=== PATIENT | male | born 1945 | race Caucasian/White ===

== ENCOUNTER → 2019-07-13 08:14 | Outpatient (BNVA) | payer MEDICARE, OTHER, SELFPAY | PROVIDERS: Family Provider Family Medicine; PCP Family Medicine; Referring Provider Family Medicine; Visit Provider Family Medicine | DX: E11.9 Type 2 diabetes mellitus without complications (principal) | CPT/HCPCS: 80048; 83036 ==

== ENCOUNTER → 2019-09-02 12:20 | Outpatient (BNVA) | payer MEDICARE, OTHER, SELFPAY | PROVIDERS: Family Provider Family Medicine; PCP Family Medicine; Referring Provider Family Medicine; Visit Provider Anesthesiology Pain Medicine | DX: M47.816 Spondylosis without myelopathy or radiculopathy, lumbar region (principal); Z79.891 Long term (current) use of opiate analgesic | CPT/HCPCS: 99205 ==

== ENCOUNTER → 2019-09-10 12:29 | Outpatient (BNVA) | payer MEDICARE, OTHER, SELFPAY | PROVIDERS: Family Provider Family Medicine; PCP Family Medicine; Visit Provider Anesthesiology Pain Medicine | DX: M47.816 Spondylosis without myelopathy or radiculopathy, lumbar region (principal) | CPT/HCPCS: 64635; 64636; 77003; J1030; J2001 ==

== ENCOUNTER → 2019-09-21 09:18 | Outpatient (BNVA) | payer MEDICARE, OTHER, SELFPAY | PROVIDERS: Family Provider Family Medicine; PCP Family Medicine; Visit Provider Family Medicine | DX: Z94.0 Kidney transplant status (principal) | CPT/HCPCS: 80053; 80197; 81000; 82310; 82570; 83735; 83970; 84156; 84550; 85025 ==

== ENCOUNTER → 2019-09-24 09:07 | Outpatient (BNVA) | payer MEDICARE, OTHER, SELFPAY | PROVIDERS: Family Provider Family Medicine; PCP Family Medicine; Visit Provider Anesthesiology Pain Medicine | DX: M47.816 Spondylosis without myelopathy or radiculopathy, lumbar region (principal); M54.9 Dorsalgia, unspecified; M54.2 Cervicalgia; M77.12 Lateral epicondylitis, left elbow | CPT/HCPCS: 99213 ==

== ENCOUNTER → 2019-10-12 08:58 | Outpatient (BNVA) | payer MEDICARE, OTHER, SELFPAY | PROVIDERS: Family Provider Family Medicine; PCP Family Medicine; Referring Provider Family Medicine; Visit Provider Family Medicine | DX: E11.9 Type 2 diabetes mellitus without complications (principal) | CPT/HCPCS: 80048; 82985 ==

== ENCOUNTER → 2019-11-16 09:10 | Outpatient (BNVA) | payer MEDICARE, OTHER, SELFPAY | PROVIDERS: Family Provider Family Medicine; PCP Family Medicine; Visit Provider Anesthesiology Pain Medicine | DX: M54.41 Lumbago with sciatica, right side (principal); M47.816 Spondylosis without myelopathy or radiculopathy, lumbar region; M54.9 Dorsalgia, unspecified; M54.2 Cervicalgia; M77.12 Lateral epicondylitis, left elbow; Z79.891 Long term (current) use of opiate analgesic | CPT/HCPCS: 99214 ==

== ENCOUNTER → 2019-11-24 13:28 | Outpatient (BNVA) | payer MEDICARE, OTHER, SELFPAY | PROVIDERS: Family Provider Family Medicine; PCP Family Medicine; Visit Provider Anesthesiology Pain Medicine | DX: M54.9 Dorsalgia, unspecified (principal); M54.41 Lumbago with sciatica, right side; M47.816 Spondylosis without myelopathy or radiculopathy, lumbar region; Z79.891 Long term (current) use of opiate analgesic | CPT/HCPCS: 64483; 64484; J1040; J2001; J3490 ==

== ENCOUNTER → 2019-12-17 09:08 | Outpatient (BNVA) | payer MEDICARE, OTHER, SELFPAY | PROVIDERS: Family Provider Family Medicine; PCP Family Medicine; Referring Provider Family Medicine; Visit Provider Family Medicine | DX: Z94.0 Kidney transplant status (principal) | CPT/HCPCS: 80053; 80197; 82310; 82570; 83735; 83970; 84156; 84550; 85025 ==

== ENCOUNTER → 2020-01-07 08:27 | Outpatient (BNVA) | payer MEDICARE, OTHER, SELFPAY | PROVIDERS: Family Provider Family Medicine; PCP Family Medicine; Visit Provider Family Medicine | DX: Z94.0 Kidney transplant status (principal) | CPT/HCPCS: 80053; 80197; 82310; 83735; 83970; 85025 ==

== ENCOUNTER 2020-01-17 13:28 | Emergency (ER) | payer MEDICARE, OTHER, SELFPAY ==
[2020-01-17 13:36] VITALS: BP 206/94; PULSE 79; RESP 20; TEMP 36.6; O2SAT 98; BMI 30.1
[2020-01-17 14:18] LABS: Basophils % 0.2 %; Eosinophils % 0.4 %; Hematocrit 47.9 % (42.0-52.0); Hemoglobin 14.9 g/dL (11.7-16.6); Lymphocytes # 0.9 10^3/uL (0.8-4.8); Lymphocytes % 10.2 %; Mean Corpuscular HGB Conc 31.1 g/dL (30.0-36.0); Mean Corpuscular Hemoglobin 27.7 pg (28.0-34.0); Mean Corpuscular Volume 89.2 fL (80-94); Mean Platelet Volume 10.1 fL (7.4-10.4); Monocytes # 0.9 10^3/uL (0.2-0.9); Monocytes % 9.2 %; Neutrophils # 7.33 10^3/uL (1.8-7.7); Neutrophils % 79.6 %; Nucleated Red Blood Cells % 0 %; Platelet Count 166 10^3/cmm (130-400); Red Blood Count 5.37 10^6/uL (4.1-5.3); Red Cell Distribution Width 14.5 % (12.1-15.1); White Blood Count 9.2 10^3/uL (4.0-10.0)
[2020-01-17 14:27] LABS: Partial Thromboplastin Time 35.8 SECONDS (23.9-36.7)
[2020-01-17 14:31] LABS: Urine Color Red (Yellow)
[2020-01-17 14:32] LABS: Bilirubin Urine Neg (NEGATIVE); Blood Urine 3+ (Negative); Glucose Urine UA Norm (Normal); Ketones Urine Negative (Negative); Leukocyte Esterase Urine 2+ (Negative); Nitrate Urine Negative (Negative); Protein Urine 1+ (Negative); Urobilinogen Urine Neg (Negative); pH Urine 8 (5-7)
[2020-01-17 14:33] LABS: Bacteria Urine 2+; RBC Urine 25-40 /hpf (0-2); Squamous Epithelial Cell Urine 0-4 (0-5); WBC Urine 55-80 /hpf (0-5)
[2020-01-17 14:34] LABS: Add Urine Culture? Yes
[2020-01-17 14:39] LABS: Alanine Aminotransferase 22 U/L (0-41); Albumin Level 4.7 g/dL (3.5-5.2); Alkaline Phosphatase 94 IU/L (40-130); Anion Gap 14.5 (5-19); Aspartate Amino Transferase 21 U/L (0-40); Blood Urea Nitrogen 18 mg/dL (8-23); Calcium 10.7 mg/dL (8.5-10.5); Carbon Dioxide 27 mmol/L (22-29); Chloride 102 mmol/L (98-107); Globulin 2.7 g/dL (1.3-4.6); Glucose 56 mg/dL (65-115); Osmolality Calculated 282 mOsm/kg (285-295); Potassium 4.5 mmol/L (3.5-5.1); Sodium 139 mmol/L (136-145); Total Protein 7.4 g/dL (6.6-8.7)
--- NOTE | 2020-01-17 14:41 | ED_ITS ---
HPI - Male Genitourinary General: Chief complaint: Urogenital-Male Stated complaint: blood in urine Time Seen by Provider: 01/17/20 14:04 History of Present Illness: HPI Narrative: Patient is a 74-year-old male who comes to the ED with UTI symptoms. Patient has a past medical history of diabetes, A. fib, dyslipidemia, end-stage renal disease with kidney transplant. The last 24 hours patient started developing increased urine frequency, visible blood in the urine and pain/burning sensation when urinating. Patient denies fever, chills, nausea/vomiting, abdominal pain, chest pain or shortness of breath or bowel symptoms. Associated symptoms: Reports dysuria and hematuria; Deny nausea or vomiting Review of Systems Const: Denies: fever(s), chills or fatigue Eyes: Denies: change in vision or eye discomfort ENMT: Denies: throat pain, odynophagia, nasal discharge or nasal congestion Card: Denies: chest pain, palpitations, edema, swelling of feet/ankles, dyspnea on exertion or orthopnea Resp: Denies: dyspnea, productive cough or non-productive cough GI: Denies: abdominal pain, nausea, vomiting, diarrhea, constipation or hematochezia : Reports: flank pain (Patient started developing some left flank pain today.), dysuria, urinary frequency and hematuria; Denies: difficulty urinating Musc: Denies: neck pain, back pain or extremity swelling Skin/Breast: Denies: rash or new lesions Neuro: Denies: headache(s), numbness in extremities or weakness in extremities PFS ED PFSH: Medical History Aortic root enlargement Diabetes Dyslipidemia End stage renal disease Essential hypertension assisted (current) use of opiate analgesic Myocardial infarction Pain management contract signed Paroxysmal atrial fibrillation Sleep apnea SVT (supraventricular tachycardia) Warfarin anticoagulation Surgical History Hx of amputation below knee Hx of CABG Hx of kidney transplant Family History Other CAD (coronary artery disease) Cancer Diabetes Hypertension Social History Smoking and tobacco status: former smoker Alcohol intake: former History of recent travel: No Physical Exam Const: COMMON NORMALS: no acute distress, patient oriented x3 and alert GENERAL APPEARANCE: cooperative and comfortable HENMT: COMMON NORMALS: normocephalic HEAD & SCALP: normocephalic MOUTH: Normal oral and palatal mucosa present THROAT: posterior oropharynx normal and uvula midline Neck/C-Spine: COMMON NORMALS: supple GENERAL: Yes normal visual inspection Resp: COMMON NORMALS: normal respiratory effort, No retractions, No use of accessory muscles and clear to auscultation bilaterally AUSCULTATION: clear to auscultation bilaterally Cardio: COMMON NORMALS: regular rate, S1 normal heart sound present, S2 normal heart sound present, No gallops present (Cardio), No clicks present (Cardio), No murmurs present (Cardio) and Peripheral pulses 2+ throughout RATE: regular rate RHYTHM: abnormal rhythm irregularly irregular HEART SOUNDS: S1 normal heart sound present and S2 normal heart sound present PERIPHERAL PULSES: Peripheral pulses 2+ throughout GI: COMMON NORMALS: Normal to inspection, nondistended, normoactive bowel sounds present, Soft to palpation and no masses AUSCULTATION: Yes normoactive bowel sounds PALPATION: Yes Soft to palpation and Yes Tenderness to palpation present (GI) Details: LLQ (Patient has had kidney transplant and it is placed in the left lower quadrant area of abdomen. He has some tenderness to palpation in that area.) : BLADDER/KIDNEY EXAM: Yes CVA tenderness on the left (Patient had left kidney transplanted and it is in his left lower quadrant of the abdomen and that is currently where he is tender upon palpation.) Back/Pelvis: GENERAL BACK: Yes CVA tenderness Extremity: GENERAL: Yes normal exam except as noted and Yes amputation (Left lower leg amputation above the knee.) Neuro: COMMON NORMALS: patient oriented x3 and moves all extremities SENSORIUM/ORIENTATION: Yes alert Skin: COMMON NORMALS: no rashes or lesions noted GENERAL SKIN EXAM: no rashes or lesions noted and dry skin Course Vital Signs: Vital signs: Vital Signs Temperature 97.9 F 01/17/20 13:36 Pulse Rate 98 01/17/20 16:28 Respiratory Rate 17 01/17/20 16:28 Blood Pressure 162/83 01/17/20 15:17 Pulse Oximetry 97 01/17/20 16:28 MDM - Male MDM Narrative: Medical decision making narrative: she saw patient is a 74-year-old male who comes to the ED with UTI symptoms. Symptoms started approximately 24 hours ago. Sensation when he urinates, blood in the urine and increased frequency.Symptoms include burning Patient has a past medical history of diabetes, A. fib, NC below the knee amputation, end-stage renal disease with kidney transplant approximately 8 years ago.Patient states this is the first UTI he has had since kidney transplant. White blood cell count 9.2. And a creatinine of 1.4 Which appears to be patient's baseline creatinine level after looking over previous labs. Patient was given a dose of IV Rocephin while here in the unit and discharged with a prescription of ciprofloxacin. I told patient to follow-up with his kidney doctor in the next 3 days to discuss UTI. I also told to follow-up with his PCP in 3 to 5 days. Return to ED precautions given. Patient understood and agreed with plan. Lab Data: Attestation: I reviewed the patient's lab results. Labs: Lab Results 01/17/20 01/17/20 01/17/20 Range/Units 13:59 14:13 14:13 WBC 9.2 (4.0-10.0) 10^3/ uL RBC 5.37 H (4.1-5.3) 10^6/u L Hgb 14.9 (11.7-16.6) g/dL Hct 47.9 (42.0-52.0) % MCV 89.2 (80-94) fL MCH 27.7 L (28.0-34.0) pg MCHC 31.1 (30.0-36.0) g/dL RDW 14.5 (12.1-15.1) % Plt Count 166 (130-400) 10^3/c mm MPV 10.1 (7.4-10.4) fL Neut % (Auto) 79.6 % Lymph % (Auto) 10.2 % [place] % (Auto) 9.2 % Eos % (Auto) 0.4 % Baso % (Auto) 0.2 % Neut # (Auto) 7.33 (1.8-7.7) 10^3/u L Lymph # (Auto) 0.9 (0.8-4.8) 10^3/u L [place] # (Auto) 0.9 (0.2-0.9) 10^3/u L Eos # (Auto) 0.0 (0.0-0.8) 10^3/u L Baso # (Auto) 0.0 (0.0-0.1) 10^3/u L Nucleated RBC % (a uto) 0 % Nucleated RBCs # 0.0 /100WBC PT 26.20 H (10.5-13.3) SECO NDS INR 2.30 H (0.8-1.2) APTT 35.8 (23.9-36.7) SECO NDS Sodium (136-145) mmol/L Potassium (3.5-5.1) mmol/L Chloride (98-107) mmol/L Carbon Dioxide (22-29) mmol/L Anion Gap (5-19) BUN (8-23) mg/dL Creatinine (0.7-1.2) mg/dL GFR Calculation Glucose (65-115) mg/dL Calculated Osmolal ity (285-295) mOsm/k g Calcium (8.5-10.5) mg/dL Total Bilirubin (0.15-1.2) mg/dL AST (0-40) U/L ALT (0-41) U/L Alkaline Phosphata se (40-130) IU/L Total Protein (6.6-8.7) g/dL Albumin (3.5-5.2) g/dL Globulin (1.3-4.6) g/dL Urine Color Red (Yellow) Urine Appearance Sl cloudy A (CLEAR) Urine pH 8 H (5-7) Ur Specific Gravit y 1.010 (1.005-1.030) Urine Protein 1+ H (Negative) Urine Glucose (UA) Norm (Normal) Urine Ketones Negative (Negative) Urine Blood 3+ H (Negative) Urine Nitrate Negative (Negative) Urine Bilirubin Neg (NEGATIVE) Urine Urobilinogen Neg (Negative) mg/dL Ur Leukocyte Kalee ase 2+ H (Negative) Urine RBC 25-40 H (0-2) /hpf Urine WBC 55-80 H (0-5) /hpf Ur Squamous Epith Cells 0-4 H (0-5) Amorphous Sediment Not Reportable Urine Bacteria 2+ H (NONE) 01/17/20 Range/Units 14:13 WBC (4.0-10.0) 10^3/ uL RBC (4.1-5.3) 10^6/u L Hgb (11.7-16.6) g/dL Hct (42.0-52.0) % MCV (80-94) fL MCH (28.0-34.0) pg MCHC (30.0-36.0) g/dL RDW (12.1-15.1) % Plt Count (130-400) 10^3/c mm MPV (7.4-10.4) fL Neut % (Auto) % Lymph % (Auto) % [place] % (Auto) % Eos % (Auto) % Baso % (Auto) % Neut # (Auto) (1.8-7.7) 10^3/u L Lymph # (Auto) (0.8-4.8) 10^3/u L [place] # (Auto) (0.2-0.9) 10^3/u L Eos # (Auto) (0.0-0.8) 10^3/u L Baso # (Auto) (0.0-0.1) 10^3/u L Nucleated RBC % (a uto) % Nucleated RBCs # /100WBC PT (10.5-13.3) SECO NDS INR (0.8-1.2) APTT (23.9-36.7) SECO NDS Sodium 139 (136-145) mmol/L Potassium 4.5 (3.5-5.1) mmol/L Chloride 102 (98-107) mmol/L Carbon Dioxide 27 (22-29) mmol/L Anion Gap 14.5 (5-19) BUN 18 (8-23) mg/dL Creatinine 1.4 H (0.7-1.2) mg/dL GFR Calculation Not Reportable Glucose 56 L (65-115) mg/dL Calculated Osmolal ity 282 L (285-295) mOsm/k g Calcium 10.7 H (8.5-10.5) mg/dL Total Bilirubin 1.0 (0.15-1.2) mg/dL AST 21 (0-40) U/L ALT 22 (0-41) U/L Alkaline Phosphata se 94 (40-130) IU/L Total Protein 7.4 (6.6-8.7) g/dL Albumin 4.7 (3.5-5.2) g/dL Globulin 2.7 (1.3-4.6) g/dL Urine Color (Yellow) Urine Appearance (CLEAR) Urine pH (5-7) Ur Specific Gravit y (1.005-1.030) Urine Protein (Negative) Urine Glucose (UA) (Normal) Urine Ketones (Negative) Urine Blood (Negative) Urine Nitrate (Negative) Urine Bilirubin (NEGATIVE) Urine Urobilinogen (Negative) mg/dL Ur Leukocyte Kalee ase (Negative) Urine RBC (0-2) /hpf Urine WBC (0-5) /hpf Ur Squamous Epith Cells (0-5) Amorphous Sediment Urine Bacteria (NONE) Discharge Plan Discharge Patient Disposition: Home Clinical Impression: Acute cystitis with hematuria Condition: Stable Prescriptions: New ciprofloxacin HCl 250 mg tablet 250 mg PO BID 10 Days Qty: 20 RF: 0 No Action aspirin [Adult Low Dose Aspirin] 81 mg tablet,delayed release (DR/EC) 81 mg PO DAILY RF: 0 tacrolimus 1 mg capsule 1 mg PO Q12H RF: 0 mycophenolate mofetil 250 mg capsule 500 mg PO BID RF: 0 prednisone 5 mg tablet 5 mg PO DAILY RF: 0 carvedilol 12.5 mg tablet 12.5 mg PO Q12H RF: 0 famotidine [Acid Black Oxide Coating Equipment Tender (famotidine)] 20 mg tablet 20 mg PO DAILY RF: 0 cholecalciferol (vitamin D3) 3,000 unit tablet 3,000 unit PO DAILY RF: 0 magnesium oxide 400 mg magnesium tablet 400 mg PO DAILY RF: 0 cetirizine [All Day Allergy (cetirizine)] 10 mg tablet 5 mg PO DAILY PRN (Reason: allergies) RF: 0 atorvastatin [Lipitor] 20 mg tablet 20 mg PO DAILY RF: 0 digoxin 125 mcg (0.125 mg) tablet 125 mcg PO DAILY 90 Days Qty: 90 RF: 3 warfarin 5 mg tablet 5 mg PO DAILY 90 Days Qty: 90 RF: 3 tamsulosin 0.4 mg capsule 0.4 mg PO DAILY 90 Days Qty: 90 RF: 3 amlodipine 5 mg tablet 5 mg PO DAILY RF: 0 insulin aspart U-100 [Novolog U-100 Insulin aspart] 100 unit/mL solution See Rx Instructions .ROUTE .COMPLEX RF: 0 Discharge Orders: Discharge Order (Routine); Ordered 01/17/20 Ordered By: Andrea Mejia Referrals: Mercy Priest MD [Primary Care Provider] - Discharge Diet: Regular Discharge Activity: Resume usual activity Patient Instructions: Urinary Tract Infection in Men (ED) Activity Restrictions/Additional Instructions: Follow-up with medical provider as directed in 3 to 5 days. Take medications as prescribed. Return to the ER or your medical provider if condition worsens. Please read and understand discharge instructions. If any questions, please ask. Discharge Date/Time: 01/17/20 16:11 Coding Level of Care Code ED Application Infrastructure Engineer for Chg Fwd Exam Comprehensive
[2020-01-17 15:17] VITALS: BP 162/83; PULSE 77; RESP 17; O2SAT 98
[2020-01-17] MEDS: cefTRIAXone 2,000 MG in sodium chloride 0.9% (plus) 50 ML 100 MG IV (15:42)
[2020-01-17 16:28] VITALS: PULSE 98; RESP 17; O2SAT 97
== END 2020-01-17 16:11 | disposition home or self-care (01) ==
PROVIDERS: Emergency Medicine; Emergency Provider Physician Assistant; PCP Family Medicine
DX: N30.01 Acute cystitis with hematuria (principal); Z79.01 Long term (current) use of anticoagulants; Z79.82 Long term (current) use of aspirin; Z79.4 Long term (current) use of insulin; E11.22 Type 2 diabetes mellitus with diabetic chronic kidney disease; I12.0 Hypertensive chronic kidney disease with stage 5 chronic kidney disease or end stage renal disease; N18.6 End stage renal disease; E78.5 Hyperlipidemia, unspecified; I25.2 Old myocardial infarction; I48.0 Paroxysmal atrial fibrillation; Z95.1 Presence of aortocoronary bypass graft; Z94.0 Kidney transplant status; Z87.891 Personal history of nicotine dependence
CPT/HCPCS: 12345; 36415; 80053; 81001; 85025; 85610; 85730; 87077; 87086; 87186; 96365; 99283; J0696

== ENCOUNTER 2020-01-17 18:57 | Emergency (ER) | payer MEDICARE, OTHER, SELFPAY ==
[2020-01-17 19:05] VITALS: BP 129/67; PULSE 112; RESP 18; TEMP 37.4; O2SAT 93
--- NOTE | 2020-01-17 19:17 | XRR_ITS ---
PROCEDURE INFORMATION: Exam: XR Chest, 1 View Exam date and time: 01/17/2020 8:11 PM Age: 74 years old Clinical indication: Prior surgery; Surgery date: 6+ months; Surgery type: Open heart-cabg. Kidney transplant; Patient HX: Fever, confusion. UTI TECHNIQUE: Imaging protocol: XR of the chest Views: 1 view. COMPARISON: CT chest wo con [id number] 06/02/2018 9:05 AM FINDINGS: Lungs: Mild airspace disease left lung base. Possible small subpulmonic effusion. Consider two-view chest. Pleural space: See Lungs finding. Heart/Mediastinum: Cardiac silhouette is enlarged. Bones/joints: prior sternotomy. Prior surgical fixation of the caudal aspect of the cervical spine. XR/XR chest 1V portable [id number] IMPRESSION: Mild airspace disease left lung base. Possible small subpulmonic effusion. Consider two-view chest.
--- NOTE | 2020-01-17 19:18 | ECG_ITS ---
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 Measurements Intervals [place] Rate: 103 P: IA: -1 QRS: 9 QRSD: 159 T: 60 QT: 316 QTc: 416 Interpretive Statements ATRIAL FIBRILLATION WITH RAPID VENTRICULAR RESPONSE RIGHT BUNDLE BRANCH BLOCK [120+ ms QRS DURATION, UPRIGHT V1, 40+ ms S IN I/aVL/V4/V5/V6] No previous ECG available for comparison Electronically Signed On 01-17-2020 21:33:59 CDT by Conchita Muhammad M.D. [id number]
[2020-01-17 19:31] VITALS: BP 145/82; PULSE 112; RESP 20; O2SAT 94
[2020-01-17 19:47] LABS: ABG PCO2 29.2 mmHg (35-45); ABG PH Result 7.48 (7.35-7.45); Arterial Blood Gas Hematocrit 42.3 % (42-52); Blood Gas Allen Test Pos; Blood Gas Sample Site Radial, left; Blood Gas Sample Type Arterial; HCO3 ABG 21.5 mmol/L (22-26)
[2020-01-17 19:54] LABS: Basophils % 0.2 %; Eosinophils % 0.2 %; Hematocrit 42.1 % (42.0-52.0); Hemoglobin 13.4 g/dL (11.7-16.6); Lymphocytes # 0.2 10^3/uL (0.8-4.8); Lymphocytes % 3.9 %; Mean Corpuscular HGB Conc 31.8 g/dL (30.0-36.0); Mean Corpuscular Hemoglobin 28.3 pg (28.0-34.0); Mean Corpuscular Volume 88.8 fL (80-94); Mean Platelet Volume 10.8 fL (7.4-10.4); Monocytes # 0.1 10^3/uL (0.2-0.9); Monocytes % 2.2 %; Neutrophils # 5.47 10^3/uL (1.8-7.7); Neutrophils % 92.8 %; Nucleated Red Blood Cells % 0 %; Platelet Count 116 10^3/cmm (130-400); Red Blood Count 4.74 10^6/uL (4.1-5.3); Red Cell Distribution Width 14.2 % (12.1-15.1); White Blood Count 5.9 10^3/uL (4.0-10.0)
[2020-01-17] MEDS: ondansetron 2 mg/ML SDV 2 mL 4 MG IVP (20:03)
[2020-01-17] MEDS: sodium chloride 0.9% 1,000 ML 999 ML IV ×2 (20:04→23:45)
[2020-01-17 20:05] LABS: Lactic Sepsis W/Reflex 1.8 mmol/L (0.5-2.2)
[2020-01-17 20:13] LABS: Alanine Aminotransferase 18 U/L (0-41); Albumin Level 3.9 g/dL (3.5-5.2); Alkaline Phosphatase 83 IU/L (40-130); Aspartate Amino Transferase 19 U/L (0-40); Blood Urea Nitrogen 25 mg/dL (8-23); Calcium 9.8 mg/dL (8.5-10.5); Carbon Dioxide 20 mmol/L (22-29); Chloride 101 mmol/L (98-107); Globulin 2.3 g/dL (1.3-4.6); Glucose 224 mg/dL (65-115); Magnesium 1.3 mg/dL (1.7-2.3); Osmolality Calculated 284 mOsm/kg (285-295); Sodium 135 mmol/L (136-145); Total Bilirubin 1.1 mg/dL (0.15-1.2); Total Protein 6.2 g/dL (6.6-8.7)
[2020-01-17 20:15] LABS: Troponin(5th) Baseline 56 ng/L (0-15)
--- NOTE | 2020-01-17 20:22 | CTR_ITS ---
PROCEDURE INFORMATION: Exam: CT Abdomen And Pelvis Without Contrast Exam date and time: 01/17/2020 8:48 PM Age: 74 years old Clinical indication: Abdominal pain; Prior surgery; Surgery type: Left kidney transplant, appy; Additional info: Flank/abdominal pain TECHNIQUE: Imaging protocol: Computed tomography of the abdomen and pelvis without contrast. Radiation optimization: All CT scans at this facility use at least one of these dose optimization techniques: automated exposure control; mA and/or kV adjustment per patient size (includes targeted exams where dose is matched to clinical indication); or iterative reconstruction. COMPARISON: CT abdomen pelvis wo con [id number] 05/20/2018 2:29 PM RADIATION DOSE METRICS: Total DLP (mGy-cm): 1673.51 FINDINGS: Lungs: Nonspecific bibasilar opacity is present, consistent with atelectasis, edema, or pneumonia. Heart: The heart is enlarged. The inferior vena cava is enlarged compatible probable right heart failure. Mediastinal space: A small hiatal hernia is present. Liver: There is a 1 cm hypodense lesion right lobe of the liver image 31 today that previously measured 6 mm. There is a 7 mm hypodensity in the posterior right lobe of the liver image 26 today that previously measured 5 mm. The liver is enlarged. Gallbladder and bile ducts: Multiple calcified gallstones are present. There is no wall thickening or pericholecystic fluid to suggest cholecystitis. Pancreas: Normal. No ductal dilation. Spleen: Normal. No splenomegaly. Adrenals: Normal. No mass. Kidneys and ureters: There is a transplanted kidney in the left iliac fossa. No hydronephrosis or obstructing calculus but there is abundant perinephric fat stranding which has increased since the prior exam. The measurement of the transplanted kidney is also slightly larger today measuring 9.1 by 6.2 by 9.0 cm or previously it was 8.9 by 6.0 x 8.6 cm. The [place] kidneys are atrophic with extensive renal vascular calcifications and/or nonobstructive nephrolithiasis without hydronephrosis. Stomach and bowel: There is no evidence of intestinal perforation or obstruction. There is no evidence of intestinal perforation or obstruction. There is no evidence of colitis/diverticulitis. Appendix: The appendix is not definitively identified. However, there is no CT evidence of a right lower quadrant inflammatory process. Intraperitoneal space: Unremarkable. No free air. No significant fluid collection. Vasculature: The aorta demonstrates moderate atherosclerotic calcification. Lymph nodes: Unremarkable.No enlarged lymph nodes. Bladder: There is nonspecific bladder wall thickening. This may be related to cystitis versus incomplete distention. Reproductive: The prostate demonstrates moderate nonspecific enlargement. The seminal vesicles are normal. Bones/joints: There is severe degenerative changes in the lower lumbar spine. No acute bony abnormality. Soft tissues: There is a fat-containing umbilical hernia. Other findings: . CT/CT kidney stone [id number] IMPRESSION: 1. Nonspecific bibasilar opacity is present, consistent with atelectasis, edema, or pneumonia. 2. There is a transplanted kidney in the left iliac fossa. No hydronephrosis or obstructing calculus but there is abundant perinephric fat stranding which has increased since the prior exam. Transplanted kidney is also larger concerning for edema as seen with rejection or pyelonephritis. 3. There is diffuse bladder wall thickening that may reflect lack of distention versus cystitis. 4. Two indeterminate small hypodensities are noted in the liver and appears slightly larger than the prior exam. This may reflect metastatic disease. MRI may be helpful for further characterization. Radiation Dose CTDIVOL = (mGy): DLP = 1673.51 (mGy-cm)
[2020-01-17 20:24] LABS: Alcohol Level < 10 mg/dL (0-10)
--- NOTE | 2020-01-17 20:42 | ED_ITS ---
Documented by User: Keke Hartley 01/17/20 23:30 HPI - Altered Mental Status General: Chief Complaint: Altered Mental Status Stated Complaint: fever Time Seen by Provider: 01/17/20 19:10 Source: patient Mode of arrival: wheelchair Limitations: no limitations History of Present Illness: HPI narrative: Mr. Kidd is a 74-year-old male brought in by his with report of altered mental status and fever. Of note the patient was seen earlier here today for a UTI and discharged home on Cipro. Please see that note for details. The patient's states as they were going home he was become more more confused and she can feel that he has a fever. The patient has a kidney transplant and is currently on mycophenolate, tacrolimus and prednisone. The patient here does respond to verbal stimuli will follow commands but appears confused. Is been no other changes since leaving the hospital according to his . All history is taken from the patient's and old charts. Review of Systems General: Reports: ROS unobtainable due to mental status PFSH ED PFSH: Medical History Aortic root enlargement Diabetes Dyslipidemia End stage renal disease Essential hypertension long-term (current) use of opiate analgesic Myocardial infarction Pain management contract signed Paroxysmal atrial fibrillation Sleep apnea SVT (supraventricular tachycardia) Warfarin anticoagulation Surgical History Hx of amputation below knee Hx of CABG Hx of kidney transplant Family History Other CAD (coronary artery disease) Cancer Diabetes Hypertension Social History Smoking and tobacco status: former smoker Alcohol intake: former History of recent travel: No Physical Exam Const: GENERAL APPEARANCE: lethargic ORIENTATION/CONSCIOUSNESS: Yes lethargic HENMT: COMMON NORMALS: normocephalic, atraumatic, external ears normal, EAC's normal and Normal external nose present HEAD & SCALP: normal to inspection, normocephalic and atraumatic FACE & SINUS: normal facial exam and face symmetric NOSE: Normal external nose present and Normal nares present EXTERNAL EAR: Yes external ears normal EXTERNAL AUDITORY CANAL: EAC's normal MOUTH: Normal oral and palatal mucosa present, lip normal and tongue normal Eye: COMMON NORMALS: Equal, round and reactive pupils present and conjunctivae normal GENERAL EYE: appearance normal, both eyes and all related structures ALIGNMENT: Yes alignment normal PERIORBITAL: periorbital findings normal EYELID: eyelids normal CONJUNCTIVA: Yes conjunctivae normal SCLERA: sclerae normal PUPIL: Yes Equal, round and reactive pupils present Neck/C-Spine: COMMON NORMALS: full ROM, no lymphadenopathy, supple, no meningeal signs and no JVD GENERAL: Yes normal visual inspection and Yes trachea midline Chest: COMMONS NORMALS: normal inspection of the chest and normal palpation of entire chest wall Resp: COMMON NORMALS: normal respiratory effort, No retractions and No use of accessory muscles EFFORT & INSPECTION: Yes able to speak in complete sentences and Yes symmetric chest movement AUSCULTATION: no crackles, no rales, no rhonchi and no wheezes Cardio: COMMON NORMALS: no JVD, regular rate, regular rhythm, S1 normal heart sound present and S2 normal heart sound present RATE: regular rate RHYTHM: regular rhythm HEART SOUNDS: S1 normal heart sound present, S2 normal heart sound present, no click, no gallops, no murmurs, no rubs and abnormal split S2 GI: COMMON NORMALS: Soft to palpation and No hepatosplenomegaly present PALPATION: Yes Soft to palpation, Yes Tenderness to palpation present (GI) (Mild diffusely), No Guarding due to palpation present (GI), No Rigid due to palpation, Yes No hepatosplenomegaly present, No Hernia present, No Palpable mas s present and No Pulsatile mass present : COMMON NORMALS: Yes no CVA tenderness BLADDER/KIDNEY EXAM: Yes no CVA tenderness Back/Pelvis: COMMON NORMALS: no CVA tenderness, thoracic and lumbar spine normal to inspection, no thoracic nor lumbar tenderness and thoraco-lumbar ROM normal Extremity: COMMON NORMALS: normal to inspection, full ROM, capillary refill normal, no joint enlargement, no clubbing, cyanosis or edema and no calf tenderness Neuro: MARY ANN COMA SCALE: document GCS findings Mary Ann coma scale eye opening: To sound Mary Ann coma scale verbal response: Confused Cameron coma scale motor response: Obey commands Cameron coma scale total score: 13 COMMON NORMALS: moves all extremities, no focal motor deficits and no sensory deficits noted SENSORIUM/ORIENTATION: Yes lethargic MENINGEAL SIGNS: Yes no meningeal signs Skin: COMMON NORMALS: no rashes or lesions noted, turgor normal, no jaundice, no petechiae and no mottling GENERAL SKIN EXAM: no rashes or lesions noted and turgor normal Course ED course: 2151 -patient is doing much better at this time. His mentation is clear he has a GCS of 15. Vital signs are still stable with good blood pressure he is slightly tachycardic in the 110s.. Vital Signs: Vital signs: Vital Signs Temperature 98.0 F 01/18/20 04:54 Pulse Rate 89 01/18/20 08:56 Respiratory Rate 20 H 01/18/20 08:56 Blood Pressure 119/68 01/18/20 08:56 Pulse Oximetry 92 01/18/20 08:56 MDM - Altered Mental Status MDM Narrative: Medical decision making narrative: 2314 -Case reviewed with Dr. Souza, he is not comfortable keeping the patient here as we do not handle transplants and we have no ICU beds available. Case was reviewed with Dr. Simpson, glass bulb silverer on-call for Dr. Varghese the patient's doctor who handles his transplant at [facility]. He agrees with continued IV maintenance fluids after bolus is finished along with Rocephin 1 g every 12 hours. As long as the patient's blood pressure maintains and he is not becoming hypotensive or more altered he believes he is appropriate for transfer. He understands concerning the patient's remark on CT about a questionable rejection but he states this is tremendously unlikely as far out as the patient is from transplant. The case was then reviewed with the hospitalist Dr. Hensley at [facility]. He agrees the patient needs to be transferred but as they have no beds available he cannot accept the patient. He anticipates in the morning beds will be available and the patient can be accepted at that time. He will not be accepting but would like patient's case again reviewed and his status reviewed with the [facility] hospitalist when a bed is available. I will continue IV fluids, IV antibiotics and the patient will be monitored closely. Currently he has stable vital signs, he has no complaints. His mentation is good with a GCS of 14-15. He is afebrile he has a stable heart rate and blood pressure and he is making urine. His is still present with him and is going to stay until she needs to go home. I will sign the case over to Dr. Chaves who will monitor the patient through the night and likely transfer the patient over in the morning. I did make family aware that he could become much more ill as being on multiple immunosuppressive medications makes him very susceptible to this. She is aware and wants to move forward with aggressive care. Dr. Simpson stated the patient could continue all of his medications but the mycophenolate should be held. Other immunosuppressive medications can be given and oncoming physicians can manage this depending on patient's condition. Lab Data: Attestation: I reviewed the patient's lab results. Labs: Lab Results 01/17/20 01/17/20 01/17/20 Range/Units 19:30 19:30 19:30 WBC 5.9 (4.0-10.0) 10^3/ uL RBC 4.74 (4.1-5.3) 10^6/u L Hgb 13.4 (11.7-16.6) g/dL Hct 42.1 (42.0-52.0) % MCV 88.8 (80-94) fL MCH 28.3 (28.0-34.0) pg MCHC 31.8 (30.0-36.0) g/dL RDW 14.2 (12.1-15.1) % Plt Count 116 L (130-400) 10^3/c mm MPV 10.8 H (7.4-10.4) fL Neut % (Auto) 92.8 % Lymph % (Auto) 3.9 % [place] % (Auto) 2.2 % Eos % (Auto) 0.2 % Baso % (Auto) 0.2 % Neut # (Auto) 5.47 (1.8-7.7) 10^3/u L Lymph # (Auto) 0.2 L (0.8-4.8) 10^3/u L [place] # (Auto) 0.1 L (0.2-0.9) 10^3/u L Eos # (Auto) 0.0 (0.0-0.8) 10^3/u L Baso # (Auto) 0.0 (0.0-0.1) 10^3/u L Nucleated RBC % (a uto) 0 % Nucleated RBCs # 0.0 /100WBC PT (10.5-13.3) SECO NDS INR (0.8-1.2) Specimen Type Sample Site ABG pH (7.35-7.45) ABG pCO2 (35-45) mmHg ABG pO2 (80.0-100.0) mmH g ABG HCO3 (22-26) mmol/L ABG Base Excess (-2.0-2.0) mmol/ L Kiran Test Hematocrit (42-52) % Hunting And Fishing Guide ID Sodium 135 L (136-145) mmol/L Potassium 4.0 (3.5-5.1) mmol/L Chloride 101 (98-107) mmol/L Carbon Dioxide 20 L (22-29) mmol/L Anion Gap 18.0 (5-19) BUN 25 H (8-23) mg/dL Creatinine 1.5 H (0.7-1.2) mg/dL GFR Calculation Not Reportable Glucose 224 H (65-115) mg/dL Calculated Osmolal ity 284 L (285-295) mOsm/k g Lactic Acid 1.8 (0.5-2.2) mmol/L Calcium 9.8 (8.5-10.5) mg/dL Magnesium 1.3 L (1.7-2.3) mg/dL Total Bilirubin 1.1 (0.15-1.2) mg/dL AST 19 (0-40) U/L ALT 18 (0-41) U/L Alkaline Phosphata se 83 (40-130) IU/L Troponin T Baselin e (0-15) ng/L Troponin T 120 Min [place] (0-15) ng/L Delta Troponin T (0-10) ABS# Troponin T Hi Sens 6Hr (0-15) ng/L Troponin T Hi Sens 6Hr Delta (0-12) ng/L Total Protein 6.2 L (6.6-8.7) g/dL Albumin 3.9 (3.5-5.2) g/dL Globulin 2.3 (1.3-4.6) g/dL Urine Color (Yellow) Urine Appearance (CLEAR) Urine pH (5-7) Ur Specific Gravit y (1.005-1.030) Urine Protein (Negative) Urine Glucose (UA) (Normal) Urine Ketones (Negative) Urine Blood (Negative) Urine Nitrate (Negative) Urine Bilirubin (NEGATIVE) Urine Urobilinogen (Negative) mg/dL Ur Leukocyte Kalee ase (Negative) Urine RBC (0-2) /hpf Urine WBC (0-5) /hpf Ur Squamous Epith Cells (0-5) Amorphous Sediment Urine Bacteria (NONE) Digoxin (0.6-1.2) ng/mL Ethyl Alcohol < 10 (0-10) mg/dL 01/17/20 01/17/20 01/17/20 Range/Units 19:30 19:30 19:35 WBC (4.0-10.0) 10^3/ uL RBC (4.1-5.3) 10^6/u L Hgb (11.7-16.6) g/dL Hct (42.0-52.0) % MCV (80-94) fL MCH (28.0-34.0) pg MCHC (30.0-36.0) g/dL RDW (12.1-15.1) % Plt Count (130-400) 10^3/c mm MPV (7.4-10.4) fL Neut % (Auto) % Lymph % (Auto) % [place] % (Auto) % Eos % (Auto) % Baso % (Auto) % Neut # (Auto) (1.8-7.7) 10^3/u L Lymph # (Auto) (0.8-4.8) 10^3/u L [place] # (Auto) (0.2-0.9) 10^3/u L Eos # (Auto) (0.0-0.8) 10^3/u L Baso # (Auto) (0.0-0.1) 10^3/u L Nucleated RBC % (a uto) % Nucleated RBCs # /100WBC PT 28.40 H (10.5-13.3) SECO NDS INR 2.55 H (0.8-1.2) Specimen Type Arterial Sample Site Radial, left ABG pH 7.48 H (7.35-7.45) ABG pCO2 29.2 L (35-45) mmHg ABG pO2 54.0 L (80.0-100.0) mmH g ABG HCO3 21.5 L (22-26) mmol/L ABG Base Excess -1.0 (-2.0-2.0) mmol/ L Kiran Test Pos Hematocrit 42.3 (42-52) % Hunting And Fishing Guide ID ellpe Sodium (136-145) mmol/L Potassium (3.5-5.1) mmol/L Chloride (98-107) mmol/L Carbon Dioxide (22-29) mmol/L Anion Gap (5-19) BUN (8-23) mg/dL Creatinine (0.7-1.2) mg/dL GFR Calculation Glucose (65-115) mg/dL Calculated Osmolal ity (285-295) mOsm/k g Lactic Acid (0.5-2.2) mmol/L Calcium (8.5-10.5) mg/dL Magnesium (1.7-2.3) mg/dL Total Bilirubin (0.15-1.2) mg/dL AST (0-40) U/L ALT (0-41) U/L Alkaline Phosphata se (40-130) IU/L Troponin T Baselin e 56 H (0-15) ng/L Troponin T 120 Min [place] (0-15) ng/L Delta Troponin T (0-10) ABS# Troponin T Hi Sens 6Hr (0-15) ng/L Troponin T Hi Sens 6Hr Delta (0-12) ng/L Total Protein (6.6-8.7) g/dL Albumin (3.5-5.2) g/dL Globulin (1.3-4.6) g/dL Urine Color (Yellow) Urine Appearance (CLEAR) Urine pH (5-7) Ur Specific Gravit y (1.005-1.030) Urine Protein (Negative) Urine Glucose (UA) (Normal) Urine Ketones (Negative) Urine Blood (Negative) Urine Nitrate (Negative) Urine Bilirubin (NEGATIVE) Urine Urobilinogen (Negative) mg/dL Ur Leukocyte Kalee ase (Negative) Urine RBC (0-2) /hpf Urine WBC (0-5) /hpf Ur Squamous Epith Cells (0-5) Amorphous Sediment Urine Bacteria (NONE) Digoxin (0.6-1.2) ng/mL Ethyl Alcohol (0-10) mg/dL 01/17/20 01/17/20 01/17/20 Range/Units 21:04 21:04 21:13 WBC (4.0-10.0) 10^3/ uL RBC (4.1-5.3) 10^6/u L Hgb (11.7-16.6) g/dL Hct (42.0-52.0) % MCV (80-94) fL MCH (28.0-34.0) pg MCHC (30.0-36.0) g/dL RDW (12.1-15.1) % Plt Count (130-400) 10^3/c mm MPV (7.4-10.4) fL Neut % (Auto) % Lymph % (Auto) % [place] % (Auto) % Eos % (Auto) % Baso % (Auto) % Neut # (Auto) (1.8-7.7) 10^3/u L Lymph # (Auto) (0.8-4.8) 10^3/u L [place] # (Auto) (0.2-0.9) 10^3/u L Eos # (Auto) (0.0-0.8) 10^3/u L Baso # (Auto) (0.0-0.1) 10^3/u L Nucleated RBC % (a uto) % Nucleated RBCs # /100WBC PT (10.5-13.3) SECO NDS INR (0.8-1.2) Specimen Type Sample Site ABG pH (7.35-7.45) ABG pCO2 (35-45) mmHg ABG pO2 (80.0-100.0) mmH g ABG HCO3 (22-26) mmol/L ABG Base Excess (-2.0-2.0) mmol/ L Kiran Test Hematocrit (42-52) % Hunting And Fishing Guide ID Sodium (136-145) mmol/L Potassium (3.5-5.1) mmol/L Chloride (98-107) mmol/L Carbon Dioxide (22-29) mmol/L Anion Gap (5-19) BUN (8-23) mg/dL Creatinine (0.7-1.2) mg/dL GFR Calculation Glucose (65-115) mg/dL Calculated Osmolal ity (285-295) mOsm/k g Lactic Acid (0.5-2.2) mmol/L Calcium (8.5-10.5) mg/dL Magnesium (1.7-2.3) mg/dL Total Bilirubin (0.15-1.2) mg/dL AST (0-40) U/L ALT (0-41) U/L Alkaline Phosphata se (40-130) IU/L Troponin T Baselin e (0-15) ng/L Troponin T 120 Min [place] 73.92 H (0-15) ng/L Delta Troponin T 17.92 H* (0-10) ABS# Troponin T Hi Sens 6Hr (0-15) ng/L Troponin T Hi Sens 6Hr Delta (0-12) ng/L Total Protein (6.6-8.7) g/dL Albumin (3.5-5.2) g/dL Globulin (1.3-4.6) g/dL Urine Color Katie (Yellow) Urine Appearance Cloudy (CLEAR) Urine pH 5 (5-7) Ur Specific Gravit y 1.015 (1.005-1.030) Urine Protein 3+ H (Negative) Urine Glucose (UA) Trace H (Normal) Urine Ketones 1+ H (Negative) Urine Blood 3+ H (Negative) Urine Nitrate Negative (Negative) Urine Bilirubin Neg (NEGATIVE) Urine Urobilinogen Norm (Negative) mg/dL Ur Leukocyte Kalee ase Negative (Negative) Urine RBC Too numerous to c nt H (0-2) /hpf Urine WBC Too numerous to c nt H (0-5) /hpf Ur Squamous Epith Cells 5-10 H (0-5) Amorphous Sediment Not Reportable Urine Bacteria 2+ H (NONE) Digoxin 0.9 (0.6-1.2) ng/mL Ethyl Alcohol (0-10) mg/dL 01/18/20 Range/Units 01:38 WBC (4.0-10.0) 10^3/ uL RBC (4.1-5.3) 10^6/u L Hgb (11.7-16.6) g/dL Hct (42.0-52.0) % MCV (80-94) fL MCH (28.0-34.0) pg MCHC (30.0-36.0) g/dL RDW (12.1-15.1) % Plt Count (130-400) 10^3/c mm MPV (7.4-10.4) fL Neut % (Auto) % Lymph % (Auto) % [place] % (Auto) % Eos % (Auto) % Baso % (Auto) % Neut # (Auto) (1.8-7.7) 10^3/u L Lymph # (Auto) (0.8-4.8) 10^3/u L [place] # (Auto) (0.2-0.9) 10^3/u L Eos # (Auto) (0.0-0.8) 10^3/u L Baso # (Auto) (0.0-0.1) 10^3/u L Nucleated RBC % (a uto) % Nucleated RBCs # /100WBC PT (10.5-13.3) SECO NDS INR (0.8-1.2) Specimen Type Sample Site ABG pH (7.35-7.45) ABG pCO2 (35-45) mmHg ABG pO2 (80.0-100.0) mmH g ABG HCO3 (22-26) mmol/L ABG Base Excess (-2.0-2.0) mmol/ L Kiran Test Hematocrit (42-52) % Hunting And Fishing Guide ID Sodium (136-145) mmol/L Potassium (3.5-5.1) mmol/L Chloride (98-107) mmol/L Carbon Dioxide (22-29) mmol/L Anion Gap (5-19) BUN (8-23) mg/dL Creatinine (0.7-1.2) mg/dL GFR Calculation Glucose (65-115) mg/dL Calculated Osmolal ity (285-295) mOsm/k g Lactic Acid (0.5-2.2) mmol/L Calcium (8.5-10.5) mg/dL Magnesium (1.7-2.3) mg/dL Total Bilirubin (0.15-1.2) mg/dL AST (0-40) U/L ALT (0-41) U/L Alkaline Phosphata se (40-130) IU/L Troponin T Baselin e (0-15) ng/L Troponin T 120 Min [place] (0-15) ng/L Delta Troponin T (0-10) ABS# Troponin T Hi Sens 6Hr 71.00 H (0-15) ng/L Troponin T Hi Sens 6Hr Delta 15.00 H* (0-12) ng/L Total Protein (6.6-8.7) g/dL Albumin (3.5-5.2) g/dL Globulin (1.3-4.6) g/dL Urine Color (Yellow) Urine Appearance (CLEAR) Urine pH (5-7) Ur Specific Gravit y (1.005-1.030) Urine Protein (Negative) Urine Glucose (UA) (Normal) Urine Ketones (Negative) Urine Blood (Negative) Urine Nitrate (Negative) Urine Bilirubin (NEGATIVE) Urine Urobilinogen (Negative) mg/dL Ur Leukocyte Kalee ase (Negative) Urine RBC (0-2) /hpf Urine WBC (0-5) /hpf Ur Squamous Epith Cells (0-5) Amorphous Sediment Urine Bacteria (NONE) Digoxin (0.6-1.2) ng/mL Ethyl Alcohol (0-10) mg/dL Imaging Data^: CXR: My impression: No acute cardiopulmonary findings. CT Head: Radiologist's impression: [place] [address] CT Scan Report Signed Patient: Jaya Kidd Sr Unit #: [id number] : 1945 Age/Sex: 74 / M ADM Date: 01/17/20 Loc: ER Room/Bed: Attending Dr: Ordering Provider/Ordering MD: Keke Hartley DO Date of Service: 01/17/20 Procedure(s): CT head wo con* [id number] Accession Number(s): [id number] Report Number: [id number] PROCEDURE INFORMATION: Exam: CT Head Without Contrast Exam date and time: 01/17/2020 9:12 PM Age: 74 years old Clinical indication: Altered mental status/memory loss; Additional info: AMS TECHNIQUE: Imaging protocol: Computed tomography of the head without contrast. Radiation optimization: All CT scans at this facility use at least one of these dose optimization techniques: automated exposure control; mA and/or kV adjustment per patient size (includes targeted exams where dose is matched to clinical indication); or iterative reconstruction. COMPARISON: No relevant prior studies available. RADIATION DOSE METRICS: Total DLP (mGy-cm): 859.21 FINDINGS: Brain: There is volume loss and periventricular low density compatible with chronic small vessel disease changes. There is no acute hemorrhage, edema or mass effect. Ventricles: Normal. No ventriculomegaly. Bones/joints: Unremarkable. No acute fracture. Sinuses: There is mild mucosal thickening in the sinuses. No air-fluid levels. Mastoid air cells: There is trace opacification of the right mastoid air cells. The left mastoid air cells are clear. Soft tissues: Unremarkable. CT/CT head wo con* [id number] IMPRESSION: 1. No acute intracranial abnormality. 2. Trace opacification of the right mastoid air cells. Radiation Dose CTDIVOL = (mGy): DLP = 859.21 (mGy-cm) Dictated By: Jocy Blackwood Signed By: Jocy Blackwood Signed Date/Time: 01/17/202138 DD/ 37 CT Abd/Pel: Radiologist's impression: [place] [address] CT Scan Report Signed Patient: Jaya Kidd Sr Unit #: [id number] : 1945 Age/Sex: 74 / M ADM Date: 01/17/20 Loc: ER Room/Bed: Attending Dr: Ordering Provider/Ordering MD: Keke Hartley DO Date of Service: 01/17/20 Procedure(s): CT kidney stone 23027 Accession Number(s): [id number] Report Number: [id number] PROCEDURE INFORMATION: Exam: CT Abdomen And Pelvis Without Contrast Exam date and time: 01/17/2020 8:48 PM Age: 74 years old Clinical indication: Abdominal pain; Prior surgery; Surgery type: Left kidney transplant, appy; Additional info: Flank/abdominal pain TECHNIQUE: Imaging protocol: Computed tomography of the abdomen and pelvis without contrast. Radiation optimization: All CT scans at this facility use at least one of these dose optimization techniques: automated exposure control; mA and/or kV adjustment per patient size (includes targeted exams where dose is matched to clinical indication); or iterative reconstruction. COMPARISON: CT abdomen pelvis wo con [id number] 05/20/2018 2:29 PM RADIATION DOSE METRICS: Total DLP (mGy-cm): 1673.51 FINDINGS: Lungs: Nonspecific bibasilar opacity is present, consistent with atelectasis, edema, or pneumonia. Heart: The heart is enlarged. The inferior vena cava is enlarged compatible probable right heart failure. Mediastinal space: A small hiatal hernia is present. Liver: There is a 1 cm hypodense lesion right lobe of the liver image 31 today that previously measured 6 mm. There is a 7 mm hypodensity in the posterior right lobe of the liver image 26 today that previously measured 5 mm. The liver is enlarged. Gallbladder and bile ducts: Multiple calcified gallstones are present. There is no wall thickening or pericholecystic fluid to suggest cholecystitis. Pancreas: Normal. No ductal dilation. Spleen: Normal. No splenomegaly. Adrenals: Normal. No mass. Kidneys and ureters: There is a transplanted kidney in the left iliac fossa. No hydronephrosis or obstructing calculus but there is abundant perinephric fat stranding which has increased since the prior exam. The measurement of the transplanted kidney is also slightly larger today measuring 9.1 by 6.2 by 9.0 cm or previously it was 8.9 by 6.0 x 8.6 cm. The [place] kidneys are atrophic with extensive renal vascular calcifications and/or nonobstructive nephrolithiasis without hydronephrosis. Stomach and bowel: There is no evidence of intestinal perforation or obstruction. There is no evidence of intestinal perforation or obstruction. There is no evidence of colitis/diverticulitis. Appendix: The appendix is not definitively identified. However, there is no CT evidence of a right lower quadrant inflammatory process. Intraperitoneal space: Unremarkable. No free air. No significant fluid collection. Vasculature: The aorta demonstrates moderate atherosclerotic calcification. Lymph nodes: Unremarkable.No enlarged lymph nodes. Bladder: There is nonspecific bladder wall thickening. This may be related to cystitis versus incomplete distention. Reproductive: The prostate demonstrates moderate nonspecific enlargement. The seminal vesicles are normal. Bones/joints: There is severe degenerative changes in the lower lumbar spine. No acute bony abnormality. Soft tissues: There is a fat-containing umbilical hernia. Other findings: . CT/CT kidney stone [id number] IMPRESSION: 1. Nonspecific bibasilar opacity is present, consistent with atelectasis, edema, or pneumonia. 2. There is a transplanted kidney in the left iliac fossa. No hydronephrosis or obstructing calculus but there is abundant perinephric fat stranding which has increased since the prior exam. Transplanted kidney is also larger concerning for edema as seen with rejection or pyelonephritis. 3. There is diffuse bladder wall thickening that may reflect lack of distention versus cystitis. 4. Two indeterminate small hypodensities are noted in the liver and appears slightly larger than the prior exam. This may reflect metastatic disease. MRI may be helpful for further characterization. Radiation Dose CTDIVOL = (mGy): DLP = 1673.51 (mGy-cm) Dictated By: Jocy Blackwood Signed By: Jocy Blackwood Signed Date/Time: 01/17/202117 DD/ 16 EKG Data^: EKG 1: Attestation: I personally reviewed and interpreted this EKG as follows: EKG interpretation date: 01/17/20 EKG interpretation time: 20:00 Interpretation: Atrial fibrillation with a ventricular rate of 103 beats a minute, for about a branch block, no with acute ST-T wave changes. Similar to previous. Confirm no STEMI with Dr. Doran EKG 2: Attestation: I personally reviewed and interpreted this EKG as follows: EKG interpretation date: 01/17/20 EKG interpretation time: 22:09 Interpretation: Atrial fibrillation with a rate of 98 beats a minute, right bundle branch block, nonspecific ST-T wave changes. Similar to previous. No STEMI confirm with Dr. Doran. Discharge Plan Discharge Patient Disposition: Xfer Short-Term Hosp Clinical Impression: Hx of kidney transplant, Acute pyelonephritis Sepsis Qualifiers: Sepsis type: sepsis due to unspecified organism Sepsis acute organ dysfunction status: without acute organ dysfunction Qualified Code(s): A41.9 - Sepsis, unspecified organism Altered mental status Qualifiers: Altered mental status type: coma Coma depth: Mary Ann coma 13-15 Coma timing: at arrival to emergency department Qualified Code(s): R40.2412 - Cameron coma scale score 13-15, at arrival to emergency department Condition: Stable Referrals: Mercy Priest MD [Primary Care Provider] - Sign Out Sign Out Data: Patient Sign Out occurred on 01/18/20 at 06:21. Patient's care was discussed, and care was transferred from to Heath Saavedra DO. Coding Level of Care Code ED Real Time Analyst for Chg Fwd Exam Comprehensive Documented by User: Ila Chaves MD 01/18/20 05:33 HPI - Altered Mental Status General: Chief Complaint: Altered Mental Status Stated Complaint: fever Time Seen by Provider: 01/17/20 19:10 PFSH ED PFSH: Medical History Aortic root enlargement Diabetes Dyslipidemia End stage renal disease Essential hypertension long-term (current) use of opiate analgesic Myocardial infarction Pain management contract signed Paroxysmal atrial fibrillation Sleep apnea SVT (supraventricular tachycardia) Warfarin anticoagulation Surgical History Hx of amputation below knee Hx of CABG Hx of kidney transplant Family History Other CAD (coronary artery disease) Cancer Diabetes Hypertension Social History Smoking and tobacco status: former smoker Alcohol intake: former History of recent travel: No Course Vital Signs: Vital signs: Vital Signs Temperature 98.0 F 01/18/20 04:54 Pulse Rate 89 01/18/20 08:56 Respiratory Rate 20 H 01/18/20 08:56 Blood Pressure 119/68 01/18/20 08:56 Pulse Oximetry 92 01/18/20 08:56 MDM - Altered Mental Status MDM Narrative: Medical decision making narrative: Care turned over to me from Dr. Cheema. Patient has been stable with normal blood pressure. Patient is awaiting bed at [facility] and will transfer care to Dr. Saavedra in the ER at this time until patient gets a bed available at [facility]. Lab Data: Labs: Lab Results 01/17/20 01/17/20 01/17/20 Range/Units 19:30 19:30 19:30 WBC 5.9 (4.0-10.0) 10^3/ uL RBC 4.74 (4.1-5.3) 10^6/u L Hgb 13.4 (11.7-16.6) g/dL Hct 42.1 (42.0-52.0) % MCV 88.8 (80-94) fL MCH 28.3 (28.0-34.0) pg MCHC 31.8 (30.0-36.0) g/dL RDW 14.2 (12.1-15.1) % Plt Count 116 L (130-400) 10^3/c mm MPV 10.8 H (7.4-10.4) fL Neut % (Auto) 92.8 % Lymph % (Auto) 3.9 % [place] % (Auto) 2.2 % Eos % (Auto) 0.2 % Baso % (Auto) 0.2 % Neut # (Auto) 5.47 (1.8-7.7) 10^3/u L Lymph # (Auto) 0.2 L (0.8-4.8) 10^3/u L [place] # (Auto) 0.1 L (0.2-0.9) 10^3/u L Eos # (Auto) 0.0 (0.0-0.8) 10^3/u L Baso # (Auto) 0.0 (0.0-0.1) 10^3/u L Nucleated RBC % (a uto) 0 % Nucleated RBCs # 0.0 /100WBC PT (10.5-13.3) SECO NDS INR (0.8-1.2) Specimen Type Sample Site ABG pH (7.35-7.45) ABG pCO2 (35-45) mmHg ABG pO2 (80.0-100.0) mmH g ABG HCO3 (22-26) mmol/L ABG Base Excess (-2.0-2.0) mmol/ L Kiran Test Hematocrit (42-52) % Hunting And Fishing Guide ID Sodium 135 L (136-145) mmol/L Potassium 4.0 (3.5-5.1) mmol/L Chloride 101 (98-107) mmol/L Carbon Dioxide 20 L (22-29) mmol/L Anion Gap 18.0 (5-19) BUN 25 H (8-23) mg/dL Creatinine 1.5 H (0.7-1.2) mg/dL GFR Calculation Not Reportable Glucose 224 H (65-115) mg/dL Calculated Osmolal ity 284 L (285-295) mOsm/k g Lactic Acid 1.8 (0.5-2.2) mmol/L Calcium 9.8 (8.5-10.5) mg/dL Magnesium 1.3 L (1.7-2.3) mg/dL Total Bilirubin 1.1 (0.15-1.2) mg/dL AST 19 (0-40) U/L ALT 18 (0-41) U/L Alkaline Phosphata se 83 (40-130) IU/L Troponin T Baselin e (0-15) ng/L Troponin T 120 Min re[place]sparks (0-15) ng/L Delta Troponin T (0-10) ABS# Troponin T Hi Sens 6Hr (0-15) ng/L Troponin T Hi Sens 6Hr Delta (0-12) ng/L Total Protein 6.2 L (6.6-8.7) g/dL Albumin 3.9 (3.5-5.2) g/dL Globulin 2.3 (1.3-4.6) g/dL Urine Color (Yellow) Urine Appearance (CLEAR) Urine pH (5-7) Ur Specific Gravit y (1.005-1.030) Urine Protein (Negative) Urine Glucose (UA) (Normal) Urine Ketones (Negative) Urine Blood (Negative) Urine Nitrate (Negative) Urine Bilirubin (NEGATIVE) Urine Urobilinogen (Negative) mg/dL Ur Leukocyte Kalee ase (Negative) Urine RBC (0-2) /hpf Urine WBC (0-5) /hpf Ur Squamous Epith Cells (0-5) Amorphous Sediment Urine Bacteria (NONE) Digoxin (0.6-1.2) ng/mL Ethyl Alcohol < 10 (0-10) mg/dL 01/17/20 01/17/20 01/17/20 Range/Units 19:30 19:30 19:35 WBC (4.0-10.0) 10^3/ uL RBC (4.1-5.3) 10^6/u L Hgb (11.7-16.6) g/dL Hct (42.0-52.0) % MCV (80-94) fL MCH (28.0-34.0) pg MCHC (30.0-36.0) g/dL RDW (12.1-15.1) % Plt Count (130-400) 10^3/c mm MPV (7.4-10.4) fL Neut % (Auto) % Lymph % (Auto) % [place] % (Auto) % Eos % (Auto) % Baso % (Auto) % Neut # (Auto) (1.8-7.7) 10^3/u L Lymph # (Auto) (0.8-4.8) 10^3/u L [place] # (Auto) (0.2-0.9) 10^3/u L Eos # (Auto) (0.0-0.8) 10^3/u L Baso # (Auto) (0.0-0.1) 10^3/u L Nucleated RBC % (a uto) % Nucleated RBCs # /100WBC PT 28.40 H (10.5-13.3) SECO NDS INR 2.55 H (0.8-1.2) Specimen Type Arterial Sample Site Radial, left ABG pH 7.48 H (7.35-7.45) ABG pCO2 29.2 L (35-45) mmHg ABG pO2 54.0 L (80.0-100.0) mmH g ABG HCO3 21.5 L (22-26) mmol/L ABG Base Excess -1.0 (-2.0-2.0) mmol/ L Kiran Test Pos Hematocrit 42.3 (42-52) % Hunting And Fishing Guide ID ellpe Sodium (136-145) mmol/L Potassium (3.5-5.1) mmol/L Chloride (98-107) mmol/L Carbon Dioxide (22-29) mmol/L Anion Gap (5-19) BUN (8-23) mg/dL Creatinine (0.7-1.2) mg/dL GFR Calculation Glucose (65-115) mg/dL Calculated Osmolal ity (285-295) mOsm/k g Lactic Acid (0.5-2.2) mmol/L Calcium (8.5-10.5) mg/dL Magnesium (1.7-2.3) mg/dL Total Bilirubin (0.15-1.2) mg/dL AST (0-40) U/L ALT (0-41) U/L Alkaline Phosphata se (40-130) IU/L Troponin T Baselin e 56 H (0-15) ng/L Troponin T 120 Min reno-sparks (0-15) ng/L Delta Troponin T (0-10) ABS# Troponin T Hi Sens 6Hr (0-15) ng/L Troponin T Hi Sens 6Hr Delta (0-12) ng/L Total Protein (6.6-8.7) g/dL Albumin (3.5-5.2) g/dL Globulin (1.3-4.6) g/dL Urine Color (Yellow) Urine Appearance (CLEAR) Urine pH (5-7) Ur Specific Gravit y (1.005-1.030) Urine Protein (Negative) Urine Glucose (UA) (Normal) Urine Ketones (Negative) Urine Blood (Negative) Urine Nitrate (Negative) Urine Bilirubin (NEGATIVE) Urine Urobilinogen (Negative) mg/dL Ur Leukocyte Kalee ase (Negative) Urine RBC (0-2) /hpf Urine WBC (0-5) /hpf Ur Squamous Epith Cells (0-5) Amorphous Sediment Urine Bacteria (NONE) Digoxin (0.6-1.2) ng/mL Ethyl Alcohol (0-10) mg/dL 01/17/20 01/17/20 01/17/20 Range/Units 21:04 21:04 21:13 WBC (4.0-10.0) 10^3/ uL RBC (4.1-5.3) 10^6/u L Hgb (11.7-16.6) g/dL Hct (42.0-52.0) % MCV (80-94) fL MCH (28.0-34.0) pg MCHC (30.0-36.0) g/dL RDW (12.1-15.1) % Plt Count (130-400) 10^3/c mm MPV (7.4-10.4) fL Neut % (Auto) % Lymph % (Auto) % [place] % (Auto) % Eos % (Auto) % Baso % (Auto) % Neut # (Auto) (1.8-7.7) 10^3/u L Lymph # (Auto) (0.8-4.8) 10^3/u L [place] # (Auto) (0.2-0.9) 10^3/u L Eos # (Auto) (0.0-0.8) 10^3/u L Baso # (Auto) (0.0-0.1) 10^3/u L Nucleated RBC % (a uto) % Nucleated RBCs # /100WBC PT (10.5-13.3) SECO NDS INR (0.8-1.2) Specimen Type Sample Site ABG pH (7.35-7.45) ABG pCO2 (35-45) mmHg ABG pO2 (80.0-100.0) mmH g ABG HCO3 (22-26) mmol/L ABG Base Excess (-2.0-2.0) mmol/ L Kiran Test Hematocrit (42-52) % Hunting [employer] Fishing Guide ID Sodium (136-145) mmol/L Potassium (3.5-5.1) mmol/L Chloride (98-107) mmol/L Carbon Dioxide (22-29) mmol/L Anion Gap (5-19) BUN (8-23) mg/dL Creatinine (0.7-1.2) mg/dL GFR Calculation Glucose (65-115) mg/dL Calculated Osmolal ity (285-295) mOsm/k g Lactic Acid (0.5-2.2) mmol/L Calcium (8.5-10.5) mg/dL Magnesium (1.7-2.3) mg/dL Total Bilirubin (0.15-1.2) mg/dL AST (0-40) U/L ALT (0-41) U/L Alkaline Phosphata se (40-130) IU/L Troponin T Baselin e (0-15) ng/L Troponin T 120 Min [place] 73.92 H (0-15) ng/L Delta Troponin T 17.92 H* (0-10) ABS# Troponin T Hi Sens 6Hr (0-15) ng/L Troponin T Hi Sens 6Hr Delta (0-12) ng/L Total Protein (6.6-8.7) g/dL Albumin (3.5-5.2) g/dL Globulin (1.3-4.6) g/dL Urine Color Katie (Yellow) Urine Appearance Cloudy (CLEAR) Urine pH 5 (5-7) Ur Specific Gravit y 1.015 (1.005-1.030) Urine Protein 3+ H (Negative) Urine Glucose (UA) Trace H (Normal) Urine Ketones 1+ H (Negative) Urine Blood 3+ H (Negative) Urine Nitrate Negative (Negative) Urine Bilirubin Neg (NEGATIVE) Urine Urobilinogen Norm (Negative) mg/dL Ur Leukocyte Kalee ase Negative (Negative) Urine RBC Too numerous to c nt H (0-2) /hpf Urine WBC Too numerous to c nt H (0-5) /hpf Ur Squamous Epith Cells 5-10 H (0-5) Amorphous Sediment Not Reportable Urine Bacteria 2+ H (NONE) Digoxin 0.9 (0.6-1.2) ng/mL Ethyl Alcohol (0-10) mg/dL 01/18/20 Range/Units 01:38 WBC (4.0-10.0) 10^3/ uL RBC (4.1-5.3) 10^6/u L Hgb (11.7-16.6) g/dL Hct (42.0-52.0) % MCV (80-94) fL MCH (28.0-34.0) pg MCHC (30.0-36.0) g/dL RDW (12.1-15.1) % Plt Count (130-400) 10^3/c mm MPV (7.4-10.4) fL Neut % (Auto) % Lymph % (Auto) % [place] % (Auto) % Eos % (Auto) % Baso % (Auto) % Neut # (Auto) (1.8-7.7) 10^3/u L Lymph # (Auto) (0.8-4.8) 10^3/u L [place] # (Auto) (0.2-0.9) 10^3/u L Eos # (Auto) (0.0-0.8) 10^3/u L Baso # (Auto) (0.0-0.1) 10^3/u L Nucleated RBC % (a uto) % Nucleated RBCs # /100WBC PT (10.5-13.3) SECO NDS INR (0.8-1.2) Specimen Type Sample Site ABG pH (7.35-7.45) ABG pCO2 (35-45) mmHg ABG pO2 (80.0-100.0) mmH g ABG HCO3 (22-26) mmol/L ABG Base Excess (-2.0-2.0) mmol/ L Kiran Test Hematocrit (42-52) % Hunting And Fishing Guide ID Sodium (136-145) mmol/L Potassium (3.5-5.1) mmol/L Chloride (98-107) mmol/L Carbon Dioxide (22-29) mmol/L Anion Gap (5-19) BUN (8-23) mg/dL Creatinine (0.7-1.2) mg/dL GFR Calculation Glucose (65-115) mg/dL Calculated Osmolal ity (285-295) mOsm/k g Lactic Acid (0.5-2.2) mmol/L Calcium (8.5-10.5) mg/dL Magnesium (1.7-2.3) mg/dL Total Bilirubin (0.15-1.2) mg/dL AST (0-40) U/L ALT (0-41) U/L Alkaline Phosphata se (40-130) IU/L Troponin T Baselin e (0-15) ng/L Troponin T 120 Min [place] (0-15) ng/L Delta Troponin T (0-10) ABS# Troponin T Hi Sens 6Hr 71.00 H (0-15) ng/L Troponin T Hi Sens 6Hr Delta 15.00 H* (0-12) ng/L Total Protein (6.6-8.7) g/dL Albumin (3.5-5.2) g/dL Globulin (1.3-4.6) g/dL Urine Color (Yellow) Urine Appearance (CLEAR) Urine pH (5-7) Ur Specific Gravit y (1.005-1.030) Urine Protein (Negative) Urine Glucose (UA) (Normal) Urine Ketones (Negative) Urine Blood (Negative) Urine Nitrate (Negative) Urine Bilirubin (NEGATIVE) Urine Urobilinogen (Negative) mg/dL Ur Leukocyte Kalee ase (Negative) Urine RBC (0-2) /hpf Urine WBC (0-5) /hpf Ur Squamous Epith Cells (0-5) Amorphous Sediment Urine Bacteria (NONE) Digoxin (0.6-1.2) ng/mL Ethyl Alcohol (0-10) mg/dL Discharge Plan Discharge Patient Disposition: Xfer Short-Term Hosp Clinical Impression: Hx of kidney transplant, Acute pyelonephritis Sepsis Qualifiers: Sepsis type: sepsis due to unspecified organism Sepsis acute organ dysfunction status: without acute organ dysfunction Qualified Code(s): A41.9 - Sepsis, unspecified organism Altered mental status Qualifiers: Altered mental status type: coma Coma depth: Cameron coma 13-15 Coma timing: at arrival to emergency department Qualified Code(s): R40.2412 - Cameron coma scale score 13-15, at arrival to emergency department Condition: Stable Referrals: Mercy Priest MD [Primary Care Provider] - Sign Out Sign Out Data: Patient Sign Out occurred on 01/18/20 at 06:21. Patient's care was discussed, and care was transferred from to Heath Saavedra DO. 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 Myocardial infarction Pain management contract signed Paroxysmal atrial fibrillation Sleep apnea SVT (supraventricular tachycardia) Warfarin anticoagulation Surgical History Hx of amputation below knee Hx of CABG Hx of kidney transplant Family History Other CAD (coronary artery disease) Cancer Diabetes Hypertension Social History Smoking and tobacco status: former smoker Alcohol intake: former History of recent travel: No Course Vital Signs: Vital signs: Vital Signs Temperature 98.0 F 01/18/20 04:54 Pulse Rate 89 01/18/20 08:56 Respiratory Rate 20 H 01/18/20 08:56 Blood Pressure 119/68 01/18/20 08:56 Pulse Oximetry 92 01/18/20 08:56 MDM - Altered Mental Status MDM Narrative: Medical decision making narrative: Care assumed a change of shift the patient is stable. Discussed with [facility] transfer they would like to go ahead and transfer me to your at this point are still waiting to establish bed. Reviewed the case with the ER doctor they will accept on transfer ER to ER on effect admission from their emergency room. Patient remained stable at this time Lab Data: Labs: Lab Results 01/17/20 01/17/20 01/17/20 Range/Units 19:30 19:30 19:30 WBC 5.9 (4.0-10.0) 10^3/ uL RBC 4.74 (4.1-5.3) 10^6/u L Hgb 13.4 (11.7-16.6) g/dL Hct 42.1 (42.0-52.0) % MCV 88.8 (80-94) fL MCH 28.3 (28.0-34.0) pg MCHC 31.8 (30.0-36.0) g/dL RDW 14.2 (12.1-15.1) % Plt Count 116 L (130-400) 10^3/c mm MPV 10.8 H (7.4-10.4) fL Neut % (Auto) 92.8 % Lymph % (Auto) 3.9 % [place] % (Auto) 2.2 % Eos % (Auto) 0.2 % Baso % (Auto) 0.2 % Neut # (Auto) 5.47 (1.8-7.7) 10^3/u L Lymph # (Auto) 0.2 L (0.8-4.8) 10^3/u L [place] # (Auto) 0.1 L (0.2-0.9) 10^3/u L Eos # (Auto) 0.0 (0.0-0.8) 10^3/u L Baso # (Auto) 0.0 (0.0-0.1) 10^3/u L Nucleated RBC % (a uto) 0 % Nucleated RBCs # 0.0 /100WBC PT (10.5-13.3) SECO NDS INR (0.8-1.2) Specimen Type Sample Site ABG pH (7.35-7.45) ABG pCO2 (35-45) mmHg ABG pO2 (80.0-100.0) mmH g ABG HCO3 (22-26) mmol/L ABG Base Excess (-2.0-2.0) mmol/ L Kiran Test Hematocrit (42-52) % Hunting And Fishing Guide ID Sodium 135 L (136-145) mmol/L Potassium 4.0 (3.5-5.1) mmol/L Chloride 101 (98-107) mmol/L Carbon Dioxide 20 L (22-29) mmol/L Anion Gap 18.0 (5-19) BUN 25 H (8-23) mg/dL Creatinine 1.5 H (0.7-1.2) mg/dL GFR Calculation Not Reportable Glucose 224 H (65-115) mg/dL Calculated Osmolal ity 284 L (285-295) mOsm/k g Lactic Acid 1.8 (0.5-2.2) mmol/L Calcium 9.8 (8.5-10.5) mg/dL Magnesium 1.3 L (1.7-2.3) mg/dL Total Bilirubin 1.1 (0.15-1.2) mg/dL AST 19 (0-40) U/L ALT 18 (0-41) U/L Alkaline Phosphata se 83 (40-130) IU/L Troponin T Baselin e (0-15) ng/L Troponin T 120 Min [place] (0-15) ng/L Delta Troponin T (0-10) ABS# Troponin T Hi Sens 6Hr (0-15) ng/L Troponin T Hi Sens 6Hr Delta (0-12) ng/L Total Protein 6.2 L (6.6-8.7) g/dL Albumin 3.9 (3.5-5.2) g/dL Globulin 2.3 (1.3-4.6) g/dL Urine Color (Yellow) Urine Appearance (CLEAR) Urine pH (5-7) Ur Specific Gravit y (1.005-1.030) Urine Protein (Negative) Urine Glucose (UA) (Normal) Urine Ketones (Negative) Urine Blood (Negative) Urine Nitrate (Negative) Urine Bilirubin (NEGATIVE) Urine Urobilinogen (Negative) mg/dL Ur Leukocyte Kalee ase (Negative) Urine RBC (0-2) /hpf Urine WBC (0-5) /hpf Ur Squamous Epith Cells (0-5) Amorphous Sediment Urine Bacteria (NONE) Digoxin (0.6-1.2) ng/mL Ethyl Alcohol < 10 (0-10) mg/dL 07/27/20 07/27/20 07/27/20 Range/Units 19:30 19:30 19:35 WBC (4.0-10.0) 10^3/ uL RBC (4.1-5.3) 10^6/u L Hgb (11.7-16.6) g/dL Hct (42.0-52.0) % MCV (80-94) fL MCH (28.0-34.0) pg MCHC (30.0-36.0) g/dL RDW (12.1-15.1) % Plt Count (130-400) 10^3/c mm MPV (7.4-10.4) fL Neut % (Auto) % Lymph % (Auto) % [place] % (Auto) % Eos % (Auto) % Baso % (Auto) % Neut # (Auto) (1.8-7.7) 10^3/u L Lymph # (Auto) (0.8-4.8) 10^3/u L [place] # (Auto) (0.2-0.9) 10^3/u L Eos # (Auto) (0.0-0.8) 10^3/u L Baso # (Auto) (0.0-0.1) 10^3/u L Nucleated RBC % (a uto) % Nucleated RBCs # /100WBC PT 28.40 H (10.5-13.3) SECO NDS INR 2.55 H (0.8-1.2) Specimen Type Arterial Sample Site Radial, left ABG pH 7.48 H (7.35-7.45) ABG pCO2 29.2 L (35-45) mmHg ABG pO2 54.0 L (80.0-100.0) mmH g ABG HCO3 21.5 L (22-26) mmol/L ABG Base Excess -1.0 (-2.0-2.0) mmol/ L Kiran Test Pos Hematocrit 42.3 (42-52) % Hunting And Fishing Guide ID ellpe Sodium (136-145) mmol/L Potassium (3.5-5.1) mmol/L Chloride (98-107) mmol/L Carbon Dioxide (22-29) mmol/L Anion Gap (5-19) BUN (8-23) mg/dL Creatinine (0.7-1.2) mg/dL GFR Calculation Glucose (65-115) mg/dL Calculated Osmolal ity (285-295) mOsm/k g Lactic Acid (0.5-2.2) mmol/L Calcium (8.5-10.5) mg/dL Magnesium (1.7-2.3) mg/dL Total Bilirubin (0.15-1.2) mg/dL AST (0-40) U/L ALT (0-41) U/L Alkaline Phosphata se (40-130) IU/L Troponin T Baselin e 56 H (0-15) ng/L Troponin T 120 Min re[place]-sparks (0-15) ng/L Delta Troponin T (0-10) ABS# Troponin T Hi Sens 6Hr (0-15) ng/L Troponin T Hi Sens 6Hr Delta (0-12) ng/L Total Protein (6.6-8.7) g/dL Albumin (3.5-5.2) g/dL Globulin (1.3-4.6) g/dL Urine Color (Yellow) Urine Appearance (CLEAR) Urine pH (5-7) Ur Specific Gravit y (1.005-1.030) Urine Protein (Negative) Urine Glucose (UA) (Normal) Urine Ketones (Negative) Urine Blood (Negative) Urine Nitrate (Negative) Urine Bilirubin (NEGATIVE) Urine Urobilinogen (Negative) mg/dL Ur Leukocyte Kalee ase (Negative) Urine RBC (0-2) /hpf Urine WBC (0-5) /hpf Ur Squamous Epith Cells (0-5) Amorphous Sediment Urine Bacteria (NONE) Digoxin (0.6-1.2) ng/mL Ethyl Alcohol (0-10) mg/dL 01/17/20 01/17/20 01/17/20 Range/Units 21:04 21:04 21:13 WBC (4.0-10.0) 10^3/ uL RBC (4.1-5.3) 10^6/u L Hgb (11.7-16.6) g/dL Hct (42.0-52.0) % MCV (80-94) fL MCH (28.0-34.0) pg MCHC (30.0-36.0) g/dL RDW (12.1-15.1) % Plt Count (130-400) 10^3/c mm MPV (7.4-10.4) fL Neut % (Auto) % Lymph % (Auto) % [place] % (Auto) % Eos % (Auto) % Baso % (Auto) % Neut # (Auto) (1.8-7.7) 10^3/u L Lymph # (Auto) (0.8-4.8) 10^3/u L [place] # (Auto) (0.2-0.9) 10^3/u L Eos # (Auto) (0.0-0.8) 10^3/u L Baso # (Auto) (0.0-0.1) 10^3/u L Nucleated RBC % (a uto) % Nucleated RBCs # /100WBC PT (10.5-13.3) SECO NDS INR (0.8-1.2) Specimen Type Sample Site ABG pH (7.35-7.45) ABG pCO2 (35-45) mmHg ABG pO2 (80.0-100.0) mmH g ABG HCO3 (22-26) mmol/L ABG Base Excess (-2.0-2.0) mmol/ L Kiran Test Hematocrit (42-52) % Hunting And Fishing Guide ID Sodium (136-145) mmol/L Potassium (3.5-5.1) mmol/L Chloride (98-107) mmol/L Carbon Dioxide (22-29) mmol/L Anion Gap (5-19) BUN (8-23) mg/dL Creatinine (0.7-1.2) mg/dL GFR Calculation Glucose (65-115) mg/dL Calculated Osmolal ity (285-295) mOsm/k g Lactic Acid (0.5-2.2) mmol/L Calcium (8.5-10.5) mg/dL Magnesium (1.7-2.3) mg/dL Total Bilirubin (0.15-1.2) mg/dL AST (0-40) U/L ALT (0-41) U/L Alkaline Phosphata se (40-130) IU/L Troponin T Baselin e (0-15) ng/L Troponin T 120 Min re[place]sparks 73.92 H (0-15) ng/L Delta Troponin T 17.92 H* (0-10) ABS# Troponin T Hi Sens 6Hr (0-15) ng/L Troponin T Hi Sens 6Hr Delta (0-12) ng/L Total Protein (6.6-8.7) g/dL Albumin (3.5-5.2) g/dL Globulin (1.3-4.6) g/dL Urine Color Katie (Yellow) Urine Appearance Cloudy (CLEAR) Urine pH 5 (5-7) Ur Specific Gravit y 1.015 (1.005-1.030) Urine Protein 3+ H (Negative) Urine Glucose (UA) Trace H (Normal) Urine Ketones 1+ H (Negative) Urine Blood 3+ H (Negative) Urine Nitrate Negative (Negative) Urine Bilirubin Neg (NEGATIVE) Urine Urobilinogen Norm (Negative) mg/dL Ur Leukocyte Kalee ase Negative (Negative) Urine RBC Too numerous to c nt H (0-2) /hpf Urine WBC Too numerous to c nt H (0-5) /hpf Ur Squamous Epith Cells 5-10 H (0-5) Amorphous Sediment Not Reportable Urine Bacteria 2+ H (NONE) Digoxin 0.9 (0.6-1.2) ng/mL Ethyl Alcohol (0-10) mg/dL 01/17/ Range/Units 01:38 WBC (4.0-10.0) 10^3/ uL RBC (4.1-5.3) 10^6/u L Hgb (11.7-16.6) g/dL Hct (42.0-52.0) % MCV (80-94) fL MCH (28.0-34.0) pg MCHC (30.0-36.0) g/dL RDW (12.1-15.1) % Plt Count (130-400) 10^3/c mm MPV (7.4-10.4) fL Neut % (Auto) % Lymph % (Auto) % [place] % (Auto) % Eos % (Auto) % Baso % (Auto) % Neut # (Auto) (1.8-7.7) 10^3/u L Lymph # (Auto) (0.8-4.8) 10^3/u L [place] # (Auto) (0.2-0.9) 10^3/u L Eos # (Auto) (0.0-0.8) 10^3/u L Baso # (Auto) (0.0-0.1) 10^3/u L Nucleated RBC % (a uto) % Nucleated RBCs # /100WBC PT (10.5-13.3) SECO NDS INR (0.8-1.2) Specimen Type Sample Site ABG pH (7.35-7.45) ABG pCO2 (35-45) mmHg ABG pO2 (80.0-100.0) mmH g ABG HCO3 (22-26) mmol/L ABG Base Excess (-2.0-2.0) mmol/ L Kiran Test Hematocrit (42-52) % Hunting And Fishing Guide ID Sodium (136-145) mmol/L Potassium (3.5-5.1) mmol/L Chloride (98-107) mmol/L Carbon Dioxide (22-29) mmol/L Anion Gap (5-19) BUN (8-23) mg/dL Creatinine (0.7-1.2) mg/dL GFR Calculation Glucose (65-115) mg/dL Calculated Osmolal ity (285-295) mOsm/k g Lactic Acid (0.5-2.2) mmol/L Calcium (8.5-10.5) mg/dL Magnesium (1.7-2.3) mg/dL Total Bilirubin (0.15-1.2) mg/dL AST (0-40) U/L ALT (0-41) U/L Alkaline Phosphata se (40-130) IU/L Troponin T Baselin e (0-15) ng/L Troponin T 120 Min [place] (0-15) ng/L Delta Troponin T (0-10) ABS# Troponin T Hi Sens 6Hr 71.00 H (0-15) ng/L Troponin T Hi Sens 6Hr Delta 15.00 H* (0-12) ng/L Total Protein (6.6-8.7) g/dL Albumin (3.5-5.2) g/dL Globulin (1.3-4.6) g/dL Urine Color (Yellow) Urine Appearance (CLEAR) Urine pH (5-7) Ur Specific Gravit y (1.005-1.030) Urine Protein (Negative) Urine Glucose (UA) (Normal) Urine Ketones (Negative) Urine Blood (Negative) Urine Nitrate (Negative) Urine Bilirubin (NEGATIVE) Urine Urobilinogen (Negative) mg/dL Ur Leukocyte Kalee ase (Negative) Urine RBC (0-2) /hpf Urine WBC (0-5) /hpf Ur Squamous Epith Cells (0-5) Amorphous Sediment Urine Bacteria (NONE) Digoxin (0.6-1.2) ng/mL Ethyl Alcohol (0-10) mg/dL Discharge Plan Discharge Patient Disposition: Xfer Short-Term Hosp Clinical Impression: Hx of kidney transplant, Acute pyelonephritis Sepsis Qualifiers: Sepsis type: sepsis due to unspecified organism Sepsis acute organ dysfunction status: without acute organ dysfunction Qualified Code(s): A41.9 - Sepsis, unspecified organism Altered mental status Qualifiers: Altered mental status type: coma Coma depth: Cameron coma 13-15 Coma timing: at arrival to emergency department Qualified Code(s): R40.2412 - Cameron coma scale score 13-15, at arrival to emergency department Condition: Stable Referrals: Mercy Priest MD [Primary Care Provider] - Sign Out Sign Out Data: Patient Sign Out occurred on 01/18/20 at 06:21. Patient's care was discussed, and care was transferred from to Heath Saavedra DO. Coding Level of Care Code ED Real Time Analyst for Chg Fwd Exam Comprehensive
[2020-01-17 21:03] LABS: INR 2.55 (0.8-1.2)
--- NOTE | 2020-01-17 21:10 | CTR_ITS ---
PROCEDURE INFORMATION: Exam: CT Head Without Contrast Exam date and time: 01/17/2020 9:12 PM Age: 74 years old Clinical indication: Altered mental status/memory loss; Additional info: AMS TECHNIQUE: Imaging protocol: Computed tomography of the head without contrast. Radiation optimization: All CT scans at this facility use at least one of these dose optimization techniques: automated exposure control; mA and/or kV adjustment per patient size (includes targeted exams where dose is matched to clinical indication); or iterative reconstruction. COMPARISON: No relevant prior studies available. RADIATION DOSE METRICS: Total DLP (mGy-cm): 859.21 FINDINGS: Brain: There is volume loss and periventricular low density compatible with chronic small vessel disease changes. There is no acute hemorrhage, edema or mass effect. Ventricles: Normal. No ventriculomegaly. Bones/joints: Unremarkable. No acute fracture. Sinuses: There is mild mucosal thickening in the sinuses. No air-fluid levels. Mastoid air cells: There is trace opacification of the right mastoid air cells. The left mastoid air cells are clear. Soft tissues: Unremarkable. CT/CT head wo con* [id number] IMPRESSION: 1. No acute intracranial abnormality. 2. Trace opacification of the right mastoid air cells. Radiation Dose CTDIVOL = (mGy): DLP = 859.21 (mGy-cm)
--- NOTE | 2020-01-17 21:18 | ECG_ITS ---
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 Measurements Intervals [place] Rate: 93 P: NE: -1 QRS: 7 QRSD: 148 T: 60 QT: 307 QTc: 383 Interpretive Statements ATRIAL FIBRILLATION RIGHT BUNDLE BRANCH BLOCK [120+ ms QRS DURATION, UPRIGHT V1, 40+ ms S IN I/aVL/V4/V5/V6] INTERPRETATION BASED ON A DEFAULT AGE OF 40 YEARS Compared to ECG 01/17/2020 20:00:43 No significant changes Electronically Signed On 01-18-2020 20:44:29 CDT by Angel Elliott M.D. [id number]
[2020-01-17 21:43] LABS: Digoxin 0.9 ng/mL (0.6-1.2)
[2020-01-17 21:44] LABS: Troponin 5 2HR 73.92 ng/L (0-15)
[2020-01-17 22:03] VITALS: BP 125/62; PULSE 94; RESP 18; O2SAT 91
[2020-01-17 22:05] LABS: Troponin 5 2HR Delta 17.92 ABS# (0-10)
[2020-01-17 22:43] LABS: Glucose Urine UA Trace (Normal); Protein Urine 3+ (Negative); Specific Gravity, Urine 1.015 (1.005-1.030); Urine Appearance Cloudy (CLEAR); Urine Color Amber (Yellow); pH Urine 5 (5-7)
[2020-01-17 22:44] LABS: Add Urine Culture? Yes; Bacteria Urine 2+; Bilirubin Urine Neg (NEGATIVE); Blood Urine 3+ (Negative); Ketones Urine 1+ (Negative); Leukocyte Esterase Urine Negative (Negative); Nitrate Urine Negative (Negative); RBC Urine TOO NUMEROUS TO CNT /hpf (0-2); Urobilinogen Urine Norm (Negative); WBC Urine TOO NUMEROUS TO CNT /hpf (0-5)
[2020-01-17] MEDS: piperacillin-tazobactam 3.375 GM in sodium chloride 0.9% (plus) 50 ML IV (22:45)
[2020-01-17] MEDS: magnesium sulfate premix 2 GM/50 ML PIGGYBACK IV (23:05)
[2020-01-17 23:52] VITALS: BP 131/72; PULSE 102; RESP 24; TEMP 37; O2SAT 98
[2020-01-18] VITALS (13 sets, daily range): BP systolic 106–145; BP diastolic 58–93; PULSE 84–112; RESP 18–28; TEMP 36.7; O2SAT 92–98
[2020-01-18] MEDS: cefTRIAXone 1,000 MG in sodium chloride 0.9% (plus) 50 ML 100 MG IV (01:03)
[2020-01-18] MEDS: lactated ringers 1,000 ML 150 ML IV ×2 (01:04→07:55)
--- NOTE | 2020-01-18 01:18 | ECG_ITS ---
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 Measurements Intervals [place] Rate: 88 P: [place]: -1 QRS: 14 QRSD: 154 T: 0 QT: 323 QTc: 391 Interpretive Statements ATRIAL FIBRILLATION RIGHT BUNDLE BRANCH BLOCK [120+ ms QRS DURATION, UPRIGHT V1, 40+ ms S IN I/aVL/V4/V5/V6] Compared to ECG 01/17/2020 23:40:34 No significant changes Electronically Signed On 01-18-2020 20:45:31 CDT by Angel Elliott M.D. [id number]
--- NOTE | 2020-01-18 02:39 | PC.NURSE ---
Pt with sore tailbone and arthritis in back. Moved to inpatient bed for comfort. Pt states pain is now resolved. Current BG on monitor 127. Denies return of chest pain at this time.
--- NOTE | 2020-01-18 04:45 | PC.NURSE ---
Pt with return of chest pain, 01/30. MD Chaves aware
[2020-01-18] MEDS: morphine 4 mg/mL SDV 1 mL IVP (04:56)
--- NOTE | 2020-01-18 06:59 | PC.NURSE ---
Report received a this time from IRVIN Wheat.
--- NOTE | 2020-01-18 09:05 | PC.NURSE ---
Per Dr. Saavedra patient can take home medication. gave patient oral medications that physician was okay with. The following list of medications is what the patient took at this time: aspirin, carvedilol, vitamin D3, magnesium oxide, and warfarin.
[2020-01-18 09:48] LABS: Blood Gas CCRB Time 1915
[2020-01-18] MEDS: digoxin 125 mcg Tablet PO (09:48)
== END 2020-01-18 10:55 | disposition short-term general hospital (02) ==
PROVIDERS: Emergency Medicine; Emergency Provider Family Medicine; PCP Family Medicine
DX: A41.9 Sepsis, unspecified organism (principal); N10 Acute pyelonephritis; R40.2412 Glasgow coma scale score 13-15, at arrival to emergency department; Z94.0 Kidney transplant status; E11.22 Type 2 diabetes mellitus with diabetic chronic kidney disease; I12.0 Hypertensive chronic kidney disease with stage 5 chronic kidney disease or end stage renal disease; N18.6 End stage renal disease; E78.5 Hyperlipidemia, unspecified; I25.2 Old myocardial infarction; I48.0 Paroxysmal atrial fibrillation; Z89.519 Acquired absence of unspecified leg below knee; Z95.1 Presence of aortocoronary bypass graft; Z87.891 Personal history of nicotine dependence; N30.01 Acute cystitis with hematuria; Z79.01 Long term (current) use of anticoagulants; Z79.82 Long term (current) use of aspirin; Z79.4 Long term (current) use of insulin
CPT/HCPCS: 12345; 36415; 36600; 70450; 71045; 74176; 80053; 80162; 80307; 81001; 82803; 83605; 83735; 84484; 85025; 85610; 85730; 87040; 87077; 87086; 87186; 93005; 96360; 96361; 96365; 96366; 96367; 96368; 96375; 99283; 99284; 99285; J0696; J2270; J2405; J2543; J3475; J7030

== ENCOUNTER 2020-02-15 09:35 | Emergency (ER) | payer MEDICARE, OTHER, SELFPAY ==
[2020-02-15 09:52] VITALS: BP 139/69; PULSE 55; RESP 18; TEMP 36.6; O2SAT 94; BMI 29.5
--- NOTE | 2020-02-15 10:17 | W.ED.UPPEXIN ---
HPI - Extremity Injury (Upper) General: Chief Complaint: Extremity Injury, Upper Stated Complaint: SEVER PAIN IN ARM, LEFT Time Seen by Provider: 02/15/20 09:56 Source: patient and family Mode of arrival: ambulatory Limitations: no limitations History of Present Illness: HPI narrative: Patient is a 74-year-old male who presents to ED today with complaint of left arm pain/injury. Patient tells me a few days ago he was carrying heavy loads when his lower extremity prosthesis gave out causing him to fall onto the left elbow. Patient tells me he was able to use the extremity fairly normally over the past 2 days however beginning yesterday pain and swelling have increased to the point where he feels he can no longer move it. No other injuries sustained during fall. MD complaint: injury to: left and elbow Onset (ago): day(s) Other Extremity Injury: Left: elbow Other injuries: none Place: home Severity: moderate Relieving factors: immobilization Exacerbating factors: movement of extremity Context: fall and direct blow Associated symptoms: Reports no associated symptoms; Denies weakness in extremities Review of Systems Musc: Reports: joint pain (L elbow), joint swelling (L elbow) and limited range of motion; Denies: joint redness or joint warmth Neuro: Denies: numbness in extremities, weakness in extremities or sensory changes PFS ED PFSH: Medical History (Updated 02/15/20 @ 11:[address]) Aortic root enlargement Diabetes Dyslipidemia End stage renal disease Essential hypertension half-way (current) use of opiate analgesic Myocardial infarction Pain management contract signed Paroxysmal atrial fibrillation Sleep apnea SVT (supraventricular tachycardia) Warfarin anticoagulation Surgical History Hx of amputation below knee Hx of CABG Hx of kidney transplant Family History Other CAD (coronary artery disease) Cancer Diabetes Hypertension Social History Smoking and tobacco status: former smoker Alcohol intake: former History of recent travel: No Physical Exam Const: COMMON NORMALS: no acute distress, patient oriented x3, no limitations and alert Extremity: GENERAL: Yes normal exam except as noted LEFT UPPER EXTREMITY: Yes elbow joint (swelling/TTP noted; elbow held in slight flexion) Left elbow: Yes inspection (effusion noted), Yes ROM (cannot fully extend or flex elbow; has only about 20-30 degrees of movement) and Yes neurovascular exam (normal) Neuro: COMMON NORMALS: patient oriented x3 and no sensory deficits noted SENSORIUM/ORIENTATION: Yes alert Skin: COMMON NORMALS: no rashes or lesions noted GENERAL SKIN EXAM: no rashes or lesions noted Course Vital Signs: Vital signs: Vital Signs Temperature 97.8 F 02/15/20 09:52 Pulse Rate 55 L 02/15/20 09:52 Respiratory Rate 18 02/15/20 09:52 Blood Pressure 139/69 02/15/20 09:52 Pulse Oximetry 94 02/15/20 09:52 MDM - Extremity Injury (Upper) MDM Narrative: Medical decision making narrative: will go ahead and splint and have him followup with orthopedics Imaging Data^: XR L elbow: Radiologist's impression: [place] [address] XRay Report Signed Patient: Jaya Kidd Sr Unit #: [id number] : 1945 Age/Sex: 74 / M ADM Date: 02/15/20 Loc: ER Room/Bed: Attending Dr: Ordering Provider/Ordering MD: Daniella Arevalo Date of Service: 02/15/20 Procedure(s): XR elbow LT min 3V* [id number] Accession Number(s): [id number] Report Number: [id number] PROCEDURE INFORMATION: Exam: XR Left Elbow Exam date and time: 02/15/2020 10:44 AM Age: 74 years old Clinical indication: Pain and injury or trauma; Injury history: Not specified; Initial encounter; Blunt trauma (contusions or hematomas; Elbow; Left; Swelling; Additional info: Pain, swelling, injury TECHNIQUE: Imaging protocol: XR Left elbow. Views: 3 or more views. COMPARISON: No relevant prior studies available. FINDINGS: Bones/joints: There is an elbow joint effusion with elevated fat pad signs. There are osteoarthritic changes across the ulnohumeral and radiocapitellar joints including joint space narrowing, subchondral cystic/sclerotic changes, and marginal osteophyte formations. Soft tissues: There is edema in the soft tissues There are benign-appearing soft tissue calcifications. Vasculature: There are peripheral vascular calcifications. XR/XR elbow LT min 3V* [id number] IMPRESSION: Acute fractures not visualized. However there is an elbow joint effusion raising the possibility of an occult nonvisualized fracture. Dictated By: Linn Quintanilla MD Signed By: Linn Quintanilla MD Signed Date/Time: 02/15/201137 DD/ 1137 Discharge Plan Discharge Patient Disposition: Home Clinical Impression: Effusion of left elbow Occult fracture of left elbow Qualifiers: Encounter type: initial encounter Fracture type: closed Qualified Code(s): S42.402A - Unspecified fracture of lower end of left humerus, initial encounter for closed fracture Condition: Stable Prescriptions: No Action aspirin [Adult Low Dose Aspirin] 81 mg tablet,delayed release (DR/EC) 81 mg PO DAILY RF: 0 tacrolimus 1 mg capsule 1 mg PO Q12H RF: 0 mycophenolate mofetil 250 mg capsule 500 mg PO BID RF: 0 prednisone 5 mg tablet 5 mg PO DAILY RF: 0 carvedilol 12.5 mg tablet 12.5 mg PO Q12H RF: 0 famotidine [Acid [employer] Bagger (famotidine)] 20 mg tablet 20 mg PO DAILY RF: 0 cholecalciferol (vitamin D3) 3,000 unit tablet 3,000 unit PO DAILY RF: 0 magnesium oxide 400 mg magnesium tablet 400 mg PO DAILY RF: 0 cetirizine [All Day Allergy (cetirizine)] 10 mg tablet 5 mg PO DAILY PRN (Reason: allergies) RF: 0 atorvastatin [Lipitor] 20 mg tablet 20 mg PO DAILY RF: 0 digoxin 125 mcg (0.125 mg) tablet 125 mcg PO DAILY 90 Days Qty: 90 RF: 3 warfarin 5 mg tablet 5 mg PO DAILY 90 Days Qty: 90 RF: 3 tamsulosin 0.4 mg capsule 0.4 mg PO DAILY 90 Days Qty: 90 RF: 3 amlodipine 5 mg tablet 5 mg PO DAILY RF: 0 insulin aspart U-100 [Novolog U-100 Insulin aspart] 100 unit/mL solution See Rx Instructions .ROUTE .COMPLEX RF: 0 Discharge Orders: Discharge Order (Routine); Ordered 02/15/20 Ordered By: Daniella Arevalo Referrals: Mercy Priest MD [Primary Care Provider] - Activity Restrictions/Additional Instructions: As discussed, case management should contact you to set you up with your orthopedic followup appointment. Coding Level of Care Code ED Physical Education Professor for Chg Fwd Exam Expanded Problem Focused
--- NOTE | 2020-02-15 11:30 | DCPLANNER ---
manager convention was asked to schedule a follow up appointment for patient with ortho. manager convention called the ortho clinic, spoke with Dawna, gave clinic patients information. manager convention was told that patients information would be printed and reviewed. Clinic will call patient with appointment information.
[2020-02-15 12:35] VITALS: BP 125/75; PULSE 70; RESP 16; O2SAT 98
--- NOTE | 2020-02-15 12:35 | PC.NURSE ---
Adult arm sling applied to left arm
--- NOTE | 2020-02-16 15:21 | PC.NURSE ---
Called and spoke with pain management to inform them of prescription for hydrocodone to assure that patient would not be in violation of pain contract prior to offering patient prescription. Guerita child reports that this would not be considered violation of pain contract for patient.
--- NOTE | 2020-02-18 16:26 | DCPLANNER ---
Patient has a follow up appointment scheduled for Sunday, February 23, 2020 at 11:[address] Quiñones. Clinic will call patient with appointment information.
--- NOTE | 2020-03-21 08:12 | DCPLANNER ---
Patient had a follow up appointment scheduled for 02.23.20 with ortho - patient did attend the appointment.
== END 2020-02-15 12:36 | disposition home or self-care (01) ==
PROVIDERS: Emergency Provider Physician Assistant; PCP Family Medicine
DX: M25.422 Effusion, left elbow (principal); S42.402G Unspecified fracture of lower end of left humerus, subsequent encounter for fracture with delayed healing; W19.XXXD Unspecified fall, subsequent encounter; Z79.01 Long term (current) use of anticoagulants; Z79.82 Long term (current) use of aspirin; Z79.4 Long term (current) use of insulin; E78.5 Hyperlipidemia, unspecified; I12.0 Hypertensive chronic kidney disease with stage 5 chronic kidney disease or end stage renal disease; E11.22 Type 2 diabetes mellitus with diabetic chronic kidney disease; N18.6 End stage renal disease; I25.2 Old myocardial infarction; I48.0 Paroxysmal atrial fibrillation; Z95.1 Presence of aortocoronary bypass graft; Z94.0 Kidney transplant status; Z89.519 Acquired absence of unspecified leg below knee; Z87.891 Personal history of nicotine dependence
CPT/HCPCS: 12345; 29105; 73080; 99283; A4590

== ENCOUNTER → 2020-02-25 11:36 | Outpatient (BNVA) | payer MEDICARE, OTHER, SELFPAY | PROVIDERS: PCP Family Medicine; Visit Provider Urology | DX: R31.0 Gross hematuria (principal) | CPT/HCPCS: 80053; 81001; 88112 ==

== ENCOUNTER → 2020-04-11 08:31 | Outpatient (BNVA) | payer MEDICARE, OTHER, SELFPAY | PROVIDERS: PCP Family Medicine; Visit Provider Family Medicine | DX: Z94.0 Kidney transplant status (principal) | CPT/HCPCS: 80053; 80197; 81000; 82310; 82570; 83735; 83970; 84156; 84550; 85025 ==

== ENCOUNTER → 2020-05-09 11:32 | Outpatient (BNVA) | payer MEDICARE, OTHER, SELFPAY | PROVIDERS: PCP Family Medicine; Visit Provider Family Medicine | DX: Z94.0 Kidney transplant status (principal); I21.9 Acute myocardial infarction, unspecified; Z00.00 Encounter for general adult medical examination without abnormal findings; I48.0 Paroxysmal atrial fibrillation | CPT/HCPCS: 80048; 82310; 83036; 83721; 83970; 84100; 84443; 84460 ==

== ENCOUNTER → 2020-07-17 09:06 | Outpatient (BNVA) | payer MEDICARE, OTHER, SELFPAY | PROVIDERS: PCP Family Medicine; Visit Provider Family Medicine | DX: Z94.0 Kidney transplant status (principal) | CPT/HCPCS: 80053; 80197; 81003; 82310; 82570; 83735; 83970; 84156; 84550; 85025 ==

== ENCOUNTER → 2020-08-16 09:33 | Outpatient (BNVA) | payer MEDICARE, OTHER, SELFPAY | PROVIDERS: PCP Family Medicine; Visit Provider Family Medicine | DX: E11.9 Type 2 diabetes mellitus without complications (principal) | CPT/HCPCS: 80048; 83036; 84460 ==

== ENCOUNTER 2020-09-27 11:03 | Emergency (ER) | payer MEDICARE, OTHER, SELFPAY ==
[2020-09-27] VITALS (11 sets, daily range): BP systolic 161–173; BP diastolic 83–127; PULSE 73–87; RESP 20–22; TEMP 37.1; O2SAT 87–95; BMI 30.1
--- NOTE | 2020-09-27 11:21 | XR_ITS ---
WS: [id number] Portable AP upright chest, 09/27/2020 Clinical Data: covid sx Comparison: Portable chest, 01/17/2020. Findings: Scattered bilateral patchy opacities are noted which are consistent with pneumonia. No nodu les, masses or effusions are seen. The heart is normal. The pulmonary vascularity is not increased. N o pneumothorax is seen. Midline sternotomy sutures are present. The aortic arch and descending aorta show minimal calcification and tortuosity. The patient has had an anterior cervical disc fusion. XR/XR chest 1V portable [id number] Impression: 1. Scattered patchy pulmonary opacities consistent with pneumonia. 2. Atherosclerosis.
--- NOTE | 2020-09-27 11:29 | ED_ITS ---
HPI - COVID General: Chief Complaint: COVID symptoms Stated Complaint: covid symptoms Time Seen by Provider: 09/27/20 11:08 Triage information: Has fever, cough or shortness of breath . Exposure to COVID + person last 14 days History of Present Illness: HPI Narrative: Patient is a 75-year-old male who comes to the ER complaining of Covid symptoms. He has a history of coronary artery disease, OK, A. fib on Coumadin, end-stage renal disease formerly on dialysis now post kidney transplant, diabetes on insulin pump with left lower extremity amputation. He says he is illiterate and prefers that I get history from his . I spoke with his on the phone who had Covid herself a couple weeks ago. She says he started getting sick on the (10 days ago) and about 6 days ago he started to develop diarrhea for which they have been taking Imodium with some relief. He is eating and drinking less and she has been forcing him to drink Gatorade and Pedialyte to keep him hydrated. COVID 19 common symptoms: positive non-productive cough; negative productive cough, dyspnea, fatigue, headache(s), throat pain, nasal congestion or diarrhea COVID 19 other sytmptoms: negative chest pain or confusion COVID Results: SARS-CoV-2 Antigen (Rapid) Positive (Negative) H 09/27/20 12:40 09/27/20 Review of Systems General: Reports: 10 or more systems reviewed and unremarkable except in HPI and below Const: Denies: fatigue Eyes: Denies: change in vision, blurry vision or eye redness ENMT: Denies: throat pain, swelling of lips/tongue, ear or mastoid pain or nasal congestion Card: Denies: chest pain, palpitations, irregular heart rhythm, edema, dyspnea on exertion or orthopnea Resp: Reports: non-productive cough; Denies: dyspnea or productive cough GI: Denies: abdominal pain, diarrhea or GI cramping : Denies: flank pain, urinary frequency or urinary urgency Musc: Denies: neck pain, back pain, extremity pain, joint pain, joint redness, limited range of motion or muscle weakness Skin/Breast: Denies: rash, pruritus, erythema, skin pain or skin tenderness Neuro: Denies: headache(s), numbness in extremities, weakness in extremities, sensory changes, difficulty walking, dizziness, confusion or Slurred speech present Psych: Denies: anxiety or depression Endo: Denies: polyuria All/Imm: Denies: urticaria, throat swelling or tongue swelling PFSH ED PFSH: Medical History (Updated 09/27/20 @ 19:47 by Indra Bobo MD) Aortic root enlargement Diabetes Dyslipidemia End stage renal disease Essential hypertension manager support (current) use of opiate analgesic Myocardial infarction Pain management contract signed Paroxysmal atrial fibrillation Sleep apnea SVT (supraventricular tachycardia) Warfarin anticoagulation Surgical History Hx of amputation below knee Hx of CABG Hx of kidney transplant Family History Other CAD (coronary artery disease) Cancer Diabetes Hypertension Social History Smoking and tobacco status: former smoker Alcohol intake: former Adopted: No Caregiver/support person: No Lives independently: No Household members: spouse Marital status: Current occupational status: retired and disabled History of recent travel: No Physical Exam Const: COMMON NORMALS: no acute distress, average body habitus, patient oriented x3, no limitations, healthy appearing, alert and well nourished GENERAL APPEARANCE: cooperative, comfortable, well kempt and well developed ORIENTATION/CONSCIOUSNESS: Yes awake, Yes oriented to person, Yes oriented to place and Yes oriented to time HENMT: COMMON NORMALS: normocephalic, external ears normal and Normal external nose present HEAD & SCALP: normal to inspection and normocephalic NOSE: Normal external nose present EXTERNAL EAR: Yes external ears normal MOUTH: Normal oral and palatal mucosa present THROAT: posterior oropharynx normal Eye: COMMON NORMALS: Equal, round and reactive pupils present and EOMs intact bilaterally GENERAL EYE: appearance normal, both eyes and all related structures PUPIL: Yes Equal, round and reactive pupils present Neck/C-Spine: COMMON NORMALS: full ROM, no lymphadenopathy, no meningeal signs and no JVD GENERAL: Yes normal visual inspection Lymph: LYMPHATIC: no lymphadenopathy noted Chest: COMMONS NORMALS: normal inspection of the chest and normal palpation of entire chest wall Resp: COMMON NORMALS: normal respiratory effort, No retractions, No use of accessory muscles, clear to auscultation bilaterally and percussion normal EFFORT & INSPECTION: Yes able to speak in complete sentences AUSCULTATION: clear to auscultation bilaterally PERCUSSION: percussion normal Cardio: COMMON NORMALS: no JVD, regular rate, regular rhythm, S1 normal heart sound present, S2 normal heart sound present and Peripheral pulses 2+ throughout RATE: regular rate RHYTHM: regular rhythm HEART SOUNDS: S1 normal heart sound present and S2 normal heart sound present PERIPHERAL PULSES: Peripheral pulses 2+ throughout GI: COMMON NORMALS: Normal to inspection, nondistended, normoactive bowel sounds present, Soft to palpation, non-tender and no masses INSPECTION: Yes normal to inspection PALPATION: Yes Soft to palpation : COMMON NORMALS: Yes no CVA tenderness BLADDER/KIDNEY EXAM: Yes no CVA tenderness Back/Pelvis: COMMON NORMALS: no CVA tenderness, thoracic and lumbar spine normal to inspection, no thoracic nor lumbar tenderness and thoraco-lumbar ROM normal Extremity: COMMON NORMALS: normal to inspection, full ROM, capillary refill normal, no joint enlargement and no pedal edema NARRATIVE EXTREMITY EXAM: Left leg amputation chronically. Right lower extremity mild 1+ edema. GENERAL: Yes normal exam except as noted Neuro: COMMON NORMALS: patient oriented x3, CN's II-XII intact bilaterally, moves all extremities, no focal motor deficits, no sensory deficits noted and gait normal SENSORIUM/ORIENTATION: Yes alert, Yes oriented to person, Yes oriented to place and Yes oriented to time MENINGEAL SIGNS: Yes no meningeal signs Psych: COMMON NORMALS: mental status grossly normal, Normal thought process present, cooperative, normal affect and speech normal APPEARANCE: Yes well kempt ATTITUDE: Yes calm SPEECH: Yes normal speech THOUGHT PROCESS: Normal thought process present Skin: COMMON NORMALS: no rashes or lesions noted GENERAL SKIN EXAM: no rashes or lesions noted Course Vital Signs: Vital signs: Vital Signs Temperature 98.7 F 09/27/20 11:09 Pulse Rate 83 09/27/20 18:44 Respiratory Rate 20 H 09/27/20 18:44 Blood Pressure 173/98 09/27/20 18:44 Pulse Oximetry 92 09/27/20 18:44 MDM - COVID MDM Narrative: Medical decision making narrative: Patient came in with Covid symptoms and acute kidney injury. He is positive for Covid and likely has a kidney injury from dehydration related to feeling sick. Discussed with Dr. Rodriguez who recommended transfer to a center with nephrology. [facility] for [facility]. Lab Data: Labs: Lab Results 09/27/20 09/27/20 09/27/20 Range/Units 12:07 12:07 12:07 WBC 4.4 (4.0-10.0) 10^3/ uL RBC 5.10 (4.1-5.3) 10^6/u L Hgb 13.7 (11.7-16.6) g/dL Hct 42.6 (42.0-52.0) % MCV 83.5 (80-94) fL MCH 26.9 L (28.0-34.0) pg MCHC 32.2 (30.0-36.0) g/dL RDW 14.3 (12.1-15.1) % Plt Count 119 L (130-400) 10^3/c mm MPV 11.5 H (7.4-10.4) fL Neut % (Auto) 73.4 % Lymph % (Auto) 14.4 % [place] % (Auto) 11.5 % Eos % (Auto) 0.2 % Baso % (Auto) 0.0 % Neut # (Auto) 3.26 (1.8-7.7) 10^3/u L Lymph # (Auto) 0.6 L (0.8-4.8) 10^3/u L [place] # (Auto) 0.5 (0.2-0.9) 10^3/u L Eos # (Auto) 0.0 (0.0-0.8) 10^3/u L Baso # (Auto) 0.0 (0.0-0.1) 10^3/u L Nucleated RBC % (a uto) 0 % Nucleated RBCs # 0.0 /100WBC PT 89.40 H (12.1-14.9) SECO NDS INR 10.82 H* (0.8-1.2) D-Dimer 0.68 H (0-0.59) ug/mIFE U Sodium 135 L (136-145) mmol/L Potassium 5.0 (3.5-5.1) mmol/L Chloride 104 (98-107) mmol/L Carbon Dioxide 18 L (22-29) mmol/L Anion Gap 18.0 (5-19) BUN 79 H (8-23) mg/dL Creatinine 2.5 H (0.7-1.2) mg/dL GFR Calculation Not Reportable Glucose 269 H (65-115) mg/dL Calculated Osmolal ity 313 H (285-295) mOsm/k g Lactate (0.5-2.2) mmol/L Calcium 9.6 (8.5-10.5) mg/dL Total Bilirubin 0.5 (0.15-1.2) mg/dL AST 19 (0-40) U/L ALT 11 (0-41) U/L Alkaline Phosphata se 96 (40-130) IU/L Troponin T Baselin e (0-15) ng/L Troponin T 120 Min [place] (0-15) ng/L Delta Troponin T (0-10) ABS# NT-Pro-B Natriuret Pep 6209 H (0-125) pg/mL Total Protein 6.8 (6.6-8.7) g/dL Albumin 3.7 (3.5-5.2) g/dL Globulin 3.1 (1.3-4.6) g/dL Urine Color (Yellow) Urine Appearance (CLEAR) Urine pH (5-7) Ur Specific Gravit y (1.005-1.030) Urine Protein (Negative) Urine Glucose (UA) (Normal) Urine Ketones (Negative) Urine Blood (Negative) Urine Nitrate (Negative) Urine Bilirubin (Negative) Urine Urobilinogen (Negative) mg/dL Ur Leukocyte Kalee ase (Negative) Urine RBC (0-2) /hpf Urine WBC (0-5) /hpf Ur Squamous Epith Cells (0-5) /hpf Ur Transition Epit h Cell /hpf Amorphous Sediment Urine Bacteria (NONE) /hpf SARS-CoV-2 Ag (Rap id) (Negative) 09/27/20 09/27/20 09/27/20 Range/Units 12:07 12:07 12:40 WBC (4.0-10.0) 10^3/ uL RBC (4.1-5.3) 10^6/u L Hgb (11.7-16.6) g/dL Hct (42.0-52.0) % MCV (80-94) fL MCH (28.0-34.0) pg MCHC (30.0-36.0) g/dL RDW (12.1-15.1) % Plt Count (130-400) 10^3/c mm MPV (7.4-10.4) fL Neut % (Auto) % Lymph % (Auto) % [place] % (Auto) % Eos % (Auto) % Baso % (Auto) % Neut # (Auto) (1.8-7.7) 10^3/u L Lymph # (Auto) (0.8-4.8) 10^3/u L [place] # (Auto) (0.2-0.9) 10^3/u L Eos # (Auto) (0.0-0.8) 10^3/u L Baso # (Auto) (0.0-0.1) 10^3/u L Nucleated RBC % (a uto) % Nucleated RBCs # /100WBC PT (12.1-14.9) SECO NDS INR (0.8-1.2) D-Dimer (0-0.59) ug/mIFE U Sodium (136-145) mmol/L Potassium (3.5-5.1) mmol/L Chloride (98-107) mmol/L Carbon Dioxide (22-29) mmol/L Anion Gap (5-19) BUN (8-23) mg/dL Creatinine (0.7-1.2) mg/dL GFR Calculation Glucose (65-115) mg/dL Calculated Osmolal ity (285-295) mOsm/k g Lactate 1.6 (0.5-2.2) mmol/L Calcium (8.5-10.5) mg/dL Total Bilirubin (0.15-1.2) mg/dL AST (0-40) U/L ALT (0-41) U/L Alkaline Phosphata se (40-130) IU/L Troponin T Baselin e 79 H (0-15) ng/L Troponin T 120 Min [place] (0-15) ng/L Delta Troponin T (0-10) ABS# NT-Pro-B Natriuret Pep (0-125) pg/mL Total Protein (6.6-8.7) g/dL Albumin (3.5-5.2) g/dL Globulin (1.3-4.6) g/dL Urine Color (Yellow) Urine Appearance (CLEAR) Urine pH (5-7) Ur Specific Gravit y (1.005-1.030) Urine Protein (Negative) Urine Glucose (UA) (Normal) Urine Ketones (Negative) Urine Blood (Negative) Urine Nitrate (Negative) Urine Bilirubin (Negative) Urine Urobilinogen (Negative) mg/dL Ur Leukocyte Kalee ase (Negative) Urine RBC (0-2) /hpf Urine WBC (0-5) /hpf Ur Squamous Epith Cells (0-5) /hpf Ur Transition Epit h Cell /hpf Amorphous Sediment Urine Bacteria (NONE) /hpf SARS-CoV-2 Ag (Rap id) Positive H (Negative) 09/27/20 09/27/20 Range/Units 13:20 16:49 WBC (4.0-10.0) 10^3/ uL RBC (4.1-5.3) 10^6/u L Hgb (11.7-16.6) g/dL Hct (42.0-52.0) % MCV (80-94) fL MCH (28.0-34.0) pg MCHC (30.0-36.0) g/dL RDW (12.1-15.1) % Plt Count (130-400) 10^3/c mm MPV (7.4-10.4) fL Neut % (Auto) % Lymph % (Auto) % [place] % (Auto) % Eos % (Auto) % Baso % (Auto) % Neut # (Auto) (1.8-7.7) 10^3/u L Lymph # (Auto) (0.8-4.8) 10^3/u L [place] # (Auto) (0.2-0.9) 10^3/u L Eos # (Auto) (0.0-0.8) 10^3/u L Baso # (Auto) (0.0-0.1) 10^3/u L Nucleated RBC % (a uto) % Nucleated RBCs # /100WBC PT (12.1-14.9) SECO NDS INR (0.8-1.2) D-Dimer (0-0.59) ug/mIFE U Sodium (136-145) mmol/L Potassium (3.5-5.1) mmol/L Chloride (98-107) mmol/L Carbon Dioxide (22-29) mmol/L Anion Gap (5-19) BUN (8-23) mg/dL Creatinine (0.7-1.2) mg/dL GFR Calculation Glucose (65-115) mg/dL Calculated Osmolal ity (285-295) mOsm/k g Lactate (0.5-2.2) mmol/L Calcium (8.5-10.5) mg/dL Total Bilirubin (0.15-1.2) mg/dL AST (0-40) U/L ALT (0-41) U/L Alkaline Phosphata se (40-130) IU/L Troponin T Baselin e (0-15) ng/L Troponin T 120 Min [place] 76.81 H (0-15) ng/L Delta Troponin T -2.19 L (0-10) ABS# NT-Pro-B Natriuret Pep (0-125) pg/mL Total Protein (6.6-8.7) g/dL Albumin (3.5-5.2) g/dL Globulin (1.3-4.6) g/dL Urine Color Yellow (Yellow) Urine Appearance Sl hazy (CLEAR) Urine pH 5 (5-7) Ur Specific Gravit y 1.015 (1.005-1.030) Urine Protein Trace (Negative) Urine Glucose (UA) 2+ (Normal) Urine Ketones 1+ H (Negative) Urine Blood 2+ H (Negative) Urine Nitrate Negative (Negative) Urine Bilirubin Neg (Negative) Urine Urobilinogen Norm (Negative) mg/dL Ur Leukocyte Kalee ase 2+ H (Negative) Urine RBC 0-4 H (0-2) /hpf Urine WBC 80-100 H (0-5) /hpf Ur Squamous Epith Cells 10-15 H (0-5) /hpf Ur Transition Epit h Cell 0-4 /hpf Amorphous Sediment Not Reportable Urine Bacteria 1+ H (NONE) /hpf SARS-CoV-2 Ag (Rap id) (Negative) COVID Results: SARS-CoV-2 Antigen (Rapid) Positive (Negative) H 09/27/20 12:40 09/27/20 Discharge Plan Discharge Patient Disposition: Xfer Short-Term Hosp Clinical Impression: Acute kidney injury, COVID-19 Referrals: Priest,Druery, MD [Primary Care Provider] - Coding Level of Care Code ED Clubhouse Manager for Chg Fwd Exam Comprehensive
--- NOTE | 2020-09-27 11:29 | ECG_ITS ---
[facility] Test Date: 2020-09-27 Pat Name: Jaya Kidd Sr Department: Room: Gender: Male Operations Management Professionals: : 1945 Requested By: Indra Bobo Order Number: [id number] Reading MD: TARUN HARMAN Measurements Intervals [place] Rate: 76 P: MA: QRS: 13 QRSD: 157 T: 23 QT: 368 QTc: 415 Interpretive Statements Paced rhythm ABNORMAL RHYTHM ECG Compared to ECG 01/18/2020 05:11:53 Atrial fibrillation no longer present Right bundle-branch block no longer present Electronically Signed On 09-27-2020 20:21:42 CDT by TARUN HARMAN [id number]
--- NOTE | 2020-09-27 11:59 | USCV_ITS ---
Bernabe Parisi Jaya Age: 75 Gender: M : 1945 Exam Date: 09/27/2020 12:29 Ordering Phys: Indra Bobo MD Technologist: Saadia Campo [place] [facility] [place] Indication: DVT HISTORY: DVT. PROCEDURES: Venous duplex imaging was performed in only the right lower extremity. The following venous structures were evaluated: common femoral vein, profunda vein, proximal portion of the greater saphenous vein, superficial femoral vein, and the popliteal vein. In addition, the posterior tibial and peroneal trunk were evaluated. Serial compression, augmentation maneuvers, and spectral Doppler flow evaluation were performed. FINDINGS: Normal 2-D Doppler and augmentation and compressibility throughout the lower extremity venous structures. Additional imaging through the proximal calf veins also reveals no thrombus. Limited evaluation of the greater saphenous vein is patent with no thrombus.. CONCLUSIONS No evidence of right lower extremity DVT. Rick Bernstein MD (Electronically Signed) Final Date: 27 September 2020 16:52 S
[2020-09-27] MEDS: sodium chloride 0.9% 1,000 ML 999 ML IV (12:21)
[2020-09-27 12:22] LABS: Eosinophils % 0.2 %; Hematocrit 42.6 % (42.0-52.0); Hemoglobin 13.7 g/dL (11.7-16.6); Lymphocytes # 0.6 10^3/uL (0.8-4.8); Lymphocytes % 14.4 %; Mean Corpuscular HGB Conc 32.2 g/dL (30.0-36.0); Mean Corpuscular Hemoglobin 26.9 pg (28.0-34.0); Mean Corpuscular Volume 83.5 fL (80-94); Mean Platelet Volume 11.5 fL (7.4-10.4); Monocytes # 0.5 10^3/uL (0.2-0.9); Monocytes % 11.5 %; Neutrophils # 3.26 10^3/uL (1.8-7.7); Neutrophils % 73.4 %; Nucleated Red Blood Cells % 0 %; Platelet Count 119 10^3/cmm (130-400); Red Cell Distribution Width 14.3 % (12.1-15.1); White Blood Count 4.4 10^3/uL (4.0-10.0)
[2020-09-27 12:36] LABS: D Dimer 0.68 ug/mIFEU (0-0.59); Lactate (Lactic Acid level) 1.6 mmol/L (0.5-2.2)
[2020-09-27 12:38] LABS: Troponin(5th) Baseline 79 ng/L (0-15)
[2020-09-27 12:57] LABS: INR 10.82 (0.8-1.2)
--- NOTE | 2020-09-27 12:58 | PC.NURSE ---
INR of 10.82
[2020-09-27 13:13] LABS: SARS Covid-2 Antigen Positive (Negative)
[2020-09-27] MEDS: levofloxacin-dextrose 5 % 750 MG/150 ML PREMIX 100 MG IV (13:22)
[2020-09-27] MEDS: phytonadione (ADULT) 10 mg/mL Ampule 1 mL 5 MG PO (13:22)
[2020-09-27 13:27] LABS: Alanine Aminotransferase 11 U/L (0-41); Albumin Level 3.7 g/dL (3.5-5.2); Alkaline Phosphatase 96 IU/L (40-130); Aspartate Amino Transferase 19 U/L (0-40); Blood Urea Nitrogen 79 mg/dL (8-23); Calcium 9.6 mg/dL (8.5-10.5); Carbon Dioxide 18 mmol/L (22-29); Chloride 104 mmol/L (98-107); Globulin 3.1 g/dL (1.3-4.6); Glucose 269 mg/dL (65-115); NT Pro B Type Natriuretic Pept 6209 pg/mL (0-125); Osmolality Calculated 313 mOsm/kg (285-295); Sodium 135 mmol/L (136-145); Total Bilirubin 0.5 mg/dL (0.15-1.2); Total Protein 6.8 g/dL (6.6-8.7)
--- NOTE | 2020-09-27 13:29 | ECG_ITS ---
[facility] Test Date: 2020-09-27 Pat Name: Jaya Kidd Sr Department: Room: Gender: Male Iv Rn: : 1945 Requested By: Indra Bobo Order Number: [id number] Elena MD: TARUN HARMAN Measurements Intervals [place] Rate: 70 P: [place]: QRS: 26 QRSD: 161 T: 26 QT: 378 QTc: 410 Interpretive Statements ATRIAL FIBRILLATION RIGHT BUNDLE BRANCH BLOCK [120+ ms QRS DURATION, UPRIGHT V1, 40+ ms S IN I/aVL/V4/V5/V6] Compared to ECG 09/27/2020 11:58:38 Right bundle-branch block now present Ventricular-paced complex(es) or rhythm no longer present Electronically Signed On 09-27-2020 20:26:14 CDT by TARUN HARMAN [email or web address]-[email or web address]/store/OM/[id number]
[2020-09-27 13:53] LABS: Troponin 5 2HR 76.81 ng/L (0-15)
[2020-09-27 13:54] LABS: Troponin 5 2HR Delta -2.19 ABS# (0-10)
[2020-09-27] MEDS: dexamethasone 10 mg/mL INJ IVP (14:44)
[2020-09-27 17:13] LABS: Add Urine Microscopic? YES; Bilirubin Urine Neg (Negative); Blood Urine 2+ (Negative); Glucose Urine UA 2+ (Normal); Ketones Urine 1+ (Negative); Leukocyte Esterase Urine 2+ (Negative); Nitrate Urine Negative (Negative); Protein Urine Trace (Negative); Specific Gravity, Urine 1.015 (1.005-1.030); Urine Appearance SL Hazy (CLEAR); Urine Color Yellow (Yellow); Urobilinogen Urine Norm (Negative); pH Urine 5 (5-7)
[2020-09-27 17:34] LABS: Add Urine Culture? No; Bacteria Urine 1+ /hpf; RBC Urine 0-4 /hpf (0-2); Transitional Epi Cells Urine 0-4 /hpf; WBC Urine 80-100 /hpf (0-5)
== END 2020-09-27 19:28 | disposition short-term general hospital (02) ==
PROVIDERS: Emergency Provider Family Medicine; PCP Family Medicine
DX: U07.1 COVID-19 (principal); N17.9 Acute kidney failure, unspecified; E11.22 Type 2 diabetes mellitus with diabetic chronic kidney disease; I12.0 Hypertensive chronic kidney disease with stage 5 chronic kidney disease or end stage renal disease; N18.6 End stage renal disease; E78.5 Hyperlipidemia, unspecified; I25.2 Old myocardial infarction; Z95.1 Presence of aortocoronary bypass graft; Z89.519 Acquired absence of unspecified leg below knee; Z87.891 Personal history of nicotine dependence
CPT/HCPCS: 36415; 71045; 80053; 81001; 83605; 83880; 84484; 85025; 85378; 85610; 87040; 87426; 93005; 93971; 96365; 96375; 99285; J1100; J1956; J3430; J7030

== ENCOUNTER → 2020-10-09 10:16 | Outpatient (BNVA) | payer MEDICARE, OTHER, SELFPAY | PROVIDERS: PCP Family Medicine; Visit Provider Family Medicine | DX: Z79.01 Long term (current) use of anticoagulants (principal); I10 Essential (primary) hypertension; Z94.0 Kidney transplant status | CPT/HCPCS: 80053; 80197; 82310; 83970; 84550; 85025; 85610 ==

== ENCOUNTER → 2020-10-12 09:08 | Outpatient (BNVA) | payer MEDICARE, OTHER, SELFPAY | PROVIDERS: PCP Family Medicine; Visit Provider Family Medicine | DX: N18.6 End stage renal disease (principal); Z79.01 Long term (current) use of anticoagulants | CPT/HCPCS: 80197 ==

== ENCOUNTER 2020-11-03 11:20 | Emergency (ER) | payer MEDICARE, OTHER, SELFPAY ==
[2020-11-03 11:54] VITALS: BP 145/45; PULSE 74; RESP 16; TEMP 36.6; O2SAT 98; BMI 30.5
--- NOTE | 2020-11-03 13:01 | XR_ITS ---
WS: [id number] Left knee, 3 views, 11/03/2020 Clinical Data: stump with erythema Comparison: None. Findings: No fractures or dislocations are seen. The patient has had a below the knee amputation. There are tamara cifications in the chondral cartilages. There is narrowing of the medial joint compartment. There is a small osteophyte of the medial femoral condyle. The patella is intact. There is calcification in th e wall of the superficial femoral artery and its distal branches.There are other small subcutaneous v ascular calcifications in the stump. XR/XR knee LT 3V* [id number] Impression: 1. Medial joint compartment narrowing of the left knee. 2. Chondral joint calcifications. 3. Below the knee amputation. Kellgren-Aquiles Classification: grade 2 (minimal): definite osteophytes and p ossible joint space narrowing
--- NOTE | 2020-11-03 13:02 | ED_ITS ---
HPI - Extremity Problem General: Chief complaint: Extremity Problem,Nontraumatic Stated complaint: Inflammation/Redness Time Seen by Provider: 11/03/20 12:58 History of Present Illness: HPI Narrative: Patient presents with a 2-day history of redness to his left BKA after he let his stump hit a chair the stump has got redder over the last couple days and is painful MD Complaint: extremity pain and extremity swelling Onset (ago): day(s) Location: left, lower extremity and knee Severity scale (1-10): 4 Quality: aching Relieving factors: immobilization Exacerbating factors: range of motion Associated symptoms: Reports no associated symptoms; Deny chest pain, fever(s) or rash Review of Systems Const: Denies: fever(s), chills or body aches Eyes: Denies: change in vision or blurry vision ENMT: Denies: throat pain or nasal congestion Card: Denies: chest pain or dyspnea on exertion Resp: Denies: dyspnea, productive cough or non-productive cough GI: Denies: abdominal pain, nausea or vomiting : Denies: difficulty urinating Musc: Reports: extremity pain, joint pain and joint swelling (Left BKA is tender mild erythema) Skin/Breast: Denies: rash Neuro: Denies: headache(s) Psych: Denies: anxiety or depression Quoc/Lymph: Denies: easy bruising PFSH ED PFSH: Medical History Aortic root enlargement Diabetes Dyslipidemia End stage renal disease 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 Myocardial infarction Pain management contract signed Paroxysmal atrial fibrillation Sleep apnea SVT (supraventricular tachycardia) Warfarin anticoagulation Surgical History Hx of amputation below knee Hx of CABG Hx of kidney transplant Family History Other CAD (coronary artery disease) Cancer Diabetes Hypertension Social History Smoking and tobacco status: former smoker Alcohol intake: former Adopted: No Caregiver/support person: No Lives independently: No Household members: spouse Marital status: Current occupational status: retired and disabled History of recent travel: No Physical Exam Const: COMMON NORMALS: no acute distress, average body habitus and patient oriented x3 HENMT: COMMON NORMALS: normocephalic HEAD & SCALP: normal to inspection and normocephalic FACE & SINUS: normal facial exam Eye: COMMON NORMALS: conjunctivae normal GENERAL EYE: appearance normal, both eyes and all related structures CONJUNCTIVA: Yes conjunctivae normal Neck/C-Spine: COMMON NORMALS: no JVD Chest: COMMONS NORMALS: normal inspection of the chest Resp: COMMON NORMALS: normal respiratory effort and clear to auscultation bilaterally AUSCULTATION: clear to auscultation bilaterally Cardio: COMMON NORMALS: no JVD, regular rate and regular rhythm RATE: regu lar rate RHYTHM: regular rhythm GI: COMMON NORMALS: Normal to inspection, nondistended, normoactive bowel sounds present Extremity: COMMON NORMALS: full ROM LEFT LOWER EXTREMITY: Yes knee joint (Mild erythema with tenderness above the knee joint) Neuro: COMMON NORMALS: patient oriented x3 Course Vital Signs: Vital signs: Vital Signs Temperature 97.9 F 11/03/20 11:54 Pulse Rate 74 11/03/20 11:54 Respiratory Rate 16 11/03/20 11:54 Blood Pressure 145/45 11/03/20 11:54 Pulse Oximetry 98 11/03/20 11:54 Discharge Plan Discharge Prescriptions: No Action aspirin [Adult Low Dose Aspirin] 81 mg tablet,delayed release (DR/EC) 81 mg PO QAM RF: 0 tacrolimus 1 mg capsule 1 mg PO Q12H RF: 0 mycophenolate mofetil 250 mg capsule 500 mg PO BID RF: 0 prednisone 5 mg tablet 5 mg PO QAM RF: 0 cholecalciferol (vitamin D3) 3,000 unit tablet 3,000 unit PO QAM RF: 0 magnesium oxide 400 mg magnesium tablet 400 mg PO QAM RF: 0 cetirizine [All Day Allergy (cetirizine)] 10 mg tablet 10 mg PO DAILY PRN (Reason: allergies) RF: 0 carvedilol 12.5 mg tablet 12.5 mg PO Q12H Qty: 180 RF: 2 amlodipine 5 mg tablet See Rx Instructions .ROUTE .COMPLEX Qty: 90 RF: 0 tamsulosin 0.4 mg capsule 0.4 mg PO BEDTIME Qty: 90 RF: 2 digoxin 125 mcg (0.125 mg) tablet 125 mcg PO DAILY 90 Days Qty: 90 RF: 3 Dayquil Gel Caps 2 cap PO PRN RF: 0 Nyquil Gel Caps 2 cap PO PRN RF: 0 Lipitor 20 mg tablet 20 mg PO BEDTIME RF: 0 Novolog U-100 Insulin aspart 100 unit/mL solution See Rx Instructions .ROUTE .COMPLEX RF: 0 warfarin 5 mg tablet See Rx Instructions .ROUTE .COMPLEX RF: 0 Coding Level of Care Code ED Night Auditor for Antionette Fenton
[2020-11-03 13:20] LABS: Basophils % 0.2 %; Eosinophils % 0.5 %; Hematocrit 34.9 % (42.0-52.0); Hemoglobin 10.7 g/dL (11.7-16.6); Lymphocytes # 0.6 10^3/uL (0.8-4.8); Lymphocytes % 6.9 %; Mean Corpuscular HGB Conc 30.7 g/dL (30.0-36.0); Mean Corpuscular Hemoglobin 27.5 pg (28.0-34.0); Mean Corpuscular Volume 89.7 fL (80-94); Mean Platelet Volume 9.9 fL (7.4-10.4); Monocytes # 0.8 10^3/uL (0.2-0.9); Monocytes % 9.8 %; Neutrophils # 6.67 10^3/uL (1.8-7.7); Neutrophils % 82.1 %; Nucleated Red Blood Cells % 0 %; Platelet Count 149 10^3/cmm (130-400); Red Blood Count 3.89 10^6/uL (4.1-5.3); Red Cell Distribution Width 15.5 % (12.1-15.1); White Blood Count 8.1 10^3/uL (4.0-10.0)
[2020-11-03] MEDS: cefTRIAXone 1,000 MG in sodium chloride 0.9% (plus) 50 ML 100 MG IV (13:40)
[2020-11-03 14:33] VITALS: BP 148/66; PULSE 63; O2SAT 92
== END 2020-11-03 14:33 | disposition home or self-care (01) ==
PROVIDERS: Emergency Provider Nurse Practitioner Family; PCP Family Medicine
DX: M79.605 Pain in left leg (principal); Z89.512 Acquired absence of left leg below knee; Z79.82 Long term (current) use of aspirin; Z79.01 Long term (current) use of anticoagulants; Z79.4 Long term (current) use of insulin; E78.5 Hyperlipidemia, unspecified; E11.22 Type 2 diabetes mellitus with diabetic chronic kidney disease; I12.0 Hypertensive chronic kidney disease with stage 5 chronic kidney disease or end stage renal disease; N18.6 End stage renal disease; I25.2 Old myocardial infarction; I48.0 Paroxysmal atrial fibrillation; Z95.1 Presence of aortocoronary bypass graft; Z94.0 Kidney transplant status; Z87.891 Personal history of nicotine dependence
CPT/HCPCS: 73562; 85025; 96365; 99283; J0696

== ENCOUNTER → 2020-11-23 09:58 | Outpatient (BNVA) | payer MEDICARE, OTHER, SELFPAY | PROVIDERS: PCP Family Medicine; Visit Provider Family Medicine | DX: E11.9 Type 2 diabetes mellitus without complications (principal); I73.9 Peripheral vascular disease, unspecified; Z94.0 Kidney transplant status | CPT/HCPCS: 80048; 83036 ==

== ENCOUNTER → 2021-01-10 08:18 | Outpatient (BNVA) | payer MEDICARE, OTHER, SELFPAY | PROVIDERS: PCP Family Medicine; Visit Provider Family Medicine | DX: Z94.0 Kidney transplant status (principal) | CPT/HCPCS: 80053; 80197; 82310; 83735; 83970; 84550; 85025 ==

== ENCOUNTER → 2021-01-17 08:46 | Outpatient (BNVA) | payer MEDICARE, OTHER, SELFPAY | PROVIDERS: PCP Family Medicine; Visit Provider Family Medicine | DX: Z94.0 Kidney transplant status (principal) | CPT/HCPCS: 80053; 80197; 82310; 82570; 83735; 83970; 84156; 84550; 85025 ==

== ENCOUNTER → 2021-03-14 09:16 | Outpatient (BNVA) | payer MEDICARE, OTHER, SELFPAY | PROVIDERS: PCP Family Medicine; Visit Provider Family Medicine | DX: Z94.0 Kidney transplant status (principal) | CPT/HCPCS: 80053; 80197; 81003; 82310; 82570; 83735; 83970; 84156; 84550; 85025; 87077; 87086; 87184 ==

== ENCOUNTER 2021-03-19 12:53 | Emergency (ER) | payer MEDICARE, OTHER, SELFPAY ==
[2021-03-19 14:31] VITALS: BP 164/84; PULSE 71; RESP 12; TEMP 36.9; O2SAT 97; BMI 29.4
--- NOTE | 2021-03-19 17:08 | ECG_ITS ---
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 Measurements Intervals [place] Rate: 61 P: [place]: QRS: 18 QRSD: 152 T: 33 QT: 376 QTc: 379 Interpretive Statements ATRIAL FIBRILLATION RIGHT BUNDLE BRANCH BLOCK [120+ ms QRS DURATION, UPRIGHT V1, 40+ ms S IN I/aVL/V4/V5/V6] Compared to ECG 11/04/2018 11:02:21 Ventricular premature complex(es) no longer present Aberrant conduction of supraventricular beat(s) no longer present Electronically Signed On 03-19-2021 22:07:28 CDT by Ha Dutton M.D. [id number]
--- NOTE | 2021-03-19 17:08 | CTR_ITS ---
PROCEDURE INFORMATION: Exam: CT Head Without Contrast Exam date and time: 03/19/2021 5:08 PM Age: 75 years old Clinical indication: Injury or trauma; Fall; Blunt trauma (contusions or hematomas); Without loss of consciousness TECHNIQUE: Imaging protocol: Computed tomography of the head without contrast. Radiation optimization: All CT scans at this facility use at least one of these dose optimization techniques: automated exposure control; mA and/or kV adjustment per patient size (includes targeted exams where dose is matched to clinical indication); or iterative reconstruction. COMPARISON: CT head wo con* [id number] 01/17/2020 9:18 PM RADIATION DOSE METRICS: Total DLP (mGy-cm): 866.82 FINDINGS: Brain: There is diffuse cerebral atrophy and chronic microvascular white matter disease. There is a focal hypodensity in the left thalamus suggesting a chronic lacunar infarct. There is no acute intracranial hemorrhage. Cerebral ventricles: There is mild ex vacuo dilation of the lateral ventricles. The basal cisterns are unremarkable. Paranasal sinuses: The paranasal sinuses are clear. Mastoid air cells: The mastoid air cells are clear. Bones/joints: The calvarium is intact. Soft tissues: The visible extracranial soft tissues are unremarkable. CT/CT head wo con* [id number] IMPRESSION: 1. No acute intracranial abnormality. 2. Old lacunar infarct in the left thalamus. Radiation Dose CTDIVOL = (mGy): DLP = 866.82 (mGy-cm)
--- NOTE | 2021-03-19 17:08 | CTR_ITS ---
PROCEDURE INFORMATION: Exam: CT Cervical Spine Without Contrast Exam date and time: 03/19/2021 5:08 PM Age: 75 years old Clinical indication: Injury or trauma; Blunt trauma; Injury details: Fall off ladder; Prior surgery TECHNIQUE: Imaging protocol: Computed tomography images of the cervical spine without contrast. Radiation optimization: All CT scans at this facility use at least one of these dose optimization techniques: automated exposure control; mA and/or kV adjustment per patient size (includes targeted exams where dose is matched to clinical indication); or iterative reconstruction. COMPARISON: CT head wo con* [id number] 03/19/2021 5:36 PM RADIATION DOSE METRICS: Total DLP (mGy-cm): 745.44 FINDINGS: Bones/joints: Spinal alignment is normal. Vertebral body height is maintained. There is anterior fusion from C5 through C7 with a vertebral cage at C6. No acute fracture. Discs/Spinal canal/Neural foramina: There is mild spinal canal narrowing at C1-C2. Lungs: Lung apices are normal. Vasculature: There is mild atherosclerotic disease of the carotid arteries bilaterally. Soft tissues: There is marked ligamentous hypertrophy about the dens. Soft tissues in the neck and thoracic inlet are unremarkable. CT/CT cervical spin wo con* [id number] IMPRESSION: No acute fracture. Radiation Dose CTDIVOL = (mGy): DLP = 745.44 (mGy-cm)
--- NOTE | 2021-03-19 17:08 | CTR_ITS ---
PROCEDURE INFORMATION: Exam: CT Abdomen And Pelvis With Contrast Exam date and time: 03/19/2021 5:08 PM Age: 75 years old Clinical indication: Abdominal pain; Flank; Right; Prior surgery; Surgery type: Appy, triple bypass, kidney transplant, insulin pump; Additional info: Fall, trauma, right flank pain, on warfarin TECHNIQUE: Imaging protocol: Computed tomography of the abdomen and pelvis with contrast. Radiation optimization: All CT scans at this facility use at least one of these dose optimization techniques: automated exposure control; mA and/or kV adjustment per patient size (includes targeted exams where dose is matched to clinical indication); or iterative reconstruction. Contrast material: OMNI 300; Contrast volume: 95 ml; Contrast route: INTRAVENOUS (IV); COMPARISON: CT kidney stone [id number] 01/17/2020 8:47 PM RADIATION DOSE METRICS: Total DLP (mGy-cm): 1755.92 FINDINGS: Lungs: There is mild dependent atelectasis at the lung bases. Pleural spaces: There is a small left pleural effusion. Heart: The heart is mildly enlarged. Liver: There are 3 hypodense lesions in the right lobe of the liver, the largest measuring 9 mm on image 16. These are not significantly changed from the prior noncontrast examination. There is also an 8 x 17 mm hypodense lesion in the inferior tip the right lobe of the liver such as on image number 24 which is present in retrospect on the prior examination and not significantly changed. Gallbladder and bile ducts: Possible gallstones. These are not as well seen as on the prior study. There is no gallbladder wall thickening or pericholecystic fluid. Pancreas: The pancreas is normal. Spleen: Normal. No splenomegaly. Adrenal glands: The adrenal glands are normal. Kidneys and ureters: [place] kidneys are atrophic. There is transplant kidney on the left side of the pelvis with cysts in the upper and lower poles in some mild atrophy in the lower pole. Allowing for technical differences between the studies there is no significant change. There is no hydronephrosis. Stomach and bowel: There is no evidence of colitis/diverticulitis. There is no evidence of intestinal obstruction. Appendix: Not Identified Intraperitoneal space: There is no evidence of free intraperitoneal fluid. Vasculature: The aorta demonstrates moderate atherosclerotic calcification. There is no evidence of an abdominal aortic aneurysm. Lymph nodes: Unremarkable. No enlarged lymph nodes. Urinary bladder: There is moderate thickening of the urinary bladder not changed from previous. This may be due to muscular hypertrophy from chronic outlet obstruction. Please correlate for any clinical signs or symptoms of urinary tract infection. Reproductive: The prostate demonstrates marked nonspecific enlargement. The seminal vesicles are normal. Bones/joints: Unremarkable. No acute fracture. Soft tissues: Unremarkable. CT/CT abdomen pelvis w con* [id number] IMPRESSION: 1. No acute intra-abdominal finding. 2. Chronic findings as described above not significantly changed. COMMENTS: Consistent with the [place] [employer]'s Incidental Findings Committee white paper (J Am Miguel Radiol 2018): Any incidental renal lesion less than 1 cm or classified as too small to characterize, or any incidental cystic renal lesion characterized as simple-appearing, is likely benign. No follow-up imaging is recommended for these lesions per consensus recommendations based on imaging criteria. Radiation Dose CTDIVOL = (mGy): DLP = 1755.92 (mGy-cm)
--- NOTE | 2021-03-19 17:10 | ED_ITS ---
HPI - Fall General: Chief Complaint: Fall Stated Complaint: Back Pain from fall Time Seen by Provider: 03/19/21 16:49 History of Present Illness: HPI Narrative: 75-year-old male who is on warfarin presents due to small right ear laceration and right flank pain since a fall on Friday. Does report hitting his head but denies any headache or neck pain. States that he fell off of the ladder for 1 step but hit it small side table on the way down and shattered it. Does not know date with tetanus shot. Denies any focal numbness weakness or tingling. Denies any chest pain or shortness of breath. Denies any prodrome prior to the fall. Review of Systems Narrative: - CONSTITUTIONAL: Denies weight loss, fever and chills. - HEENT: Denies changes in vision and hearing. - RESPIRATORY: Denies SOB and cough. - CV: Denies palpitations and CP. - GI: Reports right flank pain. Denies abdominal pain, nausea, vomiting and diarrhea. - : Denies dysuria and urinary frequency. - MSK: Denies myalgia and joint pain. - SKIN: Denies rash and pruritus. - NEUROLOGICAL: Denies headache, weakness, numbness and syncope. 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 Myocardial infarction Pain management contract signed Paroxysmal atrial fibrillation Sleep apnea SVT (supraventricular tachycardia) Warfarin anticoagulation Surgical History Hx of amputation below knee Hx of CABG Hx of kidney transplant Family History Other CAD (coronary artery disease) Cancer Diabetes Hypertension Social History Smoking and tobacco status: former smoker Alcohol intake: former Adopted: No Caregiver/support person: No Lives independently: No Household members: spouse Marital status: Current occupational status: retired and disabled History of recent travel: No Physical Exam Narrative: EXAM NARRATIVE: - GENERAL: Alert and oriented x 3. No acute distress. Well-nourished. - EYES: EOMI. Anicteric. - HENT: Small partially healing laceration of the right ear, approximately 2 cm, no sign of basilar skull fracture, no C-spine tenderness. Moist mucous membranes. No scleral icterus. No cervical lymphadenopathy. - LUNGS: Clear to auscultation bilaterally. No accessory muscle use. Equal lung sounds bilaterally. No respiratory distress. - CARDIOVASCULAR: Regular rate and rhythm. No murmur. No JVD. - ABDOMEN: Soft, non-tender and non-distended. Right flank pain, no flank pain on the left, no hematoma no rebound or guarding, negative Jeffrey sign. No palpable masses. - EXTREMITIES: No edema. Non-tender. - SKIN: No rashes or lesions. Warm. - NEUROLOGIC: No meningismus or focal neurological deficits. CN II-XII grossly intact. - PSYCHIATRIC: Cooperative. Appropriate mood and affect. Course Vital Signs: Vital signs: Vital Signs Temperature 98.4 F 03/19/21 14:31 Pulse Rate 71 03/19/21 14:31 Respiratory Rate 12 03/19/21 14:31 Blood Pressure 164/84 03/19/21 14:31 Pulse Oximetry 97 03/19/21 14:31 MDM - Fall MDM Narrative: Medical decision making narrative: 75-year-old male presents with flank pain after fall. States it was mechanical fall. Does have a history of chronic A. fib and is on warfarin. INR mildly subtherapeutic instructed to follow-up with warfarin clinic. CT scan of the head C-spine and abdomen pelvis does not reveal any intracranial hemorrhage fracture dislocation or other acute intra-abdominal etiology. There is no peritoneal or retroperitoneal hematoma. Remainder of lab work is unremarkable except for chronically elevated creatinine which is at his baseline. Prescription for tramadol provided due to pain patient stating that he was told previously by his regular doctor and he cannot take NSAIDs or Tylenol long-term. At this time I believe patient would be safe for discharge and outpatient follow-up. Return precautions provided. Plan was reviewed with the patient who expressed understanding. Questions answered. Patient will follow up with PCP. Patient discharged in stable condition. Lab Data: Labs: Lab Results 03/19/21 03/19/21 03/19/21 17:20 17:20 17:20 WBC 6.9 10^3/uL 10^3/ uL (4.0-10.0) RBC 4.19 10^6/uL 10^6 /uL (4.1-5.3) Hgb 11.1 g/dL L g/dL (11.7-16.6) Hct 36.0 % L % (42.0-52.0) MCV 85.9 fl fl (80-94) MCH 26.5 pg L pg (28.0-34.0) MCHC 30.8 g/dL g/dL (30.0-36.0) RDW 15.0 % % (12.1-15.1) Plt Count 142 10^3/cmm 10^3 /cmm (130-400) MPV 10.8 fL H fL (7.4-10.4) Neut % (Auto) 80.1 % % Lymph % (Auto) 12.9 % % [place] % (Auto) 6.3 % % Eos % (Auto) 0.1 % % Baso % (Auto) 0.3 % % Neut # (Auto) 5.51 10^3/uL 10^3 /uL (1.8-7.7) Lymph # (Auto) 0.9 10^3/uL 10^3/ uL (0.8-4.8) [place] # (Auto) 0.4 10^3/uL 10^3/ uL (0.2-0.9) Eos # (Auto) 0.0 10^3/uL 10^3/ uL (0.0-0.8) Baso # (Auto) 0.0 10^3/uL 10^3/ uL (0.0-0.1) Nucleated RBC % (a uto) 0 % % Nucleated RBCs # 0.0 /100WBC /100W BC PT 21.30 SECONDS H S ECONDS (12.1-14.9) INR 1.80 H (0.8-1.2) APTT 36.6 SECONDS SECO NDS (23.9-36.7) Sodium 137 mmol/L mmol/L (136-145) Potassium 4.8 mmol/L mmol/L (3.5-5.1) Chloride 102 mmol/L mmol/L (98-107) Carbon Dioxide 23 mmol/L mmol/L (22-29) Anion Gap 16.8 (5-19) BUN 28 mg/dL H mg/dL (8-23) Creatinine 1.6 mg/dL H mg/dL (0.7-1.2) GFR Calculation Not Reportable Glucose 226 mg/dL H mg/dL (65-115) Calculated Osmolal ity 297 mOsm/kg H mOs m/kg (285-295) Calcium 9.2 mg/dL mg/dL (8.5-10.5) Total Bilirubin 0.8 mg/dL mg/dL (0.15-1.2) AST 13 U/L U/L (0-40) ALT 9 U/L U/L (0-41) Alkaline Phosphata se 92 IU/L IU/L (40-130) Total Protein 5.9 g/dL L g/dL (6.6-8.7) Albumin 3.5 g/dL g/dL (3.5-5.2) Globulin 2.4 g/dL g/dL (1.3-4.6) EKG Data^: EKG 1: Other EKG comments: A. fib, rate of 61, with bundle branch block, otherwise no sign of acute ischemia or other acute abnormality. Discharge Plan Discharge Prescriptions: No Action tacrolimus 1 mg capsule See Rx Instructions .ROUTE .COMPLEX RF: 0 mycophenolate mofetil 250 mg capsule 500 mg PO BID@0900,2100 RF: 0 prednisone 5 mg tablet 5 mg PO DAILY@0900 RF: 0 cholecalciferol (vitamin D3) 3,000 unit tablet 3,000 unit PO DAILY@0900 RF: 0 cetirizine [All Day Allergy (cetirizine)] 10 mg tablet 10 mg PO DAILY PRN (Reason: allergies) RF: 0 carvedilol 12.5 mg tablet 12.5 mg PO Q12H Qty: 180 RF: 2 warfarin 5 mg tablet See Rx Instructions .ROUTE .COMPLEX Qty: 90 RF: 3 amlodipine 5 mg tablet 10 mg PO DAILY@0900 Qty: 180 RF: 2 hydrochlorothiazide 12.5 mg tablet 25 mg PO DAILY Qty: 90 RF: 2 hydralazine 100 mg tablet 100 mg PO TID Qty: 270 RF: 3 atorvastatin [Lipitor] 20 mg tablet 20 mg PO BEDTIME@2100 Qty: 90 RF: 1 lisinopril 40 mg tablet 40 mg PO DAILY Qty: 90 RF: 1 sodium bicarbonate 650 mg tablet 1,300 mg PO TID@09,12,21 RF: 0 Combigan 0.2-0.5 % Drops 1 drp ophthalmic (eye) BEDTIME@2100 RF: 0 tamsulosin 0.4 mg capsule 0.4 mg PO BEDTIME@2100 RF: 0 digoxin 125 mcg (0.125 mg) tablet 125 mcg PO DAILY@0900 RF: 0 insulin aspart U-100 [Novolog U-100 Insulin aspart] 100 unit/mL solution See Rx Instructions .ROUTE .COMPLEX RF: 0 Coding Level of Care Code ED Agronomy Research Manager for Antionette Fenton
[2021-03-19] MEDS: HYDROcodone-acetaminophen 5-325 mg Tablet 1 TAB PO (17:24)
[2021-03-19] MEDS: tetanus-diphtheria tox (adult) 0.5 mL SDV IM (17:25)
[2021-03-19 17:28] LABS: Basophils % 0.3 %; Eosinophils % 0.1 %; Hemoglobin 11.1 g/dL (11.7-16.6); Lymphocytes # 0.9 10^3/uL (0.8-4.8); Lymphocytes % 12.9 %; Mean Corpuscular HGB Conc 30.8 g/dL (30.0-36.0); Mean Corpuscular Hemoglobin 26.5 pg (28.0-34.0); Mean Corpuscular Volume 85.9 fl (80-94); Mean Platelet Volume 10.8 fL (7.4-10.4); Monocytes # 0.4 10^3/uL (0.2-0.9); Monocytes % 6.3 %; Neutrophils # 5.51 10^3/uL (1.8-7.7); Neutrophils % 80.1 %; Nucleated Red Blood Cells % 0 %; Platelet Count 142 10^3/cmm (130-400); Red Blood Count 4.19 10^6/uL (4.1-5.3); White Blood Count 6.9 10^3/uL (4.0-10.0)
[2021-03-19 17:41] LABS: Partial Thromboplastin Time 36.6 SECONDS (23.9-36.7)
[2021-03-19] MEDS: iodixanol 320 mg/mL 100mL Btl IV (17:45)
[2021-03-19 17:47] LABS: Alanine Aminotransferase 9 U/L (0-41); Albumin Level 3.5 g/dL (3.5-5.2); Alkaline Phosphatase 92 IU/L (40-130); Aspartate Amino Transferase 13 U/L (0-40); Blood Urea Nitrogen 28 mg/dL (8-23); Calcium 9.2 mg/dL (8.5-10.5); Carbon Dioxide 23 mmol/L (22-29); Chloride 102 mmol/L (98-107); Globulin 2.4 g/dL (1.3-4.6); Glucose 226 mg/dL (65-115); Osmolality Calculated 297 mOsm/kg (285-295); Sodium 137 mmol/L (136-145); Total Bilirubin 0.8 mg/dL (0.15-1.2); Total Protein 5.9 g/dL (6.6-8.7)
[2021-03-19 17:48] LABS: Anion Gap 16.8 (5-19); Potassium 4.8 mmol/L (3.5-5.1)
== END 2021-03-19 19:00 | disposition home or self-care (01) ==
PROVIDERS: Emergency Provider Emergency Medicine; PCP Family Medicine
DX: M54.9 Dorsalgia, unspecified (principal); R10.9 Unspecified abdominal pain; Z79.01 Long term (current) use of anticoagulants; Z79.4 Long term (current) use of insulin; E11.22 Type 2 diabetes mellitus with diabetic chronic kidney disease; I12.0 Hypertensive chronic kidney disease with stage 5 chronic kidney disease or end stage renal disease; N18.6 End stage renal disease; E78.5 Hyperlipidemia, unspecified; I25.2 Old myocardial infarction; Z95.1 Presence of aortocoronary bypass graft; Z89.519 Acquired absence of unspecified leg below knee; Z94.0 Kidney transplant status; Z87.891 Personal history of nicotine dependence; Z23 Encounter for immunization
CPT/HCPCS: 70450; 72125; 74177; 80053; 85025; 85610; 85730; 90471; 90714; 93005; 99283; Q9967

== ENCOUNTER → 2021-03-23 09:37 | Outpatient (BNVA) | payer MEDICARE, OTHER, SELFPAY | PROVIDERS: PCP Family Medicine; Visit Provider Family Medicine | DX: Z94.0 Kidney transplant status (principal); E78.5 Hyperlipidemia, unspecified | CPT/HCPCS: 80197; 83036 ==

== ENCOUNTER → 2021-04-18 09:37 | Outpatient (BNVA) | payer MEDICARE, OTHER, SELFPAY | PROVIDERS: PCP Family Medicine; Visit Provider Internal Medicine Nephrology | DX: Z94.0 Kidney transplant status (principal) | CPT/HCPCS: 80053; 80197; 81000; 82310; 82570; 83735; 83970; 84156; 84550; 85025 ==

== ENCOUNTER 2021-05-25 15:19 | Emergency (ER) | payer MEDICARE, OTHER, SELFPAY ==
[2021-05-25 15:35] VITALS: BP 132/66; PULSE 80; RESP 16; TEMP 36.8; O2SAT 97
--- NOTE | 2021-05-25 15:41 | XR_ITS ---
WS: [id number] Portable AP upright chest, 05/25/2021 Clinical Data: chest pain Comparison: Portable chest, 09/27/2020. Findings: No nodules, masses or effusions are seen. The heart is normal. The pulmonary vascularity is not increased. No pneumonia or pneumothorax is seen. The previously noted patchy pulmonary opacities have almost totally cleared. There is only a small residual. The aortic arch and descending aorta ar e tortuous. There are midline sternotomy sutures. XR/XR chest 1V portable [id number] Impression: 1. Atherosclerosis. 2. Almost total clearing of pulmonary opacities.
--- NOTE | 2021-05-25 16:42 | W.ED.GENADLT ---
Documented by User: Danita Hollingsworth MD 05/25/21 18:11 HPI - General Adult General: Chief complaint: Chest Pain Stated complaint: CP Time Seen by Provider: 05/25/21 16:13 History of Present Illness: HPI narrative: CC: Chest Pain HPI: This is a [75] yo patient hx of L BKA, renal transplant, CABG, HTN, HLD, DM followed by Marija presenting to the ED complaining of acute sudden onset intermittent sharp chest pain x since 10 am after patient found out that he needs biopsy for his ears. Patient tells me he is worried that he may have cancer which caused him to have some chest pain. Patient reports pain is sharp and transient lasting for a few seconds at a time. Patient was seen earlier today by Dr. Dutton from Cardiology in his office for routine evaluation and was told to go see a warp tying machine tender and a primary care doctor for his ear lesion. no associated with shortness of breath, chest pain or dyspnea on exertion. Pain is not tearing in nature and does not radiate to the back. Pain not associated with vomiting or PO intake. Denies any recent sympathomimetic drug use. Patient denies any cough. Denies palpitations, dysphagia, diaphoresis, radiation of pain to bilateral arms, jaw. Denies F/N/V/D. Patient denies any recent immobility, surgery, unilateral leg swelling, or prior PE. Patient denies any orthopnea. Onset: 10am Duration: ongoing for the last 6 hrs Location: home Severity: mild/moderate Review of Systems Narrative: Constitutional: No fever, no chills. HEENT: No vision changes, no sore throat. CV: +chest pain, no palpitations. PULM: No cough, No dyspnea. GI: No abdominal pain, no N/V/D. : No dysuria, no frequency, no hematuria. MSKEL: No arthralgias, no edema. SKIN: No new rashes, no lesions. NEURO: No headache, no focal weakness. HEME: No easy bleeding or bruising. PSYCH: No change in mood or affect. 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) use of opiate analgesic Myocardial infarction Pain management contract signed Paroxysmal atrial fibrillation Sleep apnea SVT (supraventricular tachycardia) Warfarin anticoagulation Surgical History Hx of amputation below knee Hx of CABG Hx of kidney transplant Family History Other CAD (coronary artery disease) Cancer Diabetes Hypertension Social History (Updated 05/25/21 @ 10:23 by Sita Oh RN) Smoking and tobacco status: former smoker Alcohol intake: current Alcohol intake frequency: holidays/special occasions only Adopted: No Caregiver/support person: No Lives independently: No Household members: spouse Marital status: Current occupational status: retired and disabled History of recent travel: No Physical Exam Narrative: EXAM NARRATIVE: Head: Atraumatic, normocephalic Eyes: PERRL, EOMI, conjunctiva without injection ENT: Throat without erythema, lesions or exudate, MMM NECK: Supple, trachea midline, no JVD LUNGS: LCTA CV: RRR, S1,S2, no murmurs, rubs, gallops. 2+ peripheral pulses in UEs ABDOMEN: Soft, nontender, nondistended, BS x4, no rigidity, no guarding, no rebound EXTREMITY: Normal ROM, no pitting edema, no calf tenderness to palpation SKIN: No rash or erythema NEURO: Awake and alert. No focal motor deficits. PSYCH: Normal mood and affect. Course Vital Signs: Vital signs: Vital Signs Temperature 98.2 F 05/25/21 15:35 Pulse Rate 70 05/25/21 20:33 Respiratory Rate 16 05/25/21 20:33 Blood Pressure 152/51 05/25/21 20:33 Pulse Oximetry 95 05/25/21 20:33 MDM - General Adult MDM Narrative: Medical decision making narrative: [75]yo patient w/ hx of CABG, HTN, HLD, DM, renal transplant, L BKA presenting to the ED with evaluation of new onset sharp chest pain lasting f6 hrs. HDS, pulse 2+ radially bilaterally, no signs of fluid overload, AAOx3, neuro exam intact. Given History and Exam today I have no suspicion for ACS, Pneumothorax, Pneumonia, Pulmonary Embolus, Tamponade, Aortic Dissection or other emergent problems as a cause for this presentation. Workup: ECG, CXR, CBC, BMP, Troponin x 2 Interventions: ASA, tylenol Findings: ECG: No overt evidence of STEMI, hyperacute T waves, localizable STD or T wave inversions. No evidence of Brugada?s sign, delta wave, epsilon wave, significantly prolonged QTc, or malignant arrhythmia. No Q waves. [6:00pm] First troponin of 85, pending repeat. Cr of 1.7, rocio lgive 500c of IVF. Case signed out to Dr. Velásquez Lab Data: Labs: Lab Results 05/25/21 05/25/21 05/25/21 16:45 16:45 16:45 WBC 6.9 10^3/uL 10^3/ uL (4.0-10.0) RBC 4.25 10^6/uL 10^6 /uL (4.1-5.3) Hgb 11.5 g/dL L g/dL (11.7-16.6) Hct 36.7 % L % (42.0-52.0) MCV 86.4 fl fl (80-94) MCH 27.1 pg L pg (28.0-34.0) MCHC 31.3 g/dL g/dL (30.0-36.0) RDW 14.5 % % (12.1-15.1) Plt Count 127 10^3/cmm L 10 ^3/cmm (130-400) MPV 10.5 fL H fL (7.4-10.4) Neut % (Auto) 78.1 % % Lymph % (Auto) 11.9 % % [place] % (Auto) 9.6 % % Eos % (Auto) 0.0 % % Baso % (Auto) 0.3 % % Neut # (Auto) 5.36 10^3/uL 10^3 /uL (1.8-7.7) Lymph # (Auto) 0.8 10^3/uL 10^3/ uL (0.8-4.8) [place] # (Auto) 0.7 10^3/uL 10^3/ uL (0.2-0.9) Eos # (Auto) 0.0 10^3/uL 10^3/ uL (0.0-0.8) Baso # (Auto) 0.0 10^3/uL 10^3/ uL (0.0-0.1) Nucleated RBC % (a uto) 0 % % Nucleated RBCs # 0.0 /100WBC /100W BC PT 21.60 SECONDS H S ECONDS (12.1-14.9) INR 1.83 H (0.8-1.2) APTT 41.6 SECONDS H SE CONDS (23.9-36.7) Sodium 139 mmol/L mmol/L (136-145) Potassium 4.8 mmol/L mmol/L (3.5-5.1) Chloride 106 mmol/L mmol/L (98-107) Carbon Dioxide 19 mmol/L L mmol/ L (22-29) Anion Gap 18.8 (5-19) BUN 33 mg/dL H mg/dL (8-23) Creatinine 1.7 mg/dL H mg/dL (0.7-1.2) GFR Calculation Not Reportable Glucose 160 mg/dL H mg/dL (65-115) Calculated Osmolal ity 299 mOsm/kg H mOs m/kg (285-295) Calcium 8.9 mg/dL mg/dL (8.5-10.5) Total Bilirubin 0.7 mg/dL mg/dL (0.15-1.2) AST 9 U/L U/L (0-40) ALT 7 U/L U/L (0-41) Alkaline Phosphata se 79 IU/L IU/L (40-130) Creatine Kinase 55 U/L U/L (39-308) Troponin T Baselin e Troponin T 120 Min [place] Troponin T NT-Pro-B Natriuret Pep 3566 pg/mL H pg/m L (0-125) Total Protein 5.7 g/dL L g/dL (6.6-8.7) Albumin 3.9 g/dL g/dL (3.5-5.2) Globulin 1.8 g/dL g/dL (1.3-4.6) Lipase 17 U/L U/L (13-60) 05/25/21 05/25/21 16:45 18:51 WBC RBC Hgb Hct MCV MCH MCHC RDW Plt Count MPV Neut % (Auto) Lymph % (Auto) [place] % (Auto) Eos % (Auto) Baso % (Auto) Neut # (Auto) Lymph # (Auto) [place] # (Auto) Eos # (Auto) Baso # (Auto) Nucleated RBC % (a uto) Nucleated RBCs # PT INR APTT Sodium Potassium Chloride Carbon Dioxide Anion Gap BUN Creatinine GFR Calculation Glucose Calculated Osmolal ity Calcium Total Bilirubin AST ALT Alkaline Phosphata se Creatine Kinase Troponin T Baselin e 85 ng/L H ng/L (0-15) Troponin T 120 Min [place] 71.95 ng/L H ng/L (0-15) Delta Troponin T -13.05 ABS# L ABS # (0-10) NT-Pro-B Natriuret Pep Total Protein Albumin Globulin Lipase Imaging Data^: Other Imaging: Radiologist's impression: [address] [id number] ReportSigned Patient: Jaya Kidd SrUnit #: [id number]: 1945cct#:[id number]/Sex: 75 / MADM Date: 05/25/21Loc: ERRoom/Bed:Attending Dr: Ordering Provider/Ordering MD: Avelina Judge Date of Service: 05/25/21 Procedure(s): XR chest 1V portable [id number] Accession Number(s): [id number] Report Number: [id number] WS: [id number] Portable AP upright chest, 05/25/2021 Clinical Data: chest pain Comparison: Portable chest, 09/27/2020. Findings: No nodules, masses or effusions are seen. The heart is normal. The pulmonary vascularity is not increased. No pneumonia or pneumothorax is seen. The previously noted patchy pulmonary opacities have almost totally cleared. There is only a small residual. The aortic arch and descending aorta are tortuous. There are midline sternotomy sutures. XR/XR chest 1V portable [id number] Impression: 1. Atherosclerosis. 2. Almost total clearing of pulmonary opacities. Dictated By:Alejandrina Justin MDSigned By:Alejandrina Justin MDSigned Date/Time:05/25/211558DD/ 57 Discharge Plan Discharge Patient Disposition: Home Clinical Impression: Chest pain Condition: Stable Prescriptions: New acetaminophen 500 mg tablet 500 mg PO Q6H PRN (Reason: pain) 5 Days Qty: 20 RF: 0 No Action tacrolimus 1 mg capsule See Rx Instructions .ROUTE .COMPLEX RF: 0 mycophenolate mofetil 250 mg capsule 500 mg PO BID@0900,2100 RF: 0 prednisone 5 mg tablet 5 mg PO DAILY@0900 RF: 0 cholecalciferol (vitamin D3) 3,000 unit tablet 3,000 unit PO DAILY@0900 RF: 0 cetirizine [All Day Allergy (cetirizine)] 10 mg tablet 10 mg PO DAILY PRN (Reason: allergies) RF: 0 aspirin [Adult Low Dose Aspirin] 81 mg tablet,delayed release (DR/EC) 81 mg PO DAILY RF: 0 famotidine 20 mg tablet 20 mg PO DAILY RF: 0 furosemide 20 mg tablet 20 mg PO DAILY PRNRF: 0 warfarin 5 mg tablet See Rx Instructions .ROUTE .COMPLEX Qty: 90 RF: 3 amlodipine 5 mg tablet 10 mg PO DAILY@0900 Qty: 180 RF: 2 hydrochlorothiazide 12.5 mg tablet 25 mg PO DAILY Qty: 90 RF: 2 atorvastatin [Lipitor] 20 mg tablet 20 mg PO BEDTIME@2100 Qty: 90 RF: 1 carvedilol 25 mg tablet 25 mg PO BID Qty: 180 RF: 2 hydralazine 100 mg tablet 100 mg PO TID Qty: 270 RF: 3 insulin aspart U-100 [Novolog U-100 Insulin aspart] 100 unit/mL solution See Rx Instructions .ROUTE .COMPLEX Qty: 10 RF: 6 sodium bicarbonate 650 mg tablet 1,300 mg PO TID@,,21 RF: 0 tamsulosin 0.4 mg capsule 0.4 mg PO BEDTIME@2100 RF: 0 digoxin 125 mcg (0.125 mg) tablet 125 mcg PO DAILY@0900 RF: 0 Lidoderm 5 % adhesive patch,medicated 1 patch topical DAILY Qty: 7 RF: 0 tramadol 50 mg tablet 50 mg PO Q8H PRN (Reason: pain) Qty: 9 RF: 0 Discharge Orders: Discharge ED (Routine); Ordered 05/25/21 Ordered By: Tylor Velásquez Referrals: Mercy Priest MD [Primary Care Provider] - Ha Dutton M.D [Physician] - 4-7 days Discharge Diet: Advance as tolerated Discharge Activity: Resume usual activity Patient Instructions: Chest Pain (ED) Activity Restrictions/Additional Instructions: Come back to the emergency room if your chest pain worsens, have any fever or chills, worsening shortness of breath, worsening exertional lightheadedness, or any new or concerning complaints. 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) use of opiate analgesic Myocardial infarction Pain management contract signed Paroxysmal atrial fibrillation Sleep apnea SVT (supraventricular tachycardia) Warfarin anticoagulation Surgical History Hx of amputation below knee Hx of CABG Hx of kidney transplant Family History Other CAD (coronary artery disease) Cancer Diabetes Hypertension Social History (Updated 05/25/21 @ 10:23 by Sita Oh RN) Smoking and tobacco status: former smoker Alcohol intake: current Alcohol intake frequency: holidays/special occasions only Adopted: No Caregiver/support person: No Lives independently: No Household members: spouse Marital status: Current occupational status: retired and disabled History of recent travel: No Course Vital Signs: Vital signs: Vital Signs Temperature 98.2 F 05/25/21 15:35 Pulse Rate 70 05/25/21 20:33 Respiratory Rate 16 05/25/21 20:33 Blood Pressure 152/51 05/25/21 20:33 Pulse Oximetry 95 05/25/21 20:33 MDM - General Adult MDM Narrative: Medical decision making narrative: 75-year-old gentleman checked out to me by Dr. Hollingsworth at shift change. This gentleman has a history of coronary disease, and had intermittent sharp chest pains today. He has renal insufficiency as well. He has a BUN of 33 and a creatinine of 1.7 which is slightly above his baseline. His EKG did not show acute signs of ST change. His troponin at time 0 was 85. His 2-hour troponin was actually 73. This gentleman is pain-free. He wishes to go home. Dr. Hollingsworth had spoken with his property technician earlier in the day, and the property technician felt that if his troponin did not rise at 2 hours, that he could indeed go home, and follow-up as an outpatient Lab Data: Labs: Lab Results 05/25/21 05/25/21 05/25/21 16:45 16:45 16:45 WBC 6.9 10^3/uL 10^3/ uL (4.0-10.0) RBC 4.25 10^6/uL 10^6 /uL (4.1-5.3) Hgb 11.5 g/dL L g/dL (11.7-16.6) Hct 36.7 % L % (42.0-52.0) MCV 86.4 fl fl (80-94) MCH 27.1 pg L pg (28.0-34.0) MCHC 31.3 g/dL g/dL (30.0-36.0) RDW 14.5 % % (12.1-15.1) Plt Count 127 10^3/cmm L 10 ^3/cmm (130-400) MPV 10.5 fL H fL (7.4-10.4) Neut % (Auto) 78.1 % % Lymph % (Auto) 11.9 % % [place] % (Auto) 9.6 % % Eos % (Auto) 0.0 % % Baso % (Auto) 0.3 % % Neut # (Auto) 5.36 10^3/uL 10^3 /uL (1.8-7.7) Lymph # (Auto) 0.8 10^3/uL 10^3/ uL (0.8-4.8) [place] # (Auto) 0.7 10^3/uL 10^3/ uL (0.2-0.9) Eos # (Auto) 0.0 10^3/uL 10^3/ uL (0.0-0.8) Baso # (Auto) 0.0 10^3/uL 10^3/ uL (0.0-0.1) Nucleated RBC % (a uto) 0 % % Nucleated RBCs # 0.0 /100WBC /100W BC PT 21.60 SECONDS H S ECONDS (12.1-14.9) INR 1.83 H (0.8-1.2) APTT 41.6 SECONDS H SE CONDS (23.9-36.7) Sodium 139 mmol/L mmol/L (136-145) Potassium 4.8 mmol/L mmol/L (3.5-5.1) Chloride 106 mmol/L mmol/L (98-107) Carbon Dioxide 19 mmol/L L mmol/ L (22-29) Anion Gap 18.8 (5-19) BUN 33 mg/dL H mg/dL (8-23) Creatinine 1.7 mg/dL H mg/dL (0.7-1.2) GFR Calculation Not Reportable Glucose 160 mg/dL H mg/dL (65-115) Calculated Osmolal ity 299 mOsm/kg H mOs m/kg (285-295) Calcium 8.9 mg/dL mg/dL (8.5-10.5) Total Bilirubin 0.7 mg/dL mg/dL (0.15-1.2) AST 9 U/L U/L (0-40) ALT 7 U/L U/L (0-41) Alkaline Phosphata se 79 IU/L IU/L (40-130) Creatine Kinase 55 U/L U/L (39-308) Troponin T Baselin e Troponin T 120 Min [place] Troponin T NT-Pro-B Natriuret Pep 3566 pg/mL H pg/m L (0-125) Total Protein 5.7 g/dL L g/dL (6.6-8.7) Albumin 3.9 g/dL g/dL (3.5-5.2) Globulin 1.8 g/dL g/dL (1.3-4.6) Lipase 17 U/L U/L (13-60) 05/25/21 05/25/21 16:45 18:51 WBC RBC Hgb Hct MCV MCH MCHC RDW Plt Count MPV Neut % (Auto) Lymph % (Auto) [place] % (Auto) Eos % (Auto) Baso % (Auto) Neut # (Auto) Lymph # (Auto) [place] # (Auto) Eos # (Auto) Baso # (Auto) Nucleated RBC % (a uto) Nucleated RBCs # PT INR APTT Sodium Potassium Chloride Carbon Dioxide Anion Gap BUN Creatinine GFR Calculation Glucose Calculated Osmolal ity Calcium Total Bilirubin AST ALT Alkaline Phosphata se Creatine Kinase Troponin T Baselin e 85 ng/L H ng/L (0-15) Troponin T 120 Min [place] 71.95 ng/L H ng/L (0-15) Delta Troponin T -13.05 ABS# L ABS # (0-10) NT-Pro-B Natriuret Pep Total Protein Albumin Globulin Lipase Discharge Plan Discharge Patient Disposition: Home Clinical Impression: Chest pain Condition: Stable Prescriptions: New acetaminophen 500 mg tablet 500 mg PO Q6H PRN (Reason: pain) 5 Days Qty: 20 RF: 0 No Action tacrolimus 1 mg capsule See Rx Instructions .ROUTE .COMPLEX RF: 0 mycophenolate mofetil 250 mg capsule 500 mg PO BID@0900,2100 RF: 0 prednisone 5 mg tablet 5 mg PO DAILY@0900 RF: 0 cholecalciferol (vitamin D3) 3,000 unit tablet 3,000 unit PO DAILY@0900 RF: 0 cetirizine [All Day Allergy (cetirizine)] 10 mg tablet 10 mg PO DAILY PRN (Reason: allergies) RF: 0 aspirin [Adult Low Dose Aspirin] 81 mg tablet,delayed release (DR/EC) 81 mg PO DAILY RF: 0 famotidine 20 mg tablet 20 mg PO DAILY RF: 0 furosemide 20 mg tablet 20 mg PO DAILY PRNRF: 0 warfarin 5 mg tablet See Rx Instructions .ROUTE .COMPLEX Qty: 90 RF: 3 amlodipine 5 mg tablet 10 mg PO DAILY@0900 Qty: 180 RF: 2 hydrochlorothiazide 12.5 mg tablet 25 mg PO DAILY Qty: 90 RF: 2 atorvastatin [Lipitor] 20 mg tablet 20 mg PO BEDTIME@2100 Qty: 90 RF: 1 carvedilol 25 mg tablet 25 mg PO BID Qty: 180 RF: 2 hydralazine 100 mg tablet 100 mg PO TID Qty: 270 RF: 3 insulin aspart U-100 [Novolog U-100 Insulin aspart] 100 unit/mL solution See Rx Instructions .ROUTE .COMPLEX Qty: 10 RF: 6 sodium bicarbonate 650 mg tablet 1,300 mg PO TID@09,12, RF: 0 tamsulosin 0.4 mg capsule 0.4 mg PO BEDTIME@2100 RF: 0 digoxin 125 mcg (0.125 mg) tablet 125 mcg PO DAILY@0900 RF: 0 Lidoderm 5 % adhesive patch,medicated 1 patch topical DAILY Qty: 7 RF: 0 tramadol 50 mg tablet 50 mg PO Q8H PRN (Reason: pain) Qty: 9 RF: 0 Discharge Orders: Discharge ED (Routine); Ordered 05/25/21 Ordered By: Tylor Velásquez Referrals: Mercy Priest MD [Primary Care Provider] - Ha Dutton M.D [Physician] - 4-7 days Discharge Diet: Advance as tolerated Discharge Activity: Resume usual activity Patient Instructions: Chest Pain (ED) Activity Restrictions/Additional Instructions: Come back to the emergency room if your chest pain worsens, have any fever or chills, worsening shortness of breath, worsening exertional lightheadedness, or any new or concerning complaints. Coding Level of Care Code ED Ski Instructor for Antionette Fenton
[2021-05-25 16:55] LABS: Basophils % 0.3 %; Hematocrit 36.7 % (42.0-52.0); Hemoglobin 11.5 g/dL (11.7-16.6); Lymphocytes # 0.8 10^3/uL (0.8-4.8); Lymphocytes % 11.9 %; Mean Corpuscular HGB Conc 31.3 g/dL (30.0-36.0); Mean Corpuscular Hemoglobin 27.1 pg (28.0-34.0); Mean Corpuscular Volume 86.4 fl (80-94); Mean Platelet Volume 10.5 fL (7.4-10.4); Monocytes # 0.7 10^3/uL (0.2-0.9); Monocytes % 9.6 %; Neutrophils # 5.36 10^3/uL (1.8-7.7); Neutrophils % 78.1 %; Nucleated Red Blood Cells % 0 %; Platelet Count 127 10^3/cmm (130-400); Red Blood Count 4.25 10^6/uL (4.1-5.3); Red Cell Distribution Width 14.5 % (12.1-15.1); White Blood Count 6.9 10^3/uL (4.0-10.0)
[2021-05-25 17:06] LABS: INR 1.83 (0.8-1.2)
[2021-05-25 17:07] LABS: Partial Thromboplastin Time 41.6 SECONDS (23.9-36.7)
[2021-05-25 17:12] LABS: Alanine Aminotransferase 7 U/L (0-41); Albumin Level 3.9 g/dL (3.5-5.2); Alkaline Phosphatase 79 IU/L (40-130); Aspartate Amino Transferase 9 U/L (0-40); Globulin 1.8 g/dL (1.3-4.6)
[2021-05-25 17:14] LABS: Troponin(5th) Baseline 85 ng/L (0-15)
[2021-05-25 17:35] LABS: Anion Gap 18.8 (5-19); Blood Urea Nitrogen 33 mg/dL (8-23); Calcium 8.9 mg/dL (8.5-10.5); Carbon Dioxide 19 mmol/L (22-29); Glucose 160 mg/dL (65-115); Lipase 17 U/L (13-60); NT Pro B Type Natriuretic Pept 3566 pg/mL (0-125); Osmolality Calculated 299 mOsm/kg (285-295); Total Bilirubin 0.7 mg/dL (0.15-1.2); Total Protein 5.7 g/dL (6.6-8.7)
[2021-05-25 17:36] LABS: Chloride 106 mmol/L (98-107); Creatine Phosphokinase 55 U/L (39-308); Potassium 4.8 mmol/L (3.5-5.1); Sodium 139 mmol/L (136-145)
[2021-05-25] MEDS: aspirin 325 mg Tablet PO (18:11)
[2021-05-25] MEDS: acetaminophen 500 mg Tablet PO (18:11)
[2021-05-25] MEDS: sodium chloride 0.9% 500 ML IV (18:14)
[2021-05-25 19:07] VITALS: BP 150/65; PULSE 61; O2SAT 96
[2021-05-25 19:27] LABS: Troponin 5 2HR 71.95 ng/L (0-15)
[2021-05-25 19:32] LABS: Troponin 5 2HR Delta -13.05 ABS# (0-10)
[2021-05-25 19:59] VITALS: BP 140/57; PULSE 69; O2SAT 96
[2021-05-25 20:33] VITALS: BP 152/51; PULSE 70; RESP 16; O2SAT 95
--- NOTE | 2021-05-29 10:54 | DCPLANNER ---
manager parking had message to schedule an outpatient stress test for patient. manager parking faxed signed order to centralize scheduling, who will call patient with appointment information. manager parking scheduled a follow up appointment for patient with [facility]. manager parking spoke with Latosha, gave clinic patients information. A follow up appointment is scheduled for Saturday, June 05, 2021 at 3:15 with Arely Carmona. manager parking called patient, spoke with his , gave her the appointment information.
--- NOTE | 2021-07-05 06:59 | DCPLANNER ---
Patient had a follow up appointment scheduled for 06.05.21 with [facility] - patient did attend appointment. Patient had a stress test scheduled for 06.29.21 - patient did not attend stress test.
== END 2021-05-25 20:34 | disposition home or self-care (01) ==
PROVIDERS: Physician Assistant; Emergency Provider Emergency Medicine; PCP Family Medicine
DX: R07.9 Chest pain, unspecified (principal); Z79.01 Long term (current) use of anticoagulants; Z79.82 Long term (current) use of aspirin; Z79.4 Long term (current) use of insulin; E78.5 Hyperlipidemia, unspecified; E11.22 Type 2 diabetes mellitus with diabetic chronic kidney disease; I12.0 Hypertensive chronic kidney disease with stage 5 chronic kidney disease or end stage renal disease; N18.6 End stage renal disease; I25.2 Old myocardial infarction; Z95.1 Presence of aortocoronary bypass graft; Z94.0 Kidney transplant status; Z89.519 Acquired absence of unspecified leg below knee; Z87.891 Personal history of nicotine dependence
CPT/HCPCS: 36415; 71045; 80053; 82550; 83690; 83880; 84484; 85025; 85610; 85730; 96360; 99284; J7040

== ENCOUNTER → 2021-06-04 09:48 | Outpatient (BNVA) | payer MEDICARE, OTHER, SELFPAY | PROVIDERS: PCP Family Medicine; Visit Provider Anesthesiology Pain Medicine | DX: M47.816 Spondylosis without myelopathy or radiculopathy, lumbar region (principal); M77.12 Lateral epicondylitis, left elbow; M25.551 Pain in right hip; M25.552 Pain in left hip; Z79.891 Long term (current) use of opiate analgesic | CPT/HCPCS: 99214 ==

== ENCOUNTER → 2021-06-14 12:23 | Outpatient (BNVA) | payer MEDICARE, OTHER, SELFPAY | PROVIDERS: PCP Family Medicine; Visit Provider Anesthesiology Pain Medicine | DX: M47.816 Spondylosis without myelopathy or radiculopathy, lumbar region (principal); Z94.0 Kidney transplant status; Z79.891 Long term (current) use of opiate analgesic | CPT/HCPCS: 64493; 64494; 64495; 80053; 80197; 81003; 82310; 82570; 83735; 83970; 84156; 84550; 85025; J3490 ==

== ENCOUNTER → 2021-07-12 08:54 | Outpatient (BNVA) | payer MEDICARE, OTHER, SELFPAY | PROVIDERS: PCP Family Medicine; Visit Provider Anesthesiology Pain Medicine | DX: E11.29 Type 2 diabetes mellitus with other diabetic kidney complication (principal); M47.816 Spondylosis without myelopathy or radiculopathy, lumbar region; M54.2 Cervicalgia; N18.32 Chronic kidney disease, stage 3b; M77.12 Lateral epicondylitis, left elbow; Z94.0 Kidney transplant status; Z79.891 Long term (current) use of opiate analgesic | CPT/HCPCS: 80053; 80197; 81000; 82043; 82310; 83735; 83970; 84550; 85025; 87086; 99214 ==

== ENCOUNTER → 2021-07-18 12:44 | Outpatient (BNVA) | payer MEDICARE, OTHER, SELFPAY | PROVIDERS: PCP Family Medicine; Visit Provider Anesthesiology Pain Medicine | DX: Z79.891 Long term (current) use of opiate analgesic (principal) | CPT/HCPCS: 64635; 64636; J1030 ==

== ENCOUNTER 2021-07-20 13:09 | Outpatient (CLI) | payer MEDICARE, OTHER, SELFPAY ==
--- NOTE | 2021-07-20 15:15 | XRR_ITS ---
PROCEDURE INFORMATION: Exam: XR Right Foot Exam date and time: 07/20/2021 3:15 PM Age: 76 years old Clinical indication: Condition or disease; Synovial cyst and other: Dm w foot ulcer; Ankle and foot; Right; Additional info: Dm w/foot ulcer TECHNIQUE: Imaging protocol: XR Right foot. Views: 3 or more views. COMPARISON: No relevant prior studies available. FINDINGS: Bones/joints: Post amputation changes through the proximal phalanx of the 5th digit. The residual osseous structures are intact. No irregular osseous erosions. Extensive vascular calcifications of the foot and ankle noted. Soft tissues: Normal. XR/XR foot RT min 3V* [id number] IMPRESSION: No evidence of acute osteomyelitis.
== END 2021-07-20 13:10 | disposition home or self-care (01) ==
LOC: WOUND 15:14 → RAD 15:15
PROVIDERS: PCP Family Medicine; Visit Provider Surgery
DX: E11.621 Type 2 diabetes mellitus with foot ulcer (principal)
CPT/HCPCS: 11042; 73630; 99213

== ENCOUNTER → 2021-07-31 13:37 | Outpatient (BNVA) | payer MEDICARE, OTHER, SELFPAY | PROVIDERS: PCP Family Medicine; Visit Provider Anesthesiology Pain Medicine | DX: Z79.891 Long term (current) use of opiate analgesic (principal); M47.816 Spondylosis without myelopathy or radiculopathy, lumbar region | CPT/HCPCS: 64635; 64636 ==

== ENCOUNTER 2021-08-01 12:24 | Inpatient (IN) | payer MEDICARE, OTHER, SELFPAY ==
[2021-08-01 12:27] VITALS: PULSE 90; RESP 18; TEMP 37; O2SAT 94; BMI 29.4
--- NOTE | 2021-08-01 12:32 | ECG_ITS ---
[facility] Test Date: 2021-08-01 Pat Name: Jaya Kidd Department: Room: Gender: Male Mallet And Die Cutter: : 1945 Requested By: Andrea Mejia Order Number: [id number] Parker MD: Conchita Muhammad M.D. Measurements Intervals [place] Rate: 74 P: ID: QRS: 8 QRSD: 144 T: 28 QT: 354 QTc: 393 Interpretive Statements ATRIAL FIBRILLATION RIGHT BUNDLE BRANCH BLOCK [120+ ms QRS DURATION, UPRIGHT V1, 40+ ms S IN I/aVL/V4/V5/V6] Compared to ECG 03/19/2021 18:24:40 No significant changes Electronically Signed On 08-01-2021 19:22:40 CUSTOMER OPERATIONS MANAGER by Conchita Muhammad M.D. [id number]
--- NOTE | 2021-08-01 12:32 | XR_ITS ---
WS: [id number] PORTABLE CHEST HISTORY: sob COMPARISON: 05/25/2021 Prior median sternotomy. There is mild interstitial thickening throughout both lungs. Scattered bilateral pulmonary opacificat ions. The pulmonary vasculature does appear normal. LEFT costophrenic angle is not included in this e xamination. No effusions. Cardiac size: Mildly enlarged cardiac silhouette. Mediastinum/Aorta: Mildly dilated pulmonary arteries. Mild atherosclerosis aorta. Resection of the distal RIGHT clavicle. Prior fusion hardware in the cervical region. XR/XR chest 1V portable [id number] IMPRESSION: 1. Scattered opacifications throughout both lungs. May be due to pneumonitis, consider Covid pneumonia. 2. No focal pneumonia. 3. Status post CABG. 4. Pulmonary hypertension.
--- NOTE | 2021-08-01 14:32 | ECG_ITS ---
[facility] Test Date: 2021-08-01 Pat Name: Jaya Kidd Department: Room: Gender: Male Personal Lines Advisor: : 1945 Requested By: Andrea Mejia Order Number: [id number] Parker MD: Conchita Muhammad M.D. Measurements Intervals [place] Rate: 79 P: NV: QRS: 17 QRSD: 149 T: 30 QT: 364 QTc: 418 Interpretive Statements ATRIAL FIBRILLATION WITH ABERRANT CONDUCTION OR VENTRICULAR PREMATURE COMPLEXES RIGHT BUNDLE BRANCH BLOCK [120+ ms QRS DURATION, UPRIGHT V1, 40+ ms S IN I/aVL/V4/V5/V6] Compared to ECG 08/01/2021 13:16:56 Ventricular premature complex(es) now present Aberrant conduction of supraventricular beat(s) now present Electronically Signed On 08-01-2021 19:37:35 GENERAL DISTILLERY WORKER by Conchita Muhammad M.D. [id number]
[2021-08-01 14:48] LABS: Basophils % 0.2 %; Eosinophils % 0.2 %; Hematocrit 36.4 % (42.0-52.0); Hemoglobin 11.7 g/dL (11.7-16.6); Lymphocytes # 0.6 10^3/uL (0.8-4.8); Lymphocytes % 11.3 %; Mean Corpuscular HGB Conc 32.1 g/dL (30.0-36.0); Mean Corpuscular Hemoglobin 27.2 pg (28.0-34.0); Mean Corpuscular Volume 84.7 fl (80-94); Mean Platelet Volume 10.4 fL (7.4-10.4); Monocytes # 0.4 10^3/uL (0.2-0.9); Monocytes % 7.6 %; Neutrophils # 4.12 10^3/uL (1.8-7.7); Neutrophils % 80.5 %; Nucleated Red Blood Cells % 0 %; Platelet Count 134 10^3/cmm (130-400); Red Cell Distribution Width 14.3 % (12.1-15.1); White Blood Count 5.1 10^3/uL (4.0-10.0)
[2021-08-01 15:25] LABS: Alanine Aminotransferase 11 U/L (0-41); Albumin Level 3.6 g/dL (3.5-5.2); Alkaline Phosphatase 76 IU/L (40-130); Anion Gap 20.1 (5-19); Aspartate Amino Transferase 27 U/L (0-40); Blood Urea Nitrogen 42 mg/dL (8-23); Calcium 9.8 mg/dL (8.5-10.5); Carbon Dioxide 20 mmol/L (22-29); Chloride 103 mmol/L (98-107); Globulin 2.5 g/dL (1.3-4.6); Glucose 129 mg/dL (65-115); Lipase 13 U/L (13-60); NT Pro B Type Natriuretic Pept 8207 pg/mL (0-125); Osmolality Calculated 298 mOsm/kg (285-295); Potassium 5.1 mmol/L (3.5-5.1); Sodium 138 mmol/L (136-145); Total Bilirubin 0.7 mg/dL (0.15-1.2); Total Protein 6.1 g/dL (6.6-8.7)
[2021-08-01 15:35] LABS: Troponin(5th) Baseline 125 ng/L (0-15)
[2021-08-01 16:49] VITALS: BP 141/59; PULSE 84; RESP 22; O2SAT 92
--- NOTE | 2021-08-01 16:52 | XR_ITS ---
WS: [id number] XR foot RT 2V [id number] REASON FOR EXAM: eval for infection FINDINGS: There is been amputation of the fifth toe distal to the fifth metatarsal. Extensive small vessel calcification the foot indicative of diabetes. There are no bony changes in the fifth metatarsal suspicious for osteomyelitis. 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 No interval change compared to the examination of 07/20/2021. XR/XR foot RT 2V [id number] IMPRESSION: Stable examination post dilatation of the right fifth toe. No findings of osteomyelitis.
--- NOTE | 2021-08-01 17:00 | ED_ITS ---
Documented by User: Danita Hollingsworth MD 08/04/21 08:19 HPI - General Adult General: Chief complaint: Fever Stated complaint: SOB Time Seen by Provider: 08/01/21 15:36 History of Present Illness: 76-year-old male with a history of ESRD on kidney transplant, chronic right foot ulcer, left vraca-siw-yvla amputation, prior history of UTI, diabetes presenting to the emergency room for complaint concerns of cough generalized weakness malaise since Friday. Per patient's , there is concern the patient has been running a fever since Friday. Patient's is concerned the patient has urinary tract infection again. Patient denies any urinary symptoms, including flank pain, dysuria, polyuria hematuria. No exposure to Covid contact. Patient denies any active chest pain or shortness of breath over the week. Patient denies any nausea/vomiting, abdominal pain. 2 weeks, patient underwent x-ray of the left foot and was not found to have osteomyelitis. Patient has chronic wound care for the left foot wound. Onset:4 days ago Duration:4 days Location:home Severity:moderate Associated symptoms: Reports dyspnea; Deny chest pain, nausea, rash, palpitations or vomiting Review of Systems Const: Denies: fever(s) or chills Eyes: Denies: change in vision ENMT: Denies: mouth pain Card: Denies: chest pain or palpitations Resp: Reports: dyspnea and non-productive cough GI: Denies: abdominal pain, nausea, vomiting or diarrhea : Denies: dysuria Musc: Denies: extremity pain Skin/Breast: Denies: rash or new lesions Neuro: Denies: weakness in extremities Psych: Reports: other (Normal mood) Quoc/Lymph: Denies: easy bruising PFS ED PFSH: Medical History (Updated 08/05/21 @ 10:27 by Angel Souza MD) Aortic root enlargement Arteriovenous fistula of right upper extremity CAD (coronary artery disease) COVID-19 (~09/2020) COVID-19 vaccine administered moderna x 2 doses Diabetes Dyslipidemia 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 Essential hypertension Paroxysmal atrial fibrillation Peripheral artery disease Prostatic enlargement Sleep apnea SVT (supraventricular tachycardia) Warfarin anticoagulation Surgical History (Updated 08/03/21 @ 18:12 by Shannon Ashley MD) History of angioplasty of peripheral vessel (~10/2020) History of arthroscopy of both knees History of cystoscopy History of hand surgery (~2018) right thumb History of neck surgery C6 corpectomy, C5-6, C6-7 anterior discectomy, C5-C7 plate and screw fixati on, C5-C7 fusion History of partial amputation of toe of right foot (~2010) right 5th History of repair of right rotator cuff History of selective injection of anesthetic agent around lumbar nerve root L3,4,5 left and right 05/2021 History of shoulder surgery History of tonsillectomy (~2012) Hx of amputation below knee (~2018) Hx of appendectomy Hx of CABG (~2005) Hx of kidney transplant (~2011) [facility] Other postprocedural status radiofrequency ablation right L2-5 08/2019 radiofrequency ablation right L3-S1 06/2021 radiofrequency ablation left L3- S1 07/2021 Status post epidural steroid injection L4-5 right 11/2019 L3,4,5 left and right 05/2021 Family History Other CAD (coronary artery disease) Cancer Diabetes Hypertension Social History (Updated 08/03/21 @ 18:07 by Shannon Ashley MD) Smoking and tobacco status: never smoked Alcohol intake: current Alcohol intake frequency: holidays/special occasions only Substance/Drug Use: never Adopted: No Household members: spouse Marital status: Current occupational status: retired and disabled Physical Exam Const: COMMON NORMALS: alert HENMT: COMMON NORMALS: atraumatic HEAD & SCALP: atraumatic MOUTH: moist mucous membranes not abnormal Eye: COMMON NORMALS: EOMs intact bilaterally and conjunctivae normal CONJUNCTIVA: Yes conjunctivae normal Neck/C-Spine: COMMON NORMALS: full ROM and supple Resp: COMMON NORMALS: normal respiratory effort OTHER: + Coarse breath sounds bilaterally Cardio: COMMON NORMALS: regular rate RATE: regular rate GI: COMMON NORMALS: Soft to palpation and non-tender PALPATION: Yes Soft to palpation Extremity: COMMON NORMALS: full ROM Neuro: SENSORIUM/ORIENTATION: Yes alert MOTOR EXAM: No Abnormal motor strength present and Other motor observations present (no focal motor deficits) Psych: COMMON NORMALS: speech normal SPEECH: Yes normal speech MOOD & AFFECT: Yes euthymic mood Course Vital Signs: Vital signs: Vital Signs Temperature 98.6 F 08/06/21 08:00 Pulse Rate 70 08/06/21 10:01 Respiratory Rate 19 H 08/06/21 10:01 Blood Pressure 135/56 08/06/21 10:01 Pulse Oximetry 98 08/06/21 10:01 [facility] - General Adult Medical Decision Making 76-year-old male with history of ESRD s/p kidney transplant, DM, L AKA, CHF em ergency room with 1 week of generalized weakness, cough, dyspnea and fatigue. Patient on exam, has coarse breath sounds. Troponin appears to elevated at 125 with a delta of 14. Patient is also noted to have [place] 8207. Creatinine appears to be elevated to 2.0 from 1.4- 1.6. Setting of dyspnea, CAD and CKD in the setting of transplant, this is concerning for acute kidney rejection. Patient will need to be transferred to tertiary center for further management and stabilization. Patient is afebrile here in the emergency room, white count within normal limit, x-rays consistent with diffuse patchy infiltrate. His Covid test is negative today. D-dimer appears to be elevated today to 1.27. However given the fact the patient has a single transplant kidney with [facility], decision was made to defer CT at this time for evaluation of PE. Patient is covid positive today. Case was discussed with Dr. DELEON from [facility] transplant team who agreed with the transfer to [facility] for concerns of acute kidney rejection, CHF exacerbation, troponin elevation, and worsening dyspnea. Disposition: Transfer to outside hospital Lab Data : 08/06/21 02:37 08/06/21 06:43 Radiology Impressions Foot X-Ray 08/01/21 16:52 IMPRESSION: Stable examination post dilatation of the right fifth toe. No findings of osteomyelitis. Chest X-Ray 08/03/21 07:44 IMPRESSION: Suspect superimposition of subacute lung process on chronic central lobar emp hysema. This could be pneumonitis or pulmonary edema. Findings are more prominent on the current examination. Laboratory Results WBC 4.2 10^3/uL (4.0-10.0) 08/03/21 08:37 RBC 4.01 10^6/uL (4.1-5.3) L 08/03/21 08:37 Hgb 10.7 g/dL (11.7-16.6) L 08/03/21 08:37 Hct 33.3 % (42.0-52.0) L 08/03/21 08:37 MCV 83.0 fl (80-94) 08/03/21 08:37 MCH 26.7 pg (28.0-34.0) L 08/03/21 08:37 MCHC 32.1 g/dL (30.0-36.0) 08/03/21 08:37 RDW 13.8 % (12.1-15.1) 08/03/21 08:37 Plt Count 129 10^3/cmm (130-400) L 08/03/21 08:37 MPV 10.2 fL (7.4-10.4) 08/03/21 08:37 Neut % (Auto) 73.6 % 08/03/21 08:37 Lymph % (Auto) 16.6 % 08/03/21 08:37 [place] % (Auto) 9.2 % 08/03/21 08:37 Eos % (Auto) 0.2 % 08/03/21 08:37 Baso % (Auto) 0.2 % 08/03/21 08:37 Neut # (Auto) 3.05 10^3/uL (1.8-7.7) 08/03/21 08:37 Lymph # (Auto) 0.7 10^3/uL (0.8-4.8) L 08/03/21 08:37 [place] # (Auto) 0.4 10^3/uL (0.2-0.9) 08/03/21 08:37 Eos # (Auto) 0.0 10^3/uL (0.0-0.8) 08/03/21 08:37 Baso # (Auto) 0.0 10^3/uL (0.0-0.1) 08/03/21 08:37 Nucleated RBC % (auto) 0 % 08/03/21 08:37 Nucleated RBCs # 0.0 /100WBC 08/03/21 08:37 PT 30.00 SECONDS (12.1-14.9) H 08/03/21 08:37 INR 2.80 (0.8-1.2) H 08/03/21 08:37 Fibrinogen 551 mg/dL (174-498) H 08/03/21 08:37 D-Dimer 1.19 ug/mIFEU (0-0.59) H 08/01/21 17:23 Specimen Type Arterial 08/03/21 08:17 Sample Site Brachial, left 08/03/21 08:17 ABG pH 7.47 (7.35-7.45) H 08/03/21 08:17 ABG pCO2 31.9 mmHg (35-45) L 08/03/21 08:17 ABG pO2 74.5 mmHg (80.0-100.0) L 08/03/21 08:17 ABG HCO3 23.0 mmol/L (22-26) 08/03/21 08:17 ABG O2 Saturation 95.8 08/03/21 08:17 ABG Base Excess -0.1 mmol/L (-2.0-2.0) 08/03/21 08:17 Kiran Test N/a 08/03/21 08:17 A-a O2 Gradient 14.4 mmHg (5-10) H 08/03/21 08:17 Hematocrit 34.3 % (42-52) L 08/03/21 08:17 Hgb O2 Saturation 94.3 % (95-100) L 08/03/21 08:17 Carboxyhemoglobin 0.8 %THgb (0.4-20.1) 08/03/21 08:17 Methemoglobin 0.7 % (0.4-1.5) 08/03/21 08:17 Total Hemoglobin 11.2 g/dL (14-18) L 08/03/21 08:17 Sodium 135.0 mmol/L (131-143) 08/03/21 08:17 Potassium 4.3 mmol/L (3.5-5.0) 08/03/21 08:17 Glucose 258.0 mg/dL (70-115) H 08/03/21 08:17 O2 Delivery Device Nc 08/03/21 08:17 O2 Liters/Min 3.0 % 08/03/21 08:17 FiO2 32.0 % 08/03/21 08:17 Classifications Officer Cc/Cm ID Amh 08/03/21 08:17 Sodium 135 mmol/L (136-145) L 08/03/21 08:37 Potassium 4.5 mmol/L (3.5-5.1) 08/03/21 08:37 Chloride 100 mmol/L (98-107) 08/03/21 08:37 Carbon Dioxide 21 mmol/L (22-29) L 08/03/21 08:37 Anion Gap 18.5 (5-19) 08/03/21 08:37 BUN 44 mg/dL (8-23) H 08/03/21 08:37 Creatinine 2.0 mg/dL (0.7-1.2) H 08/03/21 08:37 GFR Calculation Not Reportable 08/03/21 08:37 Glucose 267 mg/dL (65-115) H 08/03/21 08:37 POC Glucose 201 mg/dL (70-110) H 08/03/21 18:01 Calculated Osmolality 301 mOsm/kg (285-295) H 08/03/21 08:37 Lactic Acid 1.0 mmol/L (0.5-2.2) 08/03/21 08:37 Calcium 8.6 mg/dL (8.5-10.5) 08/03/21 08:37 Magnesium 1.8 mg/dL (1.7-2.3) 08/03/21 08:37 Ferritin 912 ng/mL (30-400) H 08/03/21 08:37 Total Bilirubin 0.8 mg/dL (0.15-1.2) 08/03/21 08:37 AST 24 U/L (0-40) 08/03/21 08:37 ALT 11 U/L (0-41) 08/03/21 08:37 Alkaline Phosphatase 81 IU/L (40-130) 08/03/21 08:37 Creatine Kinase 111 U/L (39-308) 08/03/21 08:37 Troponin T Gen 5 ng/L 104 ng/L (0-15) H* 08/03/21 08:37 Troponin T Baseline 125 ng/L (0-15) H* 08/01/21 14:38 Troponin T 120 Minute 114.2 ng/L (0-15) H 08/01/21 16:29 Delta Troponin T -10.8 ABS# (0-10) L 08/01/21 16:29 Troponin T Hi Sens 6Hr 97.84 ng/L (0-15) H 08/01/21 20:28 Troponin T Hi Sens 6Hr Delta -27.16 ng/L (0-12) L 08/01/21 20:28 C-Reactive Protein 109.9 mg/L (0.0-4.9) H 08/03/21 08:37 NT-Pro-B Natriuret Pep 33488 pg/mL (0-125) H 08/03/21 08:37 Total Protein 5.1 g/dL (6.6-8.7) L 08/03/21 08:37 Albumin 3.3 g/dL (3.5-5.2) L 08/03/21 08:37 Globulin 1.8 g/dL (1.3-4.6) 08/03/21 08:37 Lipase 13 U/L (13-60) 08/01/21 14:38 Procalcitonin 0.47 ng/mL (0-0.5) 08/03/21 08:37 Urine Color Dark yellow (Yellow) 08/03/21 15:15 Urine Appearance Clear (CLEAR) 08/03/21 15:15 Urine pH 5 (5-7) 08/03/21 15:15 Ur Specific [place] 1.015 (1.005-1.030) 08/03/21 15:15 Urine Protein Neg (Negative) 08/03/21 15:15 Urine Glucose (UA) 1+ (Normal) H 08/03/21 15:15 Urine Ketones Negative (Negative) 08/03/21 15:15 Urine Blood Neg (Negative) 08/03/21 15:15 Urine Nitrate Negative (Negative) 08/03/21 15:15 Urine Bilirubin 1+ (Negative) H 08/03/21 15:15 Urine Urobilinogen 1 mg/dL (Negative) H 08/03/21 15:15 Ur Leukocyte Esterase Negative (Negative) 08/03/21 15:15 Ur Microscopic Indic Cancelled 08/03/21 15:15 Urine RBC None /hpf (0-2) 08/03/21 15:15 Urine WBC 0-4 /hpf (0-5) H 08/03/21 15:15 Ur Squamous Epith Cells 0-4 /hpf (0-5) H 08/03/21 15:15 Amorphous Sediment Not Reportable 08/03/21 15:15 Urine Bacteria 1+ /hpf (NONE) H 08/03/21 15:15 Digoxin 1.3 ng/mL (0.6-1.2) H 08/03/21 08:37 Coronavirus 229E (PCR) Not detected (NOT DETECT) 08/01/21 17:17 SARS-CoV-2 (PCR) Detected (NOT DETECT) A 08/01/21 17:17 SARS-CoV-2 Ag (Rapid) Negative (Negative) 08/01/21 16:53 Imaging Data Other Imaging: Radiologist's impression: [address] [address] XRay Report Signed Patient: Jaya Kidd Unit #: [id number] : 1945 Age/Sex: 76 / M ADM Date: 08/01/21 Loc: ER Room/Bed: Attending Dr: Ordering Provider/Ordering MD: Andrea Mejia Date of Service: 08/01/21 Procedure(s): XR chest 1V portable [id number] Accession Number(s): [id number] Report Number: [id number] WS: [id number] PORTABLE CHEST HISTORY: sob COMPARISON: 05/25/2021 Prior median sternotomy. There is mild interstitial thickening throughout both lungs. Scattered bilateral pulmonary opacifications. The pulmonary vasculature does appear normal. LEFT costophrenic angle is not included in this examination. No effusions. Cardiac size: Mildly enlarged cardiac silhouette. Mediastinum/Aorta: Mildly dilated pulmonary arteries. Mild atherosclerosis aorta. Resection of the distal RIGHT clavicle. Prior fusion hardware in the cervical region. XR/XR chest 1V portable [id number] IMPRESSION: ? 1.? Scattered opacifications throughout both lungs. May be due to pneumonitis, consider Covid pneumonia. 2.? No focal pneumonia. 3.? Status post CABG. 4.? Pulmonary hypertension. ? ? ? 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, Elevated troponin, Acute dyspnea, Generalized weakness, CHF exacerbation Condition: Stable Coding Level of Care Code ED Lead Advisor for Chg Fwd Exam Comprehensive Documented by User: Heath Saavedra DO 08/06/21 15:12 HPI - General Adult General: Chief complaint: Fever Stated complaint: SOB Time Seen by Provider: 08/01/21 15:36 PFSH ED PFSH: Medical History (Updated 08/05/21 @ 10:27 by Angel Souza MD) Aortic root enlargement Arteriovenous fistula of right upper extremity CAD (coronary artery disease) COVID-19 (~09/2020) COVID-19 vaccine administered moderna x 2 doses Diabetes Dyslipidemia 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 Essential hypertension Paroxysmal atrial fibrillation Peripheral artery disease Prostatic enlargement Sleep apnea SVT (supraventricular tachycardia) Warfarin anticoagulation Surgical History (Updated 08/03/21 @ 18:12 by Shannon Ashley MD) History of angioplasty of peripheral vessel (~10/2020) History of arthroscopy of both knees History of cystoscopy History of hand surgery (~2018) right thumb History of neck surgery C6 corpectomy, C5-6, C6-7 anterior discectomy, C5-C7 plate and screw fixation, C5-C7 fusion History of partial amputation of toe of right foot (~2010) right 5th History of repair of right rotator cuff History of selective injection of anesthetic agent around lumbar nerve root L3,4,5 left and right 05/2021 History of shoulder surgery History of tonsillectomy (~2012) Hx of amputation below knee (~2018) Hx of appendectomy Hx of CABG (~2005) Hx of kidney transplant (~2011) [facility] Other postprocedural status radiofrequency ablation right L2-5 08/2019 radiofrequency ablation right L3-S1 06/2021 radiofrequency ablation left L3- S1 07/2021 Status post epidural steroid injection L4-5 right 11/2019 L3,4,5 left and right 05/2021 Family History Other CAD (coronary artery disease) Cancer Diabetes Hypertension Social History (Updated 08/03/21 @ 18:07 by Shannon Ashley MD) Smoking and tobacco status: never smoked Alcohol intake: current Alcohol intake frequency: holidays/special occasions only Substance/Drug Use: never Adopted: No Household members: spouse Marital status: Current occupational status: retired and disabled Course Vital Signs: Vital signs: Vital Signs Temperature 98.6 F 08/06/21 08:00 Pulse Rate 70 08/06/21 10:01 Respiratory Rate 19 H 08/06/21 10:01 Blood Pressure 135/56 08/06/21 10:01 Pulse Oximetry 98 08/06/21 10:01 [facility] - General Adult Medical Decision Making 76-year-old male with history of ESRD s/p kidney transplant, DM, L AKA, CHF emergency room with 1 week of generalized weakness, cough, dyspnea and fatigue. Patient on exam, has coarse breath sounds. Troponin appears to elevated at 125 with a delta of 14. Patient is also noted to [place] 8207. Creatinine appears to be elevated to 2.0 from 1.4- 1.6. Setting of dyspnea, CAD and CKD in the setting of transplant, this is concerning for acute kidney rejection. Patient will need to be transferred to tertiary center for further management and stabilization. Patient is afebrile here in the emergency room, white count within normal limit, x-rays consistent with diffuse patchy infiltrate. His Covid test is negative today. D-dimer appears to be elevated today to 1.27. However given the fact the patient has a single transplant kidney with [facility], decision was made to defer CT at this time for evaluation of PE. Patient is covid positive today. Case was discussed with Dr. DELEON from [facility] transplant team who agreed with the transfer to [facility] for concerns of acute kidney rejection, CHF exacerbation, troponin elevation, and worsening dyspnea. Disposition: Transfer to outside hospital Patient had long wait in the emergency room for bed.Ultimately decided to admit the patient here until transfer could be completed when a bed became available and [place]. Patient would receive more appropriate care on the floor and would not affect the transfer option. Discussed with hospitalist orders written. Lab Data : 08/06/21 02:37 08/06/21 06:43 Radiology Impressions Foot X-Ray 08/01/21 16:52 IMPRESSION: Stable examination post dilatation of the right fifth toe. No findings of osteomyelitis. Chest X-Ray 08/03/21 07:44 IMPRESSION: Suspect superimposition of subacute lung process on chronic central lobar emphysema. This could be pneumonitis or pulmonary edema. Findings are more prominent on the current examination. Laboratory Results WBC 4.2 10^3/uL (4.0-10.0) 08/03/21 08:37 RBC 4.01 10^6/uL (4.1-5.3) L 08/03/21 08:37 Hgb 10.7 g/dL (11.7-16.6) L 08/03/21 08:37 Hct 33.3 % (42.0-52.0) L 08/03/21 08:37 MCV 83.0 fl (80-94) 08/03/21 08:37 MCH 26.7 pg (28.0-34.0) L 08/03/21 08:37 MCHC 32.1 g/dL (30.0-36.0) 08/03/21 08:37 RDW 13.8 % (12.1-15.1) 08/03/21 08:37 Plt Count 129 10^3/cmm (130-400) L 08/03/21 08:37 MPV 10.2 fL (7.4-10.4) 08/03/21 08:37 Neut % (Auto) 73.6 % 08/03/21 08:37 Lymph % (Auto) 16.6 % 08/03/21 08:37 [place] % (Auto) 9.2 % 08/03/21 08:37 Eos % (Auto) 0.2 % 08/03/21 08:37 Baso % (Auto) 0.2 % 08/03/21 08:37 Neut # (Auto) 3.05 10^3/uL (1.8-7.7) 08/03/21 08:37 Lymph # (Auto) 0.7 10^3/uL (0.8-4.8) L 08/03/21 08:37 [place] # (Auto) 0.4 10^3/uL (0.2-0.9) 08/03/21 08:37 Eos # (Auto) 0.0 10^3/uL (0.0-0.8) 08/03/21 08:37 Baso # (Auto) 0.0 10^3/uL (0.0-0.1) 08/03/21 08:37 Nucleated RBC % (auto) 0 % 08/03/21 08:37 Nucleated RBCs # 0.0 /100WBC 08/03/21 08:37 PT 30.00 SECONDS (12.1-14.9) H 08/03/21 08:37 INR 2.80 (0.8-1.2) H 08/03/21 08:37 Fibrinogen 551 mg/dL (174-498) H 08/03/21 08:37 D-Dimer 1.19 ug/mIFEU (0-0.59) H 08/01/21 17:23 Specimen Type Arterial 08/03/21 08:17 Sample Site Brachial, left 08/03/21 08:17 ABG pH 7.47 (7.35-7.45) H 08/03/21 08:17 ABG pCO2 31.9 mmHg (35-45) L 08/03/21 08:17 ABG pO2 74.5 mmHg (80.0-100.0) L 08/03/21 08:17 ABG HCO3 23.0 mmol/L (22-26) 08/03/21 08:17 ABG O2 Saturation 95.8 08/03/21 08:17 ABG Base Excess -0.1 mmol/L (-2.0-2.0) 08/03/21 08:17 Kiran Test N/a 08/03/21 08:17 A-a O2 Gradient 14.4 mmHg (5-10) H 08/03/21 08:17 Hematocrit 34.3 % (42-52) L 08/03/21 08:17 Hgb O2 Saturation 94.3 % (95-100) L 08/03/21 08:17 Carboxyhemoglobin 0.8 %THgb (0.4-20.1) 08/03/21 08:17 Methemoglobin 0.7 % (0.4-1.5) 08/03/21 08:17 Total Hemoglobin 11.2 g/dL (14-18) L 08/03/21 08:17 Sodium 135.0 mmol/L (131-143) 08/03/21 08:17 Potassium 4.3 mmol/L (3.5-5.0) 08/03/21 08:17 Glucose 258.0 mg/dL (70-115) H 08/03/21 08:17 O2 Delivery Device Nc 08/03/21 08:17 O2 Liters/Min 3.0 % 08/03/21 08:17 FiO2 32.0 % 08/03/21 08:17 Classifications Officer Cc/Cm ID Amh 08/03/21 08:17 Sodium 135 mmol/L (136-145) L 08/03/21 08:37 Potassium 4.5 mmol/L (3.5-5.1) 08/03/21 08:37 Chloride 100 mmol/L (98-107) 08/03/21 08:37 Carbon Dioxide 21 mmol/L (22-29) L 08/03/21 08:37 Anion Gap 18.5 (5-19) 08/03/21 08:37 BUN 44 mg/dL (8-23) H 08/03/21 08:37 Creatinine 2.0 mg/dL (0.7-1.2) H 08/03/21 08:37 GFR Calculation Not Reportable 08/03/21 08:37 Glucose 267 mg/dL (65-115) H 08/03/21 08:37 POC Glucose 201 mg/dL (70-110) H 08/03/21 18:01 Calculated Osmolality 301 mOsm/kg (285-295) H 08/03/21 08:37 Lactic Acid 1.0 mmol/L (0.5-2.2) 08/03/21 08:37 Calcium 8.6 mg/dL (8.5-10.5) 08/03/21 08:37 Magnesium 1.8 mg/dL (1.7-2.3) 08/03/21 08:37 Ferritin 912 ng/mL (30-400) H 08/03/21 08:37 Total Bilirubin 0.8 mg/dL (0.15-1.2) 08/03/21 08:37 AST 24 U/L (0-40) 08/03/21 08:37 ALT 11 U/L (0-41) 08/03/21 08:37 Alkaline Phosphatase 81 IU/L (40-130) 08/03/21 08:37 Creatine Kinase 111 U/L (39-308) 08/03/21 08:37 Troponin T Gen 5 ng/L 104 ng/L (0-15) H* 08/03/21 08:37 Troponin T Baseline 125 ng/L (0-15) H* 08/01/21 14:38 Troponin T 120 Minute 114.2 ng/L (0-15) H 08/01/21 16:29 Delta Troponin T -10.8 ABS# (0-10) L 08/01/21 16:29 Troponin T Hi Sens 6Hr 97.84 ng/L (0-15) H 08/01/21 20:28 Troponin T Hi Sens 6Hr Delta -27.16 ng/L (0-12) L 08/01/21 20:28 C-Reactive Protein 109.9 mg/L (0.0-4.9) H 08/03/21 08:37 NT-Pro-B Natriuret Pep 66626 pg/mL (0-125) H 08/03/21 08:37 Total Protein 5.1 g/dL (6.6-8.7) L 08/03/21 08:37 Albumin 3.3 g/dL (3.5-5.2) L 08/03/21 08:37 Globulin 1.8 g/dL (1.3-4.6) 08/03/21 08:37 Lipase 13 U/L (13-60) 08/01/21 14:38 Procalcitonin 0.47 ng/mL (0-0.5) 08/03/21 08:37 Urine Color Dark yellow (Yellow) 08/03/21 15:15 Urine Appearance Clear (CLEAR) 08/03/21 15:15 Urine pH 5 (5-7) 08/03/21 15:15 Ur Specific [place] 1.015 (1.005-1.030) 08/03/21 15:15 Urine Protein Neg (Negative) 08/03/21 15:15 Urine Glucose (UA) 1+ (Normal) H 08/03/21 15:15 Urine Ketones Negative (Negative) 08/03/21 15:15 Urine Blood Neg (Negative) 08/03/21 15:15 Urine Nitrate Negative (Negative) 08/03/21 15:15 Urine Bilirubin 1+ (Negative) H 08/03/21 15:15 Urine Urobilinogen 1 mg/dL (Negative) H 08/03/21 15:15 Ur Leukocyte Esterase Negative (Negative) 08/03/21 15:15 Ur Microscopic Indic Cancelled 08/03/21 15:15 Urine RBC None /hpf (0-2) 08/03/21 15:15 Urine WBC 0-4 /hpf (0-5) H 08/03/21 15:15 Ur Squamous Epith Cells 0-4 /hpf (0-5) H 08/03/21 15:15 Amorphous Sediment Not Reportable 08/03/21 15:15 Urine Bacteria 1+ /hpf (NONE) H 08/03/21 15:15 Digoxin 1.3 ng/mL (0.6-1.2) H 08/03/21 08:37 Coronavirus 229E (PCR) Not detected (NOT DETECT) 08/01/21 17:17 SARS-CoV-2 (PCR) Detected (NOT DETECT) A 08/01/21 17:17 SARS-CoV-2 Ag (Rapid) Negative (Negative) 08/01/21 16:53 Discharge Plan Discharge Patient Disposition: Transfer to ED Admit Provider: Shannon Ashley Clinical Impression: 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
[2021-08-01 17:31] LABS: SARS Covid-2 Antigen Negative (Negative)
[2021-08-01 17:39] LABS: Procalcitonin 0.37 ng/mL (0-0.5)
[2021-08-01 17:52] LABS: D Dimer 1.19 ug/mIFEU (0-0.59)
[2021-08-01 18:01] LABS: Troponin 5 2HR 114.2 ng/L (0-15); Troponin 5 2HR Delta -10.8 ABS# (0-10)
[2021-08-01 18:04] LABS: Add Urine Microscopic? YES; Bilirubin Urine Neg (Negative); Blood Urine 3+ (Negative); Glucose Urine UA Norm (Normal); Ketones Urine Negative (Negative); Leukocyte Esterase Urine Negative (Negative); Nitrate Urine Negative (Negative); Protein Urine Trace (Negative); Urine Appearance Clear (CLEAR); Urine Color Yellow (Yellow); Urobilinogen Urine 1 mg/dL (Negative); pH Urine 5 (5-7)
[2021-08-01 18:05] LABS: RBC Urine >100 /hpf (0-2); Squamous Epithelial Cell Urine RARE /hpf (0-5); WBC Urine 0-4 /hpf (0-5)
[2021-08-01 18:06] LABS: Add Urine Culture? Yes
--- NOTE | 2021-08-01 18:32 | ECG_ITS ---
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 Measurements Intervals Rudy Rate: 75 P: WI: QRS: 30 QRSD: 144 T: 41 QT: 347 QTc: 388 Interpretive Statements ATRIAL FIBRILLATION WITH ABERRANT CONDUCTION OR VENTRICULAR PREMATURE COMPLEXES RIGHT BUNDLE BRANCH BLOCK [120+ ms QRS DURATION, UPRIGHT V1, 40+ ms S IN I/aVL/V4/V5/V6] Compared to ECG 08/01/2021 16:15:31 No significant changes Electronically Signed On 08-01-2021 19:30:55 MANUFACTURING INTERN by Conchita Muhammad M.D. [id number]
[2021-08-01 20:20] LABS: Adenovirus Not Detected (NOT DETECT); Chlamydia Pneumoniae Not Detected (NOT DETECT); Coronavirus 229E,HKU1,NL63,OC4 Not Detected (NOT DETECT); Human Metapneumovirus Not Detected (NOT DETECT); Human Rhinovirus/Enterovirus Not Detected (NOT DETECT); Influenza A Not Detected (NOT DETECT); Influenza A H1 Not Detected (NOT DETECT); Influenza A H1-2009 Not Detected (NOT DETECT); Influenza A H3 Not Detected (NOT DETECT); Influenza B Not Detected (NOT DETECT); Mycoplasma Pneumoniae Not Detected (NOT DETECT); Parainfluenza Virus Type 1 Not Detected (NOT DETECT); Parainfluenza Virus Type 2 Not Detected (NOT DETECT); Parainfluenza Virus Type 3 Not Detected (NOT DETECT); Parainfluenza Virus Type 4 Not Detected (NOT DETECT); Respiratory Syncytial Virus A Not Detected (NOT DETECT); Respiratory Syncytial Virus B Not Detected (NOT DETECT); SARS-COV-2 Detected (NOT DETECT)
[2021-08-01] MEDS: FUROsemide 10 mg/mL SDV 4mL 40 MG IVP (20:29)
[2021-08-01 20:32] VITALS: PULSE 76; RESP 20; TEMP 36.8; O2SAT 92
[2021-08-01 21:18] LABS: Troponin 5 6HR 97.84 ng/L (0-15)
[2021-08-01 23:20] VITALS: BP 174/86; PULSE 85; RESP 22; O2SAT 99
[2021-08-02] VITALS (14 sets, daily range): BP systolic 125–176; BP diastolic 60–85; PULSE 75–98; RESP 14–29; TEMP 37.2; O2SAT 81–98
--- NOTE | 2021-08-02 19:56 | PC.NURSE ---
patient report received patient resting in room awaiting transport. NAD
[2021-08-02 23:15] LABS: Hematocrit 35.2 % (42.0-52.0); Hemoglobin 11.2 g/dL (11.7-16.6); Lymphocytes # 0.8 10^3/uL (0.8-4.8); Lymphocytes % 21.2 %; Mean Corpuscular HGB Conc 31.8 g/dL (30.0-36.0); Mean Corpuscular Hemoglobin 26.5 pg (28.0-34.0); Mean Corpuscular Volume 83.2 fl (80-94); Mean Platelet Volume 10.9 fL (7.4-10.4); Monocytes # 0.3 10^3/uL (0.2-0.9); Monocytes % 8.7 %; Neutrophils % 69.8 %; Nucleated Red Blood Cells % 0 %; Platelet Count 133 10^3/cmm (130-400); Red Blood Count 4.23 10^6/uL (4.1-5.3); Red Cell Distribution Width 13.9 % (12.1-15.1); White Blood Count 3.6 10^3/uL (4.0-10.0)
[2021-08-02 23:43] LABS: Alanine Aminotransferase 10 U/L (0-41); Albumin Level 3.6 g/dL (3.5-5.2); Alkaline Phosphatase 85 IU/L (40-130); Anion Gap 19.6 (5-19); Aspartate Amino Transferase 24 U/L (0-40); Blood Urea Nitrogen 43 mg/dL (8-23); Calcium 8.7 mg/dL (8.5-10.5); Carbon Dioxide 20 mmol/L (22-29); Chloride 100 mmol/L (98-107); Globulin 1.9 g/dL (1.3-4.6); Glucose 260 mg/dL (65-115); Osmolality Calculated 300 mOsm/kg (285-295); Potassium 4.6 mmol/L (3.5-5.1); Sodium 135 mmol/L (136-145); Total Bilirubin 0.9 mg/dL (0.15-1.2); Total Protein 5.5 g/dL (6.6-8.7)
[2021-08-03] VITALS (9 sets, daily range): BP systolic 108–164; BP diastolic 39–71; PULSE 59–93; RESP 12–26; TEMP 36.6; O2SAT 94–98
[2021-08-03 02:11] LABS: Glucose Point of Care 319 mg/dL (70-110)
[2021-08-03 05:07] LABS: Glucose Point of Care 334 mg/dL (70-110)
[2021-08-03 07:24] LABS: Glucose Point of Care 262 mg/dL (70-110)
--- NOTE | 2021-08-03 07:43 | ECG_ITS ---
[facility] Test Date: 2021-08-03 Pat Name: Jaya Kidd Department: Room: Gender: Male Bell Maker: : [id number] Requested By: Heath Delcid Order Number: [id number] Reading MD: TARUN HARMAN Measurements Intervals [place] Rate: 76 P: [place]: QRS: 36 QRSD: 145 T: 24 QT: 359 QTc: 404 Interpretive Statements ATRIAL FIBRILLATION RIGHT BUNDLE BRANCH BLOCK [120+ ms QRS DURATION, UPRIGHT V1, 40+ ms S IN I/aVL/V4/V5/V6] ST DEPRESSION, CONSIDER SUBENDOCARDIAL INJURY [0.1+ mV ST DEPRESSION] Compared to ECG 08/01/2021 19:00:28 ST (T wave) deviation now present Ventricular premature complex(es) no longer present Aberrant conduction of supraventricular beat(s) no longer present Electronically Signed On 08-03-2021 22:55:17 WOOD BLOCK ARTIST by TARUN HARMAN [id number]
--- NOTE | 2021-08-03 07:44 | XR_ITS ---
WS: [id number] XR chest 1V portable [id number] REASON FOR EXAM: dyspnea/cough FINDINGS: Post aortocoronary bypass surgery. Heart at the upper limits of normal in size. Reviewing previous chest chest x-ray from 05/25/2021 as well as the most recent examination of 2 there appears to be an increase in the course interstitial changes throughout both lungs and more a ccentuation of the lucencies throughout the lung parenchyma. There is blunting of the right costophrenic angle on the current study as well as on the previous exa mination of 08/01/2021 however the blunting is not seen on the previous examination of 05/25/2021. The minor fissure is accentuated with fluid. No other interval change or new finding. XR/XR chest 1V portable [id number] IMPRESSION: Suspect superimposition of subacute lung process on chronic central lobar emphy sema. This could be pneumonitis or pulmonary edema. Findings are more prominent on the current examination.
--- NOTE | 2021-08-03 08:06 | PC.NURSE ---
PATIENT ON CONTINUOUS BEDSIDE CARDIAC, BP AND O2 MONITOR.
[2021-08-03 08:28] LABS: ABG PCO2 31.9 mmHg (35-45); ABG PH Result 7.47 (7.35-7.45); Alveolar-Arterial Oxygen Gradi 14.4 mmHg (5-10); Arterial Blood Gas Hematocrit 34.3 % (42-52); Base Excess ABG -0.1 mmol/L (-2.0-2.0); Blood Gas Operator Identificat AMH; Blood Gas Sample Site Brachial, left; Blood Gas Sample Type Arterial; Carboxyhemoglobin 0.8 %THgb (0.4-20.1); HGB O2 Sat 94.3 % (95-100); Methemoglobin 0.7 % (0.4-1.5); Oxygen Device NC; Oxygen Saturation ABG 95.8; PO2 ABG 74.5 mmHg (80.0-100.0); Potassium Level - ABG 4.3 mmol/L (3.5-5.0); Total Hemoglobin 11.2 g/dL (14-18)
[2021-08-03 08:43] LABS: Glucose Point of Care 232 mg/dL (70-110)
[2021-08-03] MEDS: tamsulosin 0.4 mg Capsule PO ×2 (08:43→23:01)
[2021-08-03] MEDS: sodium bicarbonate 650 mg Tablet 1300 MG PO ×3 (08:44→23:00)
[2021-08-03] MEDS: amlodipine 5 mg Tablet PO (08:44)
[2021-08-03] MEDS: warfarin 5 mg Tablet PO (08:44)
[2021-08-03] MEDS: lisinopril 20 mg Tablet 40 MG PO (08:44)
[2021-08-03] MEDS: aspirin 325 mg Tablet 81 MG PO (08:45)
[2021-08-03] MEDS: atorvastatin 40 mg Tablet 20 MG PO (08:45)
[2021-08-03] MEDS: hyDRALAzine 50 mg Tablet PO ×3 (08:45→23:00)
[2021-08-03] MEDS: carvedilol 25 mg Tablet PO (08:45)
[2021-08-03 08:51] LABS: Basophils % 0.2 %; Eosinophils % 0.2 %; Hematocrit 33.3 % (42.0-52.0); Hemoglobin 10.7 g/dL (11.7-16.6); Lymphocytes # 0.7 10^3/uL (0.8-4.8); Lymphocytes % 16.6 %; Mean Corpuscular HGB Conc 32.1 g/dL (30.0-36.0); Mean Corpuscular Hemoglobin 26.7 pg (28.0-34.0); Mean Platelet Volume 10.2 fL (7.4-10.4); Monocytes # 0.4 10^3/uL (0.2-0.9); Monocytes % 9.2 %; Neutrophils # 3.05 10^3/uL (1.8-7.7); Neutrophils % 73.6 %; Nucleated Red Blood Cells % 0 %; Platelet Count 129 10^3/cmm (130-400); Red Blood Count 4.01 10^6/uL (4.1-5.3); Red Cell Distribution Width 13.8 % (12.1-15.1); White Blood Count 4.2 10^3/uL (4.0-10.0)
[2021-08-03] MEDS: insulin lispro 100 unit/1 mL SUBCUT (08:55)
[2021-08-03] MEDS: digoxin 125 mcg Tablet PO (09:07)
[2021-08-03] MEDS: predniSONE 5 mg Tablet PO (09:08)
[2021-08-03 09:14] LABS: Alanine Aminotransferase 11 U/L (0-41); Albumin Level 3.3 g/dL (3.5-5.2); Alkaline Phosphatase 81 IU/L (40-130); Anion Gap 18.5 (5-19); Aspartate Amino Transferase 24 U/L (0-40); Blood Urea Nitrogen 44 mg/dL (8-23); Calcium 8.6 mg/dL (8.5-10.5); Carbon Dioxide 21 mmol/L (22-29); Chloride 100 mmol/L (98-107); Globulin 1.8 g/dL (1.3-4.6); Glucose 267 mg/dL (65-115); Magnesium 1.8 mg/dL (1.7-2.3); Osmolality Calculated 301 mOsm/kg (285-295); Potassium 4.5 mmol/L (3.5-5.1); Sodium 135 mmol/L (136-145); Total Bilirubin 0.8 mg/dL (0.15-1.2); Total Protein 5.1 g/dL (6.6-8.7)
[2021-08-03] MEDS: tacrolimus 0.5 mg Capsule 1 MG PO (09:37)
--- NOTE | 2021-08-03 09:59 | P.CONIM_ITS ---
Providers/Reason For Consult Consulting Physician/Specialty*: Nephrology Reason for Consult*: Eval renal transplant Primary Care Provider: Mercy Priest MD History of Present Illness History of Present Illness Thank you consultation, today had the pleasure reviewing this 76-year-old gentleman for evaluation and management of kidney transplant. He presented to our facility back on 08/01/2021, and has unfortunately had to reside in the emergency room since as there is limited beds on the medical floor. He presented with shortness of breath and was subsequently found to have Covid. Admission chest x-ray demonstrates an increase in coarse interstitial changes throughout both lungs. He is currently oxygenating on 2 L nasal cannula. He had a kidney transplant back in 2010. He is unclear as to the course of his end-stage kidney disease, stating that he was an alcoholic at the time, however, I suspect he did not treat his underlying hypertension and diabetes. He is unaware of his baseline renal function, however, I do see his serum creatinine level of 1.4 on 07/12/2021. For his immunosuppression he takes a combination of tacrolimus 1 mg twice a day, mycophenolate mofetil, 500 mg twice a day, prednisone 5 mg once a day. His last tacrolimus level was on 07/12/2021 was 4.2. He denies any recent changes to his immunosuppressive therapy. Urinalysis performed on admission demonstrates 3+ blood, greater than 100 red blood cells per high-powered field, no white blood cells. He denies bladder outflow obstructive symptoms. He is eating and drinking well. No extremity edema, no other symptoms of hypervolemia. No uremic symptoms. Review of Systems Narrative: ROS - 12 point review of systems completed per HPI and subjective assessment, this includes Constitutional: No weakness, fatigue Respiratory: No SOB on exertion, comfortable at rest CardioVasc: No chest pain, palpitations Gastrointestinal: No nausea, no vomiting Neurological: No seizures, no AMS Derm: No new rashes, lesions or wounds Immunological: No seasonal and no food allergies Medications/Allergies Home Medications Medication Instructions Recorded Confirmed Last Taken Type cetirizine 10 mg tablet (All Day 10 mg PO DAILY@09 09/02/19 08/02/21 11/03/20 History Allergy (cetirizine)) cholecalciferol (vitamin D3) 75 3,000 unit PO DAILY@0900 09/02/19 08/02/21 11/03/20 History mcg (3,000 unit) tablet mycophenolate mofetil 250 mg 500 mg PO BID@0900,2100 09/02/19 08/02/21 11/03/20 History capsule prednisone 5 mg tablet 5 mg PO DAILY@0900 09/02/19 08/02/21 11/03/20 History digoxin 125 mcg (0.125 mg) tablet 125 mcg PO DAILY@0900 11/03/20 08/02/21 0 11/03/20 History sodium bicarbonate 650 mg tablet 1,300 mg PO TID@11/03/20 08/02/21 11/03/20 History tamsulosin 0.4 mg capsule 0.4 mg PO BEDTIME@209911/03/20 08/02/21 11/02/20 History warfarin 5 mg tablet See Rx Instructions .ROUTE 11/29/20 08/02/21 Unknown Rx .COMPLEX #90 tab amlodipine 5 mg tablet 10 mg PO DAILY@0900 #180 tab 12/31/20 08/02/21 Unknown Rx insulin aspart U-100 100 unit/mL See Rx Instructions .ROUTE 05/23/21 08/02/21 Unknown Rx subcutaneous solution (Novolog .COMPLEX #10 ml U-100 Insulin aspart) aspirin 81 mg tablet,delayed 81 mg PO DAILY@05/25/21 08/02/21 Unknown History release (Adult Low Dose Aspirin) famotidine 20 mg tablet 20 mg PO DAILY@05/25/21 08/02/21 Unknown History furosemide 20 mg tablet 20 mg PO DAILY PRN 05/25/21 08/02/21 Unknown History tramadol 50 mg tablet 50 mg PO BID PRN #45 tab 06/04/21 08/02/21 Unknown Rx atorvastatin 20 mg tablet (Lipitor) 20 mg PO BEDTIME@2100 #90 tab 07/16/21 08/02/21 Unknown Rx carvedilol 25 mg tablet 25 mg PO BID@08/02/21 08/02/21 Unknown History hydralazine 100 mg tablet 100 mg PO TID@,08/02/21 08/02/21 Unknown History hydrochlorothiazide 12.5 mg tablet 25 mg PO DAILY@08/02/21 08/02/21 Unknown History lisinopril 40 mg tablet 40 mg PO DAILY@08/02/21 08/02/21 Unknown History tacrolimus 1 mg capsule, 1 mg PO BID@08/02/21 08/02/21 Unknown History immediate-release Allergies Allergy/AdvReac Type Severity Reaction Status Date / Time No Known Allergies Allergy Verified 08/02/21 08:04 Current Medications Generic Name Dose Route Start Last Admin Trade Name Casey PRN Reason Stop Dose Admin Amlodipine Besylate 5 mg 08/03/21 09:00 08/03/21 08:44 Amlodipine 5 Mg Tablet PO 5 mg DAILY GLADIS Administration Aspirin 81 mg 08/03/21 09:00 08/03/21 08:45 Aspirin 325 Mg Tablet PO 81 mg DAILY GLADIS Administration Atorvastatin Calcium 20 mg 08/03/21 09:00 08/03/21 08:45 Atorvastatin 40 Mg Tablet PO 20 mg DAILY GLADIS Administration Carvedilol 25 mg 08/03/21 09:00 08/03/21 08:45 Carvedilol 25 Mg Tablet PO 25 mg BID GLADIS Administration Digoxin 125 mcg 08/03/21 09:00 08/03/21 09:07 Digoxin 125 Mcg Tablet PO 125 mcg DAILY GLADIS Administration Hydralazine HCl 50 mg 08/03/21 09:00 08/03/21 08:45 Hydralazine 50 Mg Tablet PO 50 mg TID GLADIS Administration Insulin Human Lispro 0 unit 08/03/21 08:00 08/03/21 08:55 Insulin Lispro 100 Unit/1 Ml SUBCUT 10 unit WM&BEDTIME GLADIS Administration Protocol Sodium Bicarbonate 1,300 mg 08/03/21 09:00 08/03/21 08:44 Sodium Bicarbonate 650 Mg Tablet PO 1,300 mg TID GLADIS Administration PFSH Acute PFSH: Medical History Aortic root enlargement Diabetes Dyslipidemia End stage renal disease Essential hypertension [facility] (current) use of opiate analgesic Myocardial infarction Pain management contract signed Paroxysmal atrial fibrillation Sleep apnea SVT (supraventricular tachycardia) Warfarin anticoagulation Surgical History Hx of amputation below knee Hx of CABG Hx of kidney transplant Family History Other CAD (coronary artery disease) Cancer Diabetes Hypertension Social History Alcohol intake: current Alcohol intake frequency: holidays/special occasions only Adopted: No Caregiver/support person: No Lives independently: No Household members: spouse Marital status: Current occupational status: retired and disabled History of recent travel: No Vitals/I&O/Wt Last Vital Signs Temp 98.9 F 08/02/21 00:05 Pulse 93 08/03/21 09:07 Resp 24 H 08/03/21 09:01 BP 141/69 08/03/21 09:01 Pulse Ox 94 08/03/21 09:01 Weight last 48 hrs Weight 92.986 kg Physical Exam 2 Narrative: Constitutional: Awake, comfortable HEENT: Wet mucosa, no jvp, non icteric Lungs: Bilaterally clear without discernible wheeze, rales in all lung zones CVS: S1 S2, no murmurs Abdo: Soft, BS ok Ext 4: Minimal edema, peripheral perfusion with no cyanosis Neurological: Grossly non-focal Data : 08/03/21 08:37 08/03/21 08:37 Micro: Microbiology 08/03/21 08:25 Blood Culture - Preliminary Blood SPECIMEN COLLECTED 08/03/21 08:15 Blood Culture - Preliminary Blood SPECIMEN COLLECTED A&P Assessment and plan (1) Hx of kidney transplant: 1. Allograft Creatinine above baseline, unclear etiology, likely related to acute Covid infection. Defer IV hydration at this time as he has a good oral intake. Typically on Lasix at home, hold this for the time being. Serum creatinine slightly improved since yesterday from 2.1 down to 2.0 and not far from his baseline of 1.4 mg/dL. Close monitoring of renal function over the next few days Avoid usual nephrotoxic agents 2. Immunosuppression He did miss his medication over the last 48 hours during his time in the emergency room, this is being resumed, continue home medication dosing. No need to check Prograf level and likely to be low as he did miss a few pills. 3. Hematuria This is new, unclear etiology, will need to have urology evaluate him for this can be done as an outpatient for cystoscopy. We will send urine for cytology. If renal function does get worse, we can evaluate for acute glomerulonephritis but this is less likely. 4. Chemistry Minor noncritical aberration, typically on sodium bicarbonate, continue this therapy. 5. Shortness of breath Symptoms consistent with Covid pneumonitis. Currently on low-dose oxygen. Management per medical team. 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
[2021-08-03 10:57] LABS: Digoxin 1.3 ng/mL (0.6-1.2)
--- NOTE | 2021-08-03 11:40 | P.HP_ITS ---
Providers/Chief Complaint Primary Care Provider: Mercy Priest MD Chief Complaint: SOB History of Present Illness Jaya iKdd Sr is a 76 year old male Medications/Allergies Home Medications Medication Instructions Recorded Confirmed Last Taken Type cetirizine 10 mg tablet (All Day 10 mg PO DAILY@09 09/02/19 08/02/21 11/03/20 History Allergy (cetirizine)) cholecalciferol (vitamin D3) 75 3,000 unit PO DAILY@0900 09/02/19 08/02/21 11/03/20 History mcg (3,000 unit) tablet mycophenolate mofetil 250 mg 500 mg PO BID@0900,2100 09/02/19 08/02/21 11/03/20 History capsule prednisone 5 mg tablet 5 mg PO DAILY@0900 09/02/19 08/02/21 11/03/20 History digoxin 125 mcg (0.125 mg) tablet 125 mcg PO DAILY@0900 11/03/20 08/02/21 11/03/20 History sodium bicarbonate 650 mg tablet 1,300 mg PO TID@11/03/20 08/02/21 11/03/20 History tamsulosin 0.4 mg capsule 0.4 mg PO BEDTIME@209911/03/20 08/02/21 11/02/20 History warfarin 5 mg tablet See Rx Instructions .ROUTE 11/29/20 08/02/21 Unknown Rx .COMPLEX #90 tab amlodipine 5 mg tablet 10 mg PO DAILY@0900 #180 tab 12/31/20 08/02/21 Unknown Rx insulin aspart U-100 100 unit/mL See Rx Instructions .ROUTE 05/23/21 08/02/21 Unknown Rx subcutaneous solution (Novolog .COMPLEX #10 ml U-100 Insulin aspart) aspirin 81 mg tablet,delayed 81 mg PO DAILY@05/25/21 08/02/21 Unknown History release (Adult Low Dose Aspirin) famotidine 20 mg tablet 20 mg PO DAILY@05/25/21 08/02/21 Unknown History furosemide 20 mg tablet 20 mg PO DAILY PRN 05/25/21 08/02/21 Unknown History tramadol 50 mg tablet 50 mg PO BID PRN #45 tab 06/04/21 08/02/21 Unknown Rx atorvastatin 20 mg tablet (Lipitor) 20 mg PO BEDTIME@2100 #90 tab 07/16/21 08/02/21 Unknown Rx carvedilol 25 mg tablet 25 mg PO BID@08/02/21 08/02/21 Unknown History hydralazine 100 mg tablet 100 mg PO TID@,,08/02/21 08/02/21 Unknown History hydrochlorothiazide 12.5 mg tablet 25 mg PO DAILY@08/02/21 08/02/21 Unknown History lisinopril 40 mg tablet 40 mg PO DAILY@08/02/21 08/02/21 Unknown History tacrolimus 1 mg capsule, 1 mg PO BID@08/02/21 08/02/21 Unknown History immediate-release Allergies Allergy/AdvReac Type Severity Reaction Status Date / Time No Known Allergies Allergy Verified 08/02/21 08:04 PFSH Acute PFSH: Medical History Aortic root enlargement Diabetes Dyslipidemia End stage renal disease 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 Myocardial infarction Pain management contract signed Paroxysmal atrial fibrillation Sleep apnea SVT (supraventricular tachycardia) Warfarin anticoagulation Surgical History Hx of amputation below knee Hx of CABG Hx of kidney transplant Family History Other CAD (coronary artery disease) Cancer Diabetes Hypertension Social History Alcohol intake: current Alcohol intake frequency: holidays/special occasions only Adopted: No Caregiver/support person: No Lives independently: No Household members: spouse Marital status: Current occupational status: retired and disabled History of recent travel: No Vitals/I&O/Wt Last Vital Signs Temp 98.9 F 08/02/21 00:05 Pulse 59 L 08/03/21 11:16 Resp 14 08/03/21 11:16 BP 132/52 08/03/21 11:16 Pulse Ox 94 08/03/21 11:16 Weight last 48 hrs Weight 92.986 kg Data : 08/03/21 08:37 08/03/21 08:37 Other Labs: Radiology Impressions Foot X-Ray 08/01/21 16:52 IMPRESSION: Stable examination post dilatation of the right fifth toe. No findings of osteomyelitis. Chest X-Ray 08/03/21 07:44 IMPRESSION: Suspect superimposition of subacute lung process on chronic central lobar emphysema. This could be pneumonitis or pulmonary edema. Findings are more prominent on the current examination. Laboratory Results WBC 4.2 10^3/uL (4.0-10.0) 08/03/21 08:37 RBC 4.01 10^6/uL (4.1-5.3) L 08/03/21 08:37 Hgb 10.7 g/dL (11.7-16.6) L 08/03/21 08:37 Hct 33.3 % (42.0-52.0) L 08/03/21 08:37 MCV 83.0 fl (80-94) 08/03/21 08:37 MCH 26.7 pg (28.0-34.0) L 08/03/21 08:37 MCHC 32.1 g/dL (30.0-36.0) 08/03/21 08:37 RDW 13.8 % (12.1-15.1) 08/03/21 08:37 Plt Count 129 10^3/cmm (130-400) L 08/03/21 08:37 MPV 10.2 fL (7.4-10.4) 08/03/21 08:37 Neut % (Auto) 73.6 % 08/03/21 08:37 Lymph % (Auto) 16.6 % 08/03/21 08:37 [place] % (Auto) 9.2 % 08/03/21 08:37 Eos % (Auto) 0.2 % 08/03/21 08:37 Baso % (Auto) 0.2 % 08/03/21 08:37 Neut # (Auto) 3.05 10^3/uL (1.8-7.7) 08/03/21 08:37 Lymph # (Auto) 0.7 10^3/uL (0.8-4.8) L 08/03/21 08:37 [place] # (Auto) 0.4 10^3/uL (0.2-0.9) 08/03/21 08:37 Eos # (Auto) 0.0 10^3/uL (0.0-0.8) 08/03/21 08:37 Baso # (Auto) 0.0 10^3/uL (0.0-0.1) 08/03/21 08:37 Nucleated RBC % (auto) 0 % 08/03/21 08:37 Nucleated RBCs # 0.0 /100WBC 08/03/21 08:37 PT 30.00 SECONDS (12.1-14.9) H 08/03/21 08:37 INR 2.80 (0.8-1.2) H 08/03/21 08:37 D-Dimer 1.19 ug/mIFEU (0-0.59) H 08/01/21 17:23 Specimen Type Arterial 08/03/21 08:17 Sample Site Brachial, left 08/03/21 08:17 ABG pH 7.47 (7.35-7.45) H 08/03/21 08:17 ABG pCO2 31.9 mmHg (35-45) L 08/03/21 08:17 ABG pO2 74.5 mmHg (80.0-100.0) L 08/03/21 08:17 ABG HCO3 23.0 mmol/L (22-26) 08/03/21 08:17 ABG O2 Saturation 95.8 08/03/21 08:17 ABG Base Excess -0.1 mmol/L (-2.0-2.0) 08/03/21 08:17 Kiran Test N/a 08/03/21 08:17 A-a O2 Gradient 14.4 mmHg (5-10) H 08/03/21 08:17 Hematocrit 34.3 % (42-52) L 08/03/21 08:17 Hgb O2 Saturation 94.3 % (95-100) L 08/03/21 08:17 Carboxyhemoglobin 0.8 %THgb (0.4-20.1) 08/03/21 08:17 Methemoglobin 0.7 % (0.4-1.5) 08/03/21 08:17 Total Hemoglobin 11.2 g/dL (14-18) L 08/03/21 08:17 Sodium 135.0 mmol/L (131-143) 08/03/21 08:17 Potassium 4.3 mmol/L (3.5-5.0) 08/03/21 08:17 Glucose 258.0 mg/dL (70-115) H 08/03/21 08:17 O2 Delivery Device Nc 08/03/21 08:17 O2 Liters/Min 3.0 % 08/03/21 08:17 FiO2 32.0 % 08/03/21 08:17 Filler Block Inserter Remover ID Amh 08/03/21 08:17 Sodium 135 mmol/L (136-145) L 08/03/21 08:37 Potassium 4.5 mmol/L (3.5-5.1) 08/03/21 08:37 Chloride 100 mmol/L (98-107) 08/03/21 08:37 Carbon Dioxide 21 mmol/L (22-29) L 08/03/21 08:37 Anion Gap 18.5 (5-19) 08/03/21 08:37 BUN 44 mg/dL (8-23) H 08/03/21 08:37 Creatinine 2.0 mg/dL (0.7-1.2) H 08/03/21 08:37 GFR Calculation Not Reportable 08/03/21 08:37 Glucose 267 mg/dL (65-115) H 08/03/21 08:37 POC Glucose 232 mg/dL (70-110) H 08/03/21 08:20 Calculated Osmolality 301 mOsm/kg (285-295) H 08/03/21 08:37 Lactic Acid 1.0 mmol/L (0.5-2.2) 08/03/21 08:37 Calcium 8.6 mg/dL (8.5-10.5) 08/03/21 08:37 Magnesium 1.8 mg/dL (1.7-2.3) 08/03/21 08:37 Total Bilirubin 0.8 mg/dL (0.15-1.2) 08/03/21 08:37 AST 24 U/L (0-40) 08/03/21 08:37 ALT 11 U/L (0-41) 08/03/21 08:37 Alkaline Phosphatase 81 IU/L (40-130) 08/03/21 08:37 Troponin T Baseline 125 ng/L (0-15) H* 08/01/21 14:38 Troponin T 120 Minute 114.2 ng/L (0-15) H 08/01/21 16:29 Delta Troponin T -10.8 ABS# (0-10) L 08/01/21 16:29 Troponin T Hi Sens 6Hr 97.84 ng/L (0-15) H 08/01/21 20:28 Troponin T Hi Sens 6Hr Delta -27.16 ng/L (0-12) L 08/01/21 20:28 C-Reactive Protein 127.0 mg/L (0.0-4.9) H 08/01/21 14:38 NT-Pro-B Natriuret Pep 8207 pg/mL (0-125) H 08/01/21 14:38 Total Protein 5.1 g/dL (6.6-8.7) L 08/03/21 08:37 Albumin 3.3 g/dL (3.5-5.2) L 08/03/21 08:37 Globulin 1.8 g/dL (1.3-4.6) 08/03/21 08:37 Lipase 13 U/L (13-60) 08/01/21 14:38 Procalcitonin 0.37 ng/mL (0-0.5) 08/01/21 14:38 Urine Color Yellow (Yellow) 08/01/21 17:17 Urine Appearance Clear (CLEAR) 08/01/21 17:17 Urine pH 5 (5-7) 08/01/21 17:17 Ur Specific Ruth 1.010 (1.005-1.030) 08/01/21 17:17 Urine Protein Trace (Negative) 08/01/21 17:17 Urine Glucose (UA) Norm (Normal) 08/01/21 17:17 Urine Ketones Negative (Negative) 08/01/21 17:17 Urine Blood 3+ (Negative) H 08/01/21 17:17 Urine Nitrate Negative (Negative) 08/01/21 17:17 Urine Bilirubin Neg (Negative) 08/01/21 17:17 Urine Urobilinogen 1 mg/dL (Negative) H 08/01/21 17:17 Ur Leukocyte Esterase Negative (Negative) 08/01/21 17:17 Urine RBC >100 /hpf (0-2) H 08/01/21 17:17 Urine WBC 0-4 /hpf (0-5) H 08/01/21 17:17 Ur Squamous Epith Cells Rare /hpf (0-5) 08/01/21 17:17 Amorphous Sediment Not Reportable 08/01/21 17:17 Urine Bacteria None /hpf (NONE) 08/01/21 17:17 Digoxin 1.3 ng/mL (0.6-1.2) H 08/03/21 08:37 Coronavirus 229E (PCR) Not detected (NOT DETECT) 08/01/21 17:17 SARS-CoV-2 (PCR) Detected (NOT DETECT) A 08/01/21 17:17 SARS-CoV-2 Ag (Rapid) Negative (Negative) 08/01/21 16:53 Micro: Microbiology 08/03/21 08:25 Blood Culture - Preliminary Blood SPECIMEN COLLECTED 08/03/21 08:15 Blood Culture - Preliminary Blood SPECIMEN COLLECTED Coding Level of Care Code 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
[2021-08-03 13:13] LABS: Glucose Point of Care 96 mg/dL (70-110)
--- NOTE | 2021-08-03 13:47 | P.HP_ITS ---
Providers/Chief Complaint Admitting Physician: Shannon Ashley MD Primary Care Provider: Mercy Priest MD Chief Complaint: SOB History of Present Illness Jaya Kidd Sr is a 76 year old male who presented to the emergency room on August 01 with complaint of difficulty breathing. He had a head headache, malaise, productive cough without any blood noted. Denied runny nose, sore throat, loss of taste or smell. He had had some diarrhea but denied any vomiting. Symptoms began initially with fever on Friday. Given the diarrhea and some dysuria, concern was for possibility of urinary tract infection. Work- up in the emergency room ended up revealing positive SARS-CoV-2 PCR along with findings of pneumonitis on chest x-ray. In addition to this patient was noted to have increased creatinine at 2.0 and hematuria on urinalysis. Last creatinine on July 12 was 1.4. He is chronically on tacrolimus, CellCept and prednisone as he is a kidney transplant patient. Concern on August 01 was for acute rejection. Arrangements were made for transfer to [facility] where his kidney transplant was performed back in 2011. Patient has been waiting in the emergency room greater than 48 hours for a bed. Hospitalist were called today for admission here while patient continues to wait for the bed there. In talking with patient's , prior to the onset of fever Mr. Kidd had been having a progressively worsening wound to his right foot. He has a history of previous fifth toe amputation on the right and BKA on the left due to peripheral arterial disease. He had been having increasing lower extremity edema in the right foot. He saw his primary care provider on July 16. At that time, diuretic therapy, which had previously been as needed was scheduled daily to help with the swelling. also reports that creatinine generally runs the range of 1.4-2.0, fluctuating intermittently. Tacrolimus level when last checked was 4.2, just under the usual range. His manager latin is in [place]. At the present time, patient's breathing is better. He continues to require 2 L of oxygen. He denies any chest pain. Has not been up walking around but no dizziness or syncope. He did receive Moderna vaccine x 2 doses and had COVID requiring hospitalization last year inn September. Review of Systems Const: Reports: fever(s) (Now resolved), chills, fatigue and malaise; Denies: body aches Eyes: Denies: change in vision ENMT: Reports: dry mouth; Denies: throat pain or nasal congestion Card: Reports: edema, dyspnea on exertion and orthopnea; Denies: chest pain, palpitations or lightheadedness Resp: Reports: dyspnea, productive cough, non-productive cough, wheezing, change in phlegm color and chest congestion (Improved); Denies: pain on inspiration or hemoptysis GI: Reports: diarrhea; Denies: abdominal pain, nausea, vomiting or hematochezia : Reports: difficulty urinating and urinary frequency Musc: Reports: neck pain (Chronic), back pain (Chronic) and other (Prosthesis to left lower extremity) Skin/Breast: Reports: non-healing lesions (Right foot, has been seen in wound care recently); Denies: pruritus Neuro: Reports: headache(s), numbness in extremities (Neuropathy) and weakness in extremities (More generalized than focal); Denies: confusion or involuntary movements Quoc/Lymph: Reports: easy bruising and other (No recent bleeding) Medications/Allergies Home Medications Medication Instructions Recorded Confirmed Last Taken Type cetirizine 10 mg tablet (All Day 10 mg PO DAILY@09/02/19 08/02/21 11/03/20 History Allergy (cetirizine)) cholecalciferol (vitamin D3) 75 3,000 unit PO DAILY@0909/02/19 08/02/21 11/03/20 History mcg (3,000 unit) tablet mycophenolate mofetil 250 mg 500 mg PO BID@0900,2100 09/02/19 08/02/21 11/03/20 History capsule prednisone 5 mg tablet 5 mg PO DAILY@0900 09/02/19 08/02/21 11/03/20 History digoxin 125 mcg (0.125 mg) tablet 125 mcg PO DAILY@89911/03/20 08/02/21 11/03/20 History sodium bicarbonate 650 mg tablet 1,300 mg PO TID@11/03/20 08/02/21 11/03/20 History tamsulosin 0.4 mg capsule 0.4 mg PO BEDTIME@2100 11/03/20 08/02/21 11/02/20 History warfarin 5 mg tablet See Rx Instructions .ROUTE 11/29/20 08/02/21 Unknown Rx .COMPLEX #90 tab amlodipine 5 mg tablet 10 mg PO DAILY@0900 #180 tab 12/31/20 08/02/21 Unknown Rx insulin aspart U-100 100 unit/mL See Rx Instructions .ROUTE 05/23/21 08/02/21 U nknown Rx subcutaneous solution (Novolog .COMPLEX #10 ml U-100 Insulin aspart) aspirin 81 mg tablet,delayed 81 mg PO DAILY@05/25/21 08/02/21 Unknown History release (Adult Low Dose Aspirin) famotidine 20 mg tablet 20 mg PO DAILY@05/25/21 08/02/21 Unknown History furosemide 20 mg tablet 20 mg PO DAILY PRN 05/25/21 08/02/21 Unknown History tramadol 50 mg tablet 50 mg PO BID PRN #45 tab 06/04/21 08/02/21 Unknown Rx atorvastatin 20 mg tablet (Lipitor) 20 mg PO BEDTIME@2100 #90 tab 07/16/21 08/02/21 Unknown Rx carvedilol 25 mg tablet 25 mg PO BID@08/02/21 08/02/21 Unknown History hydralazine 100 mg tablet 100 mg PO TID@,,08/02/21 08/02/21 Unknown History hydrochlorothiazide 12.5 mg tablet 25 mg PO DAILY@08/02/21 08/02/21 Unknown History lisinopril 40 mg tablet 40 mg PO DAILY@08/02/21 08/02/21 Unknown History tacrolimus 1 mg capsule, 1 mg PO BID@,08/02/21 08/02/21 Unknown History immediate-release Allergies Allergy/AdvReac Type Severity Reaction Status Date / Time No Known Allergies Allergy Verified 08/02/21 08:04 PFSH Acute PFSH: Medical History (Updated 08/03/21 @ 20:21 by Shannon Ashley MD) Aortic root enlargement Arteriovenous fistula of right upper extremity CAD (coronary artery disease) COVID-19 (~09/2020) COVID-19 vaccine administered moderna x 2 doses Diabetes Dyslipidemia 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 Essential hypertension Paroxysmal atrial fibrillation Peripheral artery disease Prostatic enlargement Sleep apnea SVT (supraventricular tachycardia) Warfarin anticoagulation Surgical History (Updated 08/03/21 @ 18:12 by Shannon Ashley MD) History of angioplasty of peripheral vessel (~10/2020) History of arthroscopy of both knees History of cystoscopy History of hand surgery (~2018) right thumb History of neck surgery C6 corpectomy, C5-6, C6-7 anterior discectomy, C5-C7 plate and screw fixation, C5-C7 fusion History of partial amputation of toe of right foot (~2010) right 5th History of repair of right rotator cuff History of selective injection of anesthetic agent around lumbar nerve root L3,4,5 left and right 05/2021 History of shoulder surgery History of tonsillectomy (~2012) Hx of amputation below knee (~2018) Hx of appendectomy Hx of CABG (~2005) Hx of kidney transplant (~2011) [facility] Other postprocedural status radiofrequency ablation right L2-5 08/2019 radiofrequency ablation right L3-S1 06/2021 radiofrequency ablation left L3- S1 07/2021 Status post epidural steroid injection L4-5 right 11/2019 L3,4,5 left and right 05/2021 Family History Other CAD (coronary artery disease) Cancer Diabetes Hypertension Social History (Updated 08/03/21 @ 18:07 by Shannon Ashley MD) Smoking and tobacco status: never smoked Alcohol intake: current Alcohol intake frequency: holidays/special occasions only Substance/Drug Use: never Adopted: No Household members: spouse Marital status: Current occupational status: retired and disabled Vitals/I&O/Wt Last Vital Signs Temp 98.9 F 08/02/21 00:05 Pulse 59 L 08/03/21 11:16 Resp 14 08/03/21 11:16 BP 132/52 08/03/21 11:16 Pulse Ox 94 08/03/21 11:16 Physical Exam Narrative: Constitutional: Awake and alert, sitting up in bed HEENT: Normocephalic, atraumatic, pupils are equally reactive, nasopharynx with some clear rhinorrhea, oropharynx with dry mucous membranes but clear Neck: Evidence of prior fusion, nontender Respiratory: Crackles at both bases, scattered wheeze, no accessory muscle use presently at rest Cardiovascular: Regular rhythm, no murmurs gallops or rubs, no JVD Abdomen: Soft, nontender, positive bowel sounds Extremities: Left BKA, right lower extremity with 1+ pitting edema, no calf tenderness, capillary refill 2 seconds in right foot, no mottling Skin: Eschar formation measuring 10 cm x 2 cm on the lateral aspect of the right foot with mid area having some yellow slough around the edges, no purulence, thin line of surrounding erythema Neuro: Decreased sensation at the right foot, good strength at the right foot, handgrip equal, speech clear with an accident, face symmetric, no abnormal movements Psych: Normal affect Data : 08/03/21 08:37 08/03/21 08:37 Other Labs: Radiology Impressions Foot X-Ray 08/01/21 16:52 IMPRESSION: Stable examination post dilatation of the right fifth toe. No findings of osteomyelitis. Chest X-Ray 08/03/21 07:44 IMPRESSION: Suspect superimposition of subacute lung process on chronic central lobar emphysema. This could be pneumonitis or pulmonary edema. Findings are more promi nent on the current examination. Laboratory Results WBC 4.2 10^3/uL (4.0-10.0) 08/03/21 08:37 RBC 4.01 10^6/uL (4.1-5.3) L 08/03/21 08:37 Hgb 10.7 g/dL (11.7-16.6) L 08/03/21 08:37 Hct 33.3 % (42.0-52.0) L 08/03/21 08:37 MCV 83.0 fl (80-94) 08/03/21 08:37 MCH 26.7 pg (28.0-34.0) L 08/03/21 08:37 MCHC 32.1 g/dL (30.0-36.0) 08/03/21 08:37 RDW 13.8 % (12.1-15.1) 08/03/21 08:37 Plt Count 129 10^3/cmm (130-400) L 08/03/21 08:37 MPV 10.2 fL (7.4-10.4) 08/03/21 08:37 Neut % (Auto) 73.6 % 08/03/21 08:37 Lymph % (Auto) 16.6 % 08/03/21 08:37 Turner % (Auto) 9.2 % 08/03/21 08:37 Eos % (Auto) 0.2 % 08/03/21 08:37 Baso % (Auto) 0.2 % 08/03/21 08:37 Neut # (Auto) 3.05 10^3/uL (1.8-7.7) 08/03/21 08:37 Lymph # (Auto) 0.7 10^3/uL (0.8-4.8) L 08/03/21 08:37 Turner # (Auto) 0.4 10^3/uL (0.2-0.9) 08/03/21 08:37 Eos # (Auto) 0.0 10^3/uL (0.0-0.8) 08/03/21 08:37 Baso # (Auto) 0.0 10^3/uL (0.0-0.1) 08/03/21 08:37 Nucleated RBC % (auto) 0 % 08/03/21 08:37 Nucleated RBCs # 0.0 /100WBC 08/03/21 08:37 PT 30.00 SECONDS (12.1-14.9) H 08/03/21 08:37 INR 2.80 (0.8-1.2) H 08/03/21 08:37 D-Dimer 1.19 ug/mIFEU (0-0.59) H 08/01/21 17:23 Specimen Type Arterial 08/03/21 08:17 Sample Site Brachial, left 08/03/21 08:17 ABG pH 7.47 (7.35-7.45) H 08/03/21 08:17 ABG pCO2 31.9 mmHg (35-45) L 08/03/21 08:17 ABG pO2 74.5 mmHg (80.0-100.0) L 08/03/21 08:17 ABG HCO3 23.0 mmol/L (22-26) 08/03/21 08:17 ABG O2 Saturation 95.8 08/03/21 08:17 ABG Base Excess -0.1 mmol/L (-2.0-2.0) 08/03/21 08:17 Kiran Test N/a 08/03/21 08:17 A-a O2 Gradient 14.4 mmHg (5-10) H 08/03/21 08:17 Hematocrit 34.3 % (42-52) L 08/03/21 08:17 Hgb O2 Saturation 94.3 % (95-100) L 08/03/21 08:17 Carboxyhemoglobin 0.8 %THgb (0.4-20.1) 08/03/21 08:17 Methemoglobin 0.7 % (0.4-1.5) 08/03/21 08:17 Total Hemoglobin 11.2 g/dL (14-18) L 08/03/21 08:17 Sodium 135.0 mmol/L (131-143) 08/03/21 08:17 Potassium 4.3 mmol/L (3.5-5.0) 08/03/21 08:17 Glucose 258.0 mg/dL (70-115) H 08/03/21 08:17 O2 Delivery Device Nc 08/03/21 08:17 O2 Liters/Min 3.0 % 08/03/21 08:17 FiO2 32.0 % 08/03/21 08:17 Compliance Counsel ID Amh 08/03/21 08:17 Sodium 135 mmol/L (136-145) L 08/03/21 08:37 Potassium 4.5 mmol/L (3.5-5.1) 08/03/21 08:37 Chloride 100 mmol/L (98-107) 08/03/21 08:37 Carbon Dioxide 21 mmol/L (22-29) L 08/03/21 08:37 Anion Gap 18.5 (5-19) 08/03/21 08:37 BUN 44 mg/dL (8-23) H 08/03/21 08:37 Creatinine 2.0 mg/dL (0.7-1.2) H 08/03/21 08:37 GFR Calculation Not Reportable 08/03/21 08:37 Glucose 267 mg/dL (65-115) H 08/03/21 08:37 POC Glucose 96 mg/dL (70-110) 08/03/21 13:09 Calculated Osmolality 301 mOsm/kg (285-295) H 08/03/21 08:37 Lactic Acid 1.0 mmol/L (0.5-2.2) 08/03/21 08:37 Calcium 8.6 mg/dL (8.5-10.5) 08/03/21 08:37 Magnesium 1.8 mg/dL (1.7-2.3) 08/03/21 08:37 Total Bilirubin 0.8 mg/dL (0.15-1.2) 08/03/21 08:37 AST 24 U/L (0-40) 08/03/21 08:37 ALT 11 U/L (0-41) 08/03/21 08:37 Alkaline Phosphatase 81 IU/L (40-130) 08/03/21 08:37 Troponin T Baseline 125 ng/L (0-15) H* 08/01/21 14:38 Troponin T 120 Minute 114.2 ng/L (0-15) H 08/01/21 16:29 Delta Troponin T -10.8 ABS# (0-10) L 08/01/21 16:29 Troponin T Hi Sens 6Hr 97.84 ng/L (0-15) H 08/01/21 20:28 Troponin T Hi Sens 6Hr Delta -27.16 ng/L (0-12) L 08/01/21 20:28 C-Reactive Protein 127.0 mg/L (0.0-4.9) H 08/01/21 14:38 NT-Pro-B Natriuret Pep 8207 pg/mL (0-125) H 08/01/21 14:38 Total Protein 5.1 g/dL (6.6-8.7) L 08/03/21 08:37 Albumin 3.3 g/dL (3.5-5.2) L 08/03/21 08:37 Globulin 1.8 g/dL (1.3-4.6) 08/03/21 08:37 Lipase 13 U/L (13-60) 08/01/21 14:38 Procalcitonin 0.37 ng/mL (0-0.5) 08/01/21 14:38 Urine Color Yellow (Yellow) 08/01/21 17:17 Urine Appearance Clear (CLEAR) 08/01/21 17:17 Urine pH 5 (5-7) 08/01/21 17:17 Ur Specific Potter 1.010 (1.005-1.030) 08/01/21 17:17 Urine Protein Trace (Negative) 08/01/21 17:17 Urine Glucose (UA) Norm (Normal) 08/01/21 17:17 Urine Ketones Negative (Negative) 08/01/21 17:17 Urine Blood 3+ (Negative) H 08/01/21 17:17 Urine Nitrate Negative (Negative) 08/01/21 17:17 Urine Bilirubin Neg (Negative) 08/01/21 17:17 Urine Urobilinogen 1 mg/dL (Negative) H 08/01/21 17:17 Ur Leukocyte Esterase Negative (Negative) 08/01/21 17:17 Urine RBC >100 /hpf (0-2) H 08/01/21 17:17 Urine WBC 0-4 /hpf (0-5) H 08/01/21 17:17 Ur Squamous Epith Cells Rare /hpf (0-5) 08/01/21 17:17 Amorphous Sediment Not Reportable 08/01/21 17:17 Urine Bacteria None /hpf (NONE) 08/01/21 17:17 Digoxin 1.3 ng/mL (0.6-1.2) H 08/03/21 08:37 Coronavirus 229E (PCR) Not detected (NOT DETECT) 08/01/21 17:17 SARS-CoV-2 (PCR) Detected (NOT DETECT) A 08/01/21 17:17 SARS-CoV-2 Ag (Rapid) Negative (Negative) 08/01/21 16:53 Laboratory Tests 08/01/21 08/01/21 08/01/21 14:38 14:38 14:38 WBC 5.1 Hgb 11.7 Hct 36.4 L Plt Count 134 Neut # (Auto) 4.12 Lymph # (Auto) 0.6 L D-Dimer 1.19 H Sodium 138 Potassium 5.1 Chloride 103 Carbon Dioxide 20 L Anion Gap 20.1 H BUN 42 H Creatinine 2.0 H Glucose 129 H Calcium 9.8 Total Bilirubin 0.7 AST 27 ALT 11 Alkaline Phosphatase 76 Total Protein 6.1 L Albumin 3.6 Lipase 13 08/01/21 08/01/21 08/01/21 14:38 16:29 17:17 Urine Color Yellow Urine Appearance Clear Urine pH 5 Ur Specific Potter 1.010 Urine Protein Trace Urine Glucose (UA) Norm Urine Ketones Negative Urine Blood 3+ H Urine Nitrate Negative Urine Bilirubin Neg Urine Urobilinogen 1 H Ur Leukocyte Esterase Negative Urine RBC >100 H Urine WBC 0-4 H Ur Squamous Epith Cells Rare Urine Bacteria None Micro: Microbiology 08/03/21 08:25 Blood Culture - Preliminary Blood SPECIMEN COLLECTED 08/03/21 08:15 Blood Culture - Preliminary Blood SPECIMEN COLLECTED Urine culture from 08/01/2021 is no growth to date A&P Assessment and plan (1) COVID-19: Symptom onset around 07/30/2021 with fever Positive Covid PCR on 08/01/2021 Oxygen requirement noted on 08/01/2021 -currently on 2 L by nasal cannula D-dimer was 1.19, no CTA secondary to kidney transplant status, chronically on Coumadin with therapeutic INR Ferritin 912 CRP 127 > 109 CK 111 Procalcitonin 0.47 Blood cultures have been collected Will put on remdesivir monitoring renal function, discussed with patient and his risk and benefits including that we have to monitor his kidney function and the short duration of intended treatment Dexamethasone 6 mg IV daily, hold prednisone which is chronic in the interim and will need to taper back down to 5 mg at completion of therapy Vitamin C, vitamin D and zinc Monitor inflammatory markers Status: Acute (2) Hx of kidney transplant: Transplant in 2011 Baseline creatinine per ranges from 1.4-2.0 generally speaking Some dysuria with microscopic hematuria on urine Recent regular use of diuretic therapy secondary to peripheral edema and diabetic foot wound Appreciate nephrology input Noted patient had both hydrochlorothiazide and Lasix on home medication list; at discharge may need to adjust schedule of medications based on renal function; both presently held Monitor volume status for need to resume some degree of diuresis Hold home lisinopril presently At this point in time my suspicion for acute rejection is low and I think increased BUN and creatinine are probably from increased diuresis in the couple of weeks preceding presentation to the ED. Timing between the labs on July 12 to when the Lasix was started go along with this. COVID is probably also a contributing factor. Will reevaluate renal function tomorrow but if remains stable may not require transfer to transplant center, though will need close follow-up Status: Chronic (3) Long-term use of high-risk medication: Tacrolimus, CellCept and chronic steroids Continue home tacrolimus and CellCept Hold prednisone while on dexamethasone Status: Chronic (4) CAD (coronary artery disease): History of prior coronary artery bypass Elevated troponin with downward trending delta, EKGs at admission without acute ST segment changes and patient denies any episodes of chest pain. Looking back at previous labs troponin is usually in the 70s. With hypoxemia present on admission, feel abnormality likely type II process secondary to COVID and hypoxemia at this time. Clinically improved without complaints of chest pain Elevated BNP with small right effusion and opacities suggestive of pulmonary edema in addition to lower extremity edema Recheck troponin level and EKG Limited echocardiogram to evaluate ejection fraction and right ventricular pressures Continue home aspirin, statin, carvedilol Status: Chronic Qualifiers: Coronary Disease-Associated Artery/Lesion type: bypass graft [place] vs. 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 peripheral arterial disease, neuropathy and chronic kidney disease Sliding scale insulin, monitoring blood sugars while on increased steroids Status: Chronic Qualifiers: Diabetes mellitus type: type 2 Diabetes mellitus intermediate card tender insulin use: with intermediate card tender use Diabetes mellitus complication detail: with peripheral angiopathy without gangrene Diabetes mellitus complication status: with circulatory complication Qualified Code(s): E11.51 - Type 2 diabetes mellitus with diabetic peripheral angiopathy without gangrene; 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 (6) Diabetic ulcer of foot associated with diabetes mellitus due to underlying condition, with fat layer exposed: Has been seen at wound care clinic recently, strip prior fifth digit amputation on same foot and BKA on the left Hydrofera Blue given wet areas of eschar Keep lower extremity elevated Status: Chronic Qualifiers: Diabetic foot ulcer location: midfoot Laterality: right Qualified Code(s): E08.621 - Diabetes mellitus due to underlying condition with foot ulcer; L97.412 - Non-pressure chronic ulcer of right heel and midfoot with fat layer exposed (7) Paroxysmal atrial fibrillation: On chronic digoxin, digoxin level is slightly elevated presently despite not having medicines for couple of days Telemetry monitoring Recheck digoxin level in a couple of days May need to restart it every other day dosing Status: Chronic (8) Warfarin anticoagulation: On Coumadin secondary to atrial fibrillation history with therapeutic INR Continue Coumadin, watch levels over the next couple of days, goal INR 2-3 Status: Chronic (9) Essential hypertension: Chronically on amlodipine, carvedilol, hydralazine, prednisone, hydrochlorothiazide and as needed Lasix; blood pressures here have ranged from 120s to 170s systolic most recently around 110 systolic after resumption of some blood pressure medications today by ED physician Hold amlodipine secondary to peripheral edema as blood pressures allow Hold home lisinopril secondary to increasing creatinine as blood pressures allow Diuretic therapy is currently held secondary to increasing creatinine Continue home carvedilol at usual dosing Home hydralazine was resumed at half usual dosing, will monitor response Status: Chronic Plan History of BPH on chronic Flomax which I will continue Allergies on chronic cetirizine which I will continue Inpatient admission Further plans of care pending results of above Coumadin provides appropriate VTE prophylaxis with therapeutic INR Chronically on Pepcid which is currently adequate for GI prophylaxis at renal dosing Currently anticipate discharge home, possibly with oxygen therapy Given that patient defers to his so much and answering questions and at times does not understand questions asked, if we are able to appropriately accommodated I will approve to stay to participate in patient's care; she has had COVID previously, is vaccinated, is not currently symptomatic or febril e. We reviewed the risk including that she could still potentially get COVID from him. She understands risk including that COVID could be severe disease. Supportive care otherwise Full code Attestations Medical Necessity Statement*: Anticipated stay greater than two midnights in patient with history of kidney transplant on chronic immunosuppressive therapy presenting with difficulty breathing. He was found to be Covid positive. He is requiring 2 L of oxygen presently and other treatment as outlined above. At risk of rapid clinical decline up to and including the possibility of without treatment and intervention. Coding Level of Care Code Acute Systems Checkout Mechanic for [facility] [place] Diagnoses COVID-19 U07.1 Hx of kidney transplant Z94.0 Long-term use of high-risk medication Z79.899 Diabetes E11.51; Z79.4 Diabetes mellitus type: type 2 Diabetes mellitus intermediate card tender insulin use: with half-way use Diabetes mellitus complication detail: with peripheral angiopathy without gangrene Diabetes mellitus complication status: with circulatory complication Paroxysmal atrial fibrillation I48.0 Warfarin anticoagulation Z79.01 CAD (coronary artery disease) I25.810 Coronary Disease-Associated Artery/Lesion type: bypass graft [place] vs. transplanted heart: [place] heart Associated angina: without angina Essential hypertension I10 Diabetic ulcer of foot associated with diabetes mellitus due to underlying condition, with fat layer exposed E08.621; L97.412 Diabetic foot ulcer location: midfoot Laterality: right
[2021-08-03 14:48] LABS: Glucose Point of Care 133 mg/dL (70-110)
[2021-08-03 15:36] LABS: Glucose Urine UA 1+ (Normal); Protein Urine Neg (Negative); Specific Gravity, Urine 1.015 (1.005-1.030); Urine Appearance Clear (CLEAR); Urine Color Dark Yellow (Yellow); pH Urine 5 (5-7)
[2021-08-03 15:37] LABS: Bilirubin Urine 1+ (Negative); Blood Urine Neg (Negative); Ketones Urine Negative (Negative); Leukocyte Esterase Urine Negative (Negative); Nitrate Urine Negative (Negative); Urobilinogen Urine 1 mg/dL (Negative)
[2021-08-03 17:03] LABS: Add Urine Culture? No; Bacteria Urine 1+ /hpf; Squamous Epithelial Cell Urine 0-4 /hpf (0-5); WBC Urine 0-4 /hpf (0-5)
[2021-08-03 17:08] LABS: Fibrinogen 551 mg/dL (174-498)
[2021-08-03 17:44] LABS: NT Pro B Type Natriuretic Pept 11817 pg/mL (0-125); Procalcitonin 0.47 ng/mL (0-0.5)
[2021-08-03 17:55] LABS: C Reactive Protein 109.9 mg/L (0.0-4.9); Creatine Phosphokinase 111 U/L (39-308); Ferritin 912 ng/mL (30-400)
[2021-08-03 18:11] LABS: Troponin T (5th) Once 104 ng/L (0-15)
[2021-08-03] MEDS: dexamethasone 4 mg/mL INJ 6 MG IVP (21:20)
[2021-08-03] MEDS: remdesivir 200 MG in sodium chloride 0.9% (100 ml) 60 ML 100 MG IV (22:57)
[2021-08-03] MEDS: docusate sodium 100 mg Capsule PO (22:59)
[2021-08-03] MEDS: heparin 5,000 unit/mL INJ 1 mL 5000 UNIT SUBCUT (23:00)
[2021-08-04] VITALS (7 sets, daily range): BP systolic 113–149; BP diastolic 44–71; PULSE 60–85; RESP 12–20; TEMP 36.4–36.7; O2SAT 90–97
[2021-08-04 04:39] LABS: Glucose Point of Care 154 mg/dL (70-110)
[2021-08-04 04:39] LABS: Glucose Point of Care 201 mg/dL (70-110)
--- NOTE | 2021-08-04 06:40 | PM.PN ---
Subjective Subjective: Mr. Kidd feels well today with no specific complaints. Not a huge amount of urine output has been recorded, however, he reports passing urine okay. Breathing comfortably on 2 L nasal cannula. No other severe symptoms of Covid at this time. No extremity edema, no other hypervolemic symptoms. Clear urine. Vitals/I&O/Wt Last Vital Signs Temp 97.6 F 08/04/21 04:00 Pulse 74 08/04/21 04:00 Resp 17 08/04/21 04:00 BP 127/56 08/04/21 04:00 Pulse Ox 97 08/04/21 04:00 08/03/21 08/03/21 08/04/21 14:59 22:59 06:59 Intake Total 500 / 500 Balance 500 / 500 Physical Exam Narrative: Constitutional: Awake, comfortable HEENT: Wet mucosa, no jvp, non icteric Lungs: Bilaterally clear without discernible wheeze, rales in all lung zones CVS: S1 S2, no murmurs Abdo: Soft, BS ok Ext 4: Minimal edema, peripheral perfusion with no cyanosis Neurological: Grossly non-focal Data : 08/03/21 08:37 08/03/21 08:37 Micro: Microbiology 08/01/21 17:17 Urine Culture - Preliminary Urine,Clean Catch 08/03/21 08:25 Blood Culture - Preliminary Blood SPECIMEN COLLECTED 08/03/21 08:15 Blood Culture - Preliminary Blood SPECIMEN COLLECTED A&P Assessment and plan (1) Hx of kidney transplant: 1. Allograft Labs pending for today. No reason to suspect renal function getting worse. Defer IV hydration at this time as he has a good oral intake. Typically on Lasix at home, hold this for the time being. On admission, creat from 2.1 down to 2.0 and not far from his baseline of 1.4 mg/dL. Close monitoring of renal function over the next few days Avoid usual nephrotoxic agents 2. Immunosuppression Continue combination CellCept, Prograf and now on IV Decadron. If Covid pneumonitis gets much worse, I will hold the CellCept. 3. Hematuria On admission urinalysis showed microscopic hematuria, however, this was not present on repeat samples. Continue to monitor. May need urology evaluation as an outpatient. 4. Chemistry Pending 5. Shortness of breath Symptoms consistent with Covid pneumonitis. Currently on low-dose oxygen. Management per medical team. Andrea Ibrahim MD Nephrology [phone] Patient seen and examined via telemedicine, with the assistance of the bedside RN > 25 min spent in evaluation and mgmt of patient Status: Chronic Attestations Medical Necessity Statement*: K transplant Coding Level of Care Code Acute Jacquard Loom Fixer for Marcosg Fwd Diagnoses Hx of kidney transplant Z94.0
[2021-08-04 06:41] LABS: Hematocrit 36.5 % (42.0-52.0); Hemoglobin 11.1 g/dL (11.7-16.6); Lymphocytes # 0.4 10^3/uL (0.8-4.8); Lymphocytes % 13.1 %; Mean Corpuscular HGB Conc 30.4 g/dL (30.0-36.0); Mean Corpuscular Hemoglobin 26.4 pg (28.0-34.0); Mean Corpuscular Volume 86.7 fl (80-94); Mean Platelet Volume 10.6 fL (7.4-10.4); Monocytes # 0.1 10^3/uL (0.2-0.9); Monocytes % 2.8 %; Neutrophils # 2.42 10^3/uL (1.8-7.7); Neutrophils % 83.8 %; Nucleated Red Blood Cells % 0 %; Platelet Count 136 10^3/cmm (130-400); Red Blood Count 4.21 10^6/uL (4.1-5.3); Red Cell Distribution Width 13.7 % (12.1-15.1); White Blood Count 2.9 10^3/uL (4.0-10.0)
[2021-08-04 06:42] LABS: Glucose Point of Care 453 mg/dL (70-110)
[2021-08-04 07:21] LABS: INR 3.24 (0.8-1.2)
[2021-08-04] MEDS: heparin 5,000 unit/mL INJ 1 mL 5000 UNIT SUBCUT ×3 (07:36→20:19)
[2021-08-04] MEDS: cetirizine 10 mg Tablet PO (08:05)
[2021-08-04] MEDS: carvedilol 25 mg Tablet PO ×2 (08:05→17:25)
[2021-08-04] MEDS: aspirin 325 mg Tablet 81 MG PO (08:05)
[2021-08-04] MEDS: insulin lispro 100 unit/1 mL SUBCUT ×3 (08:05→17:24)
[2021-08-04] MEDS: sodium bicarbonate 650 mg Tablet 1300 MG PO ×3 (08:06→20:19)
[2021-08-04] MEDS: zinc gluconate 50 mg Tablet PO (08:06)
[2021-08-04] MEDS: cholecalciferol (vitamin D3) 1,000 unit Tablet 2000 UNIT PO (08:06)
[2021-08-04] MEDS: docusate sodium 100 mg Capsule PO ×2 (08:07→17:25)
[2021-08-04] MEDS: atorvastatin 40 mg Tablet 20 MG PO (08:07)
[2021-08-04] MEDS: hyDRALAzine 50 mg Tablet PO ×3 (08:07→20:19)
[2021-08-04] MEDS: famotidine 20 mg Tablet PO (08:07)
[2021-08-04] MEDS: ascorbic acid 500 mg Tablet PO ×2 (08:07→17:25)
[2021-08-04 08:15] LABS: Slide Review Slide Review Perform
[2021-08-04] MEDS: tacrolimus 0.5 mg Capsule 1 MG PO ×2 (08:20→17:25)
[2021-08-04 11:23] LABS: Anion Gap 29.3 (5-19); Blood Urea Nitrogen 73 mg/dL (8-23); C Reactive Protein 74.9 mg/L (0.0-4.9); Calcium 9.4 mg/dL (8.5-10.5); Carbon Dioxide 12 mmol/L (22-29); Chloride 96 mmol/L (98-107); Ferritin 980 ng/mL (30-400); Magnesium 1.9 mg/dL (1.7-2.3); Osmolality Calculated 319 mOsm/kg (285-295); Phosphorus 4.5 mg/dL (2.5-4.5); Potassium 5.3 mmol/L (3.5-5.1); Sodium 132 mmol/L (136-145)
[2021-08-04 11:29] LABS: Glucose 513 mg/dL (65-115)
[2021-08-04 11:53] LABS: Glucose Point of Care 513 mg/dL (70-110)
[2021-08-04 12:08] LABS: Estmated Average Glucose 157; Hemoglobin A1C 7.1 % (4.0-6.0)
[2021-08-04] MEDS: insulin lispro 100 unit/1 mL 15 UNIT SUBCUT ×2 (12:33→17:23)
[2021-08-04] MEDS: lactated ringers 500 ML 999 ML IV (13:23)
--- NOTE | 2021-08-04 15:00 | P.PN_ITS ---
Subjective Subjective: Patient this morning was saturating well on 2 L nasal cannula he did not complain of any chest pain or shortness of breath Endorsing voiding urine Appreciate nephro recommendations Vitals/I&O/Wt Last Vital Signs Temp 97.7 F 08/04/21 12:22 Pulse 61 08/04/21 12:22 Resp 12 08/04/21 12:22 BP 144/60 08/04/21 12:22 Pulse Ox 94 08/04/21 12:22 08/04/21 08/04/21 08/04/21 06:59 14:59 22:59 Intake Total 500 / 500 740 / 740 Output Total 200 / 200 Balance 500 / 500 540 / 540 Physical Exam Narrative: Patient was laying comfortably in his bed Saturating well on 2 L nasal cannula Watching television Awake and alert Fatigue and lethargic Nonfocal neuro exam Was able to follow commands Pleasant and cooperative during my evaluation Clinically does show signs of mild dehydration Active stridor or wheezing EOMI, PERRLA Data : 08/04/21 06:16 08/04/21 10:26 Micro: Microbiology 08/03/21 08:25 Blood Culture - Preliminary Blood NEGATIVE TO DATE 08/03/21 08:15 Blood Culture - Preliminary Blood NEGATIVE TO DATE 08/01/21 17:17 Urine Culture - Preliminary Urine,Clean Catch A&P Assessment and plan (1) Chronic kidney disease: Status: Acute (2) COVID-19: Status: Acute (3) Long-term use of high-risk medication: Status: Chronic (4) Peripheral artery disease: Status: Chronic (5) Generalized weakness: Status: Acute (6) Diabetes: Status: Chronic Qualifiers: Diabetes mellitus type: type 2 Diabetes mellitus long term care pharmacist insulin use: with assisted use Diabetes mellitus complication status: with circulatory complication Diabetes mellitus complication detail: with peripheral angiopathy without gangrene Qualified Code(s): E11.51 - Type 2 diabetes mellitus with dustin betic peripheral angiopathy without gangrene; Z79.4 - detention (current) use of insulin Plan COVID-19 related hypoxia No acute respiratory failure Doing well on 2 L nasal cannula Continue Decadron and remdesivir Closely monitor for worsening of kidney and renal function Immunocompromised Not a candidate of Actemra or baricitinib Chronic kidney disease Immunocompromised Patient takes prednisone at baseline currently on Decadron Appreciate nephro recommendations Creatinine has not worsened significantly A. fib without RVR Continue Coumadin and AV raymond blocking agents Digoxin level can be checked within 48 hours Full code Consistent carb Hyperglycemia given 15 units of insulin NovoLog, will add Lantus, check A1c level Attestations Medical Necessity Statement*: Continue medical management Time Spent in Patient Care: 15mins Coding Level of Care Code Acute Brim Presser for g Fwd Diagnoses Chronic kidney disease N18.9 COVID-19 U07.1 Long-term use of high-risk medication Z79.899 Peripheral artery disease I73.9 Generalized weakness R53.1 Diabetes E11.51; Z79.4 Diabetes mellitus type: type 2 Diabetes mellitus long term care pharmacist insulin use: with assisted use Diabetes mellitus complication status: with circulatory complication Diabetes mellitus complication detail: with peripheral angiopathy without gangrene
[2021-08-04] MEDS: warfarin 2 mg Tablet 4 MG PO (15:47)
[2021-08-04] MEDS: sodium chloride 0.9% 1,000 ML 999 ML IV (16:04)
--- NOTE | 2021-08-04 16:09 | PC.NURSE ---
pt INR was 3.24, pharmacy notified, consult order for dosing review put in by pharmacy. new dose of 4mg warfarin authorized to give as a one time dose. pt is to tentatively take regular dose tomorrow, with consideration of AM lab draws tomorrow.
[2021-08-04 16:47] LABS: Glucose Point of Care 533 mg/dL (70-110)
[2021-08-04] MEDS: remdesivir 100 MG in sodium chloride 0.9% (100 ml) 80 ML IV (17:24)
[2021-08-04 17:27] LABS: Lactate (Lactic Acid level) 1.8 mmol/L (0.5-2.2)
[2021-08-04 17:46] LABS: Ketone (Acetest) Serum Negative (Negative)
[2021-08-04 18:53] LABS: Anion Gap 23.1 (5-19); Blood Urea Nitrogen 80 mg/dL (8-23); Calcium 9.1 mg/dL (8.5-10.5); Carbon Dioxide 14 mmol/L (22-29); Chloride 95 mmol/L (98-107); Glucose 490 mg/dL (65-115); Osmolality Calculated 310 mOsm/kg (285-295); Potassium 5.1 mmol/L (3.5-5.1); Sodium 127 mmol/L (136-145)
[2021-08-04] MEDS: sodium chloride 0.9% 1,000 ML 100 ML IV (20:14)
[2021-08-04] MEDS: tamsulosin 0.4 mg Capsule PO (20:19)
[2021-08-04] MEDS: insulin glargine 100 units/1 mL 10 UNIT SUBCUT (20:19)
--- NOTE | 2021-08-04 20:31 | USCV_ITS ---
Jaya Kidd Age: 76 Gender: M : 1945 Exam Date: 08/04/2021 15:14 Ordering Phys: Shannon Ashley MD Technologist: SOBIA [place] [facility] [place]: [place], FLUID OVERLOAD BP: / HR: Rhythm: Sinus Technical Quality: Adequate MEASUREMENTS (Male / Female) Normal Values FINDINGS Left Ventricle LV systolic function is normal with EF of 55-60% Right Ventricle Grossly normal in size and function Right Atrium Left Atrium LA is severely dilated Mitral Valve Mitral valve is thickened. Aortic Valve Aortic valve is thickened Tricuspid Valve Grossly normal Pulmonic Valve Not visualized Pericardium Normal Aorta Aortic root is enlarged CONCLUSIONS Limited echocardiogram performed to assess LV systolic function LV systolic function is normal with EF of 55-60% LA is severely dilated No gross valvular abnormalities Aortic root is mildly enlarged Ha Dutton MD (Electronically Signed) Final Date: 04 August 2021 20:23 S
[2021-08-04 20:45] LABS: Glucose Point of Care 450 mg/dL (70-110)
[2021-08-04] MEDS: insulin lispro 100 unit/1 mL 10 UNIT SUBCUT (21:01)
[2021-08-04 22:12] LABS: Glucose Point of Care 433 mg/dL (70-110)
[2021-08-05] VITALS (14 sets, daily range): BP systolic 117–151; BP diastolic 49–72; PULSE 57–71; RESP 0–27; TEMP 36.3–36.9; O2SAT 91–96
[2021-08-05] MEDS: heparin 5,000 unit/mL INJ 1 mL 5000 UNIT SUBCUT (04:42)
[2021-08-05] MEDS: sodium chloride 0.9% 1,000 ML 100 ML IV (06:04)
[2021-08-05 06:28] LABS: Glucose Point of Care 481 mg/dL (70-110)
[2021-08-05 06:41] LABS: Hematocrit 36.7 % (42.0-52.0); Hemoglobin 10.6 g/dL (11.7-16.6); Lymphocytes # 0.5 10^3/uL (0.8-4.8); Mean Corpuscular HGB Conc 28.9 g/dL (30.0-36.0); Mean Corpuscular Volume 93.4 fl (80-94); Mean Platelet Volume 11.3 fL (7.4-10.4); Monocytes # 0.4 10^3/uL (0.2-0.9); Monocytes % 5.2 %; Neutrophils # 7.07 10^3/uL (1.8-7.7); Neutrophils % 88.1 %; Nucleated Red Blood Cells % 0 %; Platelet Count 147 10^3/cmm (130-400); Red Blood Count 3.93 10^6/uL (4.1-5.3); Red Cell Distribution Width 13.9 % (12.1-15.1)
[2021-08-05 07:29] LABS: Calcium 7.6 mg/dL (8.5-10.5); Carbon Dioxide 12 mmol/L (22-29); Chloride 96 mmol/L (98-107); Osmolality Calculated 313 mOsm/kg (285-295); Sodium 127 mmol/L (136-145)
[2021-08-05 07:38] LABS: Digoxin 2.1 ng/mL (0.6-1.2)
[2021-08-05 07:47] LABS: INR 7.12 (0.8-1.2)
[2021-08-05 08:04] LABS: Blood Urea Nitrogen 83 mg/dL (8-23); Glucose 526 mg/dL (65-115)
[2021-08-05] MEDS: famotidine 20 mg Tablet PO (08:21)
[2021-08-05] MEDS: zinc gluconate 50 mg Tablet PO (08:21)
[2021-08-05] MEDS: cholecalciferol (vitamin D3) 1,000 unit Tablet 2000 UNIT PO (08:21)
[2021-08-05] MEDS: tacrolimus 0.5 mg Capsule 1 MG PO (08:21)
[2021-08-05] MEDS: carvedilol 25 mg Tablet PO ×2 (08:22→18:13)
[2021-08-05] MEDS: aspirin 325 mg Tablet 81 MG PO (08:22)
[2021-08-05] MEDS: atorvastatin 40 mg Tablet 20 MG PO (08:22)
[2021-08-05] MEDS: cetirizine 10 mg Tablet PO (08:22)
[2021-08-05] MEDS: ascorbic acid 500 mg Tablet PO ×2 (08:23→18:13)
[2021-08-05] MEDS: hyDRALAzine 50 mg Tablet PO (08:23)
[2021-08-05] MEDS: sodium bicarbonate 650 mg Tablet 1300 MG PO (08:23)
[2021-08-05] MEDS: docusate sodium 100 mg Capsule PO (08:23)
[2021-08-05] MEDS: insulin lispro 100 unit/1 mL 10 UNIT SUBCUT (08:23)
[2021-08-05] MEDS: insulin lispro 100 unit/1 mL SUBCUT ×3 (08:24→12:31)
[2021-08-05] MEDS: insulin glargine 100 units/1 mL 10 UNIT SUBCUT (08:27)
--- NOTE | 2021-08-05 08:36 | PM.PN ---
Subjective Subjective: feels better. no n/v/neil/cp. dec sob. states temps improving Medications: Reviewed: Yes Medication Review Details: Current Medications Acetaminophen (Acetaminophen 325 Mg Tablet) 650 mg PO Q6H PRN PRN Reason: Mild/Mod Pain Or Temp >/= 101 Albuterol Sulfate (Albuterol 8 Gm Mdi) 2 puff INHALATION Q4H.RESPIRATORY PRN PRN Reason: SHORTNESS OF BREATH Albuterol/Ipratropium (Ipratropium-Albuterol 3 Ml Neb) 3 ml INHALATION Q4H.RESPIRATORY PRN PRN Reason: SHORTNESS OF BREATH Ascorbic Acid (Ascorbic Acid 500 Mg Tablet) 500 mg PO BID [facility] Last Admin: 08/05/21 08:23 Dose: 500 mg Documented by: Aspirin (Aspirin 325 Mg Tablet) 81 mg PO DAILY [facility] Last Admin: 08/05/21 08:22 Dose: 81 mg Documented by: Atorvastatin Calcium (Atorvastatin 40 Mg Tablet) 20 mg PO DAILY [facility] Last Admin: 08/05/21 08:22 Dose: 20 mg Documented by: Bisacodyl (Bisacodyl 5 Mg Tablet) 10 mg PO DAILY PRN; Protocol PRN Reason: Constipation (see protocol) Carvedilol (Carvedilol 25 Mg Tablet) 25 mg PO BID [facility] Last Admin: 08/05/21 08:22 Dose: 25 mg Documented by: Cetirizine HCl (Cetirizine 10 Mg Tablet) 10 mg PO DAILY@09 [facility] Last Admin: 08/05/21 08:22 Dose: 10 mg Documented by: Dexamethasone (Dexamethasone 4 Mg/Ml Inj) 6 mg IVP Q24H [facility] Last Admin: 08/03/21 21:20 Dose: 6 mg Documented by: Dextrose (Dextrose 50% Syringe 50 Ml) 25 ml IVP ONCE PRN; Protocol PRN Reason: hypoglycemia protocol Dextrose (Dextrose 50% Syringe 50 Ml) 50 ml IVP PRN PRN; Protocol PRN Reason: hypoglycemia protocol Docusate Sodium (Docusate Sodium 100 Mg Capsule) 100 mg PO BID [facility] Last Admin: 08/05/21 08:23 Dose: 100 mg Documented by: Famotidine (Famotidine 20 Mg Tablet) 20 mg PO DAILY@09 [facility] Last Admin: 08/05/21 08:21 Dose: 20 mg Documented by: Glucagon (Glucagon 1 Mg/Ml Inj 1 Ml) 1 mg IM ONCE PRN; Protocol PRN Reason: Adult Acute Hypoglycemia Prot. Heparin Sodium (Porcine) (Heparin 5,000 Unit/Ml Inj 1 Ml) 5,000 unit SUBCUT Q8H [facility] Last Admin: 08/05/21 04:42 Dose: 5,000 unit Documented by: Hydralazine HCl (Hydralazine 50 Mg Tablet) 50 mg PO TID [facility] Last Admin: 08/05/21 08:23 Dose: 50 mg Documented by: Dextrose (D5w) 500 mls @ 100 mls/hr IV ONCE PRN; Protocol PRN Reason: Adult Acute Hypoglycemia Prot Remdesivir 100 mg/ Sodium (Chloride) 80 mls @ 100 mls/hr IV Q24H [facility] Stop: 08/07/21 18:47 Last Infusion: 08/04/21 18:29 Dose: Infused Documented by: Sodium Chloride (Sodium Chloride 0.9%) 1,000 mls @ 100 mls/hr IV .Q10H [facility] Last Admin: 08/05/21 06:04 Dose: 100 mls/hr Documented by: Insulin Glargine (Insulin Glargine 100 Units/1 Ml) 10 unit SUBCUT BEDTIME [facility] Last Admin: 08/04/21 20:19 Dose: 10 unit Documented by: Insulin Human Lispro (Insulin Lispro 100 Unit/1 Ml) 0 unit SUBCUT TIDWM [facility]; Protocol Last Admin: 08/05/21 08:24 Dose: 18 unit Documented by: Insulin Human Lispro (Insulin Lispro 100 Unit/1 Ml) 5 unit SUBCUT AC [facility] Mycophenolate Mofetil (Mycophenolate Mofetil 500 Mg Tablet) 500 mg PO BID [facility] Last Admin: 08/05/21 08:23 Dose: 500 mg Documented by: Ondansetron HCl (Ondansetron 2 Mg/Ml Sdv 2 Ml) 4 mg IVP Q8H PRN PRN Reason: vomiting, or N/V if npo Sodium Bicarbonate (Sodium Bicarbonate 650 Mg Tablet) 1,300 mg PO TID [facility] Last Admin: 08/05/21 08:23 Dose: 1,300 mg Documented by: Tacrolimus (Tacrolimus 0.5 Mg Capsule) 1 mg PO BID [facility] Last Admin: 08/05/21 08:21 Dose: 1 mg Documented by: Tamsulosin HCl (Tamsulosin 0.4 Mg Capsule) 0.4 mg PO BEDTIME@2100 [facility] Last Admin: 08/04/21 20:19 Dose: 0.4 mg Documented by: Tramadol HCl (Tramadol 50 Mg Tablet) 50 mg PO BID PRN PRN Reason: pain Vitamin D (Cholecalciferol (Vitamin D3) 1,000 Unit Tablet) 2,000 unit PO DAILY [facility] Last Admin: 08/05/21 08:21 Dose: 2,000 unit Documented by: Warfarin Sodium (Warfarin 2.5 Mg Tablet) 2.5 mg PO SuFr [facility] Warfarin Sodium (Warfarin 5 Mg Tablet) 5 mg PO MoSa [facility] Warfarin Sodium (Warfarin 7.5 Mg Tablet) 7.5 mg PO Tu [facility] Zinc Gluconate (Zinc Gluconate 50 Mg Tablet) 50 mg PO DAILY [facility] Last Admin: 08/05/21 08:21 Dose: 50 mg Documented by: Vitals/I&O/Wt Last Vital Signs Temp 98.4 F 08/05/21 04:21 Pulse 68 08/05/21 04:21 Resp 18 08/05/21 04:21 BP 130/63 08/05/21 04:21 Pulse Ox 96 08/05/21 04:21 08/04/21 08/05/21 08/05/21 22:59 06:59 14:59 Intake Total 1320 / 2060 983.333 / 3043.333 Output Total 80 / 280 250 / 530 150 / 150 Balance 1240 / 1780 733.333 / 2513.333 -150 / -150 Physical Exam Narrative: comfortable, NARD vss heent- nc/at, eomi neck supple lungs ronchi b/l heart- irre irreg, no rub abd soft, nt, nd, + bs ext no edema neuro a,a, o x 3 Data : 08/05/21 06:18 08/05/21 06:18 Micro: Microbiology 08/01/21 17:17 Urine Culture - Final Urine,Clean Catch 08/03/21 08:25 Blood Culture - Preliminary Blood NEGATIVE TO DATE 08/03/21 08:15 Blood Culture - Preliminary Blood NEGATIVE TO DATE A&P Assessment and plan (1) Hx of kidney transplant: 76 yr old man Renal tx w/ CKD stage 3 - baseline cr 1.4 mg/dl. Pt here w/ COVID-19 pna 1. renal tx w/ CKD stage 3 -pth 147 2. 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 inc AGMA- repeat ua- ketones neg yesterday. Q DKA -bicarb drip -check abg, beta- hydroxybuterate 4. Hematuria On admission urinalysis showed microscopic hematuria, however, this was not present on repeat samples. Continue to monitor. May need urology evaluation as an outpatient. 5. INR 7.12- hold coumadin- may need reversal if needs dialysis 6. hyponatremia from mireille, prerenal, and hyperglycemia Patient seen and examined via telemedicine, with the assistance of the bedside RN > 30 min spent in evaluation and mgmt of patient Status: Chronic Plan see above Attestations Medical Necessity Statement*: mireille, hyperkalemia, Q DKA, covid-19 Time Spent in Patient Care: 16 - 35 minutes (>than 50% of time spent in counselling and/or direct pt care on unit). Coding Level of Care Code Acute Dyehouse Worker for Antionette Fenton Diagnoses Hx of kidney transplant Z94.0
[2021-08-05] MEDS: sodium polystyrene sulfonate 15 gm/60 mL Btl 30 GM PO (09:06)
[2021-08-05] MEDS: sodium chloride 0.9% 500 ML 999 ML IV (09:09)
[2021-08-05 09:28] LABS: ABG PCO2 28.6 mmHg (35-45); ABG PH Result 7.39 (7.35-7.45); Alveolar-Arterial Oxygen Gradi 10.1 mmHg (5-10); Arterial Blood Gas Hematocrit 33.7 % (42-52); Base Excess ABG -6.8 mmol/L (-2.0-2.0); Blood Gas Allen Test Pos; Blood Gas Operator Identificat MONRO; Blood Gas Sample Site Brachial, left; Blood Gas Sample Type Arterial; Carboxyhemoglobin 0.6 %THgb (0.4-20.1); HCO3 ABG 17.2 mmol/L (22-26); Ionized Calcium Level - ABG 1.2 mmol/L (1.1-1.4); Methemoglobin 1.2 % (0.4-1.5); Oxygen Device NC; Oxygen Saturation ABG 96.8; PO2 ABG 86.6 mmHg (80.0-100.0); Potassium Level - ABG 4.8 mmol/L (3.5-5.0)
[2021-08-05 09:31] LABS: Ketone (Acetest) Serum Positive (Negative)
--- NOTE | 2021-08-05 10:24 | PM.PN ---
Subjective Subjective: Yesterday for his hyperglycemia he did not respond to NovoLog and fluid boluses Will transfer to ICU for DKA management Did speak with Dr. Martinez Patient is stating that he has not been using insulin properly because he ran out of insulin and he requires insulin pump for management of his diabetes Mostly he uses 25 to 30 units in a day In terms of COVID-19 he is on 2 L nasal cannula no overnight events, Did speak with the patient that at this point there is no acute indication for him to be transferred to [facility], Dr. Martinez is plan to watch him here, holding his immunosuppressive's Today we will repeat BMP every 4 hours Start insulin drip Vitals/I&O/Wt Last Vital Signs Temp 97.4 F L 08/05/21 08:00 Pulse 66 08/05/21 09:29 Resp 18 08/05/21 09:29 BP 151/61 08/05/21 08:00 Pulse Ox 96 08/05/21 09:29 08/04/21 08/05/21 08/05/21 22:59 06:59 14:59 Intake Total 1320 / 2060 983.333 / 3043.333 Output Total 80 / 280 250 / 530 150 / 150 Balance 1240 / 1780 733.333 / 2513.333 -150 / -150 Physical Exam Narrative: Patient is awake and alert He was eating breakfast Abdomen soft Saturating well on 2 L nasal cannula No active shortness of breath or chest pain Looks euvolemic is accompanying him Nonfocal neuro exam Data : 08/05/21 06:18 08/05/21 06:18 Micro: Microbiology 08/01/21 17:17 Urine Culture - Final Urine,Clean Catch 08/03/21 08:25 Blood Culture - Preliminary Blood NEGATIVE TO DATE 08/03/21 08:15 Blood Culture - Preliminary Blood NEGATIVE TO DATE A&P Assessment and plan (1) Acute kidney injury superimposed on chronic kidney disease: Status: Acute (2) COVID-19: Status: Acute (3) Long-term use of high-risk medication: Status: Chronic (4) Peripheral artery disease: Status: Chronic (5) CAD (coronary artery disease): Status: Chronic Qualifiers: Coronary Disease-Associated Artery/Lesion type: bypass graft [place] vs. transplanted heart: [place] heart Associated angina: without angina Qualified Code(s): I25.810 - Atherosclerosis of coronary artery bypass graft(s) without angina pectoris (6) Generalized weakness: Status: Acute (7) Warfarin anticoagulation: Status: Chronic (8) Paroxysmal atrial fibrillation: Status: Chronic (9) Aortic root enlargement: Status: Chronic (10) Sleep apnea: Status: Chronic Qualifiers: Sleep apnea type: obstructive Qualified Code(s): G47.33 - Obstructive sleep apnea (adult) (pediatric) (11) Hx of kidney transplant: Status: Chronic (12) End stage renal disease: Status: Chronic (13) Essential hypertension: Status: Chronic Plan DKA Transfer to ICU Start insulin Target blood sugar 100 4280 Stop insulin once blood sugar below 200 Stop insulin if potassium less than 3.5 Currently potassium is 6.0, We will give him Kayexalate as well however insulin infusion will definitely help it as well 1 g calcium gluconate Keep normal saline without potassium supplementation for now at 100 mL/h Change diet to clear liquid COVID-19 related hypoxia Currently doing well on 2 L nasal cannula Resume Decadron and remdesivir, Closely monitor creatinine as remdesivir has reported side effects of abnormal LFTs and worsening of creatinine Acute on chronic kidney disease Creatinine has worsened Dr. Loyd recommended holding immunosuppressive agents for now, plan is to monitor his urine output correlate with creatinine, Bicarb tablets added Supratherapeutic INR pharmacy consulted for Coumadin dosing, holding Coumadin today Patient takes Coumadin for history of A. fib High digoxin level, hold for now, no signs of abnormal rhythm, check EKG Heparin for DVT prophylaxis Critical diet Transfer to ICU Full code updated Attestations Medical Necessity Statement*: ICU Time Spent in Patient Care: 15 minutes Coding Level of Care Code Acute Service Desk Associate for g Fwd Diagnoses Acute kidney injury superimposed on chronic kidney disease N17.9; N18.9 COVID-19 U07.1 Long-term use of high-risk medication Z79.899 Peripheral artery disease I73.9 CAD (coronary artery disease) I25.810 Coronary Disease-Associated Artery/Lesion type: bypass graft [place] vs. transplanted heart: [place] heart Associated angina: without angina Generalized weakness R53.1 Warfarin anticoagulation Z79.01 Paroxysmal atrial fibrillation I48.0 Aortic root enlargement I77.89 Sleep apnea G47.33 Sleep apnea type: obstructive Hx of kidney transplant Z94.0 End stage renal disease N18.6 Essential hypertension I10
[2021-08-05 11:23] LABS: Glucose Point of Care 488 mg/dL (70-110)
--- NOTE | 2021-08-05 12:24 | PC.NURSE ---
subq heparin being held today per dr kirkpatrick d/t elevated INR of 7.12
[2021-08-05 13:01] LABS: Alanine Aminotransferase 13 U/L (0-41); Albumin Level 2.7 g/dL (3.5-5.2); Alkaline Phosphatase 73 IU/L (40-130); Anion Gap 18.8 (5-19); Aspartate Amino Transferase 19 U/L (0-40); Calcium 8.8 mg/dL (8.5-10.5); Carbon Dioxide 17 mmol/L (22-29); Chloride 100 mmol/L (98-107); Creatinine Clr Calc Pharmacy 25.6017; Globulin 2.4 g/dL (1.3-4.6); Glucose 464 mg/dL (65-115); Osmolality Calculated 321 mOsm/kg (285-295); Potassium 4.8 mmol/L (3.5-5.1); Sodium 131 mmol/L (136-145); Total Bilirubin 0.4 mg/dL (0.15-1.2); Total Protein 5.1 g/dL (6.6-8.7)
[2021-08-05 13:21] LABS: Blood Urea Nitrogen 94 mg/dL (8-23)
--- NOTE | 2021-08-05 14:30 | PC.NURSE ---
Pt arrived to ICU from [facility]. No oxygen, pt on room air. No shortness of breath or other distress noted. Peripheral IV noted in Left Forearm with Bicarb fluids infusing, see MAR. Sinus rhythm on monitor. at bedside, rearranging room. Awaitng insulin gtt arrival from pharmacy. Pt denies pain at this time.
--- NOTE | 2021-08-05 14:45 | PC.NURSE ---
report given to Elissa BRYAN in ICU, pt taken by bed accompanied by spouse for handoff.
[2021-08-05] MEDS: calcium gluconate 0.9% NaCL 1 GM/50 ML PREMIX IV (15:21)
[2021-08-05] MEDS: sodium polystyrene sulfonate 15 gm/60 mL Btl PO (15:21)
[2021-08-05] MEDS: insulin regular-human 250 UNIT in sodium chloride 0.9% 250 ML 8.79 UNIT IV (15:40)
[2021-08-05 15:52] LABS: Anion Gap 20.4 (5-19); Calcium 8.6 mg/dL (8.5-10.5); Carbon Dioxide 16 mmol/L (22-29); Chloride 100 mmol/L (98-107); Glucose 342 mg/dL (65-115); Osmolality Calculated 315 mOsm/kg (285-295); Potassium 4.4 mmol/L (3.5-5.1); Sodium 132 mmol/L (136-145)
[2021-08-05 16:00] LABS: Glucose Point of Care 351 mg/dL (70-110)
[2021-08-05 16:11] LABS: Blood Urea Nitrogen 90 mg/dL (8-23)
[2021-08-05 17:51] LABS: Alanine Aminotransferase 13 U/L (0-41); Albumin Level 2.8 g/dL (3.5-5.2); Alkaline Phosphatase 76 IU/L (40-130); Anion Gap 21.5 (5-19); Aspartate Amino Transferase 22 U/L (0-40); Calcium 8.3 mg/dL (8.5-10.5); Carbon Dioxide 18 mmol/L (22-29); Chloride 99 mmol/L (98-107); Globulin 2.2 g/dL (1.3-4.6); Glucose 308 mg/dL (65-115); Osmolality Calculated 316 mOsm/kg (285-295); Potassium 4.5 mmol/L (3.5-5.1); Sodium 134 mmol/L (136-145); Total Bilirubin 0.4 mg/dL (0.15-1.2)
[2021-08-05 18:03] LABS: Blood Urea Nitrogen 86 mg/dL (8-23)
[2021-08-05] MEDS: remdesivir 100 MG in sodium chloride 0.9% (100 ml) 80 ML IV (18:14)
--- NOTE | 2021-08-05 19:31 | PC.NURSE ---
Shift Note Frequent safety and comfort rounds continue. Orders and/or nursing care completed as indicated. Patient monitored for response to intervention and treatment(s). Education provided includes Remdesivir, Insulin gtt, Docusate sodium, visitor leaving mask on so as not to expose others, and plan of care. Patient and/or admitting representative verbalized understanding of plan of care, medications and progress. Anion gap remains elevated. Pt remoains on insulin gtt. His potassium level WNL. BUN decreasing but still high, Creatinine holding steady at 2.8. Pt had two loose yellow BM in ICU. Will continue to monitor.
--- NOTE | 2021-08-05 19:45 | PC.NURSE ---
Heparin Not Administered Heparin 5000 units due at 2030. Patient's pt 62.4 and INR 7.12; Dr. Munguia called to clarify order. Verbal order received to hold heparin dose. Medication not administered.
[2021-08-05 19:57] LABS: Add Urine Culture? No; Amorphous Sediment Urine 1+ /hpf; Bacteria Urine TRACE /hpf; Bilirubin Urine Neg (Negative); Blood Urine Neg (Negative); Glucose Urine UA 2+ (Normal); Hyaline Casts Urine 0-4 /lpf; Ketones Urine Negative (Negative); Leukocyte Esterase Urine Negative (Negative); Mucus Urine TRACE /hpf; Nitrate Urine Negative (Negative); Protein Urine Neg (Negative); RBC Urine 0-4 /hpf (0-2); Squamous Epithelial Cell Urine 0-4 /hpf (0-5); Urine Appearance Clear (CLEAR); Urine Color Yellow (Yellow); Urobilinogen Urine Norm (Negative); pH Urine 5 (5-7)
[2021-08-05] MEDS: tamsulosin 0.4 mg Capsule PO (20:05)
[2021-08-05] MEDS: dexamethasone 4 mg/mL INJ 6 MG IVP (20:05)
[2021-08-05 20:18] LABS: Glucose Point of Care 308 mg/dL (70-110)
[2021-08-05 22:07] LABS: Glucose Point of Care 137 mg/dL (70-110)
[2021-08-05 22:07] LABS: Glucose Point of Care 239 mg/dL (70-110)
[2021-08-05] MEDS: dextrose 5%-sod chloride 0.9% 1,000 ML 100 ML IV (22:28)
[2021-08-05 23:04] LABS: Glucose Point of Care 108 mg/dL (70-110)
[2021-08-05 23:16] LABS: Anion Gap 19.8 (5-19); Calcium 9.1 mg/dL (8.5-10.5); Carbon Dioxide 19 mmol/L (22-29); Chloride 100 mmol/L (98-107); Glucose 114 mg/dL (65-115); Osmolality Calculated 308 mOsm/kg (285-295); Potassium 3.8 mmol/L (3.5-5.1); Sodium 135 mmol/L (136-145)
[2021-08-05 23:17] LABS: Blood Urea Nitrogen 89 mg/dL (8-23); Creatinine Clr Calc Pharmacy 28.5557
--- NOTE | 2021-08-05 23:21 | PC.NURSE ---
Physician Communication Critical lab blood culture: 1 of 4 bottles positive for gram positive cocci. Dr. Munguia notified of this as well as patient's blood sugar being <200. Orders received to decrease bicarb drip to 25 ml/hr, start D5NS at 100 ml/hr, continue insulin drip until further notice and physician to put in vancomycin order. Orders carried out as indicated.
[2021-08-05 23:38] LABS: Bacillus cereus group Not Detected (NOT DETECT); Bacillus subtillis group Not Detected (NOT DETECT); Corynebacterium Detected (NOT DETECT); Cutibacterium acnes (P.acnes) Not Detected (NOT DETECT); Enterococcus Not Detected (NOT DETECT); Enterococcus faecalis Not Detected (NOT DETECT); Enterococcus faecium Not Detected (NOT DETECT); Lactobacillus species Not Detected (NOT DETECT); Listeria Not Detected (NOT DETECT); Listeria monocytogenes Not Detected (NOT DETECT); Micrococcus Not Detected (NOT DETECT); Pan Candida Not Detected (NOT DETECT); Pan Gram-Negative Not Detected (NOT DETECT); Staphylococcus epidermidis Not Detected (NOT DETECT); Staphylococcus lugdunensis Not Detected (NOT DETECT); Staphylococcus species Not Detected (NOT DETECT); Streptococcus agalactiae Not Detected (NOT DETECT); Streptococcus anginosus group Not Detected (NOT DETECT); Streptococcus pneumoniae Not Detected (NOT DETECT); Streptococcus pyogenes Not Detected (NOT DETECT); Streptococcus species Not Detected (NOT DETECT)
[2021-08-06] VITALS (17 sets, daily range): BP systolic 88–161; BP diastolic 45–96; PULSE 61–84; RESP 12–25; TEMP 36.7–37; O2SAT 90–98; BMI 30.5
--- NOTE | 2021-08-06 00:23 | PC.PHAR ---
Pharmacokinetic dosing service Date: 08/06/21 Time: 29 Objective: Patient: Jaya Kidd Floor: ICU-8 Age: 76 yo Serum creatinine: 2.6 mg/dL Height: 70.0 Inches Weight (kg): 92.986 Diagnosis: Relevant medical/social history: Cultures and sensitivities: Other labs: Assessment: IBW (kg): 73.00 Dosing wt(kg): 92.986 Estimated Creatinine clearance (ml/min): 25.7 CRCL method: Cockcroft and Gault using ibw(default). Drug selected: Vancomycin Loading dose (mg): 0 Vd (liters): 83.7 (factor used: 0.9 L/kg) Thompson (hr-1): 0.026 Half life (hrs): 26.66 Recommended dose: 1250 mg Interval: 24 hrs Infusion time (hrs): 1.5 Predicted peak (mcg/mL): 31.6 Predicted trough (mcg/mL): 17.60 Total body weight is being used for vancomycin dosing. Renal function is stable [ ] /unstable [ ] Recommendations: Give Vancomycin 1250 mg q 24 hrs with an expected Cpeak of 31.6 mcg/ml and an expected Ctrough of 17.60 mcg/ml Renal dosing of other antibiotics (review renal dosing of other medications and list guidelines here): Thank you for the consult, will continue to follow. Signature: Ora Case [facility]
[2021-08-06] MEDS: vancomycin 1,250 MG/250 ML PIGGYBACK 250 MG IV (01:12)
[2021-08-06 01:20] LABS: Glucose Point of Care 100 mg/dL (70-110)
[2021-08-06 01:20] LABS: Glucose Point of Care 102 mg/dL (70-110)
[2021-08-06 02:50] LABS: Hematocrit 32.8 % (42.0-52.0); Hemoglobin 10.4 g/dL (11.7-16.6); Lymphocytes # 0.5 10^3/uL (0.8-4.8); Lymphocytes % 5.2 %; Mean Corpuscular HGB Conc 31.7 g/dL (30.0-36.0); Mean Corpuscular Hemoglobin 26.5 pg (28.0-34.0); Mean Corpuscular Volume 83.5 fl (80-94); Mean Platelet Volume 10.8 fL (7.4-10.4); Monocytes # 0.3 10^3/uL (0.2-0.9); Monocytes % 2.9 %; Neutrophils # 8.49 10^3/uL (1.8-7.7); Neutrophils % 91.5 %; Nucleated Red Blood Cells % 0 %; Platelet Count 149 10^3/cmm (130-400); Red Blood Count 3.93 10^6/uL (4.1-5.3); Red Cell Distribution Width 13.8 % (12.1-15.1); White Blood Count 9.3 10^3/uL (4.0-10.0)
[2021-08-06 03:11] LABS: Alanine Aminotransferase 15 U/L (0-41); Albumin Level 2.9 g/dL (3.5-5.2); Alkaline Phosphatase 74 IU/L (40-130); Aspartate Amino Transferase 24 U/L (0-40); Calcium 8.3 mg/dL (8.5-10.5); Carbon Dioxide 18 mmol/L (22-29); Chloride 102 mmol/L (98-107); Globulin 2.1 g/dL (1.3-4.6); Glucose 109 mg/dL (65-115); Magnesium 1.9 mg/dL (1.7-2.3); Osmolality Calculated 306 mOsm/kg (285-295); Phosphorus 3.9 mg/dL (2.5-4.5); Sodium 135 mmol/L (136-145); Total Bilirubin 0.4 mg/dL (0.15-1.2)
[2021-08-06 03:15] LABS: Anion Gap 19.4 (5-19); Blood Urea Nitrogen 83 mg/dL (8-23); Potassium 4.4 mmol/L (3.5-5.1)
[2021-08-06 03:17] LABS: INR 6.87 (0.8-1.2)
[2021-08-06 07:26] LABS: Anion Gap 19.5 (5-19); Carbon Dioxide 16 mmol/L (22-29); Chloride 102 mmol/L (98-107); Glucose 164 mg/dL (65-115); Osmolality Calculated 305 mOsm/kg (285-295); Potassium 4.5 mmol/L (3.5-5.1); Sodium 133 mmol/L (136-145)
[2021-08-06 07:31] LABS: Blood Urea Nitrogen 83 mg/dL (8-23)
[2021-08-06 07:43] LABS: Glucose Point of Care 316 mg/dL (70-110)
[2021-08-06 07:43] LABS: Glucose Point of Care 292 mg/dL (70-110)
[2021-08-06 07:43] LABS: Glucose Point of Care 307 mg/dL (70-110)
[2021-08-06 07:56] LABS: Glucose Point of Care 139 mg/dL (70-110)
[2021-08-06 07:56] LABS: Glucose Point of Care 170 mg/dL (70-110)
[2021-08-06 07:56] LABS: Glucose Point of Care 124 mg/dL (70-110)
[2021-08-06 07:56] LABS: Glucose Point of Care 88 mg/dL (70-110)
[2021-08-06 07:56] LABS: Glucose Point of Care 153 mg/dL (70-110)
[2021-08-06 07:56] LABS: Glucose Point of Care 109 mg/dL (70-110)
--- NOTE | 2021-08-06 08:05 | PM.PN ---
Subjective Subjective: feels better. comfortable in bed. no n/v/f/c/neil/d/leg pains. states he is urinating Medications: Reviewed: Yes Medication Review Details: Current Medications Acetaminophen (Acetaminophen 325 Mg Tablet) 650 mg PO Q6H PRN PRN Reason: Mild/Mod Pain Or Temp >/= 101 Albuterol Sulfate (Albuterol 8 Gm Mdi) 2 puff INHALATION Q4H.RESPIRATORY PRN PRN Reason: SHORTNESS OF BREATH Albuterol/Ipratropium (Ipratropium-Albuterol 3 Ml Neb) 3 ml INHALATION Q4H.RESPIRATORY PRN PRN Reason: SHORTNESS OF BREATH Ascorbic Acid (Ascorbic Acid 500 Mg Tablet) 500 mg PO BID [facility] Last Admin: 08/05/21 18:13 Dose: 500 mg Documented by: Aspirin (Aspirin 325 Mg Tablet) 81 mg PO DAILY [facility] Last Admin: 08/05/21 08:22 Dose: 81 mg Documented by: Atorvastatin Calcium (Atorvastatin 40 Mg Tablet) 20 mg PO DAILY [facility] Last Admin: 08/05/21 08:22 Dose: 20 mg Documented by: Bisacodyl (Bisacodyl 5 Mg Tablet) 10 mg PO DAILY PRN; Protocol PRN Reason: Constipation (see protocol) Carvedilol (Carvedilol 25 Mg Tablet) 25 mg PO BID [facility] Last Admin: 08/05/21 18:13 Dose: 25 mg Documented by: Cetirizine HCl (Cetirizine 10 Mg Tablet) 10 mg PO DAILY@09 [facility] Last Admin: 08/05/21 08:22 Dose: 10 mg Documented by: Dexamethasone (Dexamethasone 4 Mg/Ml Inj) 6 mg IVP Q24H [facility] Last Admin: 08/05/21 20:05 Dose: 6 mg Documented by: Dextrose (Dextrose 50% Syringe 50 Ml) 25 ml IVP ONCE PRN; Protocol PRN Reason: hypoglycemia protocol Dextrose (Dextrose 50% Syringe 50 Ml) 50 ml IVP PRN PRN; Protocol PRN Reason: hypoglycemia protocol Docusate Sodium (Docusate Sodium 100 Mg Capsule) 100 mg PO BID [facility] Last Admin: 08/05/21 18:55 Dose: Not Given Documented by: Famotidine (Famotidine 20 Mg Tablet) 20 mg PO DAILY@09 [facility] Last Admin: 08/05/21 08:21 Dose: 20 mg Documented by: Glucagon (Glucagon 1 Mg/Ml Inj 1 Ml) 1 mg IM ONCE PRN; Protocol PRN Reason: Adult Acute Hypoglycemia Prot. Heparin Sodium (Porcine) (Heparin 5,000 Unit/Ml Inj 1 Ml) 5,000 unit SUBCUT Q8H [facility] Last Admin: 08/05/21 19:48 Dose: Not Given Documented by: Dextrose (D5w) 500 mls @ 100 mls/hr IV ONCE PRN; Protocol PRN Reason: Adult Acute Hypoglycemia Prot Remdesivir 100 mg/ Sodium (Chloride) 80 mls @ 100 mls/hr IV Q24H [facility] Stop: 08/07/21 18:47 Last Infusion: 08/05/21 19:10 Dose: Infused Documented by: Sodium Bicarbonate 75 meq/ (Sodium Chloride) 1,000 mls @ 25 mls/hr IV .Q24H [facility] Last Admin: 08/05/21 22:34 Dose: Not Given Documented by: Dextrose/Sodium Chloride (Dextrose 5%-Sod Chloride 0.9%) 1,000 mls @ 100 mls/hr IV .Q10H [facility] Last Admin: 08/05/21 22:28 Dose: 100 mls/hr Documented by: Vancomycin/PEG/NADA/Lysine/Water (Vancocin) 1,250 mg in 250 mls @ 250 mls/hr IV Q24H [facility] Last Infusion: 08/06/21 02:27 Dose: Infused Documented by: Insulin Glargine (Insulin Glargine 100 Units/1 Ml) 10 unit SUBCUT BEDTIME [facility] Last Admin: 08/05/21 19:52 Dose: Not Given Documented by: Insulin Human Lispro (Insulin Lispro 100 Unit/1 Ml) 0 unit SUBCUT TIDWM [facility]; Protocol Last Admin: 08/05/21 17:48 Dose: Not Given Documented by: Insulin Human Lispro (Insulin Lispro 100 Unit/1 Ml) 5 unit SUBCUT AC [facility] Last Admin: 08/05/21 12:30 Dose: 5 unit Documented by: Ondansetron HCl (Ondansetron 2 Mg/Ml Sdv 2 Ml) 4 mg IVP Q8H PRN PRN Reason: vomiting, or N/V if npo Tamsulosin HCl (Tamsulosin 0.4 Mg Capsule) 0.4 mg PO BEDTIME@2100 [facility] Last Admin: 08/05/21 20:05 Dose: 0.4 mg Documented by: Tramadol HCl (Tramadol 50 Mg Tablet) 50 mg PO BID PRN PRN Reason: pain Vitamin D (Cholecalciferol (Vitamin D3) 1,000 Unit Tablet) 2,000 unit PO DAILY [facility] Last Admin: 08/05/21 08:21 Dose: 2,000 unit Documented by: Warfarin Sodium (Warfarin 5 Mg Tablet) 5 mg PO MoSa [facility] Zinc Gluconate (Zinc Gluconate 50 Mg Tablet) 50 mg PO DAILY [facility] Last Admin: 08/05/21 08:21 Dose: 50 mg Documented by: Vitals/I&O/Wt Last Vital Signs Temp 98.4 F 08/06/21 04:01 Pulse 65 08/06/21 06:00 Resp 20 H 08/06/21 06:00 BP 143/52 08/06/21 06:00 Pulse Ox 93 08/06/21 06:00 08/05/21 08/06/21 08/06/21 22:59 06:59 14:59 Intake Total 1261.293 / 2612.960 385.33 / 2998.290 0.9 / 0.9 Output Total 315 / 465 775 / 1240 Balance 946.293 / 2147.960 -389.67 / 1758.290 0.9 / 0.9 Weight last 48 hrs Weight 96.479 kg Physical Exam Narrative: comfortable, NARD vss heent- nc/at, eomi neck supple lungs ronchi b/l heart- irreg irreg, no rub abd soft, nt, nd, + bs ext no edema neuro a,a, o x 3 Data : 08/06/21 02:37 08/06/21 06:43 Micro: Microbiology 08/03/21 08:15 Blood Culture - Preliminary Blood Corynebacterium species A&P Assessment and plan (1) Hx of kidney transplant: 76 yr old man Renal tx w/ CKD stage 3 - baseline cr 1.4 mg/dl. Pt here w/ COVID-19 pna 1. renal tx w/ CKD stage 3 -pth 147 2. 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 inc AGMA- abg w/ excellent resp compensation -AG down to 15 -likely DKA-his serum ketones were + yesterday. urine ketines remained neg -cont insulin -change ivf to LR 4. Hematuria On admission urinalysis showed microscopic hematuria, however, this was not present on repeat samples. Continue to monitor. May need urology evaluation as an outpatient. 5. INR 6.87- hold coumadin- 6. hyponatremia from mireille, prerenal, and hyperglycemia -imnproved Patient seen and examined via telemedicine, with the assistance of the bedside RN 30 min spent in evaluation and mgmt of patient Status: Chronic Plan see above Attestations Medical Necessity Statement*: mireille, renal tx, dka, covid Time Spent in Patient Care: 16 - 35 minutes (>than 50% of time spent in counselling and/or direct pt care on unit). Coding Level of Care Code Acute Chemical Plant Worker for Antionette Fenton Diagnoses Hx of kidney transplant Z94.0
[2021-08-06 08:10] LABS: Glucose Point of Care 198 mg/dL (70-110)
[2021-08-06] MEDS: dextrose 5%-sod chloride 0.9% 1,000 ML 100 ML IV (09:00)
[2021-08-06] MEDS: lactated ringers 1,000 ML 100 ML IV ×2 (09:02→22:57)
[2021-08-06] MEDS: insulin lispro 100 unit/1 mL SUBCUT ×5 (09:03→18:06)
[2021-08-06] MEDS: cholecalciferol (vitamin D3) 1,000 unit Tablet 2000 UNIT PO (09:04)
[2021-08-06] MEDS: ascorbic acid 500 mg Tablet PO ×2 (09:04→17:56)
[2021-08-06] MEDS: famotidine 20 mg Tablet PO (09:04)
[2021-08-06] MEDS: zinc gluconate 50 mg Tablet PO (09:04)
[2021-08-06] MEDS: carvedilol 25 mg Tablet PO ×2 (09:05→17:56)
[2021-08-06] MEDS: atorvastatin 40 mg Tablet 20 MG PO (09:05)
[2021-08-06] MEDS: aspirin 81 mg EC Tablet PO (09:05)
[2021-08-06] MEDS: tacrolimus 0.5 mg Capsule 1 MG PO ×2 (09:05→18:05)
[2021-08-06] MEDS: cetirizine 10 mg Tablet PO (09:05)
--- NOTE | 2021-08-06 10:14 | PC.CHAP ---
Pastoral Care Encounter/Spiritual Assessment Type of Contact [] Declined mechanical manufacturing engineer visit [] Patient/Family/Request visit [] Outpatient visit [] Follow-up visit [] Physician referral [] Code/Alert [x] Routine visit [] Staff referral [] Actively dying [x] Patient sleeping [] Family support [] [] Out of room [] Palliative care [] [] Receiving care in room [] Pre-surgical visit [] Trauma [] Long length of stay [x] ICU visit [] Other: Relational/Emotional Strength [] Patient feels connected with others/family/visitors/staff [] Distress [] Loneliness/isolation [] Abandonment Spirituality of Patient [] Person of Katherine [] Attends Cheondoism of their Katherine [] Believes in Prayer [] Reads Bible or Anglican materials [] There are Spiritual issues to be addressed Molding Plasterer Interventions [x] Prayer [] Active listening [] Non-anxious presence [] Spiritual/emotional support [] Crisis/trauma care [] Spiritual counseling [] Bereavement support [] Provided bereavement packet [] Provided Bible/devotional materials [] Provided toy/stuffed animal, coloring book to patient or family member [] Provided Communion [] Anointing/[place] [] Salvation [x] Completed spiritual assessment [] Other: Impact on Illness or Injury [] Angry [] Fearful [] Anxious [] Often cries [] Exhaustion [] Unable to work [] Unable to attend anabaptist [] Unable to walk/stand [] Unable to read [] Unable to drive [] Unable to eat/drink [] Unable to sleep [] Unable to be with family [] Patient intubated [] Other: Summary Time spent with patient
--- NOTE | 2021-08-06 10:45 | PM.PN ---
Subjective Subjective: DKA has resolved Supratherapeutic INR holding Coumadin I am planning to keep him on 5 units premeal along Lantus 10 units patient at home takes 1 unit of insulin per hour and boluses with his meals so on average she takes about 25 to 30 units a day Appreciate nephro recommendations Normal saline changed to LR Creatinine improved to 2.2 Patient clinically is doing much better off oxygen, doing well on room air Had 1 bowel movement as well Vitals/I&O/Wt Last Vital Signs Temp 98.4 F 08/06/21 04:01 Pulse 84 08/06/21 08:23 Resp 16 08/06/21 08:23 BP 143/52 08/06/21 06:00 Pulse Ox 95 08/06/21 08:23 08/05/21 08/06/21 08/06/21 22:59 06:59 14:59 Intake Total 1311.293 / 2662.960 385.33 / 3048.290 1262.54 / 1262.54 Output Total 315 / 465 775 / 1240 Balance 996.293 / 2197.960 -389.67 / 1317.120 5777.54 / 1262.54 Weight last 48 hrs Weight 96.479 kg Physical Exam Narrative: Patient is doing much better On room air Saturating well S1, S2 Bilateral breath sound without adventitious rhonchi or crackles Euvolemic Nonfocal neuro exam at the bedside Patient is in good spirits Appears hydrated Was eating breakfast in the morning Data : 08/06/21 02:37 08/06/21 06:43 Micro: Microbiology 08/03/21 08:15 Blood Culture - Preliminary Blood Corynebacterium species A&P Assessment and plan (1) Acute kidney injury superimposed on chronic kidney disease: Status: Acute (2) COVID-19: Status: Acute (3) Long-term use of high-risk medication: Status: Chronic (4) Peripheral artery disease: Status: Chronic (5) CAD (coronary artery disease): Status: Chronic Qualifiers: Coronary Disease-Associated Artery/Lesion type: bypass graft [place] vs. transplanted heart: [place] heart Associated angina: without angina Qualified Code(s): I25.810 - Atherosclerosis of coronary artery bypass graft(s) without angina pectoris (6) Generalized weakness: Status: Acute (7) Diabetes: Status: Chronic Qualifiers: Diabetes mellitus type: type 2 Diabetes mellitus termite control representative insulin use: with termite control representative use Diabetes mellitus complication status: with circulatory complication Diabetes mellitus complication detail: with peripheral angiopathy without gangrene Qualified Code(s): E11.51 - Type 2 diabetes mellitus with diabetic peripheral angiopathy without gangrene; Z79.4 - termite control representative (current) use of insulin (8) Warfarin anticoagulation: Status: Chronic (9) Paroxysmal atrial fibrillation: Status: Chronic (10) Aortic root enlargement: Status: Chronic (11) Sleep apnea: Status: Chronic Qualifiers: Sleep apnea type: obstructive Qualified Code(s): G47.33 - Obstructive sleep apnea (adult) (pediatric) (12) Hx of kidney transplant: Status: Chronic Plan DKA: Resolved COVID-19 with pneumonia Currently on room air Plan to continue steroids at this point considering kidney transplant history and COVID-19 related pneumonia Finish 5 days of remdesivir Acute on chronic kidney disease related to hyperglycemia and underlying COVID-19, creatinine improved with IV fluid hydration and improvement in blood glucose appreciate nephro recommendations Patient is not requiring transfer to [facility] at this point Close monitor for urine output and correlation with creatinine Tacrolimus has been initiated by wedding photographer No leukocytosis or fever, I do believe blood culture positive with corynebacterium is a contamination: We will discontinue vancomycin Hyperglycemia to be controlled with Lantus 10 units at night and premeal insulin insulin drip has been turned off normal saline switch to LR At home was using 1 unit of insulin per hour plus boluses Hematuria: Resolved A. fib without RVR: Supratherapeutic INR, holding Coumadin, continue Coreg Digoxin on hold no signs of arrhythmia Patient will be discharged once cleared by wedding photographer, in terms of COVID-19 and hyperglycemia is doing significantly better as compared to on day of admission Attestations Medical Necessity Statement*: Can be transferred out of ICU to [facility] Time Spent in Patient Care: Medical management to be continued, spent 15 minutes Coding Level of Care Code Acute Electronic Game Developer for g Fwd Diagnoses Acute kidney injury superimposed on chronic kidney disease N17.9; N18.9 COVID-19 U07.1 Long-term use of high-risk medication Z79.899 Peripheral artery disease I73.9 CAD (coronary artery disease) I25.810 Coronary Disease-Associated Artery/Lesion type: bypass graft [place] vs. transplanted heart: [place] heart Associated angina: without angina Generalized weakness R53.1 Diabetes E11.51; Z79.4 Diabetes mellitus type: type 2 Diabetes mellitus group home insulin use: with group home use Diabetes mellitus complication status: with circulatory complication Diabetes mellitus complication detail: with peripheral angiopathy without gangrene Warfarin anticoagulation Z79.01 Paroxysmal atrial fibrillation I48.0 Aortic root enlargement I77.89 Sleep apnea G47.33 Sleep apnea type: obstructive Hx of kidney transplant Z94.0
[2021-08-06 11:56] LABS: Glucose Point of Care 320 mg/dL (70-110)
--- NOTE | 2021-08-06 14:04 | PC.SOCIAL ---
IMM Update IMM updated with patient's . Verbalized an understanding. Initialled, dated, timed, and placed in chart.
[2021-08-06 17:09] LABS: Glucose Point of Care 357 mg/dL (70-110)
[2021-08-06] MEDS: remdesivir 100 MG in sodium chloride 0.9% (100 ml) 80 ML IV (17:56)
--- NOTE | 2021-08-06 19:31 | PC.NURSE ---
Shift Note: Pt rested in bed most of the day. Pt sits on side of bed to use urinal . He has had good ouput of 1000 ml clear yellow urine. His fistula on the right arm has a thrill and bruit. Lung sounds were coarse in the bases. Pt has remained on room air, maintained an O2 sat greater than 94% throughout the shift. Blood sugars have been high at lunch and dinner. He has a set dose of 5 units then a high dose sliding scale for correction. remains at bedside. Frequent safety and comfort rounds continue. Orders and/or nursing care completed as indicated. Patient monitored for response to intervention and treatment(s). Education provided includes Lab values, Remdesivir, insulin and protonix . Patient and/or vaccine customer representative verbalized understanding of plan of care and medications. and Will continue to monitor.
[2021-08-06] MEDS: insulin glargine 100 units/1 mL 10 UNIT SUBCUT (20:21)
[2021-08-06] MEDS: tamsulosin 0.4 mg Capsule PO (20:22)
[2021-08-06] MEDS: dexamethasone 4 mg/mL INJ 6 MG IVP (20:22)
[2021-08-06 20:55] LABS: Glucose Point of Care 415 mg/dL (70-110)
--- NOTE | 2021-08-06 21:25 | PC.NURSE ---
Hygiene Patient received complete bed bath, gown change, and linen change at this time. Patient able to transfer to chair from bed and back to be with standby assistance only. All vital signs stable, patient tolerated activity well.
[2021-08-07] VITALS (30 sets, daily range): BP systolic 109–176; BP diastolic 56–85; PULSE 55–82; RESP 13–26; TEMP 36.2–36.8; O2SAT 79–99; BMI 30.9
[2021-08-07 03:54] LABS: Alanine Aminotransferase 16 U/L (0-41); Albumin Level 2.6 g/dL (3.5-5.2); Alkaline Phosphatase 80 IU/L (40-130); Aspartate Amino Transferase 21 U/L (0-40); Blood Urea Nitrogen 75 mg/dL (8-23); Calcium 9.3 mg/dL (8.5-10.5); Carbon Dioxide 16 mmol/L (22-29); Chloride 102 mmol/L (98-107); Globulin 2.7 g/dL (1.3-4.6); Glucose 435 mg/dL (65-115); Magnesium 1.7 mg/dL (1.7-2.3); Osmolality Calculated 311 mOsm/kg (285-295); Phosphorus 3.6 mg/dL (2.5-4.5); Sodium 130 mmol/L (136-145); Total Bilirubin 0.5 mg/dL (0.15-1.2); Total Protein 5.3 g/dL (6.6-8.7)
[2021-08-07 03:55] LABS: Creatinine Clr Calc Pharmacy 47.2035
[2021-08-07 03:56] LABS: Anion Gap 17.5 (5-19); Potassium 5.5 mmol/L (3.5-5.1)
[2021-08-07 04:24] LABS: Vancomycin Trough 7.4 ug/mL (10-15)
[2021-08-07 06:40] LABS: Glucose Point of Care 474 mg/dL (70-110)
--- NOTE | 2021-08-07 07:54 | PM.PN ---
Subjective Subjective: still tired. glucose is high. no n/v/f/c/neil/d Medications: Reviewed: Yes Medication Review Details: Current Medications Acetaminophen (Acetaminophen 325 Mg Tablet) 650 mg PO Q6H PRN PRN Reason: Mild/Mod Pain Or Temp >/= 101 Albuterol Sulfate (Albuterol 8 Gm Mdi) 2 puff INHALATION Q4H.RESPIRATORY PRN PRN Reason: SHORTNESS OF BREATH Albuterol/Ipratropium (Ipratropium-Albuterol 3 Ml Neb) 3 ml INHALATION Q4H.RESPIRATORY PRN PRN Reason: SHORTNESS OF BREATH Ascorbic Acid (Ascorbic Acid 500 Mg Tablet) 500 mg PO BID [facility] Last Admin: 08/06/21 17:56 Dose: 500 mg Documented by: Aspirin (Aspirin 81 Mg Ec Tablet) 81 mg PO DAILY [facility] Last Admin: 08/06/21 09:05 Dose: 81 mg Documented by: Atorvastatin Calcium (Atorvastatin 40 Mg Tablet) 20 mg PO DAILY [facility] Last Admin: 08/06/21 09:05 Dose: 20 mg Documented by: Bisacodyl (Bisacodyl 5 Mg Tablet) 10 mg PO DAILY PRN; Protocol PRN Reason: Constipation (see protocol) Carvedilol (Carvedilol 25 Mg Tablet) 25 mg PO BID [facility] Last Admin: 08/06/21 17:56 Dose: 25 mg Documented by: Cetirizine HCl (Cetirizine 10 Mg Tablet) 10 mg PO DAILY@09 [facility] Last Admin: 08/06/21 09:05 Dose: 10 mg Documented by: Dexamethasone (Dexamethasone 4 Mg/Ml Inj) 6 mg IVP Q24H [facility] Last Admin: 08/06/21 20:22 Dose: 6 mg Documented by: Dextrose (Dextrose 50% Syringe 50 Ml) 25 ml IVP ONCE PRN; Protocol PRN Reason: hypoglycemia protocol Dextrose (Dextrose 50% Syringe 50 Ml) 50 ml IVP PRN PRN; Protocol PRN Reason: hypoglycemia protocol Docusate Sodium (Docusate Sodium 100 Mg Capsule) 100 mg PO BID [facility] Last Admin: 08/06/21 18:05 Dose: Not Given Documented by: Famotidine (Famotidine 20 Mg Tablet) 20 mg PO DAILY@09 [facility] Last Admin: 08/06/21 09:04 Dose: 20 mg Documented by: Glucagon (Glucagon 1 Mg/Ml Inj 1 Ml) 1 mg IM ONCE PRN; Protocol PRN Reason: Adult Acute Hypoglycemia Prot. Heparin Sodium (Porcine) (Heparin 5,000 Unit/Ml Inj 1 Ml) 5,000 unit SUBCUT Q8H [facility] Last Admin: 08/05/21 19:48 Dose: Not Given Documented by: Dextrose (D5w) 500 mls @ 100 mls/hr IV ONCE PRN; Protocol PRN Reason: Adult Acute Hypoglycemia Prot Remdesivir 100 mg/ Sodium (Chloride) 80 mls @ 100 mls/hr IV Q24H [facility] Stop: 08/07/21 18:47 Last Admin: 08/06/21 17:56 Dose: 100 mls/hr Documented by: Lactated Ringer's (Lactated Ringers) 1,000 mls @ 100 mls/hr IV .Q10H [facility] Last Admin: 08/07/21 07:19 Dose: Not Given Documented by: Insulin Glargine (Insulin Glargine 100 Units/1 Ml) 10 unit SUBCUT BEDTIME [facility] Last Admin: 08/06/21 20:21 Dose: 10 unit Documented by: Insulin Glargine (Insulin Glargine 100 Units/1 Ml) 10 unit SUBCUT BREAKFAST [facility] Insulin Human Lispro (Insulin Lispro 100 Unit/1 Ml) 0 unit SUBCUT TIDWM [facility]; Protocol Last Admin: 08/06/21 18:05 Dose: 16 unit Documented by: Insulin Human Lispro (Insulin Lispro 100 Unit/1 Ml) 8 unit SUBCUT AC [facility] Ondansetron HCl (Ondansetron 2 Mg/Ml Sdv 2 Ml) 4 mg IVP Q8H PRN PRN Reason: vomiting, or N/V if npo Tacrolimus (Tacrolimus 0.5 Mg Capsule) 1 mg PO BID [facility] Last Admin: 08/06/21 18:05 Dose: 1 mg Documented by: Tamsulosin HCl (Tamsulosin 0.4 Mg Capsule) 0.4 mg PO BEDTIME@2100 [facility] Last Admin: 08/06/21 20:22 Dose: 0.4 mg Documented by: Tramadol HCl (Tramadol 50 Mg Tablet) 50 mg PO BID PRN PRN Reason: pain Vitamin D (Cholecalciferol (Vitamin D3) 1,000 Unit Tablet) 2,000 unit PO DAILY [facility] Last Admin: 08/06/21 09:04 Dose: 2,000 unit Documented by: Warfarin Sodium (Warfarin 5 Mg Tablet) 5 mg PO MoSa [facility] Zinc Gluconate (Zinc Gluconate 50 Mg Tablet) 50 mg PO DAILY [facility] Last Admin: 08/06/21 09:04 Dose: 50 mg Documented by: Vitals/I&O/Wt Last Vital Signs Temp 98.3 F 08/07/21 04:00 Pulse 70 08/07/21 06:01 Resp 15 08/07/21 06:01 BP 168/83 08/07/21 06:01 Pulse Ox 89 L 08/07/21 06:01 08/06/21 08/07/21 08/07/21 22:59 06:59 14:59 Intake Total 2500.000 / 4512.540 897 / 5409.540 Output Total 775 / 1775 875 / 2650 Balance 1725.000 / 2737.540 22 / 2759.540 Weight last 48 hrs Weight 97.976 kg Weight 96.479 kg Physical Exam Narrative: comfortable, NARD vss heent- nc/at, eomi neck supple lungs ronchi b/l heart- irreg irreg, no rub abd soft, nt, nd, + bs ext no edema neuro a,a, o x 3 Data : 08/06/21 02:37 08/07/21 03:26 Micro: Microbiology 08/03/21 08:15 Blood Culture - Preliminary Blood Corynebacterium species A&P Assessment and plan (1) Hx of kidney transplant: 76 yr old man Renal tx w/ CKD stage 3 - baseline cr 1.4 mg/dl. Pt here w/ COVID-19 pna 1. renal tx w/ CKD stage 3 -pth 147 2. 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 inc AGMA- abg w/ excellent resp compensation -AG down to 15 -likely DKA-his serum ketones were + yesterday. urine ketines remained neg -will d/c ivf 4.poor DM control. his hyperglycemia is causing hyponatremia and hyperkalemia -dm control per medicine -lowwer steroids per medicine should help w/ gluc 5. INR 6.87- hold coumadin- reepat inr 6. covid -19 per medicine Patient seen and examined via telemedicine, with the assistance of the bedside RN 30 min spent in evaluation and mgmt of patient Status: Chronic Plan see above Attestations Medical Necessity Statement*: covid-19, mireille in renal tx Time Spent in Patient Care: 16 - 35 minutes (>than 50% of time spent in counselling and/or direct pt care on unit). Coding Level of Care Code Acute Supervisor Packing Room for Antionette Fenton Diagnoses Hx of kidney transplant Z94.0
[2021-08-07] MEDS: insulin lispro 100 unit/1 mL 10 UNIT SUBCUT (08:10)
[2021-08-07] MEDS: aspirin 81 mg EC Tablet PO (08:11)
[2021-08-07] MEDS: insulin lispro 100 unit/1 mL SUBCUT (08:11)
[2021-08-07] MEDS: atorvastatin 40 mg Tablet 20 MG PO (08:11)
[2021-08-07] MEDS: carvedilol 25 mg Tablet PO ×2 (08:12→18:42)
[2021-08-07] MEDS: zinc gluconate 50 mg Tablet PO (08:12)
[2021-08-07] MEDS: ascorbic acid 500 mg Tablet PO ×2 (08:12→18:41)
[2021-08-07] MEDS: cholecalciferol (vitamin D3) 1,000 unit Tablet 2000 UNIT PO (08:13)
[2021-08-07] MEDS: cetirizine 10 mg Tablet PO (08:13)
[2021-08-07] MEDS: famotidine 20 mg Tablet PO (08:13)
[2021-08-07] MEDS: tacrolimus 0.5 mg Capsule 1 MG PO ×2 (08:13→18:42)
[2021-08-07 10:48] LABS: INR 6.25 (0.8-1.2)
--- NOTE | 2021-08-07 12:06 | P.PN_ITS ---
Subjective Subjective: For hyperkalemia we will give Kayexalate Doing well on room air Insulin-dependent will be restarted today as he received 41 units of insulin last 24 hours, His creatinine function has improved significantly, appreciate nephro recommendations, This morning I gave him extra units of insulin and escalated his premeals to 8 units however I am planning to discontinue after reinitiate insulin pump, his will bring in insulin from home Decrease LR fluids to 75 mill per hour Vitals/I&O/Wt Last Vital Signs Temp 97.1 F L 08/07/21 08:00 Pulse 64 08/07/21 10:00 Resp 22 H 08/07/21 10:00 BP 146/56 08/07/21 10:00 Pulse Ox 99 08/07/21 10:00 08/06/21 08/07/21 08/07/21 22:59 06:59 14:59 Intake Total 2500.000 / 4512.540 897 / 5409.540 480 / 480 Output Total 775 / 1775 875 / 2650 675 / 675 Balance 1725.000 / 2737.540 22 / 2759.540 -195 / -195 Weight last 48 hrs Weight 97.976 kg Weight 96.479 kg Physical Exam Narrative: Patient was laying flat No orthopnea PND No signs of fluid overload Doing well on room air Abdomen soft No audible stridor or wheezing Nonfocal neuro exam at the bedside Alert oriented Data : 08/06/21 02:37 08/07/21 03:26 Micro: Microbiology 08/03/21 08:15 Blood Culture - Preliminary Blood Corynebacterium species A&P Assessment and plan (1) Acute kidney injury superimposed on chronic kidney disease: Status: Acute (2) COVID-19: Status: Acute (3) Peripheral artery disease: Status: Chronic (4) Generalized weakness: Status: Acute (5) Hx of kidney transplant: Status: Chronic (6) End stage renal disease: Status: Chronic Plan DKA: Resolved Hyperglycemia We will restart insulin pump today He required 41 units of insulin total in last 24 hours and he is still hyperglycemic, insulin pump will be considered the best remedy of his hyperglycemia at this point We will discontinue long-acting insulin after initiation of insulin pump I plan to decrease his LR to 75 mill per hour COVID-19 pneumonia not requiring oxygen Holding off on steroids because of severe excursions on POC glucose We will stop remdesivir Acute on chronic kidney disease: Creatinine has improved significantly, creatinine improved more than his baseline value I am planning to discharge him in next 24 hours after management of hyperglycemia Slu transfer canceled, transfer line was notified Renal diet DVT prophylaxis: Patient is still supratherapeutic Holding Coumadin A. fib without RVR Hyperkalemia: Given Kayexalate He can be transferred out of ICU Appreciate nephro recommendations, currently on mycophenolate, tacrolimus Attestations Medical Necessity Statement*: Discharge tomorrow Time Spent in Patient Care: 20min Coding Level of Care Code Acute Gear Machine Operator General for g Fwd Diagnoses Acute kidney injury superimposed on chronic kidney disease N17.9; N18.9 COVID-19 U07.1 Peripheral artery disease I73.9 Generalized weakness R53.1 Hx of kidney transplant Z94.0 End stage renal disease N18.6
[2021-08-07 12:20] LABS: Glucose Point of Care 380 mg/dL (70-110)
[2021-08-07] MEDS: sodium polystyrene sulfonate 15 gm/60 mL Btl PO (12:23)
[2021-08-07] MEDS: lactated ringers 1,000 ML 75 ML IV (13:27)
--- NOTE | 2021-08-07 15:31 | PC.NURSE ---
NUrse redresed wound to right foot. Sterile saline rinse. Applied hydrofera blue and covaderm.
--- NOTE | 2021-08-07 16:44 | PC.NURSE ---
Transferred patient to [facility] surge room 260. Report given to Jaelyn. Transfer was uneventful. Belongings sent with patient included his dexcom, insulin pump, vial of novolog, prosthetic leg, tablet PC, and clothing. Dr andrade notified of transfer.
[2021-08-07 16:54] LABS: Glucose Point of Care 251 mg/dL (70-110)
[2021-08-07 21:09] LABS: Glucose Point of Care 230 mg/dL (70-110)
[2021-08-07] MEDS: tamsulosin 0.4 mg Capsule PO (22:22)
[2021-08-08] VITALS: BP 159/64; PULSE 68; RESP 19; TEMP 36.8
[2021-08-08 03:38] VITALS: BP 148/76; PULSE 63; RESP 19; TEMP 36.6; O2SAT 95
[2021-08-08] MEDS: lactated ringers 1,000 ML 75 ML IV (03:46)
[2021-08-08 04:06] LABS: Glucose Point of Care 169 mg/dL (70-110)
[2021-08-08 05:15] LABS: Hematocrit 35.3 % (42.0-52.0); Hemoglobin 10.7 g/dL (11.7-16.6); Lymphocytes # 0.7 10^3/uL (0.8-4.8); Lymphocytes % 9.5 %; Mean Corpuscular HGB Conc 30.3 g/dL (30.0-36.0); Mean Corpuscular Hemoglobin 26.3 pg (28.0-34.0); Mean Corpuscular Volume 86.7 fl (80-94); Mean Platelet Volume 10.1 fL (7.4-10.4); Monocytes # 0.4 10^3/uL (0.2-0.9); Monocytes % 5.2 %; Neutrophils # 6.11 10^3/uL (1.8-7.7); Neutrophils % 84.1 %; Nucleated Red Blood Cells % 0 %; Platelet Count 157 10^3/cmm (130-400); Red Blood Count 4.07 10^6/uL (4.1-5.3); White Blood Count 7.3 10^3/uL (4.0-10.0)
[2021-08-08 05:32] LABS: Alanine Aminotransferase 14 U/L (0-41); Albumin Level 2.8 g/dL (3.5-5.2); Alkaline Phosphatase 69 IU/L (40-130); Anion Gap 16.2 (5-19); Aspartate Amino Transferase 15 U/L (0-40); Blood Urea Nitrogen 66 mg/dL (8-23); Calcium 8.6 mg/dL (8.5-10.5); Carbon Dioxide 19 mmol/L (22-29); Chloride 108 mmol/L (98-107); Globulin 1.9 g/dL (1.3-4.6); Glucose 147 mg/dL (65-115); Osmolality Calculated 308 mOsm/kg (285-295); Phosphorus 3.3 mg/dL (2.5-4.5); Potassium 5.2 mmol/L (3.5-5.1); Sodium 138 mmol/L (136-145); Total Bilirubin 0.4 mg/dL (0.15-1.2); Total Protein 4.7 g/dL (6.6-8.7)
[2021-08-08 05:40] LABS: INR 6.45 (0.8-1.2)
[2021-08-08 06:20] LABS: Glucose Point of Care 147 mg/dL (70-110)
[2021-08-08 07:38] VITALS: BP 171/84; PULSE 74; RESP 13; O2SAT 94
[2021-08-08 08:31] VITALS: PULSE 71; RESP 18; O2SAT 93
--- NOTE | 2021-08-08 08:51 | P.PN_ITS ---
Subjective Subjective: feels well. no n/v/f/c/neil Medications: Reviewed: Yes Medication Review Details: Current Medications Acetaminophen (Acetaminophen 325 Mg Tablet) 650 mg PO Q6H PRN PRN Reason: Mild/Mod Pain Or Temp >/= 101 Albuterol Sulfate (Albuterol 8 Gm Mdi) 2 puff INHALATION Q4H.RESPIRATORY PRN PRN Reason: SHORTNESS OF BREATH Albuterol/Ipratropium (Ipratropium-Albuterol 3 Ml Neb) 3 ml INHALATION Q 4H.RESPIRATORY PRN PRN Reason: SHORTNESS OF BREATH Ascorbic Acid (Ascorbic Acid 500 Mg Tablet) 500 mg PO BID [facility] Last Admin: 08/07/21 18:41 Dose: 500 mg Documented by: Aspirin (Aspirin 81 Mg Ec Tablet) 81 mg PO DAILY [facility] Last Admin: 08/07/21 08:11 Dose: 81 mg Documented by: Atorvastatin Calcium (Atorvastatin 40 Mg Tablet) 20 mg PO DAILY [facility] Last Admin: 08/07/21 08:11 Dose: 20 mg Documented by: Bisacodyl (Bisacodyl 5 Mg Tablet) 10 mg PO DAILY PRN; Protocol PRN Reason: Constipation (see protocol) Carvedilol (Carvedilol 25 Mg Tablet) 25 mg PO BID [facility] Last Admin: 08/07/21 18:42 Dose: 25 mg Documented by: Cetirizine HCl (Cetirizine 10 Mg Tablet) 10 mg PO DAILY@09 [facility] Last Admin: 08/07/21 08:13 Dose: 10 mg Documented by: Dexamethasone (Dexamethasone 4 Mg/Ml Inj) 6 mg IVP Q24H [facility] Last Admin: 08/06/21 20:22 Dose: 6 mg Documented by: Dextrose (Dextrose 50% Syringe 50 Ml) 25 ml IVP ONCE PRN; Protocol PRN Reason: hypoglycemia protocol Dextrose (Dextrose 50% Syringe 50 Ml) 50 ml IVP PRN PRN; Protocol PRN Reason: hypoglycemia protocol Docusate Sodium (Docusate Sodium 100 Mg Capsule) 100 mg PO BID [facility] Last Admin: 08/07/21 18:44 Dose: Not Given Documented by: Famotidine (Famotidine 20 Mg Tablet) 20 mg PO DAILY@09 [facility] Last Admin: 08/07/21 08:13 Dose: 20 mg Documented by: Glucagon (Glucagon 1 Mg/Ml Inj 1 Ml) 1 mg IM ONCE PRN; Protocol PRN Reason: Adult Acute Hypoglycemia Prot. Heparin Sodium (Porcine) (Heparin 5,000 Unit/Ml Inj 1 Ml) 5,000 unit SUBCUT Q8H [facility] Last Admin: 08/05/21 19:48 Dose: Not Given Documented by: Dextrose (D5w) 500 mls @ 100 mls/hr IV ONCE PRN; Protocol PRN Reason: Adult Acute Hypoglycemia Prot Lactated Ringer's (Lactated Ringers) 1,000 mls @ 75 mls/hr IV .[id number] [facility] Last Admin: 08/08/21 03:46 Dose: 75 mls/hr Documented by: Mycophenolate Mofetil (Mycophenolate Mofetil 500 Mg Tablet) 500 mg PO BID [facility] Last Admin: 08/07/21 18:41 Dose: 500 mg Documented by: Ondansetron HCl (Ondansetron 2 Mg/Ml Sdv 2 Ml) 4 mg IVP Q8H PRN PRN Reason: vomiting, or N/V if npo Tacrolimus (Tacrolimus 0.5 Mg Capsule) 1 mg PO BID [facility] Last Admin: 08/07/21 18:42 Dose: 1 mg Documented by: Tamsulosin HCl (Tamsulosin 0.4 Mg Capsule) 0.4 mg PO BEDTIME@2100 [facility] Last Admin: 08/07/21 22:22 Dose: 0.4 mg Documented by: Vitamin D (Cholecalciferol (Vitamin D3) 1,000 Unit Tablet) 2,000 unit PO DAILY [facility] Last Admin: 08/07/21 08:13 Dose: 2,000 unit Documented by: Warfarin Sodium (Warfarin 5 Mg Tablet) 5 mg PO MoSa [facility] Zinc Gluconate (Zinc Gluconate 50 Mg Tablet) 50 mg PO DAILY [facility] Last Admin: 08/07/21 08:12 Dose: 50 mg Documented by: Vitals/I&O/Wt Last Vital Signs Temp 97.8 F 08/08/21 03:38 Pulse 71 08/08/21 08:31 Resp 18 08/08/21 08:31 BP 171/84 08/08/21 07:38 Pulse Ox 93 08/08/21 08:31 08/07/21 08/08/21 08/08/21 22:59 06:59 14:59 Intake Total 1440 / 2160 1600 / 3760 Output Total 1750 / 2425 Balance 1440 / 1485 -150 / 1335 Weight last 48 hrs Weight 88.949 kg Weight 97.976 kg Physical Exam Narrative: comfortable, NARD vss heent- nc/at, eomi neck supple lungs improved air movement b/l heart- +s1, s2, no rub abd soft, nt, nd, + bs ext no edema neuro a,a, o x 3 Data : 08/08/21 04:19 08/08/21 04:19 Micro: Microbiology 08/03/21 08:25 Blood Culture - Final Blood NO GROWTH AFTER 5 DAYS A&P Assessment and plan (1) Hx of kidney transplant: 76 yr old man Renal tx w/ CKD stage 3 - baseline cr 1.4 mg/dl. Pt here w/ COVID-19 pna 1. renal tx w/ CKD stage 3 -pth 147 2. MIREILLE in renal tx- cr improved from 2.8 to 1.5 mg/dl- close to baseline Allograft kidney -cont prograf and cellcept Close monitoring of renal function over the next few days Avoid usual nephrotoxic agents 3. non AGMA from ns ivf and ckd 4. DM control per medicine. 5. hyperkalmeia -low k diet 5. INR 6.45- hold coumadin- repeat inr 6. covid -19 per medicine Patient seen and examined via telemedicine, with the assistance of the bedside RN 30 min spent in evaluation and mgmt of patient Status: Chronic Plan see above Attestations Medical Necessity Statement*: renal transplant MIREILLE-improving Time Spent in Patient Care: 16 - 35 minutes (>than 50% of time spent in counselling and/or direct pt care on unit) . 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
--- NOTE | 2021-08-08 08:53 | PC.SOCIAL ---
IMM Update Pg. 2 of IMM updated and reviewed with patient, who verbalized understanding. Copy provided.
[2021-08-08] MEDS: carvedilol 25 mg Tablet PO (09:38)
[2021-08-08] MEDS: aspirin 81 mg EC Tablet PO (09:38)
[2021-08-08] MEDS: atorvastatin 40 mg Tablet 20 MG PO (09:38)
[2021-08-08] MEDS: cetirizine 10 mg Tablet PO (09:38)
[2021-08-08] MEDS: ascorbic acid 500 mg Tablet PO (09:38)
[2021-08-08] MEDS: zinc gluconate 50 mg Tablet PO (09:38)
[2021-08-08] MEDS: cholecalciferol (vitamin D3) 1,000 unit Tablet 2000 UNIT PO (09:38)
[2021-08-08] MEDS: tacrolimus 0.5 mg Capsule 1 MG PO (09:39)
[2021-08-08 10:17] VITALS: O2SAT 97; O2SAT 98
--- NOTE | 2021-08-08 11:32 | PM.DCS ---
Discharge Providers Date of Admission: 08/03/21 18:47 Date of Discharge: August 08, 2021 Attending Provider at Admission: Shannon Ashley MD Attending Provider at Discharge: Angel Souza MD Primary Care Provider: Mercy Priest MD Diagnoses at Discharge Discharge Diagnosis (1) Hx of kidney transplant: Status: Chronic Permanent problem details: [facility] Reason for Visit Reason for Visit: SOB Discharge Data Studies Completed and Pending Completed Studies During Hospitalization Category Date Time Status XR chest 1V portable [id number] Stat Exams 08/01/21 12:32 Completed XR chest 1V portable [id number] Stat Exams 08/03/21 07:44 Completed XR foot RT 2V [id number] Urgent Exams 08/01/21 16:52 Completed CV. echo limited [id number] Routine Ultrasound 08/04/21 20:31 Completed Pending at discharge Category Date Time Status Beta-Hydroxybutyrate Stat Lab 08/05/21 06:18 Received Complete Blood Count w/Auto AM LABS Lab 08/09/21 04:00 Ordered Complete Blood Count w/Auto AM LABS Lab 08/10/21 04:00 Ordered Complete Blood Count w/Auto AM LABS Lab 08/11/21 04:00 Ordered Comprehensive Metabolic Panel AM LABS Lab 08/09/21 04:00 Ordered Comprehensive Metabolic Panel AM LABS Lab 08/10/21 04:00 Ordered Comprehensive Metabolic Panel AM LABS Lab 08/11/21 04:00 Ordered FK 506 (Tacrolimus) PRE TREATMENT Lab 08/09/21 08:00 Ordered Magnesium AM LABS Lab 08/09/21 04:00 Ordered Magnesium AM LABS Lab 08/10/21 04:00 Ordered Magnesium AM LABS Lab 08/11/21 04:00 Ordered Phosphorus AM LABS Lab 08/09/21 04:00 Ordered Phosphorus AM LABS Lab 08/10/21 04:00 Ordered Phosphorus AM LABS Lab 08/11/21 04:00 Ordered Prothrombin Time INR AM LABS Lab 08/09/21 04:00 Ordered Prothrombin Time INR AM LABS Lab 08/10/21 04:00 Ordered Cytology [PTH] Routine Pth 08/03/21 11:35 Uncollected Radiology Impressions Foot X-Ray 08/01/21 16:52 IMPRESSION: Stable examination post dilatation of the right fifth toe. No findings of osteomyelitis. Chest X-Ray 08/03/21 07:44 IMPRESSION: Suspect superimposition of subacute lung process on chronic central lobar emphysema. This could be pneumonitis or pulmonary edema. Findings are more prominent on the current examination. Laboratory Results WBC 7.3 10^3/uL (4.0-10.0) 08/08/21 04:19 RBC 4.07 10^6/uL (4.1-5.3) L 08/08/21 04:19 Hgb 10.7 g/dL (11.7-16.6) L 08/08/21 04:19 Hct 35.3 % (42.0-52.0) L 08/08/21 04:19 MCV 86.7 fl (80-94) 08/08/21 04:19 MCH 26.3 pg (28.0-34.0) L 08/08/21 04:19 MCHC 30.3 g/dL (30.0-36.0) 08/08/21 04:19 RDW 14.0 % (12.1-15.1) 08/08/21 04:19 Plt Count 157 10^3/cmm (130-400) 08/08/21 04:19 MPV 10.1 fL (7.4-10.4) 08/08/21 04:19 Neut % (Auto) 84.1 % 08/08/21 04:19 Lymph % (Auto) 9.5 % 08/08/21 04:19 Dare % (Auto) 5.2 % 08/08/21 04:19 Eos % (Auto) 0.0 % 08/08/21 04:19 Baso % (Auto) 0.0 % 08/08/21 04:19 Neut # (Auto) 6.11 10^3/uL (1.8-7.7) 08/08/21 04:19 Lymph # (Auto) 0.7 10^3/uL (0.8-4.8) L 08/08/21 04:19 Dare # (Auto) 0.4 10^3/uL (0.2-0.9) 08/08/21 04:19 Eos # (Auto) 0.0 10^3/uL (0.0-0.8) 08/08/21 04:19 Baso # (Auto) 0.0 10^3/uL (0.0-0.1) 08/08/21 04:19 Nucleated RBC % (auto) 0 % 08/08/21 04:19 Nucleated RBCs # 0.0 /100WBC 08/08/21 04:19 PT 57.20 SECONDS (12.1-14.9) H 08/08/21 04:19 INR 6.45 (0.8-1.2) H* 08/08/21 04:19 Fibrinogen 551 mg/dL (174-498) H 08/03/21 08:37 D-Dimer 1.19 ug/mIFEU (0-0.59) H 08/01/21 17:23 Specimen Type Arterial 08/05/21 09:16 Sample Site Brachial, left 08/05/21 09:16 ABG pH 7.39 (7.35-7.45) 08/05/21 09:16 ABG pCO2 28.6 mmHg (35-45) L 08/05/21 09:16 ABG pO2 86.6 mmHg (80.0-100.0) 08/05/21 09:16 ABG HCO3 17.2 mmol/L (22-26) L 08/05/21 09:16 ABG O2 Saturation 96.8 08/05/21 09:16 ABG Base Excess -6.8 mmol/L (-2.0-2.0) L 08/05/21 09:16 Kiran Test Pos 08/05/21 09:16 A-a O2 Gradient 10.1 mmHg (5-10) H 08/05/21 09:16 Hematocrit 33.7 % (42-52) L 08/05/21 09:16 Hgb O2 Saturation 95.0 % (95-100) 08/05/21 09:16 Carboxyhemoglobin 0.6 %THgb (0.4-20.1) 08/05/21 09:16 Methemoglobin 1.2 % (0.4-1.5) 08/05/21 09:16 Total Hemoglobin 11.0 g/dL (14-18) L 08/05/21 09:16 Sodium 129.0 mmol/L (131-143) L 08/05/21 09:16 Potassium 4.8 mmol/L (3.5-5.0) 08/05/21 09:16 Glucose 529.0 mg/dL (70-115) H 08/05/21 09:16 Ionized Calcium 1.2 mmol/L (1.1-1.4) 08/05/21 09:16 O2 Delivery Device Nc 08/05/21 09:16 O2 Liters/Min 2.0 % 08/05/21 09:16 FiO2 28.0 % 08/05/21 09:16 Dental Service Chief ID Db 08/05/21 09:16 Sodium 138 mmol/L (136-145) 08/08/21 04:19 Potassium 5.2 mmol/L (3.5-5.1) H 08/08/21 04:19 Chloride 108 mmol/L (98-107) H 08/08/21 04:19 Carbon Dioxide 19 mmol/L (22-29) L 08/08/21 04:19 Anion Gap 16.2 (5-19) 08/08/21 04:19 BUN 66 mg/dL (8-23) H 08/08/21 04:19 Creatinine 1.5 mg/dL (0.7-1.2) H 08/08/21 04:19 GFR Calculation Not Reportable 08/08/21 04:19 Glucose 147 mg/dL (65-115) H 08/08/21 04:19 POC Glucose 147 mg/dL (70-110) H 08/08/21 06:01 Estimat Average Glucose 157 08/04/21 06:16 Hemoglobin A1c 7.1 % (4.0-6.0) H 08/04/21 06:16 Calculated Osmolality 308 mOsm/kg (285-295) H 08/08/21 04:19 Lactic Acid 1.0 mmol/L (0.5-2.2) 08/03/21 08:37 Lactate 1.8 mmol/L (0.5-2.2) 08/04/21 16:15 Calcium 8.6 mg/dL (8.5-10.5) 08/08/21 04:19 Phosphorus 3.3 mg/dL (2.5-4.5) 08/08/21 04:19 Magnesium 1.7 mg/dL (1.7-2.3) 08/07/21 03:26 Ferritin 980 ng/mL (30-400) H 08/04/21 10:26 Total Bilirubin 0.4 mg/dL (0.15-1.2) 08/08/21 04:19 AST 15 U/L (0-40) 08/08/21 04:19 ALT 14 U/L (0-41) 08/08/21 04:19 Alkaline Phosphatase 69 IU/L (40-130) 08/08/21 04:19 Creatine Kinase 111 U/L (39-308) 08/03/21 08:37 Troponin T Gen 5 ng/L 104 ng/L (0-15) H* 08/03/21 08:37 Troponin T Baseline 125 ng/L (0-15) H* 08/01/21 14:38 Troponin T 120 Minute 114.2 ng/L (0-15) H 08/01/21 16:29 Delta Troponin T -10.8 ABS# (0-10) L 08/01/21 16:29 Troponin T Hi Sens 6Hr 97.84 ng/L (0-15) H 08/01/21 20:28 Troponin T Hi Sens 6Hr Delta -27.16 ng/L (0-12) L 08/01/21 20:28 C-Reactive Protein 74.9 mg/L (0.0-4.9) H 08/04/21 10:26 NT-Pro-B Natriuret Pep 82679 pg/mL (0-125) H 08/03/21 08:37 Total Protein 4.7 g/dL (6.6-8.7) L 08/08/21 04:19 Albumin 2.8 g/dL (3.5-5.2) L 08/08/21 04:19 Globulin 1.9 g/dL (1.3-4.6) 08/08/21 04:19 Lipase 13 U/L (13-60) 08/01/21 14:38 Procalcitonin 0.47 ng/mL (0-0.5) 08/03/21 08:37 Urine Color Yellow (Yellow) 08/05/21 19:20 Urine Appearance Clear (CLEAR) 08/05/21 19:20 Urine pH 5 (5-7) 08/05/21 19:20 Ur Specific [place] 1.020 (1.005-1.030) 08/05/21 19:20 Urine Protein Neg (Negative) 08/05/21 19:20 Urine Glucose (UA) 2+ (Normal) H 08/05/21 19:20 Urine Ketones Negative (Negative) 08/05/21 19:20 Urine Blood Neg (Negative) 08/05/21 19:20 Urine Nitrate Negative (Negative) 08/05/21 19:20 Urine Bilirubin Neg (Negative) 08/05/21 19:20 Urine Urobilinogen Norm mg/dL (Negative) 08/05/21 19:20 Ur Leukocyte Esterase Negative (Negative) 08/05/21 19:20 Ur Microscopic Indic Cancelled 08/03/21 15:15 Urine RBC 0-4 /hpf (0-2) H 08/05/21 19:20 Urine WBC 5-10 /hpf (0-5) H 08/05/21 19:20 Ur Squamous Epith Cells 0-4 /hpf (0-5) H 08/05/21 19:20 Amorphous Sediment 1+ /hpf 08/05/21 19:20 Urine Bacteria Trace /hpf (NONE) 08/05/21 19:20 Hyaline Casts 0-4 /lpf H 08/05/21 19:20 Urine Mucus Trace /hpf 08/05/21 19:20 Vancomycin Trough 7.4 ug/mL (10-15) L 08/07/21 03:26 Digoxin 2.1 ng/mL (0.6-1.2) H 08/05/21 06:18 Serum Ketones Positive (Negative) H 08/05/21 06:18 Coronavirus 229E (PCR) Not detected (NOT DETECT) 08/01/21 17:17 SARS-CoV-2 (PCR) Detected (NOT DETECT) A 08/01/21 17:17 SARS-CoV-2 Ag (Rapid) Negative (Negative) 08/01/21 16:53 Vitals Last Vital Signs Temp 97.8 F 08/08/21 03:38 Pulse 71 08/08/21 08:31 Resp 18 08/08/21 08:31 BP 171/84 08/08/21 07:38 Pulse Ox 97 08/08/21 10:17 Discharge Plan Discharge Patient Disposition: Home Condition: Stable Prescriptions: New albuterol sulfate 90 mcg/actuation HFA aerosol inhaler 2 inh inhalation Q8H PRN (Reason: shortness of breath or wheezing) Qty: 8.5 3RF Continued tramadol 50 mg tablet 50 mg PO BID PRN (Reason: pain) Qty: 45 0RF methylprednisolone acetate [Depo-Medrol] 40 mg/mL suspension 40 mg Infiltration ONCE Qty: 1 0RF atorvastatin [Lipitor] 20 mg tablet 20 mg PO BEDTIME@2099 Qty: 90 1RF mycophenolate mofetil 250 mg capsule 500 mg PO BID@899,2099 0RF prednisone 5 mg tablet 5 mg PO DAILY@00 0RF cholecalciferol (vitamin D3) 3,000 unit tablet 3,000 unit PO DAILY@0900 0RF cetirizine [All Day Allergy (cetirizine)] 10 mg tablet 10 mg PO DAILY@09 0RF aspirin [Adult Low Dose Aspirin] 81 mg tablet,delayed release (DR/EC) 81 mg PO DAILY@09 0RF famotidine 20 mg tablet 20 mg PO DAILY@ 0RF furosemide 20 mg tablet 20 mg PO DAILY PRN (Reason: Edema) 0RF amlodipine 5 mg tablet 10 mg PO DAILY@0900 Qty: 180 2RF insulin aspart U-100 [Novolog U-100 Insulin aspart] 100 unit/mL solution See Rx Instructions .ROUTE .COMPLEX Qty: 10 6RF Rx Instructions: basal-midnight to 7 am-.800 units per hour basal-07:00 to 13:00-1.00 units per hour basal-13:00 to 19:00-1.20 units per hour basal-19:00 to 00:00-1.20 units per hour meal bolus-1 unit per 8 carbs sodium bicarbonate 650 mg tablet 1,300 mg PO TID@, 0RF tamsulosin 0.4 mg capsule 0.4 mg PO BEDTIME@2099 0RF lisinopril 40 mg tablet 40 mg PO DAILY@ 0RF tacrolimus 1 mg capsule 1 mg PO BID@ 0RF carvedilol 25 mg tablet 25 mg PO BID@ 0RF Rx Instructions: Check heartrate prior to taking, if 60 or below only take 12.5mg (1/2 tablet) hydralazine 100 mg tablet 100 mg PO TID@, 0RF hydrochlorothiazide 12.5 mg tablet 25 mg PO DAILY@ 0RF Held warfarin 5 mg tablet See Rx Instructions .ROUTE .COMPLEX Qty: 90 3RF Hold Instructions: Resume on 08/11/21. recheck INR Rx Instructions: 2.5mg po daily @09:00 on sun and fri, 5mg on fri and fri, 7.5mg on , and nothing on fri and digoxin 125 mcg (0.125 mg) tablet 125 mcg PO DAILY@0900 0RF Hold Instructions: Resume on 08/22/21. Discharge Orders: Discharge Order (Routine); Ordered 08/08/21 Ordered By: Angel Souza Other Ambulatory Orders: Digoxin (Routine) Timeframe: 3 Days Facility: [facility] - Location: Lab - Main Lab Ordered By: nAgel Souza Prothrombin Time INR ( DIRECTED) Timeframe: 20210811 Facility: [facility] - Location: Lab - Main Lab Ordered By: Angel Souza Prothrombin Time INR ( DIRECTED) Timeframe: 20210812 Facility: [facility] - Location: Lab - Main Lab Ordered By: Angel Souza Prothrombin Time INR ( DIRECTED) Timeframe: 20210813 Facility: [facility] - Location: Lab - Main Lab Ordered By: Angel Souza Referrals: Mercy Priest MD [Primary Care Provider] - 08/13/21 11:00 am () Discharge Diet: Diabetic Discharge Activity: Increase activity as tolerated Patient Instructions: Opioid Safety Discharge Attestations Time Spent in Discharge Care*: less than 30 min Quality Metrics Clinical Quality Measures [ No reported AMI, CVA or VTE this stay] Coding Level of Care Code Acute Chg FW DC note Diagnoses Hx of kidney transplant Z94.0
--- NOTE | 2021-08-08 11:49 | PM.DCS ---
Discharge Providers Date of Admission: 08/03/21 18:47 Date of Discharge: August 08, 2021 Attending Provider at Admission: Shannon Ashley MD Attending Provider at Discharge: Angel Souza MD Primary Care Provider: Mercy Priest MD Diagnoses at Discharge Discharge Diagnosis (1) Hx of kidney transplant: Status: Chronic Permanent problem details: [facility] Reason for Visit Reason for Visit: SOB Hospital Course Hospital Course Patient was admitted on 08/03 for management of hyperglycemia, COVID-19 loaded hypoxia. Initially he was requiring 2 to 3 L of oxygen however we were able to wean him off to room air. History of kidney transplant, his creatinine was high at the time of admission, nephrology was consulted, he waited for a long time in the ER however we were not able to find a bed at u. After initiation of Decadron he went into DKA, was transferred to ICU, DKA resolved within 18 to 20 hours, after DKA resolved he required 41 units of insulin and that did not make a significant difference to control his blood sugar they were consistently above 400s. I asked his to bring insulin from home and start insulin pump which significantly improved his blood sugar levels. Patient will be discharged home on 08/08 without significant change in his home medications. Nephrology did start mycophenolate and tacrolimus during this hospitalization. His creatinine improved significantly after resolution of DKA. Creatinine on admission 2.0, peaked at 2.8, at the time of discharge 1.5 after IV fluid hydration. His transfers was counseled I called transfer line myself. For his A. fib he takes Coumadin, he remained supratherapeutic, digoxin level was also high I am holding Coumadin and digoxin, giving him prescription to get his INR checked, he will also get digoxin level checked within few days Physical Exam Narrative: Patient was laying flat No orthopnea PND No signs of fluid overload Doing well on room air Abdomen soft No audible stridor or wheezing Nonfocal neuro exam at the bedside Alert oriented Discharge Data Studies Completed and Pending Completed Studies During Hospitalization Category Date Time Status XR chest 1V portable [id number] Stat Exams 08/01/21 12:32 Completed XR chest 1V portable [id number] Stat Exams 08/03/21 07:44 Completed XR foot RT 2V [id number] Urgent Exams 08/01/21 16:52 Completed CV. echo limited [id number] Routine Ultrasound 08/04/21 20:31 Completed Pending at discharge Category Date Time Status Beta-Hydroxybutyrate Stat Lab 08/05/21 06:18 Received Complete Blood Count w/Auto AM LABS Lab 08/09/21 04:00 Ordered Complete Blood Count w/Auto AM LABS Lab 08/10/21 04:00 Ordered Complete Blood Count w/Auto AM LABS Lab 08/11/21 04:00 Ordered Comprehensive Metabolic Panel AM LABS Lab 08/09/21 04:00 Ordered Comprehensive Metabolic Panel AM LABS Lab 08/10/21 04:00 Ordered Comprehensive Metabolic Panel AM LABS Lab 08/11/21 04:00 Ordered FK [id number] (Tacrolimus) PRE TREATMENT Lab 08/09/21 08:00 Ordered Magnesium AM LABS Lab 08/09/21 04:00 Ordered Magnesium AM LABS Lab 08/10/21 04:00 Ordered Magnesium AM LABS Lab 08/11/21 04:00 Ordered Phosphorus AM LABS Lab 08/09/21 04:00 Ordered Phosphorus AM LABS Lab 08/10/21 04:00 Ordered Phosphorus AM LABS Lab 08/11/21 04:00 Ordered Prothrombin Time INR AM LABS Lab 08/09/21 04:00 Ordered Prothrombin Time INR AM LABS Lab 08/10/21 04:00 Ordered Cytology [PTH] Routine Pth 08/03/21 11:35 Uncollected Radiology Impressions Foot X-Ray 08/01/21 16:52 IMPRESSION: Stable examination post dilatation of the right fifth toe. No findings of osteomyelitis. Chest X-Ray 08/03/21 07:44 IMPRESSION: Suspect superimposition of subacute lung process on chronic central lobar emphysema. This could be pneumonitis or pulmonary edema. Findings are more prominent on the current examination. Laboratory Results WBC 7.3 10^3/uL (4.0-10.0) 08/08/21 04:19 RBC 4.07 10^6/uL (4.1-5.3) L 08/08/21 04:19 Hgb 10.7 g/dL (11.7-16.6) L 08/08/21 04:19 Hct 35.3 % (42.0-52.0) L 08/08/21 04:19 MCV 86.7 fl (80-94) 08/08/21 04:19 MCH 26.3 pg (28.0-34.0) L 08/08/21 04:19 MCHC 30.3 g/dL (30.0-36.0) 08/08/21 04:19 RDW 14.0 % (12.1-15.1) 08/08/21 04:19 Plt Count 157 10^3/cmm (130-400) 08/08/21 04:19 MPV 10.1 fL (7.4-10.4) 08/08/21 04:19 Neut % (Auto) 84.1 % 08/08/21 04:19 Lymph % (Auto) 9.5 % 08/08/21 04:19 [place] % (Auto) 5.2 % 08/08/21 04:19 Eos % (Auto) 0.0 % 08/08/21 04:19 Baso % (Auto) 0.0 % 08/08/21 04:19 Neut # (Auto) 6.11 10^3/uL (1.8-7.7) 08/08/21 04:19 Lymph # (Auto) 0.7 10^3/uL (0.8-4.8) L 08/08/21 04:19 [place] # (Auto) 0.4 10^3/uL (0.2-0.9) 08/08/21 04:19 Eos # (Auto) 0.0 10^3/uL (0.0-0.8) 08/08/21 04:19 Baso # (Auto) 0.0 10^3/uL (0.0-0.1) 08/08/21 04:19 Nucleated RBC % (auto) 0 % 08/08/21 04:19 Nucleated RBCs # 0.0 /100WBC 08/08/21 04:19 PT 57.20 SECONDS (12.1-14.9) H 08/08/21 04:19 INR 6.45 (0.8-1.2) H* 08/08/21 04:19 Fibrinogen 551 mg/dL (174-498) H 08/03/21 08:37 D-Dimer 1.19 ug/mIFEU (0-0.59) H 08/01/21 17:23 Specimen Type Arterial 08/05/21 09:16 Sample Site Brachial, left 08/05/21 09:16 ABG pH 7.39 (7.35-7.45) 08/05/21 09:16 ABG pCO2 28.6 mmHg (35-45) L 08/05/21 09:16 ABG pO2 86.6 mmHg (80.0-100.0) 08/05/21 09:16 ABG HCO3 17.2 mmol/L (22-26) L 08/05/21 09:16 ABG O2 Saturation 96.8 08/05/21 09:16 ABG Base Excess -6.8 mmol/L (-2.0-2.0) L 08/05/21 09:16 Kiran Test Pos 08/05/21 09:16 A-a O2 Gradient 10.1 mmHg (5-10) H 08/05/21 09:16 Hematocrit 33.7 % (42-52) L 08/05/21 09:16 Hgb O2 Saturation 95.0 % (95-100) 08/05/21 09:16 Carboxyhemoglobin 0.6 %THgb (0.4-20.1) 08/05/21 09:16 Methemoglobin 1.2 % (0.4-1.5) 08/05/21 09:16 Total Hemoglobin 11.0 g/dL (14-18) L 08/05/21 09:16 Sodium 129.0 mmol/L (131-143) L 08/05/21 09:16 Potassium 4.8 mmol/L (3.5-5.0) 08/05/21 09:16 Glucose 529.0 mg/dL (70-115) H 08/05/21 09:16 Ionized Calcium 1.2 mmol/L (1.1-1.4) 08/05/21 09:16 O2 Delivery Device Nc 08/05/21 09:16 O2 Liters/Min 2.0 % 08/05/21 09:16 FiO2 28.0 % 08/05/21 09:16 Gyroscopic Engineering Technician ID [place] 08/05/21 09:16 Sodium 138 mmol/L (136-145) 08/08/21 04:19 Potassium 5.2 mmol/L (3.5-5.1) H 08/08/21 04:19 Chloride 108 mmol/L (98-107) H 08/08/21 04:19 Carbon Dioxide 19 mmol/L (22-29) L 08/08/21 04:19 Anion Gap 16.2 (5-19) 08/08/21 04:19 BUN 66 mg/dL (8-23) H 08/08/21 04:19 Creatinine 1.5 mg/dL (0.7-1.2) H 08/08/21 04:19 GFR Calculation Not Reportable 08/08/21 04:19 Glucose 147 mg/dL (65-115) H 08/08/21 04:19 POC Glucose 147 mg/dL (70-110) H 08/08/21 06:01 Estimat Average Glucose 157 08/04/21 06:16 Hemoglobin A1c 7.1 % (4.0-6.0) H 08/04/21 06:16 Calculated Osmolality 308 mOsm/kg (285-295) H 08/08/21 04:19 Lactic Acid 1.0 mmol/L (0.5-2.2) 08/03/21 08:37 Lactate 1.8 mmol/L (0.5-2.2) 08/04/21 16:15 Calcium 8.6 mg/dL (8.5-10.5) 08/08/21 04:19 Phosphorus 3.3 mg/dL (2.5-4.5) 08/08/21 04:19 Magnesium 1.7 mg/dL (1.7-2.3) 08/07/21 03:26 Ferritin 980 ng/mL (30-400) H 08/04/21 10:26 Total Bilirubin 0.4 mg/dL (0.15-1.2) 08/08/21 04:19 AST 15 U/L (0-40) 08/08/21 04:19 ALT 14 U/L (0-41) 08/08/21 04:19 Alkaline Phosphatase 69 IU/L (40-130) 08/08/21 04:19 Creatine Kinase 111 U/L (39-308) 08/03/21 08:37 Troponin T Gen 5 ng/L 104 ng/L (0-15) H* 08/03/21 08:37 Troponin T Baseline 125 ng/L (0-15) H* 08/01/21 14:38 Troponin T 120 Minute 114.2 ng/L (0-15) H 08/01/21 16:29 Delta Troponin T -10.8 ABS# (0-10) L 08/01/21 16:29 Troponin T Hi Sens 6Hr 97.84 ng/L (0-15) H 08/01/21 20:28 Troponin T Hi Sens 6Hr Delta -27.16 ng/L (0-12) L 08/01/21 20:28 C-Reactive Protein 74.9 mg/L (0.0-4.9) H 08/04/21 10:26 NT-Pro-B Natriuret Pep 73560 pg/mL (0-125) H 08/03/21 08:37 Total Protein 4.7 g/dL (6.6-8.7) L 08/08/21 04:19 Albumin 2.8 g/dL (3.5-5.2) L 08/08/21 04:19 Globulin 1.9 g/dL (1.3-4.6) 08/08/21 04:19 Lipase 13 U/L (13-60) 08/01/21 14:38 Procalcitonin 0.47 ng/mL (0-0.5) 08/03/21 08:37 Urine Color Yellow (Yellow) 08/05/21 19:20 Urine Appearance Clear (CLEAR) 08/05/21 19:20 Urine pH 5 (5-7) 08/05/21 19:20 Ur Specific [place] 1.020 (1.005-1.030) 08/05/21 19:20 Urine Protein Neg (Negative) 08/05/21 19:20 Urine Glucose (UA) 2+ (Normal) H 08/05/21 19:20 Urine Ketones Negative (Negative) 08/05/21 19:20 Urine Blood Neg (Negative) 08/05/21 19:20 Urine Nitrate Negative (Negative) 08/05/21 19:20 Urine Bilirubin Neg (Negative) 08/05/21 19:20 Urine Urobilinogen Norm mg/dL (Negative) 08/05/21 19:20 Ur Leukocyte Esterase Negative (Negative) 08/05/21 19:20 Ur Microscopic Indic Cancelled 08/03/21 15:15 Urine RBC 0-4 /hpf (0-2) H 08/05/21 19:20 Urine WBC 5-10 /hpf (0-5) H 08/05/21 19:20 Ur Squamous Epith Cells 0-4 /hpf (0-5) H 08/05/21 19:20 Amorphous Sediment 1+ /hpf 08/05/21 19:20 Urine Bacteria Trace /hpf (NONE) 08/05/21 19:20 Hyaline Casts 0-4 /lpf H 08/05/21 19:20 Urine Mucus Trace /hpf 08/05/21 19:20 Vancomycin Trough 7.4 ug/mL (10-15) L 08/07/21 03:26 Digoxin 2.1 ng/mL (0.6-1.2) H 08/05/21 06:18 Serum Ketones Positive (Negative) H 08/05/21 06:18 Coronavirus 229E (PCR) Not detected (NOT DETECT) 08/01/21 17:17 SARS-CoV-2 (PCR) Detected (NOT DETECT) A 08/01/21 17:17 SARS-CoV-2 Ag (Rapid) Negative (Negative) 08/01/21 16:53 Vitals Last Vital Signs Temp 97.8 F 08/08/21 03:38 Pulse 71 08/08/21 08:31 Resp 18 08/08/21 08:31 BP 171/84 08/08/21 07:38 Pulse Ox 97 08/08/21 10:17 Discharge Plan Discharge Patient Disposition: Home Condition: Stable Prescriptions: New albuterol sulfate 90 mcg/actuation HFA aerosol inhaler 2 inh inhalation Q8H PRN (Reason: shortness of breath or wheezing) Qty: 8.5 3RF Continued tramadol 50 mg tablet 50 mg PO BID PRN (Reason: pain) Qty: 45 0RF methylprednisolone acetate [Depo-Medrol] 40 mg/mL suspension 40 mg Infiltration ONCE Qty: 1 0RF atorvastatin [Lipitor] 20 mg tablet 20 mg PO BEDTIME@2100 Qty: 90 1RF mycophenolate mofetil 250 mg capsule 500 mg PO BID@0900,2100 0RF prednisone 5 mg tablet 5 mg PO DAILY@0900 0RF cholecalciferol (vitamin D3) 3,000 unit tablet 3,000 unit PO DAILY@0900 0RF cetirizine [All Day Allergy (cetirizine)] 10 mg tablet 10 mg PO DAILY@09 0RF aspirin [Adult Low Dose Aspirin] 81 mg tablet,delayed release (DR/EC) 81 mg PO DAILY@09 0RF famotidine 20 mg tablet 20 mg PO DAILY@09 0RF furosemide 20 mg tablet 20 mg PO DAILY PRN (Reason: Edema) 0RF amlodipine 5 mg tablet 10 mg PO DAILY@0900 Qty: 180 2RF insulin aspart U-100 [Novolog U-100 Insulin aspart] 100 unit/mL solution See Rx Instructions .ROUTE .COMPLEX Qty: 10 6RF Rx Instructions: basal-midnight to 7 am-.800 units per hour basal-07:00 to 13:00-1.00 units per hour basal-13:00 to 19:00-1.20 units per hour basal-19:00 to 00:00-1.20 units per hour meal bolus-1 unit per 8 carbs sodium bicarbonate 650 mg tablet 1,300 mg PO TID@,, 0RF tamsulosin 0.4 mg capsule 0.4 mg PO BEDTIME@2099 0RF lisinopril 40 mg tablet 40 mg PO DAILY@ 0RF tacrolimus 1 mg capsule 1 mg PO BID@ 0RF carvedilol 25 mg tablet 25 mg PO BID@, 0RF Rx Instructions: Check heartrate prior to taking, if 60 or below only take 12.5mg (1/2 tablet) hydralazine 100 mg tablet 100 mg PO TID@,, 0RF hydrochlorothiazide 12.5 mg tablet 25 mg PO DAILY@ 0RF Held warfarin 5 mg tablet See Rx Instructions .ROUTE .COMPLEX Qty: 90 3RF Hold Instructions: Resume on 08/11/21. recheck INR Rx Instructions: 2.5mg po daily @09:00 on sun and fri, 5mg on fri and fri, 7.5mg on , and nothing on fri and digoxin 125 mcg (0.125 mg) tablet 125 mcg PO DAILY@0900 0RF Hold Instructions: Resume on 08/22/21. Discharge Orders: Discharge Order (Routine); Ordered 08/08/21 Ordered By: Angel Souza Other Ambulatory Orders: Digoxin (Routine) Timeframe: 3 Days Facility: [facility] - Location: Lab - Main Lab Ordered By: Angel Souza Prothrombin Time INR ( DIRECTED) Timeframe: 20210811 Facility: [facility] - Location: Lab - Main Lab Ordered By: Angel Souza Prothrombin Time INR ( DIRECTED) Timeframe: 20210812 Facility: [facility] - Location: Lab - Main Lab Ordered By: Angel Souza Prothrombin Time INR ( DIRECTED) Timeframe: 20210813 Facility: [facility] - Location: Lab - Main Lab Ordered By: Angel Souza Referrals: Mercy Priest MD [Primary Care Provider] - 08/13/21 11:00 am () Discharge Diet: Diabetic Discharge Activity: Increase activity as tolerated Patient Instructions: Albuterol (By breathing) (ProAir, AccuNeb, Proventil, Proventil..., Chronic Kidney Disease (DC), COVID-19 (Coronavirus Disease 2019) (DC), Opioid Safety Discharge Attestations Time Spent in Discharge Care*: less than 30 min Quality Metrics Clinical Quality Measures [ No reported AMI, CVA or VTE this stay] Coding Level of Care Code Acute Chg DC note Diagnoses Hx of kidney transplant Z94.0
[2021-08-08 12:02] LABS: Glucose Point of Care 212 mg/dL (70-110)
--- NOTE | 2021-08-08 14:19 | PC.NURSE ---
1210 patient and given discharge instructions and verbalized understanding of instructions. patient taken to private vehicle via wheelchair. patient assisted into vehicle.
[2021-08-08 14:23] VITALS: BP 171/84; PULSE 71; RESP 18; TEMP 36.6; O2SAT 93
[2021-08-10 05:23] LABS: Beta-Hydroxybutyrate 2.37 mmol/L
== END 2021-08-08 14:25 | disposition home or self-care (01) | DRG 698 ==
LOC: ER 08-03 18:01 → MEDSURG 08-03 18:47 → ICU 08-05 14:26 → MEDSURG 08-07 16:04
PROVIDERS: Emergency Medicine; Internal Medicine Nephrology; Physician Assistant; Admitting Provider Hospitalist; Emergency Provider Family Medicine; PCP Family Medicine; Visit Provider Internal Medicine
DX: E11.22 Type 2 diabetes mellitus with diabetic chronic kidney disease (principal); U07.1 COVID-19; J12.82 Pneumonia due to coronavirus disease 2019; Z94.0 Kidney transplant status; D68.8 Other specified coagulation defects; D84.821 Immunodeficiency due to drugs; E11.10 Type 2 diabetes mellitus with ketoacidosis without coma; E11.621 Type 2 diabetes mellitus with foot ulcer; E11.51 Type 2 diabetes mellitus with diabetic peripheral angiopathy without gangrene; I12.9 Hypertensive chronic kidney disease with stage 1 through stage 4 chronic kidney disease, or unspecified chronic kidney disease; N18.30 Chronic kidney disease, stage 3 unspecified; Z98.62 Peripheral vascular angioplasty status; Z89.512 Acquired absence of left leg below knee; Z87.440 Personal history of urinary (tract) infections; I25.10 Atherosclerotic heart disease of native coronary artery without angina pectoris; Z95.1 Presence of aortocoronary bypass graft; Z86.16 Personal history of COVID-19; E78.5 Hyperlipidemia, unspecified; I48.0 Paroxysmal atrial fibrillation; N40.0 Benign prostatic hyperplasia without lower urinary tract symptoms; G47.33 Obstructive sleep apnea (adult) (pediatric); Z79.4 Long term (current) use of insulin; Z79.82 Long term (current) use of aspirin; Z79.52 Long term (current) use of systemic steroids; Z79.891 Long term (current) use of opiate analgesic; N17.9 Acute kidney failure, unspecified; Z79.899 Other long term (current) drug therapy; F10.21 Alcohol dependence, in remission
CPT/HCPCS: 36415; 36416; 36592; 36600; 64635; 64636; 71045; 73620; 80048; 80051; 80053; 80162; 80202; 81001; 82009; 82010; 82330; 82550; 82728; 82805; 82962; 83036; 83605; 83690; 83735; 83880; 84100; 84145; 84484; 85025; 85378; 85384; 85610; 86140; 87040; 87086; 87150; 87205; 87426; 87635; 93005; 93308; 96372; 99285; J0610; J1100; J1644; J1815 ×2; J1940; J3370; J7030; J7040; J7050; J7507; J7512; J7517; Q3014

== ENCOUNTER 2021-08-12 21:25 | Emergency (ER) | payer MEDICARE, OTHER, SELFPAY ==
[2021-08-12 21:31] VITALS: BP 191/76; PULSE 81; RESP 16; TEMP 36.4; O2SAT 98; BMI 29.4
--- NOTE | 2021-08-12 21:57 | ED_ITS ---
HPI - Male Genitourinary General: Chief complaint: Urogenital-Male Stated complaint: trouble urinating, had kidnet transplant Time Seen by Provider: 08/12/21 21:37 Source: patient Mode of arrival: ambulatory Limitations: no limitations History of Present Illness: 76-year-old male states that he does have a history of a kidney transplant he was admitted here recently for COVID discharged 2 to 3 days ago. States he been doing well taking Lasix and been urinating states since this morning though he has not been able to urinate. States he feels like his bladder is full and he just cannot get anything out and he is having lower abdominal pain he rates pain a 7 out of 10 denies any worsening improving factors. 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 Aortic root enlargement Arteriovenous fistula of right upper extremity CAD (coronary artery disease) COVID-19 (~09/2020) COVID-19 vaccine administered moderna x 2 doses Diabetes Diabetic ulcer of foot associated with diabetes mellitus due to underlying condition, with fat layer exposed Dyslipidemia Elevated troponin 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 Essential hypertension Generalized weakness Long-term use of high-risk medication cellcept, tacrolimus, and chronic prednisone for transplant status Paroxysmal atrial fibrillation Peripheral artery disease Prostatic enlargement Sleep apnea SVT (supraventricular tachycardia) Warfarin anticoagulation Surgical History History of angioplasty of peripheral vessel (~10/2020) History of arthroscopy of both knees History of cystoscopy History of hand surgery (~2018) right thumb History of neck surgery C6 corpectomy, C5-6, C6-7 anterior discectomy, C5-C7 plate and screw fixation, C5-C7 fusion History of partial amputation of toe of right foot (~2010) right 5th History of repair of right rotator cuff History of selective injection of anesthetic agent around lumbar nerve root L3,4,5 left and right 05/2021 History of shoulder surgery History of tonsillectomy (~2012) Hx of amputation below knee (~2018) Hx of appendectomy Hx of CABG (~2005) Hx of kidney transplant (~2011) [facility] Other postprocedural status radiofrequency ablation right L2-5 08/2019 radiofrequency ablation right L3-S1 06/2021 radiofrequency ablation left L3- S1 07/2021 Status post epidural steroid injection L4-5 right 11/2019 L3,4,5 left and right 05/2021 Family History Other CAD (coronary artery disease) Cancer Diabetes Hypertension Social History Smoking and tobacco status: never smoked Alcohol intake: current Alcohol intake frequency: holidays/special occasions only Adopted: No Household members: spouse Marital status: Current occupational status: retired and disabled Physical Exam Const: COMMON NORMALS: no acute distress, patient oriented x3 and healthy appearing HENMT: COMMON NORMALS: normocephalic and atraumatic HEAD & SCALP: normocephalic and atraumatic Eye: COMMON NORMALS: Equal, round and reactive pupils present and EOMs intact bilaterally PUPIL: Yes Equal, round and reactive pupils present Neck/C-Spine: COMMON NORMALS: full ROM and supple Chest: COMMONS NORMALS: normal inspection of the chest and normal palpation of entire chest wall Resp: COMMON NORMALS: normal respiratory effort, No retractions, No use of accessory muscles and clear to auscultation bilaterally AUSCULTATION: clear to auscultation bilaterally Cardio: COMMON NORMALS: regular rate, regular rhythm and No murmurs present (Cardio) RATE: regular rate RHYTHM: regular rhythm GI: COMMON NORMALS: non-tender and no masses OTHER: Distention and tenderness over bladder Extremity: COMMON NORMALS: normal to inspection and full ROM Neuro: COMMON NORMALS: patient oriented x3, moves all extremities and no focal motor deficits Psych: COMMON NORMALS: mental status grossly normal, Normal thought process present and cooperative THOUGHT PROCESS: Normal thought process present Skin: COMMON NORMALS: no rashes or lesions noted and no wounds GENERAL SKIN EXAM: no rashes or lesions noted Course Vital Signs: Vital signs: Vital Signs Temperature 97.5 F L 08/12/21 21:31 Pulse Rate 82 08/12/21 22:37 Respiratory Rate 17 08/12/21 22:37 Blood Pressure 180/65 08/12/21 22:37 Pulse Oximetry 95 08/12/21 22:37 MDM - Male Medical Decision Making Patient presents here with urinary retention he feels much improved here after Ledezma had over a liter out we will place a leg bag he is to follow-up with urology return if worsening kidney function here is normal Lab Data : 08/12/21 21:58 08/12/21 21:58 Laboratory Results WBC 6.4 10^3/uL (4.0-10.0) 08/12/21 21:58 RBC 4.35 10^6/uL (4.1-5.3) 08/12/21 21:58 Hgb 11.6 g/dL (11.7-16.6) L 08/12/21 21:58 Hct 37.0 % (42.0-52.0) L 08/12/21 21:58 MCV 85.1 fl (80-94) 08/12/21 21:58 MCH 26.7 pg (28.0-34.0) L 08/12/21 21:58 MCHC 31.4 g/dL (30.0-36.0) 08/12/21 21:58 RDW 14.4 % (12.1-15.1) 08/12/21 21:58 Plt Count 176 10^3/cmm (130-400) 08/12/21 21:58 MPV 9.8 fL (7.4-10.4) 08/12/21 21:58 Neut % (Auto) 71.0 % 08/12/21 21:58 Lymph % (Auto) 15.6 % 08/12/21 21:58 [place] % (Auto) 10.8 % 08/12/21 21:58 Eos % (Auto) 1.1 % 08/12/21 21:58 Baso % (Auto) 0.2 % 08/12/21 21:58 Neut # (Auto) 4.52 10^3/uL (1.8-7.7) 08/12/21 21:58 Lymph # (Auto) 1.0 10^3/uL (0.8-4.8) 08/12/21 21:58 [place] # (Auto) 0.7 10^3/uL (0.2-0.9) 08/12/21 21:58 Eos # (Auto) 0.1 10^3/uL (0.0-0.8) 08/12/21 21:58 Baso # (Auto) 0.0 10^3/uL (0.0-0.1) 08/12/21 21:58 Nucleated RBC % (auto) 0 % 08/12/21 21:58 Nucleated RBCs # 0.0 /100WBC 08/12/21 21:58 PT 35.70 SECONDS (12.1-14.9) H 08/12/21 22:35 INR 3.50 (0.8-1.2) H 08/12/21 22:35 Sodium 134 mmol/L (136-145) L 08/12/21 21:58 Potassium 5.6 mmol/L (3.5-5.1) H 08/12/21 21:58 Chloride 101 mmol/L (98-107) 08/12/21 21:58 Carbon Dioxide 20 mmol/L (22-29) L 08/12/21 21:58 Anion Gap 18.6 (5-19) 08/12/21 21:58 BUN 35 mg/dL (8-23) H 08/12/21 21:58 Creatinine 1.5 mg/dL (0.7-1.2) H 08/12/21 21:58 GFR Calculation Not Reportable 08/12/21 21:58 Glucose 185 mg/dL (65-115) H 08/12/21 21:58 Calculated Osmolality 291 mOsm/kg (285-295) 08/12/21 21:58 Calcium 9.7 mg/dL (8.5-10.5) 08/12/21 21:58 Total Bilirubin 1.0 mg/dL (0.15-1.2) 08/12/21 21:58 AST 29 U/L (0-40) 08/12/21 21:58 ALT 21 U/L (0-41) 08/12/21 21:58 Alkaline Phosphatase 109 IU/L (40-130) 08/12/21 21:58 Total Protein 6.4 g/dL (6.6-8.7) L 08/12/21 21:58 Albumin 3.9 g/dL (3.5-5.2) 08/12/21 21:58 Globulin 2.5 g/dL (1.3-4.6) 08/12/21 21:58 Urine Color Yellow (Yellow) 08/12/21 22:18 Urine Appearance Clear (CLEAR) 08/12/21 22:18 Urine pH 7 (5-7) 08/12/21 22:18 Ur Specific [place] 1.005 (1.005-1.030) 08/12/21 22:18 Urine Protein Neg (Negative) 08/12/21 22:18 Urine Glucose (UA) 2+ (Normal) H 08/12/21 22:18 Urine Ketones Negative (Negative) 08/12/21 22:18 Urine Blood 2+ (Negative) H 08/12/21 22:18 Urine Nitrate Negative (Negative) 08/12/21 22:18 Urine Bilirubin Neg (Negative) 08/12/21 22:18 Urine Urobilinogen Norm mg/dL (Negative) 08/12/21 22:18 Ur Leukocyte Esterase Negative (Negative) 08/12/21 22:18 Urine RBC 25-40 /hpf (0-2) H 08/12/21 22:18 Urine WBC 0-4 /hpf (0-5) H 08/12/21 22:18 Ur Squamous Epith Cells 0-4 /hpf (0-5) H 08/12/21 22:18 Amorphous Sediment Not Reportable 08/12/21 22:18 Urine Bacteria 2+ /hpf (NONE) H 08/12/21 22:18 Digoxin 0.3 ng/mL (0.6-1.2) L 08/12/21 21:58 Discharge Plan Discharge Patient Disposition: Home Clinical Impression: Acute retention of urine Condition: Stable Prescriptions: No Action tramadol 50 mg tablet 50 mg PO BID PRN (Reason: pain) Qty: 45 0RF methylprednisolone acetate [Depo-Medrol] 40 mg/mL suspension 40 mg Infiltration ONCE Qty: 1 0RF atorvastatin [Lipitor] 20 mg tablet 20 mg PO BEDTIME@2100 Qty: 90 1RF mycophenolate mofetil 250 mg capsule 500 mg PO BID@899,2099 0RF prednisone 5 mg tablet 5 mg PO DAILY@899 0RF cholecalciferol (vitamin D3) 3,000 unit tablet 3,000 unit PO DAILY@899 0RF cetirizine [All Day Allergy (cetirizine)] 10 mg tablet 10 mg PO DAILY@09 0RF aspirin [Adult Low Dose Aspirin] 81 mg tablet,delayed release (DR/EC) 81 mg PO DAILY@ 0RF famotidine 20 mg tablet 20 mg PO DAILY@ 0RF furosemide 20 mg tablet 20 mg PO DAILY PRN (Reason: Edema) 0RF warfarin 5 mg tablet See Rx Instructions .ROUTE .COMPLEX Qty: 90 3RF Hold Instructions: Resume on 08/11/21. recheck INR Rx Instructions: 2.5mg po daily @09:00 on fri and fri, 5mg on fri and fri, 7.5mg on , and nothing on fri and amlodipine 5 mg tablet 10 mg PO DAILY@0900 Qty: 180 2RF insulin aspart U-100 [Novolog U-100 Insulin aspart] 100 unit/mL solution See Rx Instructions .ROUTE .COMPLEX Qty: 10 6RF Rx Instructions: basal-midnight to 7 am-.800 units per hour basal-07:00 to 13:00-1.00 units per hour basal-13:00 to 19:00-1.20 units per hour basal-19:00 to 00:00-1.20 units per hour meal bolus-1 unit per 8 carbs sodium bicarbonate 650 mg tablet 1,300 mg PO TID@ 0RF tamsulosin 0.4 mg capsule 0.4 mg PO BEDTIME@2099 0RF digoxin 125 mcg (0.125 mg) tablet 125 mcg PO DAILY@899 0RF Hold Instructions: Resume on 08/22/21. lisinopril 40 mg tablet 40 mg PO DAILY@ 0RF tacrolimus 1 mg capsule 1 mg PO BID@ 0RF carvedilol 25 mg tablet 25 mg PO BID@ 0RF Rx Instructions: Check heartrate prior to taking, if 60 or below only take 12.5mg (1/2 tablet) hydralazine 100 mg tablet 100 mg PO TID@,, 0RF hydrochlorothiazide 12.5 mg tablet 25 mg PO DAILY@09 0RF albuterol sulfate 90 mcg/actuation HFA aerosol inhaler 2 inh inhalation Q8H PRN (Reason: shortness of breath or wheezing) Qty: 8.5 3RF Discharge Orders: Discharge ED (Routine); Ordered 08/12/21 Ordered By: Ila Chaves Referrals: Mercy Priest MD [Primary Care Provider] - Moe Mcintyre MD [Physician] - 1-3 days Discharge Diet: Advance as tolerated Discharge Activity: Resume usual activity Patient Instructions: Urinary Retention in Men (ED), Acute Urinary Retention in Women (ED) Coding Level of Care Code ED Hospital Insurance Representative for Chg Fwd Exam Comprehensive
[2021-08-12 22:01] VITALS: BP 171/82; PULSE 87; RESP 19; O2SAT 98
[2021-08-12 22:03] LABS: Basophils % 0.2 %; Eosinophils # 0.1 10^3/uL (0.0-0.8); Eosinophils % 1.1 %; Hemoglobin 11.6 g/dL (11.7-16.6); Lymphocytes % 15.6 %; Mean Corpuscular HGB Conc 31.4 g/dL (30.0-36.0); Mean Corpuscular Hemoglobin 26.7 pg (28.0-34.0); Mean Corpuscular Volume 85.1 fl (80-94); Mean Platelet Volume 9.8 fL (7.4-10.4); Monocytes # 0.7 10^3/uL (0.2-0.9); Monocytes % 10.8 %; Neutrophils # 4.52 10^3/uL (1.8-7.7); Nucleated Red Blood Cells % 0 %; Platelet Count 176 10^3/cmm (130-400); Red Blood Count 4.35 10^6/uL (4.1-5.3); Red Cell Distribution Width 14.4 % (12.1-15.1); White Blood Count 6.4 10^3/uL (4.0-10.0)
[2021-08-12 22:22] LABS: Alanine Aminotransferase 21 U/L (0-41); Albumin Level 3.9 g/dL (3.5-5.2); Alkaline Phosphatase 109 IU/L (40-130); Anion Gap 18.6 (5-19); Aspartate Amino Transferase 29 U/L (0-40); Blood Urea Nitrogen 35 mg/dL (8-23); Calcium 9.7 mg/dL (8.5-10.5); Carbon Dioxide 20 mmol/L (22-29); Chloride 101 mmol/L (98-107); Globulin 2.5 g/dL (1.3-4.6); Glucose 185 mg/dL (65-115); Osmolality Calculated 291 mOsm/kg (285-295); Potassium 5.6 mmol/L (3.5-5.1); Sodium 134 mmol/L (136-145); Total Protein 6.4 g/dL (6.6-8.7)
[2021-08-12 22:23] LABS: Digoxin 0.3 ng/mL (0.6-1.2)
--- NOTE | 2021-08-12 22:24 | PC.NURSE ---
after placement of early catheter patient with noted quick 1000cc clear, yellow return noted. patients Early clamped to prevent bladder spasms. patient in no obivous distress. family at bedside.
[2021-08-12 22:37] VITALS: BP 180/65; PULSE 82; RESP 17; O2SAT 95
[2021-08-12 22:45] LABS: Add Urine Microscopic? YES; Bilirubin Urine Neg (Negative); Blood Urine 2+ (Negative); Glucose Urine UA 2+ (Normal); Ketones Urine Negative (Negative); Leukocyte Esterase Urine Negative (Negative); Nitrate Urine Negative (Negative); Protein Urine Neg (Negative); Specific Gravity, Urine 1.005 (1.005-1.030); Urine Appearance Clear (CLEAR); Urine Color Yellow (Yellow); Urobilinogen Urine Norm (Negative); pH Urine 7 (5-7)
[2021-08-12 22:47] LABS: Add Urine Culture? Yes; Bacteria Urine 2+ /hpf; RBC Urine 25-40 /hpf (0-2); Squamous Epithelial Cell Urine 0-4 /hpf (0-5); WBC Urine 0-4 /hpf (0-5)
[2021-08-12 23:48] VITALS: BP 184/74; PULSE 76; RESP 17; O2SAT 98
--- NOTE | 2021-08-13 11:12 | DCPLANNER ---
Addendum entered by Maddy Beck 09/14/21 12:05: Patient had a follow up appointment scheduled for 08.27.[address] Mcintyre - patient did attend appointment. Addendum entered by Maddy Beck 08/14/21 07:57: Patient has a follow up appointment scheduled for Friday, August 27, 2021 at 8:30 with SYSTEMS DESIGN ENGINEER, Leah. Clinic will call patient with appointment information. Addendum entered by Maddy Beck 08/13/21 11:22: Patients primary care physician is Dr. Priest, correctional counselor/case manager called the nurse of Dr. Priest to let the physician know that patient was seen in the ER and was being referred to Dr. Mcintyre. Original Note: data deliverables manager had message to schedule a follow up appointment for patient with Dr. Mcintyre. data deliverables manager emailed patients information to Michael Ching and Julie in the office of Dr. Mcintyre. Clinic will call patient with appointment information.
== END 2021-08-12 23:57 | disposition home or self-care (01) ==
PROVIDERS: Emergency Provider Emergency Medicine; PCP Family Medicine
DX: R33.9 Retention of urine, unspecified (principal); Z79.01 Long term (current) use of anticoagulants; Z79.82 Long term (current) use of aspirin; Z79.4 Long term (current) use of insulin; I25.10 Atherosclerotic heart disease of native coronary artery without angina pectoris; E78.5 Hyperlipidemia, unspecified; E11.22 Type 2 diabetes mellitus with diabetic chronic kidney disease; I12.0 Hypertensive chronic kidney disease with stage 5 chronic kidney disease or end stage renal disease; N18.6 End stage renal disease; Z94.0 Kidney transplant status; Z95.1 Presence of aortocoronary bypass graft; Z89.519 Acquired absence of unspecified leg below knee
CPT/HCPCS: 51702; 80053; 80162; 81001; 85025; 85610; 87086; 99283

== ENCOUNTER → 2021-08-14 09:39 | Outpatient (BNVA) | payer MEDICARE, OTHER, SELFPAY | PROVIDERS: PCP Family Medicine; Visit Provider Anesthesiology Pain Medicine | DX: M47.816 Spondylosis without myelopathy or radiculopathy, lumbar region (principal); M54.2 Cervicalgia; M77.12 Lateral epicondylitis, left elbow; Z87.891 Personal history of nicotine dependence; Z79.891 Long term (current) use of opiate analgesic | CPT/HCPCS: 99214 ==

== ENCOUNTER 2021-08-24 10:36 | Outpatient (CLI) | payer MEDICARE, OTHER, SELFPAY | END 2021-08-24 10:37 | disposition home or self-care (01) | LOC: WOUND 10:39 | PROVIDERS: PCP Family Medicine; Visit Provider Surgery | DX: E11.621 Type 2 diabetes mellitus with foot ulcer (principal); L97.412 Non-pressure chronic ulcer of right heel and midfoot with fat layer exposed | CPT/HCPCS: 99213 ==

== ENCOUNTER 2021-08-24 11:47 | Emergency (ER) | payer MEDICARE, OTHER, SELFPAY ==
[2021-08-24 12:03] VITALS: BP 112/35; PULSE 80; RESP 18; TEMP 37; O2SAT 97; BMI 26.5
--- NOTE | 2021-08-24 12:51 | ED_ITS ---
HPI - Recheck/Abnormal Lab/Rx General: Chief Complaint: Recheck/Abnormal Lab/Rx Stated Complaint: Wound care sent, ptinr pooling blood in R foot Time Seen by Provider: 08/24/21 12:48 History of Present Illness: Mr. Kidd is a 76-year-old gentleman with complex past medical history on oral anticoagulation with warfarin for atrial fibrillation (no history of mechanical valve) who presents to the emergency department from wound clinic for supratherapeutic INR. He reports being on warfarin for approximately 3 years and has had intermittently mildly supratherapeutic readings however without known provoking factor INR has been greater than 8 last week and then again this week. He held his warfarin 2 days as directed last week and then resumed normal and has again held for 2 days this week. He has noticed increased bruising and pooling of blood in his right foot which is the one for which she sees wound care. He saw wound care and they noted perhaps progression of wound though no evidence of superimposed infection or other additional concern to be dressed in the emergency department. He otherwise has many chronic conditions and is somewhat frail in health however denies acute changes. No falls or head trauma, no confusion reported or new neurologic deficits. Patient does have a Ledezma catheter and has not noticed blood. Overall the course of symptoms has persisted. No other specific exacerbating relieving factors identified. 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 Aortic root enlargement Arteriovenous fistula of right upper extremity CAD (coronary artery disease) COVID-19 (~09/2020) COVID-19 vaccine administered moderna x 2 doses Diabetes Diabetic ulcer of foot associated with diabetes mellitus due to underlying co ndition, with fat layer exposed Dyslipidemia Elevated troponin 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 Essential hypertension Generalized weakness Long-term use of high-risk medication cellcept, tacrolimus, and chronic prednisone for transplant status Paroxysmal atrial fibrillation Peripheral artery disease Prostatic enlargement Sleep apnea SVT (supraventricular tachycardia) Urinary retention Warfarin anticoagulation Surgical History History of angioplasty of peripheral vessel (~10/2020) History of arthroscopy of both knees History of cystoscopy History of hand surgery (~2018) right thumb History of neck surgery C6 corpectomy, C5-6, C6-7 anterior discectomy, C5-C7 plate and screw fixation, C5-C7 fusion History of partial amputation of toe of right foot (~2010) right 5th History of repair of right rotator cuff History of selective injection of anesthetic agent around lumbar nerve root L3,4,5 left and right 05/2021 History of shoulder surgery History of tonsillectomy (~2012) Hx of amputation below knee (~2018) Hx of appendectomy Hx of CABG (~2005) Hx of kidney transplant (~2011) [facility] Other postprocedural status radiofrequency ablation right L2-5 08/2019 radiofrequency ablation right L3-S1 06/2021 radiofrequency ablation left L3- S1 07/2021 Status post epidural steroid injection L4-5 right 11/2019 L3,4,5 left and right 05/2021 Family History Mother , AT AGE 94 Heart attack Father , AT AGE 45 MVA (motor vehicle accident) Other CAD (coronary artery disease) Cancer Diabetes Hypertension Social History Smoking and tobacco status: former smoker Alcohol intake: current Alcohol intake frequency: holidays/special occasions only Adopted: No Household members: spouse Marital status: Current occupational status: retired and disabled History of recent travel: No Physical Exam Const: COMMON NORMALS: alert GENERAL APPEARANCE: cooperative, well developed and ill appearing (Chronically) HENMT: COMMON NORMALS: normocephalic and atraumatic HEAD & SCALP: normocephalic and atraumatic Eye: COMMON NORMALS: conjunctivae normal CONJUNCTIVA: Yes conjunctivae normal SCLERA: sclerae normal Neck/C-Spine: COMMON NORMALS: supple GENERAL: Yes trachea midline Resp: COMMON NORMALS: normal respiratory effort EFFORT & INSPECTION: Yes able to speak in complete sentences Cardio: COMMON NORMALS: regular rate and regular rhythm RATE: regular rate RHYTHM: regular rhythm GI: COMMON NORMALS: Soft to palpation PALPATION: Yes Soft to palpation and No Tenderness to palpation present (GI) PERCUSSION: normal to percussion Extremity: NARRATIVE EXTREMITY EXAM: Left lower extremity prosthetic Right lower extremity chronic vascular changes in the calf region and edema. On the arch of the foot there is mild amounts of ecchymosis and petechiae. Neuro: COMMON NORMALS: moves all extremities SENSORIUM/ORIENTATION: Yes alert and No Orientation impaired Psych: COMMON NORMALS: mental status grossly normal and Normal thought process present THOUGHT PROCESS: Normal thought process present Course ED course: - Patient was seen and evaluated by me at bedside - Patient placed on cardiac monitors, IV access obtained - Initial evaluation notable for exam as above, no active hemorrhage appreciated. Region of ecchymosis is relatively small - Labs notable for no leukocytosis, hemoglobin decreased from prior however does not require transfusion. Blood count is low. INR 4.36. Metabolic panel without acute electrolyte derangement. - Imaging notable for soft tissue swelling which is similar without evidence of gross osteomyelitis on x-ray imaging - Upon serial reexamination after treatment the patient was similar - Based on patient history, evaluation, labs, and imaging as interpreted the most likely cause of the patient's condition is elevated INR - The results of ED evaluation were discussed with the patient including prescriptions and/or symptomatic cares (if applicable) including appropriate and responsible use, followup plan, and return precautions. The patient verbalized understanding and felt safe for discharge. - Patient discharged in satisfactory condition. Note: Click bubbles or prepopulated nieto in note writing are used for assistance with data collection and billing and are inherently more limited than narrative and other text portions of this note. Please use narrative for additional clinical history and defer to narrative/free test for any case of contradictory information. If information appears in only free text or click bubble it should be considered present or absent as reported. Please contact note underwriter for clarifications of clinical information or contradictory information. MDM is a brief summary, contradictory or erroneous seeming information should be clarified and full note should be reviewed. Vital Signs: Vital signs: Vital Signs Temperature 98.6 F 08/24/21 12:03 Pulse Rate 77 08/24/21 16:58 Respiratory Rate 16 08/24/21 16:58 Blood Pressure 164/52 08/24/21 16:58 Pulse Oximetry 98 08/24/21 16:58 MDM - Recheck/Abnormal Lab/Rx Medical Decision Making 76-year-old gentleman with complex past medical history including chronic known recent supratherapeutic INR presenting due to concern regarding bleeding around chronic wound. No evidence of bleeding actively on clinical exam. INR has improved however plan to instruct patient to hold 2 more days of warfarin and have recheck and discuss with managing provider. Satisfactory for outpatient management with strict return precautions. Medical Records I reviewed the patient's medical records. Lab Data I reviewed the patient's lab results. : 08/24/21 13:40 08/24/21 14:19 Radiology Impressions Foot X-Ray 08/24/21 13:04 Impression: 1. Absence of the right fifth toe. 2. Swelling of the dorsum of the foot unchanged. 3. No evidence of osteomyelitis. Laboratory Results WBC 9.6 10^3/uL (4.0-10.0) 08/24/21 13:40 RBC 3.48 10^6/uL (4.1-5.3) L 08/24/21 13:40 Hgb 9.3 g/dL (11.7-16.6) L 08/24/21 13:40 Hct 31.0 % (42.0-52.0) L 08/24/21 13:40 MCV 89.1 fl (80-94) 08/24/21 13:40 MCH 26.7 pg (28.0-34.0) L 08/24/21 13:40 MCHC 30.0 g/dL (30.0-36.0) 08/24/21 13:40 RDW 15.9 % (12.1-15.1) H 08/24/21 13:40 Plt Count 98 10^3/cmm (130-400) L 08/24/21 13:40 MPV 10.7 fL (7.4-10.4) H 08/24/21 13:40 Neut % (Auto) 87.6 % 08/24/21 13:40 Lymph % (Auto) 4.6 % 08/24/21 13:40 [place] % (Auto) 7.4 % 08/24/21 13:40 Eos % (Auto) 0.0 % 08/24/21 13:40 Baso % (Auto) 0.2 % 08/24/21 13:40 Neut # (Auto) 8.39 10^3/uL (1.8-7.7) H 08/24/21 13:40 Lymph # (Auto) 0.4 10^3/uL (0.8-4.8) L 08/24/21 13:40 [place] # (Auto) 0.7 10^3/uL (0.2-0.9) 08/24/21 13:40 Eos # (Auto) 0.0 10^3/uL (0.0-0.8) 08/24/21 13:40 Baso # (Auto) 0.0 10^3/uL (0.0-0.1) 08/24/21 13:40 Nucleated RBC % (auto) 0 % 08/24/21 13:40 Nucleated RBCs # 0.0 /100WBC 08/24/21 13:40 PT 42.30 SECONDS (12.1-14.9) H 08/24/21 13:40 INR 4.36 (0.8-1.2) H 08/24/21 13:40 APTT 59.1 SECONDS (23.9-36.7) H 08/24/21 13:40 Sodium 138 mmol/L (136-145) 08/24/21 14:19 Potassium 4.9 mmol/L (3.5-5.1) 08/24/21 14:19 Chloride 106 mmol/L (98-107) 08/24/21 14:19 Carbon Dioxide 21 mmol/L (22-29) L 08/24/21 14:19 Anion Gap 15.9 (5-19) 08/24/21 14:19 BUN 29 mg/dL (8-23) H 08/24/21 14:19 Creatinine 1.5 mg/dL (0.7-1.2) H 08/24/21 14:19 GFR Calculation Not Reportable 08/24/21 14:19 Glucose 179 mg/dL (65-115) H 08/24/21 14:19 Calculated Osmolality 296 mOsm/kg (285-295) H 08/24/21 14:19 Calcium 8.8 mg/dL (8.5-10.5) 08/24/21 14:19 Total Bilirubin 1.1 mg/dL (0.15-1.2) 08/24/21 14:19 AST 18 U/L (0-40) 08/24/21 14:19 ALT 9 U/L (0-41) 08/24/21 14:19 Alkaline Phosphatase 100 IU/L (40-130) 08/24/21 14:19 Total Protein 6.1 g/dL (6.6-8.7) L 08/24/21 14:19 Albumin 3.3 g/dL (3.5-5.2) L 08/24/21 14:19 Globulin 2.8 g/dL (1.3-4.6) 08/24/21 14:19 Discharge Plan Discharge Patient Disposition: Home Clinical Impression: Supratherapeutic INR, Anemia, Thrombocytopenia Condition: Stable Prescriptions: No Action atorvastatin [Lipitor] 20 mg tablet 20 mg PO BEDTIME@2100 Qty: 90 1RF tramadol 50 mg tablet 50 mg PO BID PRN (Reason: pain) Qty: 45 0RF mycophenolate mofetil 250 mg capsule 500 mg PO BID@0900,2100 0RF prednisone 5 mg tablet 5 mg PO DAILY@0900 0RF cholecalciferol (vitamin D3) 3,000 unit tablet 3,000 unit PO DAILY@0900 0RF cetirizine [All Day Allergy (cetirizine)] 10 mg tablet 10 mg PO DAILY@09 0RF aspirin [Adult Low Dose Aspirin] 81 mg tablet,delayed release (DR/EC) 81 mg PO DAILY@09 0RF famotidine 20 mg tablet 20 mg PO DAILY@09 0RF furosemide 20 mg tablet 20 mg PO DAILY PRN (Reason: Edema) 0RF warfarin 5 mg tablet See Rx Instructions .ROUTE .COMPLEX Qty: 90 3RF Hold Instructions: Resume on 08/11/21. recheck INR Rx Instructions: SUN 2.5MG - MON 5MG - TUES 7.5MG - WED NONE - THURS NONE - FRI 2.5MG - SAT 5MG amlodipine 5 mg tablet 10 mg PO DAILY@0900 Qty: 180 2RF insulin aspart U-100 [Novolog U-100 Insulin aspart] 100 unit/mL solution See Rx Instructions .ROUTE .COMPLEX Qty: 10 6RF Rx Instructions: basal-midnight to 7 am-.800 units per hour basal-07:00 to 13:00-1.00 units per hour basal-13:00 to 19:00-1.20 units per hour basal-19:00 to 00:00-1.20 units per hour meal bolus-1 unit per 8 carbs sodium bicarbonate 650 mg tablet 1,300 mg PO TID@,, 0RF tamsulosin 0.4 mg capsule 0.4 mg PO BEDTIME@2100 0RF digoxin 125 mcg (0.125 mg) tablet 125 mcg PO DAILY@0900 0RF Hold Instructions: Resume on 08/22/21. lisinopril 40 mg tablet 40 mg PO DAILY@09 0RF tacrolimus 1 mg capsule 1 mg PO BID@, 0RF carvedilol 25 mg tablet 25 mg PO BID@, 0RF Rx Instructions: Check heartrate prior to taking, if 60 or below only take 12.5mg (1/2 tablet) hydralazine 100 mg tablet 100 mg PO TID@,, 0RF hydrochlorothiazide 12.5 mg tablet 25 mg PO DAILY@09 0RF Discharge Orders: Discharge ED (Routine); Ordered 08/24/21 Ordered By: Antonio Gatica Referrals: Mercy Priest MD [Primary Care Provider] - Discharge Diet: Usual diet Discharge Activity: Resume usual activity Patient Instructions: Anemia (ED), Elevated INR (ED), Thrombocytopenia (ED) Activity Restrictions/Additional Instructions: Thank you for visiting the emergency department. You were seen and evaluated for concern over bleeding and elevated INR. Based on your INR I recommend holding your warfarin for 2 more days and then recheck and follow-up with your primary care provider. Please return to the emergency department for worsening bleeding, any falls or trauma, or anything else that you are concerned about and feel needs emergency department evaluation. Coding Level of Care Code ED Micropaleontologist for Antionette Fwmolly Exam Comprehensive
--- NOTE | 2021-08-24 13:04 | XR_ITS ---
WS: [id number] Right foot, 3 views, 08/24/2021 Clinical Data: diabetic wound Comparison: Right foot, 08/01/2021. Findings: There is absence of the right fifth toe. There is flexion deformity of the right first through fourth toes. There are no fractures or dislocations. There is no bone destruction or erosion. There is soft tissue swelling over the dorsum of the foot unchanged. There are extensive vascular calcifications and smal l fascial calcifications on the plantar surface of the foot. XR/XR foot RT min 3V* [id number] Impression: 1. Absence of the right fifth toe. 2. Swelling of the dorsum of the foot unchanged. 3. No evidence of osteomyelitis.
[2021-08-24 13:46] LABS: Basophils % 0.2 %; Hemoglobin 9.3 g/dL (11.7-16.6); Lymphocytes # 0.4 10^3/uL (0.8-4.8); Lymphocytes % 4.6 %; Mean Corpuscular Hemoglobin 26.7 pg (28.0-34.0); Mean Corpuscular Volume 89.1 fl (80-94); Mean Platelet Volume 10.7 fL (7.4-10.4); Monocytes # 0.7 10^3/uL (0.2-0.9); Monocytes % 7.4 %; Neutrophils # 8.39 10^3/uL (1.8-7.7); Neutrophils % 87.6 %; Nucleated Red Blood Cells % 0 %; Platelet Count 98 10^3/cmm (130-400); Red Blood Count 3.48 10^6/uL (4.1-5.3); Red Cell Distribution Width 15.9 % (12.1-15.1); White Blood Count 9.6 10^3/uL (4.0-10.0)
[2021-08-24 14:00] LABS: INR 4.36 (0.8-1.2)
[2021-08-24 14:01] LABS: Partial Thromboplastin Time 59.1 SECONDS (23.9-36.7)
[2021-08-24 14:44] LABS: Alanine Aminotransferase 9 U/L (0-41); Albumin Level 3.3 g/dL (3.5-5.2); Alkaline Phosphatase 100 IU/L (40-130); Anion Gap 15.9 (5-19); Blood Urea Nitrogen 29 mg/dL (8-23); Calcium 8.8 mg/dL (8.5-10.5); Carbon Dioxide 21 mmol/L (22-29); Chloride 106 mmol/L (98-107); Globulin 2.8 g/dL (1.3-4.6); Glucose 179 mg/dL (65-115); Osmolality Calculated 296 mOsm/kg (285-295); Potassium 4.9 mmol/L (3.5-5.1); Sodium 138 mmol/L (136-145); Total Bilirubin 1.1 mg/dL (0.15-1.2); Total Protein 6.1 g/dL (6.6-8.7)
[2021-08-24 14:52] LABS: Aspartate Amino Transferase 18 U/L (0-40)
[2021-08-24 16:58] VITALS: BP 164/52; PULSE 77; RESP 16; O2SAT 98
== END 2021-08-24 15:50 | disposition home or self-care (01) ==
PROVIDERS: Emergency Provider Emergency Medicine; PCP Family Medicine
DX: R79.1 Abnormal coagulation profile (principal); D64.9 Anemia, unspecified; D69.6 Thrombocytopenia, unspecified; Z79.01 Long term (current) use of anticoagulants; Z79.82 Long term (current) use of aspirin; Z79.4 Long term (current) use of insulin; Z87.891 Personal history of nicotine dependence; I25.10 Atherosclerotic heart disease of native coronary artery without angina pectoris; E11.22 Type 2 diabetes mellitus with diabetic chronic kidney disease; I12.0 Hypertensive chronic kidney disease with stage 5 chronic kidney disease or end stage renal disease; N18.6 End stage renal disease; E78.5 Hyperlipidemia, unspecified; Z95.1 Presence of aortocoronary bypass graft; Z89.519 Acquired absence of unspecified leg below knee; Z94.0 Kidney transplant status; E11.621 Type 2 diabetes mellitus with foot ulcer; L97.412 Non-pressure chronic ulcer of right heel and midfoot with fat layer exposed
CPT/HCPCS: 73630; 80053; 85025; 85610; 85730; 99213; 99283

== ENCOUNTER 2021-08-31 12:55 | Outpatient (CLI) | payer MEDICARE, OTHER, SELFPAY | END 2021-08-31 12:56 | disposition home or self-care (01) | LOC: WOUND 12:56 | PROVIDERS: PCP Family Medicine; Visit Provider Surgery | DX: E11.621 Type 2 diabetes mellitus with foot ulcer (principal); I96 Gangrene, not elsewhere classified; L97.412 Non-pressure chronic ulcer of right heel and midfoot with fat layer exposed; Z87.891 Personal history of nicotine dependence | CPT/HCPCS: 11043; 87070; 87077; 87176; 87186; 87205 ==

== ENCOUNTER 2021-09-07 12:51 | Outpatient (CLI) | payer MEDICARE, OTHER, SELFPAY | END 2021-09-07 12:52 | disposition home or self-care (01) | LOC: WOUND 12:52 | PROVIDERS: PCP Family Medicine; Visit Provider Surgery | DX: E11.621 Type 2 diabetes mellitus with foot ulcer (principal); Z87.891 Personal history of nicotine dependence; L97.512 Non-pressure chronic ulcer of other part of right foot with fat layer exposed; I96 Gangrene, not elsewhere classified | CPT/HCPCS: 11043; A6219 ==

== ENCOUNTER → 2021-09-14 09:44 | Outpatient (BNVA) | payer MEDICARE, OTHER, SELFPAY | PROVIDERS: PCP Nurse Practitioner; Visit Provider Nurse Practitioner Family | DX: E21.0 Primary hyperparathyroidism (principal) | CPT/HCPCS: 11042; 80048; 80061; 83036 ==

== ENCOUNTER 2021-09-19 12:14 | Inpatient (IN) | payer MEDICARE, OTHER, SELFPAY ==
[2021-09-19] VITALS (7 sets, daily range): BP systolic 110–153; BP diastolic 36–71; PULSE 73–88; RESP 18–20; TEMP 36.8; O2SAT 92–97; BMI 28.4
--- NOTE | 2021-09-19 12:54 | ED_ITS ---
HPI - SOB/Dyspnea General: Chief Complaint: Shortness of Breath/Dyspnea Stated Complaint: No appitie, SOB Time Seen by Provider: 09/19/21 12:54 History of Present Illness: HPI Narrative: Mr. Kidd is a 76-year-old gentleman with complex past medical history i ncluding hypertension, hyperlipidemia, heart failure, atrial fibrillation on oral anticoagulation, diabetes, chronic wounds, and transplanted kidney who presents to the emergency department due to generalized symptoms. Onset of symptoms was approximately 3 weeks ago when he had generalized malaise and increasing shortness of breath. He endorses 1 week of worsening symptoms that are now moderate to severe. He has had poor p.o. intake, diarrhea whenever he does have p.o. intake, shortness of breath, and generalized weakness. He denies associated vomiting or abdominal pain. His chronic lower extremity wounds are similar to prior and have not worsened. He denies fevers chills. No other sp ecific changes in health, exacerbating, or alleviating factors identified. Patient did receive flu shot and Covid vaccine. Onset (ago): week(s) Timing: progressively worsening Severity: moderate Exacerbating factors: exertion and other Relieving factors: nothing Review of Systems General: Reports: 10 or more systems reviewed and unremarkable except in HPI and below PFSH ED PFSH: Medical History (Updated 09/20/21 @ 13:21 by Kristin Bhat MD) Aortic root enlargement Arteriovenous fistula of right upper extremity CAD (coronary artery disease) Chronic kidney disease COVID-19 Had twice 09/2020 and 07/2021 COVID-19 vaccine administered moderna x 2 doses Diabetes Type 2, with insulin pump and continuous glucose monitoring, history of DKA when insulin pump not utilized Diabetic ulcer of foot associated with diabetes mellitus due to underlying condition, with fat layer exposed Dyslipidemia Elevated troponin 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 Essential hypertension Insulin pump in place Long-term use of high-risk medication cellcept, tacrolimus, and chronic prednisone for transplant status Paroxysmal atrial fibrillation Peripheral artery disease Prostatic enlargement Sleep apnea SVT (supraventricular tachycardia) Urinary retention Warfarin anticoagulation Surgical History (Updated 09/19/21 @ 16:10 by Shannon Ashley MD) History of angioplasty of peripheral vessel (~10/2020) History of arthroscopy of both knees History of cystoscopy History of hand surgery (~2018) right thumb History of neck surgery C6 corpectomy, C5-6, C6-7 anterior discectomy, C5-C7 plate and screw fix ation, C5-C7 fusion History of partial amputation of toe of right foot (~2010) right 5th History of repair of right rotator cuff History of selective injection of anesthetic agent around lumbar nerve root L3,4,5 left and right 05/2021 History of shoulder surgery History of tonsillectomy (~2012) Hx of amputation below knee (~2018) Hx of appendectomy Hx of CABG (~2005) Hx of kidney transplant (~2011) [facility] Other postprocedural status radiofrequency ablation right L2-5 08/2019 radiofrequency ablation right L3-S1 06/2021 radiofrequency ablation left L3- S1 07/2021 Status post epidural steroid injection L4-5 right 11/2019 L3,4,5 left and right 05/2021 Family History Mother , AT AGE 94 Heart attack Father , AT AGE 45 MVA (motor vehicle accident) Other CAD (coronary artery disease) Cancer Diabetes Hypertension Social History (Updated 09/19/21 @ 20:27 by Shannon Ashley MD) Smoking and tobacco status: former smoker Alcohol intake: current Alcohol intake frequency: holidays/special occasions only Adopted: No Household members: spouse Marital status: Current occupational status: retired and disabled Physical Exam Const: COMMON NORMALS: alert GENERAL APPEARANCE: cooperative, well developed and ill appearing (Mildly, acute on chronic) HENMT: COMMON NORMALS: normocephalic and atraumatic HEAD & SCALP: normocephalic and atraumatic THROAT: posterior oropharynx normal OTHER: Poor dentition without evidence of abscess Eye: COMMON NORMALS: conjunctivae normal CONJUNCTIVA: Yes conjunctivae normal SCLERA: sclerae normal Neck/C-Spine: COMMON NORMALS: supple GENERAL: Yes trachea midline Resp: COMMON NORMALS: normal respiratory effort EFFORT & INSPECTION: Yes able to speak in complete sentences AUSCULTATION: diminished lung sounds Cardio: COMMON NORMALS: regular rate and regular rhythm RATE: regular rate RHYTHM: regular rhythm GI: COMMON NORMALS: Soft to palpation PALPATION: Yes Soft to palpation and No Tenderness to palpation present (GI) PERCUSSION: normal to percussion Extremity: NARRATIVE EXTREMITY EXAM: Left prior amputation, right in soft wound protective boot GENERAL: Yes normal exam except as noted and No edema Neuro: COMMON NORMALS: moves all extremities SENSORIUM/ORIENTATION: Yes alert and No Orientation impaired Psych: COMMON NORMALS: mental status grossly normal and Normal thought process present THOUGHT PROCESS: Normal thought process present Course ED course: - Patient was seen and evaluated by me at bedside - Patient placed on cardiac monitors, IV access obtained - Initial evaluation notable for exam as above, nonfocal, nontoxic - Gentle IV fluids given history of heart failure - Labs and chest x-ray personally interpreted by me. EKGs from 1330 and 1538 interpreted and notable for atrial fibrillation with controlled ventricular response, right bundle branch block. No stemi. - Labs notable for no leukocytosis, hemoglobin somewhat worse than normal. Metabolic panel with MIREILLE, hyperkalemia. Initial troponin elevated likely secondary to CKD, repeat improved. Urinalysis without evidence of infection. Digoxin level 2.1 (supratherapeutic) - Hyperkalemia treatment ordered - Imaging notable for chest x-ray with residual mild interstitial infiltrate in the right lower lobe, cardiac enlargement, blunted right costophrenic angle. Renal transplant ultrasound pending - Upon serial reexamination after treatment the patient was similar - Based on patient history, evaluation, and testing as interpreted the most likely cause of the patient's condition is MIREILLE with supratherapeutic digoxin level - The results of ED evaluation were discussed with the patient including plan for admission due to requirement for level of care not available if discharged to prevent significant worsening/deterioration. - Admitting service was contacted and Dr Ashley with the hospitalist service agreed to admit the patient however this is pending nephrology consult for possibility of need for outside transfer. Per investigation of chart apparently the patient had a 2-week course of Bactrim that preceded the symptoms. This was given for wounds. - Patient was admitted without further deterioration or significant events. Note: Click bubbles or prepopulated nieto in note writing are used for assistance with data collection and billing and are inherently more limited than narrative and other text portions of this note. Please use narrative for additional clinical history and defer to narrative/free test for any case of contradictory information. If information appears in only free text or click bubble it should be considered present or absent as reported. Please contact note technical writer and editor for clarifications of clinical information or contradictory information. MDM is a brief summary, contradictory or erroneous seeming information should be clarified and full note should be reviewed. Vital Signs: Vital signs: Vital Signs Temperature 97.7 F 09/25/21 16:51 Pulse Rate 74 09/25/21 16:51 Respiratory Rate 18 09/25/21 16:51 Blood Pressure 167/77 09/25/21 16:51 Pulse Oximetry 96 09/25/21 16:51 MDM - SOB/Dyspnea Medical Decision Making 76-year-old gentleman with complex past medical history presenting with generalized symptoms. Patient found to have MIREILLE and supratherapeutic digoxin level which likely explains symptoms. Admitted for further management. Medical Records I reviewed the patient's medical records. Lab Data I reviewed the patient's lab results. : 09/25/21 04:41 09/25/21 04:41 Labs/Radiology: Radiology Impressions Chest X-Ray 09/19/21 13:11 IMPRESSION: 1. Residual mild interstitial infiltrate in the right lower lung zone when compared to prior study. 2. Cardiac enlargement. 3. Blunted right costophrenic angle which may represent small pleural effusion or pleural thickening. Renal Ultrasound 09/19/21 15:03 IMPRESSION: 1. Mild hydronephrosis of the transplant kidney with 186 cc postvoid residual of the bladder. 2. No significant resistive waveforms or elevated peak systolic velocities of the transplant renal artery and segmental/arcuate branches. Transplant renal vein is patent. Laboratory Results WBC 5.3 10^3/uL (4.0-10.0) 09/19/21 13:28 RBC 3.26 10^6/uL (4.1-5.3) L 09/19/21 13:28 Hgb 8.5 g/dL (11.7-16.6) L 09/19/21 13:28 Hct 28.2 % (42.0-52.0) L 09/19/21 13:28 MCV 86.5 fl (80-94) 09/19/21 13:28 MCH 26.1 pg (28.0-34.0) L 09/19/21 13:28 MCHC 30.1 g/dL (30.0-36.0) 09/19/21 13:28 RDW 16.0 % (12.1-15.1) H 09/19/21 13:28 Plt Count 191 10^3/cmm (130-400) 09/19/21 13:28 MPV 9.8 fL (7.4-10.4) 09/19/21 13:28 Neut % (Auto) 81.5 % 09/19/21 13:28 Lymph % (Auto) 9.2 % 09/19/21 13:28 [place] % (Auto) 8.1 % 09/19/21 13:28 Eos % (Auto) 0.2 % 09/19/21 13:28 Baso % (Auto) 0.4 % 09/19/21 13:28 Neut # (Auto) 4.33 10^3/uL (1.8-7.7) 09/19/21 13:28 Lymph # (Auto) 0.5 10^3/uL (0.8-4.8) L 09/19/21 13:28 [place] # (Auto) 0.4 10^3/uL (0.2-0.9) 09/19/21 13:28 Eos # (Auto) 0.0 10^3/uL (0.0-0.8) 09/19/21 13:28 Baso # (Auto) 0.0 10^3/uL (0.0-0.1) 09/19/21 13:28 Nucleated RBC % (auto) 0 % 09/19/21 13:28 Nucleated RBCs # 0.0 /100WBC 09/19/21 13:28 PT 58.70 SECONDS (12.1-14.9) H 09/19/21 13:28 INR 6.66 (0.8-1.2) H* 09/19/21 13:28 Sodium 133 mmol/L (136-145) L 09/19/21 13:28 Sodium Cancelled 09/19/21 13:28 Potassium 6.2 mmol/L (3.5-5.1) H 09/19/21 13:28 Potassium Cancelled 09/19/21 13:28 Chloride 106 mmol/L (98-107) 09/19/21 13:28 Chloride Cancelled 09/19/21 13:28 Carbon Dioxide 19 mmol/L (22-29) L 09/19/21 13:28 Carbon Dioxide Cancelled 09/19/21 13:28 Anion Gap 14.2 (5-19) 09/19/21 13:28 Anion Gap Cancelled 09/19/21 13:28 BUN 34 mg/dL (8-23) H 09/19/21 13:28 BUN Cancelled 09/19/21 13:28 Creatinine 3.0 mg/dL (0.7-1.2) H 09/19/21 13:28 Creatinine Cancelled 09/19/21 13:28 GFR Calculation Cancelled 09/19/21 13:28 GFR Calculation Not Reportable 09/19/21 13:28 Glucose 189 mg/dL (65-115) H 09/19/21 13:28 Glucose Cancelled 09/19/21 13:28 Calculated Osmolality 289 mOsm/kg (285-295) 09/19/21 13:28 Calculated Osmolality Cancelled 09/19/21 13:28 Uric Acid 8.4 mg/dL (3.4-7.0) H 09/19/21 13:28 Calcium 9.6 mg/dL (8.5-10.5) 09/19/21 13:28 Calcium Cancelled 09/19/21 13:28 Iron 18 ug/dL (59-158) L 09/19/21 13:28 TIBC 172 mcg/dl 09/19/21 13:28 % Saturation 10.4 % (20-50) L 09/19/21 13:28 Unsat Iron Binding 154 ug/dL (112-347) 09/19/21 13:28 Total Bilirubin 0.6 mg/dL (0.15-1.2) 09/19/21 13:28 AST 18 U/L (0-40) 09/19/21 13:28 ALT 9 U/L (0-41) 09/19/21 13:28 Alkaline Phosphatase 113 IU/L (40-130) 09/19/21 13:28 Troponin T Baseline 101 ng/L (0-15) H* 09/19/21 13:28 C-Reactive Protein 45.1 mg/L (0.0-4.9) H 09/19/21 13:28 Total Protein 6.3 g/dL (6.6-8.7) L 09/19/21 13:28 Albumin 3.5 g/dL (3.5-5.2) 09/19/21 13:28 Globulin 2.8 g/dL (1.3-4.6) 09/19/21 13:28 Procalcitonin 0.43 ng/mL (0-0.5) 09/19/21 13:28 Urine Color Yellow (Yellow) 09/19/21 13:55 Urine Appearance Clear (CLEAR) 09/19/21 13:55 Urine pH 9 (5-7) H 09/19/21 13:55 Ur Specific [place] 1.015 (1.005-1.030) 09/19/21 13:55 Urine Protein Neg (Negative) 09/19/21 13:55 Urine Glucose (UA) Trace (Normal) H 09/19/21 13:55 Urine Ketones Negative (Negative) 09/19/21 13:55 Urine Blood Neg (Negative) 09/19/21 13:55 Urine Nitrate Negative (Negative) 09/19/21 13:55 Urine Bilirubin Neg (Negative) 09/19/21 13:55 Prot Sulfosalicylic Acd Negative (Negative) 09/19/21 13:55 Urine Urobilinogen 4 mg/dL (Negative) H 09/19/21 13:55 Ur Leukocyte Esterase Negative (Negative) 09/19/21 13:55 Urine RBC None /hpf (0-2) 09/19/21 13:55 Urine WBC 5-10 /hpf (0-5) H 09/19/21 13:55 Ur Squamous Epith Cells 5-10 /hpf (0-5) H 09/19/21 13:55 Amorphous Sediment Not Reportable 09/19/21 13:55 Urine Bacteria Trace /hpf (NONE) 09/19/21 13:55 Ur Random Sodium 169 mmol/L 09/19/21 13:55 Ur Random Potassium 16 mmol/L 09/19/21 13:55 Ur Random Chloride 93 mmol/L 09/19/21 13:55 Digoxin 2.1 ng/mL (0.6-1.2) H 09/19/21 13:28 Coronavirus 229E (PCR) Not detected (NOT DETECT) 09/19/21 13:36 SARS-CoV-2 (PCR) Not detected (NOT DETECT) 09/19/21 13:36 Discharge Plan Discharge Patient Disposition: Admitted As Inpatient Admit Provider: Shannon Ashley Clinical Impression: MIREILLE (acute kidney injury), Hyperkalemia, Dehydration Digoxin toxicity Qualifiers: Encounter type: initial encounter Injury intent: accidental or unintentional Qualified Code(s): T46.0X1A - Poisoning by cardiac-stimulant glycosides and drugs of similar action, accidental (unintentional), initial encounter Anemia Qualifiers: Anemia type: due to chronic kidney disease Chronic kidney disease stage: on chronic dialysis Qualified Code(s): N18.6 - End stage renal disease Condition: Stable Discharge Activity: Resume usual activity Coding Level of Care Code ED Music Engraver for Antionette Fwd Exam Comprehensive
--- NOTE | 2021-09-19 13:11 | XR_ITS ---
WS: [id number] Exam: XR chest 1V portable [id number] Date/Time of Exam: 09/19/2021 1:11 PM Reason For Exam: sob Comparison 08/03/2021. Mild interstitial infiltrate seen in the right lower lung zone. Blunted right costophrenic angle may represent small pleural effusion or pleural thickening. The heart is enlarged but unchanged in size. The mediastinum is normal in contour. Signs of previous CABG surgery. Fusion hardware noted in the lo wer C-spine. XR/XR chest 1V portable [id number] IMPRESSION: 1. Residual mild interstitial infiltrate in the right lower lung zone when comp ared to prior study. 2. Cardiac enlargement. 3. Blunted right costophrenic angle which may represent small pleural effusion or pleural thickening.
--- NOTE | 2021-09-19 13:12 | ECG_ITS ---
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 Measurements Intervals [place] Rate: 72 P: [place]: QRS: 27 QRSD: 171 T: 0 QT: 331 QTc: 363 Interpretive Statements ATRIAL FIBRILLATION RIGHT BUNDLE BRANCH BLOCK [120+ ms QRS DURATION, UPRIGHT V1, 40+ ms S IN I/aVL/V4/V5/V6] Compared to ECG 08/03/2021 08:12:21 ST (T wave) deviation no longer present Electronically Signed On 09-19-2021 17:08:04 CDT by Malik Collins M.D. [id number]
[2021-09-19 13:41] LABS: Basophils % 0.4 %; Eosinophils % 0.2 %; Hematocrit 28.2 % (42.0-52.0); Hemoglobin 8.5 g/dL (11.7-16.6); Lymphocytes # 0.5 10^3/uL (0.8-4.8); Lymphocytes % 9.2 %; Mean Corpuscular HGB Conc 30.1 g/dL (30.0-36.0); Mean Corpuscular Hemoglobin 26.1 pg (28.0-34.0); Mean Corpuscular Volume 86.5 fl (80-94); Mean Platelet Volume 9.8 fL (7.4-10.4); Monocytes # 0.4 10^3/uL (0.2-0.9); Monocytes % 8.1 %; Neutrophils # 4.33 10^3/uL (1.8-7.7); Neutrophils % 81.5 %; Nucleated Red Blood Cells % 0 %; Platelet Count 191 10^3/cmm (130-400); Red Blood Count 3.26 10^6/uL (4.1-5.3); White Blood Count 5.3 10^3/uL (4.0-10.0)
[2021-09-19] MEDS: sodium chloride 0.9% 1,000 ML 500 ML IV (13:54)
[2021-09-19 14:06] LABS: Troponin(5th) Baseline 101 ng/L (0-15)
[2021-09-19 14:06] LABS: Bilirubin Urine Neg (Negative); Blood Urine Neg (Negative); Glucose Urine UA Trace (Normal); Ketones Urine Negative (Negative); Nitrate Urine Negative (Negative); Protein Urine Neg (Negative); Specific Gravity, Urine 1.015 (1.005-1.030); Urine Appearance Clear (CLEAR); Urine Color Yellow (Yellow); pH Urine 9 (5-7)
[2021-09-19 14:07] LABS: Leukocyte Esterase Urine Negative (Negative); Sulfosalicylic Acid Urine Negative (Negative); Urobilinogen Urine 4 mg/dL (Negative)
[2021-09-19 14:08] LABS: Alanine Aminotransferase 9 U/L (0-41); Albumin Level 3.5 g/dL (3.5-5.2); Alkaline Phosphatase 113 IU/L (40-130); Anion Gap 14.2 (5-19); Aspartate Amino Transferase 18 U/L (0-40); Blood Urea Nitrogen 34 mg/dL (8-23); C Reactive Protein 45.1 mg/L (0.0-4.9); Calcium 9.6 mg/dL (8.5-10.5); Carbon Dioxide 19 mmol/L (22-29); Chloride 106 mmol/L (98-107); Globulin 2.8 g/dL (1.3-4.6); Glucose 189 mg/dL (65-115); Osmolality Calculated 289 mOsm/kg (285-295); Potassium 6.2 mmol/L (3.5-5.1); Sodium 133 mmol/L (136-145); Total Bilirubin 0.6 mg/dL (0.15-1.2); Total Protein 6.3 g/dL (6.6-8.7)
[2021-09-19 14:09] LABS: Digoxin 2.1 ng/mL (0.6-1.2)
[2021-09-19 14:14] LABS: Procalcitonin 0.43 ng/mL (0-0.5)
[2021-09-19] MEDS: calcium gluconate 0.9% NaCL 1 GM/50 ML PREMIX IV (14:57)
[2021-09-19] MEDS: insulin regular-human 100 units/1 mL 10 UNIT IVP (14:59)
--- NOTE | 2021-09-19 15:03 | USR_ITS ---
PROCEDURE INFORMATION: Exam: US Abdomen; Limited Exam date and time: 09/19/2021 3:46 PM Age: 76 years old Clinical indication: Other: Unable to eat or drink due to odd taste in his mouth; Prior surgery; Surgery date: 6+ months; Patient HX: Evaluate xplnt kidney. Elevated creat = 3.5; Elevated potassium >6; HX renal xplnt 2010; Iddm with insulin pump. Xplnt kidney in the left pelvis = 8.86 x 5.3 x 4.6cm , cortex = 2.33cm; There is mild hydronephrosis in the superior calyces of the xplnt kidney. Doppler of the proximal anastomosis with the left eia = 145 cm/sec and triphasic; Proximal anastomosis = 94cm /sec and biphasic, resistive waveform. The segmental arteries are also biphasic with a resistive waveform. [place] kidneys are grossly abnormal with multiple nephrolithes, very thin cortex measurements; [place] rkid = 9.11 x 4.14 x 4.9cm cortex = 0.45cm; [place] lkid = 7.97 x 4.69 x 5.37cm; Cortex = 0.79cm; The prostate measures 4.19 x 2.44 x 4.00cm (21.4 cm3); The urinary bladder was initially volume estimated at 174 ml; No ureteral jet was seen at the trigone. I searched for a possible left sided attachment of the ureter and finally located a small jet on the left side of the urinary bladder. Post void, after urinating 80ml, was again volume estimated at 186ml. ; Additional info: Renal transplant eval. Evaluate xplnt kidney. Elevated creat = 3.5; Elevated potassium >6; HX renal xplnt 2010; Iddm with insulin pump. Xplnt kidney in the left pelvis = 8.86 x 5.3 x 4.6cm , cortex = 2.33cm; There is mild hydronephrosis in the superior calyces of the xplnt kidney. Doppler of the proximal anastomosis with the left eia = 145 cm/sec and triphasic; Proximal anastomosis = 94cm /sec and biphasic, resistive waveform. The segmental arteries are also biphasic with a resistive waveform. [place] kidneys are grossly abnormal with multiple nephrolithes, very thin cortex measurements; [place] rkid = 9.11 x 4.14 x 4.9cm cortex = 0.45cm; [place] lkid = 7.97 x 4.69 x 5.37cm; Cortex = 0.79cm; The prostate measures 4.19 x 2.44 x 4.00cm (21.4 cm3); The urinary bladder was initially volume estimated at 174 ml; No ureteral jet was seen at the trigone. I searched for a possible left sided attachment of the ureter and finally located a small jet on the left side of the urinary bladder. Post void, after urinating 80ml, was again volume estimated at 186ml. TECHNIQUE: Imaging protocol: US abdomen. Real time ultrasound with image documentation. Limited exam focused on the region of clinical interest. COMPARISON: CT abdomen pelvis w con* [id number] 03/19/2021 5:41 PM FINDINGS: Left iliac fossa transplant kidney measures 8.9 cm in length. Mild hydronephrosis. Patent transplant renal vein. Transplant renal artery peak systolic velocity ranges between 81-145 cm/s. No tardus parvus waveforms. Segmental/arcuate arteries do not demonstrate significant resistive waveforms or tardus parvus waveforms. 186 cc postvoid residual. Prostate measures 4.2 x 4.0 x 2.4 cm. Atrophic appearance of the [place] kidneys. US/CV renal transplant [id number] IMPRESSION: 1. Mild hydronephrosis of the transplant kidney with 186 cc postvoid residual of the bladder. 2. No significant resistive waveforms or elevated peak systolic velocities of the transplant renal artery and segmental/arcuate branches. Transplant renal vein is patent.
--- NOTE | 2021-09-19 15:12 | ECG_ITS ---
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 Measurements Intervals [place] Rate: 73 P: [place]: QRS: 44 QRSD: 153 T: 0 QT: 342 QTc: 379 Interpretive Statements ATRIAL FIBRILLATION RIGHT BUNDLE BRANCH BLOCK [120+ ms QRS DURATION, UPRIGHT V1, 40+ ms S IN I/aVL/V4/V5/V6] Compared to ECG 09/19/2021 13:30:56 No significant changes Electronically Signed On 09-19-2021 17:18:50 CDT by Malik Collins M.D. [id number]
--- NOTE | 2021-09-19 15:34 | PC.NURSE ---
FSBS 191
--- NOTE | 2021-09-19 15:42 | PM.HP ---
Providers/Chief Complaint Admitting Physician: Shannon Ashley MD Primary Care Provider: Harriet Rae -SEASONAL DRIVER Chief Complaint: No appitie, SOB History of Present Illness Jaya Kidd Sr is a 76 year old male with multiple medical problems who presented to the emergency room with chief complaint of not feeling well. Symptoms have been going on for a week or 2. He has become gradually but progressively weaker. He has had increasing difficulty maintaining adequate oral intake. He reports having diarrhea every time he eats shortly after oral intake. He has had nausea but no vomiting. Was having his usual bowel pattern of alternating formed and soft stools about a week and a half ago. Denies chest pain but has had increasing difficulty breathing. Dyspnea is not necessarily exertional or strictly supine in nature, can occur at rest in an upright position He is a known diabetic and his blood sugars have been okay. He is chronically on an insulin pump and has continuous glucose monitoring. An isatu on his phone notifies both him and separately his if his blood sugars are out of range. He denies any fevers. He has not had upper respiratory symptoms such as runny nose or sore throat. Denies headaches. Has not really had a cough. Denies any dysuria presently but did have significant urinary retention (1 L) at the beginning of this month which necessitated placement of Early catheter. He was seen at Dr. Mcintyre's office afterwards and instructed on intermittent self-catheterization until his postvoid residual remained low which happened a few days ago by report. He is chronically immunosuppressed for renal transplant status, taking tacrolimus, mycophenolate and prednisone. He follows with nephrology in [place]. He has been followed at wound care clinic here for nonhealing ulcer on his right foot. He was prescribed Bactrim, based on wound culture sensitivities, on 09/05 and completed the course this past Friday. The frequent diarrhea started about several days after antibiotics were initiated. He has not had any falls or dizziness but his weakness has continued to worsen. With his known past medical history as outlined below, and his became concerned and came in for evaluation. In the ER, vital signs were unrevealing however work-up showed evidence of acute kidney injury with associated hyperkalemia, digoxin toxicity, elevated INR and other abnormalities as described. With these findings he is being admitted for further evaluation and treatment. Of note he had laboratory studies done on September 14 that were to be sent to his doctor in [place]. At that time BUN and creatinine were 42/3.3. Todays value is 34/3.0. Baseline creatinine of late ranges from 1.4-1.7. Review of Systems Const: Reports: change in appetite, fatigue and malaise; Denies: fever(s), chills or change in weight Eyes: Denies: change in vision ENMT: Denies: throat pain or nasal congestion Card: Denies: chest pain, palpitations or edema Resp: Reports: dyspnea and non-productive cough; Denies: productive cough or pain on inspiration GI: Reports: nausea and diarrhea; Denies: abdominal pain, vomiting, constipation, hematochezia or melena : Reports: urinary hesitancy and difficulty starting urination; Denies: flank pain, dysuria, urinary frequency, urinary urgency or hematuria Musc: Reports: back pain (chronic), muscle weakness and other (no issues with prosthesis) Skin/Breast: Reports: lesions (right foot); Denies: rash or pruritus Neuro: Denies: headache(s), frequent falls, dizziness or behavioral changes Endo: Denies: polydipsia Quoc/Lymph: Reports: easy bruising and easy bleeding Medications/Allergies Home Medications Medication Instructions Recorded Confirmed Last Taken Type cetirizine 10 mg tablet (All Day 10 mg PO DAILY@09/02/19 09/19/21 09/19/21 History Allergy (cetirizine)) cholecalciferol (vitamin D3) 75 3,000 unit PO DAILY@0909/02/19 09/19/21 09/19/21 History mcg (3,000 unit) tablet mycophenolate mofetil 250 mg 500 mg PO BID@0900,209909/02/19 09/19/21 09/19/21 History capsule prednisone 5 mg tablet 5 mg PO DAILY@89909/02/19 09/19/21 09/19/21 History digoxin 125 mcg (0.125 mg) tablet 125 mcg PO DAILY@00 11/03/20 09/19/21 09/19/21 History sodium bicarbonate 650 mg tablet 1,300 mg PO TID@11/03/20 09/19/21 09/19/21 History tamsulosin 0.4 mg capsule 0.4 mg PO BEDTIME@2100 11/03/20 09/19/21 09/18/21 History warfarin 5 mg tablet See Rx Instructions .ROUTE 11/29/20 09/19/21 09/18/21 Rx .COMPLEX #90 tab insulin aspart U-100 100 unit/mL See Rx Instructions .ROUTE 05/23/21 09/19/21 09/19/21 Rx subcutaneous solution (Novolog .COMPLEX #10 ml U-100 Insulin aspart) aspirin 81 mg tablet,delayed 81 mg PO DAILY@05/25/21 09/19/21 09/19/21 History release (Adult Low Dose Aspirin) famotidine 20 mg tablet 20 mg PO DAILY@05/25/21 09/19/21 09/19/21 History furosemide 20 mg tablet 20 mg PO DAILY PRN 05/25/21 09/19/21 08/24/21 09:00 History atorvastatin 20 mg tablet (Lipitor) 20 mg PO BEDTIME@2100 #90 tab 07/16/21 09/19/21 09/18/21 Rx carvedilol 25 mg tablet 25 mg PO BID@08/02/21 09/19/21 09/19/21 History hydralazine 100 mg tablet 100 mg PO TID@08/02/21 09/19/21 09/19/21 History hydrochlorothiazide 12.5 mg tablet 25 mg PO DAILY@08/02/21 09/19/21 09/19/21 History lisinopril 40 mg tablet 40 mg PO DAILY@08/02/21 09/19/21 09/19/21 History tacrolimus 1 mg capsule, 1 mg PO BID@08/02/21 09/19/21 09/19/21 History immediate-release sodium hypochlorite 0.125 % 1 applic TOPICAL DAILY #473 ml 09/07/21 09/19/21 09/19/21 Rx solution (Dakin's Solution) amlodipine 5 mg tablet 10 mg PO DAILY@0900 #180 tab 09/13/21 09/19/21 09/19/21 Rx Allergies Allergy/AdvReac Type Severity Reaction Status Date / Time sulfamethoxazole AdvReac Intermediate acute Verified 09/19/21 21:02 [From kidney Sulfamethoxazole-Trimethoprim] injury and high INR trimethoprim AdvReac Intermediate acute Verified 09/19/21 21:02 [From kidney Sulfamethoxazole-Trimethoprim] injury and high INR PFSH Acute PFSH: Medical History (Updated 09/19/21 @ 21:26 by Shannon Ashley MD) Aortic root enlargement Arteriovenous fistula of right upper extremity CAD (coronary artery disease) Chronic kidney disease COVID-19 Had twice 09/2020 and 07/2021 COVID-19 vaccine administered moderna x 2 doses Diabetes Type 2, with insulin pump and continuous glucose monitoring, history of DKA when insulin pump not utilized Diabetic ulcer of foot associated with diabetes mellitus due to underlying condition, with fat layer exposed Dyslipidemia Elevated troponin 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 Essential hypertension Insulin pump in place Long-term use of high-risk medication cellcept, tacrolimus, and chronic prednisone for transplant status Paroxysmal atrial fibrillation Peripheral artery disease Prostatic enlargement Sleep apnea SVT (supraventricular tachycardia) Urinary retention Warfarin anticoagulation Surgical History (Updated 09/19/21 @ 16:10 by Shannon Ashley MD) History of angioplasty of peripheral vessel (~10/2020) History of arthroscopy of both knees History of cystoscopy History of hand surgery (~2018) right thumb History of neck surgery C6 corpectomy, C5-6, C6-7 anterior discectomy, C5-C7 plate and screw fixation, C5-C7 fusion History of partial amputation of toe of right foot (~2010) right 5th History of repair of right rotator cuff History of selective injection of anesthetic agent around lumbar nerve root L3,4,5 left and right 05/2021 History of shoulder surgery History of tonsillectomy (~2012) Hx of amputation below knee (~2018) Hx of appendectomy Hx of CABG (~2005) Hx of kidney transplant (~2011) [facility] Other postprocedural status radiofrequency ablation right L2-5 08/2019 radiofrequency ablation right L3-S1 06/2021 radiofrequency ablation left L3-S1 07/2021 Status post epidural steroid injection L4-5 right 11/2019 L3,4,5 left and right 05/2021 Family History Mother , AT AGE 94 Heart attack Father , AT AGE 45 MVA (motor vehicle accident) Other CAD (coronary artery disease) Cancer Diabetes Hypertension Social History (Updated 09/19/21 @ 20:27 by Shannon Ashley MD) Smoking and tobacco status: former smoker Alcohol intake: current Alcohol intake frequency: holidays/special occasions only Substance/Drug Use: never Adopted: No Household members: spouse Marital status: Current occupational status: retired and disabled Vitals/I&O/Wt Last Vital Signs Temp 98.3 F 09/19/21 12:42 Pulse 76 09/19/21 15:26 Resp 20 H 09/19/21 15:26 BP 110/62 09/19/21 15:26 Pulse Ox 92 09/19/21 15:26 Weight last 48 hrs Weight 89.811 kg Physical Exam Narrative: Constitutional: Patient is sleepy but easily arouses to answer questions as best he can, looks both acutely and chronically ill HEENT: Normocephalic, atraumatic, pupils are equally reactive, dry mucous membranes Neck: Prior fusion, nontender Respiratory: Clear to auscultation bilaterally without any rales rhonchi or wheezes Cardiovascular: Irregularly irregular rhythm, positive thrill right forearm AV fistula Abdomen: Soft, nontender, positive bowel sounds Extremities: 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 Dressing and boot were not removed at this time. noted this morning during dressing change and reported no worsening. Skin: Dry, scattered minor bruising at sites of blood draws, some blood noted on the bed where he bled from blood draw, no rashes, again wound to right foot was not directly evaluated at this time Neuro: Speech clear although has a discernible accent, face symmetric, handgrip equal, no abnormal movements, moves both lower extremities Psych: Normal affect Data : 09/19/21 13:28 09/19/21 13:28 Other Labs: Radiology Impressions Chest X-Ray 09/19/21 13:11 IMPRESSION: 1. Residual mild interstitial infiltrate in the right lower lung zone when compared to prior study. 2. Cardiac enlargement. 3. Blunted right costophrenic angle which may represent small pleural effusion or pleural thickening. Laboratory Results WBC 5.3 10^3/uL (4.0-10.0) 09/19/21 13:28 RBC 3.26 10^6/uL (4.1-5.3) L 09/19/21 13:28 Hgb 8.5 g/dL (11.7-16.6) L 09/19/21 13:28 Hct 28.2 % (42.0-52.0) L 09/19/21 13:28 MCV 86.5 fl (80-94) 09/19/21 13:28 MCH 26.1 pg (28.0-34.0) L 09/19/21 13:28 MCHC 30.1 g/dL (30.0-36.0) 09/19/21 13:28 RDW 16.0 % (12.1-15.1) H 09/19/21 13:28 Plt Count 191 10^3/cmm (130-400) 09/19/21 13:28 MPV 9.8 fL (7.4-10.4) 09/19/21 13:28 Neut % (Auto) 81.5 % 09/19/21 13:28 Lymph % (Auto) 9.2 % 09/19/21 13:28 [place] % (Auto) 8.1 % 09/19/21 13:28 Eos % (Auto) 0.2 % 09/19/21 13:28 Baso % (Auto) 0.4 % 09/19/21 13:28 Neut # (Auto) 4.33 10^3/uL (1.8-7.7) 09/19/21 13:28 Lymph # (Auto) 0.5 10^3/uL (0.8-4.8) L 09/19/21 13:28 [place] # (Auto) 0.4 10^3/uL (0.2-0.9) 09/19/21 13:28 Eos # (Auto) 0.0 10^3/uL (0.0-0.8) 09/19/21 13:28 Baso # (Auto) 0.0 10^3/uL (0.0-0.1) 09/19/21 13:28 Nucleated RBC % (auto) 0 % 09/19/21 13:28 Nucleated RBCs # 0.0 /100WBC 09/19/21 13:28 Sodium 133 mmol/L (136-145) L 09/19/21 13:28 Potassium 6.2 mmol/L (3.5-5.1) H 09/19/21 13:28 Chloride 106 mmol/L (98-107) 09/19/21 13:28 Carbon Dioxide 19 mmol/L (22-29) L 09/19/21 13:28 Anion Gap 14.2 (5-19) 09/19/21 13:28 BUN 34 mg/dL (8-23) H 09/19/21 13:28 Creatinine 3.0 mg/dL (0.7-1.2) H 09/19/21 13:28 GFR Calculation Not Reportable 09/19/21 13:28 Glucose 189 mg/dL (65-115) H 09/19/21 13:28 Calculated Osmolality 289 mOsm/kg (285-295) 09/19/21 13:28 Calcium 9.6 mg/dL (8.5-10.5) 09/19/21 13:28 Total Bilirubin 0.6 mg/dL (0.15-1.2) 09/19/21 13:28 AST 18 U/L (0-40) 09/19/21 13:28 ALT 9 U/L (0-41) 09/19/21 13:28 Alkaline Phosphatase 113 IU/L (40-130) 09/19/21 13:28 Troponin T Baseline 101 ng/L (0-15) H* 09/19/21 13:28 C-Reactive Protein 45.1 mg/L (0.0-4.9) H 09/19/21 13:28 Total Protein 6.3 g/dL (6.6-8.7) L 09/19/21 13:28 Albumin 3.5 g/dL (3.5-5.2) 09/19/21 13:28 Globulin 2.8 g/dL (1.3-4.6) 09/19/21 13:28 Procalcitonin 0.43 ng/mL (0-0.5) 09/19/21 13:28 Urine Color Yellow (Yellow) 09/19/21 13:55 Urine Appearance Clear (CLEAR) 09/19/21 13:55 Urine pH 9 (5-7) H 09/19/21 13:55 Ur Specific [place] 1.015 (1.005-1.030) 09/19/21 13:55 Urine Protein Neg (Negative) 09/19/21 13:55 Urine Glucose (UA) Trace (Normal) H 09/19/21 13:55 Urine Ketones Negative (Negative) 09/19/21 13:55 Urine Blood Neg (Negative) 09/19/21 13:55 Urine Nitrate Negative (Negative) 09/19/21 13:55 Urine Bilirubin Neg (Negative) 09/19/21 13:55 Prot Sulfosalicylic Acd Negative (Negative) 09/19/21 13:55 Urine Urobilinogen 4 mg/dL (Negative) H 09/19/21 13:55 Ur Leukocyte Esterase Negative (Negative) 09/19/21 13:55 Digoxin 2.1 ng/mL (0.6-1.2) H 09/19/21 13:28 Coronavirus 229E (PCR) Not detected (NOT DETECT) 09/19/21 13:36 SARS-CoV-2 (PCR) Not detected (NOT DETECT) 09/19/21 13:36 Other data: Echo from August 04, 2021 ?LV systolic function is normal with EF of 55-60% ?LA is severely dilated ?No gross valvular abnormalities ?Aortic root is mildly enlarged A&P Assessment and plan (1) MIREILLE (acute kidney injury): On chronic kidney disease in a transplanted kidney, creatinine essentially double baseline Strongly suspect this is related to recent Bactrim administration plus or minus bladder outlet obstruction from known prostrate enlargement ATN from hypotension, other medications (including home HCTZ, lasix, lisinopril), infection, stones, rejection or other etiologies also in differential Status: Acute (2) Hyperkalemia: Status: Acute (3) Digoxin toxicity: Related to above On digoxin due to history of paroxysmal atrial fibrillation Status: Acute Qualifiers: Encounter type: initial encounter Injury intent: accidental or unintentional Qualified Code(s): T46.0X1A - Poisoning by cardiac-stimulant glycosides and drugs of similar action, accidental (unintentional), initial encounter (4) Transplanted kidney: 2010, cadaveric, performed at [facility] Chronically on tacrolimus, cellcept, prednisone Status: Chronic (5) Warfarin anticoagulation: Supratherapeutic INR at 6.6 - reports home INR machine has showed level of 8 last week and this week, coumadin has been held Has had easy bleeding at home recently On for history of paroxysmal atrial fibrillation Status: Chronic (6) Anemia: With drop in hemoglobin from baseline, describes some increase in bleeding with cuts lately and blood draws today, but not enough to account for drop. Chronic losses from foot wound a consideration as are GI losses. Impact from kidney dysfunction, given now 3 episodes of acute kidney injury since May 2021 as well. Status: Acute Qualifiers: Anemia type: due to chronic kidney disease Chronic kidney disease stage: on chronic dialysis Qualified Code(s): N18.6 - End stage renal disease; D63.1 - Anemia in chronic kidney disease; Z99.2 - Dependence on renal dialysis (7) Elevated troponin: Has had elevated troponin levels for a while, though values since he had COVID in Jul 2021 are higher, no reports of chest pain Known history of CAD s/p prior CABG 09/27/20 05/25/21 08/01/21 08/03/21 09/19/21 12:07 16:45 14:38 08:37 13:28 Troponin T Baseline 79 H 85 H 125 H* 104 H* 101 H* Status: Acute (8) Elevated C-reactive protein (CRP): Downward trend from prior recent values 08/01/21 08/03/21 08/04/21 09/19/21 14:38 08:37 10:26 13:28 C-Reactive Protein 127.0 H 109.9 H 74.9 H 45.1 H Status: Acute (9) Diarrhea: Occurs every time he eats primarily suggestive of a dumping type syndrome, denies significant constipation preceeding onset, began after started antibiotics Status: Acute (10) Urinary retention: Known prostatic hypertrophy, on flomax, had acute urinary retention early August with 1L after early placement, has been seen at Dr Mcintyre office, instructed on intermittent self cath which he continued until few days ago when post void residuals were improved Status: Chronic (11) Diabetic ulcer of foot associated with diabetes mellitus due to underlying condition, with fat layer exposed: Followed at wound care clinic weekly, presently getting bid wound care changes with Dakin's solution Status post course of bactrim which completed Friday (for morganella morganii and alcaligenes feacalis from wound culture, both multi-drug resisitent) Status: Chronic Qualifiers: Diabetic foot ulcer location: midfoot Laterality: right Qualified Code(s): E08.621 - Diabetes mellitus due to underlying condition with foot ulcer; L97.412 - Non-pressure chronic ulcer of right heel and midfoot with fat layer exposed (12) Diabetes: Type 2, with insulin pump and continuous glucose monitoring A1c 09/14 was 6.25 Status: Chronic Qualifiers: Diabetes mellitus complication detail: with peripheral angiopathy without gangrene Diabetes mellitus complication status: with circulatory complication Diabetes mellitus chemical recovery operator insulin use: with chemical recovery operator use Diabetes mellitus type: type 2 Qualified Code(s): E11.51 - Type 2 diabetes mellitus with diabetic peripheral angiopathy without gangrene; Z79.4 - custodial (current) use of insulin (13) Paroxysmal atrial fibrillation: Currently in rate controlled atrial fibrillation Chronically on coreg and digoxin Status: Chronic (14) Long-term use of high-risk medication: On cellcept, tacrolimus, and chronic prednisone for transplant status Status: Chronic (15) Hypertension: Chronically on amlodipine, hydralazine, HCTZ, lasix in addition to coreg Current blood pressures are at mid normal range Status: Chronic Qualifiers: Hypertension type: renovascular hypertension Qualified Code(s): I15.0 - Renovascular hypertension (16) Dyslipidemia: Chronically on statin Status: Chronic Plan Inpatient admission Nephrology consultation IV fluids Status post usual hyperkalemia care in the emergency room plus a dose of Kayexalate Hold Lasix, HCTZ, lisinopril Recheck electrolytes later this evening and then serially, addressing accordingly Check CK level Renal transplant ultrasound Continue prednisone, tacrolimus and cellcept (or as per nephrology) Will send tracolimis level for transplant team to have at follow up, but usually takes several days to a week or so to get back results at our facility Strict I's and O's Hold digoxin Decrease carvedilol to 12.5 mg twice a day Telemetry monitoring Continue hydralazine as needed Presently holding amlodipine in addition to potentially other antihypertensive agents noted above Monitor blood pressures for need to add additional coverage Had echocardiogram done August 04, 2021, results as noted above Status post 2.5 mg oral vitamin K Follow serial INR Coumadin is held Check Hemoccult of stool and repeat H&H, may see further drop with fluids received Check TIBC Continue serial cardiac enzymes Continue home aspirin and statin Monitor for any chest pain symptoms which might merit further cardiac evaluation Will repeat CRP tomorrow Send stool for C. difficile and white blood cells Intermittent self-catheterization or bladder scan and straight cath as needed Continue home Flomax Continue usual wound care with Dakin's solution twice daily wet-to-dry dressings Allow use of patient's home insulin pump with to manage as per usual scale; should patient have evidence of persistent hypoglycemia insulin pump will be removed at such time and patient managed accordingly. Last hospital stay patient developed DKA when insulin pump was removed Check TSH Will change to proton pump inhibitor instead of patients usual H2 waqas for GI prophylaxis No pharmacological prophylaxis due to elevated INR, anemia with recent drop in hemoglobin No mechanical prophylaxis due to left BKA and RLE with dressed wound and dayan boot in place, known PAD Supportive care otherwise Findings, concerns and plans were discussed with patient and and both were given an opportunity to ask questions I did add Bactrim as a drug with adverse reaction of acute kidney injury and elevated INR, discussed with patient and , including that this is not necessarily an allergy but would require close monitoring of kidney function and INR should Bactrim be necessary for treatment going forward. Iterated that Bactrim is a very appropriate antibiotic particularly for skin wounds and in this setting where it was prescribed, a very appropriate antibiotic choice given the abnormalities identified on culture. Further explained that I cannot be 100% certain at this moment that the Bactrim was the cause of current presentation but that I was leaning towards this. Both expressed understanding. Currently anticipate disposition home with close outpatient follow-up May benefit from a local provider who can help with overall management on an ongoing basis, particularly given the repeated admissions and ED visits lately. Patient had had lab done 5 days prior to presentation indicating the significant renal dysfunction but was not contacted regarding these results. A local provider may not make a difference in such a scenario, with the comorbidities that patient has, but it is something to consider going forward as we see if there are ways to enhance outpatient care such that he does not require the same degree of ED and inpatient visits going forward. CODE STATUS was discussed with patient and his . She does have power of attendance clerk to make decisions from healthcare standpoint for him should he not be able to make decisions and both she and patient desire for FULL CODE. Attestations Medical Necessity Statement*: Anticipated stay greater than two midnights in this gentleman with a history of renal transplant, chronically immunosuppressed, presenting with acute kidney injury, hyperkalemia, dioxin toxicity, warfarin coagulopathy, among other problems above. Requires close monitoring, IV fluids, serial lab and supportive care along with further evaluation. Plans are as noted above. Coding Level of Care Code Acute Line Manager for Chg Fwd Diagnoses MIREILLE (acute kidney injury) N17.9 Digoxin toxicity T46.0X1A Encounter type: initial encounter Injury intent: accidental or unintentional Diabetic ulcer of foot associated with diabetes mellitus due to underlying condition, with fat layer exposed E08.621; L97.412 Diabetic foot ulcer location: midfoot Laterality: right Transplanted kidney Z94.0 Diabetes E11.51; Z79.4 Diabetes mellitus complication detail: with peripheral angiopathy without gangrene Diabetes mellitus complication status: with circulatory complication Diabetes mellitus chemical recovery operator insulin use: with chemical recovery operator use Diabetes mellitus type: type 2 Long-term use of high-risk medication Z79.899 Paroxysmal atrial fibrillation I48.0 Dyslipidemia E78.5 Anemia N18.6; D63.1; Z99.2 Anemia type: due to chronic kidney disease Chronic kidney disease stage: on chronic dialysis Hyperkalemia E87.5 Urinary retention R33.9 Warfarin anticoagulation Z79.01 Hypertension I15.0 Hypertension type: renovascular hypertension Diarrhea R19.7 Elevated C-reactive protein (CRP) R79.82 Elevated troponin R77.8
[2021-09-19 15:44] LABS: Adenovirus Not Detected (NOT DETECT); Chlamydia Pneumoniae Not Detected (NOT DETECT); Coronavirus 229E,HKU1,NL63,OC4 Not Detected (NOT DETECT); Human Metapneumovirus Not Detected (NOT DETECT); Human Rhinovirus/Enterovirus Not Detected (NOT DETECT); Influenza A Not Detected (NOT DETECT); Influenza A H1 Not Detected (NOT DETECT); Influenza A H1-2009 Not Detected (NOT DETECT); Influenza A H3 Not Detected (NOT DETECT); Influenza B Not Detected (NOT DETECT); Mycoplasma Pneumoniae Not Detected (NOT DETECT); Parainfluenza Virus Type 1 Not Detected (NOT DETECT); Parainfluenza Virus Type 2 Not Detected (NOT DETECT); Parainfluenza Virus Type 3 Not Detected (NOT DETECT); Parainfluenza Virus Type 4 Not Detected (NOT DETECT); Respiratory Syncytial Virus A Not Detected (NOT DETECT); Respiratory Syncytial Virus B Not Detected (NOT DETECT); SARS-COV-2 Not Detected (NOT DETECT)
[2021-09-19 16:27] LABS: Troponin 5 2HR 90.61 ng/L (0-15)
[2021-09-19 16:35] LABS: INR 6.66 (0.8-1.2)
--- NOTE | 2021-09-19 16:39 | P.CONIM_ITS ---
Providers/Reason For Consult Consulting Physician/Specialty*: francheska spivey md / telenephrology Reason for Consult*: MIREILLE, CKD 3, hyperkalemia, hyponatremia Requesting Physician: Dr Iza Ayoub Attending Physician: Dr Iza Ayoub Primary Care Provider: Harriet Rae -CLIENT SERVICES SPECIALIST History of Present Illness History of Present Illness Jaya Kidd Sr is a 76 year old male h/o CAdaveric renal tx in 2010- on tacrolimus, MMF, and prednisone, h/o a fib, recent COVID-19 + and MIREILLE in Jul 2021. PVD w/ leg wounds and infection, IDDM,obesity, and htn. Pt also recently had urinary retention, had f/u w/ - Dr. Leah Vaughn- he did self cath at home until a few days ago- when he said his PVR were low. Pt is here now w/ wekaness, diarrhea, nausea, poor po intake, and SOB. Pt found hypotensive, MIREILLE, hytperkalemia, and hyponatremia. Pts baseline cr is 1.5- developed MIREILLE in Jul 2021- CR improved to 1.5 mg/dl- on 08/12 and 08/24/21. By 09/14/21- cvr was 3.3 and today cr is 3 Review of Systems Narrative: weak, poor sugar control, headaches, n/d/sob, no swelling. Poor memory, no cp, no abd pain. states he is urinating. Medications/Allergies Home Medications Medication Instructions Recorded Confirmed Last Taken Type cetirizine 10 mg tablet (All Day 10 mg PO DAILY@09/02/19 09/19/21 09/19/21 History Allergy (cetirizine)) cholecalciferol (vitamin D3) 75 3,000 unit PO DAILY@89909/02/19 09/19/21 09/19/21 History mcg (3,000 unit) tablet mycophenolate mofetil 250 mg 500 mg PO BID@09,209909/02/19 09/19/21 09/19/21 History capsule prednisone 5 mg tablet 5 mg PO DAILY@89909/02/19 09/19/21 09/19/21 History digoxin 125 mcg (0.125 mg) tablet 125 mcg PO DAILY@89911/03/20 09/19/21 09/19/21 History sodium bicarbonate 650 mg tablet 1,300 mg PO TID@,,11/03/20 09/19/21 09/19/21 History tamsulosin 0.4 mg capsule 0.4 mg PO BEDTIME@2100 11/03/20 09/19/21 09/18/21 History warfarin 5 mg tablet See Rx Instructions .ROUTE 11/29/20 09/19/21 09/18/21 Rx .COMPLEX #90 tab insulin aspart U-100 100 unit/mL See Rx Instructions .ROUTE 05/23/21 09/19/21 09/19/21 Rx subcutaneous solution (Novolog .COMPLEX #10 ml U-100 Insulin aspart) aspirin 81 mg tablet,delayed 81 mg PO DAILY@05/25/21 09/19/21 09/19/21 H istory release (Adult Low Dose Aspirin) famotidine 20 mg tablet 20 mg PO DAILY@05/25/21 09/19/21 09/19/21 History furosemide 20 mg tablet 20 mg PO DAILY PRN 05/25/21 09/19/21 08/24/21 09:00 History atorvastatin 20 mg tablet (Lipitor) 20 mg PO BEDTIME@2100 #90 tab 07/16/21 09/19/21 09/18/21 Rx carvedilol 25 mg tablet 25 mg PO BID@08/02/21 09/19/21 09/19/21 History hydralazine 100 mg tablet 100 mg PO TID@08/02/21 09/19/21 09/19/21 History hydrochlorothiazide 12.5 mg tablet 25 mg PO DAILY@08/02/21 09/19/21 09/19/21 History lisinopril 40 mg tablet 40 mg PO DAILY@08/02/21 09/19/21 09/19/21 History tacrolimus 1 mg capsule, 1 mg PO BID@08/02/21 09/19/21 09/19/21 History immediate-release sodium hypochlorite 0.125 % 1 applic TOPICAL DAILY #473 ml 09/07/21 09/19/21 09/19/21 Rx solution (Dakin's Solution) amlodipine 5 mg tablet 10 mg PO DAILY@0900 #180 tab 09/13/21 09/19/21 09/19/21 Rx Allergies Allergy/AdvReac Type Severity Reaction Status Date / Time No Known Allergies Allergy Verified 09/19/21 14:31 PFSH Acute PFSH: Medical History (Updated 09/19/21 @ 16:10 by Shannon Ayoub MD) Aortic root enlargement Arteriovenous fistula of right upper extremity CAD (coronary artery disease) Chronic kidney disease COVID-19 (~09/2020) COVID-19 vaccine administered moderna x 2 doses Diabetes Diabetic ulcer of foot associated with diabetes mellitus due to underlying condition, with fat layer exposed Dyslipidemia Elevated troponin 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 Essential hypertension Long-term use of high-risk medication cellcept, tacrolimus, and chronic prednisone for transplant status Paroxysmal atrial fibrillation Peripheral artery disease Prostatic enlargement Sleep apnea SVT (supraventricular tachycardia) Urinary retention Warfarin anticoagulation Surgical History (Updated 09/19/21 @ 16:10 by Shannon Ayoub MD) History of angioplasty of peripheral vessel (~10/2020) History of arthroscopy of both knees History of cystoscopy History of hand surgery (~2018) right thumb History of neck surgery C6 corpectomy, C5-6, C6-7 anterior discectomy, C5-C7 plate and screw fixation, C5-C7 fusion History of partial amputation of toe of right foot (~2010) right 5th History of repair of right rotator cuff History of selective injection of anesthetic agent around lumbar nerve root L3,4,5 left and right 05/2021 History of shoulder surgery History of tonsillectomy (~2012) Hx of amputation below knee (~2018) Hx of appendectomy Hx of CABG (~2005) Hx of kidney transplant (~2011) [facility] Other postprocedural status radiofrequency ablation right L2-5 08/2019 radiofrequency ablation right L3-S1 06/2021 radiofrequency ablation left L3- S1 07/2021 Status post epidural steroid injection L4-5 right 11/2019 L3,4,5 left and right 05/2021 Family History Mother , AT AGE 94 Heart attack Father , AT AGE 45 MVA (motor vehicle accident) Other CAD (coronary artery disease) Cancer Diabetes Hypertension Social History (Updated 09/19/21 @ 16:06 by Shannon Ayoub MD) Smoking and tobacco status: former smoker Alcohol intake: current Alcohol intake frequency: holidays/special occasions only Adopted: No Household members: spouse Marital status: Current occupational status: retired and disabled Vitals/I&O/Wt Last Vital Signs Temp 98.3 F 09/19/21 12:42 Pulse 76 09/19/21 15:26 Resp 20 H 09/19/21 15:26 BP 110/62 09/19/21 15:26 Pulse Ox 92 09/19/21 15:26 Weight last 48 hrs Weight 89.811 kg Physical Exam Narrative: obese man in bed, NARD vs noted heent- nc/at, eomi, anicteric neck supple lungs andres heart irreg irreg abd soft, nt, nd, + bs ext no edema, foot wound neuro- a,a, o x 2+ Data : 09/19/21 13:28 09/19/21 13:28 A&P Assessment and plan (1) MIREILLE (acute kidney injury): 76 yr old man DM, CAD, cadaeric renal tx, PVD 1. CKD stage 3- baseline cr 1.5 mg/dl- renal tx -w/ GI symptoms- hold MMF -check tacro level in am -cont prednisone 2. MIREILLE- Q med related- pt on 2 diuretics, lisinopril, dig, DM meds. and not eating well. -check ua, ur na, cr, eos -hold javid-i, diuretics, metformin, digoxin -start IVF -no significant hydronephrosis on renal us 3. hypoantremia- likely dry and from HCTZ give ns ivf 4. hyperkalemia- fromn MIREILLE, DM , and lisinopril rx medically 5. a fib- hold dig and monitor dig levels 6. met aciodsis-Non AG- from renal failure 7. DM control per PMD 8. anemia, renal tx, prednisone use, diarrhea, nausea- consider GI eval for endoscopy Status: Acute Plan see above Consult Attestations Medical Necessity Statement: MIREILLE, hyperkalemia, DM, high dig level Time Spent in Patient Care: Greater than 35 minutes (>than 50% of time spent in counselling and/or direct pt care on unit) . Coding Level of Care Code Acute [employer] Room Attendant for [facility] Raymond Diagnoses MIREILLE (acute kidney injury) N17.9
[2021-09-19 17:26] LABS: Iron 18 ug/dL (59-158); Percent Saturation 10.4 % (20-50); Total Iron Binding Capacity 172 mcg/dl; Unsaturated Iron Binding 154 ug/dL (112-347)
[2021-09-19 17:43] LABS: Add Urine Microscopic? YES
[2021-09-19 18:01] LABS: Add Urine Culture? No; Bacteria Urine TRACE /hpf
[2021-09-19 18:07] LABS: Uric Acid 8.4 mg/dL (3.4-7.0)
[2021-09-19 18:10] LABS: Potassium, Radom Urine 16 mmol/L; Urine Random Chloride 93 mmol/L; Urine Random Sodium 169 mmol/L
[2021-09-19] MEDS: phytonadione (ADULT) 10 mg/mL Ampule 1 mL 2.5 MG PO (18:15)
[2021-09-19] MEDS: sodium polystyrene sulfonate 15 gm/60 mL Btl PO (18:48)
--- NOTE | 2021-09-19 19:12 | ECG_ITS ---
[facility] Test Date: 2021-09-19 Pat Name: Jaya Kidd Department: Room: 250 Gender: Male Creative Technologist: : 1945 Requested By: Antonio Gatica Order Number: [id number] Elena MD: Emmanuel Cornell M.D. Measurements Intervals [place] Rate: 77 P: UT: QRS: 20 QRSD: 166 T: 0 QT: 344 QTc: 390 Interpretive Statements ATRIAL FIBRILLATION RIGHT BUNDLE BRANCH BLOCK [120+ ms QRS DURATION, UPRIGHT V1, 40+ ms S IN I/aVL/V4/V5/V6] Compared to ECG 09/19/2021 15:38:40 No significant changes Electronically Signed On 09-21-2021 13:44:49 CDT by Emmanuel Cornell M.D. [id number]
[2021-09-19 20:59] LABS: Troponin 5 6HR 108.7 ng/L (0-15); Troponin 5 6HR Delta 7.7 ng/L (0-12)
[2021-09-19 21:04] LABS: Anion Gap 14.7 (5-19); Blood Urea Nitrogen 34 mg/dL (8-23); Calcium 9.7 mg/dL (8.5-10.5); Carbon Dioxide 15 mmol/L (22-29); Chloride 107 mmol/L (98-107); Glucose 148 mg/dL (65-115); Osmolality Calculated 282 mOsm/kg (285-295); Potassium 5.7 mmol/L (3.5-5.1); Sodium 131 mmol/L (136-145)
[2021-09-19] MEDS: tamsulosin 0.4 mg Capsule PO (22:01)
[2021-09-19] MEDS: atorvastatin 40 mg Tablet 20 MG PO (22:01)
[2021-09-19] MEDS: carvedilol 25 mg Tablet 12.5 MG PO (22:01)
[2021-09-19] MEDS: sodium chloride 0.9% 1,000 ML 75 ML IV (22:02)
[2021-09-19] MEDS: sodium bicarbonate 650 mg Tablet 1300 MG PO (22:02)
[2021-09-19 23:45] LABS: Potassium 5.8 mmol/L (3.5-5.1)
[2021-09-20] VITALS (10 sets, daily range): BP systolic 124–174; BP diastolic 51–76; PULSE 74–88; RESP 17–18; TEMP 36.7–37.1; O2SAT 90–96
[2021-09-20 00:51] LABS: Glucose Point of Care 62 mg/dL (70-110)
[2021-09-20] MEDS: tacrolimus 0.5 mg Capsule 1 MG PO ×3 (00:53→21:09)
--- NOTE | 2021-09-20 04:26 | PC.NURSE ---
Pt lying in bed resting and talking to staff. Pt resp even and non-labored no distress or sob noted. IV patent no redness or swelling noted. Pt had no c/o pain or discomfort at the present time. No needs voiced at the present time. Call light in reach. at bedside.
[2021-09-20 05:35] LABS: Basophils % 0.3 %; Eosinophils % 0.2 %; Hematocrit 28.4 % (42.0-52.0); Hemoglobin 8.4 g/dL (11.7-16.6); Lymphocytes # 0.7 10^3/uL (0.8-4.8); Lymphocytes % 11.2 %; Mean Corpuscular HGB Conc 29.6 g/dL (30.0-36.0); Mean Corpuscular Hemoglobin 25.8 pg (28.0-34.0); Mean Corpuscular Volume 87.1 fl (80-94); Mean Platelet Volume 9.9 fL (7.4-10.4); Monocytes # 0.5 10^3/uL (0.2-0.9); Monocytes % 8.5 %; Neutrophils # 4.68 10^3/uL (1.8-7.7); Neutrophils % 79.3 %; Nucleated Red Blood Cells % 0 %; Platelet Count 195 10^3/cmm (130-400); Red Blood Count 3.26 10^6/uL (4.1-5.3); White Blood Count 5.9 10^3/uL (4.0-10.0)
[2021-09-20 05:59] LABS: Calcium 9.5 mg/dL (8.5-10.5)
[2021-09-20 06:07] LABS: Parathyroid Hormone 167.8 pg/mL (15-65)
[2021-09-20 06:09] LABS: Hepatitis B Surface AB 51.9 (11.5-1000); Hepatitis B Surface Antigen Non-Reactive (Nonreactive); Hepatitis C Virus Antibody Non-Reactive (Nonreactive)
[2021-09-20 06:10] LABS: Alanine Aminotransferase 10 U/L (0-41); Albumin Level 3.5 g/dL (3.5-5.2); Alkaline Phosphatase 121 IU/L (40-130); Anion Gap 17.3 (5-19); Aspartate Amino Transferase 19 U/L (0-40); Blood Urea Nitrogen 30 mg/dL (8-23); C Reactive Protein 55.3 mg/L (0.0-4.9); Calcium 9.9 mg/dL (8.5-10.5); Carbon Dioxide 18 mmol/L (22-29); Chloride 107 mmol/L (98-107); Creatine Phosphokinase 60 U/L (39-308); Ferritin 359 ng/mL (30-400); Globulin 3.1 g/dL (1.3-4.6); Glucose 92 mg/dL (65-115); Magnesium 1.9 mg/dL (1.7-2.3); Osmolality Calculated 290 mOsm/kg (285-295); Phosphorus 2.4 mg/dL (2.5-4.5); Potassium 5.3 mmol/L (3.5-5.1); Sodium 137 mmol/L (136-145); Total Bilirubin 0.7 mg/dL (0.15-1.2); Total Protein 6.6 g/dL (6.6-8.7)
[2021-09-20 06:15] LABS: Thyroid Stimulating Hormone 9.05 uIU/mL (0.27-4.20)
[2021-09-20 06:19] LABS: 25 Hydroxy Vitamin D 43 ng/mL (30-100)
[2021-09-20 07:41] LABS: INR 3.92 (0.8-1.2)
[2021-09-20] MEDS: ferrous sulfate EC 325 mg Tablet PO ×3 (08:01→17:20)
[2021-09-20] MEDS: cetirizine 10 mg Tablet PO (08:01)
[2021-09-20] MEDS: sodium bicarbonate 650 mg Tablet 1300 MG PO ×3 (08:01→21:09)
[2021-09-20] MEDS: cholecalciferol (vitamin D3) 1,000 unit Tablet 3000 UNIT PO (08:01)
[2021-09-20] MEDS: predniSONE 5 mg Tablet PO (08:02)
[2021-09-20] MEDS: carvedilol 25 mg Tablet 12.5 MG PO ×2 (08:02→21:07)
[2021-09-20] MEDS: pantoprazole DR 40 mg Tablet PO (08:02)
[2021-09-20] MEDS: aspirin 81 mg EC Tablet PO (08:02)
[2021-09-20] MEDS: sodium hypochlorite 0.125% Btl 473 mL 1 APPLIC TOPICAL (08:03)
--- NOTE | 2021-09-20 08:53 | P.PN_ITS ---
Subjective Subjective: feels better. still sob. in a fib. no n/v/f/c/neil/cp Medications: Reviewed: Yes Medication Review Details: Current Medications Acetaminophen (Acetaminophen 325 Mg Tablet) 650 mg PO Q6H PRN PRN Reason: Mild/Mod Pain Or Temp >/= 101 Aspirin (Aspirin 81 Mg Ec Tablet) 81 mg PO DAILY@09 [facility] Last Admin: 09/20/21 08:02 Dose: 81 mg Documented by: Atorvastatin Calcium (Atorvastatin 40 Mg Tablet) 20 mg PO BEDTIME [facility] Last Admin: 09/19/21 22:01 Dose: 20 mg Documented by: Calcium Carbonate (Calcium Carbonate 500 Mg Chew Tablet) 500 mg PO Q4H PRN PRN Reason: DYSPEPSI Carvedilol (Carvedilol 25 Mg Tablet) 12.5 mg PO BID@ [facility] Last Admin: 09/20/21 08:02 Dose: 12.5 mg Documented by: Cetirizine HCl (Cetirizine 10 Mg Tablet) 10 mg PO DAILY@ [facility] Last Admin: 09/20/21 08:01 Dose: 10 mg Documented by: Dextrose (Dextrose 50% Syringe 50 Ml) 25 ml IVP ONCE PRN; Protocol PRN Reason: hypoglycemia protocol Dextrose (Dextrose 50% Syringe 50 Ml) 50 ml IVP PRN PRN; Protocol PRN Reason: hypoglycemia protocol Ferrous Sulfate (Ferrous Sulfate Ec 325 Mg Tablet) 325 mg PO TIDWM [facility] Last Admin: 09/20/21 08:01 Dose: 325 mg Documented by: Glucagon (Glucagon 1 Mg/Ml Inj 1 Ml) 1 mg IM ONCE PRN; Protocol PRN Reason: Adult Acute Hypoglycemia Prot. Hydralazine HCl (Hydralazine 50 Mg Tablet) 50 mg PO TID PRN PRN Reason: sbp > 160 Sodium Chloride (Sodium Chloride 0.9%) 1,000 mls @ 75 mls/hr IV .[id number] [facility] Last Admin: 09/19/21 22:02 Dose: 75 mls/hr Documented by: Dextrose (D5w) 500 mls @ 100 mls/hr IV ONCE PRN; Protocol PRN Reason: Adult Acute Hypoglycemia Prot Non-Formulary Medication (Insulin Aspart U-100 [Novolog U-100 Insulin Aspart]) 0 unit SUBCUT .COMPLEX [facility] Ondansetron HCl (Ondansetron 2 Mg/Ml Sdv 2 Ml) 4 mg IVP Q8H PRN PRN Reason: vomiting, or N/V if npo Pantoprazole Sodium (Pantoprazole Dr 40 Mg Tablet) 40 mg PO DAILY [facility] Last Admin: 09/20/21 08:02 Dose: 40 mg Documented by: Prednisone (Prednisone 5 Mg Tablet) 5 mg PO DAILY@0900 [facility] Last Admin: 09/20/21 08:02 Dose: 5 mg Documented by: Sodium Bicarbonate (Sodium Bicarbonate 650 Mg Tablet) 1,300 mg PO TID@ [facility] Last Admin: 09/20/21 08:01 Dose: 1,300 mg Documented by: Sodium Hypochlorite (Sodium Hypochlorite 0.125% Btl 473 Ml) 1 applic TOPICAL DAILY [facility] Last Admin: 09/20/21 08:03 Dose: 1 applic Documented by: Tacrolimus (Tacrolimus 0.5 Mg Capsule) 1 mg PO BID@ [facility] Last Admin: 09/20/21 08:08 Dose: 1 mg Documented by: Tamsulosin HCl (Tamsulosin 0.4 Mg Capsule) 0.4 mg PO BEDTIME@2100 [facility] Last Admin: 09/19/21 22:01 Dose: 0.4 mg Documented by: Vitamin D (Cholecalciferol (Vitamin D3) 1,000 Unit Tablet) 3,000 unit PO DAILY [facility] Last Admin: 09/20/21 08:01 Dose: 3,000 unit Documented by: Vitals/I&O/Wt Last Vital Signs Temp 98.8 F 09/20/21 08:00 Pulse 87 09/20/21 08:00 Resp 18 09/20/21 08:00 BP 149/76 09/20/21 08:00 Pulse Ox 90 09/20/21 08:00 09/19/21 09/20/21 09/20/21 22:59 06:59 14:59 Intake Total 1100 / 1100 Output Total 200 / 200 200 / 400 Balance 900 / 900 -200 / 700 Weight last 48 hrs Weight 89.811 kg Weight 89.811 kg Physical Exam Narrative: obese man in bed, NARD vs noted heent- nc/at, eomi, anicteric neck supple lungs clear heart irreg irreg abd soft, nt, nd, + bs ext - chronic leg changes and skin thickening, foot wound neuro- a,a, o x 3 Data : 09/20/21 04:29 09/20/21 04:29 Micro: Microbiology 09/19/21 19:23 Occult Blood (FIT) - Final Stool Routine Collection A&P Assessment and plan (1) Chronic kidney disease: 76 yr old man DM, CAD, cadaeric renal tx, PVD 1. CKD stage 3-? baseline cr 1.5 mg/dl- renal tx -w/ GI symptoms- hold MMF till improving. hopefully restart soon -check tacro level -cont prednisone 2. MIREILLE- Q med related- pt on 2 diuretics, lisinopril, dig, DM meds.? and not eating well. -u/a- alkalotic, trace gluc,5-110 wbc and 5-10 sq epi - ur na elevated at 169, await ur eos -cr improving off of javid-i, diuretics, metformin, digoxin -hold IVF -nild hydronephrosis of renal tx on renal us, 186 ml pvr. mild hydro should be followed w/ urology or renal tx center. however, is likely normal 3. hypoantremia- likely dry and from HCTZ -improved 4. hyperkalemia- fromn MIREILLE, DM , and lisinopril improving 5. a fib- hold dig and monitor dig levels 6. met aciodsis-Non AG- from renal failure -improving 7. DM control? per PMD 8. anemia, renal tx, prednisone use, diarrhea, nausea-? consider GI eval for endoscopy seen and examine dw/ RN- telehealth visit Status: Chronic Qualifiers: Chronic kidney disease stage: stage 3 (moderate) Chronic kidney disease stage 3 subtype: stage 3a (GFR 45-59) Qualified Code(s): N18.31 - Chronic kidney disease, stage 3a Plan see above Attestations Medical Necessity Statement*: mireille, diarrhea, renal tx Time Spent in Patient Care: 16 - 35 minutes (>than 50% of time spent in counselling and/or direct pt care on unit) . Coding Level of Care Code Acute Network Internship for [facility] Fwd Diagnoses Chronic kidney disease N18.31 Chronic kidney disease stage: stage 3 (moderate) Chronic kidney disease stage 3 subtype: stage 3a (GFR 45-59)
[2021-09-20 09:19] LABS: Digoxin 1.3 ng/mL (0.6-1.2)
[2021-09-20] MEDS: sodium chloride 0.9% 1,000 ML 75 ML IV ×2 (10:01→21:20)
--- NOTE | 2021-09-20 10:57 | PC.CHAP ---
Pastoral Care Encounter/Spiritual Assessment Type of Contact [] Declined surgeon's assistant visit [] Patient/Family/Request visit [] Outpatient visit [] Follow-up visit [] Physician referral [] Code/Alert [x] Routine visit [] Staff referral [] Actively dying [] Patient sleeping [] Family support [] [] Out of room [] Palliative care [] [x] Receiving care in room [] Pre-surgical visit [] Trauma [x] Long length of stay [] ICU visit [] Other: Relational/Emotional Strength [x] Patient feels connected with others/family/visitors/staff [] Distress [] Loneliness/isolation [] Abandonment Spirituality of Patient [x] Person of Katherine [] Attends Mormon of their Katherine [x] Believes in Prayer [] Reads Bible or Pentecostal materials [] There are Spiritual issues to be addressed Doper Operator Interventions [x] Prayer [x] Active listening [x] Non-anxious presence [x] Spiritual/emotional support [] Crisis/trauma care [x] Spiritual counseling [] Bereavement support [] Provided bereavement packet [] Provided Bible/devotional materials [] Provided toy/stuffed animal, coloring book to patient or family member [] Provided Communion [] Anointing/[place] [] Salvation [x] Completed spiritual assessment [] Other: Impact on Illness or Injury [] Angry [] Fearful [x] Anxious [] Often cries [] Exhaustion [x] Unable to work [] Unable to attend cheondoism [] Unable to walk/stand [] Unable to read [] Unable to drive [] Unable to eat/drink [] Unable to sleep [] Unable to be with family [] Patient intubated [] Other: Summary Heart rate and having a hard time eating food need dential work over time will get to go home at some point + 1 Time spent with patient 10 mins
[2021-09-20 12:08] LABS: Glucose Point of Care 55 mg/dL (70-110)
--- NOTE | 2021-09-20 13:13 | PM.PN ---
Subjective Subjective: Has occaisional mild SOB. Had a low BS of 55 this am. Pt wants to manage his DM by himself and refuses our intervention. Denies CP Vitals/I&O/Wt Last Vital Signs Temp 98.3 F 09/20/21 11:59 Pulse 85 09/20/21 11:59 Resp 18 09/20/21 11:59 BP 165/67 09/20/21 11:59 Pulse Ox 92 09/20/21 11:59 09/19/21 09/20/21 09/20/21 22:59 06:59 14:59 Intake Total 1100 / 1100 1378.75 / 1378.75 Output Total 200 / 200 200 / 400 Balance 900 / 900 -200 / 700 1378.75 / 1378.75 Weight last 48 hrs Weight 89.811 kg Weight 89.811 kg Physical Exam Narrative: NAD CVS: S1S2, IRRR, Mur (-) Resp: CTA Abd soft, NT, BS+ Edema trace COMMUNITY WORKER A&Ox3 Skin: Rt Foot ulcer Data : 09/20/21 04:29 09/20/21 04:29 Micro: Microbiology 09/19/21 19:23 Occult Blood (FIT) - Final Stool Routine Collection A&P Assessment and plan (1) Paroxysmal atrial fibrillation: rate controlled Status: Chronic (2) Diabetes: has hypoglycemic episode. On Insulin Pump Status: Chronic Qualifiers: Diabetes mellitus type: type 2 Diabetes mellitus terminal manager insulin use: with terminal manager use Diabetes mellitus complication status: with circulatory complication Diabetes mellitus complication detail: with peripheral angiopathy without gangrene Qualified Code(s): E11.51 - Type 2 diabetes mellitus with diabetic peripheral angiopathy without gangrene; Z79.4 - termite control service representative (current) use of insulin (3) Pressure ulcer of right foot: no d/c Status: Chronic Qualifiers: Pressure injury stage: stage 2 Qualified Code(s): L89.892 - Pressure ulcer of other site, stage 2 (4) CAD (coronary artery disease): stable Status: Chronic Qualifiers: Coronary Disease-Associated Artery/Lesion type: bypass graft [place] vs. transplanted heart: [place] heart Associated angina: without angina Qualified Code(s): I25.810 - Atherosclerosis of coronary artery bypass graft(s) without angina pectoris (5) Diabetic ulcer of foot associated with diabetes mellitus due to underlying condition, with fat layer exposed: Rt foot ulcer Status: Chronic Qualifiers: Diabetic foot ulcer location: midfoot Laterality: right Qualified Code(s): E08.621 - Diabetes mellitus due to underlying condition with foot ulcer; L97.412 - Non-pressure chronic ulcer of right heel and midfoot with fat layer exposed (6) Acute on chronic kidney failure: due to recent Bactrim use, dehydration Status: Acute (7) Digoxin toxicity: Asymp Status: Acute Qualifiers: Encounter type: initial encounter Injury intent: accidental or unintentional Qualified Code(s): T46.0X1A - Poisoning by cardiac-stimulant glycosides and drugs of similar action, accidental (unintentional), initial encounter (8) Hyperkalemia: due to MIREILLE. Status: Acute (9) Anemia: due chr kid dis Status: Acute Qualifiers: Anemia type: due to chronic kidney disease Chronic kidney disease stage: on chronic dialysis Qualified Code(s): N18.6 - End stage renal disease; D63.1 - Anemia in chronic kidney disease; Z99.2 - Dependence on renal dialysis (10) Dehydration: due to recent diarrhea Status: Acute (11) Transplanted kidney: Status: Chronic (12) Hypertension: stable Status: Chronic Qualifiers: Hypertension type: renovascular hypertension Qualified Code(s): I15.0 - Renovascular hypertension Plan IVF Hold Digoxin, Coumadin Hold MMF until renal function at baseline F/U BMP Hypoglycemia protocol [place] level Nephro following Attestations Medical Necessity Statement*: Pt in MIREILLE, hyperkalemic, digoxin and Coumadin toxicity. Will nneed continued hospitalization and further management Time Spent in Patient Care: 40 min Coding Level of Care Code Acute Billet Sawyer for g Fwd Diagnoses Paroxysmal atrial fibrillation I48.0 Diabetes E11.51; Z79.4 Diabetes mellitus type: type 2 Diabetes mellitus terminal manager insulin use: with terminal manager use Diabetes mellitus complication status: with circulatory complication Diabetes mellitus complication detail: with peripheral angiopathy without gangrene Pressure ulcer of right foot L89.892 Pressure injury stage: stage 2 CAD (coronary artery disease) I25.810 Coronary Disease-Associated Artery/Lesion type: bypass graft [place] vs. transplanted heart: [place] heart Associated angina: without angina Diabetic ulcer of foot associated with diabetes mellitus due to underlying condition, with fat layer exposed E08.621; L97.412 Diabetic foot ulcer location: midfoot Laterality: right Acute on chronic kidney failure N17.9; N18.9 Digoxin toxicity T46.0X1A Encounter type: initial encounter Injury intent: accidental or unintentional Hyperkalemia E87.5 Anemia N18.6; D63.1; Z99.2 Anemia type: due to chronic kidney disease Chronic kidney disease stage: on chronic dialysis Dehydration E86.0 Transplanted kidney Z94.0 Hypertension I15.0 Hypertension type: renovascular hypertension
[2021-09-20 15:00] LABS: Anion Gap 14.2 (5-19); Blood Urea Nitrogen 28 mg/dL (8-23); Calcium 9.4 mg/dL (8.5-10.5); Carbon Dioxide 17 mmol/L (22-29); Chloride 111 mmol/L (98-107); Glucose 141 mg/dL (65-115); Osmolality Calculated 290 mOsm/kg (285-295); Potassium 6.2 mmol/L (3.5-5.1); Sodium 136 mmol/L (136-145)
[2021-09-20 15:01] LABS: Digoxin 1.3 ng/mL (0.6-1.2)
--- NOTE | 2021-09-20 15:21 | PC.NURSE ---
Patient blood sugar dropped into the 50, oral supplements given and it came back up, MD aware. Vitals stable. Patient is still having frequent loose bowel movements. Will do wound care around 1700. No pain reported. Will continue to monitor and give report to night nurse.
[2021-09-20] MEDS: atorvastatin 40 mg Tablet 20 MG PO (21:08)
[2021-09-20] MEDS: tamsulosin 0.4 mg Capsule PO (21:11)
--- NOTE | 2021-09-20 23:33 | PC.NURSE ---
URINE RETENTION/LEDEZMA Pt having difficulties with urination tonight. Says he had been going fine until tonight. Only voiding minute amts and feels lilke he needs to urinate all the time. Does have recent history of requiring self cathing. Bladder found to be distended and tenderness present. Bladder scan showed >845ml Dr Calderón was called and Ledezma placed with 800ml urine return. Ledezma to bedside drainage and secured with statlock. Voicing relief after Ledezma placed
[2021-09-21] VITALS (9 sets, daily range): BP systolic 120–174; BP diastolic 49–92; PULSE 67–88; RESP 15–22; TEMP 36.4–37.5; O2SAT 92–94
[2021-09-21 03:46] LABS: Basophils % 0.4 %; Eosinophils % 0.4 %; Hematocrit 28.2 % (42.0-52.0); Hemoglobin 7.8 g/dL (11.7-16.6); Lymphocytes # 0.6 10^3/uL (0.8-4.8); Lymphocytes % 12.4 %; Mean Corpuscular HGB Conc 27.7 g/dL (30.0-36.0); Mean Platelet Volume 9.4 fL (7.4-10.4); Monocytes # 0.4 10^3/uL (0.2-0.9); Monocytes % 8.7 %; Neutrophils # 3.82 10^3/uL (1.8-7.7); Neutrophils % 77.7 %; Nucleated Red Blood Cells % 0 %; Platelet Count 156 10^3/cmm (130-400); Red Cell Distribution Width 15.9 % (12.1-15.1); White Blood Count 4.9 10^3/uL (4.0-10.0)
[2021-09-21 04:02] LABS: INR 1.76 (0.8-1.2)
[2021-09-21 04:04] LABS: Digoxin 1.1 ng/mL (0.6-1.2)
[2021-09-21 04:10] LABS: Alanine Aminotransferase 10 U/L (0-41); Albumin Level 2.8 g/dL (3.5-5.2); Alkaline Phosphatase 109 IU/L (40-130); Anion Gap 13.7 (5-19); Aspartate Amino Transferase 18 U/L (0-40); Blood Urea Nitrogen 27 mg/dL (8-23); Calcium 9.4 mg/dL (8.5-10.5); Carbon Dioxide 17 mmol/L (22-29); Chloride 111 mmol/L (98-107); Glucose 101 mg/dL (65-115); Magnesium 1.7 mg/dL (1.7-2.3); Osmolality Calculated 287 mOsm/kg (285-295); Phosphorus 2.1 mg/dL (2.5-4.5); Potassium 5.7 mmol/L (3.5-5.1); Sodium 136 mmol/L (136-145); Total Bilirubin 0.6 mg/dL (0.15-1.2); Total Protein 5.8 g/dL (6.6-8.7)
--- NOTE | 2021-09-21 05:02 | PC.NURSE ---
SHIFT SUMMARY Has rested for intervals. Had total of 1400ml urine from the Ledezma after placed. Urine with slight pink tinge this morning and has some blood drops from penis. Up to [facility]SC this am for large soft formed BM. Says is glad not diarrhea anymore. stays with pt. Pt has insulin pump with Dexcom monitoring. Pt and watch BS very closely and he will eat something if needed. Lowest reading tonight was 99 around midnight. Robert wet to dry dressing change was done to wound R foot this am.
[2021-09-21] MEDS: sodium bicarbonate 650 mg Tablet 1300 MG PO ×3 (08:31→20:13)
[2021-09-21] MEDS: cetirizine 10 mg Tablet PO (08:31)
[2021-09-21] MEDS: ferrous sulfate EC 325 mg Tablet PO ×3 (08:31→18:07)
[2021-09-21] MEDS: aspirin 81 mg EC Tablet PO (08:31)
[2021-09-21] MEDS: cholecalciferol (vitamin D3) 1,000 unit Tablet 3000 UNIT PO (08:31)
[2021-09-21] MEDS: carvedilol 25 mg Tablet 12.5 MG PO ×2 (08:32→20:12)
[2021-09-21] MEDS: predniSONE 5 mg Tablet PO (08:32)
[2021-09-21] MEDS: pantoprazole DR 40 mg Tablet PO (08:32)
[2021-09-21] MEDS: sodium hypochlorite 0.125% Btl 473 mL 1 APPLIC TOPICAL (08:33)
[2021-09-21] MEDS: tacrolimus 0.5 mg Capsule 1 MG PO ×2 (08:33→22:31)
--- NOTE | 2021-09-21 10:40 | PM.PN ---
Subjective Subjective: Mr. Kidd does feel better today with resolution of his diarrhea. Eating and drinking a little bit more. Remains on intravenous fluid. Minimal extremity edema with some slight swelling in his right leg. Breathing comfortably at rest. No uremic symptoms. Ledezma catheter placed after some urinary retention and now has some hematuria. No uremic symptoms. Good urine output otherwise. Hemodynamics look stable. Vitals/I&O/Wt Last Vital Signs Temp 98.5 F 09/21/21 08:00 Pulse 83 09/21/21 08:00 Resp 17 09/21/21 08:00 BP 134/72 09/21/21 08:00 Pulse Ox 93 09/21/21 07:45 09/20/21 09/21/21 09/21/21 22:59 06:59 14:59 Intake Total 848.75 / 2227.50 240 / 2467.50 360 / 360 Output Total 430 / 430 1710 / 2140 450 / 450 Balance 418.75 / 1797.50 -1470 / 327.50 -90 / -90 Weight last 48 hrs Weight 86.273 kg Weight 89.811 kg Weight 89.811 kg Physical Exam Narrative: Constitutional: Awake, comfortable HEENT: Wet mucosa, no jvp, non icteric Lungs: Bilaterally clear without discernible wheeze, rales in all lung zones CVS: S1 S2, no murmurs Abdo: Soft, BS ok, palpable transplant Ext 4: Minimal edema, peripheral perfusion with no cyanosis Neurological: Grossly non-focal Urinary Catheter Management: Ledezma: Cath Placed During This Visit: yes Reason for Continuing Indwelling Catheter: Acute Urinary Retention or Obstruction Urinary Catheter Date of Insertion: 09/20/21 Urinary Catheter Time of Insertion: 23:31 Data : 09/21/21 03:00 09/21/21 03:00 Micro: Microbiology 09/19/21 19:23 Stool Lactoferrin - Final Stool C.difficile Toxin B Gene (PCR) - Final A&P Assessment and plan (1) Transplanted kidney: 1. Allograft Baseline creatinine 1.5-1.7 mg/dL, creatinine improving, now 2.1 mg/dL with good urine output. MIRE[place]LE likely secondary to prerenal azotemia from intravascular volume depletion from diarrhea, high risk of having Prograf toxicity as well, level is pending. Renal function recovering which is reassuring If he has had robust oral intake today, we can consider stopping his intravenous fluid. Dose medication for GFR less than 30 Avoid usual nephrotoxic agents 2. Immunosuppression Currently on tacrolimus 1 mg p.o. twice a day as well as prednisone 5 mg daily. CellCept currently on hold, continue to hold for time being. Prograf level currently pending 3. Chemistry Combination hyperkalemia, acidosis, likely secondary to acute kidney injury and rule out Prograf toxicity (this causes type IV RTA). Currently on sodium bicarbonate Low potassium diet Pending renal recovery. 4. Diarrhea Diarrhea now resolving I doubt CellCept enteropathy given that he has been on this medication now for some time. 5. Diabetic foot wound Management per general medicine, wound care etc. 6. Hematuria Likely secondary to Ledezma trauma. Urine remains pink-tinged. We can attempt Ledezma catheter removal in the next few days with close monitoring prior to discharge. 7. Anemia Monitor H/H, low iron, will load with Venofer and give EPO x 1 also Thank you for consultation Andrea Ibrahim MD Nephrology [phone] Patient seen and examined via telemedicine, with the assistance of the bedside RN > 25 min spent in evaluation and mgmt of patient Status: Chronic Attestations Medical Necessity Statement*: renal transplant Coding Level of Care Code Acute Supervisor [employer]ating [employer] Point [employer] for Antionette Fenton Diagnoses Transplanted kidney Z94.0
--- NOTE | 2021-09-21 11:42 | P.PN_ITS ---
Subjective Subjective: Doing better. Had some bleed from the Ledezma cath insertion site from pulling the cath. Foly cath was flushed w/ resolution of hematuria. No further diarrhea. Had reg BM today. Denied N/V Vitals/I&O/Wt Last Vital Signs Temp 98.5 F 09/21/21 08:00 Pulse 83 09/21/21 08:00 Resp 17 09/21/21 08:00 BP 134/72 09/21/21 08:00 Pulse Ox 93 09/21/21 07:45 09/20/21 09/21/21 09/21/21 22:59 06:59 14:59 Intake Total 848.75 / 2227.50 240 / 2467.50 360 / 360 Output Total 430 / 430 1710 / 2140 450 / 450 Balance 418.75 / 1797.50 -1470 / 327.50 -90 / -90 Weight last 48 hrs Weight 86.273 kg Weight 89.811 kg Weight 89.811 kg Physical Exam Narrative: NAD CVS: S1S2, IRRR, Mur (-) Resp: CTA Abd soft, NT, BS+ Edema trace [employer] A&Ox3 Skin: Rt Foot ulcer Urinary Catheter Management: Ledezma: Cath Placed During This Visit: yes Reason for Continuing Indwelling Catheter: Acute Urinary Retention or Obstruction Urinary Catheter Date of Insertion: 09/20/21 Urinary Catheter Time of Insertion: 23:31 Data : 09/21/21 03:00 09/21/21 03:00 Micro: Microbiology 09/19/21 19:23 Stool Lactoferrin - Final Stool C.difficile Toxin B Gene (PCR) - Final A&P Assessment and plan (1) Acute on chronic kidney failure: Improving renal func. Cr 2.1 now. Due to dehydration from diarrhea, Bactrim, Status: Acute (2) Hyperkalemia: high but improving Status: Acute (3) Digoxin toxicity: better Status: Acute Qualifiers: Encounter type: initial encounter Injury intent: accidental or unintentional Qualified Code(s): T46.0X1A - Poisoning by cardiac-stimulant glycosides and drugs of similar action, accidental (unintentional), initial encounter (4) Warfarin anticoagulation: Toxicity improving Status: Chronic (5) Diabetes: stable On Insulin Pump Status: Chronic Qualifiers: Diabetes mellitus type: type 2 Diabetes mellitus group home insulin use: with vice president fixed income use Diabetes mellitus complication status: with circulatory complication Diabetes mellitus complication detail: with peripheral angiopathy without gangrene Qualified Code(s): E11.51 - Type 2 diabetes mellitus with diabetic peripheral angiopathy without gangrene; Z79.4 - invasive cardiovascular technologist (current) use of insulin (6) Diabetic ulcer of foot associated with diabetes mellitus due to underlying condition, with fat layer exposed: no change Status: Chronic Qualifiers: Diabetic foot ulcer location: midfoot Laterality: right Qualified Cod e(s): E08.621 - Diabetes mellitus due to underlying condition with foot ulcer; L97.412 - Non-pressure chronic ulcer of right heel and midfoot with fat layer exposed (7) Urinary retention: Has Foleys cath Status: Chronic (8) Transplanted kidney: Status: Chronic (9) Dehydration: being corrected Status: Acute (10) Anemia: asymp Status: Acute Qualifiers: Anemia type: due to chronic kidney disease Chronic kidney disease stage: on chronic dialysis Qualified Code(s): N18.6 - End stage renal disease; D63.1 - Anemia in chronic kidney disease; Z99.2 - Dependence on renal dialysis (11) Paroxysmal atrial fibrillation: rate controlled Status: Chronic (12) Diarrhea: better Status: Acute Plan Continue IVF for 1 more day as oral fluid intake is low Continue Holding Tacrolimus, F/U Level F/U renal func Attestations Medical Necessity Statement*: Pt w/ Ac on CRI, hyperkalemia, Coumadin toxicity, dehydration needs continued hospitalization for furthe stabilzation of the pt Time Spent in Patient Care: 40 min Coding Level of Care Code Acute Process Line Operator for Chg Fwd Diagnoses Acute on chronic kidney failure N17.9; N18.9 Hyperkalemia E87.5 Digoxin toxicity T46.0X1A Encounter type: initial encounter Injury intent: accidental or unintentional Warfarin anticoagulation Z79.01 Diabetes E11.51; Z79.4 Diabetes mellitus type: type 2 Diabetes mellitus group home insulin use: with vice president fixed income use Diabetes mellitus complication status: with circulatory complication Diabetes mellitus complication detail: with peripheral angiopathy without gangrene Diabetic ulcer of foot associated with diabetes mellitus due to underlying condition, with fat layer exposed E08.621; L97.412 Diabetic foot ulcer location: midfoot Laterality: right Urinary retention R33.9 Transplanted kidney Z94.0 Dehydration E86.0 Anemia N18.6; D63.1; Z99.2 Anemia type: due to chronic kidney disease Chronic kidney disease stage: on chronic dialysis Paroxysmal atrial fibrillation I48.0 Diarrhea R19.7
[2021-09-21] MEDS: iron sucrose 200 MG in sodium chloride 0.9% (100 ml) 100 ML 220 MG IV (11:44)
--- NOTE | 2021-09-21 13:20 | PC.NURSE ---
Reported to Dr. Bhat @ [phone] patient has had a few large blood clots around penis this am. Patient had a early cath placed last night and urine is reddish tented.
--- NOTE | 2021-09-21 17:45 | PC.NURSE ---
Message to Dr. Bhat: Just letting you know, 250-1 has a early. I told you this am he had a couple big clots around the opening of the penis. They placed this cath last night. The urine is still bloody. I flushed earlier today to make sure there were no clots. I have check cath to make sure it is flowing. Patient has not had any discomfort or distention. He does have a CBC in am. Just letting you know.
--- NOTE | 2021-09-21 19:04 | PC.NURSE ---
Notified Dr. Bhat of this nurse feels the patient needs to have an H/H ordered due to low hgb from this am and bleeding today. He verbally approved the order. Order was put in by this nurse.
[2021-09-21] MEDS: tamsulosin 0.4 mg Capsule PO (20:13)
[2021-09-21] MEDS: atorvastatin 40 mg Tablet 20 MG PO (20:13)
[2021-09-22] VITALS (12 sets, daily range): BP systolic 134–176; BP diastolic 67–88; PULSE 66–92; RESP 17–20; TEMP 36.4–37.1; O2SAT 91–97
[2021-09-22 02:40] LABS: Basophils % 0.2 %; Eosinophils % 0.4 %; Hematocrit 24.5 % (42.0-52.0); Hemoglobin 7.3 g/dL (11.7-16.6); Lymphocytes # 0.7 10^3/uL (0.8-4.8); Mean Corpuscular HGB Conc 29.8 g/dL (30.0-36.0); Mean Corpuscular Hemoglobin 26.1 pg (28.0-34.0); Mean Corpuscular Volume 87.5 fl (80-94); Mean Platelet Volume 10.1 fL (7.4-10.4); Monocytes # 0.5 10^3/uL (0.2-0.9); Monocytes % 11.5 %; Neutrophils # 3.27 10^3/uL (1.8-7.7); Neutrophils % 72.2 %; Nucleated Red Blood Cells % 0 %; Platelet Count 157 10^3/cmm (130-400); Red Cell Distribution Width 15.9 % (12.1-15.1); White Blood Count 4.5 10^3/uL (4.0-10.0)
[2021-09-22 03:12] LABS: Alanine Aminotransferase 9 U/L (0-41); Alkaline Phosphatase 100 IU/L (40-130); Anion Gap 12.9 (5-19); Aspartate Amino Transferase 14 U/L (0-40); Blood Urea Nitrogen 24 mg/dL (8-23); Calcium 9.3 mg/dL (8.5-10.5); Carbon Dioxide 18 mmol/L (22-29); Chloride 110 mmol/L (98-107); Globulin 2.5 g/dL (1.3-4.6); Glucose 208 mg/dL (65-115); Magnesium 1.6 mg/dL (1.7-2.3); Osmolality Calculated 290 mOsm/kg (285-295); Phosphorus 2.1 mg/dL (2.5-4.5); Potassium 5.9 mmol/L (3.5-5.1); Sodium 135 mmol/L (136-145); Total Bilirubin 0.5 mg/dL (0.15-1.2); Total Protein 5.5 g/dL (6.6-8.7)
[2021-09-22 03:18] LABS: INR 1.63 (0.8-1.2)
--- NOTE | 2021-09-22 05:45 | PC.NURSE ---
Addendum entered by Linn Villar RN 09/22/21 05:50: Physician notified of morning lab results including hyperkalemia. Original Note: Patient AAOx4, BP elevated with remaining VSS, at bedside, continues to have hematuria with blood clots in early and around it and penis/urethra. Requiring manual flush a couple times throughout shift. Good UOP into early maintained with early and irrigation. Frequent turns with assistance. No new events or needs. Room clean and clutter free, will report to oncoming nurse at shift change.
[2021-09-22] MEDS: carvedilol 25 mg Tablet 12.5 MG PO ×2 (08:29→20:02)
[2021-09-22] MEDS: ferrous sulfate EC 325 mg Tablet PO ×3 (08:29→17:45)
[2021-09-22] MEDS: sodium bicarbonate 650 mg Tablet 1300 MG PO ×3 (08:29→20:02)
[2021-09-22] MEDS: cholecalciferol (vitamin D3) 1,000 unit Tablet 3000 UNIT PO (08:29)
[2021-09-22] MEDS: cetirizine 10 mg Tablet PO (08:29)
[2021-09-22] MEDS: pantoprazole DR 40 mg Tablet PO (08:29)
[2021-09-22] MEDS: tacrolimus 0.5 mg Capsule 1 MG PO ×2 (08:30→20:02)
[2021-09-22] MEDS: predniSONE 5 mg Tablet PO (08:30)
[2021-09-22] MEDS: aspirin 81 mg EC Tablet PO (08:30)
[2021-09-22] MEDS: sodium hypochlorite 0.125% Btl 473 mL 1 APPLIC TOPICAL (08:32)
--- NOTE | 2021-09-22 09:21 | PM.PN ---
Subjective Subjective: Mr. Kidd remains comfortable today. Doing well. No diarrhea. Good urine output. Minimal extremity edema. Ledezma catheter remains in with pink lemonade colored urine. No overt hematuria. Hemodynamics reviewed, remained stable. Medications: Reviewed: Yes Medication Review Details: Current Medications Acetaminophen (Acetaminophen 325 Mg Tablet) 650 mg PO Q6H PRN PRN Reason: Mild/Mod Pain Or Temp >/= 101 Aspirin (Aspirin 81 Mg Ec Tablet) 81 mg PO DAILY@ [facility] Last Admin: 09/20/21 08:02 Dose: 81 mg Documented by: Atorvastatin Calcium (Atorvastatin 40 Mg Tablet) 20 mg PO BEDTIME [facility] Last Admin: 09/19/21 22:01 Dose: 20 mg Documented by: Calcium Carbonate (Calcium Carbonate 500 Mg Chew Tablet) 500 mg PO Q4H PRN PRN Reason: DYSPEPSI Carvedilol (Carvedilol 25 Mg Tablet) 12.5 mg PO BID@ [facility] Last Admin: 09/20/21 08:02 Dose: 12.5 mg Documented by: Cetirizine HCl (Cetirizine 10 Mg Tablet) 10 mg PO DAILY@ [facility] Last Admin: 09/20/21 08:01 Dose: 10 mg Documented by: Dextrose (Dextrose 50% Syringe 50 Ml) 25 ml IVP ONCE PRN; Protocol PRN Reason: hypoglycemia protocol Dextrose (Dextrose 50% Syringe 50 Ml) 50 ml IVP PRN PRN; Protocol PRN Reason: hypoglycemia protocol Ferrous Sulfate (Ferrous Sulfate Ec 325 Mg Tablet) 325 mg PO TIDWM [facility] Last Admin: 09/20/21 08:01 Dose: 325 mg Documented by: Glucagon (Glucagon 1 Mg/Ml Inj 1 Ml) 1 mg IM ONCE PRN; Protocol PRN Reason: Adult Acute Hypoglycemia Prot. Hydralazine HCl (Hydralazine 50 Mg Tablet) 50 mg PO TID PRN PRN Reason: sbp > 160 Sodium Chloride (Sodium Chloride 0.9%) 1,000 mls @ 75 mls/hr IV .[id number] [facility] Last Admin: 09/19/21 22:02 Dose: 75 mls/hr Documented by: Dextrose (D5w) 500 mls @ 100 mls/hr IV ONCE PRN; Protocol PRN Reason: Adult Acute Hypoglycemia Prot Non-Formulary Medication (Insulin Aspart U-100 [Novolog U-100 Insulin Aspart]) 0 unit SUBCUT .COMPLEX GLADIS Ondansetron HCl (Ondansetron 2 Mg/Ml Sdv 2 Ml) 4 mg IVP Q8H PRN PRN Reason: vomiting, or N/V if npo Pantoprazole Sodium (Pantoprazole Dr 40 Mg Tablet) 40 mg PO DAILY [facility] Last Admin: 09/20/21 08:02 Dose: 40 mg Documented by: Prednisone (Prednisone 5 Mg Tablet) 5 mg PO DAILY@0900 [facility] Last Admin: 09/20/21 08:02 Dose: 5 mg Documented by: Sodium Bicarbonate (Sodium Bicarbonate 650 Mg Tablet) 1,300 mg PO TID@ [facility] Last Admin: 09/20/21 08:01 Dose: 1,300 mg Documented by: Sodium Hypochlorite (Sodium Hypochlorite 0.125% Btl 473 Ml) 1 applic TOPICAL DAILY [facility] Last Admin: 09/20/21 08:03 Dose: 1 applic Documented by: Tacrolimus (Tacrolimus 0.5 Mg Capsule) 1 mg PO BID@ [facility] Last Admin: 09/20/21 08:08 Dose: 1 mg Documented by: Tamsulosin HCl (Tamsulosin 0.4 Mg Capsule) 0.4 mg PO BEDTIME@2100 [facility] Last Admin: 09/19/21 22:01 Dose: 0.4 mg Documented by: Vitamin D (Cholecalciferol (Vitamin D3) 1,000 Unit Tablet) 3,000 unit PO DAILY [facility] Last Admin: 09/20/21 08:01 Dose: 3,000 unit Documented by: Vitals/I&O/Wt Last Vital Signs Temp 98.8 F 09/22/21 07:03 Pulse 73 09/22/21 07:03 Resp 18 09/22/21 07:03 BP 149/72 09/22/21 07:03 Pulse Ox 91 09/22/21 07:03 09/21/21 09/22/21 09/22/21 22:59 06:59 14:59 Intake Total 1455 / 2055 180 / 2235 240 / 240 Output Total 1050 / 1500 1700 / 3200 Balance 405 / 555 -1520 / -965 240 / 240 Weight last 48 hrs Weight 86.183 kg Weight 86.273 kg Physical Exam Narrative: Constitutional: Awake, comfortable HEENT: Wet mucosa, no jvp, non icteric Lungs: Bilaterally clear without discernible wheeze, rales in all lung zones CVS: S1 S2, no murmurs Abdo: Soft, BS ok, palpable transplant Ext 4: Minimal edema, peripheral perfusion with no cyanosis Neurological: Grossly non-focal Urinary Catheter Management: Ledezma: Cath Placed During This Visit: yes Reason for Continuing Indwelling Catheter: Accurate Measurement of Urinary Output in Critically Ill Patients Urinary Catheter Date of Insertion: 09/20/21 Urinary Catheter Time of Insertion: 23:31 Data : 09/22/21 02:30 09/22/21 02:30 A&P Assessment and plan (1) Transplanted kidney: 1. Allograft Baseline creatinine 1.5-1.7 mg/dL, Creatinine slightly increased since yesterday, 2.1 now 2.3. Likely prerenal on admission, although, his lack of ongoing recovery is concerning. Prograf levels look okay at 4.8 If he fails to continue to recover, would consider transplant renal biopsy and with this in mind we will hold aspirin for the time being. Repeat labs this afternoon Immunosuppression as below If he has had robust oral intake today, we can consider stopping his intravenous fluid. Dose medication for GFR less than 30 Avoid usual nephrotoxic agents 2. Immunosuppression Currently on tacrolimus 1 mg p.o. twice a day as well as prednisone 5 mg daily. CellCept to resume 500mg po daily Prograf level 4.8, repeat trough pending 3. Chemistry Combination hyperkalemia, acidosis, likely secondary to acute kidney injury and Prograf Add Jessicainef Currently on sodium bicarbonate Low potassium diet + 1 dose of kayexalate Repeat BMP later today 4. Diarrhea Diarrhea now resolving I doubt CellCept enteropathy given that he has been on this medication now for some time. 5. Diabetic foot wound Management per general medicine, wound care etc. 6. Hematuria Likely secondary to Ledezma trauma. Urine remains pink-tinged. We can attempt Ledezma catheter removal in the next few days with close monitoring prior to discharge. 7. Anemia Monitor H/H, low iron, will load with Venofer and EPO x 1 also on 09/21 Thank you for consultation Andrea Ibrahim MD Nephrology [phone] Patient seen and examined via telemedicine, with the assistance of the bedside RN > 25 min spent in evaluation and mgmt of patient Status: Chronic Attestations Medical Necessity Statement*: transplant care Coding Level of Care Code Acute Central Processing Tech for Chg Fwd Diagnoses Transplanted kidney Z94.0
[2021-09-22] MEDS: iron sucrose 200 MG in sodium chloride 0.9% (100 ml) 100 ML 220 MG IV (09:45)
[2021-09-22] MEDS: sodium polystyrene sulfonate 15 gm/60 mL Btl PO (09:45)
[2021-09-22] MEDS: fludrocortisone 0.1 mg Tablet PO (09:45)
--- NOTE | 2021-09-22 10:42 | PC.SOCIAL ---
IMM update IMM updated with patient and . Copy Pg 2 provided. Verbalized an understanding. Initialled, dated, timed, and placed in chart.
--- NOTE | 2021-09-22 12:20 | PM.PN ---
Subjective Subjective: Patient was seen and examined this morning, continue to have hematuria, hb has down trended to 7.3 today,patient deny any active complain,wants to go home,also want to work with physical therapy. His other vitals and labs have been reviewed. Medications: Reviewed: Yes Medication Review Details: Current Medications Acetaminophen (Acetaminophen 325 Mg Tablet) 650 mg PO Q6H PRN PRN Reason: Mild/Mod Pain Or Temp >/= 101 Aspirin (Aspirin 81 Mg Ec Tablet) 81 mg PO DAILY@ [facility] Last Admin: 09/20/21 08:02 Dose: 81 mg Documented by: Atorvastatin Calcium (Atorvastatin 40 Mg Tablet) 20 mg PO BEDTIME [facility] Last Admin: 09/19/21 22:01 Dose: 20 mg Documented by: Calcium Carbonate (Calcium Carbonate 500 Mg Chew Tablet) 500 mg PO Q4H PRN PRN Reason: DYSPEPSI Carvedilol (Carvedilol 25 Mg Tablet) 12.5 mg PO BID@ [facility] Last Admin: 09/20/21 08:02 Dose: 12.5 mg Documented by: Cetirizine HCl (Cetirizine 10 Mg Tablet) 10 mg PO DAILY@ [facility] Last Admin: 09/20/21 08:01 Dose: 10 mg Documented by: Dextrose (Dextrose 50% Syringe 50 Ml) 25 ml IVP ONCE PRN; Protocol PRN Reason: hypoglycemia protocol Dextrose (Dextrose 50% Syringe 50 Ml) 50 ml IVP PRN PRN; Protocol PRN Reason: hypoglycemia protocol Ferrous Sulfate (Ferrous Sulfate Ec 325 Mg Tablet) 325 mg PO TIDWM [facility] Last Admin: 09/20/21 08:01 Dose: 325 mg Documented by: Glucagon (Glucagon 1 Mg/Ml Inj 1 Ml) 1 mg IM ONCE PRN; Protocol PRN Reason: Adult Acute Hypoglycemia Prot. Hydralazine HCl (Hydralazine 50 Mg Tablet) 50 mg PO TID PRN PRN Reason: sbp > 160 Sodium Chloride (Sodium Chloride 0.9%) 1,000 mls @ 75 mls/hr IV .[id number] [facility] Last Admin: 09/19/21 22:02 Dose: 75 mls/hr Documented by: Dextrose (D5w) 500 mls @ 100 mls/hr IV ONCE PRN; Protocol PRN Reason: Adult Acute Hypoglycemia Prot Non-Formulary Medication (Insulin Aspart U-100 [Novolog U-100 Insulin Aspart]) 0 unit SUBCUT .COMPLEX [facility] Ondansetron HCl (Ondansetron 2 Mg/Ml Sdv 2 Ml) 4 mg IVP Q8H PRN PRN Reason: vomiting, or N/V if npo Pantoprazole Sodium (Pantoprazole Dr 40 Mg Tablet) 40 mg PO DAILY [facility] Last Admin: 09/20/21 08:02 Dose: 40 mg Documented by: Prednisone (Prednisone 5 Mg Tablet) 5 mg PO DAILY@0900 [facility] Last Admin: 09/20/21 08:02 Dose: 5 mg Documented by: Sodium Bicarbonate (Sodium Bicarbonate 650 Mg Tablet) 1,300 mg PO TID@ [facility] Last Admin: 09/20/21 08:01 Dose: 1,300 mg Documented by: Sodium Hypochlorite (Sodium Hypochlorite 0.125% Btl 473 Ml) 1 applic TOPICAL DAILY [facility] Last Admin: 09/20/21 08:03 Dose: 1 applic Documented by: Tacrolimus (Tacrolimus 0.5 Mg Capsule) 1 mg PO BID@ [facility] Last Admin: 09/20/21 08:08 Dose: 1 mg Documented by: Tamsulosin HCl (Tamsulosin 0.4 Mg Capsule) 0.4 mg PO BEDTIME@2100 [facility] Last Admin: 09/19/21 22:01 Dose: 0.4 mg Documented by: Vitamin D (Cholecalciferol (Vitamin D3) 1,000 Unit Tablet) 3,000 unit PO DAILY [facility] Last Admin: 09/20/21 08:01 Dose: 3,000 unit Documented by: Vitals/I&O/Wt Last Vital Signs Temp 98.6 F 09/22/21 10:59 Pulse 81 09/22/21 10:59 Resp 17 09/22/21 10:59 BP 134/72 09/22/21 10:59 Pulse Ox 91 09/22/21 10:59 09/21/21 09/22/21 09/22/21 22:59 06:59 14:59 Intake Total 1455 / 2055 180 / 2235 240 / 240 Output Total 1050 / 1500 1700 / 3200 Balance 405 / 555 -1520 / -965 240 / 240 Weight last 48 hrs Weight 86.183 kg Weight 86.273 kg Physical Exam Const: COMMON NORMALS: patient oriented x3 HENMT: COMMON NORMALS: normocephalic and atraumatic HEAD & SCALP: normocephalic and atraumatic Chest: CHEST: Yes Symmetrical chest wall rise Resp: COMMON NORMALS: normal respiratory effort, No retractions, No use of accessory muscles and clear to auscultation bilaterally EFFORT & INSPECTION: Yes symmetric chest movement AUSCULTATION: clear to auscultation bilaterally Cardio: COMMON NORMALS: regular rate, regular rhythm, S1 normal heart sound present, S2 normal heart sound present, No gallops present (Cardio), No murmurs present (Cardio), No rub (Cardio) and Peripheral pulses 2+ throughout RATE: regular rate RHYTHM: regular rhythm HEART SOUNDS: S1 normal heart sound present and S2 normal heart sound present PERIPHERAL PULSES: Peripheral pulses 2+ throughout GI: COMMON NORMALS: Normal to inspection, nondistended, normoactive bowel sounds present, Soft to palpation, non-tender, No hepatosplenomegaly present and no masses AUSCULTATION: Yes normoactive bowel sounds PALPATION: Yes Soft to palpation and Yes No hepatosplenomegaly present RECTAL EXAM: Yes deferred Neuro: COMMON NORMALS: patient oriented x3 Urinary Catheter Management: Ledezma: Cath Placed During This Visit: yes Reason for Continuing Indwelling Catheter: Accurate Measurement of Urinary Output in Critically Ill Patients Urinary Catheter Date of Insertion: 09/20/21 Urinary Catheter Time of Insertion: 23:31 Data : 09/22/21 02:30 09/22/21 02:30 A&P Assessment and plan (1) Acute on chronic kidney failure: Improving renal func. Cr 2.1 now. Due to dehydration from diarrhea, Bactrim, Status: Acute (2) Hyperkalemia: high but improving Status: Acute (3) Digoxin toxicity: better Status: Acute Qualifiers: Encounter type: initial encounter Injury intent: accidental or unintentional Qualified Code(s): T46.0X1A - Poisoning by cardiac-stimulant glycosides and drugs of similar action, accidental (unintentional), initial encounter (4) Warfarin anticoagulation: Toxicity improving Status: Chronic (5) Diabetes: stable On Insulin Pump Status: Chronic Qualifiers: Diabetes mellitus complication detail: with peripheral angiopathy without gangrene Diabetes mellitus complication status: with circulatory complication Diabetes mellitus adjunct faculty for medical terminology insulin use: with adjunct faculty for medical terminology use Diabetes mellitus type: type 2 Qualified Code(s): E11.51 - Type 2 diabetes mellitus with diabetic peripheral angiopathy without gangrene; Z79.4 - snf (current) use of insulin (6) Diabetic ulcer of foot associated with diabetes mellitus due to underlying condition, with fat layer exposed: no change Status: Chronic Qualifiers: Diabetic foot ulcer location: midfoot Laterality: right Qualified Code(s): E08.621 - Diabetes mellitus due to underlying condition with foot ulcer; L97.412 - Non-pressure chronic ulcer of right heel and midfoot with fat layer exposed (7) Urinary retention: Has Foleys cath Status: Chronic (8) Transplanted kidney: Status: Chronic (9) Dehydration: being corrected Status: Acute (10) Anemia: asymp Status: Acute Qualifiers: Anemia type: due to chronic kidney disease Chronic kidney disease stage: on chronic dialysis Qualified Code(s): N18.6 - End stage renal disease; D63.1 - Anemia in chronic kidney disease; Z99.2 - Dependence on renal dialysis (11) Paroxysmal atrial fibrillation: rate controlled Status: Chronic (12) Diarrhea: better Status: Acute Plan 76 year old male with PMH of 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 PVD w/ leg wounds and infection, IDDM,obesity, and htn.? Pt also recently had urinary retention, had f/u w/ - Dr. Leah Vaughn- he did self cath at home until a few days ago- when he said his PVR were low.? Came in with c/o wekaness, diarrhea, nausea, poor po intake, and SOB.? On Admission he was hypotensive, MIREILLE, hytperkalemia, and hyponatremia. #Assessment : MIREILLE ON CKD Stage 3 : Multifactorail Diuretic,diarrhea,medications, Baseline SCR : 1.5 Admission SCR : 3 Random Urine Na :160 and CR: , Monitor BMP Monitor I/O Charting Avoid Nephrt Has received I.V Hydration which has been stopped #Cadaveric renal tx in 2010 on tacrolimus, MMF, and prednisone #Anemia DALJIT ( Serum iron low as well as % Saturation , ferritin : 359 ( likely due to renal disease ) I.V Venofer, followed by EPO IU PRBC Monitor H&h # Hematuria :Likely 2/2 to supratherapeutic INR Folley in place No need for CBI For now Folley flush Continue urology f/u as outpatient Was doing self cath prior to admission. #Hyperkalemia : Routine management Monitor Serum K Tele #Hx A.Fib :H/R Well controlled Continue Carvedilol On DIgoxin ( Currently on hold ) On Warfarin( On Hold ) # Diarrhea : C.Diff :Negative #Urinary Retention : Ledezma In place #DM On Insulin Pump #Code Status :Full code Attestations Medical Necessity Statement*: Patient needs to be in hospital for the manement of MIREILLE,Anemia,hyperkalemia. Time Spent in Patient Care: Greater than 35 minutes (>than 50% of time spent in counselling and/or direct pt care on unit). Coding Level of Care Code Acute Process Plant Operator for Chg Fwd Exam Detailed Diagnoses Acute on chronic kidney failure N17.9; N18.9 Hyperkalemia E87.5 Digoxin toxicity T46.0X1A Encounter type: initial encounter Injury intent: accidental or unintentional Warfarin anticoagulation Z79.01 Diabetes E11.51; Z79.4 Diabetes mellitus complication detail: with peripheral angiopathy without gangrene Diabetes mellitus complication status: with circulatory complication Diabetes mellitus care home insulin use: with care home use Diabetes mellitus type: type 2 Diabetic ulcer of foot associated with diabetes mellitus due to underlying condition, with fat layer exposed E08.621; L97.412 Diabetic foot ulcer location: midfoot Laterality: right Urinary retention R33.9 Transplanted kidney Z94.0 Dehydration E86.0 Anemia N18.6; D63.1; Z99.2 Anemia type: due to chronic kidney disease Chronic kidney disease stage: on chronic dialysis Paroxysmal atrial fibrillation I48.0 Diarrhea R19.7
--- NOTE | 2021-09-22 14:31 | PC.PT ---
PT eval attempted but nursing requested him to be on hold today. Pt has low hemaglobin and just started recieving blood and it will take three hours. Nursing suggested seeing him when Hemoglobin is up tomorrow. Will re attempt tomorrow.
[2021-09-22 18:04] LABS: Anion Gap 13.7 (5-19); Blood Urea Nitrogen 24 mg/dL (8-23); Calcium 9.4 mg/dL (8.5-10.5); Carbon Dioxide 18 mmol/L (22-29); Chloride 105 mmol/L (98-107); Glucose 308 mg/dL (65-115); Osmolality Calculated 288 mOsm/kg (285-295); Potassium 5.7 mmol/L (3.5-5.1); Sodium 131 mmol/L (136-145)
[2021-09-22 19:58] LABS: Hematocrit 26.9 % (42.0-52.0); Hemoglobin 8.2 g/dL (11.7-16.6)
[2021-09-22] MEDS: tamsulosin 0.4 mg Capsule PO (20:02)
[2021-09-22] MEDS: atorvastatin 40 mg Tablet 20 MG PO (20:02)
[2021-09-23] VITALS (9 sets, daily range): BP systolic 134–166; BP diastolic 71–79; PULSE 72–86; RESP 16–18; TEMP 36.7–37.4; O2SAT 92–96
--- NOTE | 2021-09-23 05:44 | PC.NURSE ---
Patient slept well throughout night, AAOx4 with less lethargy, hematuria seems to be improving and no manual flush to early throughout shift. No c/o pain, VSS, remains at bedside. No new events or concerns, good UOP, excited to work with PT tomorrow. Will report to oncoming nurse at shift change.
[2021-09-23 06:36] LABS: Basophils % 0.4 %; Eosinophils % 0.5 %; Hematocrit 26.4 % (42.0-52.0); Lymphocytes # 0.8 10^3/uL (0.8-4.8); Lymphocytes % 15.2 %; Mean Corpuscular HGB Conc 30.3 g/dL (30.0-36.0); Mean Corpuscular Hemoglobin 26.5 pg (28.0-34.0); Mean Corpuscular Volume 87.4 fl (80-94); Mean Platelet Volume 9.7 fL (7.4-10.4); Monocytes # 0.7 10^3/uL (0.2-0.9); Monocytes % 11.7 %; Neutrophils # 3.93 10^3/uL (1.8-7.7); Neutrophils % 70.9 %; Nucleated Red Blood Cells % 0 %; Platelet Count 159 10^3/cmm (130-400); Red Blood Count 3.02 10^6/uL (4.1-5.3); Red Cell Distribution Width 15.9 % (12.1-15.1); White Blood Count 5.5 10^3/uL (4.0-10.0)
[2021-09-23 07:13] LABS: Anion Gap 14.2 (5-19); Blood Urea Nitrogen 23 mg/dL (8-23); Calcium 9.5 mg/dL (8.5-10.5); Carbon Dioxide 18 mmol/L (22-29); Chloride 108 mmol/L (98-107); Glucose 236 mg/dL (65-115); Osmolality Calculated 291 mOsm/kg (285-295); Potassium 5.2 mmol/L (3.5-5.1); Sodium 135 mmol/L (136-145)
[2021-09-23] MEDS: ferrous sulfate EC 325 mg Tablet PO ×2 (08:12→17:54)
[2021-09-23] MEDS: cetirizine 10 mg Tablet PO (08:12)
[2021-09-23] MEDS: sodium bicarbonate 650 mg Tablet 1300 MG PO ×3 (08:12→20:42)
[2021-09-23] MEDS: cholecalciferol (vitamin D3) 1,000 unit Tablet 3000 UNIT PO (08:12)
[2021-09-23] MEDS: pantoprazole DR 40 mg Tablet PO (08:12)
[2021-09-23] MEDS: predniSONE 5 mg Tablet PO (08:12)
[2021-09-23] MEDS: tacrolimus 0.5 mg Capsule 1 MG PO ×2 (08:13→20:41)
[2021-09-23] MEDS: carvedilol 25 mg Tablet 12.5 MG PO ×2 (08:13→20:41)
[2021-09-23] MEDS: sodium hypochlorite 0.125% Btl 473 mL 1 APPLIC TOPICAL (08:18)
[2021-09-23] MEDS: fludrocortisone 0.1 mg Tablet PO (08:24)
--- NOTE | 2021-09-23 08:33 | PM.PN ---
Subjective Subjective: feels well. no n/v/f/c/neil/d/leg pains Medications: Reviewed: Yes Medication Review Details: Current Medications Acetaminophen (Acetaminophen 325 Mg Tablet) 650 mg PO Q6H PRN PRN Reason: Mild/Mod Pain Or Temp >/= 101 Atorvastatin Calcium (Atorvastatin 40 Mg Tablet) 20 mg PO BEDTIME [facility] Last Admin: 09/22/21 20:02 Dose: 20 mg Documented by: Calcium Carbonate (Calcium Carbonate 500 Mg Chew Tablet) 500 mg PO Q4H PRN PRN Reason: DYSPEPSI Carvedilol (Carvedilol 25 Mg Tablet) 12.5 mg PO BID@ [facility] Last Admin: 09/23/21 08:13 Dose: 12.5 mg Documented by: Cetirizine HCl (Cetirizine 10 Mg Tablet) 10 mg PO DAILY@ [facility] Last Admin: 09/23/21 08:12 Dose: 10 mg Documented by: Dextrose (Dextrose 50% Syringe 50 Ml) 25 ml IVP ONCE PRN; Protocol PRN Reason: hypoglycemia protocol Dextrose (Dextrose 50% Syringe 50 Ml) 50 ml IVP PRN PRN; Protocol PRN Reason: hypoglycemia protocol Ferrous Sulfate (Ferrous Sulfate Ec 325 Mg Tablet) 325 mg PO TIDWM [facility] Last Admin: 09/23/21 08:12 Dose: 325 mg Documented by: Fludrocortisone Acetate (Fludrocortisone 0.1 Mg Tablet) 0.1 mg PO DAILY [facility] Last Admin: 09/23/21 08:24 Dose: 0.1 mg Documented by: Glucagon (Glucagon 1 Mg/Ml Inj 1 Ml) 1 mg IM ONCE PRN; Protocol PRN Reason: Adult Acute Hypoglycemia Prot. Hydralazine HCl (Hydralazine 50 Mg Tablet) 50 mg PO TID PRN PRN Reason: sbp > 160 Dextrose (D5w) 500 mls @ 100 mls/hr IV ONCE PRN; Protocol PRN Reason: Adult Acute Hypoglycemia Prot Iron Sucrose 200 mg/ Sodium (Chloride) 110 mls @ 220 mls/hr IV Q24H [facility] Stop: 09/25/21 11:14 Last Infusion: 09/22/21 10:15 Dose: Infused Documented by: Mycophenolate Mofetil (Mycophenolate Mofetil 500 Mg Tablet) 500 mg PO DAILY [facility] Last Admin: 09/23/21 08:24 Dose: 500 mg Documented by: Non-Formulary Medication (Insulin Aspart U-100 [Novolog U-100 Insulin Aspart]) 0 unit SUBCUT .COMPLEX [facility] Ondansetron HCl (Ondansetron 2 Mg/Ml Sdv 2 Ml) 4 mg IVP Q8H PRN PRN Reason: vomiting, or N/V if npo Pantoprazole Sodium (Pantoprazole Dr 40 Mg Tablet) 40 mg PO DAILY [facility] Last Admin: 09/23/21 08:12 Dose: 40 mg Documented by: Prednisone (Prednisone 5 Mg Tablet) 5 mg PO DAILY@0900 [facility] Last Admin: 09/23/21 08:12 Dose: 5 mg Documented by: Sodium Bicarbonate (Sodium Bicarbonate 650 Mg Tablet) 1,300 mg PO TID@ [facility] Last Admin: 09/23/21 08:12 Dose: 1,300 mg Documented by: Sodium Hypochlorite (Sodium Hypochlorite 0.125% Btl 473 Ml) 1 applic TOPICAL DAILY [facility] Last Admin: 09/23/21 08:18 Dose: 1 applic Documented by: Tacrolimus (Tacrolimus 0.5 Mg Capsule) 1 mg PO BID@ [facility] Last Admin: 09/23/21 08:13 Dose: 1 mg Documented by: Tamsulosin HCl (Tamsulosin 0.4 Mg Capsule) 0.4 mg PO BEDTIME@2100 [facility] Last Admin: 09/22/21 20:02 Dose: 0.4 mg Documented by: Vitamin D (Cholecalciferol (Vitamin D3) 1,000 Unit Tablet) 3,000 unit PO DAILY [facility] Last Admin: 09/23/21 08:12 Dose: 3,000 unit Documented by: Vitals/I&O/Wt Last Vital Signs Temp 98.4 F 09/23/21 07:06 Pulse 81 09/23/21 07:06 Resp 18 09/23/21 07:06 BP 164/72 09/23/21 07:06 Pulse Ox 96 09/23/21 07:06 09/22/21 09/23/21 09/23/21 22:59 06:59 14:59 Intake Total 700 / 1290 Output Total 250 / 950 1600 / 2550 Balance 450 / 340 -1600 / -1260 Weight last 48 hrs Weight 85.411 kg Weight 86.183 kg Physical Exam Narrative: obese man in bed, NARD vs noted heent- nc/at, eomi, anicteric neck supple lungs clear heart irreg irreg abd soft, nt, nd, + bs ext - chronic leg changes and skin thickening, rt foot wound wrapped neuro- a,a, o x 3 Urinary Catheter Management: Ledezma: Cath Placed During This Visit: yes Reason for Continuing Indwelling Catheter: Acute Urinary Retention or Obstruction Urinary Catheter Date of Insertion: 09/20/21 Urinary Catheter Time of Insertion: 23:31 Data : 09/23/21 06:15 09/23/21 06:15 A&P Assessment and plan (1) Transplanted kidney: 1. Allograft Baseline creatinine 1.5-1.7 mg/dL. -?MIREILLE- Q med related- pt on 2 diuretics, lisinopril, dig, DM meds.? and not eating well. -u/a- alkalotic, trace gluc,5-110 wbc and 5-10 sq epi - ur na elevated at 169, await ur eos -cr improving off of javid-i, diuretics, metformin, digoxin -Prograf levels look okay at 4.8 d/c intravenous fluid. Dose medication for GFR less than 30 Avoid usual nephrotoxic agents 2. Immunosuppression Currently on tacrolimus 1 mg p.o. twice a day as well as prednisone 5 mg daily. CellCept to inc to 500mg po bid Prograf level 4.8, repeat trough pending 3. Chemistry Combination hyperkalemia, acidosis, likely secondary to acute kidney injury and Prograf -improving on Florinef, and sodium bicarbonate Low potassium diet 4. Diarrhea Diarrhea now resolving 5. htn-add norvasc 5 daily 6. Diabetic foot wound Management per general medicine, wound care etc. 7. Hematuria Likely secondary to Ledezma trauma. Urine remains pink-tinged. We can attempt Ledezma catheter removal in the next few days with close monitoring prior to discharge. 8. Anemia Monitor H/H, low iron, will load with Venofer and EPO x 1 also on 09/21 9. hyponatremia -likely from hctz Thank you for consultation Patient seen and examined via telemedicine, with the assistance of the bedside RN > 25 min spent in evaluation and mgmt of patient Status: Chronic Plan as above Attestations Medical Necessity Statement*: mireille, diarrhea Time Spent in Patient Care: 16 - 35 minutes (>than 50% of time spent in counselling and/or direct pt care on unit). Coding Level of Care Code Acute Analytical Data Scientist for Chg Fwd Diagnoses Transplanted kidney Z94.0
[2021-09-23] MEDS: iron sucrose 200 MG in sodium chloride 0.9% (100 ml) 100 ML 220 MG IV (11:41)
--- NOTE | 2021-09-23 13:33 | P.PN_ITS ---
Subjective Subjective: Patient was seen and examined this morning, hematuria is clearing, robust urine output, serum creatinine is improving, hemoglobin this morning is stable at 8, hyperkalemia is improving serum potassium is 5.2. Diarrhea is improving Medications: Reviewed: Yes Medication Review Details: Current Medications Acetaminophen (Acetaminophen 325 Mg Tablet) 650 mg PO Q6H PRN PRN Reason: Mild/Mod Pain Or Temp >/= 101 Aspirin (Aspirin 81 Mg Ec Tablet) 81 mg PO DAILY@ [facility] Last Admin: 09/20/21 08:02 Dose: 81 mg Documented by: Atorvastatin Calcium (Atorvastatin 40 Mg Tablet) 20 mg PO BEDTIME [facility] Last Admin: 09/19/21 22:01 Dose: 20 mg Documented by: Calcium Carbonate (Calcium Carbonate 500 Mg Chew Tablet) 500 mg PO Q4H PRN PRN Reason: DYSPEPSI Carvedilol (Carvedilol 25 Mg Tablet) 12.5 mg PO BID@ [facility] Last Admin: 09/20/21 08:02 Dose: 12.5 mg Documented by: Cetirizine HCl (Cetirizine 10 Mg Tablet) 10 mg PO DAILY@ [facility] Last Admin: 09/20/21 08:01 Dose: 10 mg Documented by: Dextrose (Dextrose 50% Syringe 50 Ml) 25 ml IVP ONCE PRN; Protocol PRN Reason: hypoglycemia protocol Dextrose (Dextrose 50% Syringe 50 Ml) 50 ml IVP PRN PRN; Protocol PRN Reason: hypoglycemia protocol Ferrous Sulfate (Ferrous Sulfate Ec 325 Mg Tablet) 325 mg PO TIDWM [facility] Last Admin: 09/20/21 08:01 Dose: 325 mg Documented by: Glucagon (Glucagon 1 Mg/Ml Inj 1 Ml) 1 mg IM ONCE PRN; Protocol PRN Reason: Adult Acute Hypoglycemia Prot. Hydralazine HCl (Hydralazine 50 Mg Tablet) 50 mg PO TID PRN PRN Reason: sbp > 160 Sodium Chloride (Sodium Chloride 0.9%) 1,000 mls @ 75 mls/hr IV .[id number] [facility] Last Admin: 09/19/21 22:02 Dose: 75 mls/hr Documented by: Dextrose (D5w) 500 mls @ 100 mls/hr IV ONCE PRN; Protocol PRN Reason: Adult Acute Hypoglycemia Prot Non-Formulary Medication (Insulin Aspart U-100 [Novolog U-100 Insulin Aspart]) 0 unit SUBCUT .COMPLEX [facility] Ondansetron HCl (Ondansetron 2 Mg/Ml Sdv 2 Ml) 4 mg IVP Q8H PRN PRN Reason: vomiting, or N/V if npo Pantoprazole Sodium (Pantoprazole Dr 40 Mg Tablet) 40 mg PO DAILY [facility] Last Admin: 09/20/21 08:02 Dose: 40 mg Documented by: Prednisone (Prednisone 5 Mg Tablet) 5 mg PO DAILY@0900 [facility] Last Admin: 09/20/21 08:02 Dose: 5 mg Documented by: Sodium Bicarbonate (Sodium Bicarbonate 650 Mg Tablet) 1,300 mg PO TID@ [facility] Last Admin: 09/20/21 08:01 Dose: 1,300 mg Documented by: Sodium Hypochlorite (Sodium Hypochlorite 0.125% Btl 473 Ml) 1 applic TOPICAL DAILY [facility] Last Admin: 09/20/21 08:03 Dose: 1 applic Documented by: Tacrolimus (Tacrolimus 0.5 Mg Capsule) 1 mg PO BID@ [facility] Last Admin: 09/20/21 08:08 Dose: 1 mg Documented by: Tamsulosin HCl (Tamsulosin 0.4 Mg Capsule) 0.4 mg PO BEDTIME@2100 [facility] Last Admin: 09/19/21 22:01 Dose: 0.4 mg Documented by: Vitamin D (Cholecalciferol (Vitamin D3) 1,000 Unit Tablet) 3,000 unit PO DAILY [facility] Last Admin: 09/20/21 08:01 Dose: 3,000 unit Documented by: Vitals/I&O/Wt Last Vital Signs Temp 98.4 F 09/23/21 11:39 Pulse 81 09/23/21 11:39 Resp 17 09/23/21 11:39 BP 148/71 09/23/21 11:39 Pulse Ox 94 09/23/21 11:39 09/22/21 09/23/21 09/23/21 22:59 06:59 14:59 Intake Total 700 / 1290 240 / 240 Output Total 250 / 950 1600 / 2550 Balance 450 / 340 -1600 / -1260 240 / 240 Weight last 48 hrs Weight 85.411 kg Weight 86.183 kg Physical Exam Const: COMMON NORMALS: patient oriented x3 HENMT: COMMON NORMALS: normocephalic and atraumatic HEAD & SCALP: normocephalic and atraumatic Chest: CHEST: Yes Symmetrical chest wall rise Resp: COMMON NORMALS: normal respiratory effort, No retractions, No use of accessory muscles and clear to auscultation bilaterally EFFORT & INSPECTION: Yes symmetric chest movement AUSCULTATION: clear to auscultation bilaterally Cardio: COMMON NORMALS: regular rate, regular rhythm, S1 normal heart sound present, S2 normal heart sound present, No gallops present (Cardio), No murmurs present (Cardio), No rub (Cardio) and Peripheral pulses 2+ throughout RATE: r egular rate RHYTHM: regular rhythm HEART SOUNDS: S1 normal heart sound present and S2 normal heart sound present PERIPHERAL PULSES: Peripheral pulses 2+ throughout GI: COMMON NORMALS: Normal to inspection, nondistended, normoactive bowel sounds present, Soft to palpation, non-tender, No hepatosplenomegaly present and no masses AUSCULTATION: Yes normoactive bowel sounds PALPATION: Yes Soft to palpation and Yes No hepatosplenomegaly present RECTAL EXAM: Yes deferred Extremity: COMMON NORMALS: no clubbing, cyanosis or edema and no pedal edema Neuro: COMMON NORMALS: patient oriented x3 Urinary Catheter Management: Ledezma: Cath Placed During This Visit: yes Reason for Continuing Indwelling Catheter: Acute Urinary Retention or Obstruction Urinary Catheter Date of Insertion: 09/20/21 Urinary Catheter Time of Insertion: 23:31 Data : 09/23/21 06:15 09/23/21 06:15 A&P Assessment and plan (1) Acute on chronic kidney failure: Improving renal func. Cr 2.1 now. 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 Diabetes mellitus complication status: with circulatory complication Diabetes mellitus complication detail: with peripheral angiopathy without gangrene Qualified Code(s): E11.51 - Type 2 diabetes mellitus with diabetic peripheral angiopathy without gangrene; Z79.4 - assisted (current) use of insulin (6) Diabetic ulcer of foot associated with diabetes mellitus due to underlying condition, with fat layer exposed: no change Status: Chronic Qualifiers: Diabetic foot ulcer location: midfoot Laterality: right Qualified Code(s): E08.621 - Diabetes mellitus due to underlying condition with foot ulcer; L97.412 - Non-pressure chronic ulcer of right heel and midfoot with fat layer exposed (7) Urinary retention: Has Foleys cath Status: Chronic (8) Transplanted kidney: Status: Chronic (9) Dehydration: being corrected Status: Acute (10) Anemia: asymp Status: Acute Qualifiers: Anemia type: due to chronic kidney disease Chronic kidney disease stage: on chronic dialysis Qualified Code(s): N18.6 - End stage renal disease; D63.1 - Anemia in chronic kidney disease; Z99.2 - Dependence on renal dialysis (11) Paroxysmal atrial fibrillation: rate controlled Status: Chronic (12) Diarrhea: better Status: Acute Plan 76 year old male with PMH of 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 PVD w/ leg wounds and infection, IDDM,obesity, and htn.? Pt also recently had urinary retention, had f/u w/ - Dr. Leah Vaughn- he did self cath at home until a few days ago- when he said his PVR were low.? Came in with c/o wekaness, diarrhea, nausea, poor po intake, and SOB.? On Admission he was hypotensive, MIREILLE, hytperkalemia, and hyponatremia. #Assessment : MIREILLE ON CKD Stage 3 : Multifactorail Diuretic,diarrhea,medications, Baseline SCR : 1.5 Admission SCR : 3 Random Urine Na :160 and CR: , Monitor BMP Monitor I/O Charting Avoid Nephrt Has received I.V Hydration which has been stopped #Cadaveric renal tx in 2010 on tacrolimus, MMF, and prednisone Tacrolimus level: 4.8 ( 09/20) Follow repeat tacrolimus level #Anemia DALJIT ( Serum iron low as well as % Saturation , ferritin : 359 ( likely due to renal disease ) I.V Venofer, followed by EPO IU PRBC Monitor H&h # Hematuria :Likely 2/2 to supratherapeutic INR Folley in place No need for CBI For now Folley flush Continue urology f/u as outpatient Was doing self cath prior to admission. #Hyperkalemia : Routine management Monitor Serum K Tele #Hx A.Fib :H/R Well controlled Continue Carvedilol On DIgoxin ( Currently on hold ) On Warfarin( On Hold ) # Diarrhea : C.Diff :Negative #Urinary Retention : Ledezma In place #DM On Insulin Pump #Code Status :Full code Attestations Medical Necessity Statement*: Patient is still in hospital for management of MIREILLE, hematuria, anemia, hyperkalemia Time Spent in Patient Care: Greater than 35 minutes (>than 50% of time spent in counselling and/or direct pt care on unit) . 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 Scientist for [employer]ette Fenton Diagnoses Acute on chronic kidney failure N17.9; N18.9 Hyperkalemia E87.5 Digoxin toxicity T46.0X1A Encounter type: initial encounter Injury intent: accidental or unintentional Warfarin anticoagulation Z79.01 Diabetes E11.51; Z79.4 Diabetes mellitus type: type 2 Diabetes mellitus watermelon harvesting supervisor insulin use: with watermelon harvesting supervisor use Diabetes mellitus complication status: with circulatory complication Diabetes mellitus complication detail: with peripheral angiopathy without gangrene Diabetic ulcer of foot associated with diabetes mellitus due to underlying con dition, with fat layer exposed E08.621; L97.412 Diabetic foot ulcer location: midfoot Laterality: right Urinary retention R33.9 Transplanted kidney Z94.0 Dehydration E86.0 Anemia N18.6; D63.1; Z99.2 Anemia type: due to chronic kidney disease Chronic kidney disease stage: on chronic dialysis Paroxysmal atrial fibrillation I48.0 Diarrhea R19.7
[2021-09-23] MEDS: atorvastatin 40 mg Tablet 20 MG PO (20:42)
[2021-09-23] MEDS: tamsulosin 0.4 mg Capsule PO (20:42)
[2021-09-24] VITALS (19 sets, daily range): BP systolic 139–176; BP diastolic 40–84; PULSE 65–84; RESP 15–18; TEMP 36.5–37.2; O2SAT 94–98
[2021-09-24 04:48] LABS: Basophils % 0.4 %; Eosinophils % 0.8 %; Hematocrit 24.4 % (42.0-52.0); Hemoglobin 7.2 g/dL (11.7-16.6); Lymphocytes % 19.9 %; Mean Corpuscular HGB Conc 29.5 g/dL (30.0-36.0); Mean Corpuscular Hemoglobin 25.9 pg (28.0-34.0); Mean Corpuscular Volume 87.8 fl (80-94); Mean Platelet Volume 10.2 fL (7.4-10.4); Monocytes # 0.5 10^3/uL (0.2-0.9); Monocytes % 10.7 %; Neutrophils # 3.42 10^3/uL (1.8-7.7); Neutrophils % 67.4 %; Nucleated Red Blood Cells % 0.6 %; Platelet Count 185 10^3/cmm (130-400); Red Blood Count 2.78 10^6/uL (4.1-5.3); White Blood Count 5.1 10^3/uL (4.0-10.0)
[2021-09-24 05:05] LABS: Blood Urea Nitrogen 21 mg/dL (8-23); Calcium 9.5 mg/dL (8.5-10.5); Carbon Dioxide 20 mmol/L (22-29); Chloride 110 mmol/L (98-107); Glucose 190 mg/dL (65-115); Magnesium 1.4 mg/dL (1.7-2.3); Osmolality Calculated 294 mOsm/kg (285-295); Phosphorus 2.3 mg/dL (2.5-4.5); Sodium 138 mmol/L (136-145)
[2021-09-24 05:08] LABS: Digoxin 0.6 ng/mL (0.6-1.2)
--- NOTE | 2021-09-24 05:32 | PC.NURSE ---
SHIFT SUMMARY Has rested well without c/o or distress. stays with pt and monitors BS on Dexcom. Says BS does much better with continuous insulin pump going. Robert wet to dry dressing change done this am to wound right foot. Is dreading Ledezma removal today. Is afraid will have trouble again with voiding
--- NOTE | 2021-09-24 07:41 | PM.PN ---
Subjective Subjective: feels better. still w/ rt foot wound. no n/v/f/c/neil/d/sob. states hematuria cleared. still w/ a early Medications: Reviewed: Yes Medication Review Details: Current Medications Acetaminophen (Acetaminophen 325 Mg Tablet) 650 mg PO Q6H PRN PRN Reason: Mild/Mod Pain Or Temp >/= 101 Atorvastatin Calcium (Atorvastatin 40 Mg Tablet) 20 mg PO BEDTIME [facility] Last Admin: 09/23/21 20:42 Dose: 20 mg Documented by: Calcium Carbonate (Calcium Carbonate 500 Mg Chew Tablet) 500 mg PO Q4H PRN PRN Reason: DYSPEPSI Carvedilol (Carvedilol 25 Mg Tablet) 12.5 mg PO BID@ [facility] Last Admin: 09/23/21 20:41 Dose: 12.5 mg Documented by: Cetirizine HCl (Cetirizine 10 Mg Tablet) 10 mg PO DAILY@ [facility] Last Admin: 09/23/21 08:12 Dose: 10 mg Documented by: Dextrose (Dextrose 50% Syringe 50 Ml) 25 ml IVP ONCE PRN; Protocol PRN Reason: hypoglycemia protocol Dextrose (Dextrose 50% Syringe 50 Ml) 50 ml IVP PRN PRN; Protocol PRN Reason: hypoglycemia protocol Ferrous Sulfate (Ferrous Sulfate Ec 325 Mg Tablet) 325 mg PO TIDWM [facility] Last Admin: 09/23/21 20:40 Dose: Not Given Documented by: Fludrocortisone Acetate (Fludrocortisone 0.1 Mg Tablet) 0.1 mg PO DAILY [facility] Last Admin: 09/23/21 08:24 Dose: 0.1 mg Documented by: Glucagon (Glucagon 1 Mg/Ml Inj 1 Ml) 1 mg IM ONCE PRN; Protocol PRN Reason: Adult Acute Hypoglycemia Prot. Hydralazine HCl (Hydralazine 50 Mg Tablet) 50 mg PO TID PRN PRN Reason: sbp > 160 Dextrose (D5w) 500 mls @ 100 mls/hr IV ONCE PRN; Protocol PRN Reason: Adult Acute Hypoglycemia Prot Iron Sucrose 200 mg/ Sodium (Chloride) 110 mls @ 220 mls/hr IV Q24H [facility] Stop: 09/25/21 11:14 Last Admin: 09/23/21 11:41 Dose: 220 mls/hr Documented by: Mycophenolate Mofetil (Mycophenolate Mofetil 500 Mg Tablet) 500 mg PO BID [facility] Last Admin: 09/23/21 18:06 Dose: 500 mg Documented by: Non-Formulary Medication (Insulin Aspart U-100 [Novolog U-100 Insulin Aspart]) 0 unit SUBCUT .COMPLEX [facility] Ondansetron HCl (Ondansetron 2 Mg/Ml Sdv 2 Ml) 4 mg IVP Q8H PRN PRN Reason: vomiting, or N/V if npo Pantoprazole Sodium (Pantoprazole Dr 40 Mg Tablet) 40 mg PO DAILY [facility] Last Admin: 09/23/21 08:12 Dose: 40 mg Documented by: Prednisone (Prednisone 5 Mg Tablet) 5 mg PO DAILY@0900 [facility] Last Admin: 09/23/21 08:12 Dose: 5 mg Documented by: Sodium Bicarbonate (Sodium Bicarbonate 650 Mg Tablet) 1,300 mg PO TID@, [facility] Last Admin: 09/23/21 20:42 Dose: 1,300 mg Documented by: Sodium Hypochlorite (Sodium Hypochlorite 0.125% Btl 473 Ml) 1 applic TOPICAL DAILY [facility] Last Admin: 09/23/21 08:18 Dose: 1 applic Documented by: Tacrolimus (Tacrolimus 0.5 Mg Capsule) 1 mg PO BID@ [facility] Last Admin: 09/23/21 20:41 Dose: 1 mg Documented by: Tamsulosin HCl (Tamsulosin 0.4 Mg Capsule) 0.4 mg PO BEDTIME@2100 [facility] Last Admin: 09/23/21 20:42 Dose: 0.4 mg Documented by: Vitamin D (Cholecalciferol (Vitamin D3) 1,000 Unit Tablet) 3,000 unit PO DAILY [facility] Last Admin: 09/23/21 08:12 Dose: 3,000 unit Documented by: Vitals/I&O/Wt Last Vital Signs Temp 98.0 F 09/24/21 07:02 Pulse 75 09/24/21 07:02 Resp 18 09/24/21 07:02 BP 147/78 09/24/21 07:02 Pulse Ox 97 09/24/21 07:02 09/23/21 09/24/21 09/24/21 22:59 06:59 14:59 Intake Total 480 / 1080 240 / 1320 Output Total 1200 / 1200 850 / 2050 Balance -720 / -120 -610 / -730 Weight last 48 hrs Weight 84.731 kg Weight 85.411 kg Physical Exam Narrative: obese man in bed, NARD vs noted heent- nc/at, eomi, anicteric neck supple lungs clear heart irreg irreg abd soft, nt, nd, + bs + early- clear urine ext - chronic leg changes and skin thickening, rt foot wound wrapped neuro- a,a, o x 3 Urinary Catheter Management: Early: Cath Placed During This Visit: yes Reason for Continuing Indwelling Catheter: Acute Urinary Retention or Obstruction Urinary Catheter Date of Insertion: 09/20/21 Urinary Catheter Time of Insertion: 23: Data : 09/24/21 04:06 09/24/21 04:06 A&P Assessment and plan (1) Transplanted kidney: 1. Allograft Baseline creatinine 1.5-1.7 mg/dL. -?MIREILLE- Q med related- pt on 2 diuretics, lisinopril, dig, DM meds.? and not eating well. -u/a- alkalotic, trace gluc,5-110 wbc and 5-10 sq epi - ur na elevated at 169 -cr improving off of javid-i, diuretics, metformin, digoxin -Prograf levels look okay at 4.8 Dose medication for CKD stage 3 b Avoid usual nephrotoxic agents -uinary retention -per urology- would want to d/c early if possible soon 2. Immunosuppression Currently on tacrolimus 1 mg p.o. twice a day as well as prednisone 5 mg daily. CellCept 500mg po bid -inc dose prior to d/c to tid Prograf level 4.8, repeat trough pending 3. Chemistry Combination hyperkalemia, acidosis, likely secondary to acute kidney injury and Prograf -improved on Florinef, and sodium bicarbonate Low potassium diet -replace magnesium -monitor phos 4.anemia - venofer and epo -monitor hgb. consider prbc tx 5. htn-add norvasc 5 daily 6. Diabetic foot wound Management per general medicine, wound care etc. 7. a fib and bp controlled Thank you for consultation Patient seen and examined via telemedicine, with the assistance of the bedside RN > 25 min spent in evaluation and mgmt of patient Status: Chronic Plan as above Attestations Medical Necessity Statement*: per medicine. renal fxn back to baseline Time Spent in Patient Care: 16 - 35 minutes (>than 50% of time spent in counselling and/or direct pt care on unit). Coding Level of Care Code Acute Tank Charger for Chg Fwd Diagnoses Transplanted kidney Z94.0
[2021-09-24] MEDS: ferrous sulfate EC 325 mg Tablet PO ×3 (09:13→17:49)
[2021-09-24] MEDS: tacrolimus 0.5 mg Capsule 1 MG PO ×2 (09:14→21:20)
[2021-09-24] MEDS: carvedilol 25 mg Tablet 12.5 MG PO ×2 (09:14→21:20)
[2021-09-24] MEDS: sodium bicarbonate 650 mg Tablet 1300 MG PO ×3 (09:15→21:20)
[2021-09-24] MEDS: fludrocortisone 0.1 mg Tablet PO (09:15)
[2021-09-24] MEDS: pantoprazole DR 40 mg Tablet PO (09:15)
[2021-09-24] MEDS: predniSONE 5 mg Tablet PO (09:15)
[2021-09-24] MEDS: cholecalciferol (vitamin D3) 1,000 unit Tablet 3000 UNIT PO (09:15)
[2021-09-24] MEDS: cetirizine 10 mg Tablet PO (09:15)
[2021-09-24] MEDS: sodium hypochlorite 0.125% Btl 473 mL 1 APPLIC TOPICAL (09:16)
--- NOTE | 2021-09-24 10:22 | P.PN_ITS ---
Subjective Subjective: Patient was seen and examined this morning, renal function has continued to improve, urine has cleared, hyperkalemia has resolved Unfortunately his hemoglobin 7.2 today, plan is to transfuse him 2 units PRBC and monitor H&H. Medications: Reviewed: Yes Medication Review Details: Current Medications Acetaminophen (Acetaminophen 325 Mg Tablet) 650 mg PO Q6H PRN PRN Reason: Mild/Mod Pain Or Temp >/= 101 Atorvastatin Calcium (Atorvastatin 40 Mg Tablet) 20 mg PO BEDTIME [facility] Last Admin: 09/23/21 20:42 Dose: 20 mg Documented by: Calcium Carbonate (Calcium Carbonate 500 Mg Chew Tablet) 500 mg PO Q4H PRN PRN Reason: DYSPEPSI Carvedilol (Carvedilol 25 Mg Tablet) 12.5 mg PO BID@ [facility] Last Admin: 09/23/21 20:41 Dose: 12.5 mg Documented by: Cetirizine HCl (Cetirizine 10 Mg Tablet) 10 mg PO DAILY@ [facility] Last Admin: 09/23/21 08:12 Dose: 10 mg Documented by: Dextrose (Dextrose 50% Syringe 50 Ml) 25 ml IVP ONCE PRN; Protocol PRN Reason: hypoglycemia protocol Dextrose (Dextrose 50% Syringe 50 Ml) 50 ml IVP PRN PRN; Protocol PRN Reason: hypoglycemia protocol Ferrous Sulfate (Ferrous Sulfate Ec 325 Mg Tablet) 325 mg PO TIDWM [facility] Last Admin: 09/23/21 20:40 Dose: Not Given Documented by: Fludrocortisone Acetate (Fludrocortisone 0.1 Mg Tablet) 0.1 mg PO DAILY [facility] Last Admin: 09/23/21 08:24 Dose: 0.1 mg Documented by: Glucagon (Glucagon 1 Mg/Ml Inj 1 Ml) 1 mg IM ONCE PRN; Protocol PRN Reason: Adult Acute Hypoglycemia Prot. Hydralazine HCl (Hydralazine 50 Mg Tablet) 50 mg PO TID PRN PRN Reason: sbp > 160 Dextrose (D5w) 500 mls @ 100 mls/hr IV ONCE PRN; Protocol PRN Reason: Adult Acute Hypoglycemia Prot Iron Sucrose 200 mg/ Sodium (Chloride) 110 mls @ 220 mls/hr IV Q24H [facility] Stop: 09/25/21 11:14 Last Admin: 09/23/21 11:41 Dose: 220 mls/hr Documented by: Mycophenolate Mofetil (Mycophenolate Mofetil 500 Mg Tablet) 500 mg PO BID [facility] Last Admin: 09/23/21 18:06 Dose: 500 mg Documented by: Non-Formulary Medication (Insulin Aspart U-100 [Novolog U-100 Insulin Aspart]) 0 unit SUBCUT .COMPLEX [facility] Ondansetron HCl (Ondansetron 2 Mg/Ml Sdv 2 Ml) 4 mg IVP Q8H PRN PRN Reason: vomiting, or N/V if npo Pantoprazole Sodium (Pantoprazole Dr 40 Mg Tablet) 40 mg PO DAILY [facility] Last Admin: 09/23/21 08:12 Dose: 40 mg Documented by: Prednisone (Prednisone 5 Mg Tablet) 5 mg PO DAILY@0900 [facility] Last Admin: 09/23/21 08:12 Dose: 5 mg Documented by: Sodium Bicarbonate (Sodium Bicarbonate 650 Mg Tablet) 1,300 mg PO TID@, [facility] Last Admin: 09/23/21 20:42 Dose: 1,300 mg Documented by: Sodium Hypochlorite (Sodium Hypochlorite 0.125% Btl 473 Ml) 1 applic TOPICAL DAILY [facility] Last Admin: 09/23/21 08:18 Dose: 1 applic Documented by: Tacrolimus (Tacrolimus 0.5 Mg Capsule) 1 mg PO BID@ [facility] Last Admin: 09/23/21 20:41 Dose: 1 mg Documented by: Tamsulosin HCl (Tamsulosin 0.4 Mg Capsule) 0.4 mg PO BEDTIME@2100 [facility] Last Admin: 09/23/21 20:42 Dose: 0.4 mg Documented by: Vitamin D (Cholecalciferol (Vitamin D3) 1,000 Unit Tablet) 3,000 unit PO DAILY [facility] Last Admin: 09/23/21 08:12 Dose: 3,000 unit Documented by: Vitals/I&O/Wt Last Vital Signs Temp 98.0 F 09/24/21 07:02 Pulse 78 09/24/21 08:56 Resp 18 09/24/21 07:02 BP 147/78 09/24/21 07:02 Pulse Ox 95 09/24/21 08:56 09/23/21 09/24/21 09/24/21 22:59 06:59 14:59 Intake Total 480 / 1080 240 / 1320 480 / 480 Output Total 1200 / 1200 850 / 2050 Balance -720 / -120 -610 / -730 480 / 480 Weight last 48 hrs Weight 84.731 kg Weight 85.411 kg Physical Exam Const: COMMON NORMALS: patient oriented x3 HENMT: COMMON NORMALS: normocephalic and atraumatic HEAD & SCALP: normocephalic and atraumatic Chest: CHEST: Yes Symmetrical chest wall rise Resp: COMMON NORMALS: normal respiratory effort, No retractions, No use of accessory muscles and clear to auscultation bilaterally EFFORT & INSPECTION: Yes symmetric chest movement AUSCULTATION: clear to auscultation bilaterally Cardio: COMMON NORMALS: regular rate, regular rhythm, S1 normal heart sound present, S2 normal heart sound present, No gallops present (Cardio), No murmurs present (Cardio), No rub (Cardio) and Peripheral pulses 2+ throughout RATE: regular rate RHYTHM: regular rhythm HEART SOUNDS: S1 normal heart sound present and S2 normal heart sound present PERIPHERAL PULSES: Peripheral pulses 2+ throughout GI: COMMON NORMALS: Normal to inspection, nondistended, normoactive bowel sounds present, Soft to palpation, non-tender, No hepatosplenomegaly present and no masses AUSCULTATION: Yes normoactive bowel sounds PALPATION: Yes Soft to palpation and Yes No hepatosplenomegaly present RECTAL EXAM: Yes deferred Extremity: COMMON NORMALS: no clubbing, cyanosis or edema and no pedal edema Neuro: COMMON NORMALS: patient oriented x3 Urinary Catheter Management: Ledezma: Cath Placed During This Visit: yes Reason for Continuing Indwelling Catheter: Acute Urinary Retention or Obstruction Urinary Catheter Date of Insertion: 09/20/21 Urinary Catheter Time of Insertion: 23:31 Data : 09/24/21 04:06 09/24/21 04:06 A&P Assessment and plan (1) Acute on chronic kidney failure: Improving renal func. Cr 2.1 now. Due to dehydration from diarrhea, Bactrim, Status: Acute (2) Hyperkalemia: high but improving Status: Acute (3) Digoxin toxicity: better Status: Acute Qualifiers: Encounter type: initial encounter Injury intent: accidental or unintentional Qualified Code(s): T46.0X1A - Poisoning by cardiac-stimulant glycosides and drugs of similar action, accidental (unintentional), initial encounter (4) Warfarin anticoagulation: Toxicity improving Status: Chronic (5) Diabetes: stable On Insulin Pump Status: Chronic Qualifiers: Diabetes mellitus complication detail: with peripheral angiopathy without gangrene Diabetes mellitus complication status: with circulatory complication Diabetes mellitus terminal supervisor insulin use: with fci use Diabetes mellitus type: type 2 Qualified Code(s): E11.51 - Type 2 diabetes mellitus with diabetic peripheral angiopathy without gangrene; Z79.4 - terminal supervisor (current) use of insulin (6) Diabetic ulcer of foot associated with diabetes mellitus due to underlying condition, with fat layer exposed: no change Status: Chronic Qualifiers: Diabetic foot ulcer location: midfoot Laterality: right Qualified Code(s): E08.621 - Diabetes mellitus due to underlying condition with foot ulcer; L97.412 - Non-pressure chronic ulcer of right heel and midfoot with fat layer exposed (7) Urinary retention: Has Foleys cath Status: Chronic (8) Transplanted kidney: Status: Chronic (9) Dehydration: being corrected Status: Acute (10) Anemia: asymp Status: Acute Qualifiers: Anemia type: due to chronic kidney disease Chronic kidney disease stage: on chronic dialysis Qualified Code(s): N18.6 - End stage renal disease; D63.1 - Anemia in chronic kidney disease; Z99.2 - Dependence on renal dialysis (11) Paroxysmal atrial fibrillation: rate controlled Status: Chronic (12) Diarrhea: better Status: Acute Plan 76 year old male with PMH of 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 PVD w/ leg wounds and infection, IDDM,obesity, and htn.? Pt also recently had urinary retention, had f/u w/ - Dr. Leah Vaughn- he did self cath at home until a few days ago- when he said his PVR were low.? Came in with c/o wekaness, diarrhea, nausea, poor po intake, and SOB.? On Admission he was hypotensive, MIREILLE, hytperkalemia, and hyponatremia. #Assessment : MIREILLE ON CKD Stage 3 : Multifactorail Diuretic,diarrhea,medications, Baseline SCR : 1.5 Admission SCR : 3 Random Urine Na :160 and CR: , Monitor BMP Monitor I/O Charting Avoid Nephrt Has received I.V Hydration which has been stopped #Cadaveric renal tx in 2010 on tacrolimus, MMF, and prednisone Tacrolimus level: 4.8 ( 09/20) Follow repeat tacrolimus level #Anemia DALJIT ( Serum iron low as well as % Saturation , ferritin : 359 ( likely due to renal disease ) I.V Venofer, followed by EPO s/p 3U PRBC Monitor H&h #Hematuria :Likely 2/2 to supratherapeutic INR Folley in place No need for CBI For now Folley flush Continue urology f/u as outpatient Was doing self cath prior to admission. #Hyperkalemia : Routine management Monitor Serum K Tele #Hx A.Fib :H/R Well controlled Continue Carvedilol On DIgoxin ( Currently on hold ) On Warfarin( On Hold ) # Diarrhea : C.Diff :Negative #Urinary Retention : Ledezma In place #DM On Insulin Pump #Code Status :Full code Attestations Medical Necessity Statement*: Patient is in hospital for management of anemia, need for PRBC transfusion and for monitoring of hemoglobin. Time Spent in Patient Care: Greater than 35 minutes (>than 50% of time spent in counselling and/or direct pt care on unit) . Coding Level of Care Code Acute Intermediate Project Manager for g Fwd Exam Detailed Diagnoses Acute on chronic kidney failure N17.9; N18.9 Hyperkalemia E87.5 Digoxin toxicity T46.0X1A Encounter type: initial encounter Injury intent: accidental or unintentional Warfarin anticoagulation Z79.01 Diabetes E11.51; Z79.4 Diabetes mellitus complication detail: with peripheral angiopathy without gangrene Diabetes mellitus complication status: with circulatory complication Diabetes mellitus fci insulin use: with terminal supervisor use Diabetes mellitus type: type 2 Diabetic ulcer of foot associated with diabetes mellitus due to underlying con dition, with fat layer exposed E08.621; L97.412 Diabetic foot ulcer location: midfoot Laterality: right Urinary retention R33.9 Transplanted kidney Z94.0 Dehydration E86.0 Anemia N18.6; D63.1; Z99.2 Anemia type: due to chronic kidney disease Chronic kidney disease stage: on chronic dialysis Paroxysmal atrial fibrillation I48.0 Diarrhea R19.7
--- NOTE | 2021-09-24 10:37 | PC.SOCIAL ---
IM follow up explained to patient and . No questions asked and verbalized understanding.
[2021-09-24] MEDS: iron sucrose 200 MG in sodium chloride 0.9% (100 ml) 100 ML 220 MG IV (12:17)
[2021-09-24] MEDS: sodium chloride 0.9% (100 ml) 100 ML (14:25)
[2021-09-24] MEDS: epoetin alfa 1000 Unit/0.05 mL (ESRD) 8000 UNIT SUBCUT (16:28)
--- NOTE | 2021-09-24 18:08 | PC.NURSE ---
spoke with Dr. Salcedo about patient. He stated to give second unit this evening and do not do an H/H. He will see it on the CBC in am.
[2021-09-24] MEDS: atorvastatin 40 mg Tablet 20 MG PO (21:20)
[2021-09-24] MEDS: tamsulosin 0.4 mg Capsule PO (21:20)
[2021-09-24] MEDS: sodium chloride 0.9% (100 ml) 100 ML 130 ML (21:49)
[2021-09-25] VITALS (9 sets, daily range): BP systolic 141–183; BP diastolic 66–86; PULSE 73–96; RESP 16–18; TEMP 36.5–36.8; O2SAT 92–97
[2021-09-25 05:06] LABS: Basophils % 0.4 %; Eosinophils % 0.8 %; Hematocrit 31.1 % (42.0-52.0); Hemoglobin 9.4 g/dL (11.7-16.6); Lymphocytes # 0.9 10^3/uL (0.8-4.8); Mean Corpuscular HGB Conc 30.2 g/dL (30.0-36.0); Mean Corpuscular Hemoglobin 26.6 pg (28.0-34.0); Mean Corpuscular Volume 87.9 fl (80-94); Mean Platelet Volume 9.9 fL (7.4-10.4); Monocytes # 0.6 10^3/uL (0.2-0.9); Monocytes % 11.9 %; Neutrophils # 3.45 10^3/uL (1.8-7.7); Neutrophils % 68.1 %; Nucleated Red Blood Cells % 0.6 %; Platelet Count 171 10^3/cmm (130-400); Red Blood Count 3.54 10^6/uL (4.1-5.3); Red Cell Distribution Width 16.7 % (12.1-15.1); White Blood Count 5.1 10^3/uL (4.0-10.0)
[2021-09-25 05:20] LABS: INR 1.33 (0.8-1.2)
[2021-09-25 05:22] LABS: Anion Gap 12.7 (5-19); Blood Urea Nitrogen 19 mg/dL (8-23); Calcium 9.6 mg/dL (8.5-10.5); Carbon Dioxide 20 mmol/L (22-29); Chloride 108 mmol/L (98-107); Glucose 185 mg/dL (65-115); Magnesium 1.4 mg/dL (1.7-2.3); Osmolality Calculated 289 mOsm/kg (285-295); Phosphorus 1.9 mg/dL (2.5-4.5); Potassium 4.7 mmol/L (3.5-5.1); Sodium 136 mmol/L (136-145)
--- NOTE | 2021-09-25 07:51 | P.PN_ITS ---
Subjective Subjective: feels better. no n/v/f/c/neil/d. + rt leg pain Medications: Reviewed: Yes Medication Review Details: Current Medications Acetaminophen (Acetaminophen 325 Mg Tablet) 650 mg PO Q6H PRN PRN Reason: Mild/Mod Pain Or Temp >/= 101 Atorvastatin Calcium (Atorvastatin 40 Mg Tablet) 20 mg PO BEDTIME [facility] Last Admin: 09/24/21 21:20 Dose: 20 mg Documented by: Calcium Carbonate (Calcium Carbonate 500 Mg Chew Tablet) 500 mg PO Q4H PRN PRN Reason: DYSPEPSI Carvedilol (Carvedilol 25 Mg Tablet) 12.5 mg PO BID@ [facility] Last Admin: 09/24/21 21:20 Dose: 12.5 mg Documented by: Cetirizine HCl (Cetirizine 10 Mg Tablet) 10 mg PO DAILY@ [facility] Last Admin: 09/24/21 09:15 Dose: 10 mg Documented by: Dextrose (Dextrose 50% Syringe 50 Ml) 25 ml IVP ONCE PRN; Protocol PRN Reason: hypoglycemia protocol Dextrose (Dextrose 50% Syringe 50 Ml) 50 ml IVP PRN PRN; Protocol PRN Reason: hypoglycemia protocol Epoetin Flo (Epoetin Flo 1000 Unit/0.05 Ml (Esrd)) 8,000 unit SUBCUT QMWF [facility] Last Admin: 09/24/21 16:28 Dose: 8,000 unit Documented by: Ferrous Sulfate (Ferrous Sulfate Ec 325 Mg Tablet) 325 mg PO TIDWM [facility] Last Admin: 09/24/21 17:49 Dose: 325 mg Documented by: Fludrocortisone Acetate (Fludrocortisone 0.1 Mg Tablet) 0.1 mg PO DAILY [facility] Last Admin: 09/24/21 09:15 Dose: 0.1 mg Documented by: Glucagon (Glucagon 1 Mg/Ml Inj 1 Ml) 1 mg IM ONCE PRN; Protocol PRN Reason: Adult Acute Hypoglycemia Prot. Hydralazine HCl (Hydralazine 50 Mg Tablet) 50 mg PO TID PRN PRN Reason: sbp > 160 Dextrose (D5w) 500 mls @ 100 mls/hr IV ONCE PRN; Protocol PRN Reason: Adult Acute Hypoglycemia Prot Iron Sucrose 200 mg/ Sodium (Chloride) 110 mls @ 220 mls/hr IV Q24H [facility] Stop: 09/25/21 11:14 Last Infusion: 09/24/21 12:50 Dose: Infused Documented by: Mycophenolate Mofetil (Mycophenolate Mofetil 500 Mg Tablet) 500 mg PO BID [facility] Last Admin: 09/24/21 17:49 Dose: 500 mg Documented by: Non-Formulary Medication (Insulin Aspart U-100 [Novolog U-100 Insulin Aspart]) 0 unit SUBCUT .COMPLEX [facility] Ondansetron HCl (Ondansetron 2 Mg/Ml Sdv 2 Ml) 4 mg IVP Q8H PRN PRN Reason: vomiting, or N/V if npo Pantoprazole Sodium (Pantoprazole Dr 40 Mg Tablet) 40 mg PO DAILY [facility] Last Admin: 09/24/21 09:15 Dose: 40 mg Documented by: Prednisone (Prednisone 5 Mg Tablet) 5 mg PO DAILY@0900 [facility] Last Admin: 09/24/21 09:15 Dose: 5 mg Documented by: Sodium Bicarbonate (Sodium Bicarbonate 650 Mg Tablet) 1,300 mg PO TID@ [facility] Last Admin: 09/24/21 21:20 Dose: 1,300 mg Documented by: Sodium Hypochlorite (Sodium Hypochlorite 0.125% Btl 473 Ml) 1 applic TOPICAL DAILY [facility] Last Admin: 09/24/21 09:16 Dose: 1 applic Documented by: Tacrolimus (Tacrolimus 0.5 Mg Capsule) 1 mg PO BID@ [facility] Last Admin: 09/24/21 21:20 Dose: 1 mg Documented by: Tamsulosin HCl (Tamsulosin 0.4 Mg Capsule) 0.4 mg PO BEDTIME@2100 [facility] Last Admin: 09/24/21 21:20 Dose: 0.4 mg Documented by: Vitamin D (Cholecalciferol (Vitamin D3) 1,000 Unit Tablet) 3,000 unit PO DAILY [facility] Last Admin: 09/24/21 09:15 Dose: 3,000 unit Documented by: Vitals/I&O/Wt Last Vital Signs Temp 98.2 F 09/25/21 07:00 Pulse 73 09/25/21 07:00 Resp 18 09/25/21 07:00 BP 172/72 09/25/21 07:00 Pulse Ox 93 09/25/21 07:00 09/24/21 09/25/21 09/25/21 22:59 06:59 14:59 Intake Total 860 / 1690 450 / 2140 Output Total 1300 / 1300 400 / 1700 Balance -440 / 390 50 / 440 Weight last 48 hrs Weight 85.593 kg Weight 84.731 kg Physical Exam Narrative: obese man in bed, NARD vs noted heent- nc/at, eomi, anicteric neck supple lungs clear heart irreg irreg abd soft, nt, nd, + bs + early- clear urine ext - chronic leg changes and skin thickening, rt foot wound wrapped neuro- a,a, o x 3 Urinary Catheter Management: Early: Cath Placed During This Visit: yes, but has since been removed by the nurse Reason for Continuing Indwelling Catheter: Other Urinary Catheter Date of Insertion: 09/20/21 Urinary Catheter Time of Insertion: 23:31 Date Urinary Catheter Removed: 09/24/21 Time Urinary Catheter Discontinued: 19:00 Data : 09/25/21 04:41 09/25/21 04:41 A&P Assessment and plan (1) Transplanted kidney: 1. Allograft Baseline creatinine 1.5-1.7 mg/dL. -?MIREILLE- Q med related- pt on 2 diuretics, lisinopril, dig, DM meds.? and not eating well. -cr better than baseline -u/a- alkalotic, trace gluc,5-110 wbc and 5-10 sq epi - ur na elevated at 169 -cr improving off of javid-i, diuretics, metformin, digoxin -Prograf levels look okay at 4.4- monitor may need higher dose Dose medication for CKD stage 3 b Avoid usual nephrotoxic agents -uinary retention -per urology- would want to d/c early if okay w/ urology- pt was doing self cath at home 2. Immunosuppression Currently on tacrolimus 1 mg p.o. twice a day, prednisone 5 mg daily, CellCept 500mg po tid Prograf level 4.8, repeat trough pending 3. Chemistry Hyperkalemia improved- ahmet maldonado met acidosis - sodium bicarbonate Low potassium diet -replace magnesium and phos 4.anemia - venofer and epo -monitor hgb. s/p 2 u prbc tx 5. htn-coreg inc to 25 bid, dd norvasc 5 daily 6. Diabetic foot wound Management per general medicine, wound care etc. 7. a fib controlled Thank you for consultation renal can see PRN Patient seen and examined via telemedicine, with the assistance of the bedside RN > 25 min spent in evaluation and mgmt of patient Status: Chronic Plan as above Attestations Medical Necessity Statement*: DM foot infection Time Spent in Patient Care: 16 - 35 minutes (>than 50% of time spent in counselling and/or direct pt care on unit) . Coding Level of Care Code Acute Manager Equipment for Antionette Fenton Diagnoses Transplanted kidney Z94.0
[2021-09-25] MEDS: carvedilol 25 mg Tablet 12.5 MG PO (08:42)
[2021-09-25] MEDS: phosphorus 250 mg Tablet PO (08:43)
[2021-09-25] MEDS: sodium bicarbonate 650 mg Tablet 1300 MG PO ×2 (08:43→12:22)
[2021-09-25] MEDS: cholecalciferol (vitamin D3) 1,000 unit Tablet 3000 UNIT PO (08:44)
[2021-09-25] MEDS: cetirizine 10 mg Tablet PO (08:44)
[2021-09-25] MEDS: ferrous sulfate EC 325 mg Tablet PO ×2 (08:45→12:22)
[2021-09-25] MEDS: predniSONE 5 mg Tablet PO (08:45)
[2021-09-25] MEDS: pantoprazole DR 40 mg Tablet PO (08:51)
[2021-09-25] MEDS: sodium hypochlorite 0.125% Btl 473 mL 1 APPLIC TOPICAL (08:51)
[2021-09-25] MEDS: tacrolimus 0.5 mg Capsule 1 MG PO (08:52)
[2021-09-25] MEDS: iron sucrose 200 MG in sodium chloride 0.9% (100 ml) 100 ML 220 MG IV (10:34)
--- NOTE | 2021-09-25 14:29 | P.DS_ITS ---
Discharge Providers Date of Admission: 09/19/21 14:44 Date of Discharge: September 25, 2021 Attending Provider at Admission: Shannon Ashley MD Attending Provider at Discharge: Rudy Bennett MD Primary Care Provider: Harriet Rae -CORRECTIONAL MAINTENANCE TECHNICIAN Diagnoses at Discharge Discharge Diagnosis (1) Transplanted kidney: Status: Chronic Reason for Visit Reason for Visit: Amena vegae, DARÍO Hospital Course Hospital Course HPI: Shannon Ashley MD Jaya Kidd Sr is a 76 year old male with multiple medical problems who presented to the emergency room with chief complaint of not feeling well.? Symptoms have been going on for a week or 2.? He has become gradually but progressively weaker.? He has had increasing difficulty maintaining adequate oral intake.? He reports having diarrhea every time he eats shortly after oral intake.? He has had nausea but no vomiting.? Was having his usual bowel pattern of alternating formed and soft stools about a week and a half ago.? Denies chest pain but has had increasing difficulty breathing.? Dyspnea is not necessarily exertional or strictly supine in nature, can occur at rest in an upright position? He is a known diabetic and his blood sugars have been okay.? He is chronically on an insulin pump and has continuous glucose monitoring.? An isatu on his phone notifies both him and separately his if his blood sugars are out of range.? He denies any fevers.? He has not had upper respiratory symptoms such as runny nose or sore throat.? Denies headaches.? Has not really had a cough.? Denies any dysuria presently but did have significant urinary retention (1 L) at the beginning of this month which necessitated placement of Ledezma catheter.? He was seen at Dr. Mcintyre's office afterwards and instructed on intermittent self-catheterization until his postvoid residual remained low which happened a few days ago by report.? He is chronically immunosuppressed for renal transplant status, taking tacrolimus, mycophenolate and prednisone.? He follows with nephrology in [place].? He has been followed at wound care clinic here for nonhealing ulcer on his right foot.? He was prescribed Bactrim, based on wound culture sensitivities, on 09/05 and completed the course this past Friday.? The frequent diarrhea started about several days after antibiotics were initiated.? He has not had any falls or dizziness but his weakness has continued to worsen.? With his known past medical history as outlined below, and his became concerned and came in for evaluation.? In the ER, vital signs were unrevealing however work-up showed evidence of acute kidney injury with associated hyperkalemia, digoxin toxicity, elevated INR and other abnormalities as described.? With these findings he is being admitted for further evaluation and treatment.? Of note he had laboratory studies done on September 14 that were to be sent to his doctor in [place].? At that time BUN and creatinine were 42/3.3.? Todays value is 34/3.0.? Baseline creatinine of late ranges from 1.4- 1.7.? Hospital course: Was admitted for the management of MIREILLE on CKD hyperkalemia ,digoxin toxicity, supratherapeutic INR, Anemia, paroxysmal atrial fibrillation, hypertension, diarrhea. For his MIREILLE on CKD likely secondary to diuretics, lisinopril, these were kept on hold , he was continued on IV hydration, BMP was monitored, nephrotoxic's were avoided, intake output was charted, at the time of discharge, MIREILLE has resolved serum creatinine was at 1.3 baseline serum creatinine is around 1.5, received usual hyperkalemia management, serum potassium was normal at the time of discharge. For his digoxin toxicity , digoxin p.o.was held, during hospital stay, serum dig level was monitored, it has been resumed on discharge, for his anemia, he had received 3 units PRBC, H&H was was stable at the time of discharge. FOBT was positive, if H&H continues to drop in future, then patient will likely need EGD and endoscopy. Warfarin has been kept on hold for a week, current plan is to do repeat CBC in 1 week. Patient developed urinary retention during the hospital stay after which Ledezma catheter was placed, patient developed hematuria also during hospital stay, Ledezma flushes were done, no need for CBI At the time of discharge urine has completely cleared, voiding trial was successful, patient is being discharged home with instruction, to self cath if needed, prior to coming to the hospital he was intermittently doing self cath.Patient has plan to follow-up with urology as an outpatient. For his history of atrial fibrillation he has been continued on carvedilol and digoxin, currently warfarin has been kept on hold, for 1 week, patient will follow with repeat CBC in a week, if the hemoglobin stays stable Warfarin can be resumed. For his diabetes patient was continued on insulin pump, patient was also complaining of diarrhea during the hospital stay, stool C. difficile study was negative. For his history of Cadaveric renal tx in 2010: He has been continued on tacrolimus 1 mg p.o. twice daily, MMF 500 mg p.o. 3 times daily, prednisone 5 mg p.o. daily. Patient overall has responded well to above medical management and is being discharged in stable condition to home.He will continue to follow with his primary care physician as well as his photographer's model as outpatient. Physical Exam Const: COMMON NORMALS: patient oriented x3 HENMT: COMMON NORMALS: normocephalic and atraumatic HEAD & SCALP: normocephalic and atraumatic Chest: CHEST: Yes Symmetrical chest wall rise Resp: COMMON NORMALS: normal respiratory effort and clear to auscultation bilaterally EFFORT & INSPECTION: Yes symmetric chest movement AUSCULTATION: clear to auscultation bilaterally Cardio: OTHER: Irregularly irregular rhythm S1-S2 variable intensity GI: COMMON NORMALS: Normal to inspection, nondistended, normoactive bowel sounds present, Soft to palpation, non-tender, No hepatosplenomegaly present and no masses AUSCULTATION: Yes normoactive bowel sounds PALPATION: Yes Soft to palpation and Yes No hepatosplenomegaly present RECTAL EXAM: Yes deferred Extremity: COMMON NORMALS: no clubbing, cyanosis or edema and no pedal edema OTHER: 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 Neuro: COMMON NORMALS: patient oriented x3 Urinary Catheter Management: Ledezma: Cath Placed During This Visit: yes, but has since been removed by the nurse Reason for Continuing Indwelling Catheter: Other Urinary Catheter Date of Insertion: 09/20/21 Urinary Catheter Time of Insertion: 23:31 Date Urinary Catheter Removed: 09/24/21 Time Urinary Catheter Discontinued: 19:00 Discharge Data Studies Completed and Pending Completed Studies During Hospitalization Category Date Time Status XR chest 1V portable [id number] Urgent Exams 09/19/21 13:11 Completed CV renal transplant [id number] Urgent Ultrasound 09/19/21 15:03 Completed Pending at discharge Category Date Time Status Comprehensive Metabolic Panel AM LABS Lab 09/26/21 04:00 Ordered Comprehensive Metabolic Panel AM LABS Lab 09/27/21 04:00 Ordered Comprehensive Metabolic Panel AM LABS Lab 09/28/21 04:00 Ordered FK 506 (Tacrolimus) DAILY Lab 09/24/21 10:13 Received FK 506 (Tacrolimus) DAILY Lab 09/25/21 10:05 Received Magnesium AM LABS Lab 09/26/21 04:00 Ordered PT [Prothrombin Time INR] AM LABS Lab 09/26/21 04:00 Ordered Phosphorus AM LABS Lab 09/26/21 04:00 Ordered Radiology Impressions Chest X-Ray 09/19/21 13:11 IMPRESSION: 1. Residual mild interstitial infiltrate in the right lower lung zone when compared to prior study. 2. Cardiac enlargement. 3. Blunted right costophrenic angle which may represent small pleural effusion or pleural thickening. Renal Ultrasound 09/19/21 15:03 IMPRESSION: 1. Mild hydronephrosis of the transplant kidney with 186 cc postvoid residual of the bladder. 2. No significant resistive waveforms or elevated peak systolic velocities of the transplant renal artery and segmental/arcuate branches. Transplant renal vein is patent. Laboratory Results WBC 5.1 10^3/uL (4.0-10.0) 09/25/21 04:41 RBC 3.54 10^6/uL (4.1-5.3) L 09/25/21 04:41 Hgb 9.4 g/dL (11.7-16.6) L D 09/25/21 04:41 Hct 31.1 % (42.0-52.0) L 09/25/21 04:41 MCV 87.9 fl (80-94) 09/25/21 04:41 MCH 26.6 pg (28.0-34.0) L 09/25/21 04:41 MCHC 30.2 g/dL (30.0-36.0) 09/25/21 04:41 RDW 16.7 % (12.1-15.1) H 09/25/21 04:41 Plt Count 171 10^3/cmm (130-400) 09/25/21 04:41 MPV 9.9 fL (7.4-10.4) 09/25/21 04:41 Neut % (Auto) 68.1 % 09/25/21 04:41 Lymph % (Auto) 17.0 % 09/25/21 04:41 [place] % (Auto) 11.9 % 09/25/21 04:41 Eos % (Auto) 0.8 % 04/05/22 04:41 Baso % (Auto) 0.4 % 09/25/21 04:41 Neut # (Auto) 3.45 10^3/uL (1.8-7.7) 09/25/21 04:41 Lymph # (Auto) 0.9 10^3/uL (0.8-4.8) 09/25/21 04:41 [place] # (Auto) 0.6 10^3/uL (0.2-0.9) 09/25/21 04:41 Eos # (Auto) 0.0 10^3/uL (0.0-0.8) 09/25/21 04:41 Baso # (Auto) 0.0 10^3/uL (0.0-0.1) 09/25/21 04:41 Nucleated RBC % (auto) 0.6 % 09/25/21 04:41 Nucleated RBCs # 0.0 /100WBC 09/25/21 04:41 PT 16.90 SECONDS (12.1-14.9) H 09/25/21 04:41 INR 1.33 (0.8-1.2) H 09/25/21 04:41 Sodium 136 mmol/L (136-145) 09/25/21 04:41 Potassium 4.7 mmol/L (3.5-5.1) 09/25/21 04:41 Chloride 108 mmol/L (98-107) H 09/25/21 04:41 Carbon Dioxide 20 mmol/L (22-29) L 09/25/21 04:41 Anion Gap 12.7 (5-19) 09/25/21 04:41 BUN 19 mg/dL (8-23) 09/25/21 04:41 Creatinine 1.3 mg/dL (0.7-1.2) H 09/25/21 04:41 GFR Calculation Not Reportable 09/25/21 04:41 Glucose 185 mg/dL (65-115) H 09/25/21 04:41 POC Glucose 55 mg/dL (70-110) L 09/20/21 11:55 Calculated Osmolality 289 mOsm/kg (285-295) 09/25/21 04:41 Uric Acid 8.4 mg/dL (3.4-7.0) H 09/19/21 13:28 Calcium 9.6 mg/dL (8.5-10.5) 09/25/21 04:41 Phosphorus 1.9 mg/dL (2.5-4.5) L 09/25/21 04:41 Magnesium 1.4 mg/dL (1.7-2.3) L 09/25/21 04:41 Iron 18 ug/dL (59-158) L 09/19/21 13:28 TIBC 172 mcg/dl 09/19/21 13:28 % Saturation 10.4 % (20-50) L 09/19/21 13:28 Unsat Iron Binding 154 ug/dL (112-347) 09/19/21 13:28 Ferritin 359 ng/mL (30-400) 09/20/21 04:29 Total Bilirubin 0.5 mg/dL (0.15-1.2) 09/22/21 02:30 AST 14 U/L (0-40) 09/22/21 02:30 ALT 9 U/L (0-41) 09/22/21 02:30 Alkaline Phosphatase 100 IU/L (40-130) 09/22/21 02:30 Creatine Kinase 60 U/L (39-308) 09/20/21 04:29 Troponin T Baseline 101 ng/L (0-15) H* 09/19/21 13:28 Troponin T 120 Minute 90.61 ng/L (0-15) H 09/19/21 15:45 Delta Troponin T -10.39 ABS# (0-10) L 09/19/21 15:45 Troponin T Hi Sens 6Hr 108.7 ng/L (0-15) H 09/19/21 20:10 Troponin T Hi Sens 6Hr Delta 7.7 ng/L (0-12) 09/19/21 20:10 C-Reactive Protein 55.3 mg/L (0.0-4.9) H 09/20/21 04:29 Total Protein 5.5 g/dL (6.6-8.7) L 09/22/21 02:30 Albumin 3.0 g/dL (3.5-5.2) L 09/22/21 02:30 Globulin 2.5 g/dL (1.3-4.6) 09/22/21 02:30 25-OH Vitamin D Total 43 ng/mL (30-100) 09/20/21 04:29 Procalcitonin 0.43 ng/mL (0-0.5) 09/19/21 13:28 TSH 9.05 uIU/mL (0.27-4.20) H 09/20/21 04:29 PTH Intact 167.8 pg/mL (15-65) H 09/20/21 04:29 Calcium (PTH Intact) 9.5 mg/dL (8.5-10.5) 09/20/21 04:29 Urine Color Yellow (Yellow) 09/19/21 13:55 Urine Appearance Clear (CLEAR) 09/19/21 13:55 Urine pH 9 (5-7) H 09/19/21 13:55 Ur Specific [place] 1.015 (1.005-1.030) 09/19/21 13:55 Urine Protein Neg (Negative) 09/19/21 13:55 Urine Glucose (UA) Trace (Normal) H 09/19/21 13:55 Urine Ketones Negative (Negative) 09/19/21 13:55 Urine Blood Neg (Negative) 09/19/21 13:55 Urine Nitrate Negative (Negative) 09/19/21 13:55 Urine Bilirubin Neg (Negative) 09/19/21 13:55 Prot Sulfosalicylic Acd Negative (Negative) 09/19/21 13:55 Urine Urobilinogen 4 mg/dL (Negative) H 09/19/21 13:55 Ur Leukocyte Esterase Negative (Negative) 09/19/21 13:55 Urine RBC None /hpf (0-2) 09/19/21 13:55 Urine WBC 5-10 /hpf (0-5) H 09/19/21 13:55 Ur Squamous Epith Cells 5-10 /hpf (0-5) H 09/19/21 13:55 Amorphous Sediment Not Reportable 09/19/21 13:55 Urine Bacteria Trace /hpf (NONE) 09/19/21 13:55 Ur Random Sodium 169 mmol/L 09/19/21 13:55 Ur Random Potassium 16 mmol/L 09/19/21 13:55 Ur Random Chloride 93 mmol/L 09/19/21 13:55 Digoxin 0.6 ng/mL (0.6-1.2) 09/24/21 04:06 Tacrolimus (FK 506) 4.4 mcg/L L 09/21/21 10:02 Coronavirus 229E (PCR) Not detected (NOT DETECT) 09/19/21 13:36 Hep Bs Antigen Non-reactive (Nonreactive) 09/20/21 04:29 Hep Bs Antibody 51.9 (11.5-1000) 09/20/21 04:29 Hepatitis C Antibody Non-reactive (Nonreactive) 09/20/21 04:29 SARS-CoV-2 (PCR) Not detected (NOT DETECT) 09/19/21 13:36 Blood Type B Positive 09/22/21 10:38 Rho(D) Type Positive 09/22/21 10:38 Antibody Screen Negative 09/22/21 10:38 Crossmatch See Detail 09/22/21 10:38 Vitals Last Vital Signs Temp 98.0 F 09/25/21 11:18 Pulse 96 09/25/21 11:18 Resp 18 09/25/21 11:18 BP 168/66 09/25/21 11:18 Pulse Ox 92 09/25/21 11:18 Discharge Plan Discharge Patient Disposition: Home Condition: Stable Prescriptions: New ferrous sulfate 325 mg (65 mg iron) tablet 325 mg PO DAILY Qty: 30 3RF Continued atorvastatin [Lipitor] 20 mg tablet 20 mg PO BEDTIME@2100 Qty: 90 1RF prednisone 5 mg tablet 5 mg PO DAILY@0900 0RF cholecalciferol (vitamin D3) 3,000 unit tablet 3,000 unit PO DAILY@0900 0RF cetirizine [All Day Allergy (cetirizine)] 10 mg tablet 10 mg PO DAILY@09 0RF aspirin [Adult Low Dose Aspirin] 81 mg tablet,delayed release (DR/EC) 81 mg PO DAILY@09 0RF famotidine 20 mg tablet 20 mg PO DAILY@09 0RF furosemide 20 mg tablet 20 mg PO DAILY PRN (Reason: Edema) 0RF Dakin's Solution 0.125 % solution 1 applic topical DAILY Qty: 473 2RF insulin aspart U-100 [Novolog U-100 Insulin aspart] 100 unit/mL solution See Rx Instructions .ROUTE .COMPLEX Qty: 10 6RF Rx Instructions: basal-midnight to 7 am-.800 units per hour basal-07:00 to 13:00-1.00 units per hour basal-13:00 to 19:00-1.20 units per hour basal-19:00 to 00:00-1.20 units per hour meal bolus-1 unit per 8 carbs amlodipine 5 mg tablet 10 mg PO DAILY@0900 Qty: 180 2RF sodium bicarbonate 650 mg tablet 1,300 mg PO TID@,, 0RF tamsulosin 0.4 mg capsule 0.4 mg PO BEDTIME@2100 0RF digoxin 125 mcg (0.125 mg) tablet 125 mcg PO DAILY@0900 0RF Hold Instructions: Resume on 08/22/21. tacrolimus 1 mg capsule 1 mg PO BID@, 0RF carvedilol 25 mg tablet 25 mg PO BID@ 0RF Rx Instructions: Check heartrate prior to taking, if 60 or below only take 12.5mg (1/2 tablet) hydralazine 100 mg tablet 100 mg PO TID@,, 0RF hydrochlorothiazide 12.5 mg tablet 25 mg PO DAILY@09 0RF Changed mycophenolate mofetil 250 mg capsule 500 mg PO TID Qty: 0 0RF Held warfarin 5 mg tablet See Rx Instructions .ROUTE .COMPLEX Qty: 90 3RF Hold Instructions: Resume on 10/02/21. Rx Instructions: SUN 2.5MG - MON 5MG - TUES 7.5MG - WED NONE - THURS NONE - FRI 2.5MG - SAT 5MG lisinopril 40 mg tablet 40 mg PO DAILY@09 0RF Hold Instructions: Resume on 10/02/21. Discharge Orders: Discharge Order (Routine); Ordered 09/25/21 Ordered By: Rudy Bennett Other Ambulatory Orders: Complete Blood Count w/Auto (Routine) Timeframe: 1 Week Location: Determined by Patient Ordered By: Rudy Bennett Physical Therapy Eval and Treat Outpatient (Order) Timeframe: 2 Weeks Facility: [facility] - Location: Physical Therapy Ordered By: Kristin Bhat Referrals: Physical Therapy - [facility] [Provider Group] (Please follow up with outpatient therapy once you return home.) Harriet Rae BC-CORRECTIONAL MAINTENANCE TECHNICIAN [Primary Care Provider] - 10/02/21 8:15 am Discharge Activity: Resume usual activity Patient Instructions: Type 2 Diabetes, Acute Kidney Injury (DC), Acute Wound Care (GEN), Opioid Safety Discharge Attestations Time Spent in Discharge Care*: greater than 30 min Specific Discharge Activities: educating patient, educating and/or supporting family/caregiver, discussing with pcp/other providers, discussing with patient case manager/social workers/dc planners, documenting/other paperwork and evaluating patient/reviewing data Quality Metrics Clinical Quality Measures [ No reported AMI, CVA or VTE this stay] Coding Level of Care Code Acute Chg FW DC note Exam Detailed Diagnoses Transplanted kidney Z94.0
== END 2021-09-25 16:53 | disposition home or self-care (01) | DRG 683 ==
LOC: ER 14:44 → MEDSURG 19:57
PROVIDERS: Internal Medicine; Internal Medicine Nephrology; Admitting Provider Hospitalist; Emergency Provider Emergency Medicine; PCP Nurse Practitioner; Visit Provider Internal Medicine
DX: N17.0 Acute kidney failure with tubular necrosis (principal); I13.0 Hypertensive heart and chronic kidney disease with heart failure and stage 1 through stage 4 chronic kidney disease, or unspecified chronic kidney disease; Z94.0 Kidney transplant status; L97.412 Non-pressure chronic ulcer of right heel and midfoot with fat layer exposed; E87.2 Acidosis; E87.1 Hypo-osmolality and hyponatremia; N13.8 Other obstructive and reflux uropathy; D84.821 Immunodeficiency due to drugs; T46.0X5A Adverse effect of cardiac-stimulant glycosides and drugs of similar action, initial encounter; T36.8X5A Adverse effect of other systemic antibiotics, initial encounter; E11.22 Type 2 diabetes mellitus with diabetic chronic kidney disease; N18.30 Chronic kidney disease, stage 3 unspecified; I50.9 Heart failure, unspecified; Z96.41 Presence of insulin pump (external) (internal); I48.0 Paroxysmal atrial fibrillation; E78.5 Hyperlipidemia, unspecified; E11.621 Type 2 diabetes mellitus with foot ulcer; E11.51 Type 2 diabetes mellitus with diabetic peripheral angiopathy without gangrene; Z98.62 Peripheral vascular angioplasty status; I25.10 Atherosclerotic heart disease of native coronary artery without angina pectoris; Z95.1 Presence of aortocoronary bypass graft; Z98.1 Arthrodesis status; Z89.512 Acquired absence of left leg below knee; Z87.891 Personal history of nicotine dependence; D63.1 Anemia in chronic kidney disease; I95.9 Hypotension, unspecified; Z79.82 Long term (current) use of aspirin; Z79.52 Long term (current) use of systemic steroids; E66.9 Obesity, unspecified; Z68.27 Body mass index [BMI] 27.0-27.9, adult; Z86.16 Personal history of COVID-19; R19.7 Diarrhea, unspecified; N40.1 Benign prostatic hyperplasia with lower urinary tract symptoms; R33.8 Other retention of urine; E86.0 Dehydration; E87.5 Hyperkalemia
CPT/HCPCS: 36415; 36416; 36430; 51702; 71045; 76776; 80048; 80053; 80162; 80197; 81001; 82274; 82306; 82310; 82436; 82550; 82728; 82962; 83540; 83550; 83630; 83735; 83970; 84100; 84132; 84133; 84145; 84300; 84443; 84484; 84550; 85014; 85018; 85025; 85610; 86140; 86706; 86803; 86850; 86900; 86920; 87340; 87493; 87635; 93005; 96365; 96372; 96375; 97161; 97530; 99285; J0610; J1756; J1815; J3430; J3475; J7030; J7507; J7512; J7517; P9016; Q3014; Q4081

== ENCOUNTER → 2021-09-27 09:08 | Outpatient (BNVA) | payer MEDICARE, OTHER, SELFPAY | PROVIDERS: PCP Nurse Practitioner; Visit Provider Nurse Practitioner Family | DX: E11.621 Type 2 diabetes mellitus with foot ulcer (principal); L97.512 Non-pressure chronic ulcer of other part of right foot with fat layer exposed; Z87.891 Personal history of nicotine dependence | CPT/HCPCS: 11042 ==

== ENCOUNTER → 2021-10-03 10:44 | Outpatient (BNVA) | payer MEDICARE, OTHER, SELFPAY | PROVIDERS: PCP Nurse Practitioner; Visit Provider Internal Medicine Nephrology | DX: Z94.0 Kidney transplant status (principal); Z79.899 Other long term (current) drug therapy; N39.0 Urinary tract infection, site not specified | CPT/HCPCS: 80053; 80197; 81003; 82310; 82570; 83735; 83970; 84156; 84550; 85025; 87077; 87086; 87184 ==

== ENCOUNTER → 2021-10-05 09:34 | Outpatient (BNVA) | payer MEDICARE, OTHER, SELFPAY | PROVIDERS: PCP Nurse Practitioner; Visit Provider Emergency Medicine | DX: E11.621 Type 2 diabetes mellitus with foot ulcer (principal); I96 Gangrene, not elsewhere classified; L97.512 Non-pressure chronic ulcer of other part of right foot with fat layer exposed; Z87.891 Personal history of nicotine dependence | CPT/HCPCS: 11042 ==

== ENCOUNTER → 2021-10-08 09:35 | Outpatient (BNVA) | payer MEDICARE, OTHER, SELFPAY | PROVIDERS: PCP Family Medicine; Visit Provider Anesthesiology Pain Medicine | DX: M47.816 Spondylosis without myelopathy or radiculopathy, lumbar region (principal); M54.2 Cervicalgia; Z87.891 Personal history of nicotine dependence; Z79.891 Long term (current) use of opiate analgesic | CPT/HCPCS: 81003; 87077; 87086; 87184; 99213 ==

== ENCOUNTER 2021-10-11 09:12 | Outpatient (CLI) | payer MEDICARE, OTHER, SELFPAY ==
--- NOTE | 2021-10-11 09:22 | NM_ITS ---
WS: [id number] THREE-PHASE BONE SCAN HISTORY: DIABETIC FOOT ULCER/PAIN IN RIGHT FOOT COMPARISON: RIGHT foot radiograph 08/24/2021 Patient is is injected with 25.4 mCi Tc99m HDP intravenously. Immediate angiographic phase imaging is performed over the area of concern. Static blood pool imaging also performed. Two-hour whole-body sc intigrams performed in anterior and posterior projections. Additional large field of view imaging sub mitted as necessary. 3 phase imaging is centered over the RIGHT foot. There is an ulceration along the plantar surface of the foot. The arterial and blood pool phase images are normal. No evidence for cellulitis or increased vascular ity. There is a focal area of increased uptake involving the proximal RIGHT fifth metatarsal on the d elayed imaging. This may represent a healing fracture or trabecular injury. 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 Mild degenerative changes at t he elbows and shoulder joints. There is mild increased uptake noted over long LEFT ilium which corres ponds to the transplanted kidney. Very minimal outline is noted of the [place] kidneys. [place] kidneys are noted to be markedly atrophic. NM/NM bone 3 phase [id number] IMPRESSION: 1. No evidence for cellulitis or osteomyelitis involving the RIGHT foot. 2. There is a focal area of increased uptake involving the proximal fifth meta tarsal seen only on the delayed imaging suggesting trabecular injury or healing fracture. 3. Transplanted kidney noted over the LEFT ilium.
== END 2021-10-11 09:13 | disposition home or self-care (01) ==
LOC: RAD 09:15
PROVIDERS: PCP Family Medicine; Visit Provider Surgery
DX: E11.621 Type 2 diabetes mellitus with foot ulcer (principal); M79.671 Pain in right foot; Z94.0 Kidney transplant status
CPT/HCPCS: 78315; A9561

== ENCOUNTER → 2021-10-12 08:48 | Outpatient (BNVA) | payer MEDICARE, OTHER, SELFPAY | PROVIDERS: PCP Family Medicine; Visit Provider Surgery | DX: E11.621 Type 2 diabetes mellitus with foot ulcer (principal); L97.522 Non-pressure chronic ulcer of other part of left foot with fat layer exposed; I96 Gangrene, not elsewhere classified; Z87.891 Personal history of nicotine dependence | CPT/HCPCS: 11043 ==

== ENCOUNTER → 2021-10-17 09:59 | Outpatient (BNVA) | payer MEDICARE, OTHER, SELFPAY | PROVIDERS: PCP Family Medicine; Visit Provider Registered Nurse | DX: N18.6 End stage renal disease (principal) | CPT/HCPCS: 80053; 80197; 81003; 82310; 82575; 83970; 85025; 87077; 87086; 87184 ==

== ENCOUNTER → 2021-10-19 08:53 | Outpatient (BNVA) | payer MEDICARE, OTHER, SELFPAY | PROVIDERS: PCP Family Medicine; Visit Provider Nurse Practitioner Family | DX: E11.621 Type 2 diabetes mellitus with foot ulcer (principal); L97.522 Non-pressure chronic ulcer of other part of left foot with fat layer exposed; I96 Gangrene, not elsewhere classified; Z87.891 Personal history of nicotine dependence | CPT/HCPCS: 11042 ==

== ENCOUNTER 2021-10-24 10:40 | Outpatient (CLI) | payer MEDICARE, OTHER, SELFPAY ==
--- NOTE | 2021-10-24 10:49 | US_ITS ---
WS: [id number] RENAL ULTRASOUND URINARY BLADDER ULTRASOUND HISTORY: KIDNEY TRANS/BLADDER OUTLET OBSTRUCTION, RENAL INSUFFICIENCY COMPARISON: 09/19/2021 TECHNIQUE: 2-D and color Doppler imaging of the kidney submitted. Right kidney: 9.2 cm x 3.7 cm x 4.6 cm. Small echogenic kidney. Severe chronic medical renal disease. Left kidney: 10.2 cm x 4.3 cm x 4.7 cm. Small echogenic kidney. Severe chronic medical renal disease. Transplanted kidney is noted in the LEFT pelvis. There is no significant residual hydronephrosis. Sma ll amount of hydronephrosis was evident on the prior study. There is just minimal splitting of the re nal pelvis. No adjacent edema. The kidney is normal size at 9.8 cm. Small cortical cyst measures 1.0 cm at its maximum. Aorta: Not visualized. Urinary Bladder: Marked distention of the urinary bladder. Mild diffuse wall thickening. May be due t o a neurogenic bladder. Prostate gland is also markedly enlarged and lobulated and heterogeneous encr oaching into the bladder. Prostate measures 4.0 x 4.0 x 4.6 cm. US/US renal BI with PV bladder IMPRESSION: 1. No significant residual hydronephrosis in the transplanted kidney. Minimal splitting of the renal pelvis. 2. Marked prostate gland enlargement and heterogeneity. 3. Severe bilateral chronic medical renal disease of the [place] kidneys.
== END 2021-10-24 10:41 | disposition home or self-care (01) ==
LOC: RAD 10:44
PROVIDERS: PCP Family Medicine; Visit Provider Registered Nurse
DX: Z94.0 Kidney transplant status (principal); N40.0 Benign prostatic hyperplasia without lower urinary tract symptoms; N32.0 Bladder-neck obstruction; N28.9 Disorder of kidney and ureter, unspecified; E11.9 Type 2 diabetes mellitus without complications
CPT/HCPCS: 11042; 76770; 76857; 82951; 84681

== ENCOUNTER → 2021-10-26 08:56 | Outpatient (BNVA) | payer MEDICARE, OTHER, SELFPAY | PROVIDERS: PCP Family Medicine; Visit Provider Surgery | DX: E11.621 Type 2 diabetes mellitus with foot ulcer (principal); L97.812 Non-pressure chronic ulcer of other part of right lower leg with fat layer exposed; I96 Gangrene, not elsewhere classified; Z87.891 Personal history of nicotine dependence; E11.9 Type 2 diabetes mellitus without complications | CPT/HCPCS: 11043; 87070; 87077; 87176; 87186; 87205 ==

== ENCOUNTER 2022-01-09 16:14 | Outpatient (CLI) | payer MEDICARE, OTHER, SELFPAY | END 2022-01-09 16:15 | disposition home or self-care (01) | LOC: LAB 16:17 | PROVIDERS: PCP Family Medicine; Visit Provider Registered Nurse | DX: N39.0 Urinary tract infection, site not specified (principal) | CPT/HCPCS: 87086 ==

== ENCOUNTER 2022-02-01 14:56 | Outpatient (CLI) | payer MEDICARE, OTHER, SELFPAY ==
[2022-02-01 16:07] LABS: Protein Urine 1+ (Negative); Urine Appearance Hazy (CLEAR); Urine Color Yellow (Yellow); pH Urine 6.5 (5-7)
[2022-02-01 16:08] LABS: Add Urine Culture? Yes; Add Urine Microscopic? YES; Bacteria Urine TRACE /hpf; Bilirubin Urine Neg (Negative); Blood Urine 3+ (Negative); Glucose Urine UA Norm (Normal); Ketones Urine Negative (Negative); Leukocyte Esterase Urine 2+ (Negative); Nitrate Urine Negative (Negative); Squamous Epithelial Cell Urine 0-4 /hpf (0-5); Urobilinogen Urine Norm (Negative); WBC Urine TOO NUMEROUS TO CNT /hpf (0-5)
== END 2022-02-01 14:57 | disposition home or self-care (01) ==
LOC: LAB 14:58
PROVIDERS: PCP Family Medicine; Visit Provider Family Medicine
DX: I12.9 Hypertensive chronic kidney disease with stage 1 through stage 4 chronic kidney disease, or unspecified chronic kidney disease (principal); R32 Unspecified urinary incontinence
CPT/HCPCS: 81001

== ENCOUNTER → 2022-02-12 15:49 | Outpatient (BNVA) | payer MEDICARE, OTHER, SELFPAY | PROVIDERS: PCP Family Medicine; Visit Provider Urology | DX: N39.0 Urinary tract infection, site not specified (principal); R33.9 Retention of urine, unspecified; N18.6 End stage renal disease; N20.9 Urinary calculus, unspecified | CPT/HCPCS: 81003; 87077; 87086; 87186; 99213 ==

== ENCOUNTER → 2022-04-05 10:04 | Outpatient (BNVA) | payer MEDICARE, OTHER, SELFPAY | PROVIDERS: PCP Family Medicine; Visit Provider Family Medicine | DX: E11.65 Type 2 diabetes mellitus with hyperglycemia (principal); I47.1 Supraventricular tachycardia; E78.00 Pure hypercholesterolemia, unspecified | CPT/HCPCS: 80048; 83036; 83721; 84443 ==

== ENCOUNTER → 2022-04-08 10:01 | Outpatient (BNVA) | payer MEDICARE, OTHER, SELFPAY | PROVIDERS: PCP Family Medicine; Visit Provider Anesthesiology Pain Medicine | DX: M47.816 Spondylosis without myelopathy or radiculopathy, lumbar region (principal); M54.2 Cervicalgia; Z87.891 Personal history of nicotine dependence | CPT/HCPCS: 99213; 99214 ==

== ENCOUNTER → 2022-05-09 14:31 | Outpatient (BNVA) | payer MEDICARE, OTHER, SELFPAY | PROVIDERS: PCP Family Medicine; Visit Provider Family Medicine | DX: N39.0 Urinary tract infection, site not specified (principal) | CPT/HCPCS: 81000 ==

== ENCOUNTER → 2022-07-04 10:38 | Outpatient (BNVA) | payer MEDICARE, OTHER, SELFPAY | PROVIDERS: PCP Family Medicine; Visit Provider Family Medicine | DX: N18.32 Chronic kidney disease, stage 3b (principal); D63.1 Anemia in chronic kidney disease; E11.65 Type 2 diabetes mellitus with hyperglycemia | CPT/HCPCS: 80048; 80053; 80197; 81000; 82043; 82310; 83036; 83970; 85025 ==

== ENCOUNTER → 2022-07-26 09:38 | Outpatient (BNVA) | payer MEDICARE, OTHER, SELFPAY | PROVIDERS: PCP Family Medicine; Visit Provider Family Medicine | DX: Z94.0 Kidney transplant status (principal) | CPT/HCPCS: 80069; 80197; 82570; 84156 ==

== ENCOUNTER → 2022-08-06 08:06 | Outpatient (BNVA) | payer MEDICARE, OTHER, SELFPAY | PROVIDERS: PCP Family Medicine; Visit Provider Family Medicine | DX: N18.32 Chronic kidney disease, stage 3b (principal); D63.1 Anemia in chronic kidney disease | CPT/HCPCS: 80053; 80197; 81000; 82043; 82310; 83970; 85025 ==

== ENCOUNTER 2022-08-06 11:09 | Outpatient (RCR) | payer MEDICARE, OTHER, SELFPAY | END 2022-08-20 23:59 | disposition home or self-care (01) | LOC: SPT 11:09 | PROVIDERS: PCP Family Medicine; Visit Provider Family Medicine | DX: S88.119D Complete traumatic amputation at level between knee and ankle, unspecified lower leg, subsequent encounter (principal); X58.XXXD Exposure to other specified factors, subsequent encounter | CPT/HCPCS: 97110; 97112; 97116; 97162 ==

== ENCOUNTER → 2022-08-20 10:28 | Outpatient (BNVA) | payer MEDICARE, OTHER, SELFPAY | PROVIDERS: PCP Family Medicine; Visit Provider Urology | DX: R33.9 Retention of urine, unspecified (principal); N39.0 Urinary tract infection, site not specified | CPT/HCPCS: 51798; 81003; 87077; 87086; 87186; 99213 ==

== ENCOUNTER 2022-08-21 06:00 | Outpatient (RCR) | payer MEDICARE, OTHER, SELFPAY | END 2022-09-20 23:59 | disposition home or self-care (01) | LOC: SPT 06:00 | PROVIDERS: PCP Family Medicine; Visit Provider Family Medicine | DX: S88.119D Complete traumatic amputation at level between knee and ankle, unspecified lower leg, subsequent encounter (principal); X58.XXXD Exposure to other specified factors, subsequent encounter | CPT/HCPCS: 97110; 97112; 97116 ==

== ENCOUNTER 2022-09-21 06:00 | Outpatient (RCR) | payer MEDICARE, OTHER, SELFPAY | END 2022-10-20 23:59 | disposition home or self-care (01) | LOC: SPT 06:00 | PROVIDERS: PCP Family Medicine; Visit Provider Family Medicine | DX: S88.111D Complete traumatic amputation at level between knee and ankle, right lower leg, subsequent encounter (principal); S88.112D Complete traumatic amputation at level between knee and ankle, left lower leg, subsequent encounter; X58.XXXD Exposure to other specified factors, subsequent encounter | CPT/HCPCS: 97110; 97112; 97116 ==

== ENCOUNTER → 2022-10-07 09:46 | Outpatient (BNVA) | payer MEDICARE, OTHER, SELFPAY | PROVIDERS: PCP Family Medicine; Visit Provider Anesthesiology Pain Medicine | DX: M47.816 Spondylosis without myelopathy or radiculopathy, lumbar region (principal); M54.2 Cervicalgia; N18.32 Chronic kidney disease, stage 3b; D63.1 Anemia in chronic kidney disease; E11.65 Type 2 diabetes mellitus with hyperglycemia | CPT/HCPCS: 80048; 80069; 80197; 82310; 82570; 83036; 83735; 83970; 84156; 85025; 99214 ==

== ENCOUNTER → 2022-10-15 10:34 | Outpatient (BNVA) | payer MEDICARE, OTHER, SELFPAY | PROVIDERS: PCP Family Medicine; Visit Provider Family Medicine | DX: N18.6 End stage renal disease (principal); N18.32 Chronic kidney disease, stage 3b; D63.1 Anemia in chronic kidney disease | CPT/HCPCS: 80053; 80069; 80197; 82310; 83970; 85025 ==

== ENCOUNTER 2022-10-21 06:00 | Outpatient (RCR) | payer MEDICARE, OTHER, SELFPAY | END 2022-11-20 23:59 | disposition home or self-care (01) | LOC: SPT 06:00 | PROVIDERS: PCP Family Medicine; Visit Provider Family Medicine | DX: S88.119D Complete traumatic amputation at level between knee and ankle, unspecified lower leg, subsequent encounter (principal); X58.XXXD Exposure to other specified factors, subsequent encounter | CPT/HCPCS: 97110; 97112; 97116 ==

== ENCOUNTER → 2022-10-23 13:35 | Outpatient (BNVA) | payer MEDICARE, OTHER, SELFPAY | PROVIDERS: PCP Family Medicine; Visit Provider Anesthesiology Pain Medicine | DX: M47.816 Spondylosis without myelopathy or radiculopathy, lumbar region (principal) | CPT/HCPCS: 64635; 64636; J1030 ==

== ENCOUNTER → 2022-11-11 14:10 | Outpatient (BNVA) | payer MEDICARE, OTHER, SELFPAY | PROVIDERS: PCP Family Medicine; Visit Provider Anesthesiology Pain Medicine | DX: M47.816 Spondylosis without myelopathy or radiculopathy, lumbar region (principal) | CPT/HCPCS: 64635; 64636; J1030 ==

== ENCOUNTER 2022-11-21 06:00 | Outpatient (RCR) | payer MEDICARE, OTHER, SELFPAY | END 2022-12-20 23:59 | disposition home or self-care (01) | LOC: SPT 06:00 | PROVIDERS: PCP Family Medicine; Visit Provider Family Medicine | DX: S88.111D Complete traumatic amputation at level between knee and ankle, right lower leg, subsequent encounter (principal); S88.112D Complete traumatic amputation at level between knee and ankle, left lower leg, subsequent encounter; X58.XXXD Exposure to other specified factors, subsequent encounter | CPT/HCPCS: 97110; 97112; 97116 ==

== ENCOUNTER → 2022-11-26 08:52 | Outpatient (BNVA) | payer MEDICARE, OTHER, SELFPAY | PROVIDERS: PCP Family Medicine; Visit Provider Anesthesiology Pain Medicine | DX: M47.816 Spondylosis without myelopathy or radiculopathy, lumbar region (principal) | CPT/HCPCS: 99214 ==

== ENCOUNTER → 2022-12-09 08:54 | Outpatient (BNVA) | payer MEDICARE, OTHER, SELFPAY | PROVIDERS: PCP Family Medicine; Visit Provider Urology | DX: R33.9 Retention of urine, unspecified (principal); N39.0 Urinary tract infection, site not specified | CPT/HCPCS: 81003; 99213 ==

== ENCOUNTER 2022-12-21 06:00 | Outpatient (RCR) | payer MEDICARE, OTHER, SELFPAY | END 2023-01-20 23:59 | disposition home or self-care (01) | LOC: SPT 06:00 | PROVIDERS: PCP Family Medicine; Visit Provider Family Medicine | DX: S88.111D Complete traumatic amputation at level between knee and ankle, right lower leg, subsequent encounter (principal); S88.112D Complete traumatic amputation at level between knee and ankle, left lower leg, subsequent encounter; X58.XXXD Exposure to other specified factors, subsequent encounter | CPT/HCPCS: 97110; 97112; 97116 ==

== ENCOUNTER → 2023-01-06 08:44 | Outpatient (BNVA) | payer MEDICARE, OTHER, SELFPAY | PROVIDERS: PCP Family Medicine; Visit Provider Family Medicine | DX: E11.65 Type 2 diabetes mellitus with hyperglycemia (principal); N18.32 Chronic kidney disease, stage 3b; D63.1 Anemia in chronic kidney disease; E11.22 Type 2 diabetes mellitus with diabetic chronic kidney disease | CPT/HCPCS: 80048; 80053; 80061; 80197; 81003; 82043; 82310; 83036; 83970; 84443; 84460; 85025; 87077; 87086; 87184 ==

== ENCOUNTER 2023-01-21 06:00 | Outpatient (RCR) | payer MEDICARE, OTHER, SELFPAY | END 2023-02-20 23:59 | disposition home or self-care (01) | LOC: SPT 06:00 | PROVIDERS: PCP Family Medicine; Visit Provider Family Medicine | DX: S88.111D Complete traumatic amputation at level between knee and ankle, right lower leg, subsequent encounter (principal); S88.112D Complete traumatic amputation at level between knee and ankle, left lower leg, subsequent encounter; X58.XXXD Exposure to other specified factors, subsequent encounter | CPT/HCPCS: 97110; 97112; 97116 ==

== ENCOUNTER 2023-02-09 09:33 | Inpatient (IN) | payer MEDICARE, OTHER, SELFPAY ==
[2023-02-09] VITALS (60 sets, daily range): BP systolic 95–182; BP diastolic 26–70; PULSE 70–95; RESP 14–30; TEMP 37.3–37.7; O2SAT 87–97
--- NOTE | 2023-02-09 09:55 | XRR_ITS ---
PROCEDURE INFORMATION: Exam: XR Chest Exam date and time: 02/09/2023 10:28 AM Age: 77 years old Clinical indication: Pain; Other: Renal failure and history of chf; Extremities edematous; Patient HX: Insulin pump in mid chest TECHNIQUE: Imaging protocol: Radiologic exam of the chest. Views: 1 view. COMPARISON: CR XR chest 1V portable [id number] 09/19/2021 1:36 PM FINDINGS: Tubes, catheters and devices: Device overlying the mediastinum and diaphragmatic margin. Lungs: No significant airspace consolidation. Pleural spaces: Chronic blunting of the right costophrenic angle may be due to scarring or chronic small pleural effusion. Heart/Mediastinum: Postsurgical changes in the mediastinum. Stable mild cardiomegaly. Bones/joints: Median sternotomy wires noted. Cervical spinal fixation hardware noted. XR/XR chest 1V portable [id number] IMPRESSION: 1. Stable mild cardiomegaly. 2. Chronic blunting of the right costophrenic angle may be due to scarring or chronic small pleural effusion. 3. No significant airspace consolidation.
--- NOTE | 2023-02-09 10:13 | ECG_ITS ---
[facility] Test Date: 2023-02-09 Pat Name: Jaya Kidd Department: Room: Gender: Male Financial Professional: : 1945 Requested By: Alek Burt Order Number: [id number] Elena MD: Conchita Muhammad M.D. Measurements Intervals [place] Rate: 88 P: 0 MN: 0 QRS: -6 QRSD: 157 T: 0 QT: 349 QTc: 423 Interpretive Statements ATRIAL FIBRILLATION RIGHT BUNDLE BRANCH BLOCK [120+ ms QRS DURATION, UPRIGHT V1, 40+ ms S IN I/aVL/V4/V5/V6] Compared to ECG 09/19/2021 20:49:44 No significant changes Electronically Signed On 02-09-2023 11:06:23 CDT by Conchita Muhammad M.D. [email or web address]
[2023-02-09 10:14] LABS: Basophils % 0.1 %; Eosinophils % 0.1 %; Hematocrit 33.9 % (42.0-52.0); Hemoglobin 10.8 g/dL (11.7-16.6); Lymphocytes # 0.4 10^3/uL (0.8-4.8); Lymphocytes % 2.4 %; Mean Corpuscular HGB Conc 31.9 g/dL (30.0-36.0); Mean Corpuscular Hemoglobin 27.8 pg (28.0-34.0); Mean Corpuscular Volume 87.1 fl (80-94); Mean Platelet Volume 9.6 fL (7.4-10.4); Monocytes # 0.9 10^3/uL (0.2-0.9); Monocytes % 5.3 %; Neutrophils # 15.59 10^3/uL (1.8-7.7); Neutrophils % 91.5 %; Nucleated Red Blood Cells % 0 %; Platelet Count 239 10^3/cmm (130-400); Red Blood Count 3.89 10^6/uL (4.1-5.3); Red Cell Distribution Width 14.8 % (12.1-15.1)
--- NOTE | 2023-02-09 10:15 | ED_ITS ---
HPI - Male Genitourinary General: Chief complaint: Urogenital-Male Stated complaint: peeing bleed, swollen hands Time Seen by Provider: 02/09/23 09:38 History of Present Illness: Jaya is a 27-year-old man that presents to the emergency department with at his bedside for complaints of hematuria and swelling in extremities. reports patient has a complicated history with ? heart transplant and renal transplant. Records indicate that he is only had a CABG and not a transplant. 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 Patient's had multiple other orthopedic related surgical procedure He has a fistula in the right upper extremity His medical history also includes CKD, DM, hypertension, atrial fibrillation, CAD, CHF. Patient is anticoagulated with warfarin. Had an INR of 8.0 on Friday; held warfarin Friday and . Rechecked INR on Friday was unchanged. Has continued to hold warfarin this weekend. Patient had skin lesions removed from bilateral jaw/neck on Friday notes that he developed hematuria yesterday. She believes this is likely leading to the high INR as the patient self caths. He also has developed swelling in his upper extremities. No swelling noted in the lower extremities Patient's denies any febrile illness at home. Associated symptoms: Deny dysuria, hematuria, nausea or vomiting Review of Systems General: Reports: 10 or more systems reviewed and unremarkable except in HPI and below Const: Reports: chills, change in appetite and fatigue; Denies: fever(s), change in weight or malaise Eyes: Denies: change in vision, eye discomfort, eye discharge or eye redness ENMT: Reports: nasal discharge; Denies: throat pain, enlarged tonsils, odynophagia, hoarseness, ear or mastoid pain, ear discharge, change in hearing, tinnitus, nasal congestion, post nasal drip or sinus pain Card: Denies: chest pain, palpitations, irregular heart rhythm, edema, dyspnea on exertion, orthopnea or leg pain with exertion Resp: Denies: dyspnea, productive cough, non-productive cough, wheezing, stridor or chest congestion GI: Denies: abdominal pain, nausea, vomiting, dysphagia, diarrhea, constipation, bloating, GI cramping or hematochezia : Denies: flank pain, dysuria, urinary frequency, urinary urgency, urinary hesitancy, oliguria or hematuria Musc: Denies: neck pain, back pain, extremity pain, joint pain, joint swelling, joint redness, joint warmth or muscle weakness Skin/Breast: Denies: rash, pruritus, erythema, photosensitivity or new lesions Neuro: Denies: headache(s), numbness in extremities, weakness in extremities, sensory changes, lack of coordination, difficulty walking, frequent falls, dizziness, confusion, Slurred speech present, difficulty communicating thoughts, seizure-like activity or involuntary movements Endo: Reports: tired all the time; Denies: polyuria or polydipsia Quoc/Lymph: Denies: easy bruising or easy bleeding PFSH ED PFSH: Medical History Acute on chronic kidney failure [place] (acute kidney injury) Anemia Aortic root enlargement Arteriovenous fistula of right upper extremity CAD (coronary artery disease) Chronic kidney disease COVID-19 Had twice 09/2020 and 07/2021 COVID-19 vaccine administered moderna x 2 doses Dehydration Diabetes Type 2, with insulin pump and continuous glucose monitoring, history of DKA when insulin pump not utilized Diabetic ulcer of foot associated with diabetes mellitus due to underlying condition, with fat layer exposed Diarrhea Digoxin toxicity Dyslipidemia Elevated C-reactive protein (CRP) Elevated troponin 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 Essential hypertension Facet arthritis, degenerative, lumbar spine Hyperkalemia Hypertension Incomplete bladder emptying Insulin pump in place Long-term use of high-risk medication cellcept, tacrolimus, and chronic prednisone for transplant status Paroxysmal atrial fibrillation Peripheral artery disease Pressure ulcer of right foot Prostatic enlargement Recurrent UTI Sleep apnea SVT (supraventricular tachycardia) Urinary retention Urolithiasis Warfarin anticoagulation Surgical History History of angioplasty of peripheral vessel (~10/2020) History of arthroscopy of both knees History of cystoscopy History of hand surgery (~2018) right thumb History of neck surgery C6 corpectomy, C5-6, C6-7 anterior discectomy, C5-C7 plate and screw fixation, C5-C7 fusion History of partial amputation of toe of right foot (~2010) right 5th History of repair of right rotator cuff History of selective injection of anesthetic agent around lumbar nerve root L3,4,5 left and right 05/2021 History of shoulder surgery History of tonsillectomy (~2012) Hx of amputation below knee (~2018) Hx of appendectomy Hx of CABG (~2005) Hx of kidney transplant (~2011) [facility] Other postprocedural status radiofrequency ablation right L2-5 08/2019 radiofrequency ablation right L3-S1 06/2021 radiofrequency ablation left L3- S1 07/2021 Status post epidural steroid injection L4-5 right 11/2019 L3,4,5 left and right 05/2021 Transplanted kidney Family History Mother , AT AGE 94 Heart attack Father , AT AGE 45 MVA (motor vehicle accident) Other CAD (coronary artery disease) Cancer Diabetes Hypertension Social History Smoking and tobacco status: former smoker Alcohol intake: current Alcohol intake frequency: holidays/special occasions only Substance/Drug Use: never Adopted: No Household members: spouse Marital status: Current occupational status: retired and disabled Physical Exam Narrative: EXAM NARRATIVE: Chronically ill-appearing elderly male in no acute distress Patient is alert and oriented x3 He is cooperative Const: COMMON NORMALS: no acute distress, patient oriented x3 and alert GENERAL APPEARANCE: cooperative ORIENTATION/CONSCIOUSNESS: Yes awake, Yes oriented to person, Yes oriented to place and Yes oriented to time HENMT: COMMON NORMALS: normocephalic and atraumatic HEAD & SCALP: normo cephalic and atraumatic FACE & SINUS: normal facial exam MOUTH: Normal oral and palatal mucosa present THROAT: posterior oropharynx normal Eye: COMMON NORMALS: Equal, round and reactive pupils present, EOMs intact bilaterally, conjunctivae normal and no scleral icterus GENERAL EYE: appearance normal, both eyes and all related structures ALIGNMENT: Yes alignment normal PERIORBITAL: periorbital findings normal CONJUNCTIVA: Yes conjunctivae normal PUPIL: Yes Equal, round and reactive pupils present Neck/C-Spine: COMMON NORMALS: full ROM GENERAL: Yes normal visual inspection Lymph: LYMPHATIC: no lymphadenopathy noted Chest: COMMONS NORMALS: normal inspection of the chest Breast/axilla inspection: Yes no chest deformity, asymmetry, normal contours, no nodules, masses, tenderness Resp: COMMON NORMALS: normal respiratory effort, No retractions and No use of accessory muscles EFFORT & INSPECTION: Yes able to speak in complete s entences and Yes symmetric chest movement AUSCULTATION: diminished lung s ounds bilateral in the lower lung nieto Cardio: COMMON NORMALS: regular rate, regular rhythm and Peripheral pulses 2+ throughout RATE: regular rate RHYTHM: regular rhythm PERIPHERAL PULSES: Peripheral pulses 2+ throughout GI: COMMON NORMALS: Normal to inspection, nondistended, normoactive bowel sounds present, Soft to palpation, non-tender and No hepatosplenomegaly present INSPECTION: Yes normal to inspection AUSCULTATION: Yes normoactive bowel sounds PALPATION: Yes Soft to palpation and Yes No hepatosplenomegaly present RECTAL EXAM: Yes deferred Extremity: NARRATIVE EXTREMITY EXAM: Bilateral below the knee amputation Upper extremities with mild edema noted to hands and fingers Ecchymosis in different stages of healing to bilateral upper extremities GENERAL: Yes normal exam except as noted Neuro: COMMON NORMALS: patient oriented x3 SENSORIUM/ORIENTATION: Yes alert, Yes oriented to person, Yes oriented to place and Yes oriented to time CRANIAL NERVES: Yes CN normal except as noted Psych: COMMON NORMALS: mental status grossly normal, Normal thought process present, cooperative, activity/motor behavior normal, denies homicidal ideation and denies suicidal ideation THOUGHT PROCESS: Normal thought process present Skin: COMMON NORMALS: no rashes or lesions noted, no wounds and turgor normal GENERAL SKIN EXAM: no rashes or lesions noted and turgor normal Course Vital Signs: Vital signs: Vital Signs Temperature 99.8 F H 02/09/23 10:07 Pulse Rate 77 02/09/23 17:45 Respiratory Rate 23 H 02/09/23 17:45 Blood Pressure 148/67 02/09/23 17:45 Pulse Oximetry 93 02/09/23 17:45 [facility] - Male Medical Decision Making Patient was evaluated in the emergency department due to concerns of edema p resent in bilateral upper extremities and hematuria. reports that patient's INR was 8.0 and he continues to self cath. She believes that the hematuria is secondary to an INR of 8.0. He is currently holding his warfarin. Frontal diagnosis includes urethral trauma, abrasions in the presence of anticoagulation, cystitis, kidney stone, With regards to upper extremity edema, heart failure, dependent edema, fluid overload Talked with my attending attending early on regarding patient's presentation and complaints. Patient underwent EKG and troponin series, BNP, baseline CBC and CMP with PT/ INR. Obtained a chest x-ray. Urinalysis was sent as well Patient has a leukocytosis of 17,000 Low-grade temp Mild anemia but this is chronic in nature BUN is 79 creatinine is 3.9. Is up from his last of 1.5. BNP is 30,000 and troponin is 199. 2-hour delta is -10 Initial EKG revealed atrial fibrillation with a ventricular beat of 88 beats a minute and a right bundle branch block that is unchanged since August of this year. His 2-hour EKG again revealed atrial fibrillation with a right bundle branch block with a ventricular rate of 76 beats a minute. I did speak with the hospitalist at [facility]. He advised a CT kidney stone protocol. This was done to assess for hydronephrosis. A Ledezma was placed, Lasix was given regarding heart failure Regarding his urosepsis symptoms, we obtained cultures and gave him antibiotics. His urinalysis reveals hazy colored urine with 2+ protein, blood, 3+ bacteria mild leukoesterase, white count 25-40 and red blood cells too high to count. I did speak with here in [place] who is recommended admission to activity aide in [place]. I spoke with Dr. Montero, patient's activity aide at [facility] he was declined admission as well and is recommending patient be transported for transplanted kidney evaluation. I spoke with Dr. Bennett at [facility] who has recommended transfer to [facility]. Patient will be admitted to hospitalist service and nephrology will be consulting. We are to hold his CellCept but continue the prednisone and Prograf. It would likely be 24 to 48 hours before a bed is available Ultrasound kidney reveals no hydronephrosis Records have been electronically sent to [facility] Hospitlaist Dr Spencer admitting, Dr Bennett renal transplant team consulting. Notified by [facility] that it will be 24-[address] Aguilar has agreed to admit to [facility] on the medsurg floor. Lab Data 02/09/23 10:04 02/09/23 10:04 Radiology Impressions Chest X-Ray 02/09/23 09:55 IMPRESSION: 1. Stable mild cardiomegaly. 2. Chronic blunting of the right costophrenic angle may be due to scarring or chronic small pleural effusion. 3. No significant airspace consolidation. Abdomen/Pelvis CT 02/09/23 12:18 IMPRESSION: 1. Transplant kidney in the left lower quadrant appears enlarged, with moderate surrounding stranding and edema. This kidney now measures up to 10.3 cm in anterior-posterior length; previously measuring up to 8.7 cm on 03/19/2021 when measured in similar dimensions. The transplant ureter is hazy and poorly visualized, which is unchanged from 03/19/2021. This does, however, raise concern for hydronephrosis of the transplant kidney. Pyelonephritis, transplant rejection, and hydronephrosis are within the differential. Recommend renal ultrasound of the transplant kidney for further evaluation of the renal parenchyma and for potential hydronephrosis. 2. Urinary bladder demonstrates moderate wall thickening and mild surrounding stranding/edema. This may be secondary to nondistention and small volume ascites, but is concerning for cystitis. Fluid within the anterior urinary bladder measures approximately 35-40 Hounsfield units, consistent with hematuria. Renal Ultrasound 02/09/23 14:56 IMPRESSION: Mild caliectasis without matias hydronephrosis of the transplant kidney. Laboratory Results WBC 17.0 10^3/uL (4.0-10.0) H 02/09/23 10:04 RBC 3.89 10^6/uL (4.1-5.3) L 02/09/23 10:04 Hgb 10.8 g/dL (11.7-16.6) L 02/09/23 10:04 Hct 33.9 % (42.0-52.0) L 02/09/23 10:04 MCV 87.1 fl (80-94) 02/09/23 10:04 MCH 27.8 pg (28.0-34.0) L 02/09/23 10:04 MCHC 31.9 g/dL (30.0-36.0) 02/09/23 10:04 RDW 14.8 % (12.1-15.1) 02/09/23 10:04 Plt Count 239 10^3/cmm (130-400) 02/09/23 10:04 MPV 9.6 fL (7.4-10.4) 02/09/23 10:04 Neut % (Auto) 91.5 % 02/09/23 10:04 Lymph % (Auto) 2.4 % 02/09/23 10:04 [place] % (Auto) 5.3 % 02/09/23 10:04 Eos % (Auto) 0.1 % 02/09/23 10:04 Baso % (Auto) 0.1 % 02/09/23 10:04 Neut # (Auto) 15.59 10^3/uL (1.8-7.7) H 02/09/23 10:04 Lymph # (Auto) 0.4 10^3/uL (0.8-4.8) L 02/09/23 10:04 [place] # (Auto) 0.9 10^3/uL (0.2-0.9) 02/09/23 10:04 Eos # (Auto) 0.0 10^3/uL (0.0-0.8) 02/09/23 10:04 Baso # (Auto) 0.0 10^3/uL (0.0-0.1) 02/09/23 10:04 Nucleated RBC % (auto) 0 % 02/09/23 10:04 Nucleated RBCs # 0.0 /100WBC 02/09/23 10:04 PT 61.70 SECONDS (12.1-14.9) H 02/09/23 10:04 INR 6.78 (0.8-1.2) H* 02/09/23 10:04 Sodium 141 mmol/L (136-145) 02/09/23 10:04 Potassium 4.6 mmol/L (3.5-5.1) 02/09/23 10:04 Chloride 104 mmol/L (98-107) 02/09/23 10:04 Carbon Dioxide 24 mmol/L (22-29) 02/09/23 10:04 Anion Gap 17.6 (5-19) 02/09/23 10:04 BUN 79 mg/dL (8-23) H 02/09/23 10:04 Creatinine 3.9 mg/dL (0.7-1.2) H 02/09/23 10:04 GFR Calculation Not Reportable 02/09/23 10:04 Glucose 90 mg/dL (65-115) 02/09/23 10:04 Calculated Osmolality 315 mOsm/kg (285-295) H 02/09/23 10:04 Calcium 9.2 mg/dL (8.5-10.5) 02/09/23 10:04 Total Bilirubin 0.8 mg/dL (0.15-1.2) 02/09/23 10:04 AST 12 U/L (0-40) 02/09/23 10:04 ALT 10 U/L (0-41) 02/09/23 10:04 Alkaline Phosphatase 149 U/L (40-130) H 02/09/23 10:04 Troponin T Gen 5 ng/L 199 ng/L (0-15) H* 02/09/23 10:04 Troponin T 120 Minute 188.9 ng/L (0-15) H 02/09/23 11:57 Delta Troponin T -10.1 ABS# (0-10) L 02/09/23 11:57 Troponin T Hi Sens 6Hr 177.3 ng/L (0-15) H 02/09/23 16:16 Troponin T Hi Sens 6Hr Delta -21.7 ng/L (0-12) L 02/09/23 16:16 NT-Pro-B Natriuret Pep 17741 pg/mL (0-450) H 02/09/23 10:04 Total Protein 6.0 g/dL (6.6-8.7) L 02/09/23 10:04 Albumin 3.1 g/dL (3.5-5.2) L 02/09/23 10:04 Globulin 2.9 g/dL (1.3-4.6) 02/09/23 10:04 Urine Color Red (Yellow) 02/09/23 10:57 Urine Appearance Hazy (CLEAR) A 02/09/23 10:57 Urine pH 6.5 (5-7) 02/09/23 10:57 Ur Specific [place] 1.010 (1.005-1.030) 02/09/23 10:57 Urine Protein 2+ (Negative) H 02/09/23 10:57 Urine Glucose (UA) Norm (Normal) 02/09/23 10:57 Urine Ketones Negative (Negative) 02/09/23 10:57 Urine Blood 3+ (Negative) H 02/09/23 10:57 Urine Nitrate Negative (Negative) 02/09/23 10:57 Urine Bilirubin Neg (Negative) 02/09/23 10:57 Urine Urobilinogen 1 mg/dL (Negative) H 02/09/23 10:57 Ur Leukocyte Esterase 2+ (Negative) H 02/09/23 10:57 Urine RBC Too numerous to cnt /hpf (0-2) H 02/09/23 10:57 Urine WBC 25-40 /hpf (0-5) H 02/09/23 10:57 Ur Squamous Epith Cells None /hpf (0-5) 02/09/23 10:57 Amorphous Sediment Not Reportable 02/09/23 10:57 Urine Bacteria 2+ /hpf (NONE) H 02/09/23 10:57 Digoxin 3.2 ng/mL (0.6-1.2) H* 02/09/23 16:16 Discharge Plan Discharge Patient Disposition: Admitted As Inpatient Clinical Impression: End stage renal disease, Acute pyelonephritis, Acute rejection of kidney transplant, Elevated troponin, Elevated brain natriuretic peptide (BNP) level Condition: Stable Coding Level of Care Code ED [place] Worker for Antionette Fenton
[2023-02-09 10:45] LABS: Alanine Aminotransferase 10 U/L (0-41); Albumin Level 3.1 g/dL (3.5-5.2); Alkaline Phosphatase 149 U/L (40-130); Anion Gap 17.6 (5-19); Aspartate Amino Transferase 12 U/L (0-40); Blood Urea Nitrogen 79 mg/dL (8-23); Calcium 9.2 mg/dL (8.5-10.5); Carbon Dioxide 24 mmol/L (22-29); Chloride 104 mmol/L (98-107); Globulin 2.9 g/dL (1.3-4.6); Glucose 90 mg/dL (65-115); Osmolality Calculated 315 mOsm/kg (285-295); Potassium 4.6 mmol/L (3.5-5.1); Sodium 141 mmol/L (136-145); Total Bilirubin 0.8 mg/dL (0.15-1.2); Troponin T (5th) Once 199 ng/L (0-15)
[2023-02-09 11:05] LABS: NT Pro B Type Natriuretic Pept 29272 pg/mL (0-450)
[2023-02-09 11:07] LABS: INR 6.78 (0.8-1.2)
--- NOTE | 2023-02-09 12:05 | ECG_ITS ---
[facility] Test Date: 2023-02-09 Pat Name: Jaya Kidd Department: Room: Gender: Male Lead Producer: : 1945 Requested By: Alek Burt Order Number: [id number] Elena MD: Conchita Muhammad M.D. Measurements Intervals [place] Rate: 76 P: 0 SD: 0 QRS: 4 QRSD: 156 T: 0 QT: 344 QTc: 389 Interpretive Statements ATRIAL FIBRILLATION RIGHT BUNDLE BRANCH BLOCK [120+ ms QRS DURATION, UPRIGHT V1, 40+ ms S IN I/aVL/V4/V5/V6] Compared to ECG 02/09/2023 10:13:41 No significant changes Electronically Signed On 02-09-2023 13:23:03 CDT by Conchita Muhammad M.D. [id number]
[2023-02-09 12:09] LABS: Add Urine Microscopic? YES; Bilirubin Urine Neg (Negative); Blood Urine 3+ (Negative); Glucose Urine UA Norm (Normal); Ketones Urine Negative (Negative); Leukocyte Esterase Urine 2+ (Negative); Nitrate Urine Negative (Negative); Protein Urine 2+ (Negative); Urine Appearance Hazy (CLEAR); Urine Color Red (Yellow); Urobilinogen Urine 1 mg/dL (Negative); pH Urine 6.5 (5-7)
[2023-02-09 12:10] LABS: Add Urine Culture? Yes; Bacteria Urine 2+ /hpf; RBC Urine TOO NUMEROUS TO CNT /hpf (0-2); WBC Urine 25-40 /hpf (0-5)
--- NOTE | 2023-02-09 12:18 | CTR_ITS ---
PROCEDURE INFORMATION: Exam: CT Abdomen And Pelvis Without Contrast Exam date and time: 02/09/2023 12:56 PM Age: 77 years old Clinical indication: Other: Hematuria; Prior surgery; Surgery date: 6+ months; Surgery type: Leg TECHNIQUE: Imaging protocol: Computed tomography of the abdomen and pelvis without contrast. Radiation optimization: All CT scans at this facility use at least one of these dose optimization techniques: automated exposure control; mA and/or kV adjustment per patient size (includes targeted exams where dose is matched to clinical indication); or iterative reconstruction. REPORTING DATA: Count of CT and Cardiac NM exams in prior 12 months: This patient has received 0 known CTs and 0 known cardiac nuclear medicine studies in the 12 months prior to the current study. COMPARISON: CT abdomen pelvis w con* [id number] 03/19/2021 5:41 PM RADIATION DOSE METRICS: Total DLP (mGy-cm): 683.65 FINDINGS: Lungs: Lung bases demonstrate [id number] small pleural effusions with subjacent atelectasis. Heart: Heart demonstrates coronary and valvular calcific disease. Cardiomegaly, unchanged. Liver: Normal. No mass. Gallbladder and bile ducts: Small dependent stones in the gallbladder, unchanged from 03/19/2021. Mild gallbladder wall thickening is likely secondary to abdominal ascites. Pancreas: Normal. No ductal dilation. Spleen: Normal. No splenomegaly. Adrenal glands: Normal. No mass. Kidneys and ureters: Severely atrophy of the natural kidneys bilaterally, unchanged. Transplant kidney in the left lower quadrant appears enlarged, with moderate surrounding stranding and edema. This kidney now measures up to 10.3 cm in anterior-posterior length; previously measuring up to 8.7 cm on 03/19/2021 when measured in similar dimensions. The transplant ureter is hazy and poorly visualized, which is unchanged from 03/19/2021. Stomach and bowel: Unremarkable. No obstruction. No mucosal thickening. Appendix: No evidence of appendicitis. Intraperitoneal space: Small volume ascites. Vasculature: Severe diffuse large vessel calcific disease. Lymph nodes: Unremarkable. No enlarged lymph nodes. Urinary bladder: Ledezma catheter bulb appropriately positioned in the urinary bladder. Urinary bladder demonstrates moderate wall thickening and mild surrounding stranding/edema. Fluid within the anterior urinary bladder measures proximally 35 and 40 Hounsfield units, consistent with hematuria. Reproductive: Unremarkable as visualized. Bones/joints: Discogenic degenerative changes at L4-L5 and at L5-S1. No acute fracture identified. Partially imaged changes of median sternotomy. Soft tissues: Mild diffuse anasarca. CT/CT kidney stone [id number] IMPRESSION: 1. Transplant kidney in the left lower quadrant appears enlarged, with moderate surrounding stranding and edema. This kidney now measures up to 10.3 cm in anterior-posterior length; previously measuring up to 8.7 cm on 03/19/2021 when measured in similar dimensions. The transplant ureter is hazy and poorly visualized, which is unchanged from 03/19/2021. This does, however, raise concern for hydronephrosis of the transplant kidney. Pyelonephritis, transplant rejection, and hydronephrosis are within the differential. Recommend renal ultrasound of the transplant kidney for further evaluation of the renal parenchyma and for potential hydronephrosis. 2. Urinary bladder demonstrates moderate wall thickening and mild surrounding stranding/edema. This may be secondary to nondistention and small volume ascites, but is concerning for cystitis. Fluid within the anterior urinary bladder measures approximately 35-40 Hounsfield units, consistent with hematuria.
[2023-02-09 12:40] LABS: Troponin 5 2HR Delta -10.1 ABS# (0-10)
[2023-02-09 12:41] LABS: Troponin 5 2HR 188.9 ng/L (0-15)
[2023-02-09] MEDS: FUROsemide 10 mg/mL SDV 4mL 40 MG IVP (13:01)
[2023-02-09] MEDS: cefTRIAXone 1,000 MG in sodium chloride 0.9% (plus) 50 ML 100 MG IV (13:04)
--- NOTE | 2023-02-09 14:56 | USR_ITS ---
PROCEDURE INFORMATION: Exam: US Retroperitoneal; Complete; Kidneys and Bladder Exam date and time: 02/09/2023 3:14 PM Age: 77 years old Clinical indication: Abnormal findings; Abnormal radiologic finding of the abdomen; Radiologic exam and body structure: CT kidneys; Prior surgery; Surgery date: 6+ months; Surgery type: History of renal transplant; Additional info: Pyelonephritis in a renal transplant patient TECHNIQUE: Imaging protocol: Real-time ultrasound of the retroperitoneum with image documentation. Complete exam focused on the kidneys and bladder. COMPARISON: US renal BI with PV bladder 10/24/2021 11:26 AM FINDINGS: Atrophied [place] kidneys noted. No evident mass. Transplant kidney within the left iliac fossa noted measuring 11.2 cm in length. There is mild caliectasis without matias hydronephrosis. Ledezma catheter noted within a decompressed bladder. Enlarged prostate measuring 4.1 x 4.1 x 5.1 cm. US/US renal BI* [id number] IMPRESSION: Mild caliectasis without matias hydronephrosis of the transplant kidney.
--- NOTE | 2023-02-09 16:05 | ECG_ITS ---
[facility] Test Date: 2023-02-09 Pat Name: Jaya Kidd Department: Room: Gender: Male Editorial Director: : 1945 Requested By: Alek Burt Order Number: [id number] Reading MD: Conchita Muhammad M.D. Measurements Intervals [place] Rate: 80 P: 0 FL: 0 QRS: 12 QRSD: 156 T: 0 QT: 355 QTc: 410 Interpretive Statements ATRIAL FIBRILLATION RIGHT BUNDLE BRANCH BLOCK [120+ ms QRS DURATION, UPRIGHT V1, 40+ ms S IN I/aVL/V4/V5/V6] Compared to ECG 02/09/2023 12:10:56 No significant changes Electronically Signed On 02-09-2023 17:18:09 CDT by Conchita Muhammad M.D. [id number]
--- NOTE | 2023-02-09 16:16 | P.HP_ITS ---
Providers/Chief Complaint Primary Care Provider: Mercy Priest MD Chief Complaint: peeing bleed, swollen hands History of Present Illness Jaya Kidd Sr is a 77 year old male with a past medical history significant for multiple comorbidities including end-stage renal disease status post left pelvic renal cadaveric transplant on tacrolimus/CellCept/prednisone, bilateral BKAs, type 2 diabetes mellitus on insulin pump and continuous glucose monitoring, and paroxysmal atrial fibrillation on digoxin and warfarin who presents to the emergency department with gross hematuria x2 days. Endorses associated symptoms of bilateral hand swelling. Patient reports recent history of supratherapeutic INR recently 8 on Friday. Patient reports he self caths at home typically about 4 times per day. He reports that subjectively urinary output seems to have decreased the last day or so. Endorses chills. Denies fevers, nausea or emesis. In the ED, patient was found to have multiple derangements on labs. Labs revealed leukocytosis with white count of 17, supratherapeutic INR of 6.78, elevated BUN of 79, and elevated creatinine of 3.9 (previously 1.5). Urinalysis with multiple abnormalities. CT of abdomen and pelvis revealed an enlarged transplanted kidney with moderate surrounding stranding and edema. There were findings concerning for possible hydronephrosis with pyelonephritis and transplant rejection being at the differential. Urinary bladder wall was moderately thickened with surrounding stranding and edema concerning for cystitis. Hounsfield units of the urine was consistent with hematuria. Follow- up renal ultrasound showed mild caliectasis without matias hydronephrosis. She was treated with Lasix and ceftriaxone. ED provider, Alek Cuello, reports patient accepted to [facility] however beds not immediately available. She reports EMTALA has been filled out so whenever bed is available patient will transfer. Review of Systems Narrative: A complete review of systems was obtained and is negative except as stated in HPI. Medications/Allergies Home Medications Medication Instructions Recorded Confirmed Last Taken Type cetirizine 10 mg tablet (All Day 10 mg PO DAILY@09/02/19 02/09/23 02/09/23 History Allergy (cetirizine)) cholecalciferol (vitamin D3) 75 3,000 unit PO DAILY@89909/02/19 02/09/23 02/09/23 History mcg (3,000 unit) tablet prednisone 5 mg tablet 5 mg PO DAILY@89909/02/19 02/09/23 02/09/23 History sodium bicarbonate 650 mg tablet 1,300 mg PO TID@11/03/20 02/09/23 02/09/23 History aspirin 81 mg tablet,delayed 81 mg PO DAILY@05/25/21 02/09/23 02/09/23 History release (Adult Low Dose Aspirin) furosemide 20 mg tablet 20 mg PO DAILY PRN Edema 05/25/21 02/09/23 08/24/21 09: 00 History digoxin 125 mcg (0.125 mg) tablet 125 mcg PO DAILY@899 90 days #90 04/08/22 02/09/23 02/09/23 Rx tabs hydralazine 100 mg tablet 100 mg PO TID@ #270 tabs 04/10/22 02/09/23 02/09/23 Rx hydrochlorothiazide 25 mg tablet 25 mg PO DAILY@ #90 tabs 04/10/22 02/09/23 02/09/23 Rx amlodipine 5 mg tablet 10 mg PO DAILY@899 #180 tabs 06/19/22 02/09/23 02/09/23 Rx insulin aspart U-100 100 unit/mL 1 sliding scale dose .Route 08/20/22 02/09/23 Unknown Rx subcutaneous solution (Novolog .COMPLEX 30 days #10 mL U-100 Insulin aspart) tramadol 50 mg tablet 50 mg PO BID PRN pain #45 tabs 10/07/22 02/09/23 Unknown Rx tamsulosin 0.4 mg capsule 0.4 mg PO BEDTIME@2100 #90 caps 11/05/22 02/09/23 Unknown Rx atorvastatin 20 mg tablet 20 mg PO BEDTIME@02/09/23 02/09/23 02/08/23 History famotidine 20 mg tablet (Pepcid) 20 mg PO DAILY@02/09/23 02/09/23 02/09/23 History ferrous sulfate 325 mg (65 mg 325 mg PO DAILY@02/09/23 02/09/23 02/09/23 History iron) tablet mycophenolate mofetil 250 mg 500 mg PO BID@02/09/23 02/09/23 02/09/23 His tory capsule tacrolimus 0.5 mg capsule, See Rx Instructions .Route .COMPLEX 02/09/23 02/09/23 02/09/23 History immediate-release tacrolimus 1 mg capsule, 1 mg PO BID 02/09/23 02/09/23 02/09/23 History immediate-release tobramycin 0.3 % eye drops 1 drp ophthalmic (eye) BEDTIME 02/09/23 02/09/23 Unknown History warfarin 5 mg tablet 5 mg PO DAILY 02/09/23 02/09/23 02/04/23 History LAST TOOK 02/04/23 Allergies Allergy/AdvReac Type Severity Reaction Status Date / Time sulfamethoxazole AdvReac Intermediate acute Verified 02/09/23 10:23 [From kidney Sulfamethoxazole-Trimethoprim] injury and high INR trimethoprim AdvReac Intermediate acute Verified 02/09/23 10:23 [From kidney Sulfamethoxazole-Trimethoprim] injury and high INR PFSH Acute PFSH: Medical History Acute on chronic kidney failure MIREILLE (acute kidney injury) Anemia Aortic root enlargement Arteriovenous fistula of right upper extremity CAD (coronary artery disease) Chronic kidney disease COVID-19 Had twice 09/2020 and 07/2021 COVID-19 vaccine administered moderna x 2 doses Dehydration Diabetes Type 2, with insulin pump and continuous glucose monitoring, history of DKA when insulin pump not utilized Diabetic ulcer of foot associated with diabetes mellitus due to underlying condition, with fat layer exposed Diarrhea Digoxin toxicity Dyslipidemia Elevated C-reactive protein (CRP) Elevated troponin 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 Essential hypertension Facet arthritis, degenerative, lumbar spine Hyperkalemia Hypertension Incomplete bladder emptying Insulin pump in place Long-term use of high-risk medication cellcept, tacrolimus, and chronic prednisone for transplant status Paroxysmal atrial fibrillation Peripheral artery disease Pressure ulcer of right foot Prostatic enlargement Recurrent UTI Sleep apnea SVT (supraventricular tachycardia) Urinary retention Urolithiasis Warfarin anticoagulation Surgical History History of angioplasty of peripheral vessel (~10/2020) History of arthroscopy of both knees History of cystoscopy History of hand surgery (~2018) right thumb History of neck surgery C6 corpectomy, C5-6, C6-7 anterior discectomy, C5-C7 plate and screw fixation, C5-C7 fusion History of partial amputation of toe of right foot (~2010) right 5th History of repair of right rotator cuff History of selective injection of anesthetic agent around lumbar nerve root L3,4,5 left and right 05/2021 History of shoulder surgery History of tonsillectomy (~2012) Hx of amputation below knee (~2018) Hx of appendectomy Hx of CABG (~2005) Hx of kidney transplant (~2011) [facility] Other postprocedural status radiofrequency ablation right L2-5 08/2019 radiofrequency ablation right L3-S1 06/2021 radiofrequency ablation left L3- S1 07/2021 Status post epidural steroid injection L4-5 right 11/2019 L3,4,5 left and right 05/2021 Transplanted kidney Family History Mother , AT AGE 94 Heart attack Father , AT AGE 45 MVA (motor vehicle accident) Other CAD (coronary artery disease) Cancer Diabetes Hypertension Social History Smoking and tobacco status: former smoker Alcohol intake: current Alcohol intake frequency: holidays/special occasions only Substance/Drug Use: never Adopted: No Household members: spouse Marital status: Current occupational status: retired and disabled Vitals/I&O/Wt Last Vital Signs Temp 99.8 F H 02/09/23 10:07 Pulse 71 02/09/23 16:00 Resp 23 H 02/09/23 16:00 BP 108/46 02/09/23 16:00 Pulse Ox 92 02/09/23 16:00 Weight last 48 hrs Weight 63.503 kg Physical Exam Narrative: General: Patient is awake. Ill-appearing. Head: Normocephalic. Atraumatic. Neck: No JVD. Cardiovascular: Regular rate. Diastolic blood pressure low. No gallops. No murmurs. Mild edema in hands bilaterally. Lungs: Breath sounds diminished bilateral bases, no use of accessory muscles, no crackles or wheezes. Skin: No jaundice. No rashes. Abdomen: Normal bowel sounds, abdomen soft. Genito Urinary: Left CVA tenderness present. Ledezma catheter with 500 mL of clear red urine without clots. Extremities: No cyanosis or clubbing. 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 No myoclonus. Urinary Catheter Management: Ledezma: Cath Placed During This Visit: yes Urinary Catheter Date of Insertion: 02/09/23 Urinary Catheter Time of Insertion: 12:40 Data 02/09/23 10:04 02/09/23 10:04 Micro: Microbiology 02/09/23 12:28 Blood Culture - Preliminary Blood SPECIMEN COLLECTED 02/09/23 12:23 Blood Culture - Preliminary Blood SPECIMEN COLLECTED A&P Assessment and plan (1) Gross hematuria: Gross hematuria w/o blood clots on exam Status post Ledezma catheter insertion in ED Hold aspirin Hold warfarin Pending transfer to tertiary center (2) MIREILLE (acute kidney injury): Acute kidney injury with history of end-stage renal disease status post cadaveric left-sided pelvic renal transplant Avoid nephrotoxins Hold digoxin until level returns Hold HCTZ and Lasix Strict I's and O's Renally dose medications Per ED provider, nephrology/transplant team recommended continuing Prograf at current dose and holding CellCept Continue current dose of prednisone, on 5 mg daily Transfer when bed is available (3) Acute pyelonephritis: Prior cultures reviewed most recent has been Klebsiella Seems to be multiple strains with different resistant patterns Start cefepime, renally dosed Analgesics as needed (4) Urinary retention: Typically self caths at home around 4 times per day Ledezma catheter placed in the emergency department Routine Ledezma care (5) Warfarin anticoagulation: Complicated by warfarin induced coagulopathy with elevated INR Gross hematuria without blood clots not considered serious or critical bleed Holding warfarin Trend INR (6) Paroxysmal atrial fibrillation: Hold digoxin given acute kidney injury Digoxin levels pending Telemetry monitoring Holding warfarin given elevated INR (7) Insulin pump in place: Type 2 diabetes mellitus with continuous glucose monitoring and insulin pump Patient alert and oriented Discussed continuing CGM/pump versus long-acting/short acting insulin, patient and family requested they just continue their own CGM/insulin pump management Monitor blood glucose closely Plan DVT prophylaxis: INR is elevated CODE STATUS: Full code Attestations Medical Necessity Statement*: Patient presents with multiple metabolic derangements requiring transfer to Center with transplant nephrology services however beds unavailable for which patients being admitted pending bed with expected hospitalization not to cross 2 midnights. Coding Level of Care Code Acute Code for g Fwd Diagnoses Gross hematuria R31.0 MIREILLE (acute kidney injury) N17.9 Acute pyelonephritis N10 Urinary retention R33.9 Warfarin anticoagulation Z79.01 Paroxysmal atrial fibrillation I48.[address] Z96.41
[2023-02-09 16:50] LABS: Troponin 5 6HR Delta -21.7 ng/L (0-12)
[2023-02-09 16:51] LABS: Troponin 5 6HR 177.3 ng/L (0-15)
[2023-02-09 17:44] LABS: Digoxin 3.2 ng/mL (0.6-1.2)
[2023-02-09 17:45] LABS: Procalcitonin 1.22 ng/mL (0-0.5)
[2023-02-09] MEDS: cefepime 1,000 MG in sodium chloride 0.9% (plus) 50 ML 100 MG IV (18:16)
[2023-02-09] MEDS: TRAMadol 50 mg Tablet PO (19:55)
[2023-02-09] MEDS: tacrolimus 0.5 mg Capsule 1 MG PO (21:32)
[2023-02-09] MEDS: sodium bicarbonate 650 mg Tablet 1300 MG PO (21:32)
[2023-02-09] MEDS: atorvastatin 40 mg Tablet PO (21:32)
[2023-02-09] MEDS: tamsulosin 0.4 mg Capsule PO (21:32)
[2023-02-09] MEDS: tobramycin 0.3% Op Soln 5 mL Btl 1 DROP XX (21:45)
[2023-02-10] VITALS (9 sets, daily range): BP systolic 137–154; BP diastolic 31–82; PULSE 56–75; RESP 18–28; TEMP 36.5–37.3; O2SAT 92–97
[2023-02-10 04:17] LABS: Basophils % 0.1 %; Hematocrit 31.2 % (42.0-52.0); Hemoglobin 9.4 g/dL (11.7-16.6); Lymphocytes # 0.8 10^3/uL (0.8-4.8); Lymphocytes % 4.2 %; Mean Corpuscular HGB Conc 30.1 g/dL (30.0-36.0); Mean Corpuscular Hemoglobin 27.3 pg (28.0-34.0); Mean Corpuscular Volume 90.7 fl (80-94); Monocytes # 0.9 10^3/uL (0.2-0.9); Monocytes % 5.2 %; Neutrophils # 15.98 10^3/uL (1.8-7.7); Neutrophils % 89.8 %; Nucleated Red Blood Cells % 0 %; Platelet Count 208 10^3/cmm (130-400); Red Blood Count 3.44 10^6/uL (4.1-5.3); Red Cell Distribution Width 14.7 % (12.1-15.1); White Blood Count 17.8 10^3/uL (4.0-10.0)
[2023-02-10 04:26] LABS: Acinetobacter baumannii Not Detected (NOT DETECT); Bacteroides fragilis Not Detected (NOT DETECT); CTX-M Not Detected (NOT DETECT); Citrobacter Not Detected (NOT DETECT); Cronobacter sakazakii Not Detected (NOT DETECT); Enterobacter cloacae complex Not Detected (NOT DETECT); Enterobacter non cloacae Not Detected (NOT DETECT); Fusobacterium necrophorum Not Detected (NOT DETECT); Fusobacterium nucleatum Not Detected (NOT DETECT); Haemophilus influenzae Not Detected (NOT DETECT); IMP Resistance Gene Not Detected (NOT DETECT); KPC Resistance Gene Not Detected (NOT DETECT); Klebsiella pneumoniae group Not Detected (NOT DETECT); Morganella morganii Not Detected (NOT DETECT); NDM Resistance Gene Not Detected (NOT DETECT); Neisseria meningitidis Not Detected (NOT DETECT); OXA Resistance Gene Not Detected (NOT DETECT); Pan Candida Not Detected (NOT DETECT); Pan Gram-Positive Not Detected (NOT DETECT); Proteus mirabilis Not Detected (NOT DETECT); Pseudomonas aeruginosa Not Detected (NOT DETECT); Salmonella Not Detected (NOT DETECT); Serratia Not Detected (NOT DETECT); Serratia marcescens Not Detected (NOT DETECT); Stenotrophomonas maltophilia Not Detected (NOT DETECT); VIM Resistance Gene Not Detected (NOT DETECT)
[2023-02-10 04:35] LABS: Alanine Aminotransferase 8 U/L (0-41); Albumin Level 2.3 g/dL (3.5-5.2); Alkaline Phosphatase 141 U/L (40-130); Anion Gap 15.5 (5-19); Aspartate Amino Transferase 9 U/L (0-40); Blood Urea Nitrogen 78 mg/dL (8-23); Calcium 8.7 mg/dL (8.5-10.5); Carbon Dioxide 24 mmol/L (22-29); Chloride 106 mmol/L (98-107); Globulin 2.8 g/dL (1.3-4.6); Glucose 108 mg/dL (65-115); Magnesium 2.3 mg/dL (1.7-2.3); Osmolality Calculated 316 mOsm/kg (285-295); Phosphorus 3.5 mg/dL (2.5-4.5); Potassium 4.5 mmol/L (3.5-5.1); Sodium 141 mmol/L (136-145); Total Bilirubin 0.7 mg/dL (0.15-1.2); Total Protein 5.1 g/dL (6.6-8.7)
[2023-02-10 09:41] LABS: Digoxin 2.6 ng/mL (0.6-1.2)
[2023-02-10] MEDS: cetirizine 10 mg Tablet PO (09:42)
[2023-02-10] MEDS: famotidine 20 mg Tablet PO (09:42)
[2023-02-10] MEDS: predniSONE 5 mg Tablet PO (09:42)
[2023-02-10] MEDS: ferrous sulfate EC 325 mg Tablet PO (09:42)
[2023-02-10] MEDS: sodium bicarbonate 650 mg Tablet 1300 MG PO ×3 (09:42→20:34)
[2023-02-10 09:50] LABS: INR 7.15 (0.8-1.2)
--- NOTE | 2023-02-10 09:50 | P.CONIM_ITS ---
Providers/Reason For Consult Consulting Physician/Specialty*: [facility]/Nephrology Reason for Consult*: MIREILLE , Attending Physician: Andrea Aguilar MD Primary Care Provider: Mercy Priest MD History of Present Illness History of Present Illness Jaya Kidd Sr is a 77 year old male Patient is a 77-year-old male with past medical history of multiple comorbidities including diabetes, hypertension, paroxysmal A-fib on chronic anticoagulation history of recurrent UTIs, history of cadaveric renal transplant in 2011, on immunosuppression with tacrolimus CellCept and prednisone, bilateral BKA's presented to the emergency department with gross hematuria and family also reports decreased p.o. intake subjective fevers decreased urine output in the last few days. Symptoms somewhat similar to his prior UTIs. CT of the abdomen revealed enlarged transplanted kidney with surrounding stranding. On the renal ultrasound there was no hydronephrosis. He is currently on cefepime for UTI. His baseline creatinine is around 1.5 and worsened to 3.9 currently. Patient also reports that his Prograf level was recently increased. Follows with Dr. Varghese and Dr. Montero as outpatient from nephrology. Review of Systems Narrative: negative Medications/Allergies Home Medications Medication Instructions Recorded Confirmed Last Taken Type cetirizine 10 mg tablet (All Day 10 mg PO DAILY@09/02/19 02/09/23 02/09/23 History Allergy (cetirizine)) cholecalciferol (vitamin D3) 75 3,000 unit PO DAILY@0900 09/02/19 02/09/23 02/09/23 History mcg (3,000 unit) tablet prednisone 5 mg tablet 5 mg PO DAILY@0900 09/02/19 02/09/23 02/09/23 History sodium bicarbonate 650 mg tablet 1,300 mg PO TID@,,11/03/20 02/09/23 02/09/23 History aspirin 81 mg tablet,delayed 81 mg PO DAILY@05/25/21 02/09/23 02/09/23 History release (Adult Low Dose Aspirin) furosemide 20 mg tablet 20 mg PO DAILY PRN Edema 05/25/21 02/09/23 08/24/21 09:00 History digoxin 125 mcg (0.125 mg) tablet 125 mcg PO DAILY@0900 90 days #90 04/08/22 02/09/23 02/09/23 Rx tabs hydralazine 100 mg tablet 100 mg PO TID@,, #270 tabs 04/10/22 02/09/23 02/09/23 Rx hydrochlorothiazide 25 mg tablet 25 mg PO DAILY@09 #90 tabs 04/10/22 02/09/23 02/09/23 Rx amlodipine 5 mg tablet 10 mg PO DAILY@0900 #180 tabs 06/19/22 02/09/23 02/09/23 Rx insulin aspart U-100 100 unit/mL 1 sliding scale dose .Route 08/20/22 02/09/23 Unknown Rx subcutaneous solution (Novolog .COMPLEX 30 days #10 mL U-100 Insulin aspart) tramadol 50 mg tablet 50 mg PO BID PRN pain #45 tabs 10/07/22 02/09/23 Unknown Rx tamsulosin 0.4 mg capsule 0.4 mg PO BEDTIME@2100 #90 caps 11/05/22 02/09/23 Unknown Rx atorvastatin 20 mg tablet 20 mg PO BEDTIME@02/09/23 02/09/23 02/08/23 History famotidine 20 mg tablet (Pepcid) 20 mg PO DAILY@09 02/09/23 02/09/23 02/09/23 History ferrous sulfate 325 mg (65 mg 325 mg PO DAILY@02/09/23 02/09/23 02/09/23 History iron) tablet mycophenolate mofetil 250 mg 500 mg PO BID@02/09/23 02/09/23 02/09/23 History capsule tacrolimus 0.5 mg capsule, See Rx Instructions .Route .COMPLEX 02/09/23 02/09/23 02/09/23 History immediate-release tacrolimus 1 mg capsule, 1 mg PO BID 02/09/23 02/09/23 02/09/23 History immediate-release tobramycin 0.3 % eye drops 1 drp ophthalmic (eye) BEDTIME 02/09/23 02/09/23 Unknown History warfarin 5 mg tablet 5 mg PO DAILY 02/09/23 02/09/23 02/04/23 History LAST TOOK 02/04/23 Allergies Allergy/AdvReac Type Severity Reaction Status Date / Time sulfamethoxazole AdvReac Intermediate acute Verified 02/09/23 10:23 [From kidney Sulfamethoxazole-Trimethoprim] injury and high INR trimethoprim AdvReac Intermediate acute Verified 02/09/23 10:23 [From kidney Sulfamethoxazole-Trimethoprim] injury and high INR Current Medications Generic Name Dose Route Start Last Admin Trade Name Casey PRN Reason Stop Dose Admin Atorvastatin Calcium 40 mg 02/09/23 21:00 02/09/23 21:32 Atorvastatin 40 Mg Tablet PO 40 mg BEDTIME@21 GLADIS Administration Cetirizine HCl 10 mg 02/10/23 09:00 02/10/23 09:42 Cetirizine 10 Mg Tablet PO 10 mg DAILY@09 GLADIS Administration Famotidine 20 mg 02/10/23 09:00 02/10/23 09:42 Famotidine 20 Mg Tablet PO 20 mg DAILY@09 GLADIS Administration Ferrous Sulfate 325 mg 02/10/23 09:00 02/10/23 09:42 Ferrous Sulfate Ec 325 Mg Tablet PO 325 mg DAILY@09 GLADIS Administration Cefepime HCl 1,000 mg/ Sodium 50 mls @ 100 mls/hr 02/09/23 18:00 02/09/23 19:00 Chloride IV 02/16/23 18:29 Infused Q24H GLADIS Infusion Protocol Prednisone 5 mg 02/10/23 09:00 02/10/23 09:42 Prednisone 5 Mg Tablet PO 5 mg DAILY@0900 GLADIS Administration Sodium Bicarbonate 1,300 mg 02/09/23 21:00 02/10/23 09:42 Sodium Bicarbonate 650 Mg Tablet PO 1,300 mg TID@ GLADIS Administration Tacrolimus 1 mg 02/09/23 20:45 02/09/23 21:32 Tacrolimus 0.5 Mg Capsule PO 1 mg BID GLADIS Administration Tamsulosin HCl 0.4 mg 02/09/23 21:00 02/09/23 21:32 Tamsulosin 0.4 Mg Capsule PO 0.4 mg BEDTIME@2100 GLADIS Administration Tobramycin Sulfate 1 drop 02/09/23 21:00 02/09/23 21:45 Tobramycin 0.3% Op Soln 5 Ml Btl XX 1 drop BEDTIME GLADIS Administration PFSH Acute PFSH: Medical History Acute on chronic kidney failure MIREILLE (acute kidney injury) Anemia Aortic root enlargement Arteriovenous fistula of right upper extremity CAD (coronary artery disease) Chronic kidney disease COVID-19 Had twice 09/2020 and 07/2021 COVID-19 vaccine administered moderna x 2 doses Dehydration Diabetes Type 2, with insulin pump and continuous glucose monitoring, history of DKA when insulin pump not utilized Diabetic ulcer of foot associated with diabetes mellitus due to underlying condition, with fat layer exposed Diarrhea Digoxin toxicity Dyslipidemia Elevated C-reactive protein (CRP) Elevated troponin 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 Essential hypertension Facet arthritis, degenerative, lumbar spine Hyperkalemia Hypertension Incomplete bladder emptying Insulin pump in place Long-term use of high-risk medication cellcept, tacrolimus, and chronic prednisone for transplant status Paroxysmal atrial fibrillation Peripheral artery disease Pressure ulcer of right foot Prostatic enlargement Recurrent UTI Sleep apnea SVT (supraventricular tachycardia) Urinary retention Urolithiasis Warfarin anticoagulation Surgical History History of angioplasty of peripheral vessel (~10/2020) History of arthroscopy of both knees History of cystoscopy History of hand surgery (~2018) right thumb History of neck surgery C6 corpectomy, C5-6, C6-7 anterior discectomy, C5-C7 plate and screw fixation, C5-C7 fusion History of partial amputation of toe of right foot (~2010) right 5th History of repair of right rotator cuff History of selective injection of anesthetic agent around lumbar nerve root L3,4,5 left and right 05/2021 History of shoulder surgery History of tonsillectomy (~2012) Hx of amputation below knee (~2018) Hx of appendectomy Hx of CABG (~2005) Hx of kidney transplant (~2011) [facility] Other postprocedural status radiofrequency ablation right L2-5 08/2019 radiofrequency ablation right L3-S1 06/2021 radiofrequency ablation left L3- S1 07/2021 Status post epidural steroid injection L4-5 right 11/2019 L3,4,5 left and right 05/2021 Transplanted kidney Family History Mother , AT AGE 94 Heart attack Father , AT AGE 45 MVA (motor vehicle accident) Other CAD (coronary artery disease) Cancer Diabetes Hypertension Social History Smoking and tobacco status: former smoker Alcohol intake: current Alcohol intake frequency: holidays/special occasions only Substance/Drug Use: never Adopted: No Household members: spouse Marital status: Current occupational status: retired and disabled Vitals/I&O/Wt Last Vital Signs Temp 98.2 F 02/10/23 08:00 Pulse 73 02/10/23 08:00 Resp 19 H 02/10/23 08:00 BP 137/57 02/10/23 08:00 Pulse Ox 94 02/10/23 08:00 O2 Del Method Nasal Cannula 02/10/23 08:00 O2 Flow Rate 2 02/10/23 04:00 02/09/23 02/10/23 02/10/23 22:59 06:59 14:59 Intake Total 340 / 340 120 / 460 360 / 360 Output Total 825 / 825 750 / 1575 Balance -485 / -485 -630 / -1115 360 / 360 Weight last 48 hrs Weight 74.661 kg Weight 63.503 kg Physical Exam Narrative: awake ,lert no distress S1 S2 RRR per repor t Lunge clear per report + edema Urinary Catheter Management: Ledezma: Cath Placed During This Visit: yes Reason for Continuing Indwelling Catheter: Acute Urinary Retention or Obstruction Urinary Catheter Date of Insertion: 02/09/23 Urinary Catheter Time of Insertion: 12:40 Data 02/10/23 03:35 02/10/23 03:35 Micro: Microbiology 02/09/23 10:57 Urine Culture - Preliminary Urine,Clean Catch Gram Negative Rods 02/09/23 12:28 Blood Culture - Preliminary Blood 02/09/23 12:23 Blood Culture - Preliminary Blood A&P Assessment and plan (1) MIREILLE (acute kidney injury): Plan 1. Acute on chronic kidney disease stage III: Baseline creatinine is 1.5 range. Now has MIREILLE with a creatinine of 3.9, possibly prerenal MIREILLE from decreased p.o. intake and possible ATN in the setting of UTI. -But given rapid rise in creatinine from baseline , in the setting of renal transplant-other possibilities include tacrolimus toxicity and transplant rejection. -We will check Prograf level this morning, hold CellCept -We will give gentle IV fluids and IV albumin today and as needed Lasix if needed. -Agree with transferring for higher level of care for further management of his transplant. 2. Gross hematuria: Likely from UTI and in the setting of supratherapeutic INR. CT scan did not show evidence of any stone. , Hematuria improved now, monitor 3. Paroxysmal A-fib On digoxin, levels pending 4. History of diabetes 5. History of hypertension. Patient evaluated using audiovisual cart. Time spent 40 minutes Consult Attestations Medical Necessity Statement: per medicine Coding Level of Care Code Acute Code for g Fwd Diagnoses MIREILLE (acute kidney injury) N17.9
[2023-02-10] MEDS: TRAMadol 50 mg Tablet PO (09:55)
--- NOTE | 2023-02-10 10:05 | PC.NURSE ---
pt reports of chest heaviness and punching on his chest 10 mins ago. rated it at 5/10 per pain scale. stated that he has chronic pains on his back and body, takes tramadol at home. notified Dr Aguilar and order received to get ekg. by the time nurse came back in 10 mins pt stated his chest pain went away.
--- NOTE | 2023-02-10 10:18 | ECG_ITS ---
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 Measurements Intervals [place] Rate: 71 P: 0 MT: 0 QRS: -14 QRSD: 162 T: 0 QT: 389 QTc: 424 Interpretive Statements ATRIAL FIBRILLATION RIGHT BUNDLE BRANCH BLOCK [120+ ms QRS DURATION, UPRIGHT V1, 40+ ms S IN I/aVL/V4/V5/V6] Compared to ECG 02/09/2023 16:12:24 No significant changes Electronically Signed On 02-10-2023 11:07:40 CDT by Conchita Muhammad M.D. [id number]
[2023-02-10] MEDS: tacrolimus 0.5 mg Capsule 1 MG PO ×2 (10:49→20:35)
[2023-02-10] MEDS: tacrolimus 0.5 mg Capsule PO (10:49)
[2023-02-10] MEDS: sodium chloride 0.9% 1,000 ML 50 ML IV (10:49)
[2023-02-10] MEDS: albumin 25 G/100 ML BAG 60 G IV ×2 (10:49→17:01)
--- NOTE | 2023-02-10 13:53 | P.PN_ITS ---
Subjective Subjective: Patient reports he feels somewhat better today. Notes the swelling in his upper extremities has improved. Continues to endorse left sided abdominal and back discomfort. Denies nausea or emesis. Denies fevers or chills. Spouse is bedside and supportive. Medications: Reviewed: Yes Vitals/I&O/Wt Last Vital Signs Temp 98.2 F 02/10/23 08:00 Pulse 75 02/10/23 12:00 Resp 22 H 02/10/23 12:00 BP 154/35 02/10/23 12:00 Pulse Ox 96 02/10/23 12:00 O2 Del Method Nasal Cannula 02/10/23 12:00 O2 Flow Rate 2 02/10/23 04:00 02/09/23 02/10/23 02/10/23 22:59 06:59 14:59 Intake Total 340 / 340 120 / 460 700 / 700 Output Total 825 / 825 750 / 1575 Balance -485 / -485 -630 / -1115 700 / 700 Weight last 48 hrs Weight 74.661 kg Weight 63.503 kg Physical Exam Narrative: General: Patient is awake. Alert. Pleasant. Head: Normocephalic. Atraumatic. Neck: No JVD. Cardiovascular: No gallops. No murmurs. No significant edema in hands. Lungs: Breath sounds diminished bilateral bases, no use of accessory muscles, no crackles or wheezes. Skin: No jaundice. No rashes. Abdomen: Normal bowel sounds, abdomen soft. Genito Urinary: Left CVA tenderness. Gross hematuria. Extremities: No cyanosis or clubbing. 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 No myoclonus. Urinary Catheter Management: Ledezma: Cath Placed During This Visit: yes Reason for Continuing Indwelling Catheter: Acute Urinary Retention or Obstruction Urinary Catheter Date of Insertion: 02/09/23 Urinary Catheter Time of Insertion: 12:40 Data 02/10/23 03:35 02/10/23 03:35 Micro: Microbiology 02/09/23 10:57 Urine Culture - Preliminary Urine,Clean Catch Gram Negative Rods 02/09/23 12:28 Blood Culture - Preliminary Blood 02/09/23 12:23 Blood Culture - Preliminary Blood A&P Assessment and plan (1) Gross hematuria: Gross hematuria w/o large blood clots Status post Ledezma catheter Hold aspirin Hold warfarin Pending transfer to tertiary center (2) MIREILLE (acute kidney injury): Non-oliguric acute kidney injury with history of end-stage renal disease status post cadaveric left-sided pelvic renal transplant Cr remains elevated Avoid nephrotoxins Hold digoxin given supratherapeutic level Hold HCTZ and Lasix Strict I's and O's Renally dose medications Continue Prograf Holding CellCept Continue prednisone Nephrology evaluation requested Transfer when bed is available (3) Acute pyelonephritis: Continue cefepime (02/09-P), renally dosed Analgesics as needed (4) Urinary retention: Continue Ledezma catheter (5) Warfarin anticoagulation: Complicated by warfarin induced coagulopathy with elevated INR Gross hematuria without blood clots not considered serious or critical bleed Holding warfarin Trend INR (6) Paroxysmal atrial fibrillation: Hold digoxin Telemetry monitoring Holding warfarin given elevated INR (7) Insulin pump in place: Type 2 diabetes mellitus with continuous glucose monitoring and insulin pump Patient remains alert and oriented Ok to continue home pump, reassess as needed Monitor blood glucose closely Plan DVT prophylaxis: INR is elevated CODE STATUS: Full code Attestations Medical Necessity Statement*: Patient requires ongoing hospitalization for IV antibiotics, IV albumin, telemetry, and supportive care. Coding Level of Care Code Acute Code for [facility] Diagnoses Gross hematuria R31.0 MIREILLE (acute kidney injury) N17.9 Acute pyelonephritis N10 Urinary retention R33.9 Warfarin anticoagulation Z79.01 Paroxysmal atrial fibrillation I48.[address] Z96.41
[2023-02-10] MEDS: cefepime 1,000 MG in sodium chloride 0.9% (plus) 50 ML 100 MG IV (17:00)
[2023-02-10] MEDS: tamsulosin 0.4 mg Capsule PO (20:33)
[2023-02-10] MEDS: atorvastatin 40 mg Tablet PO (20:36)
[2023-02-10] MEDS: tobramycin 0.3% Op Soln 5 mL Btl 1 DROP XX (20:37)
[2023-02-11] VITALS (9 sets, daily range): BP systolic 110–160; BP diastolic 42–68; PULSE 63–82; RESP 14–21; TEMP 36.6–36.7; O2SAT 94–97
[2023-02-11] MEDS: albumin 25 G/100 ML BAG 60 G IV ×3 (01:32→18:27)
[2023-02-11] MEDS: sodium chloride 0.9% 1,000 ML 50 ML IV (05:13)
[2023-02-11 05:38] LABS: Basophils % 0.1 %; Eosinophils % 0.4 %; Hematocrit 30.6 % (42.0-52.0); Hemoglobin 9.2 g/dL (11.7-16.6); Lymphocytes # 0.7 10^3/uL (0.8-4.8); Lymphocytes % 6.8 %; Mean Corpuscular HGB Conc 30.1 g/dL (30.0-36.0); Mean Corpuscular Hemoglobin 27.1 pg (28.0-34.0); Mean Corpuscular Volume 90.3 fl (80-94); Mean Platelet Volume 10.3 fL (7.4-10.4); Monocytes # 0.6 10^3/uL (0.2-0.9); Monocytes % 5.3 %; Neutrophils # 9.03 10^3/uL (1.8-7.7); Neutrophils % 86.9 %; Nucleated Red Blood Cells % 0 %; Platelet Count 202 10^3/cmm (130-400); Red Blood Count 3.39 10^6/uL (4.1-5.3); Red Cell Distribution Width 14.6 % (12.1-15.1); White Blood Count 10.4 10^3/uL (4.0-10.0)
[2023-02-11 06:02] LABS: Alanine Aminotransferase 6 U/L (0-41); Albumin Level 3.3 g/dL (3.5-5.2); Alkaline Phosphatase 118 U/L (40-130); Anion Gap 16.4 (5-19); Aspartate Amino Transferase 9 U/L (0-40); Blood Urea Nitrogen 80 mg/dL (8-23); Calcium 9.1 mg/dL (8.5-10.5); Carbon Dioxide 25 mmol/L (22-29); Chloride 104 mmol/L (98-107); Globulin 2.5 g/dL (1.3-4.6); Glucose 134 mg/dL (65-115); Magnesium 2.3 mg/dL (1.7-2.3); Osmolality Calculated 318 mOsm/kg (285-295); Potassium 4.4 mmol/L (3.5-5.1); Sodium 141 mmol/L (136-145); Total Bilirubin 0.7 mg/dL (0.15-1.2); Total Protein 5.8 g/dL (6.6-8.7)
[2023-02-11 06:19] LABS: Digoxin 2.3 ng/mL (0.6-1.2)
--- NOTE | 2023-02-11 07:57 | PM.PN ---
Subjective Subjective: no new complaints Medications: Reviewed: Yes Vitals/I&O/Wt Last Vital Signs Temp 97.7 F 02/10/23 23:35 Pulse 64 02/11/23 06:45 Resp 14 02/11/23 03:11 BP 160/42 02/11/23 03:11 Pulse Ox 97 02/11/23 03:11 O2 Del Method Nasal Cannula 02/11/23 03:11 O2 Flow Rate 2 02/11/23 03:11 02/10/23 02/11/23 02/11/23 22:59 06:59 14:59 Intake Total 270 / 970 1051.667 / 2021.667 Output Total 700 / 700 650 / 1350 Balance -430 / 270 401.667 / 671.667 Weight last 48 hrs Weight 74.661 kg Weight 63.503 kg Physical Exam Narrative: awake ,lert no distress S1 S2 RRR per repor t Lunge clear per report + edema Urinary Catheter Management: Ledezma: Cath Placed During This Visit: yes Reason for Continuing Indwelling Catheter: Acute Urinary Retention or Obstruction Urinary Catheter Date of Insertion: 02/09/23 Urinary Catheter Time of Insertion: 12:40 Data 02/12/23 06:45 02/12/23 06:45 Micro: Microbiology 02/09/23 10:57 Urine Culture - Preliminary Urine,Clean Catch Gram Negative Rods A&P Assessment and plan (1) MIREILLE (acute kidney injury): Plan 1. Acute on chronic kidney disease stage III: Baseline creatinine is 1.5 range. Now has MIREILLE with a creatinine of 3.9, possibly prerenal MIREILLE from decreased p.o. intake and possible ATN in the setting of UTI. -But given rapid rise in creatinine from baseline , in the setting of renal transplant-other possibilities include tacrolimus toxicity and transplant rejection. -Prograf level low , holding CellCept -Noted elevated dig level but trending down now , will give IVFs again today and watch renal function -Agree with transferring for higher level of care for further management of his transplant. 2. Gross hematuria: Likely from UTI and in the setting of supratherapeutic INR. CT scan did not show evidence of stone. , Hematuria improved now, monitor 3. Paroxysmal A-fib On digoxin, levels pending 4. History of diabetes 5. History of hypertension. Patient evaluated using audiovisual cart. Time spent 40 minutes Attestations Medical Necessity Statement*: per matthew Coding Level of Care Code Acute Code for Chg Fwd Diagnoses MIREILLE (acute kidney injury) N17.9
[2023-02-11] MEDS: predniSONE 5 mg Tablet PO (08:23)
[2023-02-11] MEDS: sodium bicarbonate 650 mg Tablet 1300 MG PO ×3 (08:23→20:12)
[2023-02-11] MEDS: tacrolimus 0.5 mg Capsule PO (08:23)
[2023-02-11] MEDS: tacrolimus 0.5 mg Capsule 1 MG PO ×2 (08:23→17:33)
[2023-02-11] MEDS: ferrous sulfate EC 325 mg Tablet PO (08:23)
[2023-02-11] MEDS: cetirizine 10 mg Tablet PO (08:23)
[2023-02-11] MEDS: famotidine 20 mg Tablet PO (08:23)
--- NOTE | 2023-02-11 09:51 | PC.CHAP ---
Pastoral Care Encounter/Spiritual Assessment Type of Contact [] Declined urgent care nurse practitioner visit [] Patient/Family/Request visit [] Outpatient visit [] Follow-up visit [] Physician referral [] Code/Alert [x] Routine visit [] Staff referral [] Actively dying [] Patient sleeping [x] Family support [] [] Out of room [] Palliative care [] [] Receiving care in room [] Pre-surgical visit [] Trauma [] Long length of stay [] ICU visit [] Other: Relational/Emotional Strength [x] Patient feels connected with others/family/visitors/staff [] Distress [] Loneliness/isolation [] Abandonment Spirituality of Patient [x] Person of Katherine [] Attends Mosque of their [place] [x] Believes in Prayer [] Reads Bible or Pentecostal materials [] There are Spiritual issues to be addressed [employer]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 [x] Prayer [x] Active listening [] Non-anxious presence [x] Spiritual/emotional support [] Crisis/trauma care [] Spiritual counseling [] Bereavement support [] Provided bereavement packet [] Provided Bible/devotional materials [] Provided toy/stuffed animal, coloring book to patient or family member [] Provided Communion [] Anointing/[place] [] Salvation [x] Completed spiritual assessment [] Other: Impact on Illness or Injury [] Angry [] Fearful [] Anxious [] Often cries [] Exhaustion [] Unable to work [] Unable to attend taoist [] Unable to walk/stand [] Unable to read [] Unable to drive [] Unable to eat/drink [] Unable to sleep [] Unable to be with family [] Patient intubated [] Other: Summary Time spent with patient 5 min
--- NOTE | 2023-02-11 10:36 | PM.PN ---
Subjective Subjective: Patient reports he is feeling a little better today. Denies any further edema in his hands. Spouse reports his mentation is sharper than yesterday, stating he seemed to have some mental fog yesterday. He reports ok appetite. Reports fever broke. Denies fevers, chills, nausea or emesis. Medications: Reviewed: Yes Vitals/I&O/Wt Last Vital Signs Temp 97.9 F 02/11/23 08:00 Pulse 81 02/11/23 08:39 Resp 19 H 02/11/23 08:39 BP 140/68 02/11/23 08:39 Pulse Ox 94 02/11/23 08:39 O2 Del Method Nasal Cannula 02/11/23 08:00 O2 Flow Rate 2 02/11/23 03:11 02/10/23 02/11/23 02/11/23 22:59 06:59 14:59 Intake Total 270 / 970 1051.667 / 2021.667 480 / 480 Output Total 700 / 700 650 / 1350 Balance -430 / 270 401.667 / 671.667 480 / 480 Weight last 48 hrs Weight 74.661 kg Physical Exam Narrative: General: Patient is awake.? Alert.? Head:? Normocephalic. Atraumatic. Neck: No JVD. Cardiovascular: No gallops. No murmurs.? No significant edema in hands. Lungs: Breath sounds diminished bilateral bases, no use of accessory muscles, no crackles or wheezes. Skin: No jaundice. No rashes. Abdomen: Normal bowel sounds, abdomen soft. Genito Urinary: Improving gross hematuria. Extremities: No cyanosis or clubbing. 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 No myoclonus Urinary Catheter Management: Ledezma: Cath Placed During This Visit: yes Reason for Continuing Indwelling Catheter: Acute Urinary Retention or Obstruction Urinary Catheter Date of Insertion: 02/09/23 Urinary Catheter Time of Insertion: 12:40 Data 02/11/23 05:07 02/11/23 05:07 Micro: Microbiology 02/09/23 10:57 Urine Culture - Preliminary Urine,Clean Catch Gram Negative Rods A&P Assessment and plan (1) Gross hematuria: Hematuria is improving, light pink urine today Continue Ledezma catheter Hold aspirin Hold warfarin, INR still elevated Pending transfer to tertiary center for transplant nephrology care, [facility] (2) MIREILLE (acute kidney injury): Non-oliguric acute kidney injury with history of end-stage renal disease status post cadaveric left-sided pelvic renal transplant Cr remains elevated, currently 3.7, baseline ~1.5 Avoid nephrotoxins Hold digoxin given supratherapeutic level Hold HCTZ and Lasix Strict I's and O's Renally dose medications Continue Prograf, level pending Holding CellCept Continue prednisone Telenephro following Transfer when bed is available (3) Acute pyelonephritis: Ux w/ GNR, follow up ID Continue cefepime (02/09-P), renally dosed Analgesics as needed (4) Urinary retention: Continue Ledezma catheter (5) Warfarin anticoagulation: Complicated by warfarin induced coagulopathy with elevated INR Holding warfarin Trend INR (6) Paroxysmal atrial fibrillation: Hold digoxin Telemetry monitoring Holding warfarin given elevated INR (7) Insulin pump in place: Type 2 diabetes mellitus with continuous glucose monitoring and insulin pump Pump is running out of insulin Rotate to moderate SSI and adjust as needed Attestations Medical Necessity Statement*: Patient requires ongoing hospitalization for serial labs, telemetry, IV fluids, IV abx, and supportive care Coding Level of Care Code Acute Code for [facility] Fwd Diagnoses Gross hematuria R31.0 MIREILLE (acute kidney injury) N17.9 Acute pyelonephritis N10 Urinary retention R33.9 Warfarin anticoagulation Z79.01 Paroxysmal atrial fibrillation I48.[address] Z96.41
[2023-02-11] MEDS: insulin lispro 100 unit/1 mL SUBCUT ×2 (14:36→20:41)
[2023-02-11] MEDS: cefepime 1,000 MG in sodium chloride 0.9% (plus) 50 ML 100 MG IV (17:32)
[2023-02-11] MEDS: sodium chloride 0.9% 500 ML 50 ML IV (18:28)
[2023-02-11] MEDS: tamsulosin 0.4 mg Capsule PO (20:12)
[2023-02-11] MEDS: atorvastatin 40 mg Tablet PO (20:13)
[2023-02-11] MEDS: tobramycin 0.3% Op Soln 5 mL Btl 1 DROP XX (20:13)
[2023-02-11 20:27] LABS: Glucose Point of Care 281 mg/dL (70-110)
[2023-02-12] VITALS (7 sets, daily range): BP systolic 108–187; BP diastolic 49–68; PULSE 67–78; RESP 14–17; TEMP 36.4–36.9; O2SAT 91–98
--- NOTE | 2023-02-12 02:15 | PC.NURSE ---
Patient transferred [facility] 271. Spouse at bedside. Report called to IRVIN Dutton. Marija at bedside on arrival.
[2023-02-12] MEDS: albumin 25 G/100 ML BAG 60 G IV ×3 (03:05→20:49)
--- NOTE | 2023-02-12 03:08 | PC.NURSE ---
Patient has dexacom. is able to view patient's blood sugar on her cell phone. states patient's insulin pump is empty.
[2023-02-12 04:58] LABS: Glucose Point of Care 382 mg/dL (70-110)
[2023-02-12 07:21] LABS: Basophils % 0.1 %; Eosinophils % 0.4 %; Hematocrit 29.3 % (37-53); Lymphocytes # 0.8 10^3/uL (0.8-4.8); Lymphocytes % 10.5 %; Mean Corpuscular Hemoglobin 27.2 pg (27-33); Mean Corpuscular Volume 90.4 fl (82-101); Monocytes # 0.4 10^3/uL (0.2-0.9); Monocytes % 5.5 %; Neutrophils # 6.31 10^3/uL (1.8-7.7); Nucleated Red Blood Cells % 0 %; Platelet Count 201 10^3/cmm (157-399); Red Blood Count 3.24 10^6/uL (3.85-5.65); Red Cell Distribution Width 14.4 % (12.1-15.1); White Blood Count 7.61 10^3/uL (3.29-11.43)
[2023-02-12 07:31] LABS: INR 2.83 (0.8-1.2)
[2023-02-12 07:32] LABS: Glucose Point of Care 454 mg/dL (70-110)
[2023-02-12 07:41] LABS: Alanine Aminotransferase 10 U/L (0-41); Albumin Level 3.5 g/dL (3.5-5.2); Alkaline Phosphatase 147 U/L (40-130); Anion Gap 23.6 (5-19); Aspartate Amino Transferase 14 U/L (0-40); Calcium 9.2 mg/dL (8.5-10.5); Carbon Dioxide 20 mmol/L (22-29); Chloride 99 mmol/L (98-107); Globulin 2.3 g/dL (1.3-4.6); Glucose 423 mg/dL (65-115); Magnesium 2.3 mg/dL (1.7-2.3); Osmolality Calculated 328 mOsm/kg (285-295); Phosphorus 3.8 mg/dL (2.5-4.5); Potassium 5.6 mmol/L (3.5-5.1); Sodium 137 mmol/L (136-145); Total Bilirubin 0.8 mg/dL (0.15-1.2); Total Protein 5.8 g/dL (6.6-8.7)
[2023-02-12 07:44] LABS: Blood Urea Nitrogen 84 mg/dL (8-23); Digoxin 2.5 ng/mL (0.6-1.2)
[2023-02-12] MEDS: insulin lispro 100 unit/1 mL SUBCUT ×4 (07:52→22:56)
[2023-02-12] MEDS: tacrolimus 0.5 mg Capsule 1 MG PO ×2 (10:10→20:48)
[2023-02-12] MEDS: tacrolimus 0.5 mg Capsule PO (10:10)
[2023-02-12] MEDS: ferrous sulfate EC 325 mg Tablet PO (10:11)
[2023-02-12] MEDS: sodium bicarbonate 650 mg Tablet 1300 MG PO ×3 (10:11→20:49)
[2023-02-12] MEDS: predniSONE 5 mg Tablet PO (10:11)
[2023-02-12] MEDS: cetirizine 10 mg Tablet PO (10:12)
[2023-02-12] MEDS: famotidine 20 mg Tablet PO (10:12)
[2023-02-12 11:25] LABS: Glucose Point of Care 446 mg/dL (70-110)
--- NOTE | 2023-02-12 11:25 | PM.PN ---
Subjective Subjective: no new complaints PO intake improved Vitals/I&O/Wt Last Vital Signs Temp 98.3 F 02/12/23 07:59 Pulse 78 02/12/23 07:59 Resp 16 02/12/23 07:59 BP 187/49 02/12/23 07:59 Pulse Ox 98 02/12/23 07:59 O2 Del Method Nasal Cannula 02/12/23 07:59 O2 Flow Rate 2 02/11/23 03:11 02/11/23 02/12/23 02/12/23 22:59 06:59 14:59 Intake Total 630 / 1570 600 / 2170 360 / 360 Output Total 325 / 325 Balance 630 / 1570 275 / 1845 360 / 360 Weight last 48 hrs Weight 80.541 kg Physical Exam Narrative: awake ,lert no distress S1 S2 RRR per repor t Lunge clear per report + edema Urinary Catheter Management: Ledezma: Cath Placed During This Visit: yes Reason for Continuing Indwelling Catheter: Accurate Measurement of Urinary Output in Critically Ill Patients Urinary Catheter Date of Insertion: 02/09/23 Urinary Catheter Time of Insertion: 12:40 Data 02/12/23 06:45 02/12/23 06:45 Micro: Microbiology 02/09/23 10:57 Urine Culture - Final Urine,Clean Catch Escherichia coli 02/09/23 12:23 Blood Culture - Preliminary Blood Escherichia coli 02/09/23 12:28 Blood Culture - Preliminary Blood Escherichia coli A&P Assessment and plan (1) MIREILLE (acute kidney injury): Plan 1. Acute on chronic kidney disease stage III: Baseline creatinine is 1.5 range. Now has MIREILLE with a creatinine of 3.9, possibly prerenal MIREILLE from decreased p.o. intake and possible ATN in the setting of UTI. -But given rapid rise in creatinine from baseline , in the setting of renal transplant-other possibilities include tacrolimus toxicity and transplant rejection. -Prograf level low , holding CellCept -Noted elevated dig level but trending down now , will give IVFs again today and watch renal function , Cr slightly better @ 3.5 -Agree with transferring for higher level of care for further management of his transplant.may need transplant renal biospy 2. Gross hematuria: Likely from UTI and in the setting of supratherapeutic INR. CT scan did not show evidence of stone. , Hematuria improved now, monitor 3. Paroxysmal A-fib On digoxin, levels pending 4. History of diabetes 5. History of hypertension. Patient evaluated using audiovisual cart. Time spent 20 minutes Attestations Medical Necessity Statement*: per medicine Coding Level of Care Code Acute Code for g Fwd Diagnoses MIREILLE (acute kidney injury) N17.9
[2023-02-12] MEDS: sodium chloride 0.9% 1,000 ML 75 ML IV (13:11)
[2023-02-12] MEDS: cefTRIAXone 1,000 MG in sodium chloride 0.9% (plus) 50 ML 100 MG IV (13:17)
[2023-02-12] MEDS: insulin glargine 100 units/1 mL 20 UNIT SUBCUT (14:09)
[2023-02-12] MEDS: acetaminophen 325 mg Tablet 650 MG PO (14:52)
--- NOTE | 2023-02-12 16:31 | P.PN_ITS ---
Subjective Subjective: Hospital course, labs appreciated. Seen with family at bedside. Patient lying comfortably in bed. States feeling the same. Denies any nausea, vomiting, headache. As per the spouse at bedside she is concerned about his blood sugars running high overnight. States hematuria seems to be improving. We discussed that for now we are waiting for the patient to be transferred to [facility] for further evaluation of possible graft rejection. Otherwise has remained hemodynamically stable and afebrile. Concerns for mild confusion. Appreciate slight improvement in urine output the last 24 hours. Medications: Reviewed: Yes Vitals/I&O/Wt Last Vital Signs Temp 98.5 F 02/12/23 12:00 Pulse 67 02/12/23 12:00 Resp 16 02/12/23 12:00 BP 154/66 02/12/23 12:00 Pulse Ox 93 02/12/23 12:00 O2 Del Method Nasal Cannula 02/12/23 12:00 O2 Flow Rate 2 02/12/23 08:00 02/12/23 02/12/23 02/12/23 06:59 14:59 22:59 Intake Total 600 / 2170 990 / 990 Output Total 325 / 325 1000 / 1000 Balance 275 / 1845 -10 / -10 Weight last 48 hrs Weight 80.541 kg Physical Exam Narrative: General: Chronically sick appearing, no acute distress, awake and alert x2-3 with occasional Confusion, dehydrated Head:? Normocephalic. Atraumatic. Neck: No JVD. Cardiovascular: No gallops. No murmurs.? No significant edema in hands. Lungs: Breath sounds diminished bilateral bases, no use of accessory muscles, no crackles or wheezes. Skin: No jaundice. No rashes. Abdomen: Normal bowel sounds, abdomen soft. Genito Urinary: Improving gross hematuria. Extremities: No cyanosis or clubbing. 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 No myoclonus Urinary Catheter Management: Ledezma: Cath Placed During This Visit: yes Reason for Continuing Indwelling Catheter: Accurate Measurement of Urinary Output in Critically Ill Patients Urinary Catheter Date of Insertion: 02/09/23 Urinary Catheter Time of Insertion: 12:40 Data 02/12/23 06:45 02/12/23 06:45 Micro: Microbiology 02/09/23 12:28 Blood Culture - Preliminary Blood Escherichia coli 02/09/23 10:57 Urine Culture - Final Urine,Clean Catch Escherichia coli 02/09/23 12:23 Blood Culture - Preliminary Blood Escherichia coli A&P Assessment and plan (1) Gross hematuria: Improving. Most likely in setting of renal injury in setting of pyelonephritis in a patient with baseline renal transplant versus cystitis versus supratherapeutic INR on admission. Continue with Ledezma catheterization. Hold off on Coumadin and aspirin. Monitor INR. Pending transfer to tertiary center for transplant nephrology care, [facility] (2) MIREILLE (acute kidney injury): Non-oliguric acute kidney injury with history of end-stage renal disease status post cadaveric left-sided pelvic renal transplant. Appreciate nephrology recommendations. Elevated digoxin levels. Medical reconciliation done for nephrotoxic drugs. Discussed with nephrology transplant fellow at [facility]. Continue with Prograf and prednisone. Level pending. Holding off on CellCept. Strict input for charting. Continue with home dose of sodium bicarbonate. Started on gentle IV hydration as per nephrology today. Continue to monitor. (3) Acute pyelonephritis: Appreciate urine cultures with sensitivities. Switch cefepime to IV ceftriaxone 2 g daily. Follow-up blood cultures. Analgesics as needed (4) Urinary retention: Continue Ledezma catheter (5) Warfarin anticoagulation: Supratherapeutic INR. INR trending down to therapeutic level. Monitor INR daily. Restart warfarin accordingly. (6) Paroxysmal atrial fibrillation: Rate controlled. Found with supratherapeutic INR and elevated digoxin levels. Holding off on warfarin and digoxin for now. Telemetry. (7) Insulin pump in place: Type 2 diabetes mellitus. Appreciate A1c. Pump has run out of insulin. Blood sugars elevated overnight. Start on Lantus 15 units twice daily. Insulin sliding scale at low-dose protocol. Will uptitrate as per insulin requirements. (8) Transplanted kidney: (9) Long-term use of high-risk medication: (10) Elevated digoxin level: Digoxin level persistently elevated in setting of acute kidney injury on end- stage renal disease with renal transplant. Digibind 200 mg IV one-time. Plan Full code Change diet to dialysis diabetic low potassium diet. Supratherapeutic INR will suffice DVT prophylaxis Protonix for PUD prophylaxis. Attestations Medical Necessity Statement*: Requires further hospitalization for management of pyelonephritis with hematuria in a patient with post renal transplant for end-stage renal disease, supratherapeutic INR, digoxin toxicity, uncontrolled hyperglycemia Diagnoses Gross hematuria R31.0 MIREILLE (acute kidney injury) N17.9 Acute pyelonephritis N10 Urinary retention R33.9 Warfarin anticoagulation Z79.01 Paroxysmal atrial fibrillation I48.[address] Z96.41 Transplanted kidney Z94.0 Long-term use of high-risk medication Z79.899 Elevated digoxin level R78.89
[2023-02-12 17:28] LABS: Glucose Point of Care 333 mg/dL (70-110)
[2023-02-12] MEDS: DIGOXIN IMMUNE FAB IV (18:36)
[2023-02-12] MEDS: SODIUM CHLORIDE 0.9% IV (18:36)
[2023-02-12] MEDS: warfarin 3 mg Tablet PO (19:29)
[2023-02-12] MEDS: tamsulosin 0.4 mg Capsule PO (20:48)
[2023-02-12] MEDS: atorvastatin 40 mg Tablet PO (20:49)
[2023-02-12] MEDS: tobramycin 0.3% Op Soln 5 mL Btl 1 DROP XX (20:49)
[2023-02-12 20:59] LABS: Glucose Point of Care 315 mg/dL (70-110)
[2023-02-12] MEDS: insulin glargine 100 units/1 mL 15 UNIT SUBCUT (22:57)
[2023-02-13] VITALS: BP 116/68; PULSE 68; RESP 17; TEMP 36.9; O2SAT 88
[2023-02-13] MEDS: albumin 25 G/100 ML BAG 60 G IV ×2 (02:10→11:46)
[2023-02-13] MEDS: sodium chloride 0.9% 1,000 ML 75 ML IV (02:10)
[2023-02-13 04:00] VITALS: BP 117/53; PULSE 67; RESP 13; TEMP 36.5; O2SAT 94
[2023-02-13 06:14] LABS: Basophils % 0.1 %; Eosinophils # 0.1 10^3/uL (0.0-0.8); Eosinophils % 0.7 %; Hematocrit 28.9 % (37-53); Lymphocytes % 13.6 %; Mean Corpuscular HGB Conc 30.1 g/dL (30-55); Mean Corpuscular Hemoglobin 26.7 pg (27-33); Mean Corpuscular Volume 88.7 fl (82-101); Monocytes # 0.5 10^3/uL (0.2-0.9); Monocytes % 6.5 %; Neutrophils # 5.77 10^3/uL (1.8-7.7); Neutrophils % 78.6 %; Nucleated Red Blood Cells % 0 %; Platelet Count 212 10^3/cmm (157-399); Red Blood Count 3.26 10^6/uL (3.85-5.65); Red Cell Distribution Width 14.1 % (12.1-15.1); White Blood Count 7.35 10^3/uL (3.29-11.43)
[2023-02-13 06:26] LABS: INR 1.92 (0.8-1.2)
[2023-02-13 06:32] LABS: Alanine Aminotransferase 7 U/L (0-41); Albumin Level 3.9 g/dL (3.5-5.2); Alkaline Phosphatase 100 U/L (40-130); Anion Gap 18.4 (5-19); Aspartate Amino Transferase 10 U/L (0-40); Blood Urea Nitrogen 80 mg/dL (8-23); Calcium 9.4 mg/dL (8.5-10.5); Carbon Dioxide 23 mmol/L (22-29); Chloride 103 mmol/L (98-107); Glucose 92 mg/dL (65-115); Osmolality Calculated 314 mOsm/kg (285-295); Potassium 4.4 mmol/L (3.5-5.1); Sodium 140 mmol/L (136-145); Total Bilirubin 0.7 mg/dL (0.15-1.2); Total Protein 5.9 g/dL (6.6-8.7)
[2023-02-13 06:38] LABS: Glucose Point of Care 97 mg/dL (70-110)
[2023-02-13 06:44] LABS: Magnesium 2.4 mg/dL (1.7-2.3); Phosphorus 3.3 mg/dL (2.5-4.5)
[2023-02-13 08:00] VITALS: BP 159/69; PULSE 75; RESP 16; TEMP 36.4; O2SAT 95
[2023-02-13] MEDS: tacrolimus 0.5 mg Capsule 1 MG PO (08:36)
[2023-02-13] MEDS: tacrolimus 0.5 mg Capsule PO (08:36)
[2023-02-13] MEDS: ferrous sulfate EC 325 mg Tablet PO (08:36)
[2023-02-13] MEDS: famotidine 20 mg Tablet PO (08:36)
[2023-02-13] MEDS: predniSONE 5 mg Tablet PO (08:36)
[2023-02-13] MEDS: insulin glargine 100 units/1 mL 15 UNIT SUBCUT (08:37)
[2023-02-13] MEDS: cefTRIAXone 2,000 MG in sodium chloride 0.9% (plus) 50 ML 100 MG IV (08:37)
[2023-02-13] MEDS: cetirizine 10 mg Tablet PO (08:37)
[2023-02-13] MEDS: sodium bicarbonate 650 mg Tablet 1300 MG PO (08:39)
--- NOTE | 2023-02-13 10:09 | PM.PN ---
Subjective Subjective: feels better Medications: Reviewed: Yes Vitals/I&O/Wt Last Vital Signs Temp 97.6 F 02/13/23 08:00 Pulse 75 02/13/23 08:00 Resp 16 02/13/23 08:00 BP 159/69 02/13/23 08:00 Pulse Ox 95 02/13/23 08:00 O2 Del Method Room Air 02/13/23 04:00 O2 Flow Rate 2 02/12/23 08:00 02/12/23 02/13/23 02/13/23 22:59 06:59 14:59 Intake Total 630 / 1620 1073.75 / 2693.75 360 / 360 Output Total 5 / 1975 575 / 2550 Balance -345 / -355 498.75 / 143.75 360 / 360 Weight last 48 hrs Weight 77.791 kg Weight 80.541 kg Physical Exam Narrative: awake ,lert no distress S1 S2 RRR per repor t Lunge clear per report + edema Urinary Catheter Management: Ledezma: Cath Placed During This Visit: yes Reason for Continuing Indwelling Catheter: Accurate Measurement of Urinary Output in Critically Ill Patients Urinary Catheter Date of Insertion: 02/09/23 Urinary Catheter Time of Insertion: 12:40 Data 02/13/23 05:55 02/13/23 05:55 Micro: Microbiology 02/09/23 12:28 Blood Culture - Preliminary Blood Escherichia coli A&P Assessment and plan (1) MIREILLE (acute kidney injury): Plan 1. Acute on chronic kidney disease stage III: Baseline creatinine is 1.5 range. Now has MIREILLE with a creatinine of 3.9, possibly prerenal MIREILLE from decreased p.o. intake and possible ATN in the setting of UTI. -But given rapid rise in creatinine from baseline , in the setting of renal transplant-other possibilities include tacrolimus toxicity and transplant rejection. -Prograf level in range , holding CellCept will give IVFs again today and watch renal function , Cr slightly better @ 3.2 -Agree with transferring for higher level of care for further management of his transplant.may need transplant renal biospy 2. Gross hematuria: Likely from UTI and in the setting of supratherapeutic INR. CT scan did not show evidence of stone. , Hematuria improved now, monitor 3. Paroxysmal A-fib On digoxin, levels still high 4. History of diabetes 5. History of hypertension. Patient evaluated using audiovisual cart. Time spent 20 minutes Attestations Medical Necessity Statement*: per medicine Coding Level of Care Code Acute Code for Chg Fwd Diagnoses MIREILLE (acute kidney injury) N17.9
--- NOTE | 2023-02-13 10:54 | PC.CHAP ---
Pastoral Care Encounter/Spiritual Assessment Type of Contact [x] Declined rounder and backer visit [] Patient/Family/Request visit [] Outpatient visit [] Follow-up visit [] Physician referral [] Code/Alert [] Routine visit [] Staff referral [] Actively dying [] Patient sleeping [] Family support [] [] Out of room [] Palliative care [] [] Receiving care in room [] Pre-surgical visit [] Trauma [] Long length of stay [] ICU visit [] Other: Relational/Emotional Strength [] Patient feels connected with others/family/visitors/staff [] Distress [] Loneliness/isolation [] Abandonment Spirituality of Patient [] Person of [place] [] Attends Hinduism of their [place] [] Believes in Prayer [] Reads Bible or Jewish materials [] There are Spiritual issues to be addressed Deputy Director Of Finance Interventions [] Prayer [] Active listening [] Non-anxious presence [] Spiritual/emotional support [] Crisis/trauma care [] Spiritual counseling [] Bereavement support [] Provided bereavement packet [] Provided Bible/devotional materials [] Provided toy/stuffed animal, coloring book to patient or family member [] Provided Communion [] Anointing/[place] [] Salvation [] Completed spiritual assessment [] Other: Impact on Illness or Injury [] Angry [] Fearful [] Anxious [] Often cries [] Exhaustion [] Unable to work [] Unable to attend congregation [] Unable to walk/stand [] Unable to read [] Unable to drive [] Unable to eat/drink [] Unable to sleep [] Unable to be with family [] Patient intubated [] Other: Summary Declined rounder and backer visit Time spent with patient 5 mins
--- NOTE | 2023-02-13 11:13 | PC.SOCIAL ---
Imm update Imm updated with patient and at bedside. Copy of page 2 provided. Patient and verbalized understanding. Copy in chart initialed, dated and timed.
[2023-02-13 12:00] VITALS: BP 127/52; PULSE 73; RESP 16; TEMP 36.9; O2SAT 94
--- NOTE | 2023-02-13 12:02 | PM.TDS ---
Transfer Summary Providers Date of Admission: 02/10/23 16:38 Date of Discharge/Transfer: 02/13/23 Attending Provider at Admission: Andrea Aguilar MD Attending Provider at Transfer: Sarbjit Gomes MD Consults: Telemetry nephrology Primary Care Provider: Mercy Priest MD Transfer Plans: Anticipated date of transfer: 02/13/23. Diagnoses at Discharge Discharge Diagnosis (1) MIREILLE (acute kidney injury): Status: Acute Reason for Visit Reason for Visit peeing bleed, swollen hands Brief History: History as per HPI: Jaya Kidd Sr is a 77 year old male with a past medical history significant for multiple comorbidities including end-stage renal disease status post left pelvic renal cadaveric transplant on tacrolimus/CellCept/prednisone, bilateral BKAs, type 2 diabetes mellitus on insulin pump and continuous glucose monitoring, and paroxysmal atrial fibrillation on digoxin and warfarin who presents to the emergency department with gross hematuria x2 days.? Endorses associated symptoms of bilateral hand swelling.? Patient reports recent history of supratherapeutic INR recently 8 on Friday.? Patient reports he self caths at home typically about 4 times per day.? He reports that subjectively urinary output seems to have decreased the last day or so.? Endorses chills.? Denies fevers, nausea or emesis. In the ED, patient was found to have multiple derangements on labs.? Labs revealed leukocytosis with white count of 17, supratherapeutic INR of 6.78, elevated BUN of 79, and elevated creatinine of 3.9 (previously 1.5).? Urinalysis with multiple abnormalities.? CT of abdomen and pelvis revealed an enlarged transplanted kidney with moderate surrounding stranding and edema.? There were findings concerning for possible hydronephrosis with pyelonephritis and transplant rejection being at the differential.? Urinary bladder wall was moderately thickened with surrounding stranding and edema concerning for cystitis.? Hounsfield units of the urine was consistent with hematuria.? Follow-up renal ultrasound showed mild caliectasis without matias hydronephrosis.? She was treated with Lasix and ceftriaxone. ED provider, Alek Cuello, reports patient accepted to [facility] however beds not immediately available.? She reports EMTALA has been filled out so whenever bed is available patient will transfer. Hospital Course Hospital Course Patient was admitted to the hospital for further evaluation and management of acute kidney injury on chronic kidney disease, hematuria with concerns for acute pyelonephritis and urinary retention in setting of history of renal transplant on immuno suppressive therapy. He was started on broad-spectrum antibiotics, IV fluids and nephrology was consulted. Patient's transplant medications were managed as per his primary transplant team from [facility]. On admission he was also found to have a supratherapeutic INR and a supratherapeutic digoxin levels. Warfarin and digoxin was withheld. Gradually his INR resolved and with which hematuria also resolved. Patient to continue to have worsening of kidney function. During hospitalization his blood cultures and urine cultures came back positive for E. coli. Antibiotics were changed as per culture sensitivities. Patient has overall received 5 days of culture directed antibiotic therapy. Repeat blood cultures have not been sent so far. Given all of the above and his history of renal transplant transfer was sought to a higher center which is his parent transplant facility. He was accepted at [facility] and is being transferred for further care in hemodynamically stable condition. Physical Exam Narrative: General: Chronically sick appearing, no acute distress, awake and alert x2-3 with occasional Confusion, dehydrated Head:? Normocephalic. Atraumatic. Neck: No JVD. Cardiovascular: No gallops. No murmurs.? No significant edema in hands. Lungs: Breath sounds diminished bilateral bases, no use of accessory muscles, no crackles or wheezes. Skin: No jaundice. No rashes. Abdomen: Normal bowel sounds, abdomen soft. Genito Urinary: Improving gross hematuria. Extremities: No cyanosis or clubbing. 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 No myoclonus Urinary Catheter Management: Ledezma: Cath Placed During This Visit: yes Reason for Continuing Indwelling Catheter: Accurate Measurement of Urinary Output in Critically Ill Patients Urinary Catheter Date of Insertion: 02/09/23 Urinary Catheter Time of Insertion: 12:40 TS Data Studies Completed and Pending Pending at discharge Category Date Time Status Blood Culture Stat Lab 02/09/23 12:28 Results MAG [Magnesium] AM LABS Lab 02/14/23 04:00 Ordered MAG [Magnesium] AM LABS Lab 02/15/23 04:00 Ordered PHOS [Phosphorus] AM LABS Lab 02/14/23 04:00 Ordered PHOS [Phosphorus] AM LABS Lab 02/15/23 04:00 Ordered Prothrombin Time INR AM LABS Lab 02/14/23 04:00 Ordered Prothrombin Time INR AM LABS Lab 02/15/23 04:00 Ordered Labs from last 24 hours 02/13/23 02/13/23 02/13/23 06:28 05:55 05:55 WBC RBC Hgb Hct MCV MCH MCHC RDW Plt Count MPV Neut % (Auto) Lymph % (Auto) Traill % (Auto) Eos % (Auto) Baso % (Auto) Neut # (Auto) Lymph # (Auto) Traill # (Auto) Eos # (Auto) Baso # (Auto) Nucleated RBC % (auto) Nucleated RBCs # PT 22.70 H INR 1.92 H Sodium Potassium Chloride Carbon Dioxide Anion Gap BUN Creatinine GFR Calculation Glucose POC Glucose 97 Calculated Osmolality Calcium Phosphorus 3.3 Magnesium 2.4 H Total Bilirubin AST ALT Alkaline Phosphatase Total Protein Albumin Globulin 02/13/23 02/13/23 02/12/23 05:55 05:55 20:55 WBC 7.35 RBC 3.26 L Hgb 8.70 L Hct 28.9 L MCV 88.7 MCH 26.7 L MCHC 30.1 RDW 14.1 Plt Count 212 MPV 10.0 Neut % (Auto) 78.6 Lymph % (Auto) 13.6 Traill % (Auto) 6.5 Eos % (Auto) 0.7 Baso % (Auto) 0.1 Neut # (Auto) 5.77 Lymph # (Auto) 1.0 Traill # (Auto) 0.5 Eos # (Auto) 0.1 Baso # (Auto) 0.0 Nucleated RBC % (auto) 0 Nucleated RBCs # 0.0 PT INR Sodium 140 Potassium 4.4 Chloride 103 Carbon Dioxide 23 Anion Gap 18.4 BUN 80 H Creatinine 3.2 H GFR Calculation Not Reportable Glucose 92 POC Glucose 315 H Calculated Osmolality 314 H Calcium 9.4 Phosphorus Magnesium Total Bilirubin 0.7 AST 10 ALT 7 Alkaline Phosphatase 100 Total Protein 5.9 L Albumin 3.9 Globulin 2.0 02/12/23 17:20 WBC RBC Hgb Hct MCV MCH MCHC RDW Plt Count MPV Neut % (Auto) Lymph % (Auto) Traill % (Auto) Eos % (Auto) Baso % (Auto) Neut # (Auto) Lymph # (Auto) Traill # (Auto) Eos # (Auto) Baso # (Auto) Nucleated RBC % (auto) Nucleated RBCs # PT INR Sodium Potassium Chloride Carbon Dioxide Anion Gap BUN Creatinine GFR Calculation Glucose POC Glucose 333 H Calculated Osmolality Calcium Phosphorus Magnesium Total Bilirubin AST ALT Alkaline Phosphatase Total Protein Albumin Globulin Completed Studies During Hospitalization Category Date Time Status CT kidney stone 66333 Stat Cat Scan 02/09/23 12:18 Completed XR chest 1V portable [id number] Stat Exams 02/09/23 09:55 Completed US renal BI* [id number] Stat Ultrasound 02/09/23 14:56 Completed Laboratory Last Values WBC 7.35 10^3/uL (3.29-11.43) 02/13/23 05:55 RBC 3.26 10^6/uL (3.85-5.65) L 02/13/23 05:55 Hgb 8.70 g/dL (11.27-16.99) L 02/13/23 05:55 Hct 28.9 % (37-53) L 02/13/23 05:55 MCV 88.7 fl (82-101) 02/13/23 05:55 MCH 26.7 pg (27-33) L 02/13/23 05:55 MCHC 30.1 g/dL (30-55) 02/13/23 05:55 RDW 14.1 % (12.1-15.1) 02/13/23 05:55 Plt Count 212 10^3/cmm (157-399) 02/13/23 05:55 MPV 10.0 fL (7.4-10.4) 02/13/23 05:55 Neut % (Auto) 78.6 % 02/13/23 05:55 Lymph % (Auto) 13.6 % 02/13/23 05:55 Traill % (Auto) 6.5 % 02/13/23 05:55 Eos % (Auto) 0.7 % 02/13/23 05:55 Baso % (Auto) 0.1 % 02/13/23 05:55 Neut # (Auto) 5.77 10^3/uL (1.8-7.7) 02/13/23 05:55 Lymph # (Auto) 1.0 10^3/uL (0.8-4.8) 02/13/23 05:55 Traill # (Auto) 0.5 10^3/uL (0.2-0.9) 02/13/23 05:55 Eos # (Auto) 0.1 10^3/uL (0.0-0.8) 02/13/23 05:55 Baso # (Auto) 0.0 10^3/uL (0.0-0.1) 02/13/23 05:55 Nucleated RBC % (auto) 0 % 02/13/23 05:55 Nucleated RBCs # 0.0 /100WBC 02/13/23 05:55 PT 22.70 SECONDS (12.1-14.9) H 02/13/23 05:55 INR 1.92 (0.8-1.2) H 02/13/23 05:55 Sodium 140 mmol/L (136-145) 02/13/23 05:55 Potassium 4.4 mmol/L (3.5-5.1) 02/13/23 05:55 Chloride 103 mmol/L (98-107) 02/13/23 05:55 Carbon Dioxide 23 mmol/L (22-29) 02/13/23 05:55 Anion Gap 18.4 (5-19) 02/13/23 05:55 BUN 80 mg/dL (8-23) H 02/13/23 05:55 Creatinine 3.2 mg/dL (0.7-1.2) H 02/13/23 05:55 GFR Calculation Not Reportable 02/13/23 05:55 Glucose 92 mg/dL (65-115) 02/13/23 05:55 POC Glucose 97 mg/dL (70-110) 02/13/23 06:28 Calculated Osmolality 314 mOsm/kg (285-295) H 02/13/23 05:55 Calcium 9.4 mg/dL (8.5-10.5) 02/13/23 05:55 Phosphorus 3.3 mg/dL (2.5-4.5) 02/13/23 05:55 Magnesium 2.4 mg/dL (1.7-2.3) H 02/13/23 05:55 Total Bilirubin 0.7 mg/dL (0.15-1.2) 02/13/23 05:55 AST 10 U/L (0-40) 02/13/23 05:55 ALT 7 U/L (0-41) 02/13/23 05:55 Alkaline Phosphatase 100 U/L (40-130) 02/13/23 05:55 Troponin T Gen 5 ng/L 199 ng/L (0-15) H* 02/09/23 10:04 Troponin T 120 Minute 188.9 ng/L (0-15) H 02/09/23 11:57 Delta Troponin T -10.1 ABS# (0-10) L 02/09/23 11:57 Troponin T Hi Sens 6Hr 177.3 ng/L (0-15) H 02/09/23 16:16 Troponin T Hi Sens 6Hr Delta -21.7 ng/L (0-12) L 02/09/23 16:16 NT-Pro-B Natriuret Pep 65609 pg/mL (0-450) H 02/09/23 10:04 Total Protein 5.9 g/dL (6.6-8.7) L 02/13/23 05:55 Albumin 3.9 g/dL (3.5-5.2) 02/13/23 05:55 Globulin 2.0 g/dL (1.3-4.6) 02/13/23 05:55 Procalcitonin 1.22 ng/mL (0-0.5) H 02/09/23 16:16 Urine Color Red (Yellow) 02/09/23 10:57 Urine Appearance Hazy (CLEAR) A 02/09/23 10:57 Urine pH 6.5 (5-7) 02/09/23 10:57 Ur Specific [place] 1.010 (1.005-1.030) 02/09/23 10:57 Urine Protein 2+ (Negative) H 02/09/23 10:57 Urine Glucose (UA) Norm (Normal) 02/09/23 10:57 Urine Ketones Negative (Negative) 02/09/23 10:57 Urine Blood 3+ (Negative) H 02/09/23 10:57 Urine Nitrate Negative (Negative) 02/09/23 10:57 Urine Bilirubin Neg (Negative) 02/09/23 10:57 Urine Urobilinogen 1 mg/dL (Negative) H 02/09/23 10:57 Ur Leukocyte Esterase 2+ (Negative) H 02/09/23 10:57 Urine RBC Too numerous to cnt /hpf (0-2) H 02/09/23 10:57 Urine WBC 25-40 /hpf (0-5) H 02/09/23 10:57 Ur Squamous Epith Cells None /hpf (0-5) 02/09/23 10:57 Amorphous Sediment Not Reportable 02/09/23 10:57 Urine Bacteria 2+ /hpf (NONE) H 02/09/23 10:57 Digoxin 2.5 ng/mL (0.6-1.2) H* 02/12/23 06:45 Tacrolimus (FK 506) 6.7 mcg/L 02/10/23 03:35 Radiology Impressions Chest X-Ray 02/09/23 09:55 IMPRESSION: 1. Stable mild cardiomegaly. 2. Chronic blunting of the right costophrenic angle may be due to scarring or chronic small pleural effusion. 3. No significant airspace consolidation. Abdomen/Pelvis CT 02/09/23 12:18 IMPRESSION: 1. Transplant kidney in the left lower quadrant appears enlarged, with moderate surrounding stranding and edema. This kidney now measures up to 10.3 cm in anterior-posterior length; previously measuring up to 8.7 cm on 03/19/2021 when measured in similar dimensions. The transplant ureter is hazy and poorly visualized, which is unchanged from 03/19/2021. This does, however, raise concern for hydronephrosis of the transplant kidney. Pyelonephritis, transplant rejection, and hydronephrosis are within the differential. Recommend renal ultrasound of the transplant kidney for further evaluation of the renal parenchyma and for potential hydronephrosis. 2. Urinary bladder demonstrates moderate wall thickening and mild surrounding stranding/edema. This may be secondary to nondistention and small volume ascites, but is concerning for cystitis. Fluid within the anterior urinary bladder measures approximately 35-40 Hounsfield units, consistent with hematuria. Renal Ultrasound 02/09/23 14:56 IMPRESSION: Mild caliectasis without matias hydronephrosis of the transplant kidney. Microbiology 02/09/23 12:28 Blood Blood Culture - Preliminary Escherichia coli 02/09/23 10:57 Urine,Clean Catch Urine Culture - Final Escherichia coli 02/09/23 12:23 Blood Blood Culture - Preliminary Escherichia coli Recent Clincial Data Last Vital Signs Temp 97.6 F 02/13/23 08:00 Pulse 75 02/13/23 08:00 Resp 16 02/13/23 08:00 BP 159/69 02/13/23 08:00 Pulse Ox 95 02/13/23 08:00 O2 Del Method Room Air 02/13/23 04:00 O2 Flow Rate 2 02/12/23 08:00 Vital Signs Temp Pulse Resp BP Pulse Ox O2 Del Method 02/13/23 08:00 97.6 F 75 16 159/69 95 02/13/23 04:00 97.7 F 67 13 117/53 94 Room Air Intake & Output/Weight 02/11/23 02/12/23 02/13/23 02/14/23 06:59 06:59 06:59 06:59 Intake Total 2021.667 / 2021.667 2170 / 2170 2693.75 / 2693.75 410 / 410 Output Total 1350 / 1350 325 / 325 2550 / 2550 Balance 671.667 / 535.443 6938 / 1845 143.75 / 143.75 410 / 410 Weight 80.541 kg 77.791 kg Vitals Last Vital Signs Temp 97.6 F 02/13/23 08:00 Pulse 75 02/13/23 08:00 Resp 16 02/13/23 08:00 BP 159/69 02/13/23 08:00 Pulse Ox 95 02/13/23 08:00 O2 Del Method Room Air 02/13/23 04:00 O2 Flow Rate 2 02/12/23 08:00 TS Medications Medications Acetaminophen (Acetaminophen 325 Mg Tablet) 650 mg PO Q6H PRN PRN Reason: Mild/Mod Pain Or Temp >/= 101 Last Admin: 02/12/23 14:52 Dose: 650 mg Atorvastatin Calcium (Atorvastatin 40 Mg Tablet) 40 mg PO BEDTIME@ [facility] Last Admin: 02/12/23 20:49 Dose: 40 mg Cetirizine HCl (Cetirizine 10 Mg Tablet) 10 mg PO DAILY@ [facility] Last Admin: 02/13/23 08:37 Dose: 10 mg Famotidine (Famotidine 20 Mg Tablet) 20 mg PO DAILY@ [facility] [place] Last Admin: 02/13/23 08:36 Dose: 20 mg Ferrous Sulfate (Ferrous Sulfate Ec 325 Mg Tablet) 325 mg PO DAILY@ [facility] Last Admin: 02/13/23 08:36 Dose: 325 mg Albumin Human (Albumin) 25 g in 100 mls @ 60 mls/hr IV Q8H [facility] [place] Last Admin: 02/13/23 11:46 Dose: 60 mls/hr Sodium Chloride (Sodium Chloride 0.9%) 1,000 mls @ 75 mls/hr IV .[id number] [facility] [place] Last Admin: 02/13/23 02:10 Dose: 75 mls/hr Ceftriaxone Sodium 2,000 mg/ (Sodium Chloride) 50 mls @ 100 mls/hr IV Q24H [facility] [place] Last Infusion: 02/13/23 10:12 Dose: Infused Insulin Glargine (Insulin Glargine 100 Units/1 Ml) 15 unit SUBCUT BID@0900,2100 [facility] [place] Last Admin: 02/13/23 08:37 Dose: 15 unit Insulin Human Lispro (Insulin Lispro 100 Unit/1 Ml) 0 unit SUBCUT WM&BEDTIME [facility] [place]; Protocol Last Admin: 02/13/23 08:37 Dose: Not Given Prednisone (Prednisone 5 Mg Tablet) 5 mg PO DAILY@0900 [facility] [place] Last Admin: 02/13/23 08:36 Dose: 5 mg Sodium Bicarbonate (Sodium Bicarbonate 650 Mg Tablet) 1,300 mg PO TID@ [facility] Last Admin: 02/13/23 08:39 Dose: 1,300 mg Tacrolimus (Tacrolimus 0.5 Mg Capsule) 1 mg PO BID [facility] [place] Last Admin: 02/13/23 08:36 Dose: 1 mg Tacrolimus (Tacrolimus 0.5 Mg Capsule) 0.5 mg PO DAILY [facility] [place] Last Admin: 02/13/23 08:36 Dose: 0.5 mg Tamsulosin HCl (Tamsulosin 0.4 Mg Capsule) 0.4 mg PO BEDTIME@2100 [facility] [place] Last Admin: 02/12/23 20:48 Dose: 0.4 mg Tobramycin Sulfate (Tobramycin 0.3% Op Soln 5 Ml Btl) 1 drop XX BEDTIME [facility] [place] Last Admin: 02/12/23 20:49 Dose: 1 drop Tramadol HCl (Tramadol 50 Mg Tablet) 50 mg PO BID PRN PRN Reason: pain Last Admin: 02/10/23 09:55 Dose: 50 mg Warfarin Sodium (Warfarin 3 Mg Tablet) 3 mg PO DAILY@1400 [facility] [place] Last Admin: 02/12/23 19:29 Dose: 3 mg Discontinued Medications Furosemide (Furosemide 10 Mg/Ml Sdv 4ml) 40 mg IVP ONCE ONE Stop: 02/09/23 12:13 Last Admin: 02/09/23 13:01 Dose: 40 mg Ceftriaxone Sodium 1,000 mg/ (Sodium Chloride) 50 mls @ 100 mls/hr IV ONCE ONE; Protocol Stop: 02/09/23 13:18 Last Infusion: 02/09/23 18:16 Dose: Infused Cefepime HCl 1,000 mg/ Sodium (Chloride) 50 mls @ 100 mls/hr IV Q24H GLADIS; Protocol Stop: 02/16/23 18:29 Last Infusion: 02/11/23 18:06 Dose: Infused Sodium Chloride (Sodium Chloride 0.9%) 1,000 mls @ 50 mls/hr IV .Q20H [facility]ADIS Stop: 02/11/23 06:00 Last Infusion: 02/11/23 05:51 Dose: Infused Sodium Chloride (Sodium Chloride 0.9%) 500 mls @ 50 mls/hr IV .Q10H [facility] [place] Last Infusion: 02/12/23 02:32 Dose: Infused Ceftriaxone Sodium 1,000 mg/ (Sodium Chloride) 50 mls @ 100 mls/hr IV Q24H GLADIS; Protocol Last Infusion: 02/12/23 13:53 Dose: Infused Digoxin Immune GIORGIO 80 mg/ (Sodium Chloride) 50 mls @ 100 mls/hr IV ONCE ONE Stop: 02/12/23 17:29 Last Infusion: 02/12/23 19:10 Dose: Infused Insulin Glargine (Insulin Glargine 100 Units/1 Ml) 20 unit SUBCUT BID@0900,2100 [facility] Last Admin: 02/12/23 14:09 Dose: 20 unit Tramadol HCl (Tramadol 50 Mg Tablet) 50 mg PO ONCE ONE Stop: 02/09/23 19:46 Last Admin: 02/09/23 19:55 Dose: 50 mg Allergies sulfamethoxazole [From Sulfamethoxazole-Trimethoprim] Adverse Reaction (Intermediate, Verified 02/09/23 10:23) acute kidney injury and high INR If need to prescribe Bactrim, must monitor renal function, postassium and inr, use for shortest duration possible trimethoprim [From Sulfamethoxazole-Trimethoprim] Adverse Reaction (Intermediate, Verified 02/09/23 10:23) acute kidney injury and high INR If need to prescribe Bactrim, must monitor renal function, postassium and inr, use for shortest duration possible Home Medications cetirizine 10 mg tablet (All Day Allergy (cetirizine)) 10 mg PO DAILY@09/02/19 [History Confirmed 02/09/23] cholecalciferol (vitamin D3) 75 mcg (3,000 unit) tablet 3,000 unit PO DAILY@0900 09/02/19 [History Confirmed 02/09/23] prednisone 5 mg tablet 5 mg PO DAILY@0900 09/02/19 [History Confirmed 02/09/23] sodium bicarbonate 650 mg tablet 1,300 mg PO TID@,,11/03/20 [History Confirmed 02/09/23] aspirin 81 mg tablet,delayed release (Adult Low Dose Aspirin) 81 mg PO DAILY@05/25/21 [History Confirmed 02/09/23] furosemide 20 mg tablet 20 mg PO DAILY PRN Edema 05/25/21 [History Confirmed 02/09/23] digoxin 125 mcg (0.125 mg) tablet 125 mcg PO DAILY@0900 90 days #90 tabs 04/08/22 [Rx Confirmed 02/09/23] hydralazine 100 mg tablet 100 mg PO TID@ #270 tabs 04/10/22 [Rx Confirmed 02/09/23] hydrochlorothiazide 25 mg tablet 25 mg PO DAILY@09 #90 tabs 04/10/22 [Rx Confirmed 02/09/23] amlodipine 5 mg tablet 10 mg PO DAILY@0900 #180 tabs 06/19/22 [Rx Confirmed 02/09/23] insulin aspart U-100 100 unit/mL subcutaneous solution (Novolog U-100 Insulin aspart) 1 sliding scale dose .Route .COMPLEX 30 days #10 mL 08/20/22 [Rx Confirmed 02/09/23] tramadol 50 mg tablet 50 mg PO BID PRN pain #45 tabs 10/07/22 [Rx Confirmed 02/09/23] tamsulosin 0.4 mg capsule 0.4 mg PO BEDTIME@2100 #90 caps 11/05/22 [Rx Confirmed 02/09/23] atorvastatin 20 mg tablet 20 mg PO BEDTIME@02/09/23 [History Confirmed 02/09/23] famotidine 20 mg tablet (Pepcid) 20 mg PO DAILY@02/09/23 [History Confirmed 02/09/23] ferrous sulfate 325 mg (65 mg iron) tablet 325 mg PO DAILY@02/09/23 [History Confirmed 02/09/23] mycophenolate mofetil 250 mg capsule 500 mg PO BID@09,21 02/09/23 [History Confirmed 02/09/23] tacrolimus 0.5 mg capsule, immediate-release See Rx Instructions .Route .COMPLEX 02/09/23 [History Confirmed 02/09/23] tacrolimus 1 mg capsule, immediate-release 1 mg PO BID 02/09/23 [History Confirmed 02/09/23] tobramycin 0.3 % eye drops 1 drp ophthalmic (eye) BEDTIME 02/09/23 [History Confirmed 02/09/23] warfarin 5 mg tablet 5 mg PO DAILY 02/09/23 [History Confirmed 02/09/23] Discharge Plan Discharge Patient Disposition: Xfer Other Condition: Stable Prescriptions: No Action prednisone 5 mg tablet 5 mg PO DAILY@0900 cholecalciferol (vitamin D3) 3,000 unit tablet 3,000 unit PO DAILY@0900 cetirizine [All Day Allergy (cetirizine)] 10 mg tablet 10 mg PO DAILY@09 aspirin [Adult Low Dose Aspirin] 81 mg tablet,delayed release (DR/EC) 81 mg PO DAILY@09 furosemide 20 mg tablet 20 mg PO DAILY PRN (Reason: Edema) tramadol 50 mg tablet 50 mg PO BID PRN (Reason: pain) Qty: 45 1RF digoxin 125 mcg (0.125 mg) tablet 125 mcg PO DAILY@0900 90 Days Qty: 90 3RF Hold Instructions: Resume on 08/22/21. hydrochlorothiazide 25 mg tablet 25 mg PO DAILY@09 Qty: 90 3RF hydralazine 100 mg tablet 100 mg PO TID@,15, Qty: 270 2RF amlodipine 5 mg tablet 10 mg PO DAILY@0900 Qty: 180 2RF insulin aspart U-100 [Novolog U-100 Insulin aspart] 100 unit/mL solution 1 sliding scale dose .ROUTE .COMPLEX 30 Days Qty: 10 6RF Rx Instructions: use with insulin pump as directed on sliding scale tamsulosin 0.4 mg capsule 0.4 mg PO BEDTIME@2100 Qty: 90 2RF sodium bicarbonate 650 mg tablet 1,300 mg PO TID@,15,21 atorvastatin 20 mg tablet 20 mg PO BEDTIME@21 Pepcid 20 mg Tablet 20 mg PO DAILY@09 tobramycin 0.3 % drops 1 drp ophthalmic (eye) BEDTIME tacrolimus 1 mg capsule 1 mg PO BID tacrolimus 0.5 mg capsule See Rx Instructions .ROUTE .COMPLEX Rx Instructions: TAKE ONE CAPSULE BY MOUTH EVERY MORNING WITH A 1 MG CAP FOR A TOTAL OF 1.5MG IN THE AM mycophenolate mofetil 250 mg capsule 500 mg PO BID@, ferrous sulfate 325 mg (65 mg iron) tablet 325 mg PO DAILY@09 warfarin 5 mg tablet 5 mg PO DAILY Discharge Orders: Transfer Out of Facility (Order); Ordered 02/13/23 Ordered By: Sarbjit Gomes Referrals: Mercy Priest MD [Primary Care Provider] - Discharge Diet: As Directed Discharge Activity: Resume usual activity and Increase activity as tolerated Patient Instructions: Opioid Safety Transfer Attestations Time Spent in Transfer Care: greater than 30 min Specific Discharge Activities: educating patient, educating and/or supporting family/caregiver, discussing with pcp/other providers, discussing with top case assembler/social workers/dc planners, documenting/other paperwork and evaluating patient/reviewing data Quality Metrics Clinical Quality Measures [ No reported AMI, CVA or VTE this stay] Coding Level of Care Code 92604 Total time (in minutes) for Discharge: 60 Diagnoses MIREILLE (acute kidney injury) N17.9
[2023-02-13 12:07] LABS: Glucose Point of Care 182 mg/dL (70-110)
[2023-02-13] MEDS: insulin lispro 100 unit/1 mL SUBCUT (12:40)
== END 2023-02-13 14:40 | disposition short-term general hospital (02) | DRG 683 ==
LOC: ER 20:00 → CSU 20:02 → MEDSURG 02-12 02:11
PROVIDERS: Hospitalist; Admitting Provider Internal Medicine; Emergency Provider Nurse Practitioner; PCP Family Medicine; Visit Provider Student in an Organized Health Care Education/Training Program
DX: N17.9 Acute kidney failure, unspecified (principal); N39.0 Urinary tract infection, site not specified; Z94.0 Kidney transplant status; N10 Acute pyelonephritis; E11.22 Type 2 diabetes mellitus with diabetic chronic kidney disease; E11.65 Type 2 diabetes mellitus with hyperglycemia; I12.9 Hypertensive chronic kidney disease with stage 1 through stage 4 chronic kidney disease, or unspecified chronic kidney disease; N18.30 Chronic kidney disease, stage 3 unspecified; E11.51 Type 2 diabetes mellitus with diabetic peripheral angiopathy without gangrene; B96.20 Unspecified Escherichia coli [E. coli] as the cause of diseases classified elsewhere; Z79.899 Other long term (current) drug therapy; Z79.69 Long term (current) use of other immunomodulators and immunosuppressants; Z89.512 Acquired absence of left leg below knee; Z89.511 Acquired absence of right leg below knee; Z96.41 Presence of insulin pump (external) (internal); I48.0 Paroxysmal atrial fibrillation; R31.0 Gross hematuria; R79.1 Abnormal coagulation profile; Z88.2 Allergy status to sulfonamides; Z79.82 Long term (current) use of aspirin; Z79.891 Long term (current) use of opiate analgesic; Z87.891 Personal history of nicotine dependence; Z98.62 Peripheral vascular angioplasty status; N40.1 Benign prostatic hyperplasia with lower urinary tract symptoms; R33.8 Other retention of urine; R39.14 Feeling of incomplete bladder emptying; E78.5 Hyperlipidemia, unspecified; Z86.16 Personal history of COVID-19; I25.10 Atherosclerotic heart disease of native coronary artery without angina pectoris; Z95.1 Presence of aortocoronary bypass graft; D63.1 Anemia in chronic kidney disease; Z79.01 Long term (current) use of anticoagulants
CPT/HCPCS: 36415; 36416; 51702; 71045; 74176; 76770; 80053; 80162; 80197; 81001; 81015; 82962; 83735; 83880; 84100; 84145; 84484; 85025; 85610; 87040; 87077; 87086; 87150; 87186; 87205; 93005; 96365; 96366; 96367; 96372; 96375; 96376; 99291; G0378; J0692; J0696; J1162; J1815; J1940; J7030; J7040; J7507; J7512; P9046; Q3014

== ENCOUNTER → 2023-02-26 08:52 | Outpatient (BNVA) | payer MEDICARE, OTHER, SELFPAY | PROVIDERS: PCP Family Medicine; Visit Provider Anesthesiology Pain Medicine | DX: M47.816 Spondylosis without myelopathy or radiculopathy, lumbar region; M54.2 Cervicalgia; M54.6 Pain in thoracic spine | CPT/HCPCS: 99214 ==

== ENCOUNTER → 2023-03-04 11:58 | Outpatient (BNVA) | payer MEDICARE, OTHER, SELFPAY | PROVIDERS: PCP Family Medicine; Visit Provider Family Medicine | DX: Z94.0 Kidney transplant status (principal); I48.0 Paroxysmal atrial fibrillation | CPT/HCPCS: 80053; 85025 ==

== ENCOUNTER → 2023-03-19 09:25 | Outpatient (BNVA) | payer MEDICARE, OTHER, SELFPAY | PROVIDERS: PCP Family Medicine; Visit Provider Anesthesiology Pain Medicine | DX: M79.18 Myalgia, other site (principal); M47.816 Spondylosis without myelopathy or radiculopathy, lumbar region; M54.2 Cervicalgia | CPT/HCPCS: 20553; 99214; J1030; J3490 ==

== ENCOUNTER → 2023-03-20 14:22 | Outpatient (BNVA) | payer MEDICARE, OTHER, SELFPAY | PROVIDERS: PCP Family Medicine; Visit Provider Family Medicine | DX: E55.9 Vitamin D deficiency, unspecified (principal); N18.32 Chronic kidney disease, stage 3b; D63.1 Anemia in chronic kidney disease; Z94.0 Kidney transplant status | CPT/HCPCS: 86140; 86664; 86665 ==

== ENCOUNTER → 2023-03-26 10:02 | Outpatient (BNVA) | payer MEDICARE, OTHER, SELFPAY | PROVIDERS: PCP Family Medicine; Visit Provider Family Medicine | DX: N18.2 Chronic kidney disease, stage 2 (mild) (principal) | CPT/HCPCS: 80069; 80197; 82310; 82570; 83735; 83970; 84156; 85025 ==

== ENCOUNTER → 2023-04-09 08:26 | Outpatient (BNVA) | payer MEDICARE, OTHER, SELFPAY | PROVIDERS: PCP Family Medicine; Visit Provider Family Medicine | DX: Z94.0 Kidney transplant status (principal); Z79.899 Other long term (current) drug therapy | CPT/HCPCS: 80048; 80053; 80061; 80069; 80197; 81000; 82306; 82570; 83036; 83735; 84156; 84550; 85025; 86140 ==

== ENCOUNTER → 2023-04-24 09:01 | Outpatient (BNVA) | payer MEDICARE, OTHER, SELFPAY | PROVIDERS: PCP Family Medicine; Visit Provider Family Medicine | DX: Z94.0 Kidney transplant status (principal); Z79.899 Other long term (current) drug therapy | CPT/HCPCS: 80053; 80061; 80197; 81000; 82310; 82570; 83735; 83970; 84156; 84550; 85025 ==

== ENCOUNTER 2023-05-13 13:48 | Emergency (ER) | payer MEDICARE, OTHER, SELFPAY ==
[2023-05-13 14:00] VITALS: BP 83/37; PULSE 114; RESP 16; TEMP 36.7; O2SAT 100; BMI 25.8
--- NOTE | 2023-05-13 15:01 | ED_ITS ---
HPI - Dental/Oral General: Chief complaint: Dental/Oral Stated complaint: tooth pain, lump in mouth Time Seen by Provider: 05/13/23 14:50 Source: patient Mode of arrival: ambulatory History of Present Illness: 77-year-old male comes in complaining of left maxillary posterior tooth pain. He had a significant mount of swelling was seen last week started on Augmentin he still has a little bit of swelling and discomfort but it is significantly improved he has a day or 2 left of his Augmentin he is going to be seeing a dentist in about a week and 1/2 to 2 weeks he was concerned and wanted to have it rechecked denies fever sweats or chills. MD Complaint: tooth pain Onset (ago): week(s) Duration: intermittent Severity: mild Relieving factors: nothing Exacerbating factors: chewing and cold Associated symptoms: Denies ear or mastoid pain, fever(s), gum swelling, odynophagia, sore throat or tongue swelling Review of Systems Const: Denies: fever(s) or chills ENMT: Reports: dental pain; Denies: odynophagia or ear or mastoid pain Card: Denies: chest pain Resp: Denies: dyspnea GI: Denies: abdominal pain : Denies: dysuria, urinary frequency or urinary urgency Musc: Denies: neck pain or back pain Skin/Breast: Denies: rash All/Imm: Denies: tongue swelling PFSH ED PFSH: Medical History Acute on chronic kidney failure [place]LE (acute kidney injury) Anemia Aortic root enlargement Arteriovenous fistula of right upper extremity CAD (coronary artery disease) Chronic kidney disease COVID-19 Had twice 09/2020 and 07/2021 COVID-19 vaccine administered moderna x 2 doses Dehydration Diabetes Type 2, with insulin pump and continuous glucose monitoring, history of DKA when insulin pump not utilized Diabetic ulcer of foot associated with diabetes mellitus due to underlying condition, with fat layer exposed Diarrhea Digoxin toxicity Dyslipidemia Elevated C-reactive protein (CRP) Elevated troponin 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 Essential hypertension Facet arthritis, degenerative, 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 Hyperkalemia Hypertension Incomplete bladder emptying Insulin pump in place Long-term use of high-risk medication cellcept, tacrolimus, and chronic prednisone for transplant status Paroxysmal atrial fibrillation Peripheral artery disease Pressure ulcer of right foot Prostatic enlargement Recurrent UTI Sleep apnea SVT (supraventricular tachycardia) Urinary retention Urolithiasis Warfarin anticoagulation Surgical History History of angioplasty of peripheral vessel (~10/2020) History of arthroscopy of both knees History of cystoscopy History of hand surgery (~2018) right thumb History of neck surgery C6 corpectomy, C5-6, C6-7 anterior discectomy, C5-C7 plate and screw fixation, C5-C7 fusion History of partial amputation of toe of right foot (~2010) right 5th History of repair of right rotator cuff History of selective injection of anesthetic agent around lumbar nerve root L3,4,5 left and right 05/2021 History of shoulder surgery History of tonsillectomy (~2012) Hx of amputation below knee (~2018) Hx of appendectomy Hx of CABG (~2005) Hx of kidney transplant (~2011) [facility] Other postprocedural status radiofrequency ablation right L2-5 08/2019 radiofrequency ablation right L3-S1 06/2021 radiofrequency ablation left L3- S1 07/2021 Status post epidural steroid injection L4-5 right 11/2019 L3,4,5 left and right 05/2021 Transplanted kidney Family History Mother , AT AGE 94 Heart attack Father , AT AGE 45 MVA (motor vehicle accident) Other CAD (coronary artery disease) Cancer Diabetes Hypertension Social History Smoking and tobacco/nicotine status: former use of tobacco/nicotine Alcohol intake: current Alcohol intake frequency: holidays/special occasions only Substance/Drug Use: never Adopted: No Household members: spouse Marital status: Current occupational status: retired and disabled Physical Exam Const: COMMON NORMALS: no acute distress GENERAL APPEARANCE: cooperative and comfortable ORIENTATION/CONSCIOUSNESS: Yes awake, Yes oriented to person, Yes oriented to place and Yes oriented to time HENMT: COMMON NORMALS: normocephalic, atraumatic and hearing grossly normal bilaterally HEAD & SCALP: normocephalic and atraumatic OTHER: Right posterior maxillary molar is mildly inflamed no redness no palpable abscess is mildly tender to the gumline no pointed areas of abscess. Resp: COMMON NORMALS: normal respiratory effort, No retractions, No use of accessory muscles and clear to auscultation bilaterally AUSCULTATION: clear to auscultation bilaterally Cardio: COMMON NORMALS: regular rate, regular rhythm and No murmurs present (Cardio) RATE: regular rate RHYTHM: regular rhythm Extremity: OTHER: Bilateral below the knee amputations Neuro: SENSORIUM/ORIENTATION: Yes oriented to person, Yes oriented to place and Yes oriented to time Course Vital Signs: Vital signs: Vital Signs Temperature 98.0 F 05/13/23 14:00 Pulse Rate 114 H 05/13/23 14:00 Respiratory Rate 16 05/13/23 14:00 Blood Pressure 83/37 05/13/23 14:00 Pulse Oximetry 100 05/13/23 14:00 Oxygen Delivery Me thod Room Air 05/13/23 14:00 MDM - Dental/Oral Medical Decision Making Continue antibiotics gave patient 5 more days. Can use moist heat to the area for comfort. Follow-up with a dentist as soon as able Medical Records I reviewed the patient's medical records. Lab Data I reviewed the patient's lab results. No radiology studies performed this visit Discharge Plan Discharge Patient Disposition: Home Clinical Impression: Dental abscess Condition: Stable Prescriptions: New Augmentin 500-125 mg tablet 1 tab PO TID Qty: 15 0RF No Action prednisone 5 mg tablet 5 mg PO DAILY@0900 cholecalciferol (vitamin D3) 3,000 unit tablet 3,000 unit PO DAILY@0900 cetirizine [All Day Allergy (cetirizine)] 10 mg tablet 10 mg PO DAILY@09 aspirin [Adult Low Dose Aspirin] 81 mg tablet,delayed release (DR/EC) 81 mg PO DAILY@09 furosemide 20 mg tablet 20 mg PO DAILY PRN (Reason: Edema) tramadol 50 mg tablet 50 mg PO BID PRN (Reason: pain) Qty: 45 1RF hydrochlorothiazide 25 mg tablet 25 mg PO DAILY@09 Qty: 90 3RF insulin aspart U-100 [Novolog U-100 Insulin aspart] 100 unit/mL solution 1 sliding scale dose .ROUTE .COMPLEX 30 Days Qty: 10 6RF Rx Instructions: use with insulin pump as directed on sliding scale tamsulosin 0.4 mg capsule 0.4 mg PO BEDTIME@2100 Qty: 90 2RF amlodipine 5 mg tablet 10 mg PO DAILY@0900 Qty: 180 2RF digoxin 125 mcg (0.125 mg) tablet 125 mcg PO DAILY@0900 90 Days Qty: 90 3RF Hold Instructions: Resume on 08/22/21. sodium bicarbonate 650 mg tablet 1,300 mg PO TID@,, Qty: 360 0RF hydralazine 100 mg tablet 100 mg PO TID@,, Qty: 270 0RF Rx Instructions: MUST MAKE APPOINTMENT AND BE SEEN FOR FURTHER REFILLS. atorvastatin 20 mg tablet 20 mg PO BEDTIME@21 Pepcid 20 mg Tablet 20 mg PO DAILY@09 tobramycin 0.3 % drops 1 drp ophthalmic (eye) BEDTIME tacrolimus 1 mg capsule 1 mg PO BID tacrolimus 0.5 mg capsule See Rx Instructions .ROUTE .COMPLEX Rx Instructions: TAKE ONE CAPSULE BY MOUTH EVERY MORNING WITH A 1 MG CAP FOR A TOTAL OF 1.5MG IN THE AM ferrous sulfate 325 mg (65 mg iron) tablet 325 mg PO DAILY@09 warfarin 5 mg tablet 5 mg PO DAILY Discharge Orders: Discharge ED (Routine); Ordered 05/13/23 Ordered By: Heath Saaverda Referrals: Mercy Priest MD [Primary Care Provider] - Discharge Diet: Usual diet Discharge Activity: Resume usual activity Patient Instructions: Opioid Safety, Pain Management Activity Restrictions/Additional Instructions: Thank you for choosing [facility] for your healthcare needs today. Please realize this is an emergency room and that we are providing you with a medical screening exam and this may not be complete and all inclusive of all the testing and or work up that you may need to determine your ailment or severity of your illness. It is very important that you follow up as instructed or that you return to the Emergency Department should you have concerns or if your condi tion changes or worsens in any way. You are seen today for dental infection continue the Augmentin and follow-up with your Dentist as soon as you are able. Coding Level of Care Code ED Simulation Tech for Antionette Fenton
== END 2023-05-13 15:06 | disposition home or self-care (01) ==
PROVIDERS: Emergency Provider Family Medicine; PCP Family Medicine
DX: K04.7 Periapical abscess without sinus (principal); Z79.01 Long term (current) use of anticoagulants; Z79.82 Long term (current) use of aspirin; Z79.4 Long term (current) use of insulin; Z87.891 Personal history of nicotine dependence; E11.22 Type 2 diabetes mellitus with diabetic chronic kidney disease; I12.0 Hypertensive chronic kidney disease with stage 5 chronic kidney disease or end stage renal disease; N18.6 End stage renal disease; I25.10 Atherosclerotic heart disease of native coronary artery without angina pectoris; E78.5 Hyperlipidemia, unspecified; Z94.0 Kidney transplant status; Z95.1 Presence of aortocoronary bypass graft
CPT/HCPCS: 80053; 80061; 80069; 80197; 81000; 82310; 83735; 83970; 85025; 99283

== ENCOUNTER → 2023-05-20 09:28 | Outpatient (BNVA) | payer MEDICARE, OTHER, SELFPAY | PROVIDERS: PCP Family Medicine; Visit Provider Anesthesiology Pain Medicine | DX: M47.816 Spondylosis without myelopathy or radiculopathy, lumbar region; M54.2 Cervicalgia | CPT/HCPCS: 99214 ==

== ENCOUNTER → 2023-05-27 13:48 | Outpatient (BNVA) | payer MEDICARE, OTHER, SELFPAY | PROVIDERS: PCP Family Medicine; Visit Provider Family Medicine | DX: N18.32 Chronic kidney disease, stage 3b (principal); E10.9 Type 1 diabetes mellitus without complications | CPT/HCPCS: 80053; 80061; 80069; 80197; 81003; 82310; 83735; 83970; 85025 ==

== ENCOUNTER → 2023-06-25 09:44 | Outpatient (BNVA) | payer MEDICARE, OTHER, SELFPAY | PROVIDERS: PCP Family Medicine; Visit Provider Family Medicine | DX: Z94.0 Kidney transplant status (principal); R33.9 Retention of urine, unspecified | CPT/HCPCS: 80053; 80069; 80197; 81003; 82310; 83735; 83970; 85025; 87077; 87086; 87184 ==

== ENCOUNTER → 2023-06-30 12:05 | Outpatient (BNVA) | payer MEDICARE, OTHER, SELFPAY | PROVIDERS: PCP Family Medicine; Visit Provider Internal Medicine | DX: I25.10 Atherosclerotic heart disease of native coronary artery without angina pectoris (principal); I48.0 Paroxysmal atrial fibrillation; Z79.01 Long term (current) use of anticoagulants; I12.0 Hypertensive chronic kidney disease with stage 5 chronic kidney disease or end stage renal disease; E11.22 Type 2 diabetes mellitus with diabetic chronic kidney disease; N18.6 End stage renal disease; Z79.4 Long term (current) use of insulin; Z87.891 Personal history of nicotine dependence; I77.89 Other specified disorders of arteries and arterioles; G47.33 Obstructive sleep apnea (adult) (pediatric); Z95.1 Presence of aortocoronary bypass graft; E78.5 Hyperlipidemia, unspecified; E11.51 Type 2 diabetes mellitus with diabetic peripheral angiopathy without gangrene; Z96.41 Presence of insulin pump (external) (internal) | CPT/HCPCS: 99214 ==

== ENCOUNTER 2023-07-01 11:37 | Emergency (ER) | payer MEDICARE, OTHER, SELFPAY ==
[2023-07-01] VITALS (19 sets, daily range): BP systolic 75–130; BP diastolic 33–77; PULSE 57–115; RESP 14–20; TEMP 36.8–37.2; O2SAT 91–98; BMI 27.5
--- NOTE | 2023-07-01 12:25 | XRR_ITS ---
PROCEDURE INFORMATION: Exam: XR Chest Exam date and time: 07/01/2023 12:50 PM Age: 78 years old Clinical indication: Shortness of breath; Additional info: Hypotensive, SOB TECHNIQUE: Imaging protocol: Radiologic exam of the chest. Views: 1 view. COMPARISON: CR (CHEST, ) 02/09/2023 10:28 AM FINDINGS: Lungs: There is mild pulmonary vascular congestion. Increased opacity at both lung bases likely on the basis of edema. Pleural spaces: Bilateral pleural effusions are present, small on the right and small to moderate on the left. Heart/Mediastinum: Stable mild enlargement of cardiac silhouette. Mediastinal configuration is stable. Bones/joints: Prior median sternotomy. Soft tissues: Prominent vascular calcifications are identified in the axillary and supraclavicular regions. XR/XR chest 1V portable [id number] IMPRESSION: 1. 3. Stable enlargement of cardiac silhouette. 2. Pulmonary vascular congestion. Bibasilar interstitial densities most likely interstitial edema. Atypical infection could produce a similar appearance. 3. Bilateral pleural effusions, larger on the left.
[2023-07-01] MEDS: sodium chloride 0.9% 500 ML IV ×2 (12:38→14:35)
[2023-07-01 12:39] LABS: Basophils % 0.2 %; Hematocrit 26.1 % (37-53); Lymphocytes # 0.4 10^3/uL (0.8-4.8); Lymphocytes % 4.3 %; Mean Corpuscular HGB Conc 29.5 g/dL (30-55); Mean Corpuscular Hemoglobin 26.4 pg (27-33); Mean Corpuscular Volume 89.4 fl (82-101); Mean Platelet Volume 10.6 fL (7.4-10.4); Monocytes # 0.6 10^3/uL (0.2-0.9); Monocytes % 6.3 %; Neutrophils # 8.01 10^3/uL (1.8-7.7); Neutrophils % 88.6 %; Nucleated Red Blood Cells % 0 %; Platelet Count 183 10^3/cmm (157-399); Red Blood Count 2.92 10^6/uL (3.85-5.65); Red Cell Distribution Width 15.3 % (12.1-15.1); White Blood Count 9.04 10^3/uL (3.29-11.43)
--- NOTE | 2023-07-01 12:39 | ED_ITS ---
HPI - Weakness 2 General: Chief complaint: Weakness Stated complaint: SOB Time Seen by Provider: 07/01/23 12:25 History of Present Illness: 78-year-old male presents along with his from the nephrology office. Patient found to be hypotensive and referred to ER. Patient endorses progressive weakness, suspected fluid in the abdomen, and now shortness of breath getting worse over the last 2 weeks. 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 He was also diagnosed with a urinary tract infection; this sample was taken last Friday but he did not get started on antibiotics until yesterday. reports that he is taking ciprofloxacin but has only had 2 doses. 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 Chronic heart failure managed with digoxin and bumetanide. Atrial fibrillation on chronic anticoagulation with warfarin. Bladder dysfunction: He performs self cath 4 times per day. Bilateral lower extremity below the knee amputations. Patient endorses 5 to 10 pound weight gain, orthopnea, paroxysmal nocturnal dyspnea, decreased exercise tolerance, fluid retention in the abdomen. He denies cough, fever, chills, rigors, wounds, rashes, stool changes. Associated symptoms: Denies chest pain, chills, dysuria, fever(s), headache(s), syncope or vomiting Review of Systems 2 General: Reports: 10 or more systems reviewed and unremarkable except in HPI and below Const: Denies: fever(s), chills or body aches Eyes: Denies: change in vision ENMT: Denies: throat pain Card: Denies: chest pain or syncope Resp: Denies: productive cough GI: Denies: vomiting or diarrhea : Denies: flank pain, dysuria or urinary frequency Musc: Denies: neck pain, back pain or extremity pain Skin/Breast: Denies: rash or erythema Neuro: Denies: headache(s), numbness in extremities or lack of coordination PFSH ED 2 PFSH: Medical History History of right lower extremity amputation October 2021 Incomplete bladder emptying Recurrent UTI Urolithiasis Acute on chronic kidney failure Elevated C-reactive protein (CRP) Diarrhea Hypertension Insulin pump in place Dehydration Anemia Hyperkalemia Digoxin toxicity MIREILLE (acute kidney injury) Urinary retention Prostatic enlargement COVID-19 vaccine administered moderna x 2 doses Chronic kidney disease Diabetic ulcer of foot associated with diabetes mellitus due to underlying condition, with fat layer exposed Arteriovenous fistula of right upper extremity Long-term use of high-risk medication cellcept, tacrolimus, and chronic prednisone for transplant status CAD (coronary artery disease) Elevated troponin Pressure ulcer of right foot Peripheral artery disease COVID-19 Had twice 09/2020 and 07/2021 Diabetes Type 2, with insulin pump and continuous glucose monitoring, history of DKA when insulin pump not utilized Warfarin anticoagulation Paroxysmal atrial fibrillation Aortic root enlargement Sleep apnea SVT (supraventricular tachycardia) Dyslipidemia 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 Essential hypertension Facet arthritis, degenerative, lumbar spine Surgical History Transplanted kidney History of hand surgery (~2018) right thumb History of repair of right rotator cuff History of arthroscopy of both knees History of neck surgery C6 corpectomy, C5-6, C6-7 anterior discectomy, C5-C7 plate and screw fixation, C5-C7 fusion History of tonsillectomy (~2012) History of shoulder surgery History of partial amputation of toe of right foot (~2010) right 5th History of selective injection of anesthetic agent around lumbar nerve root L3,4,5 left and right 05/2021 History of cystoscopy Other postprocedural status radiofrequency ablation right L2-5 08/2019 radiofrequency ablation right L3-S1 06/2021 radiofrequency ablation left L3- S1 07/2021 Status post epidural steroid injection L4-5 right 11/2019 L3,4,5 left and right 05/2021 History of angioplasty of peripheral vessel (~10/2020) Hx of appendectomy Hx of CABG (~2005) Hx of kidney transplant (~2011) [facility] Hx of amputation below knee (~2018) Family History Mother , AT AGE 94 Heart attack Father , AT AGE 45 MVA (motor vehicle accident) Other CAD (coronary artery disease) Cancer Diabetes Hypertension Social History Smoking and tobacco/nicotine status: former use of tobacco/nicotine Alcohol intake: current Alcohol intake frequency: holidays/special occasions only Substance/Drug Use: never Adopted: No Household members: spouse Marital status: Current occupational status: retired and disabled Physical Exam 2 Narrative: EXAM NARRATIVE: This is an elderly, deconditioned male who appears chronically ill. He prefers to keep his eyes closed and appears generally weak but answers only questions and has normal mental status. Some obvious features on exam include right upper extremity AV fistula (which is no longer being used), bilateral below the knee amputations, insulin pump on the abdomen, obese/distended appearing abdomen. The patient has somewhat dry mucous membranes. His conjunctiva and sclera appear normal. His head is normocephalic and atraumatic. He does have some JVD noted in the neck. He has a strong radial pulse in the extremity where his AV fistula is. I cannot feel his left radial pulse. His blood pressure is low. His respiratory rate is normal. He has diminished breath sounds in the bases bilaterally. No crackles in the upper airways. He is not in matias respiratory distress. He is tachycardic and has intermittently irregular rhythm. He is on room air. The abdomen is soft and nontender but there is a fluid wave present and there is edema of the abdominal wall, particularly in the gravity dependent sections. There is mild edema of his stumps in the bilateral lower extremities as well as some mild edema in both of his hands. No wounds or worrisome rashes noted. No focal neurologic deficits. He is somewhat pale and his skin color and tone does not appear healthy No tenderness over the transplanted kidney in the left lower abdomen Course 2 Vital Signs: Vital signs: Vital Signs Temperature 99.0 F 07/01/23 11:51 Pulse Rate 111 H 07/01/23 18:30 Respiratory Rate 16 07/01/23 17:45 Blood Pressure 99/71 07/01/23 18:30 Pulse Oximetry 95 07/01/23 18:30 Oxygen Delivery Me thod Room Air 07/01/23 18:30 MDM - Weakness Medical Decision Making 78-year-old male with multiple comorbidities and chronic illnesses who presents with hypotension in the setting of apparent (reported by ) renal failure of his transplanted kidney, immunocompromise due to medications for the transplanted kidney, and recently diagnosed urinary tract infection (self caths) status post 2 doses of oral ciprofloxacin. Examination is notable for fluid retention and history is notable for paroxysmal nocturnal dyspnea and orthopnea. I am going to give a 500 cc IV fluid bolus to see how it affects his blood pressure. This may be a case where we may need to move to vasopressors before doing at 30 cc/kg fluid bolus depending on response to the initial 500 cc bolus and lab workup. UPDATE: Chest x-ray my interpretation, portable upright film. Cardiomegaly, bilateral pleural effusions left greater than right, haziness in the lung nieto probably associated with edema. Urine analysis notable for 1+ proteinuria, red blood cells, white blood cells, leukocyte Estrace and bacteria. This is suggestive of a UTI. I went through the patient's urine cultures from previously and it looks like he has Klebsiella as the previous 2 infections. Both of these have been sensitive to cefepime. I am going to choose this given the fact that he has acute kidney injury. Notably the last culture report shows that the Klebsiella was resistant to Cipro, which is what he was prescribed yesterday. Patient's hemoglobin is 7.7. This is stable. His baseline creatinine is around 2. His creatinine today is 4.2. He has a BUN of 67. His bicarb is low at 16. His phosphorus is elevated. No significant problems with potassium, sodium, chloride. Lactic acid is normal. Supratherapeutic INR at 6.6. 1:40 PM. Consult placed for nephrology. [address] Flores (nephrology). She suspects this is more of a acute tubular necrosis/prerenal syndrome given his hypotension and UTI. However, she is asked if I could call [facility] to see if they happen to have beds open. If so, we will transfer there as a precaution. If not, then she would be willing to consult in the hospital here. Concerning the patient's blood pressure and fluid overload; she recommends giving another 500 cc of IV fluid for a total of 1 L and reassessing. I discussed with Dr Lyon at [facility], nephrology fellow, who suspects this is ATN/prerenal. I discussed this case with Dr. Munguia, hospitalist, who does not feel comfortable admitting. I discussed this case with Dr Haider, hospitalist, who recommends attempt to transfer to [facility]. I discussed with Dr Lama, hospitalist, [facility]. She accepts but notes 4-6 days waitlist. I have asked for consults from Dr Sheffield and Dr Munguia to see patient in ER today and each day while patient remains here. Meanwhile, the ER Fiction Writer is attempting to find alternate placement at a transplant facility around the region. PICC team consulted--pt has high INR. He is currently getting his NE through 18g IV w/o issue. [address] Sheffield; she will consult in ER. [facility] without transplant team or any ICU beds. [address] Dr Munguia will do consult in ER. US Renal Transplant: CONCLUSIONS The renal allograft is located in the left iliac fossa. Normal size and echogenicity Resistive indices >0.8 noted in the renal allograft, suggesting allograft dysfunction such as ATN or rejection Renal artery PSV slightly elevated but within normal limits Renal vein is patent. UPDATE 1830 PICC team hasn't placed PICC yet NE at 14 mcg/min--going up to 16 mcg/min. Discussed with Dr Coffman (ICU attending) and [facility] in [place]--they have transplant team and will accept patient. THey ahve a bed available. Family notified and in agreement. Lab Data 07/01/23 12:10 07/01/23 12:10 Radiology Impressions Chest X-Ray 07/01/23 12:25 IMPRESSION: 1. 3. Stable enlargement of cardiac silhouette. 2. Pulmonary vascular congestion. Bibasilar interstitial densities most likely interstitial edema. Atypical infection could produce a similar appearance. 3. Bilateral pleural effusions, larger on the left. Laboratory Results WBC 9.04 10^3/uL (3.29-11.43) 07/01/23 12:10 RBC 2.92 10^6/uL (3.85-5.65) L 07/01/23 12:10 Hgb 7.70 g/dL (11.27-16.99) L 07/01/23 12:10 Hct 26.1 % (37-53) L 07/01/23 12:10 MCV 89.4 fl (82-101) 07/01/23 12:10 MCH 26.4 pg (27-33) L 07/01/23 12:10 MCHC 29.5 g/dL (30-55) L 07/01/23 12:10 RDW 15.3 % (12.1-15.1) H 07/01/23 12:10 Plt Count 183 10^3/cmm (157-399) 07/01/23 12:10 MPV 10.6 fL (7.4-10.4) H 07/01/23 12:10 Neut % (Auto) 88.6 % 07/01/23 12:10 Lymph % (Auto) 4.3 % 07/01/23 12:10 [place] % (Auto) 6.3 % 07/01/23 12:10 Eos % (Auto) 0.0 % 07/01/23 12:10 Baso % (Auto) 0.2 % 07/01/23 12:10 Neut # (Auto) 8.01 10^3/uL (1.8-7.7) H 07/01/23 12:10 Lymph # (Auto) 0.4 10^3/uL (0.8-4.8) L 07/01/23 12:10 [place] # (Auto) 0.6 10^3/uL (0.2-0.9) 07/01/23 12:10 Eos # (Auto) 0.0 10^3/uL (0.0-0.8) 07/01/23 12:10 Baso # (Auto) 0.0 10^3/uL (0.0-0.1) 07/01/23 12:10 Nucleated RBC % (auto) 0 % 07/01/23 12:10 Nucleated RBCs # 0.0 /100WBC 07/01/23 12:10 PT 60.50 SECONDS (12.1-14.9) H 07/01/23 12:10 INR 6.62 (0.8-1.2) H* 07/01/23 12:10 Sodium 139 mmol/L (136-145) 07/01/23 12:10 Potassium 4.1 mmol/L (3.5-5.1) 07/01/23 12:10 Chloride 101 mmol/L (98-107) 07/01/23 12:10 Carbon Dioxide 16 mmol/L (22-29) L 07/01/23 12:10 Anion Gap 26.1 (5-19) H 07/01/23 12:10 BUN 67 mg/dL (8-23) H 07/01/23 12:10 Creatinine 4.2 mg/dL (0.7-1.2) H 07/01/23 12:10 GFR Calculation Not Reportable 07/01/23 12:10 Glucose 231 mg/dL (65-115) H 07/01/23 12:10 POC Glucose 224 mg/dL (70-110) H 07/01/23 13:08 Calculated Osmolality 315 mOsm/kg (285-295) H 07/01/23 12:10 Lactic Acid 1.7 mmol/L (0.5-2.2) 07/01/23 12:10 Calcium 9.7 mg/dL (8.5-10.5) 07/01/23 12:10 Phosphorus 4.8 mg/dL (2.5-4.5) H 07/01/23 12:10 Magnesium 1.9 mg/dL (1.7-2.3) 07/01/23 12:10 Total Bilirubin 0.6 mg/dL (0.15-1.2) 07/01/23 12:10 AST 12 U/L (0-40) 07/01/23 12:10 ALT 6 U/L (0-41) 07/01/23 12:10 Alkaline Phosphatase 97 U/L (40-130) 07/01/23 12:10 Total Protein 6.1 g/dL (6.6-8.7) L 07/01/23 12:10 Albumin 3.2 g/dL (3.5-5.2) L 07/01/23 12:10 Globulin 2.9 g/dL (1.3-4.6) 07/01/23 12:10 Urine Color Yellow (Yellow) 07/01/23 12:33 Urine Appearance Cloudy (CLEAR) A 07/01/23 12:33 Urine pH 5 (5-7) 07/01/23 12:33 Ur Specific [place] 1.020 (1.005-1.030) 07/01/23 12:33 Urine Protein 1+ (Negative) H 07/01/23 12:33 Urine Glucose (UA) Norm (Normal) 07/01/23 12:33 Urine Ketones 1+ (Negative) H 07/01/23 12:33 Urine Blood 3+ (Negative) H 07/01/23 12:33 Urine Nitrate Negative (Negative) 07/01/23 12:33 Urine Bilirubin Neg (Negative) 07/01/23 12:33 Urine Urobilinogen Norm mg/dL (Negative) 07/01/23 12:33 Ur Leukocyte Esterase 2+ (Negative) H 07/01/23 12:33 Urine RBC Too numerous to cnt /hpf (0-2) H 07/01/23 12:33 Urine WBC Too numerous to cnt /hpf (0-5) H 07/01/23 12:33 Ur Squamous Epith Cells 5-10 /hpf (0-5) H 07/01/23 12:33 Ur Transition Epith Cell 0-4 /hpf 07/01/23 12:33 Amorphous Sediment Not Reportable 07/01/23 12:33 Urine Bacteria 3+ /hpf (NONE) H 07/01/23 12:33 Urine Mucus 1+ /hpf 07/01/23 12:33 Digoxin 0.5 ng/mL (0.6-1.2) L 07/01/23 12:10 All radiology interpretation(s) finalized by discharge (All ED studies--I'm told a CT abd/pelv is pending.) ED provider radiology interpretation(s): CXR 1 View= IMPRESSION: 1. 3. Stable enlargement of cardiac silhouette. 2. Pulmonary vascular congestion. Bibasilar interstitial densities most likely interstitial edema. Atypical infection could produce a similar appearance. 3. Bilateral pleural effusions, larger on the left. EKG Data EKG 1: Interpretation: EKG from 1728; EP interpretation, atrial fibrillation, ventricular rate 100, unsure axis, right bundle branch block morphology, some mild ST changes are present. Critical Care Time 2 Critical Care Time: Critical Care Time: Yes Total Critical Care Time: 120 Attestation: I have spend an extensive amount of time coordinating care, speaking with patient/, re-assessing, and providing critical care for septic shock and MIREILLE. Discharge Plan Discharge Patient Disposition: Xfer Short-Term Hosp Clinical Impression: Anasarca associated with disorder of kidney, MIREILLE (acute kidney injury), CKD (chronic kidney disease), ATN (acute tubular necrosis), Acute UTI, Septic shock Condition: Serious Referrals: Mercy Priest MD [Primary Care Provider] - Coding Level of Care Code ED Human Resources Operations Coordinator for [facility]
--- NOTE | 2023-07-01 12:43 | USCV_ITS ---
Jaya Kidd Age: 78 Gender: M : 1945 Exam Date: 07/01/2023 13:05 Ordering Phys: Anshu Reinoso MD Technologist: Jordan Guerra Exam Location: [facility]_ Indication: lt renal transplant Aortic Velocity @ SMA (cm/s) RIGHT KIDNEY LEFT KIDNEY Velocity (cm/s) Velocity (cm/s) Sys/Landers Sys/Landers Resistive Index Resistive Index / Proximal Renal Artery 126.1 / 2.8 0.98 / Mid Renal Artery 155.2 / 4.2 0.97 / Distal Renal Artery 146.9 / 1.4 0.99 / Hilar 59.1 / 6.0 0.90 / Upper Pole 35.2 / 8.4 0.76 / Mid Pole 43.6 / 10.1 0.77 / Lower Pole 43.0 / 0.0 1.00 Accleration Index (cm/sec2) Hilar 1070.0 0 Upper Pole 606.00 Mid Pole 587.00 Lower Pole 995.00 Kidney Length (mm) 118.3 FINDINGS abnormal high resistance transplant renal and kidney arteries the lt illiac was normal. No thrombus in the lt renal veins the vein did have pulsitile waveforms CONCLUSIONS The renal allograft is located in the left iliac fossa. Normal size and echogenicity Resistive indices >0.8 noted in the renal allograft, suggesting allograft dysfunction such as ATN or rejection Renal artery PSV slightly elevated but within normal limits Renal vein is patent. Rick Bernstein MD (Electronically Signed) Final Date: 01 July 2023 16:11 S
[2023-07-01 12:46] LABS: Lactic Sepsis W/Reflex 1.7 mmol/L (0.5-2.2)
[2023-07-01 12:47] LABS: Alanine Aminotransferase 6 U/L (0-41); Albumin Level 3.2 g/dL (3.5-5.2); Alkaline Phosphatase 97 U/L (40-130); Anion Gap 26.1 (5-19); Aspartate Amino Transferase 12 U/L (0-40); Blood Urea Nitrogen 67 mg/dL (8-23); Calcium 9.7 mg/dL (8.5-10.5); Carbon Dioxide 16 mmol/L (22-29); Chloride 101 mmol/L (98-107); Globulin 2.9 g/dL (1.3-4.6); Glucose 231 mg/dL (65-115); Magnesium 1.9 mg/dL (1.7-2.3); Osmolality Calculated 315 mOsm/kg (285-295); Phosphorus 4.8 mg/dL (2.5-4.5); Potassium 4.1 mmol/L (3.5-5.1); Sodium 139 mmol/L (136-145); Total Bilirubin 0.6 mg/dL (0.15-1.2); Total Protein 6.1 g/dL (6.6-8.7)
[2023-07-01 12:50] LABS: Add Urine Microscopic? YES; Bilirubin Urine Neg (Negative); Blood Urine 3+ (Negative); Glucose Urine UA Norm (Normal); Ketones Urine 1+ (Negative); Leukocyte Esterase Urine 2+ (Negative); Nitrate Urine Negative (Negative); Protein Urine 1+ (Negative); Urine Appearance Cloudy (CLEAR); Urine Color Yellow (Yellow); Urobilinogen Urine Norm (Negative); pH Urine 5 (5-7)
[2023-07-01 12:53] LABS: Add Urine Culture? Yes; Bacteria Urine 3+ /hpf; Mucus Urine 1+ /hpf; RBC Urine TOO NUMEROUS TO CNT /hpf (0-2); Transitional Epi Cells Urine 0-4 /hpf; WBC Urine TOO NUMEROUS TO CNT /hpf (0-5)
--- NOTE | 2023-07-01 13:10 | PC.NURSE ---
Ultrasound at bedside
[2023-07-01 13:11] LABS: Digoxin 0.5 ng/mL (0.6-1.2)
[2023-07-01 13:12] LABS: Glucose Point of Care 224 mg/dL (70-110)
[2023-07-01 13:35] LABS: INR 6.62 (0.8-1.2)
[2023-07-01] MEDS: cefepime 1,000 MG in sodium chloride 0.9% (plus) 50 ML 100 MG IV (15:09)
--- NOTE | 2023-07-01 16:37 | CTR_ITS ---
PROCEDURE INFORMATION: Exam: CT Abdomen And Pelvis Without Contrast Exam date and time: 07/01/2023 8:16 PM Age: 78 years old Clinical indication: Other: Abdominal distention; Prior surgery; Surgery date: 6+ months; Surgery type: Appy TECHNIQUE: Imaging protocol: Computed tomography of the abdomen and pelvis without contrast. Radiation optimization: All CT scans at this facility use at least one of these dose optimization techniques: automated exposure control; mA and/or kV adjustment per patient size (includes targeted exams where dose is matched to clinical indication); or iterative reconstruction. COMPARISON: CT kidney stone [id number] 02/09/2023 12:56 PM RADIATION DOSE METRICS: Total DLP (mGy-cm): 791.43 FINDINGS: Lungs: Bilateral dependent atelectasis versus infiltrate. Pleural spaces: Moderate right and large left pleural effusions. Heart: Cardiomegaly. Cardiomegaly. Coronary arteries: Coronary artery atherosclerotic calcifications. Liver: Normal. No mass. Gallbladder and bile ducts: Cholelithiasis, gallbladder is prominent, ultrasound could further evaluate this. Pancreas: Normal. No ductal dilation. Spleen: Normal. No splenomegaly. Adrenal glands: Normal. No mass. Kidneys and ureters: Bilateral chronic [place] kidney atrophy. Left pelvic renal transplant. Stomach and bowel: Unremarkable. No obstruction. No mucosal thickening. Appendix: No evidence of appendicitis. Intraperitoneal space: Moderate ascites in the upper abdomen. Vasculature: Extensive atherosclerotic calcification at the origin of the celiac, superior mesenteric and bilateral [place] renal arteries with suspected 70-80% luminal narrowing or greater. Lymph nodes: Unremarkable. No enlarged lymph nodes. Urinary bladder: Unremarkable as visualized. Reproductive: Prostate gland enlarged in the base urinary bladder. Bones/joints: Unremarkable. No acute fracture. Soft tissues: Anasarca. CT/CT abdomen pelvis wo con [id number] IMPRESSION: 1. Negative for focal acute inflammatory process in the abdomen or pelvis. 2. Moderate right and large left pleural effusions. 3. Cardiomegaly. 4. Bilateral dependent atelectasis versus infiltrate. 5. Cardiomegaly. 6. Coronary artery atherosclerotic calcifications. 7. Cholelithiasis, gallbladder is prominent, ultrasound could further evaluate this. 8. Moderate ascites in the upper abdomen. 9. Bilateral chronic [place] kidney atrophy. 10. Left pelvic renal transplant. 11. Extensive atherosclerotic calcification at the origin of the celiac, superior mesenteric and bilateral [place] renal arteries with suspected 70-80% luminal narrowing or greater. 12. Prostate gland enlarged in the base urinary bladder. 13. Anasarca.
--- NOTE | 2023-07-01 16:42 | PC.NURSE ---
Spoke with BJORN Olivas regarding PICC line for patient. She is going to try to contact the PICC team if available
--- NOTE | 2023-07-01 16:44 | ECG_ITS ---
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 Measurements Intervals [place] Rate: 100 P: 0 SC: 0 QRS: -39 QRSD: 165 T: 4 QT: 386 QTc: 499 Interpretive Statements ATRIAL FIBRILLATION WITH RAPID VENTRICULAR RESPONSE LEFT AXIS DEVIATION [QRS AXIS < -30] RIGHT BUNDLE BRANCH BLOCK [120+ ms QRS DURATION, UPRIGHT V1, 40+ ms S IN I/aVL/V4/V5/V6] ST DEPRESSION, CONSIDER SUBENDOCARDIAL INJURY [0.1+ mV ST DEPRESSION] Compared to ECG 02/10/2023 10:18:52 Left-axis deviation now present ST (T wave) deviation now present Electronically Signed On 07-01-2023 21:43:[address] JUSTICE by Emmanuel Cornell M.D. [id number]
--- NOTE | 2023-07-01 16:48 | P.HP_ITS ---
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 due to fatigue, malaise, feeling unwell, elevated creatinine. Currently patient is alert to person, to place, to time, can follow commands, most of the history was provided by at bedside, he is a bit encephalopathic this afternoon. 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, with low blood pressures fatigue, malaise, with abdominal distention and increased shortness of breath, upon lab check, his creatinine was elevated, also diagnosed with a UTI, last Friday started antibiotics yesterday, does report fatigue, malaise, chills, no fevers, does report increased anasarca, patient is currently awaiting a bed at [facility], I advised patient that I am not a renal transplant specialist, my concern is with his recent worsening renal function concern for acute transplant rejection, and as he is on CellCept, tacrolimus, prednisone, these medications specifically the tacrolimus levels need to be monitored, and our turnaround time is 4 to 5 days, I would prefer for him to be managed by the transplant team, as this is not my area of expertise, and I am worried about his risk of morbidity and mortality especially now as he is in sepsis, septic shock, from a UTI, his with him and his voiced understanding, all questions answered, Review of Systems 2 Card: Denies: chest pain Resp: Reports: dyspnea GI: Reports: abdominal pain and nausea; Denies: vomiting : Denies: flank pain Musc: Reports: back pain Skin/Breast: Denies: rash Neuro: Denies: headache(s) Psych: Denies: anxiety Medications/Allergies Home Medications Medication Instructions Recorded Confirmed Last Taken Type cetirizine 10 mg tablet (All Day 10 mg PO DAILY@09/02/19 07/01/23 07/01/23 History Allergy (cetirizine)) cholecalciferol (vitamin D3) 75 3,000 unit PO DAILY@89909/02/19 07/01/23 07/01/23 History mcg (3,000 unit) tablet prednisone 5 mg tablet 5 mg PO DAILY@89909/02/19 07/01/23 07/01/23 History aspirin 81 mg tablet,delayed 81 mg PO DAILY@05/25/21 07/01/23 07/01/23 History release (Adult Low Dose Aspirin) insulin aspart U-100 100 unit/mL 1 sliding scale dose .Route 08/20/22 07/01/23 07/01/23 Rx subcutaneous solution (Novolog .COMPLEX 30 days #10 mL U-100 Insulin aspart) atorvastatin 20 mg tablet 20 mg PO BEDTIME@02/09/23 07/01/23 06/30/23 History famotidine 20 mg tablet (Pepcid) 20 mg PO DAILY@02/09/23 07/01/23 07/01/23 History ferrous sulfate 325 mg (65 mg 325 mg PO DAILY@02/09/23 07/01/23 07/01/23 History iron) tablet tacrolimus 0.5 mg capsule, See Rx Instructions .Route .COMPLEX 02/09/23 07/01/23 07/01/23 History immediate-release tacrolimus 1 mg capsule, 1 mg PO BID 02/09/23 07/01/23 07/01/23 History immediate-release warfarin 5 mg tablet See Rx Instructions .Route .COMPLEX 02/09/23 07/01/23 07/01/23 History tramadol 50 mg tablet 50 mg PO BID PRN pain #45 tabs 02/26/23 07/01/23 Unknown Rx amlodipine 5 mg tablet 10 mg (2 x 5 mg) PO DAILY@89903/18/23 07/01/23 07/01/23 Rx #180 tabs digoxin 125 mcg (0.125 mg) tablet 125 mcg PO DAILY@899 90 days #90 03/24/23 07/01/23 07/01/23 Rx tabs tamsulosin 0.4 mg capsule 0.4 mg PO BEDTIME@2100 #90 caps 06/02/23 07/01/23 06/30/23 Rx ciprofloxacin HCl 250 mg tablet 250 mg PO BID #10 tabs 06/27/23 07/01/23 07/01/23 Rx (Cipro) allopurinol 200 mg tablet 200 mg PO DAILY 06/30/23 07/01/23 07/01/23 History bumetanide 0.5 mg tablet 0.5 mg PO DAILY 06/30/23 07/01/23 07/01/23 History calcitriol 0.5 mcg capsule 0.5 mcg PO DAILY 06/30/23 07/01/23 07/01/23 History metoprolol tartrate 25 mg tablet 12.5 mg (1/2 x 25 mg) PO BID #90 06/30/23 07/01/23 Unknown Rx tabs mycophenolate mofetil 250 mg 1,000 mg PO BID 06/30/23 07/01/23 07/01/23 History capsule hydralazine 100 mg tablet 100 mg PO TID 07/01/23 07/01/23 07/01/23 History sodium bicarbonate 650 mg tablet 1,300 mg PO TID 07/01/23 07/01/23 07/01/23 History Allergies Allergy/AdvReac Type Severity Reaction Status Date / Time sulfamethoxazole AdvReac Intermediate acute Verified 06/30/23 12:52 [From kidney Sulfamethoxazole-Trimethoprim] injury and high INR trimethoprim AdvReac Intermediate acute Verified 06/30/23 12:52 [From kidney Sulfamethoxazole-Trimethoprim] injury and high INR PFSH Acute 2 PFSH: Medical History History of right lower extremity amputation October 2021 Incomplete bladder emptying Recurrent UTI Urolithiasis Acute on chronic kidney failure Elevated C-reactive protein (CRP) Diarrhea Hypertension Insulin pump in place Dehydration Anemia Hyperkalemia Digoxin toxicity MIREILLE (acute kidney injury) Urinary retention Prostatic enlargement COVID-19 vaccine administered moderna x 2 doses Chronic kidney disease Diabetic ulcer of foot associated with diabetes mellitus due to underlying condition, with fat layer exposed Arteriovenous fistula of right upper extremity Long-term use of high-risk medication cellcept, tacrolimus, and chronic prednisone for transplant status CAD (coronary artery disease) Elevated troponin Pressure ulcer of right foot Peripheral artery disease COVID-19 Had twice 09/2020 and 07/2021 Diabetes Type 2, with insulin pump and continuous glucose monitoring, history of DKA when insulin pump not utilized Warfarin anticoagulation Paroxysmal atrial fibrillation Aortic root enlargement Sleep apnea SVT (supraventricular tachycardia) Dyslipidemia 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 Essential hypertension Facet arthritis, degenerative, lumbar spine Surgical History Transplanted kidney History of hand surgery (~2018) right thumb History of repair of right rotator cuff History of arthroscopy of both knees History of neck surgery C6 corpectomy, C5-6, C6-7 anterior discectomy, C5-C7 plate and screw fixation, C5-C7 fusion History of tonsillectomy (~2012) History of shoulder surgery History of partial amputation of toe of right foot (~2010) right 5th History of selective injection of anesthetic agent around lumbar nerve root L3,4,5 left and right 05/2021 History of cystoscopy Other postprocedural status radiofrequency ablation right L2-5 08/2019 radiofrequency ablation right L3-S1 06/2021 radiofrequency ablation left L3- S1 07/2021 Status post epidural steroid injection L4-5 right 11/2019 L3,4,5 left and right 05/2021 History of angioplasty of peripheral vessel (~10/2020) Hx of appendectomy Hx of CABG (~2005) Hx of kidney transplant (~2011) [facility] Hx of amputation below knee (~2018) Family History Mother , AT AGE 94 Heart attack Father , AT AGE 45 MVA (motor vehicle accident) Other CAD (coronary artery disease) Cancer Diabetes Hypertension Social History Smoking and tobacco/nicotine status: former use of tobacco/nicotine Alcohol intake: current Alcohol intake frequency: holidays/special occasions only Substance/Drug Use: never Adopted: No Household members: spouse Marital status: Current occupational status: retired and disabled Vitals/I&O/Wt Last Vital Signs Temp 99.0 F 07/01/23 11:51 Pulse 103 H 07/01/23 16:00 Resp 14 07/01/23 16:00 BP 99/56 07/01/23 16:00 Pulse Ox 94 07/01/23 16:00 O2 Del Method Room Air 07/01/23 16:00 Weight last 48 hrs Weight 87.09 kg Physical Exam 2 Const: COMMON NORMALS: no acute distress EXAM LIMITATIONS: altered mental status ORIENTATION/CONSCIOUSNESS: Yes awake, Yes oriented to person, Yes oriented to place and Yes confused; not oriented to time HENMT: COMMON NORMALS: normocephalic HEAD & SCALP: normocephalic Eye: COMMON NORMALS: Equal, round and reactive pupils present and EOMs intact bilaterally Neck/C-Spine: COMMON NORMALS: no JVD Lymph: LYMPHATIC: no lymphadenopathy noted Resp: COMMON NORMALS: normal respiratory effort, No retractions, No use of accessory muscles and clear to auscultation bilaterally AUSCULTATION: clear to auscultation bilaterally Cardio: COMMON NORMALS: no JVD, regular rate, regular rhythm, S1 normal heart sound present and S2 normal heart sound present RATE: regular rate RHYTHM: regular rhythm HEART SOUNDS: S1 normal heart sound present and S2 normal heart sound present GI: OTHER: Abdomen is soft, distended, fluid wave present, no guarding, no rebound, no rigidity, does have diffuse tenderness to palpation Extremity: NARRATIVE EXTREMITY EXAM: Bilateral below-knee amputations Sepsis: Is patient septic: Yes Focused sepsis exam performed: Yes F ocused sepsis exam: Hypotensive, MAP around 65, looks pale, tachycardic heart rate 103, capillary refill greater than 3 seconds, Date exam was performed: 07/01/23 Time exam was performed: 16:00 Data 07/01/23 12:10 07/01/23 12:10 A&P Assessment and plan (1) Sepsis: Qualifiers: Sepsis acute organ dysfunction status: without acute organ dysfunction Sepsis type: sepsis due to unspecified organism Qualified Code(s): A41.9 - Sepsis, unspecified organism (2) Septic shock: (3) Acute renal failure: (4) Long-term use of high-risk medication: (5) Paroxysmal atrial fibrillation: (6) Insulin pump in place: (7) End stage renal disease: (8) MIREILLE (acute kidney injury): (9) Transplanted kidney: (10) Acute UTI: (11) Sepsis associated hypotension: (12) Altered mental status: Qualifiers: Altered mental status type: coma Coma depth: Mary Ann coma 13-15 Coma timing: at arrival to emergency department Qualified Code(s): R40.2412 - Mary Ann coma scale score 13-15, at arrival to emergency department (13) Anemia: (14) Hx of CABG: (15) Hx of amputation below knee: (16) Supratherapeutic INR: Plan Acute encephalopathy ? Likely secondary to UTI, sepsis Sepsis, with septic shock, secondary to UTI -MAP around 60 -Status post fluid therapy, evidence of metabolic acidosis, ? Plan, ? Start meropenem, he has risk factors for ESBL infections, current UTIs, immunocompromise -Start vancomycin as patient's prior urine cultures have shown enterococcal species ? Start albumin therapy, ? Start fluid therapy, statin ? Start midodrine 5 mg 3 times daily, ? MAP greater than 65, Levophed has been started in the ER ? Blood cultures ?urine cultures, ? Monitor clinical status closely Acute renal failure with history of renal transplant ? Dehydration versus transplant rejection versus sepsis from UTI -Renal ultra sound shows FINDINGS abnormal high resistance transplant renal and kidney arteries the lt illiac was normal. No thrombus in the lt renal veins the vein did have pulsitile waveforms CONCLUSIONS The renal allograft is located in the left iliac fossa. Normal size and echogenicity Resistive indices >0.8 noted in the renal allograft, suggesting allograft dysfunction such as ATN or rejection Renal artery PSV slightly elevated but within normal limits Renal vein is patent. ? Plan, ? Continue tacrolimus/CellCept/prednisone -IV fluids -Nephrology consulted Supratherapeutic INR, likely secondary to Coumadin, hold Coumadin Atrial fibrillation,rate is well-controlled, continue to hold anticoagulation given supratherapeutic INR Anemia, hemoglobin currently stable, no complaints of bloody or black stools Type 2 diabetes mellitus, insulin pump in place, current basal rate set at 1.6 more, with boluses set at 0.64, Accu-Cheks Abdominal distention, CT scan abdomen pelvis without contrast Currently patient is awaiting a bed at [facility], awaiting transfer, hospitalist team was called for consultation while patient is awaiting a bed - Attestations 2 Medical Necessity Statement*: Patient requires hospitalization for inpatient, greater than 2 minutes, for sepsis septic shock secondary UTI, with acute renal failure concerns for transplant rejection, supratherapeutic INR Diagnoses Sepsis A41.9 Sepsis acute organ dysfunction status: without acute organ dysfunction Sepsis type: sepsis due to unspecified organism Septic shock A41.9; R65.21 Acute renal failure N17.9 Long-term use of high-risk medication Z79.899 Paroxysmal atrial fibrillation I48.[address] Z96.41 End stage renal disease N18.6 MIREILLE (acute kidney injury) N17.9 Transplanted kidney Z94.0 Acute UTI N39.0 Sepsis associated hypotension A41.9; I95.9 Altered mental status R40.2412 Altered mental status type: coma Coma depth: Mary Ann coma 13-15 Coma timing: at arrival to emergency department Anemia D64.9 Hx of CABG Z95.1 Hx of amputation below knee Z89.519 Supratherapeutic INR R79.1
[2023-07-01] MEDS: sodium chloride 0.9% 1,000 ML 100 ML IV (17:09)
[2023-07-01] MEDS: norepinephrine 4 MG/250 ML BAG 15 MG IV (17:10)
--- NOTE | 2023-07-01 17:20 | PC.NURSE ---
Per [facility], [facility], the PICC team will be coming in some time tonight, they were unable to give ETA
[2023-07-01] MEDS: midodrine 5 mg TABLET PO (18:31)
[2023-07-01] MEDS: pantoprazole 40 mg SDV IVP (18:33)
[2023-07-01] MEDS: sodium bicarbonate 8.4% 1 mEq/mL 50mL Syr 50 MEQ IVP (18:34)
[2023-07-01] MEDS: albumin 25 G/100 ML BAG 60 G IV (18:41)
[2023-07-01 18:44] LABS: Troponin(5th) Baseline 783 ng/L (0-15)
[2023-07-01 18:50] LABS: Procalcitonin 0.97 ng/mL (0-0.5); Thyroid Stimulating Hormone 7.05 uIU/mL (0.27-4.20)
[2023-07-01 18:52] LABS: Erythrocyte Sedimentation Rate 30 mm/hr (0-10)
[2023-07-01] MEDS: meropenem 1,000 MG in sodium chloride 0.9% (plus) 50 ML 100 MG IV (18:55)
[2023-07-01 19:03] LABS: Blood Urea Nitrogen 61 mg/dL (8-23); C Reactive Protein 101.3 mg/L (0.0-4.9); Calcium 8.6 mg/dL (8.5-10.5); Carbon Dioxide 16 mmol/L (22-29); Chloride 104 mmol/L (98-107); Creatine Phosphokinase 80 U/L (39-308); Glucose 230 mg/dL (65-115); Osmolality Calculated 313 mOsm/kg (285-295); Sodium 139 mmol/L (136-145)
--- NOTE | 2023-07-01 19:15 | PC.NURSE ---
PICC placement being done at bedside by PICC RN
--- NOTE | 2023-07-01 19:32 | XRR_ITS ---
PROCEDURE INFORMATION: Exam: XR Chest Exam date and time: 07/01/2023 7:44 PM Age: 78 years old Clinical indication: Device placement; Patient HX: Picc line placement #1 TECHNIQUE: Imaging protocol: Radiologic exam of the chest. Views: 1 view. COMPARISON: CR XR chest 1V portable [id number] 07/01/2023 12:50 PM FINDINGS: Tubes, catheters and devices: Left-sided PICC line with tip over the right atrium. Lungs: Mild pulmonary vascular congestion. Pleural spaces: Small bilateral pleural effusions. Heart/Mediastinum: Cardiomegaly. Bones/joints: Sternotomy wires. XR/XR chest 1V portable [id number] IMPRESSION: 1. Left-sided PICC line with tip over the right atrium. 2. Small bilateral pleural effusions. 3. Cardiomegaly. 4. Sternotomy wires. 5. Mild pulmonary vascular congestion.
--- NOTE | 2023-07-01 19:51 | XRR_ITS ---
PROCEDURE INFORMATION: Exam: XR Chest Exam date and time: 07/01/2023 7:56 PM Age: 78 years old Clinical indication: Device placement; Patient HX: Picc line placement # 2; Additional info: S/P picc placement, repositioning TECHNIQUE: Imaging protocol: Radiologic exam of the chest. Views: 1 view. COMPARISON: CR (CHEST, ) 07/01/2023 7:44 PM FINDINGS: Tubes, catheters and devices: Left-sided PICC line with tip at the atrial caval junction. Lungs: Mild pulmonary vascular congestion. Right lower lobe atelectasis versus minimal infiltrate. Pleural spaces: Small bilateral pleural effusions. Heart/Mediastinum: Cardiomegaly. Bones/joints: Sternotomy wires. XR/XR chest 1V [id number] IMPRESSION: 1. Left-sided PICC line with tip at the atrial caval junction. 2. Cardiomegaly. 3. Mild pulmonary vascular congestion. 4. Small bilateral pleural effusions. 5. Sternotomy wires. 6. Right lower lobe atelectasis versus minimal infiltrate.
--- NOTE | 2023-07-01 20:18 | PC.NURSE ---
Consulted for PICC placement on ER patient with multiple health issues on vasopressors. Explained procedure to pt and spouse and answered questions. Made sure they understood all risks, especially risk to damage vessel used for insertion to where it might not be viable for a future fistula. Pt and spouse verbalized understanding and signed consent for pt. Assessed LUE as pt has RUE fistula that has been patent for over 15 years, though not in use post renal transplant. Noted basilic was a good target at greater than 5mm in diameter and showed no signs or symptoms of thrombus or stenosis. Using US guidance, MST, and sterile technique the LUE basilic vein was accessed x 1 stick. Device fed easily. All 3 ports aspirate and flush. Device secured and dressed. EBL 5 ml. Chest xray ordered and performed. ER doctor read xray and suggested pulling it back between 3 and 4 cm. Therefore, the line was pulled back to expose 3.5 cm beyond the zero gayle on the catheter using sterile technique and secured and dressed. Chest xray performed and pending reading. Pt tolerated well. Held pressure for 5 minutes post xray as pt started oozing from insertion site. Hemostasis achieved. Then light pressure dressing applied. Report to primary nurse.
[2023-07-01] MEDS: morphine 4 mg/mL SDV 1 mL 2 MG IVP (20:32)
[2023-07-01] MEDS: tamsulosin 0.4 mg Capsule PO (20:36)
[2023-07-01] MEDS: tacrolimus 0.5 mg Capsule 1 MG PO (20:36)
[2023-07-01 20:47] LABS: Estmated Average Glucose 123; Hemoglobin A1C 5.9 % (4.0-6.0)
--- NOTE | 2023-07-01 21:02 | ECG_ITS ---
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 Measurements Intervals [place] Rate: 107 P: 0 NC: 0 QRS: 2 QRSD: 166 T: 38 QT: 398 QTc: 533 Interpretive Statements ATRIAL FIBRILLATION WITH RAPID VENTRICULAR RESPONSE WITH ABERRANT CONDUCTION OR VENTRICULAR PREMATURE COMPLEXES INDETERMINATE AXIS RIGHT BUNDLE BRANCH BLOCK [120+ ms QRS DURATION, UPRIGHT V1, 40+ ms S IN I/aVL/V4/V5/V6] Compared to ECG 07/01/2023 17:28:10 Ventricular premature complex(es) now present Aberrant conduction of supraventricular beat(s) now present Indeterminate axis now present Left-axis deviation no longer present ST (T wave) deviation no longer present Electronically Signed On 07-01-2023 21:52:27 HI LO DRIVER by Emmanuel Cornell M.D. [id number]
[2023-07-01] MEDS: norepinephrine 4 MG/250 ML BAG 67.5 MG IV (21:19)
[2023-07-01] MEDS: vancomycin 1,250 MG/250 ML PIGGYBACK 250 MG IV (21:20)
[2023-07-01] MEDS: sodium bicarbonate 650 mg Tablet 1300 MG PO (21:20)
[2023-07-01] MEDS: atorvastatin 40 mg Tablet 20 MG PO (21:21)
[2023-07-01 21:22] LABS: Adenovirus Not Detected (NOT DETECT); Chlamydia Pneumoniae Not Detected (NOT DETECT); Coronavirus 229E,HKU1,NL63,OC4 Not Detected (NOT DETECT); Human Metapneumovirus Not Detected (NOT DETECT); Human Rhinovirus/Enterovirus Not Detected (NOT DETECT); Influenza A Not Detected (NOT DETECT); Influenza A H1 Not Detected (NOT DETECT); Influenza A H1-2009 Not Detected (NOT DETECT); Influenza A H3 Not Detected (NOT DETECT); Influenza B Not Detected (NOT DETECT); Mycoplasma Pneumoniae Not Detected (NOT DETECT); Parainfluenza Virus Type 1 Not Detected (NOT DETECT); Parainfluenza Virus Type 2 Not Detected (NOT DETECT); Parainfluenza Virus Type 3 Not Detected (NOT DETECT); Parainfluenza Virus Type 4 Not Detected (NOT DETECT); Respiratory Syncytial Virus A Not Detected (NOT DETECT); Respiratory Syncytial Virus B Not Detected (NOT DETECT); SARS-COV-2 Not Detected (NOT DETECT)
--- NOTE | 2023-07-02 17:33 | PC.NURSE ---
LAB RESULTS FAXED TO ICU.
== END 2023-07-01 22:14 | disposition short-term general hospital (02) ==
PROVIDERS: Family Medicine; Emergency Provider Emergency Medicine; PCP Family Medicine
DX: A41.9 Sepsis, unspecified organism (principal); R65.21 Severe sepsis with septic shock; N04.9 Nephrotic syndrome with unspecified morphologic changes; I12.0 Hypertensive chronic kidney disease with stage 5 chronic kidney disease or end stage renal disease; E11.22 Type 2 diabetes mellitus with diabetic chronic kidney disease; N18.6 End stage renal disease; N17.0 Acute kidney failure with tubular necrosis; N39.0 Urinary tract infection, site not specified; Z87.891 Personal history of nicotine dependence; Z94.0 Kidney transplant status; Z95.1 Presence of aortocoronary bypass graft; Z89.519 Acquired absence of unspecified leg below knee; E78.5 Hyperlipidemia, unspecified; Z96.41 Presence of insulin pump (external) (internal); Z79.4 Long term (current) use of insulin
CPT/HCPCS: 36415; 36416; 36573; 71045; 74176; 80048; 80053; 80162; 80197; 81001; 82550; 82962; 83036; 83605; 83735; 83880; 84100; 84145; 84443; 84484; 85025; 85610; 85651; 86140; 87040; 87077; 87086; 87186; 87486; 87581; 87633; 93005; 93975; 96365; 96366; 96367; 96368; 96375; 99291; C1751; C9113; J0692; J2185; J2270; J3370; J7030; J7040; J7507; J7517; P9046